=== PATIENT | female | born 1955 | race Caucasian/White ===

== ENCOUNTER → 2018-01-03 | Outpatient (CLI) | payer BC ==
[2018-01-03 10:19] LABS: Basophils # (A) 0.1 k/uL (0-0.2); Basophils % (A) 1 %; Eosinophils # (A) 0.4 k/uL (0-0.7); Eosinophils % (A) 6 %; HCT 44.4 % (34.0-46.0); HGB 14.7 gm/dL (11.4-16.0); Lymphocytes # (A) 2.6 k/uL (1.0-4.8); Lymphocytes % (A) 34 %; MCH 29.6 pg (25.0-35.0); MCHC 33.1 g/dL (31.0-37.0); MCV 89.3 fL (80.0-100.0); Monocytes # (A) 0.5 k/uL (0-1.0); Monocytes % (A) 6 %; Neutrophils # (A) 4.1 k/uL (1.3-7.7); Neutrophils % (A) 52 %; Platelet Count 238 k/uL (150-450); RBC 4.97 m/uL (3.80-5.40); RDW 12.6 % (11.5-15.5); WBC 7.9 k/uL (3.8-10.6)
[2018-01-03 10:37] LABS: Albumin 3.8 g/dL (3.5-5.0); Potassium 4.9 mmol/L (3.5-5.1); Total Bilirubin 0.4 mg/dL (0.2-1.3); Total Protein 7.4 g/dL (6.3-8.2)
[2018-01-03 10:52] LABS: T4, Free (Free Thyroxine) 1.74 ng/dL (0.78-2.19)
== END | disposition home or self-care (01) ==
LOC: LABWHC1 08:41
PROVIDERS: ATTEND Family Medicine
DX: I10 Essential (primary) hypertension (principal); E03.9 Hypothyroidism, unspecified; E11.65 Type 2 diabetes mellitus with hyperglycemia
CPT/HCPCS: 36415; 80053; 80061; 82043; 82570; 83036; 84439; 84443; 85025

== ENCOUNTER 2019-05-16 21:10 | Inpatient (IN) | payer MEDICARE ==
[2019-05-16] MEDS ORDERED: ONDANSETRON 4 MG/2 ML VIAL IVP STA (21:27)
[2019-05-16] MEDS ORDERED: SODIUM CHLORIDE 0.9% 1,000 ML IV STA (21:27)
--- NOTE | 2019-05-16 22:02 | ED ---
General Adult HPI - General Chief complaint: Nausea/Vomiting/Diarrhea Stated complaint: Vomiting Time Seen by Provider: 05/16/19 21:26 Source: patient Mode of arrival: ambulatory Limitations: no limitations - History of Present Illness Initial comments: Cara is a pleasant 63 yo female with PMH of kidney stones who presents to the ER this evening for evaluation of 2 days of intermittent left sided flank pain with associated nausea and vomiting. Patient reports the pain began yesterday around 4 AM it woke her from sleep, she had intermittent episodes of severe stabbing flank pain with associated nausea and vomiting. She didn't eat anything throughout the day yesterday but her insulin. Monitor her glucose which was fine. She was able sleep throughout the night, she forced herself to eat a small breakfast today, throughout the day she's continued to have episodes of intermittent pain. She's not noticed any dysuria or obvious hematuria or ur inary frequency. She's not had any change in bowel or bladder habits. She has no history of colitis or diverticulitis. Her last colonoscopy was less than 5 years ago was normal and she was advised to follow-up in 10 years. Patient states that this pain is similar but not as severe as her previous kidney stone. However she since to have more nausea and GI symptoms with this pain then she recalls with her previous kidney stone. - Related Data Home Medications Medication Instructions Recorded Confirmed Clopidogrel [Plavix] 75 mg PO DAILY 01/31/14 05/16/19 Metoprolol Tartrate [Lopressor] 25 mg PO BID 01/31/14 05/16/19 Ranitidine HCl [Zantac] 300 mg PO BID 01/31/14 05/16/19 Insulin Aspart (For Pump) [NovoLOG 0.01 unit SQ-PUMP CONTINUOUS 05/16/19 (For Pump)] Levothyroxine Sodium [Synthroid] 112 mcg PO DAILY 05/16/19 05/16/19 Losartan Potassium 100 mg PO DAILY 05/16/19 05/16/19 amLODIPine [Norvasc] 5 mg PO DAILY 05/16/19 05/16/19 metFORMIN HCL ER [Glucophage Xr] 1,000 mg PO DAILY 05/16/19 05/16/19 Allergies Allergy/AdvReac Type Severity Reaction Status Date / Time No Known Allergies Allergy Verified 05/16/19 21:44 Review of Systems ROS Statement: Those systems with pertinent positive or pertinent negative responses have been documented in the HPI. ROS Other: All systems not noted in ROS Statement are negative. Past Medical History Past Medical History: Diabetes Mellitus, Hypertension Additional Past Medical History / Comment(s): hypothyroid History of Any Multi-Drug Resistant Organisms: None Reported Past Surgical History: Hysterectomy Past Psychological History: No Psychological Hx Reported Smoking Status: Never smoker Past Alcohol Use History: None Reported Past Drug Use History: None Reported General Exam - General Exam Comments Initial Comments: Physical Exam GENERAL: Patient is well-developed and well-nourished. Patient is nontoxic and well-hydrated and is in no distress. HENT: Normocephalic, Atraumatic. EYES: PERRL, EOMI PULMONARY: Unlabored respirations. No audible rales rhonchi or wheezing was noted. CARDIOVASCULAR: There is a regular rate and rhythm without any murmurs gallops or rubs. ABDOMEN: Soft and nontender with normal bowel sounds. Tenderness to percussion of left flank No tenderness to palpation left abdomen Non-peritoneal SKIN: Skin is clear with no lesions or rashes and otherwise unremarkable. : Deferred NEUROLOGIC: Patient is alert and oriented x3. Moving all extremities spontaneously MUSCULOSKELETAL: Normal extremities with adequate strength and full range of motion. No lower extremity swelling or edema. No calf tenderness. PSYCHIATRIC: Normal psychiatric evaluation. Limitations: no limitations Course Vital Signs 05/16/19 05/16/19 05/17/19 21:12 22:15 00:00 Temperature 98.6 F Pulse Rate 92 87 Respiratory 16 18 20 Rate Blood Pressure 143/71 227/85 O2 Sat by Pulse 97 97 Oximetry 05/17/19 01:00 Temperature 99.0 F Pulse Rate 90 Respiratory 17 Rate Blood Pressure 151/66 O2 Sat by Pulse 97 Oximetry Medical Decision Making - Medical Decision Making The patient was seen and evaluated history is obtained from the patient and at bedside and 63-year-old female with type I diabetic with history of kidney stones presenting with colicky left-sided flank pain with associated nausea vomiting no change in bowel or bladder habits Patient reports she had episode of pain and vomiting prior to arrival in the emergency department her pain is subsequently improved significantly Labs and imaging were ordered Labs with leukocytosis is likely reactive to the nausea and vomiting, patient is mildly hyperglycemic with acute kidney injury - IV fluids ordered Patient is also noted to be mildly hyperglycemic, glucose in the 260s also reading in the 260s on continuous glucose monitoring pump. At this point we will discontinue her insulin pump and treat with subcutaneous insulin. Urinalysis with gross contamination however given the patient's symptoms we will give a dose of Rocephin Patient with persistent nausea and vomiting after first dose of antiemetics, morphine Reglan and Benadryl were ordered Given the patient is a type I diabetic with difficult to control sugars, persistent nausea and vomiting we will plan to admit for fluid resuscitation glucose monitoring and further evaluation. Patient care was discussed with Dr. Goodwin who agrees with this plan. She was reevaluated after repeat medications, pain improved to a 3 out of 10, nausea is resolved she's had no further vomiting in the emergency department. Patient transferred to the floor for admission. - Lab Data Result diagrams: 05/16/19 22:10 05/16/19 22:10 Lab Results 05/16/19 05/16/19 05/16/19 Range/Units 22:05 22:10 22:10 WBC 19.1 H (3.8-10.6) k/uL RBC 4.70 (3.80-5.40) m/uL Hgb 13.6 (11.4-16.0) gm/dL Hct 42.5 (34.0-46.0) % MCV 90.4 (80.0-100.0) fL MCH 28.9 (25.0-35.0) pg MCHC 31.9 (31.0-37.0) g/dL RDW 13.0 (11.5-15.5) % Plt Count 291 (150-450) k/uL Neutrophils % 84 % Lymphocytes % 9 % Monocytes % 4 % Eosinophils % 2 % Basophils % 1 % Neutrophils # 16.0 H (1.3-7.7) k/uL Lymphocytes # 1.7 (1.0-4.8) k/uL Monocytes # 0.7 (0-1.0) k/uL Eosinophils # 0.3 (0-0.7) k/uL Basophils # 0.2 (0-0.2) k/uL Sodium 138 (137-145) mmol/L Potassium 4.8 (3.5-5.1) mmol/L Chloride 103 (98-107) mmol/L Carbon Dioxide 20 L (22-30) mmol/L Anion Gap 15 mmol/L BUN 25 H (7-17) mg/dL Creatinine 1.54 H (0.52-1.04) mg/dL Est GFR (CKD-EPI)AfAm 41 (>60 ml/min/1.73 sqM) Est GFR (CKD-EPI)NonAf 35 (>60 ml/min/1.73 sqM) Glucose 262 H (74-99) mg/dL Calcium 9.6 (8.4-10.2) mg/dL Total Bilirubin 0.7 (0.2-1.3) mg/dL AST 32 (14-36) U/L ALT 9 (9-52) U/L Alkaline Phosphatase 108 (38-126) U/L Total Protein 8.5 H (6.3-8.2) g/dL Albumin 4.1 (3.5-5.0) g/dL Lipase 47 (23-300) U/L Urine Color Yellow Urine Appearance Cloudy H (Clear) Urine pH 5.5 (5.0-8.0) Ur Specific [place] 1.022 (1.001-1.035) Urine Protein 1+ H (Negative) Urine Glucose (UA) 3+ H (Negative) Urine Ketones 1+ H (Negative) Urine Blood Moderate H (Negative) Urine Nitrite Negative (Negative) Urine Bilirubin Negative (Negative) Urine Urobilinogen <2.0 (<2.0) mg/dL Ur Leukocyte Esterase Large H (Negative) Urine RBC 40 H (0-5) /hpf Urine WBC Clumps Occasional H (None) /hpf Ur Squamous Epith Cells 20 H (0-4) /hpf Urine Bacteria Moderate H (None) /hpf Urine Mucus Rare H (None) /hpf Urine Yeast (Budding) Few H (None) /hpf Disposition Clinical Impression: Kidney stone on left side, Nausea and vomiting, Leukocytosis Disposition: HOME SELF-CARE Condition: Stable Is patient prescribed a controlled substance at d/c from ED?: No
[2019-05-16 22:28] LABS: Basophils # (A) 0.2 k/uL (0-0.2); Basophils % (A) 1 %; Eosinophils # (A) 0.3 k/uL (0-0.7); Eosinophils % (A) 2 %; HCT 42.5 % (34.0-46.0); HGB 13.6 gm/dL (11.4-16.0); Lymphocytes # (A) 1.7 k/uL (1.0-4.8); Lymphocytes % (A) 9 %; MCH 28.9 pg (25.0-35.0); MCHC 31.9 g/dL (31.0-37.0); MCV 90.4 fL (80.0-100.0); Mean Platelet Volume 7.2; Monocytes # (A) 0.7 k/uL (0-1.0); Monocytes % (A) 4 %; Neutrophils % (A) 84 %; Platelet Count 291 k/uL (150-450); WBC 19.1 k/uL (3.8-10.6)
[2019-05-16 22:40] LABS: Appearance,Urine Cloudy (Clear); Bacteria,Urine Moderate /hpf; Bilirubin,Urine Negative (Negative); Blood,Urine Moderate (Negative); Budding Yeast,Urine Few /hpf; Color,Urine Yellow; Glucose,Urine (UA) 3+ (Negative); Ketones,Urine 1+ (Negative); Leukocyte Esterase,Urine Large (Negative); Mucus,Urine Rare /hpf; Nitrite,Urine Negative (Negative); PH, Urine 5.5 (5.0-8.0); Protein,Urine 1+ (Negative); RBC,Urine 40 /hpf (0-5); Specific Gravity,Urine 1.022 (1.001-1.035); Squamous Epithelial Cell,Urine 20 /hpf (0-4); Urobilinogen,Urine <2.0 mg/dL (<2.0)
--- NOTE | 2019-05-16 22:47 | XR ---
EXAMINATION TYPE: XR KUB DATE OF EXAM: 05/16/2019 COMPARISON: NONE HISTORY: Left flank pain TECHNIQUE: 2 views FINDINGS: There is no sign of intestinal obstruction or pneumoperitoneum. Fecal pattern is normal. Ellie ng bases are clear. There are no pathologic calcifications over the kidneys. There is 7 mm calcificat ion over the right paraspinal lumbar spine at the L4 level. This is opposite the side of the pain. Cl inical significance is not clear. IMPRESSION: Calcification on the right side at the L4 level of uncertain significance. No sign of acu te abdomen. No free air. No calcifications seen on the left side.
[2019-05-16 22:55] LABS: Calcium 9.6 mg/dL (8.4-10.2); Total Bilirubin 0.7 mg/dL (0.2-1.3)
[2019-05-16 23:08] LABS: Albumin 4.1 g/dL (3.5-5.0); Potassium 4.8 mmol/L (3.5-5.1); Total Protein 8.5 g/dL (6.3-8.2)
[2019-05-16] MEDS ORDERED: cefTRIAXone IN SWFI 1,000 MG/10 ML SYRINGE IVP STA (23:26)
--- NOTE | 2019-05-16 23:52 | CT ---
EXAMINATION TYPE: CT renal stones wo con DATE OF EXAM: 05/16/2019 HISTORY: Left Flank pain CT DLP: 1593.40 mGycm. Automated Exposure Control for Dose Reduction was Utilized. TECHNIQUE: CT scan of the abdomen and pelvis is performed without oral or IV contrast. COMPARISON: 01/31/2014 FINDINGS: There is hiatal hernia. There is minimal atelectasis left lower lobe adjacent to the hiata l hernia. There is no pleural effusion. There is coronary artery calcification. There is no pericardi al effusion. Liver shows no focal defect. There is possible cholesterol gallstone. Spleen is intact. There is no h epatic mass. The stomach is intact. There is no adrenal mass. There is left-sided hydronephrosis and mild perinephric edema. There is pro ximal left hydroureter. There is 4 mm calculus proximal left ureter. There is extensive renal vascula r calcification. There are probably multiple small renal calculi bilaterally measuring less than 3 mm . There is no retroperitoneal adenopathy. Bladder distends smoothly. There is no inguinal hernia. The re is no free fluid in the pelvis. There is no mesenteric edema. There is no ascites. The appendix ap pears normal. There are a few sigmoid diverticula. There is no sign of diverticulitis. There is multi level lumbar spondylotic changes. There is no compression fracture. There is vacuum disc from L2 to S 1. The bony pelvis is intact. There is umbilical hernia that contains fat. Unchanged. IMPRESSION: There is probably a single gallstone. No dilated ducts. Left-sided hydronephrosis related to obstructing small calculus proximal left ureter that is a change compared to old exam. Atherosclerotic vascular disease. Numerous renal calcifications that are mostl y vascular that are a change compared to old exam. Hiatal hernia unchanged.
[2019-05-16] MEDS ORDERED: METOCLOPRAMIDE 5 MG/ML 2 ML VIAL IVP STA (23:58)
[2019-05-16] MEDS ORDERED: MORPHINE SULFATE 4 MG/ML SYRINGE IVP STA (23:59)
[2019-05-16] MEDS ORDERED: diphenhydrAMINE 50 MG/ML 1 ML VIAL IVP STA (23:59)
[2019-05-17] MEDS ORDERED: MORPHINE SULFATE 4 MG/ML SYRINGE IV PRN (00:58)
[2019-05-17] MEDS ORDERED: NALOXONE 0.4 MG/ML 1 ML VIAL IV PRN (00:58)
[2019-05-17] MEDS ORDERED: INSULIN REGULAR 100 UNIT/ML VIAL SQ ONE (01:00)
[2019-05-17] MEDS ORDERED: SODIUM CHLORIDE 0.9% 1,000 ML IV SCH (01:00)
--- NOTE | 2019-05-17 02:30 | P.HPIM ---
History of Present Illness H&P Date: 05/17/19 Patient is a 63-year-old female with a PMH of type 1 diabetes mellitus (on insulin pump), hypertension, hypothyroid rhythm, and GERD who presented to the ED with left flank and suprapubic pain along with chills. The patient reports that she was in her usual state of health until 05/15 at 5 PM when she developed left flank pain. The pain radiated towards her groin, was a 8 out of 10 at its worst, constant, with no alleviating or exacerbating features. The patient notes that she previously had a kidney stone many decades ago and that this pain was similar. The pain then gradually moved entirely towards her suprapubic region by earlier today. At the time of interview, she notes that her pain had improved to a 2/10. She noted subjective chills along with nausea and multiple episodes of vomiting at home. She denied dysuria, hematuria,dizziness, or diarrhea. She underwent an extensive evaluation in the emergency room with a renal CT showing left-sided hydronephrosis along with a 4 mm calculus. Laboratory evaluation revealed WBC count of 19, hemoglobin 13.6, platelets 291, sodium 138, potassium 4.8, BUN 25, creatinine 1.54, and a glucose of 262. UA revealed 20 epithelial cells w/ large LEs. Review of Systems Pertinent positives and negatives as discussed in HPI, a complete review of systems was performed and all other systems are negative. Past Medical History Past Medical History: Diabetes Mellitus, Hypertension Additional Past Medical History / Comment(s): hypothyroid History of Any Multi-Drug Resistant Organisms: None Reported Past Surgical History: Hysterectomy Past Psychological History: No Psychological Hx Reported Smoking Status: Never smoker Past Alcohol Use History: None Reported Past Drug Use History: None Reported - Past Family History Mother Family Medical History: No Reported History Father Additional Family Medical History / Comment(s): Heart history Medications and Allergies Home Medications Medication Instructions Recorded Confirmed Type Clopidogrel [Plavix] 75 mg PO DAILY 01/31/14 05/16/19 History Metoprolol Tartrate [Lopressor] 25 mg PO BID 01/31/14 05/16/19 History Ranitidine HCl [Zantac] 300 mg PO BID 01/31/14 05/16/19 History Insulin Aspart (For Pump) [NovoLOG 0.01 unit SQ-PUMP CONTINUOUS 05/16/19 05/16/19 History (For Pump)] Levothyroxine Sodium [Synthroid] 112 mcg PO DAILY 05/16/19 05/16/19 History Losartan Potassium 100 mg PO DAILY 05/16/19 05/16/19 History amLODIPine [Norvasc] 5 mg PO DAILY 05/16/19 05/16/19 History metFORMIN HCL ER [Glucophage Xr] 1,000 mg PO DAILY 05/16/19 05/16/19 History Allergies Allergy/AdvReac Type Severity Reaction Status Date / Time No Known Allergies Allergy Verified 05/16/19 21:44 Physical Exam Vitals: Vital Signs Temp Pulse Resp BP Pulse Ox 05/17/19 01:00 99.0 F 90 17 151/66 97 05/17/19 00:00 87 20 227/85 97 05/16/19 22:15 18 05/16/19 21:12 98.6 F 92 16 143/71 97 Intake and Output 05/16/19 05/16/19 05/17/19 14:59 22:59 06:59 Other: Weight 113.398 kg General: non toxic, no distress, appears at stated age, morbidly obese Derm: no unusual rashes/lesions no unusual ecchymoses, warm, dry Head: atraumatic, normocephalic, symmetric Eyes: EOMI, no lid lag, anicteric sclera, pupils equal round reactive to light ENT: Nose and ears atraumatic, no thrush, no pharyngeal erythema Neck: No thyromegaly, no cervical lymphadenopathy, trachea midline, supple Mouth: no lip lesion, mucus membranes moist Cardiovascular: S1S2 reg, no murmur, positive posterior tibial pulse bilateral, no edema, capillary refill less than 2 seconds Lungs: CTA bilateral, no rhonchi, no rales , no accessory muscle use Abdominal: soft, suprapubic tenderness to palpation, no CVA tenderness, no guarding, no appreciable organomegaly, normal bowel sounds Ext: no gross muscle atrophy, muscle strength 5 out of 5 in all 4 extremities grossly, no contractures, Neuro: CN II-XI grossly intact, light touch intact all 4 extremities, finger to nose within normal limits, Psych: Alert, oriented, appropriate affect Results CBC & Chem 7: 05/16/19 22:10 05/16/19 22:10 Labs: Abnormal Lab Results - Last 24 Hours (Table) 10/20/19 10/20/19 10/20/19 Range/Units 22:05 22:10 22:10 WBC 19.1 H (3.8-10.6) k/uL Neutrophils # 16.0 H (1.3-7.7) k/uL Carbon Dioxide 20 L (22-30) mmol/L BUN 25 H (7-17) mg/dL Creatinine 1.54 H (0.52-1.04) mg/dL Glucose 262 H (74-99) mg/dL Total Protein 8.5 H (6.3-8.2) g/dL Urine Appearance Cloudy H (Clear) Urine Protein 1+ H (Negative) Urine Glucose (UA) 3+ H (Negative) Urine Ketones 1+ H (Negative) Urine Blood Moderate H (Negative) Ur Leukocyte Esterase Large H (Negative) Urine RBC 40 H (0-5) /hpf Urine WBC Clumps Occasional H (None) /hpf Ur Squamous Epith Cells 20 H (0-4) /hpf Urine Bacteria Moderate H (None) /hpf Urine Mucus Rare H (None) /hpf Urine Yeast (Budding) Few H (None) /hpf Assessment and Plan Plan: L sided nephrolithiasis w/ hydronephrosis and UTI -Small stone, likely will pass spontaneously -Continue with IV fluids -Continue with ceftriaxone in light of chills, leukocytosis, and abnormal UA -Follow-up cultures Type 1 diabetes mellitus with hyperglycemia -Patient doesn't know her current pump settings. She isn't sure of how much insulin she gets -Received 6 U of bolus in ED via pump -We'll switch patient to subcu insulin for now in light of poorly controlled hyperglycemia -Consult software educator and evaluate pump and may restart as warranted -Blood glucose monitoring and sliding scale GRETCHEN vs CKD -Monitor BMP for now -C/w IVFs HTN, Hypothyroid -C/w home meds DVT prophylaxis -Heparin The patient is admitted with an anticipated less than 2 midnight stay for evaluation of UTI and nephrolithiasis CODE STATUS: Full Code Discussed with: Patient, Anticipated discharge date: 1-[address]: Home A total of 40 minutes was spent on the care of this complex patient more than 50% of the time was spent in counseling and care coordination.
[2019-05-17] MEDS: LEVOTHYROXINE 112 MCG TAB PO SCH (05:17)
[2019-05-17 06:59] LABS: Glucose,Whole Blood 214 mg/dL (75-99)
[2019-05-17] MEDS: HEPARIN SODIUM,PORCINE 5,000 UNIT/ML 1 ML VIAL SQ SCH ×4 (07:18→23:22)
[2019-05-17] MEDS: INSULIN ASPART (NovoLOG) 100 UNIT/ML VIAL SQ SCH ×3 (07:19→18:03)
[2019-05-17] MEDS: ONDANSETRON 4 MG/2 ML VIAL IVP PRN ×2 (07:22→20:11)
[2019-05-17] MEDS: CLOPIDOGREL 75 MG TAB PO SCH (07:29)
[2019-05-17] MEDS: LOSARTAN 50 MG TAB PO SCH (07:29)
[2019-05-17] MEDS: amLODIPine 5 MG TAB PO SCH (07:29)
[2019-05-17] MEDS: METOPROLOL TARTRATE 25 MG TAB PO SCH ×2 (07:29→20:12)
[2019-05-17] MEDS ORDERED: HYDROcodone/APAP 5-325MG 1 EACH TAB PO PRN (08:02)
[2019-05-17] MEDS: SODIUM CHLORIDE 0.45% 1,000 ML IV SCH ×3 (08:16→20:13)
[2019-05-17] MEDS: TAMSULOSIN 0.4 MG CAP.ER.24H PO SCH (08:16)
[2019-05-17 08:58] LABS: HCT 37.2 % (34.0-46.0); HGB 12.1 gm/dL (11.4-16.0); MCH 29.8 pg (25.0-35.0); MCHC 32.5 g/dL (31.0-37.0); MCV 91.8 fL (80.0-100.0); Mean Platelet Volume 6.3; Platelet Count 270 k/uL (150-450); RBC 4.05 m/uL (3.80-5.40); WBC 16.7 k/uL (3.8-10.6)
[2019-05-17 09:19] LABS: Calcium 8.7 mg/dL (8.4-10.2); Potassium 4.1 mmol/L (3.5-5.1)
[2019-05-17] MEDS ORDERED: SUCCINYLCHOLINE CHLORIDE VIAL 200 MG/10 ML VIAL IV ONE (10:35)
[2019-05-17] MEDS ORDERED: MIDAZOLAM 2 MG/2 ML VIAL ONE (10:35)
[2019-05-17] MEDS ORDERED: PROPOFOL 10 MG/ML 20 ML VIAL IV ONE (10:35)
[2019-05-17] MEDS ORDERED: DEXAMETHASONE SOD PHOS (MDV) 100 MG/10 ML VIAL ONE (10:35)
[2019-05-17] MEDS ORDERED: fentaNYL (PF) 50 MCG/ML 2 ML AMP ONE (10:35)
[2019-05-17] MEDS ORDERED: ONDANSETRON 4 MG/2 ML VIAL ONE (10:35)
[2019-05-17 11:07] LABS: Glucose,Whole Blood 226 mg/dL (75-99)
[2019-05-17] MEDS ORDERED: IV FLUID CONTINUATION 1,000 ML IV ONE ×2 (15:55)
[2019-05-17 16:08] LABS: Glucose,Whole Blood 211 mg/dL (75-99)
--- NOTE | 2019-05-17 16:13 | P.GSHP ---
History of Present Illness H&P Date: 05/17/19 Chief Complaint: left flank pain Ms Martinez is 63 yo female with hx of 4 mm left sided ureteral calculi. She presented to the ED with chief complaint of left flank pain that is associated with N/V. Also complained of chills, but denies any fever. She has hx of DM, been managed with an insulin pump. She has hx of stone in the past that she passed spontaneously - Constitutional Constitutional: Reports chills, Denies fever - Cardiovascular Cardiovascular: Denies chest pain, Denies leg edema - Respiratory Respiratory: Denies cough, Denies dyspnea - Gastrointestinal Gastrointestinal: Reports nausea, Reports vomiting - Genitourinary (Female) Genitourinary: Reports flank pain, Denies dysuria, Denies hematuria - Genitourinary (Male) Genitourinary: Reports flank pain, Denies dysuria, Denies hematuria Past Medical History Past Medical History: Diabetes Mellitus, Hypertension Additional Past Medical History / Comment(s): hypothyroid History of Any Multi-Drug Resistant Organisms: None Reported Past Surgical History: Hysterectomy Past Anesthesia/Blood Transfusion Reactions: Postoperative Nausea & Vomiting (PONV) Past Psychological History: No Psychological Hx Reported Smoking Status: Never smoker Past Alcohol Use History: None Reported Past Drug Use History: None Reported - Past Family History Mother Family Medical History: No Reported History Father Additional Family Medical History / Comment(s): Heart history Medications and Allergies Home Medications Medication Instructions Recorded Confirmed Type Clopidogrel [Plavix] 75 mg PO DAILY 01/31/14 05/16/19 History Metoprolol Tartrate [Lopressor] 25 mg PO BID 01/31/14 05/16/19 History Ranitidine HCl [Zantac] 300 mg PO BID 01/31/14 05/16/19 History Insulin Aspart (For Pump) [NovoLOG 0.01 unit SQ-PUMP CONTINUOUS 05/16/19 05/16/19 History (For Pump)] Levothyroxine Sodium [Synthroid] 112 mcg PO DAILY 05/16/19 05/16/19 History Losartan Potassium 100 mg PO DAILY 05/16/19 05/16/19 History amLODIPine [Norvasc] 5 mg PO DAILY 05/16/19 05/16/19 History metFORMIN HCL ER [Glucophage Xr] 1,000 mg PO DAILY 05/16/19 05/16/19 History Allergies Allergy/AdvReac Type Severity Reaction Status Date / Time No Known Allergies Allergy Verified 05/16/19 21:44 Surgical - Exam Vital Signs Temp Pulse Resp BP Pulse Ox 98.6 F 92 16 143/71 97 05/16/19 21:12 05/16/19 21:12 05/16/19 21:12 05/16/19 21:12 05/16/19 21:12 - General well developed, well nourished, no distress, no pain - ENT normal nares, no nasal discharge - Respiratory normal expansion, normal respiratory effort - Cardiovascular Rhythm: regular - Abdomen Abdomen: soft, non tender, no rebound, no distended - Psychiatric oriented to time, oriented to person, oriented to place Results - Labs 05/17/19 08:26 05/17/19 08:26 Abnormal Lab Results - Last 24 Hours (Table) 05/16/19 05/16/19 05/16/19 Range/Units 22:05 22:10 22:10 WBC 19.1 H (3.8-10.6) k/uL Neutrophils # 16.0 H (1.3-7.7) k/uL Carbon Dioxide 20 L (22-30) mmol/L BUN 25 H (7-17) mg/dL Creatinine 1.54 H (0.52-1.04) mg/dL Glucose 262 H (74-99) mg/dL POC Glucose (mg/dL) (75-99) mg/dL Total Protein 8.5 H (6.3-8.2) g/dL Urine Appearance Cloudy H (Clear) Urine Protein 1+ H (Negative) Urine Glucose (UA) 3+ H (Negative) Urine Ketones 1+ H (Negative) Urine Blood Moderate H (Negative) Ur Leukocyte Esterase Large H (Negative) Urine RBC 40 H (0-5) /hpf Urine WBC Clumps Occasional H (None) /hpf Ur Squamous Epith Cells 20 H (0-4) /hpf Urine Bacteria Moderate H (None) /hpf Urine Mucus Rare H (None) /hpf Urine Yeast (Budding) Few H (None) /hpf 05/17/19 05/17/19 05/17/19 Range/Units 06:47 08:26 08:26 WBC 16.7 H (3.8-10.6) k/uL Neutrophils # (1.3-7.7) k/uL Carbon Dioxide 20 L (22-30) mmol/L BUN 24 H (7-17) mg/dL Creatinine 1.54 H (0.52-1.04) mg/dL Glucose 252 H (74-99) mg/dL POC Glucose (mg/dL) 214 H (75-99) mg/dL Total Protein (6.3-8.2) g/dL Urine Appearance (Clear) Urine Protein (Negative) Urine Glucose (UA) (Negative) Urine Ketones (Negative) Urine Blood (Negative) Ur Leukocyte Esterase (Negative) Urine RBC (0-5) /hpf Urine WBC Clumps (None) /hpf Ur Squamous Epith Cells (0-4) /hpf Urine Bacteria (None) /hpf Urine Mucus (None) /hpf Urine Yeast (Budding) (None) /hpf 05/17/19 Range/Units 11:05 WBC (3.8-10.6) k/uL Neutrophils # (1.3-7.7) k/uL Carbon Dioxide (22-30) mmol/L BUN (7-17) mg/dL Creatinine (0.52-1.04) mg/dL Glucose (74-99) mg/dL POC Glucose (mg/dL) 226 H (75-99) mg/dL Total Protein (6.3-8.2) g/dL Urine Appearance (Clear) Urine Protein (Negative) Urine Glucose (UA) (Negative) Urine Ketones (Negative) Urine Blood (Negative) Ur Leukocyte Esterase (Negative) Urine RBC (0-5) /hpf Urine WBC Clumps (None) /hpf Ur Squamous Epith Cells (0-4) /hpf Urine Bacteria (None) /hpf Urine Mucus (None) /hpf Urine Yeast (Budding) (None) /hpf Microbiology - Last 24 Hours (Table) 05/17/19 09:50 Urine Culture - Preliminary Urine,Voided Diabetes panel 05/16/19 05/17/19 Range/Units 22:10 08:26 Sodium 138 138 (137-145) mmol/L Potassium 4.8 4.1 (3.5-5.1) mmol/L Chloride 103 105 (98-107) mmol/L Carbon Dioxide 20 L 20 L (22-30) mmol/L BUN 25 H 24 H (7-17) mg/dL Creatinine 1.54 H 1.54 H (0.52-1.04) mg/dL Glucose 262 H 252 H (74-99) mg/dL Calcium 9.6 8.7 (8.4-10.2) mg/dL AST 32 (14-36) U/L ALT 9 (9-52) U/L Alkaline Phosphatase 108 (38-126) U/L Total Protein 8.5 H (6.3-8.2) g/dL Albumin 4.1 (3.5-5.0) g/dL Calcium panel 05/16/19 05/17/19 Range/Units 22:10 08:26 Calcium 9.6 8.7 (8.4-10.2) mg/dL Albumin 4.1 (3.5-5.0) g/dL Pituitary panel 05/16/19 05/17/19 Range/Units 22:10 08:26 Sodium 138 138 (137-145) mmol/L Potassium 4.8 4.1 (3.5-5.1) mmol/L Chloride 103 105 (98-107) mmol/L Carbon Dioxide 20 L 20 L (22-30) mmol/L BUN 25 H 24 H (7-17) mg/dL Creatinine 1.54 H 1.54 H (0.52-1.04) mg/dL Glucose 262 H 252 H (74-99) mg/dL Calcium 9.6 8.7 (8.4-10.2) mg/dL Adrenal panel 05/16/19 05/17/19 Range/Units 22:10 08:26 Sodium 138 138 (137-145) mmol/L Potassium 4.8 4.1 (3.5-5.1) mmol/L Chloride 103 105 (98-107) mmol/L Carbon Dioxide 20 L 20 L (22-30) mmol/L BUN 25 H 24 H (7-17) mg/dL Creatinine 1.54 H 1.54 H (0.52-1.04) mg/dL Glucose 262 H 252 H (74-99) mg/dL Calcium 9.6 8.7 (8.4-10.2) mg/dL Total Bilirubin 0.7 (0.2-1.3) mg/dL AST 32 (14-36) U/L ALT 9 (9-52) U/L Alkaline Phosphatase 108 (38-126) U/L Total Protein 8.5 H (6.3-8.2) g/dL Albumin 4.1 (3.5-5.0) g/dL - Imaging CT scan - abdomen: image reviewed (4 left sided ureteral calculi with hydronephrosis) Assessment and Plan Assessment: 63 yo female with hx of 4 left sided ureteral calculi with hydronephrosis. Her UA is concerning for UTI. Her WBC is 19 on admission Plan: -Given her UTI, and elevated WBC, I discussed with her that I recommend a cystoscopy with left sided stent placement. Discussed with her that given her UTI, primary ureteroscopy is not recommended, Will board and consent for cyto scopy and left ureteral stent placement for today -Keep on Abx -
[2019-05-17] MEDS ORDERED: SODIUM CHLORIDE 0.9% 100 ML with ceFAZolin 2,000 MG IV ONE ×2 (16:30)
[2019-05-17 17:41] LABS: Glucose,Whole Blood 219 mg/dL (75-99)
--- NOTE | 2019-05-17 17:52 | FL ---
Fluoroscopy INDICATION: Pain FINDINGS: Fluoroscopy time: 1 seconds. Images obtained: 1. IMPRESSIONS: 1. Documentation of fluoroscopy.
[2019-05-17] MEDS: FAMOTIDINE 20 MG TAB PO SCH (20:12)
[2019-05-17] MEDS ORDERED: INSULIN ASPART (NovoLOG) 100 UNIT/ML VIAL SQ PRN (20:12)
[2019-05-17] MEDS ORDERED: INSPUCOR MISCELLANE PRN (20:12)
[2019-05-17] MEDS ORDERED: INSULIN PUMP BASAL RATES 1 EACH MISC MISCELLANE PRN (20:12)
[2019-05-17 20:20] LABS: Glucose,Whole Blood 205 mg/dL (75-99)
[2019-05-17 20:35] LABS: Hemoglobin A1C 8.3 % (4.0-6.0)
[2019-05-17] MEDS: INSULIN PUMP MEAL BOLUS 1 UNIT MISC MISCELLANE SCH (20:45)
--- NOTE | 2019-05-17 21:01 | P.PN ---
Progress Note - Text Progress Note Date: 05/17/19 (delayed charting patient seen at approximately 1100) Hospitalist Interval Note Patient seen and examined at bedside. She is still having some nausea and vomited 1 today, her pain is much improved but not completely resolved, she denies any chest discomfort or shortness of breath. Many concerns about possible need for stents. Asked her to speak with urology regarding concerns. Vital signs reviewed General: non toxic, no distress, appears at stated age, obese Derm: warm, dry Head: atraumatic, normocephalic, symmetric Eyes: EOMI, no lid lag, anicteric sclera Mouth: no lip lesion, oral mucous membranes dry dry Cardiovascular: S1S2 reg, no murmur, positive posterior tibial pulse bilateral, Lungs: Decreased breath sounds bilateral, no rhonchi, no rales , no accessory muscle use Abdominal: soft, nontender to palpation, no guarding, no appreciable organomegaly Ext: no gross muscle atrophy, no edema, no contractures Neuro: CN II-XI grossly intact, no focal neuro deficits Psych: Alert, oriented, appropriate affect Assessment/Plan: 1. Obstructing ureteral calculi with resulting left-sided hydronephrosis and urinary tract infection -Continue with Rocephin, pain control, add Flomax, increase IV fluids, urology consulted and plans are for surgery today 2. Type 2 diabetes mellitus, insulin requiring, no longer productive of endogenous insulin-case discussed with tobacco prevention health educator, will leave pump off until after surgery and then plan on reinserting pump. Patient had a hemoglobin A1c of greater than 13 approximately one year ago and states her last hemoglobin A1c was 7.8. She follows with Dr. Henderson from endocrinology. This is an update note for patient , for full note on 05/17 see H and P. There is no charge associated with this note.
[2019-05-18] MEDS: SODIUM CHLORIDE 0.45% 1,000 ML IV SCH ×3 (01:21→09:12)
[2019-05-18 02:03] LABS: Glucose,Whole Blood 196 mg/dL (75-99)
[2019-05-18] MEDS: LEVOTHYROXINE 112 MCG TAB PO SCH (05:48)
[2019-05-18 07:02] LABS: Glucose,Whole Blood 197 mg/dL (75-99)
[2019-05-18] MEDS: INSULIN PUMP MEAL BOLUS 1 UNIT MISC MISCELLANE SCH ×4 (07:18→20:16)
[2019-05-18] MEDS: HEPARIN SODIUM,PORCINE 5,000 UNIT/ML 1 ML VIAL SQ SCH ×3 (07:24→23:01)
[2019-05-18] MEDS: LOSARTAN 50 MG TAB PO SCH (07:27)
[2019-05-18] MEDS: TAMSULOSIN 0.4 MG CAP.ER.24H PO SCH (07:28)
[2019-05-18] MEDS: METOPROLOL TARTRATE 25 MG TAB PO SCH ×2 (07:28→20:15)
[2019-05-18] MEDS: CLOPIDOGREL 75 MG TAB PO SCH (07:28)
[2019-05-18] MEDS: FAMOTIDINE 20 MG TAB PO SCH (07:28)
[2019-05-18] MEDS: amLODIPine 5 MG TAB PO SCH (07:28)
[2019-05-18] MEDS ORDERED: INSULIN PUMP TARGET GLUCOSE 1 EACH MISC MISCELLANE PRN (09:04)
[2019-05-18 10:25] LABS: HCT 39.7 % (34.0-46.0); MCH 29.6 pg (25.0-35.0); MCHC 32.6 g/dL (31.0-37.0); MCV 90.7 fL (80.0-100.0); Mean Platelet Volume 6.8; Platelet Count 266 k/uL (150-450); RBC 4.38 m/uL (3.80-5.40); RDW 12.7 % (11.5-15.5); WBC 16.2 k/uL (3.8-10.6)
[2019-05-18 10:32] LABS: Calcium 8.9 mg/dL (8.4-10.2); Potassium 4.4 mmol/L (3.5-5.1)
[2019-05-18 11:45] LABS: Glucose,Whole Blood 110 mg/dL (75-99)
--- NOTE | 2019-05-18 13:17 | P.PN ---
Subjective Progress Note Date: 05/18/19 Principal diagnosis: Ureteral stent 64 yo female presented with left sided ureteral stone, She is POD #1 s/p Left ureteral stent placement. No acute overnight event Objective - Vital Signs Vital signs: Vital Signs Temp 98.0 F 05/18/19 07:00 Pulse 66 05/18/19 07:00 Resp 16 05/18/19 07:00 BP 137/70 05/18/19 07:00 Pulse Ox 95 05/18/19 07:00 Intake & Output 05/17/19 05/18/19 05/18/19 18:59 06:59 18:59 Intake Total 600 2000 Output Total 200 600 200 Balance 400 1400 -200 Intake: IV 600 Intake, IV Titration 1500 Amount Sodium Chloride 0.45% 1, 1500 000 ml @ 150 mls/hr IV . Q6H40M [facility] TO [facility] Rx#:[id number] Oral 500 Output: Urine 200 600 200 Estimated Blood Loss 0 Other: Voiding Method Toilet Toilet # Voids 1 1 - Constitutional General appearance: Present: no acute distress - Gastrointestinal General gastrointestinal: Absent: tenderness - Psychiatric Psychiatric: Present: A&O x's 3 - Labs CBC & Chem 7: 05/18/19 08:24 05/18/19 08:24 Labs: Abnormal Lab Results - Last 24 Hours (Table) 05/17/19 05/17/19 05/17/19 Range/Units 08:26 16:06 17:39 WBC (3.8-10.6) k/uL Carbon Dioxide (22-30) mmol/L BUN (7-17) mg/dL Creatinine (0.52-1.04) mg/dL Glucose (74-99) mg/dL POC Glucose (mg/dL) 211 H 219 H (75-99) mg/dL Hemoglobin A1c 8.3 H (4.0-6.0) % 05/17/19 05/18/19 05/18/19 Range/Units 20:19 02:01 06:51 WBC (3.8-10.6) k/uL Carbon Dioxide (22-30) mmol/L BUN (7-17) mg/dL Creatinine (0.52-1.04) mg/dL Glucose (74-99) mg/dL POC Glucose (mg/dL) 205 H 196 H 197 H (75-99) mg/dL Hemoglobin A1c (4.0-6.0) % 05/18/19 05/18/19 05/18/19 Range/Units 08:24 08:24 11:32 WBC 16.2 H (3.8-10.6) k/uL Carbon Dioxide 20 L (22-30) mmol/L BUN 24 H (7-17) mg/dL Creatinine 1.07 H (0.52-1.04) mg/dL Glucose 175 H (74-99) mg/dL POC Glucose (mg/dL) 110 H (75-99) mg/dL Hemoglobin A1c (4.0-6.0) % Microbiology - Last 24 Hours (Table) 05/17/19 09:50 Urine Culture - Final Urine,Voided Assessment and Plan Assessment: POD #1 S/P left ureteral stent placement Plan: -Ok to discharge from urology standpoint, please discharge on abx for minimum of 10 days - F/U in one week
[2019-05-18 17:01] LABS: Glucose,Whole Blood 106 mg/dL (75-99)
--- NOTE | 2019-05-18 18:06 | P.PN ---
Subjective Progress Note Date: 05/18/19 (Delayed charting seen at 10 AM) Principal diagnosis: Pyelonephritis Patient is a 63-year-old female with a past medical history of insulin dependent diabetes mellitus on pump, hypertension, hypothyroidism, and GERD who initially presented to the emergency department with left flank pain as well as chills. In the emergency department she underwent an extensive evaluation was ultimately found to have left-sided hydronephrosis with a 4 mm calculus, and urinary tract infection with elevated white blood cell count at 19. Initially she was found to be hyperglycemic and her insulin pump was stopped and she was treated with sliding scale insulin. She is admitted for further monitoring of her urinary tract infection and obstructive renal stone. Urology was consulted and she underwent urethral stent placement on 05/17. He did have significant improvement in her pain. On the morning of 05/18 she continued to have a significantly elevated white blood cell count. Patient seen and examined at bedside. She reports that her pain is much better, no nausea, no vomiting, and no diarrhea. Objective - Vital Signs Vital signs: Vital Signs Temp 98.3 F 05/18/19 15:00 Pulse 62 05/18/19 15:00 Resp 16 05/18/19 15:00 BP 111/58 05/18/19 15:00 Pulse Ox 95 05/18/19 07:00 Intake & Output 05/17/19 05/18/19 05/18/19 18:59 06:59 18:59 Intake Total 600 2000 Output Total 200 600 500 Balance 400 1400 -500 Intake: IV 600 Intake, IV Titration 1500 Amount Sodium Chloride 0.45% 1, 1500 000 ml @ 150 mls/hr IV . Q6H40M [facility] Rx#:[id number] Oral 500 Output: Urine 200 600 500 Estimated Blood Loss 0 Other: Voiding Method Toilet Toilet # Voids 1 1 - Exam General: non toxic, no distress, appears at stated age, obese Derm: warm, dry Head: atraumatic, normocephalic, symmetric Eyes: EOMI, no lid lag, anicteric sclera Mouth: no lip lesion, mucus membranes moist Cardiovascular: S1S2 reg, no murmur, positive posterior tibial pulse bilateral, Lungs: CTA bilateral, no rhonchi, no rales , no accessory muscle use Abdominal: soft, nontender to palpation, no guarding, no appreciable organomegaly Ext: no gross muscle atrophy, no edema, no contractures Neuro: CN II-XI grossly intact, no focal neuro deficits Psych: Alert, oriented, appropriate affect - Labs CBC & Chem 7: 05/18/19 08:24 05/18/19 08:24 Labs: Abnormal Lab Results - Last 24 Hours (Table) 05/17/19 05/17/19 05/18/19 Range/Units 08:26 20:19 02:01 WBC (3.8-10.6) k/uL Carbon Dioxide (22-30) mmol/L BUN (7-17) mg/dL Creatinine (0.52-1.04) mg/dL Glucose (74-99) mg/dL POC Glucose (mg/dL) 205 H 196 H (75-99) mg/dL Hemoglobin A1c 8.3 H (4.0-6.0) % 05/18/19 05/18/19 05/18/19 Range/Units 06:51 08:24 08:24 WBC 16.2 H (3.8-10.6) k/uL Carbon Dioxide 20 L (22-30) mmol/L BUN 24 H (7-17) mg/dL Creatinine 1.07 H (0.52-1.04) mg/dL Glucose 175 H (74-99) mg/dL POC Glucose (mg/dL) 197 H (75-99) mg/dL Hemoglobin A1c (4.0-6.0) % 05/18/19 05/18/19 Range/Units 11:32 16:49 WBC (3.8-10.6) k/uL Carbon Dioxide (22-30) mmol/L BUN (7-17) mg/dL Creatinine (0.52-1.04) mg/dL Glucose (74-99) mg/dL POC Glucose (mg/dL) 110 H 106 H (75-99) mg/dL Hemoglobin A1c (4.0-6.0) % Microbiology - Last 24 Hours (Table) 05/17/19 09:50 Urine Culture - Final Urine,Voided Assessment and Plan Assessment: Left sided ureteral calculi with left-sided hydronephrosis status post stent -Urology recommendations appreciated -IV fluids -Pain control Probable urinary tract infection associated with stone -On Rocephin -Initial urine culture did not show any growth -Follow CBC Diabetes mellitus insulin requiring -Continue with insulin pump -Follow blood sugars -Continue outpatient follow-up -Has not with special education paraeducator multiple times -Metformin on hold Morbid obesity with BMI 48.8 -Structured outpatient weight loss Hypothyroidism -Synthroid DVT prophylaxis: Heparin Discussed with: Patient, nursing Anticipated discharge: in AM Anticipated discharge place: home A total of 25 minutes was spent on the care of this complex patient more than 50% of the time was spent in counseling and care coordination.
[2019-05-18 20:25] LABS: Glucose,Whole Blood 71 mg/dL (75-99)
[2019-05-18 20:32] LABS: Glucose,Whole Blood 65 mg/dL (75-99)
[2019-05-18 20:52] LABS: Glucose,Whole Blood 86 mg/dL (75-99)
[2019-05-19 02:06] LABS: Glucose,Whole Blood 126 mg/dL (75-99)
[2019-05-19] MEDS: LEVOTHYROXINE 112 MCG TAB PO SCH (05:49)
[2019-05-19 07:04] LABS: Glucose,Whole Blood 100 mg/dL (75-99)
[2019-05-19 07:24] VITALS: BP 145/72; PULSE 66; RESP 17; TEMP 98.3
[2019-05-19] MEDS: INSULIN PUMP MEAL BOLUS 1 UNIT MISC MISCELLANE SCH (08:12)
[2019-05-19] MEDS: CLOPIDOGREL 75 MG TAB PO SCH (08:12)
[2019-05-19] MEDS: LOSARTAN 50 MG TAB PO SCH (08:12)
[2019-05-19] MEDS: amLODIPine 5 MG TAB PO SCH (08:12)
[2019-05-19] MEDS: METOPROLOL TARTRATE 25 MG TAB PO SCH (08:13)
[2019-05-19] MEDS: HEPARIN SODIUM,PORCINE 5,000 UNIT/ML 1 ML VIAL SQ SCH (08:13)
[2019-05-19] MEDS ORDERED: FAMOTIDINE 20 MG TAB PO SCH (09:00)
--- NOTE | 2019-05-19 09:26 | P.OP ---
Date of Procedure: 05/17/19 Preoperative Diagnosis: Left ureteral calculi Postoperative Diagnosis: same Procedure(s) Performed: Cystoscopy, Left RPG, stent placement Anesthesia: SASKIA Surgeon: Gordo Somers Pathology: none sent Condition: stable Disposition: floor Indications for Procedure: Ms. Martinez is 63 yo female with hx of 4mm left ureteral stone. She presented with elevated WBC and UTI, we discussed with her that we recommend stent placement given her UTI. She agreed to proceed with left ureteral stet placement. I discussed with her the risk including bleeding, infection and injury to the ureter. She understood all the risks and agreed to proceed with surgery Operative Findings: bladder stone Description of Procedure: The patient was brought to the operating, general anesthesia was induced. She was prepped and draped in sterile fashion and placed in dorsal lithotimy position. general anesthesia was induced. a cystoscope fitted with 22 Fr sheath was inserted and cystoscopy showed no suspicous lesions within the bladder , of not there was a stone in the bladder that was removed and sent for analysis. Attention was carried to the left side. The left ureteral orfice was visualized, of note there was a stone stuck at the uvj, a 0.035 motion wire was advanced through the scope and into the renal pelvis. next a 4.8 Fr X 24 cm stent. The stent was advanced over the wire, a stent curl was visualized in the renal pelvis under fluoroscopy and distally using the cystoscope. The bladder was emptied at the end of case. Patient tolerated procedure well and was taken to PACU in stable condition
[2019-05-19 09:31] LABS: HCT 38.4 % (34.0-46.0); HGB 12.5 gm/dL (11.4-16.0); MCH 29.6 pg (25.0-35.0); MCHC 32.6 g/dL (31.0-37.0); Mean Platelet Volume 6.6; Platelet Count 296 k/uL (150-450); RBC 4.22 m/uL (3.80-5.40); WBC 12.3 k/uL (3.8-10.6)
[2019-05-19 09:37] LABS: Calcium 9.8 mg/dL (8.4-10.2); Potassium 3.9 mmol/L (3.5-5.1)
--- NOTE | 2019-05-19 10:22 | P.DS ---
Providers Date of admission: 05/17/19 13:34 Expected date of discharge: 05/19/19 Attending physician: Bridger Goodwin MD Consults: 05/17/19 08:03 Consult Physician Routine Consulting Provider: Wilber Lal Consult Reason/Comments: renal stone, left sided hydro Do you want consulting provider notified?: Yes Primary care physician: Stated None Hospital Course: Discharge Diagnosis: Left sided ureteral stone left sided hydronephrosis UTI, complicated DM2 with hyperglycemia Morbid obesity with BMI 48.8 Hypothyroidism Hospital Course: Patient is a 63-year-old female with a past medical history of insulin dependent diabetes mellitus on pump, hypertension, hypothyroidism, and GERD who initially presented to the emergency department with left flank pain as well as chills. In the emergency department she underwent an extensive evaluation and was ultimately found to have left-sided hydronephrosis with a 4 mm calculus, and urinary tract infection with elevated white blood cell count at 19. Initially she was found to be hyperglycemic and her insulin pump was stopped and she was treated with sliding scale insulin. She is admitted for further monitoring of her urinary tract infection and obstructive renal stone. Urology was consulted and she underwent urethral stent placement on 05/17. She did have significant improvement in her pain. On the morning of 05/18 she continued to have a significantly elevated white blood cell count. She did have one episode of hypoglycemia on 05/18 and she believed that she did not eat enough for how much insulin she gave a dinner. He WBC decreased to 12, initial urine culture showed less than 10,000 urogential caesar. Repeat urine culture was obtained and was pen ding at time of discharge. Discharged on 10 days of cefpodaxamine. She will follow-up with Dr. Martinez and Dr. Somers in 1 week. I will contact her ABX need adjust based on culture results. Patient seen and examined at bedside. Having some tea colored urine, no nausea, no vomiting, no diarrhea, pain is controlled. Having some dysuria. Vital signs reviewed and stable. General: non toxic, no distress, appears at stated age, obese Derm: warm, dry Head: atraumatic, normocephalic, symmetric Eyes: EOMI, no lid lag, anicteric sclera Mouth: no lip lesion, mucus membranes moist Cardiovascular: S1S2 reg, no murmur, positive posterior tibial pulse bilateral, Lungs: CTA bilateral, no rhonchi, no rales , no accessory muscle use Abdominal: soft, nontender to palpation, no guarding, no appreciable organomegaly Ext: no gross muscle atrophy, no edema, no contractures Neuro: CN II-XI grossly intact, no focal neuro deficits Psych: Alert, oriented, appropriate affect A total of 35 minutes of time were spent preparing this complex discharge summary . Patient Condition at Discharge: Stable Plan - Discharge Summary Discharge Rx Participant: Yes New Discharge Prescriptions: New Cefpodoxime Proxetil [Vantin] 200 mg PO Q12HR #20 tab Continue Ranitidine HCl [Zantac] 300 mg PO BID Clopidogrel [Plavix] 75 mg PO DAILY Metoprolol Tartrate [Lopressor] 25 mg PO BID metFORMIN HCL ER [Glucophage Xr] 1,000 mg PO DAILY amLODIPine [Norvasc] 5 mg PO DAILY Losartan Potassium 100 mg PO DAILY Levothyroxine Sodium [Synthroid] 112 mcg PO DAILY Insulin Aspart (For Pump) [NovoLOG (For Pump)] 0.01 unit SQ-PUMP CONTINUOUS Discharge Medication List Clopidogrel [Plavix] 75 mg PO DAILY 01/31/14 [History] Metoprolol Tartrate [Lopressor] 25 mg PO BID 01/31/14 [History] Ranitidine HCl [Zantac] 300 mg PO BID 01/31/14 [History] Insulin Aspart (For Pump) [NovoLOG (For Pump)] 0.01 unit SQ-PUMP CONTINUOUS 05/16/19 [History] Levothyroxine Sodium [Synthroid] 112 mcg PO DAILY 05/16/19 [History] Losartan Potassium 100 mg PO DAILY 05/16/19 [History] amLODIPine [Norvasc] 5 mg PO DAILY 05/16/19 [History] metFORMIN HCL ER [Glucophage Xr] 1,000 mg PO DAILY 05/16/19 [History] Cefpodoxime Proxetil [Vantin] 200 mg PO Q12HR #20 tab 05/19/19 [Rx] Follow up Appointment(s)/Referral(s): Gordo Somers MD [STAFF PHYSICIAN] - 1 Week Ena Martinez MD [STAFF PHYSICIAN] - 1-2 days Patient Instructions/Handouts: *Surgery [facility] - Scopalamine Patch Instructions, Urinary Tract Infection in Women (DC), Hydronephrosis (DC), Ureteral Stones (DC), Urethral Stent Placement (GEN) Activity/Diet/Wound Care/Special Instructions: Activity: as tolerated Diet: Carb consistent Special Instructions: Return if you develop a fever greater than 100.4, chills, shaking, increased confusion
--- NOTE | 2019-05-27 11:02 | CDI ---
Documentation Clarification Form Date: 05/27/19 From: Tejal Arvizu Phone: If you have a question about this query, please contact Fior Fuentes, Hand Shaker at [phone] between 8am and 5pm. Admit Date: 05/17/19 Discharge Date: 05/19/19 Patient Name: Cara Martinez Visit Number: [id number] ATTENTION: The Clinical Documentation Specialists (CDI) and [facility] Coding Staff appreciate your assistance in clarifying documentation. Please respond to the clarification below the line at the bottom and electronically sign. The CDI & [facility] Coding staff will review the response and follow-up if needed. Please note: Queries are made part of the Legal Health Record. If you have any questions, please contact the author of this message via ITS. Dear Dr Jalyn Ochoa, Conflicting documentation has been found in the medical record: Per Dr Goodwin's H&P he documents Type I DM on Insulin pump. Per your 05/17 PN you document Tpe II DM, Insulin requring, using pump. History/Risk Factors: UTI w hydronephrosis and calculus, GRETCHEN, morbid obesity w BMI 48.8, HTN, hypothyroidism Clinical Indicators: POC Glucose- running 65 to 226, Glucose running 117 to 262 Treatment: Insulin switched from pump to subcu Insulin In your opinion, what is the most clinically appropriate Diabetic type ? Type I Type 2 Other explanation of clinical findings Unable to determine (no explanation for clinical findings) Type II diabetes insulin requiring MTDD
== END 2019-05-19 11:43 | disposition home or self-care (01) | DRG 660 ==
LOC: EC 21:10 → 4SSUR 05-17 01:00 → OBSVTOIN 05-17 13:34
PROVIDERS: ADMIT Internal Medicine; ATTEND Internal Medicine
PROC: 0TCB8ZZ Extirpation of Matter from Bladder, Via Natural or Artificial Opening Endoscopic (ICD-10-PCS; 2019-05-17)
PROC: 0T778DZ Dilation of Left Ureter with Intraluminal Device, Via Natural or Artificial Opening Endoscopic (ICD-10-PCS; principal; 2019-05-17 09:50)
DX: N13.6 Pyonephrosis (principal); Z68.42 Body mass index [BMI] 45.0-49.9, adult; N17.9 Acute kidney failure, unspecified; E11.65 Type 2 diabetes mellitus with hyperglycemia; E11.649 Type 2 diabetes mellitus with hypoglycemia without coma; E66.01 Morbid (severe) obesity due to excess calories; N21.0 Calculus in bladder; E03.9 Hypothyroidism, unspecified; I10 Essential (primary) hypertension; K21.9 Gastro-esophageal reflux disease without esophagitis; Z79.4 Long term (current) use of insulin; Z79.02 Long term (current) use of antithrombotics/antiplatelets; Z79.890 Hormone replacement therapy; Z79.899 Other long term (current) drug therapy; Z96.41 Presence of insulin pump (external) (internal); Z87.442 Personal history of urinary calculi; Z90.710 Acquired absence of both cervix and uterus
CPT/HCPCS: 36415; 74018; 74150; 80048; 80053; 81001; 82365; 83036; 83690; 85025; 85027; 87086; 96361; 96374; 96375; 99285

== ENCOUNTER → 2019-06-07 | Day surgery (SDC) | payer MEDICARE ==
[2019-06-03 15:58] VITALS: BMI 48.8
--- NOTE | 2019-06-04 15:44 | P.HPIHPCON ---
History of Present Illness H&P Date: 06/07/19 Chief Complaint: left ureteral stone Ms. Martinez is a 64-year-old female with history of a 4 mm left ureteral stone. She initially presented with a ureteral stone in the UTI, she underwent ureteral stent placement in the OR. She presents today for definitive stone management. Discussed with her surgical options including ureteroscopy and shockwave lithotripsy She agreed to proceed with ureteroscopy. We discussed with her the risks including bleeding infection and injury to the ureter. I also discussed risk of anesthesia. She understood all the risks and agree to proceed with surgery Consent for Procedure: I have explained the operation/procedure to the patient, including the risks, benefits, side effects, alternative therapies (including not receiving the proposed treatment or service), the likelihood of the patient achieving his/her goals, and potential recuperation problems for the procedure/sedation/analgesia, as well as any blood products, if indicated. I also explained to the patient the risks, benefits and side effects of the alternatives, as well as the risks related to not receiving the proposed procedure, care, treatment, or services. 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, kidney stones, recent admission for UTI History of Any Multi-Drug Resistant Organisms: None Reported Past Surgical History: Hysterectomy, Orthopedic Surgery Additional Past Surgical History / Comment(s): arthroscopy knee, cystoscopy w/stent Past Anesthesia/Blood Transfusion Reactions: Postoperative Nausea & Vomiting (PONV) Smoking Status: Never smoker - Past Family History Mother Family Medical History: No Reported History Father Additional Family Medical History / Comment(s): Heart history Medications and Allergies Home Medications Medication Instructions Recorded Confirmed Type Clopidogrel [Plavix] 75 mg PO DAILY 01/31/14 06/03/19 History Metoprolol Tartrate [Lopressor] 25 mg PO BID 01/31/14 06/03/19 History Ranitidine HCl [Zantac] 300 mg PO BID 01/31/14 06/03/19 History Insulin Aspart (For Pump) [NovoLOG 0.01 unit SQ-PUMP CONTINUOUS 05/16/19 06/03/19 History (For Pump)] Levothyroxine Sodium [Synthroid] 112 mcg PO DAILY 05/16/19 06/03/19 History Losartan Potassium 100 mg PO DAILY 05/16/19 06/03/19 History amLODIPine [Norvasc] 5 mg PO DAILY 05/16/19 06/03/19 History metFORMIN HCL ER [Glucophage Xr] 1,000 mg PO DAILY 05/16/19 06/03/19 History Allergies Allergy/AdvReac Type Severity Reaction Status Date / Time No Known Allergies Allergy Verified 06/03/19 15:55 Surgical - Exam - General well developed, well nourished, no distress - Respiratory normal expansion, normal respiratory effort - Abdomen Abdomen: soft, non tender Assessment and Plan Assessment: 64-year-old female with a 4 mm left ureteral stones status post ureteral stent placement. -OR for cystoscopy left retrograde pyelogram, ureteroscopy, holmium laser lithotripsy, stone basketing and stent placement
[~2019-06-07] MED LIST: DEXAMETHASONE SOD PHOSPHATE 10 MG/ML 1 ML VIAL IV ONE; GENTAMICIN 120 MG in SODIUM CHLORIDE 0.9% 100 ML IVPB ONE; HYDROmorphone 0.5 MG/0.5 ML SYRINGE IVP PRN; INSULIN ASPART (NovoLOG) 100 UNIT/ML VIAL SQ ONE; IOHEXOL 350 MG/ML 50 ML in EMPTY BAG 1 BAG IRRIGATION ONE; LACTATED RINGERS 1,000 ML IV SCH; LIDOCAINE 1% 20 ML VIAL (10MG/ML) FOR IV START INTRADERMA ONE; LIDOCAINE 1% 20 ML VIAL (10MG/ML) FOR IV START INTRADERMA PRN; LIDOCAINE 1% INJ 10MG/ML (20 ML MDV) ONE; METOCLOPRAMIDE 5 MG/ML 2 ML VIAL IVP PRN; MIDAZOLAM 2 MG/2 ML VIAL ONE; ONDANSETRON 4 MG/2 ML VIAL IVP ONE; PROPOFOL 10 MG/ML 20 ML VIAL IV ONE; SCOPOLAMINE 1.5MG/72HR PATCH TRANSDERM ONE; SUCCINYLCHOLINE CHLORIDE 100 MG/5 ML SYR IV ONE; ePHEDrine SULFATE/0.9% NACL/PF 50 MG/5 ML SYRINGE IV ONE; fentaNYL (PF) 50 MCG/ML 2 ML AMP ONE
--- NOTE | 2019-06-07 07:35 | XR ---
EXAMINATION TYPE: XR KUB DATE OF EXAM: 06/07/2019 CLINICAL HISTORY: Left-sided nephrolithiasis TECHNIQUE: Single supine view of the abdomen was obtained COMPARISON: CT dated 05/16/2019 and x-ray dated 05/16/2019 FINDINGS: Levoscoliosis of the lumbar spine and extensive multilevel degenerative disc disease is se en. Extensive vascular calcifications are seen of the splenic artery. Monitors colonic fecal stasis. New left-sided ureteral stent has its proximal portion in the expected region of the renal pelvis and distal portion in the expected region of the decompressed urinary bladder. Multiple phleboliths are seen within the pelvis. Lung bases are obscured. The 7 mm calcification over the right paraspinal lum bar region at L4 could relate to phlebolith, heterotopic ossification, or ureteral calcification that is stable from the prior 05/16/2019. IMPRESSION: New left ureteral stent appearing appropriate in course. No sizable calcifications along the course of the stent.
[2019-06-07 08:09] LABS: Glucose,Whole Blood 253 mg/dL (75-99)
[2019-06-07 09:51] VITALS: TEMP 97.8
--- NOTE | 2019-06-07 10:03 | FL ---
EXAMINATION TYPE: FL cystogram DATE OF EXAM: 06/07/2019 COMPARISON: NONE HISTORY: LEFT KINDEY STENT REMOVAL AND REPLACE Left kidney stent removal and replace. 9 sec fl time. [address] Somers. IMPRESSION: As Above.
[2019-06-07 10:08] LABS: Glucose,Whole Blood 212 mg/dL (75-99)
--- NOTE | 2019-06-07 10:15 | P.OP ---
Date of Procedure: 06/07/19 Preoperative Diagnosis: Left ureteral calculi Procedure(s) Performed: Cystoscopy, left retrograde pyelogram, left ureteroscopy, Anesthesia: GETA Indications for Procedure: Ms. Martinez is a 64-year-old female with history of a 4 mm left ureteral stone. She initially presented with a ureteral stone in the UTI, she underwent ureteral stent placement in the OR. She presents today for definitive stone management. Discussed with her surgical options including ureteroscopy and shockwave lithotripsy She agreed to proceed with ureteroscopy. We discussed with her the risks including bleeding infection and injury to the ureter. I also discussed risk of anesthesia. She understood all the risks and agree to proceed with surgery Operative Findings: no ureteral stone identified, significant calcification along the stent Description of Procedure: The patient was brought to the operating room general anesthesia was induced. She was prepped and draped in sterile fashion and placed in a dorsal lithotomy position. Cystoscope fitted with a 22 sheath was inserted per urethra the stents was visualized and grasped and removed, there was significant calcification along the stent. Next next a 0.035 sensor wire was advanced through the stent and into the renal pelvis. Next, a semi rigid ureteroscope was inserted per urethra and advanced up the left ureter, ureteroscopy showed no ureteral stone or injury to the ureter. The ureteroscope was advanced near the UPJ, retrograde pyelogram was performed and showed no filling defects in the kidney. Pullback ureteroscopy showed no injury to the ureter or any residual stones. The ureteroscope was removed with the wire in place. Next a 4.8 Fr x 24cm stent was advanced over the wire. The proximal curl was visualized under fluoroscopy and the distal curl was visualized using the cystoscope. The bladder was emptied at the end of the case. The patient was taken to recovery in stable condition
[2019-06-07 10:57] VITALS: PULSE 82
[2019-06-07 10:58] VITALS: BP 159/70; RESP 18
== END ==
LOC: OR 07:20
PROVIDERS: ATTEND Urology
DX: N28.89 Other specified disorders of kidney and ureter (principal); I10 Essential (primary) hypertension; E11.9 Type 2 diabetes mellitus without complications; Z79.4 Long term (current) use of insulin; Z96.41 Presence of insulin pump (external) (internal); K21.9 Gastro-esophageal reflux disease without esophagitis; E03.9 Hypothyroidism, unspecified; E66.01 Morbid (severe) obesity due to excess calories; Z68.43 Body mass index [BMI] 50.0-59.9, adult; Z86.73 Personal history of transient ischemic attack (TIA), and cerebral infarction without residual deficits; Z87.442 Personal history of urinary calculi; Z90.710 Acquired absence of both cervix and uterus; Z79.02 Long term (current) use of antithrombotics/antiplatelets; Z79.890 Hormone replacement therapy; Z79.899 Other long term (current) drug therapy
CPT/HCPCS: 74420; 74018; 52332; C2625; J2250; J0690; J2405; J2001; J3010; J1580; J0330; J2704; Q9967; 74430

== ENCOUNTER → 2019-09-27 | Outpatient (CLI) | payer MEDICARE ==
--- NOTE | 2019-09-27 12:14 | XR ---
EXAMINATION TYPE: XR chest 2V DATE OF EXAM: 09/27/2019 COMPARISON: CT of 01/31/2014 HISTORY: Cough and shortness of breath for one week TECHNIQUE: Frontal and lateral views of the chest are obtained. FINDINGS: There are low lung planes exaggerating the pulmonary vasculature. Mild superimposed pulmon theo vascular congestion is also suspected. Retrocardiac density likely relates to a moderate hiatal h ernia. No focal consolidation, pleural effusion or pneumothorax. Osseous structures appear intact. Ca rdiomediastinal silhouette is upper limits of normal. Right hemidiaphragm elevation is chronic and re trospectively noted on the x-ray of CT of 01/31/2014. IMPRESSION: 1. Retrocardiac density likely relates to a moderate hiatal hernia. 2. Mild pulmonary vascular congestion. 3. Slight right hemidiaphragm elevation is chronic.
== END | disposition home or self-care (01) ==
LOC: RAD 11:49
PROVIDERS: ATTEND Family Medicine
DX: J98.6 Disorders of diaphragm (principal); R09.89 Other specified symptoms and signs involving the circulatory and respiratory systems
CPT/HCPCS: 71046

== ENCOUNTER 2020-04-26 09:57 | Emergency (ER) | payer MEDICARE ==
[2020-04-26] MEDS ORDERED: HYDROcodone/APAP 5-325MG 1 EACH TAB PO STA (10:30)
--- NOTE | 2020-04-26 11:11 | CT ---
EXAMINATION TYPE: CT abdomen pelvis wo con, CT lumbar spine wo con DATE OF EXAM: 04/26/2020 HISTORY: Flank pain, back pain CT DLP: 2567.4 (accession [id number]), Dose inc. in abd/pel (accession [id number]) mGycm. Automated [employer] sure Control for Dose Reduction was Utilized. TECHNIQUE: CT scan of the abdomen and pelvis and lumbar spine are all performed without oral or IV c ontrast. COMPARISON: CT abdomen and pelvis May 16, 2019 FINDINGS: Within the limitations of a non-contrast study, the following observations are made. LUNG BASES: No significant abnormality is appreciated. LIVER/GB: Liver diffusely low dense consistent with fatty infiltration. Dependent rim dense gallstone s are redemonstrated. No new surrounding inflammatory change. PANCREAS: Some generalized atrophy of the pancreas. Slightly larger low dense report 1 x 2.4 cm lesio n in region of head of pancreas axial image 38, possible pseudocyst. SPLEEN: No significant abnormality is seen. ADRENALS: No significant abnormality is seen. KIDNEYS: Prominent central vascular calcification in both kidneys. Difficult to exclude small central calculi but favor vascular calcifications. No hydronephrosis or obstructing ureteral calculi bilater ally. BOWEL: Stable moderate-sized fixed hiatal hernia seen. Slightly suboptimal evaluation without enteric contrast. Stomach poorly distended and suboptimally evaluated. No suspicious small or large bowel di latation. Normal-appearing appendix in the right pelvis noted. Some distal colonic diverticula. No CT evidence for acute diverticulitis. GENITAL ORGANS: Uterus surgically absent or markedly atrophic. Scattered bilateral pelvic phleboliths . LYMPH NODES: No greater than 1cm abdominal or pelvic lymph nodes are appreciated. OSSEOUS STRUCTURES: Mild to moderate narrowing and spurring in both hip joints redemonstrated. OTHER: Prominent vascular calcification of small branching vessels consistent with long standing [employer] renal disease. Prominent iliac into 2 femoral arterial calcifications bilaterally. Lumbar spine: Persistent 5 lumbar type vertebra. Persistent slight levoconvex scoliosis centered at L3 level. Persi stent mild to moderate disc space narrowing with vacuum disc phenomenon and mild to moderate spurring right L2-L3 level. Persistent fairly severe disc space narrowing with moderate to severe spurring an d endplate sclerosis along with vacuum disc phenomenon L3-L4 level. Persistent mild to moderate disc space narrowing with vacuum disc phenomenon and mild lateral spurring L4-L5 level. Persistent severe disc space narrowing with endplate sclerosis and severe spurring including prominent left lateral spu r L5-S1 level. No acute fracture or dislocation is seen. Slight grade 1 retrolisthesis L3 on L4 redem onstrated. Posterior spur effaces the anterior thecal sac at this level on sagittal and axial images. Axial images at L2-L3 level redemonstrate mild to moderate broad disc bulge effacing anterior thecal sac with mild facet degenerative changes bilaterally and moderate left greater than right bilateral n eural foraminal narrowing inferiorly. Axial images at L3-L4 level show moderate to advanced broad disc bulge with moderate facet degenerati ve changes bilaterally. There is effacement of the anterior and posterior lateral thecal sac. There i s fairly severe bilateral neural foraminal narrowing noted. Axial images at the L4-L5 level show large disc protrusion and moderate facet arthropathy causing mos t prominent spinal canal stenosis on axial image 57. There is mild right and moderate left-sided neur al foraminal narrowing. Axial images at L5-S1 level show moderate to advanced facet arthropathy. There is left paracentral sp ur disc complex. Moderate left-sided neural foraminal narrowing due to marginal spurring noted. IMPRESSION: 1. Multilevel degenerative changes in the lumbar spine greatest at L3-L4 and L4-L5 levels. 2. No suspicious new or acute findings seen to account for patient's symptoms of abdominal and flank pain.
--- NOTE | 2020-04-26 12:01 | XR ---
EXAMINATION TYPE: XR knee 4V LT DATE OF EXAM: 04/26/2020 CLINICAL HISTORY: Pain after fall injury. TECHNIQUE: Three views of the left knee are obtained. Fourth sunrise view. COMPARISON: None. FINDINGS: There is no acute fracture/dislocation evident in left knee. Fairly severe spurring and na rrowing medial tibiofemoral compartment and patellofemoral compartments. Mild to moderate narrowing l ateral tibiofemoral compartment. Patellar articulation satisfactory on sunrise view. Posterior vascul ar calcification is present. IMPRESSION: There is no acute fracture or dislocation in the left knee.
--- NOTE | 2020-04-26 12:08 | ED ---
General Adult HPI - General Source: patient, EMS, RN notes reviewed, old records reviewed Mode of arrival: EMS Limitations: no limitations <Tico Carrasco - Last Filed: 04/26/20 12:48> <Mile Dai - Last Filed: 04/27/20 00:32> - General Chief complaint: Back Pain/Injury Stated complaint: back pain Time Seen by Provider: 04/26/20 10:07 - History of Present Illness Initial comments: 64-year-old female patient presents to ED for evaluation of right paralumbar back pain. Patient reports that over the last month or so it's been hurting her and that sometimes itches walking she feels in her right leg gives out and she falls to the ground. Patient was happened earlier today and she is getting ready to go to her primary care provider's office to address this back pain. Patient also reports that she had kidney stones in the past. Denies any dysuria. Denies any red flag symptoms. Denies any other complaints. Denies hitting her head or neck or being on any blood thinners. Systemic: Pt denies fatigue, fever/chills, rash. Pt denies weakness, night sweats, weight loss. Neuro: Pt denies headache, visual disturbances, syncope or pre-syncope. HEENT: Pt denies ocular discharge or irritation, otalgia, rhinorrhea, pharyngitis or notable lymphadenopathy. Cardiopulmonary: Pt denies chest pain, SOB, heart palpitations, dyspnea on exertion. Abdominal/GI: Pt denies abdominal pain, n/v/d. : Pt denies dysuria, burning w/ urination, frequency/urgency. Denies new onset urinary or bowel incontinence. MSK: Pt denies, loss of strength or function in extremities. Neuro: Pt denies new onset weakness, paresthesias. (Tico Carrasco) - Related Data Home Medications Medication Instructions Recorded Confirmed Clopidogrel [Plavix] 75 mg PO DAILY 01/31/14 04/26/20 Metoprolol Tartrate [Lopressor] 25 mg PO BID 01/31/14 04/26/20 Insulin Aspart (For Pump) [NovoLOG 0.01 unit SQ-PUMP CONTINUOUS 05/16/19 04/26/20 (For Pump)] Levothyroxine Sodium [Synthroid] 112 mcg PO DAILY 05/16/19 04/26/20 Losartan Potassium 100 mg PO DAILY 05/16/19 04/26/20 amLODIPine [Norvasc] 5 mg PO DAILY 05/16/19 04/26/20 metFORMIN HCL ER [Glucophage Xr] 1,000 mg PO DAILY 05/16/19 04/26/20 Atorvastatin [Lipitor] 80 mg PO DAILY 04/26/20 04/26/20 Famotidine [Pepcid] 20 mg PO BID 04/26/20 04/26/20 Previous Rx's Medication Instructions Recorded Cephalexin [Keflex] 500 mg PO Q12HR 10 Days #20 cap 04/26/20 Allergies Allergy/AdvReac Type Severity Reaction Status Date / Time No Known Allergies Allergy Verified 04/26/20 11:20 Review of Systems ROS Other: All systems not noted in ROS Statement are negative. <Tico Carrasco - Last Filed: 04/26/20 12:48> ROS Other: All systems not noted in ROS Statement are negative. <Mile Dai - Last Filed: 04/27/20 00:32> ROS Statement: Those systems with pertinent positive or pertinent negative responses have been documented in the HPI. Past Medical History Past Medical History: Diabetes Mellitus, Hypertension Additional Past Medical History / Comment(s): hypothyroid History of Any Multi-Drug Resistant Organisms: None Reported Past Surgical History: Hysterectomy Past Anesthesia/Blood Transfusion Reactions: Postoperative Nausea & Vomiting (PONV) Past Psychological History: No Psychological Hx Reported Smoking Status: Never smoker Past Alcohol Use History: None Reported Past Drug Use History: None Reported - Past Family History Mother Family Medical History: No Reported History Father Additional Family Medical History / Comment(s): Heart history <Tico Carrasco - Last Filed: 04/26/20 12:48> General Exam Limitations: no limitations <Tico Carrasco - Last Filed: 04/26/20 12:48> - General Exam Comments Initial Comments: Constitutional: NAD, AOX3, Pt has pleasant affect. HEENT: NC/AT, trachea midline, neck supple, no lymphadenopathy. External ears appear normal, without discharge. Mucous membranes moist. Eyes PERRLA, EOM intact. There is no scleral icterus. No pallor noted. Cardiopulmonary: RRR, no murmurs, rubs or gallops, no JVD noted. Lungs CTAB in anterior and posterior sanchez. No peripheral edema. Abdominal exam: Abdomen soft and non-distended. Abdomen non-tender to palpation in all 4 quadrants. Bowel sounds active in LLQ. No hepatosplenomegaly. No ecchymosis Neuro: CN II-XII grossly intact. No nuchal rigidity. No raccon eyes, no brewster sign, no hemotympanum. No cervical spinal tenderness. MSK: No posterior calf tenderness bilaterally, homans sign negative bilaterally. Posterior tibialis and radial pulse +2 bilaterally. Sensation intact in upper and lower extremities. Full active ROM in upper and lower extremities, 5/5 stregnth. os quadriceps muscles 5 out of 5 strength. Straight leg raise is negative. Right paralumbar region is mildly tender to palpation. (Tico Carrasco) Course Vital Signs 04/26/20 04/26/20 09:58 13:35 Temperature 98.2 F 97.6 F Pulse Rate 81 68 Respiratory 18 16 Rate Blood Pressure 181/87 156/85 O2 Sat by Pulse 98 100 Oximetry Medical Decision Making <Tico Carrasco - Last Filed: 04/26/20 12:48> <Mile Dai - Last Filed: 04/27/20 00:32> - Medical Decision Making 64-year-old female patient presents to ED for evaluation of back pain. Physical exam displayed some right paralumbar discomfort however strength and sensation are intact and patient was able to bear weight. CT abdomen and pelvis with CT lumbar displayed degenerative disc disease that is some bulging disks a s well. There was hematuria in the urine. Patient has been having some urinary symptoms dysuria or frequency. She will be discharged with antibiotics as well as urology follow-up. Patient has no current radicular symptoms and due to possible urinary tract infection as well as insulin-dependent diabetes on a pump I will hold steroids at this time. Case discussed with Dr. Dai. (Tico Carrasco) I was available for consultation in the emergency department. The history and physical exam were done by the midlevel provider. I was consulted for this patients care. I reviewed the case with the midlevel provider and based on their presentation of the patient, I agree with the assessment, medical decision making and plan of care as documented. Chart was dictated using [employer] dictation software. Attempts were made to correct any dictation errors however some typographical errors may persist. Patient was seen during a [facility] due to the Covid-19 pandemic. (Mile Dai) - Lab Data Lab Results 04/26/20 Range/Units 11:55 Urine Color Yellow Urine Appearance Cloudy H (Clear) Urine pH 5.5 (5.0-8.0) Ur Specific [place] 1.016 (1.001-1.035) Urine Protein Trace H (Negative) Urine Glucose (UA) Negative (Negative) Urine Ketones Negative (Negative) Urine Blood Large H (Negative) Urine Nitrite Negative (Negative) Urine Bilirubin Negative (Negative) Urine Urobilinogen <2.0 (<2.0) mg/dL Ur Leukocyte Esterase Trace H (Negative) Urine RBC >182 H (0-5) /hpf Urine WBC 12 H (0-5) /hpf Ur Squamous Epith Cells 4 (0-4) /hpf Urine Mucus Rare H (None) /hpf Disposition Is patient prescribed a controlled substance at d/c from ED?: No <Tico Carrasco - Last Filed: 04/26/20 12:48> <Mile Dai - Last Filed: 04/27/20 00:32> Clinical Impression: Back pain, Hematuria, Fall, Protrusion of lumbar intervertebral disc Disposition: HOME SELF-CARE Condition: Stable Instructions (If sedation given, give patient instructions): Acute Low Back Pain (ED) Additional Instructions: Follow-up with primary care provider tomorrow. Follow-up in orthopedic consultation as well as urologist. Take antibiotics as directed. Return to ER if any worsening symptoms. Prescriptions: Cephalexin [Keflex] 500 mg PO Q12HR 10 Days #20 cap Referrals: Ena Martinez MD [Primary Care Provider] - 1-2 days Gordo Somers MD [STAFF PHYSICIAN] - 1-2 days Tahir Mancilla DO [Doctor of Osteopathic Medicine] - 1-2 days
[2020-04-26 12:15] LABS: Appearance,Urine Cloudy (Clear); Bilirubin,Urine Negative (Negative); Blood,Urine Large (Negative); Color,Urine Yellow; Glucose,Urine (UA) Negative (Negative); Ketones,Urine Negative (Negative); Leukocyte Esterase,Urine Trace (Negative); Mucus,Urine Rare /hpf; Nitrite,Urine Negative (Negative); PH, Urine 5.5 (5.0-8.0); Protein,Urine Trace (Negative); RBC,Urine >182 /hpf (0-5); Specific Gravity,Urine 1.016 (1.001-1.035); Squamous Epithelial Cell,Urine 4 /hpf (0-4); Urobilinogen,Urine <2.0 mg/dL (<2.0); WBC,Urine 12 /hpf (0-5)
[2020-04-26] MEDS ORDERED: ACET/COD 300 MG/30 MG STARTER PACK 6 TAB BTL PO STA (13:04)
[2020-04-26] MEDS ORDERED: CEPHALEXIN 500MG STARTER PACK 4 CAP BTL PO STA (13:04)
[2020-04-26] MEDS ORDERED: IBUPROFEN 600 MG STARTER PACK 4 TAB BTL PO STA (13:04)
[2020-04-26 13:36] VITALS: BP 156/85; PULSE 68; RESP 16; TEMP 97.6
== END 2020-04-26 13:36 | disposition home or self-care (01) ==
LOC: EC 09:57
DX: M51.26 Other intervertebral disc displacement, lumbar region (principal); R31.9 Hematuria, unspecified; M51.36 Other intervertebral disc degeneration, lumbar region; M48.061 Spinal stenosis, lumbar region without neurogenic claudication; E11.9 Type 2 diabetes mellitus without complications; I10 Essential (primary) hypertension; E03.9 Hypothyroidism, unspecified; Z79.02 Long term (current) use of antithrombotics/antiplatelets; Z96.41 Presence of insulin pump (external) (internal); Z79.4 Long term (current) use of insulin; Z79.899 Other long term (current) drug therapy; Z79.890 Hormone replacement therapy; W18.39XA Other fall on same level, initial encounter; Y93.01 Activity, walking, marching and hiking
CPT/HCPCS: 72131; 74176; 81001; 87086; 99285

== ENCOUNTER → 2020-11-16 | Outpatient (CLI) | payer MEDICARE ==
--- NOTE | 2020-11-16 10:13 | CT ---
EXAMINATION TYPE: CT abdomen w con DATE OF EXAM: 11/16/2020 COMPARISON: 04/26/2020 HISTORY: Pancreas mass CT DLP: 1888.4 mGycm CONTRAST: CT scan of the abdomen is performed without Oral Contrast and with IV Contrast, patient injected with 80 mL of Isovue 300. FINDINGS: LUNG BASES-: No visible nodule. No infiltrate. Moderate fixed hiatal hernia. LIVER/GB: No calcified gallstones. Hepatic steatosis noted. No space occupying hepatic lesion. Taco iary tree is of normal caliber. PANCREAS: No inflammation. Cystic mass pancreatic head measures 3.6 x 2.9 cm and is essentially unch anged relative to the prior noncontrast study. This likely reflects a pseudocyst. The remainder of th e pancreas is atrophic. SPLEEN: No splenic enlargement. No lesion seen. ADRENALS: No nodule. No thickening. KIDNEYS/BLADDER: No hydronephrosis. No nephrolithiasis. No distinct renal mass. Urinary bladder g rossly unremarkable. BOWEL: Visualized bowel loops are within normal limits. LYMPH NODES: No greater than 1cm abdominal or pelvic lymph nodes are appreciated. AORTA: No significant abnormality. OSSEOUS STRUCTURES: No significant abnormality is seen. OTHER: No significant additional abnormality is seen. IMPRESSION: 1. Essentially stable pseudocyst of the pancreatic head with the remaining portions of the pancreas b eing atrophic. 2. Moderate fixed hiatal hernia. 3. Sliding-type hiatal hernia.
== END | disposition home or self-care (01) ==
LOC: RADCTMAIN 08:31
PROVIDERS: ATTEND Family Medicine
DX: K86.3 Pseudocyst of pancreas (principal); K44.9 Diaphragmatic hernia without obstruction or gangrene
CPT/HCPCS: 82565; 84520; 74160; 36415; Q9967

== ENCOUNTER 2022-07-26 21:50 | Emergency (ER) | payer MEDICARE ==
[2022-07-26 22:04] VITALS: RESP 15; TEMP 98.6
[2022-07-26 23:47] LABS: Basophils % (A) 1 %; Eosinophils # (A) 0.2 k/uL (0-0.7); Eosinophils % (A) 2 %; HCT 36.4 % (34.0-46.0); HGB 11.6 gm/dL (11.4-16.0); Hypochromasia Marked; Lymphocytes # (A) 1.7 k/uL (1.0-4.8); Lymphocytes % (A) 20 %; MCHC 31.9 g/dL (31.0-37.0); MCV 90.8 fL (80.0-100.0); Mean Platelet Volume 7.9; Monocytes # (A) 0.7 k/uL (0-1.0); Monocytes % (A) 8 %; Neutrophils # (A) 5.8 k/uL (1.3-7.7); Neutrophils % (A) 68 %; Platelet Count 264 k/uL (150-450); RBC 4.01 m/uL (3.80-5.40); RDW 13.6 % (11.5-15.5); WBC 8.6 k/uL (3.8-10.6)
[2022-07-27 00:01] LABS: Albumin 3.6 g/dL (3.5-5.0); Calcium 8.8 mg/dL (8.4-10.2); Potassium 4.7 mmol/L (3.5-5.1); Total Bilirubin 0.5 mg/dL (0.2-1.3); Total Protein 7.2 g/dL (6.3-8.2)
[2022-07-27 00:26] LABS: C Reactive Protein 8.5 mg/dL (<1.0)
[2022-07-27] MEDS ORDERED: INSULIN REGULAR 100 UNIT/ML VIAL (IV) SQ STA (00:40)
[2022-07-27 00:58] LABS: Erythrocyte Sedimentation Rate 70 mm/hr (0-20)
[2022-07-27 01:03] VITALS: BP 129/74; PULSE 81
--- NOTE | 2022-07-27 01:19 | ED ---
General Adult HPI - General Chief complaint: Recheck/Abnormal Lab/Rx Stated complaint: Open wound Time Seen by Provider: 07/26/22 21:55 Source: EMS Mode of arrival: EMS Limitations: no limitations - History of Present Illness Initial comments: This patient is a 67-year-old woman who states that she had a lumbar laminectomy performed at [facility] by Dr. Estrella on July 01. She states she had gone back for postoperative visit on July 11 and rhianna were removed at that time. Patient believes there might have been a tiny opening at one end of the incision, and she had been placed on a course of Keflex which was stopped approximate 5 days ago. Patient stated that on this Keflex been restarted today, as she was just not feeling well, and it felt like there was some pressure buildup at the site. Later this evening, she felt like there was a gush and that there was fluid. A nurse and checked and did find that there appeared to be opening of the wound then drainage. Patient has not had fever or chills. She is not having zeinab back pain. There is no headache, neck stiffness. She is not having any neurologic symptoms. No change in latter or bowel function. No saddle anesthesia. No leg pain or weakness. Onset/Timin -: days(s) Location: back Radiation: non-radiation Severity scale (1-10): 0 Improves with: none Worsens with: none Associated Symptoms: denies other symptoms Treatments Prior to Arrival: none - Related Data Home Medications Medication Instructions Recorded Confirmed Clopidogrel [Plavix] 75 mg PO DAILY 01/31/14 04/26/20 Metoprolol Tartrate [Lopressor] 25 mg PO BID 01/31/14 04/26/20 Insulin Aspart (For Pump) [NovoLOG 0.01 unit SQ-PUMP CONTINUOUS 05/16/19 04/26/20 (For Pump)] Levothyroxine Sodium [Synthroid] 112 mcg PO DAILY 05/16/19 04/26/20 Losartan Potassium 100 mg PO DAILY 05/16/19 04/26/20 amLODIPine [Norvasc] 5 mg PO DAILY 05/16/19 04/26/20 metFORMIN HCL ER [Glucophage XR] 1,000 mg PO DAILY 05/16/19 04/26/20 Atorvastatin [Lipitor] 80 mg PO DAILY 04/26/20 04/26/20 Famotidine [Pepcid] 20 mg PO BID 04/26/20 04/26/20 Previous Rx's Medication Instructions Recorded Cephalexin [Keflex] 500 mg PO Q12HR 10 Days #20 cap 04/26/20 Allergies Allergy/AdvReac Type Severity Reaction Status Date / Time No Known Allergies Allergy Verified 07/26/22 22:00 Review of Systems ROS Statement: Those systems with pertinent positive or pertinent negative responses have been documented in the HPI. ROS Other: All systems not noted in ROS Statement are negative. Constitutional: Denies: fever, chills Respiratory: Denies: cough, dyspnea Cardiovascular: Denies: chest pain, palpitations, syncope Gastrointestinal: Denies: abdominal pain Genitourinary: Denies: dysuria, hematuria Musculoskeletal: Reports: as per HPI. Denies: back pain Skin: Denies: rash Neurological: Denies: headache, weakness, numbness, paresthesias Past Medical History Past Medical History: Diabetes Mellitus, Hypertension Additional Past Medical History / Comment(s): hypothyroid History of Any Multi-Drug Resistant Organisms: None Reported Past Surgical History: Hysterectomy Past Anesthesia/Blood Transfusion Reactions: Postoperative Nausea & Vomiting (PONV) Past Psychological History: No Psychological Hx Reported Smoking Status: Never smoker Past Alcohol Use History: None Reported Past Drug Use History: None Reported - Past Family History Mother Family Medical History: No Reported History Father Additional Family Medical History / Comment(s): Heart history General Exam Limitations: no limitations General appearance: alert, in no apparent distress Head exam: Present: atraumatic, normocephalic Eye exam: Present: normal appearance. Absent: scleral icterus, conjunctival injection Neck exam: Present: normal inspection, full ROM. Absent: meningismus Respiratory exam: Present: normal lung sounds bilaterally. Absent: respiratory distress, wheezes, rales, rhonchi, stridor Cardiovascular Exam: Present: regular rate, normal rhythm, normal heart sounds. Absent: systolic murmur, diastolic murmur, rubs, gallop GI/Abdominal exam: Present: soft. Absent: distended, tenderness, guarding, rebound, rigid, mass Extremities exam: Present: normal inspection, normal capillary refill. Absent: pedal edema, calf tenderness Back exam: Present: normal inspection, other (The patient has had dehiscence of the lower pole of her surgical incision. I am not able to see to the base of the incision. There is no abnormal erythema or warmth. There is some serosanguineous discharge which is not cloudy or purulent. No odor.). Absent: CVA tenderness (R), CVA tenderness (L) Neurological exam: Present: alert. Absent: oriented X3, motor sensory deficit Skin exam: Present: warm, dry, normal color. Absent: rash Course Vital Signs 07/26/22 07/27/22 22:00 01:02 Temperature 98.6 F Pulse Rate 78 81 Respiratory 15 15 Rate Blood Pressure 141/86 129/74 O2 Sat by Pulse 99 97 Oximetry Medical Decision Making - Medical Decision Making Patient is 67-year-old woman here for wound dehiscence of her lumbar laminectomy incision. I'm not able to see the base of the wound. There is no purulent drainage or evidence of infection. I did send culture. The patient is currently taking Keflex as coverage. The patient's labs are not suggestive of infection. On the incision is covered with wet to dry followed by ABD pad. Will have patient follow with her surgeon to see if a plastic surgery consult is needed or for further wound management. Discussed signs and symptoms of infection that they need to watch for but patient is at care home facility, and will be watched there. Culture is pending. Discussed appropriate further care and follow-up as well as return parameters. - Lab Data Result diagrams: 07/26/22 23:34 07/26/22 23:34 Lab Results 07/26/22 07/26/22 Range/Units 23:34 23:34 WBC 8.6 (3.8-10.6) k/uL RBC 4.01 (3.80-5.40) m/uL Hgb 11.6 (11.4-16.0) gm/dL Hct 36.4 (34.0-46.0) % MCV 90.8 (80.0-100.0) fL MCH 29.0 (25.0-35.0) pg MCHC 31.9 (31.0-37.0) g/dL RDW 13.6 (11.5-15.5) % Plt Count 264 (150-450) k/uL MPV 7.9 Neutrophils % 68 % Lymphocytes % 20 % Monocytes % 8 % Eosinophils % 2 % Basophils % 1 % Neutrophils # 5.8 (1.3-7.7) k/uL Lymphocytes # 1.7 (1.0-4.8) k/uL Monocytes # 0.7 (0-1.0) k/uL Eosinophils # 0.2 (0-0.7) k/uL Basophils # 0.0 (0-0.2) k/uL Hypochromasia Marked ESR 70 H (0-20) mm/hr Sodium 137 (137-145) mmol/L Potassium 4.7 (3.5-5.1) mmol/L Chloride 101 (98-107) mmol/L Carbon Dioxide 28 (22-30) mmol/L Anion Gap 8 mmol/L BUN 15 (7-17) mg/dL Creatinine 1.18 H (0.52-1.04) mg/dL Est GFR (CKD-EPI)AfAm 55 (>60 ml/min/1.73 sqM) Est GFR (CKD-EPI)NonAf 47 (>60 ml/min/1.73 sqM) Glucose 252 H (74-99) mg/dL Calcium 8.8 (8.4-10.2) mg/dL Total Bilirubin 0.5 (0.2-1.3) mg/dL AST 22 (14-36) U/L ALT 14 (4-34) U/L Alkaline Phosphatase 97 (38-126) U/L C-Reactive Protein 8.5 H (<1.0) mg/dL Total Protein 7.2 (6.3-8.2) g/dL Albumin 3.6 (3.5-5.0) g/dL Disposition Clinical Impression: Wound dehiscence Disposition: HOME SELF-CARE Condition: Good Instructions (If sedation given, give patient instructions): Chronic Wound Care (ED) Additional Instructions: As we discussed, speak with your physician regarding the wound dehiscence and appropriate follow-up with him. If there is any problem return here. If any new symptoms develop return here. Is patient prescribed a controlled substance at d/c from ED?: No Referrals: Teresa Fields MD [Primary Care Provider] - 1-2 days
== END 2022-07-27 02:04 | disposition home or self-care (01) ==
LOC: EC 21:50
DX: T81.30XA Disruption of wound, unspecified, initial encounter (principal); E11.9 Type 2 diabetes mellitus without complications; I10 Essential (primary) hypertension; E03.9 Hypothyroidism, unspecified; Z79.4 Long term (current) use of insulin; Z79.890 Hormone replacement therapy; Z79.84 Long term (current) use of oral hypoglycemic drugs; Z79.899 Other long term (current) drug therapy
CPT/HCPCS: 36415; 80053; 85025; 85652; 86140; 87070; 87205; 99284

== ENCOUNTER 2022-10-11 09:12 | Inpatient (IN) | payer MEDICARE ==
[2022-10-11] MEDS ORDERED: ALBUTEROL NEBULIZED 2.5 MG/3 ML INHALATION STA (09:40)
[2022-10-11] MEDS ORDERED: methylPREDNISolone SOD SUCCI 125 MG/2 ML VIAL IV STA (09:40)
[2022-10-11] MEDS ORDERED: IPRATROPIUM 0.5 MG/2.5 ML NEBU INHALATION STA (09:40)
--- NOTE | 2022-10-11 09:45 | ED ---
General Adult HPI - General Chief complaint: Shortness of Breath Stated complaint: SOB Time Seen by Provider: 10/11/22 09:25 Source: patient, EMS, RN notes reviewed, old records reviewed Mode of arrival: EMS Limitations: no limitations - History of Present Illness Initial comments: This is a 67-year-old female who presents emergency Department complaining of shortness of breath. Patient states she had surgery on her back for a laminectomy done at [facility] in June and had a follow-up surgery on July 31. Patient states she's been having some issues with difficulty breathing but over the last few days she's had a much harder time breathing and is getting progressively worse. Patient was supposed to see her teacher associate today but stated she was so short of breath she couldn't make it. Patient denies any chest pain. Patient has any fever chills. Patient denies any significant cough. Patient denies any swelling to the legs or calf tenderness. Patient denies any abdominal pain patient denies nausea vomiting diarrhea. Patient denies any underlying previous lung issue such as COPD or asthma. - Related Data Home Medications Medication Instructions Recorded Confirmed Metoprolol Tartrate [Lopressor] 25 mg PO BID 01/31/14 10/11/22 Insulin Aspart (For Pump) [NovoLOG 0.01 unit SQ-PUMP CONTINUOUS 05/16/19 10/11/22 (For Pump)] Levothyroxine Sodium [Synthroid] 112 mcg PO DAILY 05/16/19 10/11/22 Losartan Potassium 100 mg PO DAILY 05/16/19 10/11/22 amLODIPine [Norvasc] 5 mg PO DAILY 05/16/19 10/11/22 Famotidine [Pepcid] 20 mg PO BID 04/26/20 10/11/22 Collagenase [Santyl Ointment] 1 applic TOPICAL DAILY 10/11/22 10/11/22 Potassium Citrate [Potassium 10 meq PO TID 10/11/22 10/11/22 Citrate ER] Rosuvastatin [Crestor] 10 mg PO DAILY 10/11/22 10/11/22 Allergies Allergy/AdvReac Type Severity Reaction Status Date / Time No Known Allergies Allergy Verified 10/11/22 11:23 Review of Systems ROS Statement: Those systems with pertinent positive or pertinent negative responses have been documented in the HPI. ROS Other: All systems not noted in ROS Statement are negative. Past Medical History Past Medical History: Diabetes Mellitus, Hypertension Additional Past Medical History / Comment(s): hypothyroid History of Any Multi-Drug Resistant Organisms: None Reported Past Surgical History: Back Surgery, Hysterectomy Past Anesthesia/Blood Transfusion Reactions: Postoperative Nausea & Vomiting (PONV) Past Psychological History: No Psychological Hx Reported Smoking Status: Never smoker Past Alcohol Use History: None Reported Past Drug Use History: None Reported - Past Family History Mother Family Medical History: No Reported History Father Additional Family Medical History / Comment(s): Heart history General Exam - General Exam Comments Initial Comments: GENERAL: Patient is well-developed and well-nourished. Patient is nontoxic and well- hydrated and is in mild distress. ENT: Neck is soft and supple. No significant lymphadenopathy is noted. Oropharynx is clear. Moist mucous membranes. Neck has full range of motion without eliciting any pain. EYES: The sclera were anicteric and conjunctiva were pink and moist. Extraocular movements were intact and pupils were equal round and reactive to light. Eyelids were unremarkable. PULMONARY: Decreased air movement with expiratory wheezing and some crackles in the right base CARDIOVASCULAR: There is a regular rate and rhythm without any murmurs gallops or rubs. ABDOMEN: Soft and nontender with normal bowel sounds. SKIN: Skin is clear with no lesions or rashes and otherwise unremarkable. NEUROLOGIC: Patient is alert and oriented x3. Cranial nerves II through XII are grossly intact. Motor and sensory are also intact. Normal speech, volume and content. Symmetrical smile. MUSCULOSKELETAL: Normal extremities with adequate strength and full range of motion. No lower extremity swelling or edema. No calf tenderness. LYMPHATICS: No significant lymphadenopathy is noted PSYCHIATRIC: Normal psychiatric evaluation. Limitations: no limitations Course Vital Signs 10/11/22 10/11/22 10/11/22 09:16 09:21 09:22 Temperature 97.7 F Pulse Rate 113 H Respiratory 26 H 24 24 Rate Blood Pressure 134/107 O2 Sat by Pulse 90 L 99 Oximetry 10/11/22 10/11/22 10/11/22 09:50 10:48 11:00 Temperature Pulse Rate 112 H 99 Respiratory Rate Blood Pressure 147/62 110/46 O2 Sat by Pulse 95 100 Oximetry 10/11/22 10/11/22 11:01 11:30 Temperature Pulse Rate 96 105 H Respiratory 20 Rate Blood Pressure 140/73 O2 Sat by Pulse 100 Oximetry Medical Decision Making - Medical Decision Making EKG was interpreted by myself shows sinus rhythm at 129 bpm UT interval 250 QRS is under 4 QT interval 33 QTC is 379. Patient's EKG shows no ST segment elevation or depression. Was pt. sent in by a medical professional or institution (JOSHUA Barrera, [employer]OLLEY WORKER, urgent care, hospital, or custodial...) When possible be specific @ -No Did you speak to anyone other than the patient for history (EMS, parent, family, police, friend...)? What history was obtained from this source @ -No Did you review nursing and triage notes (agree or disagree)? Why? @ -I reviewed and agree with nursing and triage notes Were old charts reviewed (outside hosp., previous admission, EMS record, old EKG, old radiological studies, urgent care reports/EKG's, custodial records)? Report findings @ -I reviewed Prior radiologic studies and prior laboratories Differential Diagnosis (chest pain, altered mental status, abdominal pain women, abdominal pain men, vaginal bleeding, weakness, fever, dyspnea, syncope, headache, dizziness, GI bleed, back pain, seizure, CVA, palpatations, mental health, musculoskeletal)? @ -Differential Dyspnea: Coronary syndrome, arrhythmia, tamponade, asthma, COPD, pulmonary embolism, pneu monia, pneumothorax, pulmonary effusion, anaphylaxis, diabetic ketoacidosis, flailed chest, pulmonary contusion, diaphragmatic rupture, anemia, neuromuscular, this is not meant to be an all-inclusive list. EKG interpreted by me (3pts min.). @ -As above X-rays interpreted by me (1pt min.). @ -Chest x-ray is interpreted by myself shows some bilateral pleural effusions with pulmonary edema. CT interpreted by me (1pt min.). @ -Computed tomography scan was interpreted by myself shows acute pulmonary edema. Radiology said he could not rule out a possible PE. U/S interpreted by me (1pt. min.). @ -None done What testing was considered but not performed or refused? (CT, X-rays, U/S, labs)? Why? @ -None What meds were considered but not given or refused? Why? @ -None Did you discuss the management of the patient with other professionals (professionals i.e. JOSHUA Brarera, TROLLEY WORKER, lab, RT, psych nurse, geriatric social worker, criminal lawyer, teacher, principal gifts officer, patient case coordinator)? Give summary @ -I spoke with Dr. Fields and he agreed to admit the patient I spoke with the radiologist about possible PE. Was smoking cessation discussed for >3mins.? @ -No Was critical care preformed (if so, how long)? @ -35 minutes Were there social determinants of health that impacted care today? How? (Homelessness, low income, unemployed, alcoholism, drug addiction, transpo rtation, low edu. Level, literacy, decrease access to med. care, penitentiary, rehab)? @ -No Was there de-escalation of care discussed even if they declined (Discuss DNR or withdrawal of care, Hospice)? DNR status @ -No What co-morbidities impacted this encounter? (DM, HTN, Smoking, COPD, CAD, Cancer, CVA, ARF, Chemo, Hep., AIDS, mental health diagnosis, sleep apnea, morbid obesity)? @ -None Was patient admitted / discharged? Hospital course, mention meds given and route, prescriptions, significant lab abnormalities, going to OR and other pertinent info. @ -Patient had elevated d-dimer so I did a CT of the chest showed pulmonary edema and could not rule out pulmonary embolism. I spoke with Dr. Fields and he agreed to admit the patient admitted the patient started on Lasix and started the patient on heparin as well Undiagnosed new problem with uncertain prognosis? @ -No Drug Therapy requiring intensive monitoring for toxicity (Heparin, Nitro, Insulin, Cardizem)? @ -No Were any procedures done? @ -No Diagnosis/symptom? @ -Pulmonary edema Acute, or Chronic, or Acute on Chronic? @ -Acute Uncomplicated (without systemic symptoms) or Complicated (systemic symptoms)? @ -Complicated Side effects of treatment? @ -No Exacerbation, Progression, or Severe Exacerbation? @ -No Poses a threat to life or bodily function? How? (Chest pain, [place], [place], pneumonia, PE, COPD, DKA, ARF, appy, cholecystitis, CVA, Diverticulitis, Homicidal, Suicidal, threat to staff... and all critical care pts) @ -Yes pulmonary edema could lead hypoxia and end organ dysfunction Diagnosis/symptom? @ -PE Acute, or Chronic, or Acute on Chronic? @ -Acute Uncomplicated (without systemic symptoms) or Complicated (systemic symptoms)? @ -Complicated Side effects of treatment? @ -none Exacerbation, Progression, or Severe Exacerbation] @ -no Poses a threat to life or bodily function? @ -Pulmonary was and could lead to significant hypoxia and again end organ dysfunction - Lab Data Result diagrams: 10/11/22 09:46 10/11/22 09:46 Lab Results 10/11/22 10/11/22 10/11/22 Range/Units 09:46 09:46 09:46 WBC 9.8 (3.8-10.6) k/uL RBC 3.61 L (3.80-5.40) m/uL Hgb 9.5 L (11.4-16.0) gm/dL Hct 31.5 L (34.0-46.0) % MCV 87.3 (80.0-100.0) fL MCH 26.4 (25.0-35.0) pg MCHC 30.2 L (31.0-37.0) g/dL RDW 15.2 (11.5-15.5) % Plt Count 312 (150-450) k/uL MPV 8.2 Neutrophils % 66 % Lymphocytes % 27 % Monocytes % 3 % Eosinophils % 3 % Basophils % 0 % Neutrophils # 6.5 (1.3-7.7) k/uL Lymphocytes # 2.7 (1.0-4.8) k/uL Monocytes # 0.3 (0-1.0) k/uL Eosinophils # 0.3 (0-0.7) k/uL Basophils # 0.0 (0-0.2) k/uL Hypochromasia Marked PT 10.1 (9.0-12.0) sec INR 0.9 (<1.2) APTT 19.9 L (22.0-30.0) sec D-Dimer 3.30 H (<0.60) mg/L FEU Sodium 138 (137-145) mmol/L Potassium 4.8 (3.5-5.1) mmol/L Chloride 98 (98-107) mmol/L Carbon Dioxide 34 H (22-30) mmol/L Anion Gap 6 mmol/L BUN 19 H (7-17) mg/dL Creatinine 0.70 (0.52-1.04) mg/dL Est GFR (CKD-EPI)AfAm >90 (>60 ml/min/1.73 sqM) Est GFR (CKD-EPI)NonAf 89 (>60 ml/min/1.73 sqM) Glucose 290 H (74-99) mg/dL Lactic Ac Sepsis Rflx Plasma Lactic Acid Kilo (0.7-2.0) mmol/L Calcium 9.0 (8.4-10.2) mg/dL Magnesium 1.4 L (1.6-2.3) mg/dL Total Bilirubin 0.7 (0.2-1.3) mg/dL AST 28 (14-36) U/L ALT 15 (4-34) U/L Alkaline Phosphatase 77 (38-126) U/L Troponin I (0.000-0.034) ng/mL NT-Pro-B Natriuret Pep pg/mL Total Protein 7.7 (6.3-8.2) g/dL Albumin 3.7 (3.5-5.0) g/dL 10/11/22 10/11/22 10/11/22 Range/Units 09:46 09:46 09:46 WBC (3.8-10.6) k/uL RBC (3.80-5.40) m/uL Hgb (11.4-16.0) gm/dL Hct (34.0-46.0) % MCV (80.0-100.0) fL MCH (25.0-35.0) pg MCHC (31.0-37.0) g/dL RDW (11.5-15.5) % Plt Count (150-450) k/uL MPV Neutrophils % % Lymphocytes % % Monocytes % % Eosinophils % % Basophils % % Neutrophils # (1.3-7.7) k/uL Lymphocytes # (1.0-4.8) k/uL Monocytes # (0-1.0) k/uL Eosinophils # (0-0.7) k/uL Basophils # (0-0.2) k/uL Hypochromasia PT (9.0-12.0) sec INR (<1.2) APTT (22.0-30.0) sec D-Dimer (<0.60) mg/L FEU Sodium (137-145) mmol/L Potassium (3.5-5.1) mmol/L Chloride (98-107) mmol/L Carbon Dioxide (22-30) mmol/L Anion Gap mmol/L BUN (7-17) mg/dL Creatinine (0.52-1.04) mg/dL Est GFR (CKD-EPI)AfAm (>60 ml/min/1.73 sqM) Est GFR (CKD-EPI)NonAf (>60 ml/min/1.73 sqM) Glucose (74-99) mg/dL Lactic Ac Sepsis Rflx Plasma Lactic Acid Kilo 2.1 H* (0.7-2.0) mmol/L Calcium (8.4-10.2) mg/dL Magnesium (1.6-2.3) mg/dL Total Bilirubin (0.2-1.3) mg/dL AST (14-36) U/L ALT (4-34) U/L Alkaline Phosphatase (38-126) U/L Troponin I 0.012 (0.000-0.034) ng/mL NT-Pro-B Natriuret Pep 2110 pg/mL Total Protein (6.3-8.2) g/dL Albumin (3.5-5.0) g/dL 10/11/22 Range/Units 10:13 WBC (3.8-10.6) k/uL RBC (3.80-5.40) m/uL Hgb (11.4-16.0) gm/dL Hct (34.0-46.0) % MCV (80.0-100.0) fL MCH (25.0-35.0) pg MCHC (31.0-37.0) g/dL RDW (11.5-15.5) % Plt Count (150-450) k/uL MPV Neutrophils % % Lymphocytes % % Monocytes % % Eosinophils % % Basophils % % Neutrophils # (1.3-7.7) k/uL Lymphocytes # (1.0-4.8) k/uL Monocytes # (0-1.0) k/uL Eosinophils # (0-0.7) k/uL Basophils # (0-0.2) k/uL Hypochromasia PT (9.0-12.0) sec INR (<1.2) APTT (22.0-30.0) sec D-Dimer (<0.60) mg/L FEU Sodium (137-145) mmol/L Potassium (3.5-5.1) mmol/L Chloride (98-107) mmol/L Carbon Dioxide (22-30) mmol/L Anion Gap mmol/L BUN (7-17) mg/dL Creatinine (0.52-1.04) mg/dL Est GFR (CKD-EPI)AfAm (>60 ml/min/1.73 sqM) Est GFR (CKD-EPI)NonAf (>60 ml/min/1.73 sqM) Glucose (74-99) mg/dL Lactic Ac Sepsis Rflx Y Plasma Lactic Acid Kilo (0.7-2.0) mmol/L Calcium (8.4-10.2) mg/dL Magnesium (1.6-2.3) mg/dL Total Bilirubin (0.2-1.3) mg/dL AST (14-36) U/L ALT (4-34) U/L Alkaline Phosphatase (38-126) U/L Troponin I (0.000-0.034) ng/mL NT-Pro-B Natriuret Pep pg/mL Total Protein (6.3-8.2) g/dL Albumin (3.5-5.0) g/dL Critical Care Time Critical Care Time: Yes Total Critical Care Time: 35 Disposition Clinical Impression: Pulmonary edema, Pulmonary embolism Disposition: ADMITTED IP TO THIS HOSP Referrals: Teresa Fields MD [Primary Care Provider] - 1-2 days Time of Disposition: 12:19
[2022-10-11] MEDS ORDERED: ONDANSETRON 4 MG/2 ML VIAL IVP STA (09:51)
[2022-10-11 09:56] LABS: Basophils % (A) 0 %; Eosinophils # (A) 0.3 k/uL (0-0.7); Eosinophils % (A) 3 %; HCT 31.5 % (34.0-46.0); HGB 9.5 gm/dL (11.4-16.0); Hypochromasia Marked; Lymphocytes # (A) 2.7 k/uL (1.0-4.8); Lymphocytes % (A) 27 %; MCH 26.4 pg (25.0-35.0); MCHC 30.2 g/dL (31.0-37.0); MCV 87.3 fL (80.0-100.0); Mean Platelet Volume 8.2; Monocytes # (A) 0.3 k/uL (0-1.0); Monocytes % (A) 3 %; Neutrophils # (A) 6.5 k/uL (1.3-7.7); Neutrophils % (A) 66 %; Platelet Count 312 k/uL (150-450); RBC 3.61 m/uL (3.80-5.40); RDW 15.2 % (11.5-15.5); WBC 9.8 k/uL (3.8-10.6)
[2022-10-11 10:07] LABS: ALT 15 U/L (4-34); AST 28 U/L (14-36); African American GFR (CKD) >90 (>60 ml/min/1.73 sqM); Albumin 3.7 g/dL (3.5-5.0); Alkaline Phosphatase 77 U/L (38-126); Anion Gap 6 mmol/L; Blood Urea Nitrogen 19 mg/dL (7-17); Carbon Dioxide 34 mmol/L (22-30); Chloride 98 mmol/L (98-107); Glucose 290 mg/dL (74-99); Magnesium 1.4 mg/dL (1.6-2.3); Non-African American GFR(CKD) 89 (>60 ml/min/1.73 sqM); Sodium 138 mmol/L (137-145); Total Bilirubin 0.7 mg/dL (0.2-1.3); Total Protein 7.7 g/dL (6.3-8.2)
[2022-10-11 10:12] LABS: Potassium 4.8 mmol/L (3.5-5.1)
--- NOTE | 2022-10-11 10:29 | XR ---
EXAMINATION TYPE: XR chest 2V DATE OF EXAM: 10/11/2022 10:24 AM COMPARISON: Chest radiographs from 09/27/2019 TECHNIQUE: XR chest 2V Frontal and lateral views of the chest. CLINICAL INDICATION:Female, 67 years old with history of difficulty breathing; FINDINGS: Lungs/Pleura: No evidence of focal consolidation or pneumothorax. Blunting of the costophrenic angles is present. Pulmonary vascularity: Pulmonary vascular congestion. Heart/mediastinum: Cardiomediastinal silhouette is enlarged and stable. Musculoskeletal: Multiple level degenerative disc disease changes seen throughout the spine. No acute osseous abnormality. IMPRESSION: Cardiomegaly, pulmonary vascular congestion and small bilateral pleural effusions. Correlate with BNP for congestive heart failure.
[2022-10-11 10:30] LABS: INR 0.9 (<1.2); Prothrombin Time 10.1 sec (9.0-12.0)
[2022-10-11 10:38] LABS: Partial Thromboplastin Time 19.9 sec (22.0-30.0)
--- NOTE | 2022-10-11 12:06 | CT ---
EXAMINATION TYPE: CT chest angio for PE DATE OF EXAM: 10/11/2022 COMPARISON: Radiograph 10/11/2022 HISTORY: 67-year-old female SOB, elevated d dimer TECHNIQUE: Contiguous axial scanning of the chest performed with IV Contrast, patient injected with 1 00 mL of Isovue 370. Coronal/sagittal MIP reconstructions performed. CT DLP: 684.8 mGycm Automated exposure control for dose reduction was used. FINDINGS: Heart is borderline to mildly enlarged without pericardial effusion. No flattening of the interventri cular septum or reflux of contrast into the hepatic veins. LAD coronary artery calcifications are pre sent. There is limitation due to combination of breathing motion and large patient body habitus. Aorta appears normal caliber. There appears to be a nondominant left vertebral artery that has a dire ct takeoff from the aortic arch. While there is satisfactory opacification of the pulmonary artery system, there is limitation in asse ssment of lobar, segmental, and more distal arterial branches due to the degree of motion and noise a rtifact. Unable to exclude basilar segmental branch emboli to the right lower lobe, refer to axial im ages 63-66. No zeinab thoracic lymphadenopathy identified. There is some flattening of the trachea that may reflect some underlying tracheomalacia, refer to axi al image 22. There are small bilateral pleural effusions with adjacent atelectasis. Septal lines are present diffu sely. Groundglass changes are developing in various areas. Moderate size hiatal hernia involving a third of the stomach in the lower chest. Otherwise, visualize d upper abdomen shows fatty infiltration of the liver. At least moderate degenerative disc disease mid to lower thoracic spine. Facet arthropathy. IMPRESSION: 1. VERY LIMITED EXAM DUE TO COMBINATION OF BREATHING MOTION AND NOISE FROM PATIENT BODY HABITUS. 2. UNABLE TO EXCLUDE SEGMENTAL BRANCH PULMONARY EMBOLI TO THE BASILAR RIGHT LOWER LOBE. FINDINGS CALL ED TO DR. RANKIN IN THE ER AT 12:00 PM. 3. POSSIBLE TRACHEOMALACIA GIVEN DYNAMIC FLATTENING OF THE TRACHEA ON AXIAL IMAGE 22. 4. CHF WITH DEVELOPING INTERSTITIAL PULMONARY EDEMA. SMALL BILATERAL PLEURAL EFFUSIONS WITH ADJACENT ATELECTASIS. 5. MODERATE-SIZED HIATAL HERNIA AND HEPATIC STEATOSIS.
[2022-10-11] MEDS ORDERED: FUROSEMIDE 10 MG/ML 4 ML VIAL IV STA (12:20)
[2022-10-11] MEDS ORDERED: HEPARIN SODIUM 1,000 UN/ML (10ML VL) IV ONE (12:28)
[2022-10-11] MEDS ORDERED: FUROSEMIDE 10 MG/ML 4 ML VIAL IV SCH (13:00)
[2022-10-11] MEDS: HEPARIN SOD,PORK IN 0.45% NACL 25,000 UNIT in 0.45% NACL 1 250ML.BAG IV SCH (13:06)
[2022-10-11] MEDS: NITROGLYCERIN OINT 1 INCH/GM PACKET TOPICAL SCH ×3 (13:12→20:19)
[2022-10-11] MEDS: ACETAMINOPHEN TAB 325 MG TAB PO PRN (13:39)
[2022-10-11] MEDS: MAGNESIUM SULFATE-D5W PMX 1 GM in DEXTROSE/WATER 1 100ML.BAG IVPB SCH ×2 (13:41→14:42)
[2022-10-11 16:20] LABS: Glucose,Whole Blood 302 mg/dL (70-110)
[2022-10-11] MEDS ORDERED: INSULIN PUMP BASAL RATES 1 EACH MISC MISCELLANE PRN (17:19)
[2022-10-11] MEDS ORDERED: INSPUCOR MISCELLANE PRN (17:19)
[2022-10-11] MEDS ORDERED: INSULIN PUMP MEAL BOLUS 1 UNIT MISC MISCELLANE SCH (17:30)
[2022-10-11] MEDS ORDERED: Insulin Aspart (For Pump) 100 UNIT/ML VIAL SQ-PUMP SCH (18:00)
[2022-10-11 20:17] LABS: Glucose,Whole Blood 308 mg/dL (70-110)
[2022-10-11] MEDS: FUROSEMIDE 10 MG/ML 4 ML VIAL IV SCH (20:18)
[2022-10-11] MEDS: METOPROLOL TARTRATE 25 MG TAB PO SCH (20:19)
[2022-10-11] MEDS: FAMOTIDINE 20 MG TAB PO SCH (20:19)
[2022-10-11] MEDS: POTASSIUM CITRATE 10 MEQ TABLET.ER PO SCH (20:19)
[2022-10-11] MEDS: INSULIN ASPART (NovoLOG) 100 UNIT/ML VIAL SQ SCH ×2 (20:30→20:34)
[2022-10-11] MEDS ORDERED: HEPARIN SODIUM 1,000 UN/ML (10ML VL) IV PRN (20:35)
[2022-10-11] MEDS ORDERED: INSULIN DETEMIR (LEVEMIR) 100 UNIT/ML SYR SQ SCH (21:00)
[2022-10-12 02:02] LABS: Glucose,Whole Blood 210 mg/dL (70-110)
[2022-10-12 04:42] LABS: Basophils % (A) 0 %; Eosinophils # (A) 0.1 k/uL (0-0.7); Eosinophils % (A) 1 %; HCT 28.4 % (34.0-46.0); HGB 8.8 gm/dL (11.4-16.0); Hypochromasia Marked; Lymphocytes # (A) 0.9 k/uL (1.0-4.8); Lymphocytes % (A) 9 %; MCH 26.9 pg (25.0-35.0); MCHC 30.9 g/dL (31.0-37.0); Mean Platelet Volume 7.9; Monocytes # (A) 0.2 k/uL (0-1.0); Monocytes % (A) 3 %; Neutrophils # (A) 8.3 k/uL (1.3-7.7); Neutrophils % (A) 87 %; Platelet Count 276 k/uL (150-450); RBC 3.26 m/uL (3.80-5.40); RDW 15.4 % (11.5-15.5); WBC 9.5 k/uL (3.8-10.6)
[2022-10-12 04:56] LABS: Albumin 3.5 g/dL (3.5-5.0); Calcium 8.8 mg/dL (8.4-10.2); Potassium 5.2 mmol/L (3.5-5.1); Total Bilirubin 0.4 mg/dL (0.2-1.3); Total Protein 7.2 g/dL (6.3-8.2)
[2022-10-12] MEDS: FUROSEMIDE 10 MG/ML 4 ML VIAL IV SCH ×3 (05:07→20:39)
[2022-10-12] MEDS: LEVOTHYROXINE 112 MCG TAB PO SCH (06:51)
[2022-10-12 07:04] LABS: Glucose,Whole Blood 287 mg/dL (70-110)
[2022-10-12] MEDS: INSULIN ASPART (NovoLOG) 100 UNIT/ML VIAL SQ SCH ×7 (07:08→20:36)
[2022-10-12] MEDS: FAMOTIDINE 20 MG TAB PO SCH (08:04)
[2022-10-12] MEDS: ATORVASTATIN 20 MG TAB PO SCH (08:04)
[2022-10-12] MEDS: NITROGLYCERIN OINT 1 INCH/GM PACKET TOPICAL SCH ×4 (08:05→20:38)
[2022-10-12] MEDS: LOSARTAN 50 MG TAB PO SCH (08:05)
[2022-10-12] MEDS: amLODIPine 5 MG TAB PO SCH (08:05)
[2022-10-12] MEDS: POTASSIUM CITRATE 10 MEQ TABLET.ER PO SCH ×2 (08:05→20:40)
[2022-10-12] MEDS: METOPROLOL TARTRATE 25 MG TAB PO SCH ×2 (08:05→20:40)
[2022-10-12] MEDS ORDERED: COLLAGENASE 250 UNIT/GM OINTMENT 30 GM TUBE TOPICAL SCH (09:00)
[2022-10-12 11:47] LABS: Glucose,Whole Blood 332 mg/dL (70-110)
[2022-10-12] MEDS: HEPARIN SOD,PORK IN 0.45% NACL 25,000 UNIT in 0.45% NACL 1 250ML.BAG IV SCH (12:14)
--- NOTE | 2022-10-12 14:09 | P.HPIM ---
History of Present Illness H&P Date: 10/11/22 Chief Complaint: Acute hypoxemic respiratory failure due to pulmonary edema/PE HISTORY OF PRESENT ILLNESS: This is a 67-year-old female with a previous medical history significant for hypertension and hypertensive cardiovascular disease, hyperlipidemia, hypothyroidism, chronic gastroesophageal reflux disease with esophagitis, type 1 diabetes mellitus currently on insulin pump, vitamin D deficiency, diabetic neuropathy, patient also had history of spondylosis of the lumbar spine status post lumbar laminectomy back in 07/01/2022 followed by a wound dehiscence at the [facility] of the lumbar area and she ended up going back for another surgical intervention and generally fourth 2022 after that she was sent to [facility] on the [place] for physical therapy rehabilitation, she had a wound that has been treated through the wound care center for the [facility] and currently has been getting Santyl and the area has almost closed up, patient has been following with Dr. Trujillo as an outpatient for her insulin pump, and she stated that her sugar has been getting high recently she presented to the office on 10/08/2021 with increased shortness of breath has been on oxygen 3 L nasal cannula that she has been increased to 5-60 minute visit cannula, she has been complaining of increased swelling in both lower extremity is, she has been complaining of significant dyspnea on exertion, patient weight has been done up to 260, patient scheduled to go to see pulmonary to rule out obesity hypoventilation syndrome as well as obstructive sleep apnea and she was supposed to go see Dr. Foreman the office however she woke up in the morning and she was complaining of significant shortness breath, when her came to check on her she looked castro and she asked him to call 911, patient presented to the emergency department at [facility] she was found to have a significant pulmonary edema on a chest x-ray with bilateral pleural effusion, but because be elevated d-dimer, she underwent CTA of the chest that documented the pulmonary edema and possible pulmonary emboli in the right subsegmental lower lobes, and she was started on heparin drip as well as Lasix 40 mg IV push every 8 hours she was admitted to the hospital echogram was obtained, with cardiology consultation as well as pulmonary consultation REVIEW OF SYSTEMS: Constitutional: No documented fever, no chills, no night sweats. positive for significant weight gain No weakness, fatigue or lethargy. No daytime sleepiness. HEENT: No headache. No blurred vision or double vision, no loss of vision. No loss of Hearing, no ringing in the ears, no dizziness. No nasal drainage or congestion. No epistaxis. No sore throat. Lungs: positive for shortness of breath, occasional cough, no sputum production. No wheezing. Reports dyspnea with activity, positive for orthopneam and PND Cardiovascular: No chest pain, positive for lower extremity edema. positive for palpitations. positive for paroxysmal nocturnal dyspnea. positive for orthopnea. No lightheadedness or dizziness. No syncopal episodes. Abdominal: Reports no abdominal pain. positive for nausea, vomiting. No diarrhea. No constipation. No bloody or tarry stools reports loss of appetite. Genitourinary: No dysuria, increased frequency, urgency. No urinary retention. Musculoskeletal: No myalgias. positive for muscle weakness, positive for gait dysfunction, no frequent falls. positive for back pain. No neck pain. Integumentary: positive for lumbar wound that is covered with santyl , no lesions. No rash or pruritus. No unusual bruising. No change in hair or nails. Neurologic: No aphasia. No facial droop. No change in mentation. No head injury. No headache. No paralysis. No paresthesia. Psychiatric: No depression. No anxiety. No mood swings. Endocrine: No abnormal blood sugars. No weight change. PAST MEDICAL HISTORY: Hypertension and hypertensive cardiovascular disease. Hyperlipidemia. Diabetes mellitus type 1. GERD with esophagitis Hiatal hernia. Vitamin D deficiency. Obesity with possible obstructive sleep apnea and obesity hypoventilation syndrome Chronic hypoxemic respiratory failure requiring 3 L cannula Spondylosis of the lumbar spine status post laminectomy on 07/01/2022 followed by wound dehiscence with revision on July at the lumbar area at the [facility] Kidney stones Hypothyroidism. PAST SURGICAL HISTORY: Total abdominal hysterectomy and bilateral sopping oophorectomy due to dysfunctional uterine bleeding. Cataract surgery 2. Colonoscopy 2014. Left arthroscopic knee surgery. Right 4 toes amputation due to lawnmower accident. Kidney stone surgery with J stent placement and removal. Lumbar laminectomy 07/01/2022. Wound dehiscence with revision of the lumbar area 2022 at the [facility] SOCIAL HISTORY: Patient is a lifelong nonsmoker, she denies any alcohol ingestion, no drug use or abuse. She lives with her uses a walker for ambulation. FAMILY HISTORY: Father at age of 70 from CHF and [place] mother is 90-year-old, patient has one sister 66-year-old alive was sister is 66 with GERD, patient had one son 48-year-old okay and second son live 24 hours, patient had one daughter who live 24 hours, and patient has one adopted child both children are healthy. PHYSICAL EXAMINATION: General: 67-year-old female laying down in bed in moderate respi ratory distress HEENT: Head is atraumatic, normocephalic, pupils were equal round reactive to light and recommendation, extraocular muscle movement were intact, sclera nonicteric, conjunctivae were pale, mucous membranes of the mouth are somewhat dry. Neck: Supple, no JVP, normal carotid upstroke bilaterally, no lymphadenopathy. Chest: Decreased breath sounds at the bases, few rhonchi, positive for expiratory wheezes, no chest wall tenderness, minimal intercostal retractions. Heart: First heart sound is normal, second heart sound is normal tachycardic there is systolic ejection murmur 2/6 located in the left sternal border. Abdomen: Soft, nontender, nondistended, positive bowel sounds. 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 ASSESSMENT AND PLAN: 1. Acute on chronic hypoxemic respiratory failure due to pulmonary edema as well as right lower lobes pulmonary emboli. Continue frusemide 40 mg IV push every 8 hours, continue metoprolol 25 mg orally twice every day, continue losartan 100 mg orally once every day, continue heparin drip as well, echocardiogram for evaluation of LV function, as well as RV strain pattern, cardiology consultation, pulmonary consultation, continue oxygen support, keep saturation greater than 92% at all the time, monitor the patient very closely monitor input and output and daily weight. 2. Pulmonary edema. Continue frusemide 40 mg IV push every 8 hours, continue metoprolol 25 mg orally twice every day, continue losartan 100 mg orally once every day, echo care gram for evaluation of LV function cardiology consultation. 3. Right subsegmental branches of the lower lobes pulmonary emboli continue heparin drip, continue oxygen, patient will need to be switched to Eliquis in 48 hours venous Doppler of both lower extremities. 4. One episode of atrial flutter with RVR. Please refer to the 12-lead EKG in the chart. Continue metoprolol 25 minute gram orally twice every day, continue heparin drip, switch the patient to Eliquis 2.5 mg orally twice every day . 5. Hypertension and hypertensive cardiovascular disease. Continue patient on metoprolol 25 mg orally twice every day, losartan 100 mg orally once every day, continue amlodipine 5 mg orally once every day, monitor the patient very closely. 6. Hyperlipidemia. continue atorvastatin 20 mg orally once every day, monitor the patient the benefit, keep LDL 55-70. 7. Hypothyroidism. Continue patient on Synthroid 112 g orally once every day monitor TSH and free T4. 8. Diabetes mellitus type 1. Discontinue insulin pump, start the patient on Levemir 50 units at bedtime along with NovoLog 12 units plus the sliding scale insulin. 9. GERD with esophagitis and had a hernia. Continue patient on Protonix 40 mg once every day. 10. Obesity with obstructive sleep apnea and possible obesity hypoventilation syndrome patient will need to have a sleep study as an outpatient. 11. Vitamin D deficiency. Continue vitamin D3 2000 units once every day. 12. History of kidney stones. Continue calcium citrate twice a day set of 3 times a day due to hyperkalemia. 13. DVT prophylaxis. Continue patient on heparin drip. 14. GI prophylaxis. Continue PPI. 15. Lumbar dehiscence phoned after surgery at [facility] postlaminectomy continue with local wound care with Santyl every day. 16. Admitted to inpatient. Estimate a length of stay 2 midnights. 17. Full code Past Medical History Past Medical History: Diabetes Mellitus, Hypertension Additional Past Medical History / Comment(s): hypothyroid, kidney stone, GLUCOMA History of Any Multi-Drug Resistant Organisms: None Reported Past Surgical History: Back Surgery, Hysterectomy Additional Past Surgical History / Comment(s): kidney stones removed and stent CATARACTS REMOVED AND STENT PUT IN FOR GLUCOMA Past Anesthesia/Blood Transfusion Reactions: Previous Problems w/ Anesthesia, Postoperative Nausea & Vomiting (PONV) Past Psychological History: No Psychological Hx Reported Smoking Status: Never smoker Past Alcohol Use History: None Reported Past Drug Use History: None Reported - Past Family History Mother Family Medical History: No Reported History Father Additional Family Medical History / Comment(s): Heart history Medications and Allergies Home Medications Medication Instructions Recorded Confirmed Type Metoprolol Tartrate [Lopressor] 25 mg PO BID 01/31/14 10/11/22 History Insulin Aspart (For Pump) [NovoLOG 0.01 unit SQ-PUMP CONTINUOUS 05/16/19 10/11/22 History (For Pump)] Levothyroxine Sodium [Synthroid] 112 mcg PO DAILY 05/16/19 10/11/22 History Losartan Potassium 100 mg PO DAILY 05/16/19 10/11/22 History amLODIPine [Norvasc] 5 mg PO DAILY 05/16/19 10/11/22 History Famotidine [Pepcid] 20 mg PO BID 04/26/20 10/11/22 History Collagenase [Santyl Ointment] 1 applic TOPICAL DAILY 10/11/22 10/11/22 History Potassium Citrate [Potassium 10 meq PO TID 10/11/22 10/11/22 History Citrate ER] Rosuvastatin [Crestor] 10 mg PO DAILY 10/11/22 10/11/22 History Allergies Allergy/AdvReac Type Severity Reaction Status Date / Time No Known Allergies Allergy Verified 10/11/22 11:23 Physical Exam Vitals: Vital Signs Temp Pulse Pulse Resp BP BP Pulse Ox 10/11/22 16:14 98.1 F 99 20 119/61 90 L 10/11/22 14:15 97.6 F 110 H 20 134/63 91 L 10/11/22 13:00 101 H 18 137/63 94 L 10/11/22 12:00 101 H 18 140/73 94 L 10/11/22 11:30 105 H 20 140/73 100 10/11/22 11:01 96 10/11/22 11:00 110/46 100 10/11/22 10:48 99 10/11/22 09:50 112 H 147/62 95 10/11/22 09:22 24 10/11/22 09:21 24 99 10/11/22 09:16 97.7 F 113 H 26 H 134/107 90 L Intake and Output 10/11/22 10/11/22 10/11/22 06:59 14:59 22:59 Other: Voiding Method External Catheter Weight 117.934 kg Results CBC & Chem 7: 10/12/22 04:01 10/12/22 04:01 Labs: Abnormal Lab Results - Last 24 Hours (Table) 10/11/22 10/11/22 10/11/22 Range/Units 09:46 09:46 09:46 RBC 3.61 L (3.80-5.40) m/uL Hgb 9.5 L (11.4-16.0) gm/dL Hct 31.5 L (34.0-46.0) % MCHC 30.2 L (31.0-37.0) g/dL APTT 19.9 L (22.0-30.0) sec D-Dimer 3.30 H (<0.60) mg/L FEU Carbon Dioxide 34 H (22-30) mmol/L BUN 19 H (7-17) mg/dL Glucose 290 H (74-99) mg/dL POC Glucose (mg/dL) (70-110) mg/dL Plasma Lactic Acid Kilo (0.7-2.0) mmol/L Magnesium 1.4 L (1.6-2.3) mg/dL 10/11/22 10/11/22 10/11/22 Range/Units 09:46 12:47 15:46 RBC (3.80-5.40) m/uL Hgb (11.4-16.0) gm/dL Hct (34.0-46.0) % MCHC (31.0-37.0) g/dL APTT (22.0-30.0) sec D-Dimer (<0.60) mg/L FEU Carbon Dioxide (22-30) mmol/L BUN (7-17) mg/dL Glucose (74-99) mg/dL POC Glucose (mg/dL) (70-110) mg/dL Plasma Lactic Acid Kilo 2.1 H* 4.4 H* 3.1 H* (0.7-2.0) mmol/L Magnesium (1.6-2.3) mg/dL 10/11/22 Range/Units 16:19 RBC (3.80-5.40) m/uL Hgb (11.4-16.0) gm/dL Hct (34.0-46.0) % MCHC (31.0-37.0) g/dL APTT (22.0-30.0) sec D-Dimer (<0.60) mg/L FEU Carbon Dioxide (22-30) mmol/L BUN (7-17) mg/dL Glucose (74-99) mg/dL POC Glucose (mg/dL) 302 H (70-110) mg/dL Plasma Lactic Acid Kilo (0.7-2.0) mmol/L Magnesium (1.6-2.3) mg/dL Thrombosis Risk Factor Assmnt - Choose All That Apply Each Factor Represents 1 point: Heart failure (<1month), Swollen legs (current) Each Risk Factor Represents 2 Points: Age 61-74 years Other congenital or acquired thrombophilia - If yes, enter type in comment: No Thrombosis Risk Factor Assessment Total Risk Factor Score: 4 Thrombosis Risk Factor Assessment Level: Moderate Risk
--- NOTE | 2022-10-12 14:15 | P.PN ---
Subjective Progress Note Date: 10/12/22 HISTORY OF PRESENT ILLNESS: This is a 67-year-old female with a previous medical history signif icant for hypertension and hypertensive cardiovascular disease, hyperlipidemia, hypothyroidism, chronic gastroesophageal reflux disease with esophagitis, type 1 diabetes mellitus currently on insulin pump, vitamin D deficiency, diabetic neuropathy, patient also had history of spondylosis of the lumbar spine status post lumbar laminectomy back in 07/01/2022 followed by a wound dehiscence at the [facility] of the lumbar area and she ended up going back for another surgical intervention and generally fourth 2022 after that she was sent to [facility] on the [place] for physical therapy rehabilitation, she had a wound that has been treated through the wound care center for the [facility] and currently has been getting Santyl and the area has almost closed up, patient has been following with Dr. Trujillo as an outpatient for her insulin pump, and she stated that her sugar has been getting high recently she presented to the office on 10/08/2021 with increased shortness of breath has been on oxygen 3 L nasal cannula that she has been increased to 5-60 minute visit cannula, she has been complaining of increased swelling in both lower extremity is, she has been complaining of significant dyspnea on exertion, patient weight has been done up to 260, patient scheduled to go to see pulmonary to rule out obesity hypoventilation syndrome as well as obstructive sleep apnea and she was supposed to go see Dr. Foreman the office however she woke up in the morning and she was complaining of significant shortness breath, when her came to check on her she looked castro and she asked him to call 911, patient presented to the emergency department at [facility] she was found to have a significant pulmonary edema on a chest x-ray with bilateral pleural effusion, but because be elevated d-dimer, she underwent CTA of the chest that documented the pulmonary edema and possible pulmonary emboli in the right subsegmental lower lobes, and she was started on heparin drip as well as Lasix 40 mg IV push every 8 hours she was admitted to the hospital echogram was obtained, with cardiology consultation as well as pulmonary consultation 10/12: Patient is sitting up at the edge of the bed she is doing better today, she is up on oxygen to 6 L nasal cannula, she continues to diurese very well, mildly elevated potassium at 5.2, we'll decrease her potassium citrate to twice a day, continue heparin drip, continue metoprolol, continue losartan, continue to monitor the patient very closely, echocardiogram was done, venous Doppler of both lower extremity would be done to rule out any DVT, please keep the patient on heparin drip for now. REVIEW OF SYSTEMS: Constitutional: No documented fever, no chills, no night sweats. positive for significant weight gain No weakness, fatigue or lethargy. No daytime sleepiness. HEENT: No headache. No blurred vision or double vision, no loss of vision. No loss of Hearing, no ringing in the ears, no dizziness. No nasal drainage or congestion. No epistaxis. No sore throat. Lungs: positive for shortness of breath, occasional cough, no sputum production. No wheezing. Reports dyspnea with activity, positive for orthop neam and PND Cardiovascular: No chest pain, positive for lower extremity edema. positive for palpitations. positive for paroxysmal nocturnal dyspnea. positive for orthopnea. No lightheadedness or dizziness. No syncopal episodes. Abdominal: Reports no abdominal pain. positive for nausea, vomiting. No diarrhea. No constipation. No bloody or tarry stools reports loss of appetite. Genitourinary: No dysuria, increased frequency, urgency. No urinary retention. Musculoskeletal: No myalgias. positive for muscle weakness, positive for gait dysfunction, no frequent falls. positive for back pain. No neck pain. Integumentary: positive for lumbar wound that is covered with santyl , no lesions. No rash or pruritus. No unusual bruising. No change in hair or nails. Neurologic: No aphasia. No facial droop. No change in mentation. No head injury. No headache. No paralysis. No paresthesia. Psychiatric: No depression. No anxiety. No mood swings. Endocrine: positive for abnormal blood sugars. positive for weight change. PHYSICAL EXAMINATION: General: 67-year-old female laying down in bed in moderate respiratory distress HEENT: Head is atraumatic, normocephalic, pupils were equal round reactive to light and recommendation, extraocular muscle movement were intact, sclera nonicteric, conjunctivae were pale, mucous membranes of the mouth are somewhat dry. Neck: Supple, no JVP, normal carotid upstroke bilaterally, no lymphadenopathy. Chest: Decreased breath sounds at the bases, few rhonchi, positive for expiratory wheezes, no chest wall tenderness, minimal intercostal retractions. Heart: First heart sound is normal, second heart sound is normal tachycardic there is systolic ejection murmur 2/6 located in the left sternal border. Abdomen: Soft, nontender, nondistended, positive bowel sounds. 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 ASSESSMENT AND PLAN: 1. Acute on chronic hypoxemic respiratory failure due to pulmonary edema as well as right lower lobes pulmonary emboli. Continue frusemide 40 mg IV push every 8 hours, continue metoprolol 25 mg orally twice every day, continue losartan 100 mg orally once every day, continue heparin drip as well, echocardiogram for evaluation of LV function, as well as RV strain pattern, cardiology consultation, pulmonary consultation, continue oxygen support, keep saturation greater than 92% at all the time, monitor the patient very closely monitor input and output and daily weight. 2. Pulmonary edema. Continue frusemide 40 mg IV push every 8 hours, continue metoprolol 25 mg orally twice every day, continue losartan 100 mg orally once every day, echo care gram for evaluation of LV function cardiology consultation. 3. Right subsegmental branches of the lower lobes pulmonary emboli continue heparin drip, continue oxygen, patient will need to be switched to Eliquis in 48 hours venous Doppler of both lower extremities. 4. One episode of atrial flutter with RVR. Please refer to the 12-lead EKG in the chart. Continue metoprolol 25 minute gram orally twice every day, continue heparin drip, switch the patient to Eliquis 2.5 mg orally twice every day . 5. Hypertension and hypertensive cardiovascular disease. Continue patient on metoprolol 25 mg orally twice every day, losartan 100 mg orally once every day, continue amlodipine 5 mg orally once every day, monitor the patient very closely. 6. Hyperlipidemia. continue atorvastatin 20 mg orally once every day, monitor the patient the benefit, keep LDL 55-70. 7. Hypothyroidism. Continue patient on Synthroid 112 g orally once every day monitor TSH and free T4. 8. Diabetes mellitus type 1. Discontinue insulin pump, start the patient on Levemir 50 units at bedtime along with NovoLog 12 units plus the sliding scale insulin. 9. GERD with esophagitis and had a hernia. Continue patient on Protonix 40 mg once every day. 10. Obesity with obstructive sleep apnea and possible obesity hypoventilation syndrome patient will need to have a sleep study as an outpatient. 11. Vitamin D deficiency. Continue vitamin D3 2000 units once every day. 12. History of kidney stones. Continue calcium citrate twice a day set of 3 times a day due to hyperkalemia. 13. DVT prophylaxis. Continue patient on heparin drip. 14. GI prophylaxis. Continue PPI. 15. Lumbar dehiscence phoned after surgery at [facility] postlaminectomy continue with local wound care with Santyl every day. Objective - Vital Signs Vital signs: Vital Signs Temp 97.9 F 10/12/22 08:00 Pulse 75 10/12/22 12:11 Resp 18 10/12/22 12:11 BP 106/58 10/12/22 12:11 Pulse Ox 93 L 10/12/22 12:11 FiO2 Intake & Output 10/11/22 10/12/22 10/12/22 18:59 06:59 18:59 Intake Total 260 159.577 749.342 Output Total 450 Balance -190 159.577 749.342 Weight 117.934 kg 114 kg 114 kg Intake: Intake, IV Titration 260 159.577 89.342 Amount Heparin Sod,Pork in 0.45% 60 159.577 89.342 NaCl 25,000 unit In 0.45 % NaCl 1 250ml.bag @ 8.48 UNITS/KG/HR 10.001 mls/ hr IV .Q24H [facility] Rx#: [id number] Magnesium Sulfate-D5w Pmx 200 1 gm In Dextrose/Water 1 100ml.bag @ 100 mls/hr IVPB Q1H [facility] Rx#: [id number] Oral 660 Output: Urine 450 Other: Voiding Method External Catheter External Catheter External Catheter # Voids 2 - Labs CBC & Chem 7: 10/12/22 04:01 10/12/22 04:01 Labs: Abnormal Lab Results - Last 24 Hours (Table) 10/11/22 10/11/22 10/11/22 Range/Units 15:46 16:19 19:21 RBC (3.80-5.40) m/uL Hgb (11.4-16.0) gm/dL Hct (34.0-46.0) % MCHC (31.0-37.0) g/dL Neutrophils # (1.3-7.7) k/uL Lymphocytes # (1.0-4.8) k/uL APTT 33.5 H (22.0-30.0) sec Sodium (137-145) mmol/L Potassium (3.5-5.1) mmol/L Carbon Dioxide (22-30) mmol/L BUN (7-17) mg/dL Glucose (74-99) mg/dL POC Glucose (mg/dL) 302 H (70-110) mg/dL Plasma Lactic Acid Kilo 3.1 H* (0.7-2.0) mmol/L AST (14-36) U/L 10/11/22 10/11/22 10/11/22 Range/Units 19:21 20:15 23:05 RBC (3.80-5.40) m/uL Hgb (11.4-16.0) gm/dL Hct (34.0-46.0) % MCHC (31.0-37.0) g/dL Neutrophils # (1.3-7.7) k/uL Lymphocytes # (1.0-4.8) k/uL APTT (22.0-30.0) sec Sodium (137-145) mmol/L Potassium (3.5-5.1) mmol/L Carbon Dioxide (22-30) mmol/L BUN (7-17) mg/dL Glucose (74-99) mg/dL POC Glucose (mg/dL) 308 H (70-110) mg/dL Plasma Lactic Acid Kilo 2.4 H* 2.1 H* (0.7-2.0) mmol/L AST (14-36) U/L 10/12/22 10/12/22 10/12/22 Range/Units 01:24 01:59 04:01 RBC 3.26 L (3.80-5.40) m/uL Hgb 8.8 L (11.4-16.0) gm/dL Hct 28.4 L (34.0-46.0) % MCHC 30.9 L (31.0-37.0) g/dL Neutrophils # 8.3 H (1.3-7.7) k/uL Lymphocytes # 0.9 L (1.0-4.8) k/uL APTT 101.0 H* (22.0-30.0) sec Sodium (137-145) mmol/L Potassium (3.5-5.1) mmol/L Carbon Dioxide (22-30) mmol/L BUN (7-17) mg/dL Glucose (74-99) mg/dL POC Glucose (mg/dL) 210 H (70-110) mg/dL Plasma Lactic Acid Kilo (0.7-2.0) mmol/L AST (14-36) U/L 10/12/22 10/12/22 10/12/22 Range/Units 04:01 06:28 07:02 RBC (3.80-5.40) m/uL Hgb (11.4-16.0) gm/dL Hct (34.0-46.0) % MCHC (31.0-37.0) g/dL Neutrophils # (1.3-7.7) k/uL Lymphocytes # (1.0-4.8) k/uL APTT 36.8 H (22.0-30.0) sec Sodium 136 L (137-145) mmol/L Potassium 5.2 H (3.5-5.1) mmol/L Carbon Dioxide 35 H (22-30) mmol/L BUN 26 H (7-17) mg/dL Glucose 213 H (74-99) mg/dL POC Glucose (mg/dL) 287 H (70-110) mg/dL Plasma Lactic Acid Kilo (0.7-2.0) mmol/L AST 41 H (14-36) U/L 10/12/22 10/12/22 Range/Units 11:17 11:45 RBC (3.80-5.40) m/uL Hgb (11.4-16.0) gm/dL Hct (34.0-46.0) % MCHC (31.0-37.0) g/dL Neutrophils # (1.3-7.7) k/uL Lymphocytes # (1.0-4.8) k/uL APTT 32.8 H (22.0-30.0) sec Sodium (137-145) mmol/L Potassium (3.5-5.1) mmol/L Carbon Dioxide (22-30) mmol/L BUN (7-17) mg/dL Glucose (74-99) mg/dL POC Glucose (mg/dL) 332 H (70-110) mg/dL Plasma Lactic Acid Kilo (0.7-2.0) mmol/L AST (14-36) U/L Microbiology - Last 24 Hours (Table) 10/11/22 09:46 Blood Culture - Preliminary Blood No Growth after 24 hours 10/11/22 09:46 Blood Culture - Preliminary Blood No Growth after 24 hours
--- NOTE | 2022-10-12 14:18 | P.CRDCN ---
History of Present Illness Consult date: 10/12/22 Consult reason: shortness of breath Chief complaint: shortness of breath History of present illness: History of present illness: Patient is a pleasant 67-year-old female with significant past medical history of diabetes type 1, hypertension, kidney stones, TIA, recent back surgery who presented to the emergency department with significant shortness of breath. She reports that back in June she underwent lumbar surgery at [facility], post procedure she was admitted to the ICU with "breathing issues "she states this is related to fluid on her lungs from anesthesia. She then went to rehab at [facility] on the [place]. Her wound began to dehisce and she required repeat surgery in July. She states that she was discharged home on oxygen 3 L nasal cannula and that her oxygen saturation drops without it. She states that her leg swelling has improved. States she was not discharged home on a water pill. This past week she had not been feeling well and saw her PCP, she was actually scheduled to see her caseworker protective services yesterday however she woke up feeling more short of breath and was unable to catch her breath. Her came home from the store and noted that she looked crenshaw and was struggling to breathe, she called 911. Chest x-ray showed cardiomegaly with pulmonary vascular congestion, small bilateral pleural effusions. CTA it was a limited exam however unable to exclude a pulmonary embolism, reported CHF with pulmonary edema. She states that she had previously been on Plavix for many years since her TIA in 1999, however this medication was stopped with her back surgery and has not been resumed. Today she reports that her shortness of breath has improved she states this is related to her receiving steroids. She denies any recent stress testing and does not follow with compilation clerk. Troponin negative 1. BNP 2110. Creatinine 0.98. A1c 7.4. LDL 45. REVIEW OF SYSTEMS: No fever or chills. No cough or expectoration.Reports shortness of breath. Reports lower extremity edema. No diaphoresis. Patient denies headache, dizziness, blurred vision, double vision. Patient denies any stomach discomfort. No nausea, vomiting. No hematochezia. No hematemesis. Denies any black stools or blood in his stools. Denies dysuria or hematuria. No muscle weakness or numbness. No chest pain or pressure. PHYSICAL EXAMINATION: This is a 67 year-old female in no apparent distress at the time of my examination. HEENT: Head is atraumatic, normocephalic. Pupils are equal, round. Sclerae anicteric. Conjunctivae are clear. Mucous membranes of the mouth are moist. Neck is supple. There is no jugular venous distention. CHEST EXAMINATION: Lungs with crackles bilat base. No chest wall tenderness is noted on palpation or with deep breathing. HEART EXAMINATION: Heart regular rate and rhythm. S1, S2 heard. No murmurs, gallops or rub. ABDOMEN: Soft, nontender. Bowel sounds are heard. EXTREMITIES: 2+ peripheral pulses with trace peripheral edema. NEUROLOGIC EXAMINATION: Patient is awake, alert and oriented x3. IMPRESSION AND PLAN: Heart failure Shortness of breath, questionable pulmonary embolism on CTA, currently being treated as PE with anticoagulation Pulmonary edema Bilateral pleural effusion Hypertension Diabetes type 1 PLAN: We will check an echocardiogram to assess heart function and structure. Continue with IV diuretics and monitor response. Avoid salt. BP control. Continue anticoagulation for possible pulmonary embolism, will likely repeat CTA in 3 months. Will continue to follow. I am dictating on behalf of Dr. Juan Pablo Elkins's history/physical and assessment/plan. Past Medical History Past Medical History: Diabetes Mellitus, Hypertension Additional Past Medical History / Comment(s): hypothyroid, kidney stone, GLUCOMA History of Any Multi-Drug Resistant Organisms: None Reported Past Surgical History: Back Surgery, Hysterectomy Additional Past Surgical History / Comment(s): kidney stones removed and stent CATARACTS REMOVED AND STENT PUT IN FOR GLUCOMA Past Anesthesia/Blood Transfusion Reactions: Previous Problems w/ Anesthesia, Postoperative Nausea & Vomiting (PONV) Past Psychological History: No Psychological Hx Reported Smoking Status: Never smoker Past Alcohol Use History: None Reported Past Drug Use History: None Reported - Past Family History Mother Family Medical History: No Reported History Father Additional Family Medical History / Comment(s): Heart history Medications and Allergies Home Medications Medication Instructions Recorded Confirmed Type Metoprolol Tartrate [Lopressor] 25 mg PO BID 01/31/14 10/11/22 History Insulin Aspart (For Pump) [NovoLOG 0.01 unit SQ-PUMP CONTINUOUS 05/16/19 10/11/22 History (For Pump)] Levothyroxine Sodium [Synthroid] 112 mcg PO DAILY 05/16/19 10/11/22 History Losartan Potassium 100 mg PO DAILY 05/16/19 10/11/22 History amLODIPine [Norvasc] 5 mg PO DAILY 05/16/19 10/11/22 History Famotidine [Pepcid] 20 mg PO BID 04/26/20 10/11/22 History Collagenase [Santyl Ointment] 1 applic TOPICAL DAILY 10/11/22 10/11/22 History Potassium Citrate [Potassium 10 meq PO TID 10/11/22 10/11/22 History Citrate ER] Rosuvastatin [Crestor] 10 mg PO DAILY 10/11/22 10/11/22 History Allergies Allergy/AdvReac Type Severity Reaction Status Date / Time No Known Allergies Allergy Verified 10/11/22 11:23 Physical Exam Vitals: Vital Signs Temp Pulse Pulse Resp BP BP Pulse Ox 10/12/22 09:44 83 18 10/12/22 08:36 94 L 10/12/22 08:00 97.9 F 83 18 111/65 94 L 10/12/22 03:41 98.3 F 76 18 122/64 92 L 10/12/22 02:00 69 18 10/12/22 00:00 98.3 F 69 18 101/57 93 L 10/11/22 20:30 94 L 10/11/22 20:15 89 L 10/11/22 20:00 98 F 101 H 20 120/55 84 L 10/11/22 16:14 98.1 F 99 20 119/61 90 L 10/11/22 14:15 97.6 F 110 H 20 134/63 91 L 10/11/22 13:00 101 H 18 137/63 94 L 10/11/22 12:00 101 H 18 140/73 94 L 10/11/22 11:30 105 H 20 140/73 100 10/11/22 11:01 96 10/11/22 11:00 110/46 100 Intake and Output 10/11/22 10/12/22 10/12/22 22:59 06:59 14:59 Intake Total 334.507 85.07 660 Output Total 450 Balance -115.493 85.07 660 Intake: Intake, IV Titration 334.507 85.07 Amount Heparin Sod,Pork in 0.45% 134.507 85.07 NaCl 25,000 unit In 0.45 % NaCl 1 250ml.bag @ 8.48 UNITS/KG/HR 10.001 mls/ hr IV .Q24H [facility] Rx#: [id number] Magnesium Sulfate-D5w Pmx 200 1 gm In Dextrose/Water 1 100ml.bag @ 100 mls/hr IVPB Q1H [facility] Rx#: [id number] Oral 660 Output: Urine 450 Other: Voiding Method External Catheter External Catheter External Catheter # Voids 2 Weight 114 kg 114 kg Results 10/12/22 04:01 10/12/22 04:01 Cardiac Enzymes 10/12/22 Range/Units 04:01 AST 41 H (14-36) U/L Coagulation 10/11/22 10/12/22 10/12/22 Range/Units 19:21 01:24 06:28 APTT 33.5 H 101.0 H* 36.8 H (22.0-30.0) sec CBC 10/12/22 Range/Units 04:01 WBC 9.5 (3.8-10.6) k/uL RBC 3.26 L (3.80-5.40) m/uL Hgb 8.8 L (11.4-16.0) gm/dL Hct 28.4 L (34.0-46.0) % Plt Count 276 (150-450) k/uL Comprehensive Metabolic Panel 10/12/22 Range/Units 04:01 Sodium 136 L (137-145) mmol/L Potassium 5.2 H (3.5-5.1) mmol/L Chloride 99 (98-107) mmol/L Carbon Dioxide 35 H (22-30) mmol/L BUN 26 H (7-17) mg/dL Creatinine 0.98 (0.52-1.04) mg/dL Glucose 213 H (74-99) mg/dL Calcium 8.8 (8.4-10.2) mg/dL AST 41 H (14-36) U/L ALT 13 (4-34) U/L Alkaline Phosphatase 75 (38-126) U/L Total Protein 7.2 (6.3-8.2) g/dL Albumin 3.5 (3.5-5.0) g/dL Current Medications Generic Name Dose Route Start Last Admin Trade Name Freq PRN Reason Stop Dose Admin Acetaminophen 650 mg 10/11/22 13:23 10/11/22 13:39 Acetaminophen Tab 325 Mg Tab PO 650 mg Q6HR PRN Administration Fever and/ or Pain Amlodipine Besylate 5 mg 10/12/22 09:00 10/12/22 08:05 Amlodipine 5 Mg Tab PO 5 mg DAILY [facility] Administration Atorvastatin Calcium 20 mg 10/12/22 09:00 10/12/22 08:04 Atorvastatin 20 Mg Tab PO 20 mg DAILY [facility] Administration Famotidine 20 mg 10/11/22 21:00 10/12/22 08:04 Famotidine 20 Mg Tab PO 20 mg BID [facility] Administration Furosemide 40 mg 10/11/22 20:00 10/12/22 05:07 Furosemide 10 Mg/Ml 4 Ml Vial IV 40 mg Q8H [facility] Administration Heparin Sodium (Porcine) 0 unit 10/11/22 20:35 10/11/22 20:41 Heparin Sodium 1,000 Un/Ml (10ml Vl) IV 4,000 unit PER PROTOCOL PRN Administration Low PTT Protocol Heparin Sodium/Sodium Chloride 250 mls @ 10.001 mls/hr 10/11/22 12:30 10/12/22 04:50 25,000 unit/ Sodium Chloride IV 8.48 units/kg/hr .Q24H [facility] 10.001 mls/hr Titration Protocol 8.48 UNITS/KG/HR Insulin Aspart 12 unit 10/12/22 07:30 10/12/22 07:08 Insulin Aspart (Novolog) 100 Unit/Ml Vial SQ 12 unit AC-TID [facility] Administration Insulin Aspart 0 unit 10/11/22 21:00 10/12/22 07:09 Insulin Aspart (Novolog) 100 Unit/Ml Vial SQ 9 unit ACHS [facility] Administration Protocol Insulin Detemir 40 unit 10/11/22 21:00 10/11/22 20:19 Insulin Detemir (Levemir) 100 Unit/Ml Syr SQ 40 unit HS [facility] Administration Levothyroxine Sodium 112 mcg 10/12/22 06:30 10/12/22 06:51 Levothyroxine 112 Mcg Tab PO 112 mcg DAILY@0630 [facility] Administration Losartan Potassium 100 mg 10/12/22 09:00 10/12/22 08:05 Losartan 50 Mg Tab PO 100 mg DAILY [facility] Administration Metoprolol Tartrate 25 mg 10/11/22 21:00 10/12/22 08:05 Metoprolol Tartrate 25 Mg Tab PO 25 mg BID [facility] Administration Nitroglycerin 1 inch 10/11/22 13:00 10/12/22 08:05 Nitroglycerin Oint 1 Inch/Gm Packet TOPICAL 1 inch QID [facility] Administration Collagenase 250 Unit 1 each 10/12/22 09:00 /Gm Ointment 30 Gm TOPICAL Tube DAILY [facility] Protocol Potassium Citrate 10 meq 10/11/22 22:00 10/12/22 08:05 Potassium Citrate 10 Meq Tablet.Er PO 10 meq TID [facility] Administration Intake and Output 10/11/22 10/12/22 10/12/22 22:59 06:59 14:59 Intake Total 334.507 85.07 660 Output Total 450 Balance -115.493 85.07 660 Intake: Intake, IV Titration 334.507 85.07 Amount Heparin Sod,Pork in 0.45% 134.507 85.07 NaCl 25,000 unit In 0.45 % NaCl 1 250ml.bag @ 8.48 UNITS/KG/HR 10.001 mls/ hr IV .Q24H [facility] Rx#: [id number] Magnesium Sulfate-D5w Pmx 200 1 gm In Dextrose/Water 1 100ml.bag @ 100 mls/hr IVPB Q1H [facility] Rx#: [id number] Oral 660 Output: Urine 450 Other: Voiding Method External Catheter External Catheter External Catheter # Voids 2 Weight 114 kg 114 kg Patient Weight 10/13/22 06:59 Weight 114 kg 10/12/22 04:01 10/12/22 04:01
[2022-10-12] MEDS: COLLAGENASE 250 UNIT/GM OINTMENT 30 GM TUBE TOPICAL SCH (15:05)
--- NOTE | 2022-10-12 15:18 | US ---
EXAMINATION TYPE: US venous doppler duplex LE DATE OF EXAM: 10/12/2022 2:11 PM COMPARISON: NONE CLINICAL HISTORY: possible DVT. Possible PE's. Inpatient. Patient is on Heparin. No leg redness or swelling. SIDE PERFORMED: Bilateral TECHNIQUE: The lower extremity deep venous system is examined utilizing real time linear array sonog lorne with graded compression, doppler sonography and color-flow sonography. VESSELS IMAGED: Common Femoral Vein Deep Femoral Vein Greater Saphenous Vein * Femoral Vein Popliteal Vein Small Saphenous Vein * Proximal Calf Veins (* superficial vessels) Right Leg: Negative for DVT Left Leg: Negative for DVT IMPRESSION: No evidence of deep vein thrombosis in both legs.
--- NOTE | 2022-10-12 15:54 | CA ---
Transthoracic Echo Report Name: Caar Martinez Age: 67 Gender: F : 1955 Exam Date: 10/12/2022 14:01 Exam Location: [facility] Ht (in): 60 Wt (lb): 260 Ordering Physician: Teresa Fields MD Attending/Referring Phys: Guest Services Coordinator Seamus Morfin RDCS Procedure CPT: Indications: chf Cardiac Hx: HTN;CAD;high cholesterol; Type I DM; Obesity; SOB; Technical Quality: Technically difficult study Contrast 1: Lumason Total Dose (mL): 4 Contrast 2: Total Dose (mL): MEASUREMENTS (Male / Female) Normal Values 2D ECHO LV Diastolic Diameter PLAX 4.3 cm 4.2 - 5.9 / 3.9 - 5.3 cm LV Systolic Diameter PLAX 3.4 cm IVS Diastolic Thickness 1.1 cm 0.6 - 1.0 / 0.6 - 0.9 cm LVPW Diastolic Thickness 1.1 cm 0.6 - 1.0 / 0.6 - 0.9 cm LV Relative Wall Thickness 0.5 RV Internal Dim ED PLAX 3.9 cm LVOT Diameter 2.0 cm LA Systolic Diameter LX 4.1 cm 3.0 - 4.0 / 2.7 - 3.8 cm Ascending Aorta Diameter 2.4 cm M-MODE Aortic Root Diameter MM 2.7 cm LA Systolic Diameter MM 4.3 cm LA Ao Ratio MM 1.6 MV E Point Septal Separation 1.7 cm AV Cusp Separation MM 1.2 cm DOPPLER AV Peak Velocity 166.7 cm/s AV Peak Gradient 11.1 mmHg MV Peak Velocity 131.6 cm/s MV Peak Gradient 6.9 mmHg MV Mean Velocity 82.7 cm/s MV Mean Gradient 3.0 mmHg MV Velocity Time Integral 34.4 cm MR Peak Velocity 324.3 cm/s MR Peak Gradient 42.1 mmHg Mitral E Point Velocity 65.3 cm/s Mitral A Point Velocity 46.4 cm/s Mitral E to A Ratio 1.4 MV Deceleration Time 104.2 ms MV E' Velocity 4.2 cm/s Mitral E to MV E' Ratio 15.6 TR Peak Velocity 13.6 cm/s TR Peak Gradient 0.1 mmHg PV Peak Velocity 80.1 cm/s PV Peak Gradient 2.6 mmHg FINDINGS Left Ventricle Left ventricular ejection fraction is estimated at 50%. Grade 2 diastolic dysfunction. Right Ventricle Normal right ventricular size and function. Right Atrium Normal right atrial size. Left Atrium Mild left atrial dilatation. Mitral Valve Mitral valve thickened. Mild mitral stenosis. Mild mitral regurgitation. Aortic Valve Trileaflet aortic valve. Diffuse thickening (sclerosis) of the aortic valve cusps without reduced excursion. Tricuspid Valve Trace to mild tricuspid regurgitation. Pulmonic Valve Structurally normal pulmonic valve. Pericardium Normal pericardium. No pericardial effusion. Aorta Normal size aortic root and proximal ascending aorta. CONCLUSIONS Left ventricular ejection fraction 50% with mild global hypokinesis Mild mitral regurgitation Trace to mild tricuspid regurgitation No pericardial effusion Previewed by: Dr. Juan Pablo Elkins DO (Electronically Signed) Final Date: 12 October 2022 15:53
[2022-10-12 16:50] LABS: Glucose,Whole Blood 233 mg/dL (70-110)
[2022-10-12] MEDS: ACETAMINOPHEN TAB 325 MG TAB PO PRN (18:28)
[2022-10-12 19:52] LABS: Glucose,Whole Blood 196 mg/dL (70-110)
[2022-10-12] MEDS: INSULIN DETEMIR (LEVEMIR) 100 UNIT/ML SYR SQ SCH (20:36)
[2022-10-13 02:12] LABS: Glucose,Whole Blood 174 mg/dL (70-110)
[2022-10-13 05:54] LABS: Glucose,Whole Blood 193 mg/dL (70-110)
[2022-10-13] MEDS: PANTOPRAZOLE 40 MG/10 ML VIAL IVP SCH (06:03)
[2022-10-13] MEDS: amLODIPine 5 MG TAB PO SCH (06:04)
[2022-10-13] MEDS: METOPROLOL TARTRATE 25 MG TAB PO SCH ×2 (06:04→21:28)
[2022-10-13] MEDS: FAMOTIDINE 20 MG TAB PO SCH (06:04)
[2022-10-13] MEDS: NITROGLYCERIN OINT 1 INCH/GM PACKET TOPICAL SCH ×4 (06:04→23:18)
[2022-10-13] MEDS: POTASSIUM CITRATE 10 MEQ TABLET.ER PO SCH ×2 (06:04→21:28)
[2022-10-13] MEDS: LEVOTHYROXINE 112 MCG TAB PO SCH (06:04)
[2022-10-13] MEDS: FUROSEMIDE 10 MG/ML 4 ML VIAL IV SCH (06:04)
[2022-10-13] MEDS: LOSARTAN 50 MG TAB PO SCH (06:04)
[2022-10-13] MEDS: ATORVASTATIN 20 MG TAB PO SCH (06:04)
[2022-10-13] MEDS: INSULIN ASPART (NovoLOG) 100 UNIT/ML VIAL SQ SCH ×7 (06:05→21:27)
[2022-10-13 09:09] LABS: ALT 17 U/L (4-34); AST 39 U/L (14-36); African American GFR (CKD) 56 (>60 ml/min/1.73 sqM); Albumin 3.4 g/dL (3.5-5.0); Alkaline Phosphatase 56 U/L (38-126); Anion Gap 1 mmol/L; Blood Urea Nitrogen 46 mg/dL (7-17); Calcium 8.8 mg/dL (8.4-10.2); Chloride 97 mmol/L (98-107); Glucose 125 mg/dL (74-99); Magnesium 1.9 mg/dL (1.6-2.3); Non-African American GFR(CKD) 49 (>60 ml/min/1.73 sqM); Potassium 5.1 mmol/L (3.5-5.1); Sodium 138 mmol/L (137-145); Total Bilirubin 0.4 mg/dL (0.2-1.3)
[2022-10-13 09:11] LABS: Basophils # (A) 0.1 k/uL (0-0.2); Basophils % (A) 0 %; Eosinophils # (A) 0.2 k/uL (0-0.7); Eosinophils % (A) 2 %; HCT 26.6 % (34.0-46.0); HGB 8.3 gm/dL (11.4-16.0); Hypochromasia Moderate; Lymphocytes # (A) 1.8 k/uL (1.0-4.8); Lymphocytes % (A) 15 %; MCH 26.7 pg (25.0-35.0); MCHC 31.2 g/dL (31.0-37.0); MCV 85.5 fL (80.0-100.0); Mean Platelet Volume 8.1; Monocytes # (A) 0.7 k/uL (0-1.0); Monocytes % (A) 6 %; Neutrophils # (A) 9.1 k/uL (1.3-7.7); Neutrophils % (A) 76 %; Platelet Count 246 k/uL (150-450); RBC 3.12 m/uL (3.80-5.40); RDW 15.5 % (11.5-15.5)
[2022-10-13 09:29] LABS: Carbon Dioxide >40 mmol/L (22-30)
--- NOTE | 2022-10-13 11:12 | P.PN ---
Subjective Progress Note Date: 10/13/22 HISTORY OF PRESENT ILLNESS: This is a 67-year-old female with a previous medical history signif icant for hypertension and hypertensive cardiovascular disease, hyperlipidemia, hypothyroidism, chronic gastroesophageal reflux disease with esophagitis, type 1 diabetes mellitus currently on insulin pump, vitamin D deficiency, diabetic neuropathy, patient also had history of spondylosis of the lumbar spine status post lumbar laminectomy back in 07/01/2022 followed by a wound dehiscence at the [facility] of the lumbar area and she ended up going back for another surgical intervention and generally fourth 2022 after that she was sent to [facility] on the [place] for physical therapy rehabilitation, she had a wound that has been treated through the wound care center for the [facility] and currently has been getting Santyl and the area has almost closed up, patient has been following with Dr. Trujillo as an outpatient for her insulin pump, and she stated that her sugar has been getting high recently she presented to the office on 10/08/2021 with increased shortness of breath has been on oxygen 3 L nasal cannula that she has been increased to 5-60 minute visit cannula, she has been complaining of increased swelling in both lower extremity is, she has been complaining of significant dyspnea on exertion, patient weight has been done up to 260, patient scheduled to go to see pulmonary to rule out obesity hypoventilation syndrome as well as obstructive sleep apnea and she was supposed to go see Dr. Foreman the office however she woke up in the morning and she was complaining of significant shortness breath, when her came to check on her she looked castro and she asked him to call 911, patient presented to the emergency department at [facility] she was found to have a significant pulmonary edema on a chest x-ray with bilateral pleural effusion, but because be elevated d-dimer, she underwent CTA of the chest that documented the pulmonary edema and possible pulmonary emboli in the right subsegmental lower lobes, and she was started on heparin drip as well as Lasix 40 mg IV push every 8 hours she was admitted to the hospital echogram was obtained, with cardiology consultation as well as pulmonary consultation 10/12: Patient is sitting up at the edge of the bed she is doing better today, she is up on oxygen to 6 L nasal cannula, she continues to diurese very well, mildly elevated potassium at 5.2, we'll decrease her potassium citrate to twice a day, continue heparin drip, continue metoprolol, continue losartan, continue to monitor the patient very closely, echocardiogram was done, venous Doppler of both lower extremity would be done to rule out any DVT, please keep the patient on heparin drip for now. 10/13: Patient is sitting up in bed and feeling better today, her troponin went up to 4.9, she was rolled into non-ST elevation AL, patient did have echocardiogram did show evidence of mild global hypokinesia with ejection fraction 50% mild mitral regurgitation and tricuspid regurgitation no pulmonary hypertension, continue patient on heparin drip, continue patient on metoprolol 25 mg orally twice every day, pulmonary consultation for evaluation of possible pulmonary emboli at the lower lobe segmental branches, patient will need to go for a heart catheter physician for evaluation of the coronary anatomy at this time, I would decrease her Lasix to 40 mg po daily REVIEW OF SYSTEMS: Constitutional: No documented fever, no chills, no night sweats. positive for significant weight gain No weakness, fatigue or lethargy. No daytime sleepiness. HEENT: No headache. No blurred vision or double vision, no loss of vision. No loss of Hearing, no ringing in the ears, no dizziness. No nasal drainage or congestion. No epistaxis. No sore throat. Lungs: positive for shortness of breath, occasional cough, no sputum product ion. No wheezing. Reports dyspnea with activity, positive for orthopneam and PND Cardiovascular: No chest pain, positive for lower extremity edema. positive for palpitations. positive for paroxysmal nocturnal dyspnea. positive for orthopnea. No lightheadedness or dizziness. No syncopal episodes. Abdominal: Reports no abdominal pain. positive for nausea, vomiting. No diarrhea. No constipation. No bloody or tarry stools reports loss of appetite. Genitourinary: No dysuria, increased frequency, urgency. No urinary retention. Musculoskeletal: No myalgias. positive for muscle weakness, positive for gait dysfunction, no frequent falls. positive for back pain. No neck pain. Integumentary: positive for lumbar wound that is covered with santyl , no lesions. No rash or pruritus. No unusual bruising. No change in hair or nails. Neurologic: No aphasia. No facial droop. No change in mentation. No head injury. No headache. No paralysis. No paresthesia. Psychiatric: No depression. No anxiety. No mood swings. Endocrine: positive for abnormal blood sugars. positive for weight change. PHYSICAL EXAMINATION: General: 67-year-old female laying down in bed in moderate respiratory distress HEENT: Head is atraumatic, normocephalic, pupils were equal round reactive to light and recommendation, extraocular muscle movement were intact, sclera nonicteric, conjunctivae were pale, mucous membranes of the mouth are somewhat dry. Neck: Supple, no JVP, normal carotid upstroke bilaterally, no lymphadenopathy. Chest: Decreased breath sounds at the bases, few rhonchi, positive for expiratory wheezes, no chest wall tenderness, minimal intercostal retractions. Heart: First heart sound is normal, second heart sound is normal tachycardic there is systolic ejection murmur 2/6 located in the left sternal border. Abdomen: Soft, nontender, nondistended, positive bowel sounds. 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 ASSESSMENT AND PLAN: 1. Acute on chronic hypoxemic respiratory failure due to pulmonary edema due to acute systolic heart failure as well as right lower lobes pulmonary emboli. Continue frusemide 40 mg po daily continue metoprolol 25 mg orally twice every day, continue losartan 100 mg orally once every day, continue heparin drip as well, echocardiogram did show evidence of mild global hypokinesia with ejection fraction of 50%, mild mitral regurgitation and tricuspid regurgitation without significant pulmonary hypertension, patient has been seen and evaluated by cardiology she'll be evaluated by pulmonary medicine as well, likely left heart catheterization in the next 24 hours . 2. Pulmonary edema/acute systolic heart failure Continue frusemide 40 mg po daily continue metoprolol 25 mg orally twice every day, continue losartan 100 mg orally once every day, reviewed echocardiogram. 3. Right subsegmental branches of the lower lobes pulmonary emboli continue heparin drip, continue oxygen, patient will need to be switched to Eliquis in 48 hours venous Doppler of both lower extremities. 4. One episode of atrial flutter with RVR. Please refer to the 12-lead EKG in the chart. Continue metoprolol 25 mg orally twice every day, continue heparin drip. 5. Hypertension and hypertensive cardiovascular disease. Continue patient on metoprolol 25 mg orally twice every day, losartan 100 mg orally once every day, continue amlodipine 5 mg orally once every day, monitor the patient very closely. 6. Hyperlipidemia. continue atorvastatin 20 mg orally once every day, monitor the patient the benefit, keep LDL 55-70. 7. Hypothyroidism. Continue patient on Synthroid 112 g orally once every day monitor TSH and free T4. 8. Diabetes mellitus type 1. on Levemir 50 units at bedtime along with Nov oLog 12 units plus the sliding scale insulin. 9. GERD with esophagitis and had a hernia. Continue patient on Protonix 40 mg once every day. 10. Obesity with obstructive sleep apnea and possible obesity hypoventilation syndrome patient will need to have a sleep study as an outpatient. 11. Vitamin D deficiency. Continue vitamin D3 2000 units once every day. 12. History of kidney stones. Continue calcium citrate twice a day set of 3 times a day due to hyperkalemia. 13. DVT prophylaxis. Continue patient on heparin drip. 14. GI prophylaxis. Continue PPI. 15. Lumbar dehiscence phoned after surgery at [facility] postlaminectomy continue with local wound care with Santyl every day. 16. Guarded prognosis. Objective - Vital Signs Vital signs: Vital Signs Temp 98.1 F 10/13/22 08:00 Pulse 68 10/13/22 08:00 Resp 18 10/13/22 08:00 BP 120/59 10/13/22 08:00 Pulse Ox 99 10/13/22 08:00 FiO2 Intake & Output 10/12/22 10/13/22 10/13/22 18:59 06:59 18:59 Intake Total 1949.342 Output Total 900 Balance 1949.342 -900 Weight 114 kg 115.3 kg Intake: Intake, IV Titration 89.342 Amount Heparin Sod,Pork in 0.45% 89.342 NaCl 25,000 unit In 0.45 % NaCl 1 250ml.bag @ 8.48 UNITS/KG/HR 10.001 mls/ hr IV .Q24H NATHAN Rx#: [id number] Oral 1860 Output: Urine 900 Other: Voiding Method External Catheter External Catheter External Catheter # Voids 1 - Labs CBC & Chem 7: 10/13/22 08:28 10/13/22 08:28 Labs: Abnormal Lab Results - Last 24 Hours (Table) 10/12/22 10/12/22 10/12/22 Range/Units 11:17 11:45 14:46 WBC (3.8-10.6) k/uL RBC (3.80-5.40) m/uL Hgb (11.4-16.0) gm/dL Hct (34.0-46.0) % Neutrophils # (1.3-7.7) k/uL APTT 32.8 H (22.0-30.0) sec Chloride (98-107) mmol/L Carbon Dioxide (22-30) mmol/L BUN (7-17) mg/dL Creatinine (0.52-1.04) mg/dL Glucose (74-99) mg/dL POC Glucose (mg/dL) 332 H (70-110) mg/dL AST (14-36) U/L Troponin I 4.980 H* (0.000-0.034) ng/mL Albumin (3.5-5.0) g/dL 10/12/22 10/12/22 10/12/22 Range/Units 16:48 19:50 19:55 WBC (3.8-10.6) k/uL RBC (3.80-5.40) m/uL Hgb (11.4-16.0) gm/dL Hct (34.0-46.0) % Neutrophils # (1.3-7.7) k/uL APTT 47.6 H (22.0-30.0) sec Chloride (98-107) mmol/L Carbon Dioxide (22-30) mmol/L BUN (7-17) mg/dL Creatinine (0.52-1.04) mg/dL Glucose (74-99) mg/dL POC Glucose (mg/dL) 233 H 196 H (70-110) mg/dL AST (14-36) U/L Troponin I (0.000-0.034) ng/mL Albumin (3.5-5.0) g/dL 10/12/22 10/13/22 10/13/22 Range/Units 21:45 02:07 05:52 WBC (3.8-10.6) k/uL RBC (3.80-5.40) m/uL Hgb (11.4-16.0) gm/dL Hct (34.0-46.0) % Neutrophils # (1.3-7.7) k/uL APTT (22.0-30.0) sec Chloride (98-107) mmol/L Carbon Dioxide (22-30) mmol/L BUN (7-17) mg/dL Creatinine (0.52-1.04) mg/dL Glucose (74-99) mg/dL POC Glucose (mg/dL) 174 H 193 H (70-110) mg/dL AST (14-36) U/L Troponin I 4.140 H* (0.000-0.034) ng/mL Albumin (3.5-5.0) g/dL 10/13/22 10/13/22 10/13/22 Range/Units 08:28 08:28 08:28 WBC 12.0 H (3.8-10.6) k/uL RBC 3.12 L (3.80-5.40) m/uL Hgb 8.3 L (11.4-16.0) gm/dL Hct 26.6 L (34.0-46.0) % Neutrophils # 9.1 H (1.3-7.7) k/uL APTT 53.0 H (22.0-30.0) sec Chloride 97 L (98-107) mmol/L Carbon Dioxide >40 H* (22-30) mmol/L BUN 46 H (7-17) mg/dL Creatinine 1.15 H (0.52-1.04) mg/dL Glucose 125 H (74-99) mg/dL POC Glucose (mg/dL) (70-110) mg/dL AST 39 H (14-36) U/L Troponin I (0.000-0.034) ng/mL Albumin 3.4 L (3.5-5.0) g/dL Microbiology - Last 24 Hours (Table) 10/11/22 09:46 Blood Culture - Preliminary Blood No Growth after 24 hours 10/11/22 09:46 Blood Culture - Preliminary Blood No Growth after 24 hours
[2022-10-13] MEDS ORDERED: VERAPAMIL 2.5 MG/ML 2 ML AMP ONE (11:13)
[2022-10-13] MEDS ORDERED: HEPARIN SODIUM 1,000 UN/ML (10ML VL) ONE ×2 (11:13→13:54)
[2022-10-13] MEDS ORDERED: fentaNYL (PF) 50 MCG/ML 2 ML AMP ONE ×2 (11:13→13:54)
[2022-10-13] MEDS ORDERED: ASPIRIN 325 MG TAB ONE (11:21)
[2022-10-13] MEDS ORDERED: SODIUM CHLORIDE 0.9% 1,000 ML IV ONE ×3 (11:25→14:05)
[2022-10-13] MEDS ORDERED: ASPIRIN 325 MG TAB PO ONE (11:30)
[2022-10-13] MEDS ORDERED: fentaNYL (PF) 50 MCG/1 ML VIAL IV ONE (12:02)
[2022-10-13] MEDS ORDERED: MIDAZOLAM 2 MG/2 ML VIAL IV ONE (12:02)
[2022-10-13] MEDS ORDERED: LIDOCAINE 1% INJ 10MG/ML (5 ML VIAL-PF) SQ ONE (12:02)
[2022-10-13] MEDS ORDERED: LIDOCAINE 1% INJ 10MG/ML (20 ML MDV) ONE ×2 (12:08→13:54)
[2022-10-13] MEDS ORDERED: VERAPAMIL SYRINGE (5 MG/10 ML) INTRAARTER ONE (12:12)
[2022-10-13] MEDS: HEPARIN SODIUM 1,000 UN/ML (10ML VL) IV ONE ×4 (12:16→12:57)
[2022-10-13] MEDS ORDERED: TICAGRELOR 90 MG TAB ONE (12:25)
[2022-10-13] MEDS ORDERED: TICAGRELOR 90 MG TAB PO ONE (12:28)
[2022-10-13] MEDS ORDERED: IOPAMIDOL-370 100ML BTL INJ ONE ×2 (12:41→12:56)
[2022-10-13 12:56] LABS: Glucose,Whole Blood 178 mg/dL (70-110)
[2022-10-13] MEDS ORDERED: RX INFO: IV CONTRAST WAS GIVEN 1 EACH MISC MISCELLANE PRN (13:10)
[2022-10-13] MEDS ORDERED: ZOLPIDEM 5 MG TAB PO PRN (13:10)
[2022-10-13] MEDS ORDERED: MAG HYDROX/AL HYDROX/SIMETH 30 ML CUP PO PRN (13:10)
[2022-10-13] MEDS ORDERED: ATROPINE SULFATE 0.1 MG/ML 10ML SYRINGE IV PRN (13:10)
[2022-10-13] MEDS ORDERED: NITROGLYCERIN SL TABS 0.4 MG TAB SUBLINGUAL PRN (13:10)
--- NOTE | 2022-10-13 13:10 | P.PRCINT ---
Percutaneous Coronary Int. - Percutaneous Coronary Intervention Percutaneous Coronary Intervention: PROCEDURES PERFORMED: Left heart catheterization, bilateral coronary angiography, PCI proximal LAD with a 3.0 x 15mm Xience GONZÁLEZ, post dilated proximally with a 3.25mm NC balloon proximally INDICATION: NSTEMI CONSENT:I have discussed the risks, benefits and alternative therapies for the above-mentioned procedure and for both sedation/analgesia as well as necessary blood product administration, if indicated, as they pertain to this patient. The patient has indicated understanding and acceptance of the risks and procedures discussed. PROCEDURE: After the risks, benefits and alternatives of the above mentioned p rocedure explained in detail with the patient, informed consent was obtained. Patient was taken to the catheterization lab and prepped and draped in usual fashion. 1% lidocaine was used to anesthetize the right ulnar artery with the right radial artery diminutive on ultrasound. A 6-Hong Konger sheath was placed in the right ulnar artery using modified Seldinger technique. Left coronary angiography was performed with a 5-Hong Konger JL 3.5 catheter and right coronary angiography was performed with a 5-Hong Konger JR5 catheter in various views. A 5- [place] Konger FR5 catheter was inserted into the left ventricle and pressure measurements were obtained. The decision was made to perform PCI of the proximal LAD. Heparin was given. A 6-H[place] Konger CLS 3.5 guide disease to engage the left main. A 0.014 BMW wire was advanced into the distal LAD. Predilation was performed with a 2.5 x 8 mm and then a 2.75 x 12 mm noncompliant balloon. Next a 3.0 x 15 mm Xience GONZÁLEZ was placed in the proximal LAD. The proximal and midportion of the stent were postdilated with a 3.25 noncompliant balloon. The wire was pulled and final cholangiogram were performed. Pre-intervention there was 90% proximal LAD stenosis with MARLENY 3 flow and postintervention there was less than 10% stenosis with MARLENY 3 flow. There was a more distal diffuse mid LAD 20-50% stenosis felt best treated medically. The right radial sheath was removed and a TR band was placed with hemostasis achieved. The patient tolerated the procedure well. Patient was transported back to the post catheterization holding area in stable condition. Conscious Sedation: Patient was monitored under the direct supervision of vision of myself for conscious sedation using Versed and fentanyl for a total duration of 63 minutes HEMODYNAMICS: Aorta: 157/74 LV: 152, 15, LVEDP 45 SELECTIVE CORONARY ARTERIOGRAPHY: LEFT MAIN: The left main is a large caliber vessel which bifurcates into the LAD and circumflex. There is no significant stenosis. LEFT ANTERIOR DESCENDING CORONARY ARTERY: LAD is a large caliber vessel which wraps around to the apex. There is a proximal LAD just after a small caliber diagonal 1 branch 90% stenosis. Diagonal 1 is small caliber and has a proximal 70% stenosis. Diagonal 2 is moderate caliber and has a 30-40% stenosis just distal to diagonal 2 branch. Mid LAD has a 40-50% stenosis. Otherwise there are mild luminal irregularities. LEFT CIRCUMFLEX CORONARY ARTERY: Left circumflex is a moderate caliber vessel. OM1 is moderate caliber and has mild luminal irregularities. There is a superior branch of OM1 which appears either small or subtotally occluded. There are mild luminal irregularities of circumflex. RIGHT CORONARY ARTERY: The right coronary artery is a small to moderate caliber vessel which gives off a PDA and PLV branch and is the dominant vessel. There is a proximal RCA 30-40% stenosis as well as PLV 30% stenosis. FINAL IMPRESSION: 1. CAD as described above including 90% proximal LAD stenosis, 70% diagonal 1 stenosis, mid LAD 40-50% stenosis, RCA 30-40% stenosis. 2. S/p PCI proximal LAD with a 3.0 x 15mm Xience GONZÁLEZ, post dilated proximally with a 3.25mm NC balloon proximally 3. Extremely elevated left sided filling pressures PLAN: 1. Aggressive risk factor modification per most recent ACC/AHA guidelines. 2. Continue dual antiplatelets with aspirin and Brilinta for 12 months. If patient receiving anticoagulation for questionable PE we will proceed with Eliquis and Brilinta.
[2022-10-13 13:34] LABS: Glucose,Whole Blood 202 mg/dL (70-110)
[2022-10-13] MEDS ORDERED: NOREPINEPHRIN 4 MG-0.9% NS PMX 4 MG/250 ML ML IV ONE (13:49)
[2022-10-13] MEDS ORDERED: LIDOCAINE 1% INJ 10MG/ML (30 ML VIAL-PF) SQ ONE (14:12)
[2022-10-13] MEDS: HEPARIN SODIUM 1,000 UN/ML (10ML VL) IVP ONE ×2 (14:23→14:43)
[2022-10-13] MEDS ORDERED: fentaNYL (PF) 50 MCG/ML 2 ML AMP IVP ONE (14:30)
[2022-10-13 14:31] LABS: Basophils % (A) 0 %; Eosinophils # (A) 0.1 k/uL (0-0.7); Eosinophils % (A) 1 %; HCT 22.6 % (34.0-46.0); HGB 7.1 gm/dL (11.4-16.0); Hypochromasia Marked; Lymphocytes # (A) 2.8 k/uL (1.0-4.8); Lymphocytes % (A) 25 %; MCH 26.8 pg (25.0-35.0); MCHC 31.3 g/dL (31.0-37.0); MCV 85.7 fL (80.0-100.0); Monocytes # (A) 0.6 k/uL (0-1.0); Monocytes % (A) 5 %; Neutrophils # (A) 7.6 k/uL (1.3-7.7); Neutrophils % (A) 67 %; Platelet Count 277 k/uL (150-450); RBC 2.64 m/uL (3.80-5.40); RDW 15.7 % (11.5-15.5); WBC 11.3 k/uL (3.8-10.6)
[2022-10-13] MEDS ORDERED: IOPAMIDOL-370 125ML BTL INJ ONE (14:54)
[2022-10-13 15:04] LABS: Basophils % (A) 0 %; Eosinophils # (A) 0.2 k/uL (0-0.7); Eosinophils % (A) 1 %; HCT 26.2 % (34.0-46.0); HGB 7.9 gm/dL (11.4-16.0); Hypochromasia Marked; Lymphocytes # (A) 1.8 k/uL (1.0-4.8); Lymphocytes % (A) 17 %; MCH 25.7 pg (25.0-35.0); MCHC 30.2 g/dL (31.0-37.0); MCV 85.1 fL (80.0-100.0); Mean Platelet Volume 8.2; Monocytes # (A) 0.6 k/uL (0-1.0); Monocytes % (A) 6 %; Neutrophils % (A) 75 %; Platelet Count 279 k/uL (150-450); RBC 3.08 m/uL (3.80-5.40); RDW 15.7 % (11.5-15.5); WBC 10.7 k/uL (3.8-10.6)
[2022-10-13 15:07] LABS: Potassium 4.9 mmol/L (3.5-5.1)
[2022-10-13 15:37] LABS: Glucose,Whole Blood 301 mg/dL (70-110)
[2022-10-13] MEDS: COLLAGENASE 250 UNIT/GM OINTMENT 30 GM TUBE TOPICAL SCH (15:56)
[2022-10-13] MEDS: HEPARIN SOD,PORK IN 0.45% NACL 25,000 UNIT in 0.45% NACL 1 250ML.BAG IV SCH (15:56)
--- NOTE | 2022-10-13 16:23 | P.PRCINT ---
Percutaneous Coronary Int. - Percutaneous Coronary Intervention Percutaneous Coronary Intervention: PROCEDURES PERFORMED: Left coronary angiography, PCI LAD with a 2.25 x 12mm Xience GONZÁLEZ, post dilated proximally with a 3.25mm NC balloon proximally, IVUS INDICATION: Hypotension, post PCI with concern of stent thrombosis HPI: Patient is a pleasant 67-year-old female who presented with acute onset of shortness breath without any real chest pain. She was found to have a non-STEMI with troponin up to 4 and concern of silent ischemia. She underwent heart catheterization with stenting earlier in the day of the proximal LAD. There was a distal edge 40-50% mid LAD stenosis felt best treated medically given diffuse disease throughout and stenosis at the level of a moderate caliber diagonal 2 branch. This was performed from a right ulnar approach. She developed hypotension with blood pressures in the 60s over 40s upon returning to her room and appeared pale and ill-appearing. EKG did not show any significant ST elevations however had some ST depressions and therefore STEMI alert was activated to facilitate Log Deck Tender. She denied any bleeding, hematochezia or melena. Blood work was drawn and pending. PROCEDURE: After the risks, benefits and alternatives of the above mentioned procedure explained in detail with the patient, informed consent was obtained. Patient was taken to the catheterization lab and prepped and draped in usual fashion. 1% lidocaine was used to anesthetize the right femoral area. A 6- Nigerian sheath was placed in the right femoral artery using modified Seldinger technique. Left coronary angiography was performed with a 6-Nigerian CLS 3.5 catheter. The decision was made to perform IVUS of the LAD. Heparin was given. A 0.014 whisper wire was advanced into the distal LAD. A 0.014 BMW wire was advanced into the distal diagonal 2 branch. IVUS was performed and showed diffuse calcified arteries with patent proximal to mid LAD stent with stent edge 50% stenosis and no dissection, no thrombus. Given concern of distal edge stent thrombosis which then recanalized the decision was made to perform PCI of the mid LAD. A 2.25 x 12 mm Xience GONZÁLEZ was placed overlapping the prior stent. The proximal portion of the stent and the original LAD stent was post dilated again with the 3.25mm NC balloon. The wire was pulled and final angiogram were performed. Pre-intervention there was 50% mid LAD stenosis with MARLENY 3 flow and postintervention there was less than 10% stenosis with MARLENY 3 flow. The right radial sheath was removed and a TR band was placed with hemostasis achieved. The patient tolerated the procedure well. Patient was transported back to the post catheterization holding area in stable condition. Conscious Sedation: Patient was monitored under the direct supervision of vision of myself for conscious sedation using Versed and fentanyl for a total duration of 47 minutes HEMODYNAMICS: Aorta: 110/67 SELECTIVE CORONARY ARTERIOGRAPHY: LEFT MAIN: The left main is a large caliber vessel which bifurcates into the LAD and circumflex. There is no significant stenosis. LEFT ANTERIOR DESCENDING CORONARY ARTERY: LAD is a large caliber vessel which wraps around to the apex. There is a proximal LAD just after a small caliber diagonal 1 branch 90% stenosis. Diagonal 1 is small caliber and has a proximal 70% stenosis. Diagonal 2 is moderate caliber and has a 30-40% stenosis just distal to diagonal 2 branch. Mid LAD has a 40-50% stenosis. Otherwise there are mild luminal irregularities. LEFT CIRCUMFLEX CORONARY ARTERY: Left circumflex is a moderate caliber vessel. OM1 is moderate caliber and has mild luminal irregularities. There is a superior branch of OM1 which appears either small or subtotally occluded. There are mild luminal irregularities of circumflex. RIGHT CORONARY ARTERY: The right coronary artery, was not imaged, see separate report FINAL IMPRESSION: 1. CAD as described above including mid LAD 50% stenosis s/p PCI mid LAD with a 2.25 x 12mm Xience GONZÁLEZ 2. Post stenting hypotension, improved by time reached laboratory animal care veterinarian felt likely related to stent thrombosis from distal stent edge stenosis PLAN: 1. Aggressive risk factor modification per most recent ACC/AHA guidelines. 2. Continue dual antiplatelets with aspirin and Brilinta for 12 months.
[2022-10-13] MEDS: ACETAMINOPHEN TAB 325 MG TAB PO PRN ×2 (16:33→23:19)
[2022-10-13] MEDS: SODIUM CHLORIDE 0.9% 1,000 ML in EMPTY BAG 1 BAG IV SCH (18:19)
[2022-10-13] MEDS: ONDANSETRON 4 MG/2 ML VIAL IVP PRN (18:29)
[2022-10-13 19:55] LABS: Glucose,Whole Blood 218 mg/dL (70-110)
[2022-10-13] MEDS: TICAGRELOR 90 MG TAB PO SCH (21:27)
[2022-10-13] MEDS: INSULIN DETEMIR (LEVEMIR) 100 UNIT/ML SYR SQ SCH (21:28)
[2022-10-13 23:12] LABS: Glucose,Whole Blood 77 mg/dL (70-110)
[2022-10-13 23:54] LABS: Glucose,Whole Blood 105 mg/dL (70-110)
[2022-10-14 03:04] LABS: Glucose,Whole Blood 94 mg/dL (70-110)
[2022-10-14] MEDS: ONDANSETRON 4 MG/2 ML VIAL IVP PRN (04:15)
[2022-10-14 06:02] LABS: Glucose,Whole Blood 85 mg/dL (70-110)
[2022-10-14] MEDS: INSULIN ASPART (NovoLOG) 100 UNIT/ML VIAL SQ SCH ×7 (06:02→20:19)
[2022-10-14] MEDS: ACETAMINOPHEN TAB 325 MG TAB PO PRN (06:12)
[2022-10-14] MEDS: LEVOTHYROXINE 112 MCG TAB PO SCH (06:13)
[2022-10-14 07:01] LABS: Basophils % (A) 0 %; Eosinophils # (A) 0.1 k/uL (0-0.7); Eosinophils % (A) 1 %; HCT 26.5 % (34.0-46.0); HGB 8.2 gm/dL (11.4-16.0); Hypochromasia Moderate; Lymphocytes # (A) 1.8 k/uL (1.0-4.8); Lymphocytes % (A) 19 %; MCH 26.2 pg (25.0-35.0); MCHC 30.8 g/dL (31.0-37.0); MCV 85.1 fL (80.0-100.0); Mean Platelet Volume 7.9; Monocytes # (A) 0.6 k/uL (0-1.0); Monocytes % (A) 7 %; Neutrophils # (A) 6.9 k/uL (1.3-7.7); Neutrophils % (A) 72 %; Platelet Count 260 k/uL (150-450); RBC 3.12 m/uL (3.80-5.40); RDW 15.7 % (11.5-15.5); WBC 9.5 k/uL (3.8-10.6)
[2022-10-14] MEDS ORDERED: HYDROmorphone 0.5 MG/0.5 ML SYRINGE IVP STA (07:43)
[2022-10-14 07:48] LABS: Albumin 3.1 g/dL (3.5-5.0); Calcium 8.1 mg/dL (8.4-10.2); Magnesium 1.7 mg/dL (1.6-2.3); Potassium 4.1 mmol/L (3.5-5.1); Total Bilirubin 0.4 mg/dL (0.2-1.3); Total Protein 6.5 g/dL (6.3-8.2)
[2022-10-14 07:52] LABS: Glucose,Whole Blood 130 mg/dL (70-110)
[2022-10-14] MEDS ORDERED: HYDROmorphone 1 MG/ML 1 ML SYRINGE IVP STA (08:10)
--- NOTE | 2022-10-14 08:15 | XR ---
EXAMINATION TYPE: XR chest 1V DATE OF EXAM: 10/14/2022 COMPARISON: 10/11/2022 HISTORY: 67-year-old female with CHF TECHNIQUE: Single frontal view of the chest is obtained. FINDINGS: Heart is mildly enlarged. Interstitial density remains but shows some improvement from lemuel or exam. The previous bilateral pleural effusions also show improvement. IMPRESSION: Mild cardiomegaly with improving pulmonary vascular congestion. Interval improvement in previous small pleural effusions as well.
[2022-10-14] MEDS ORDERED: HYDROmorphone 1 MG/ML 1 ML SYRINGE IVP PRN ×2 (08:33→20:21)
[2022-10-14] MEDS: METOCLOPRAMIDE 5 MG/ML 2 ML VIAL IVP PRN (08:45)
[2022-10-14] MEDS: LOSARTAN 50 MG TAB PO SCH (08:54)
[2022-10-14] MEDS: TICAGRELOR 90 MG TAB PO SCH ×2 (08:54→16:53)
[2022-10-14] MEDS: NITROGLYCERIN OINT 1 INCH/GM PACKET TOPICAL SCH (08:55)
[2022-10-14] MEDS: METOPROLOL TARTRATE 25 MG TAB PO SCH ×2 (09:06→20:19)
[2022-10-14] MEDS: FUROSEMIDE 40 MG TAB PO SCH (09:06)
[2022-10-14] MEDS: FAMOTIDINE 20 MG TAB PO SCH (09:06)
[2022-10-14] MEDS: PANTOPRAZOLE 40 MG/10 ML VIAL IVP SCH (09:07)
[2022-10-14] MEDS: ATORVASTATIN 20 MG TAB PO SCH (09:07)
--- NOTE | 2022-10-14 09:45 | US ---
EXAMINATION TYPE: US upper ext pseudo RT DATE OF EXAM: 10/14/2022 COMPARISON: NONE CLINICAL HISTORY: 67-year-old female RUE hematoma, s/p radial/ulnar access. Probable pseudo right uln ar artery s/p heart cath FINDINGS: Database Programmer notes: Pseudoaneurysm arising off of right ulnar artery= 1.3 x 0.9 x 0.6 cm Pseudoaneurysm Neck width= 1mm, Suspected pseudoaneurysm neck length= 1-2 mm IMPRESSION: Confirmation of a 1.3 x 0.9 x 0.6 cm pseudoaneurysm arising from the right ulnar artery. Short 1 to 2 mm long and narrow (1 mm wide) neck.
--- NOTE | 2022-10-14 10:06 | P.GSCN ---
History of Present Illness Consult date: 10/14/22 Reason for Consult: Right upper extremity hematoma Requesting physician: Teresa Fields History of present illness: This is a 67-year-old female who presented to the emergency department on 10/11/2022 with complaints of shortness of breath. She has a past medical history including diabetes, hypertension, kidney stones, TIA and recent back surgery in June on her lumbar spine done at the [facility]. Nilesh arently while she was in the hospital at that time she was admitted to the ICU with some grieving issues and went home with home oxygen. Since then she did have dehiscence of her wound. She's been having some lower extremity swelling. Chest x-ray showed cardiomegaly with pulmonary vascular congestion and small bilateral pleural effusion. CT angiogram of the chest was a limited exam due to motion artifact and unable to exclude pulmonary embolism, reported CHF with pulmonary edema. Patient had increased troponin with a non-ST elevation RI and went for cardiac catheterization yesterday, status post PCI proximal LAD, coronary artery disease including 90% proximal LAD stenosis, 70% diagonal 1 stenosis, mild LAD 40-50% stenosis, RCA 30-40% stenosis. Access was the right ulnar artery with right radial artery diminutive on ultrasound. 6-Italian sheath was placed in the right ulnar artery. Following the initial stenting, patient developed hypotension after returning to her room, she had ST depression and STEMI alert was activated and patient was brought back to the cardiac cardiac cath lab radiology technologist, S/p PCI to mid LAD, with improvement in hypotension. Today patient was having right upper extremity pain and swelling, vascular surgery was consulted for hematoma. Patient currently states she does have some right upper extremity pain, mostly at the wrist. She is able to move her right upper extremity hand and fingers. She currently denies any shortness of breath or chest pain. Denies any abdom inal pain, nausea or vomiting. She's been afebrile. WBC 9.5 hemoglobin 8.2 platelet count 260,000 sodium 138 potassium 4.1 BUN 35 creatinine 0.9 Review of Systems A 14 point review systems was completed all pertinent positives and negatives as stated in the HPI. Past Medical History Past Medical History: Diabetes Mellitus, Hypertension Additional Past Medical History / Comment(s): hypothyroid, kidney stone, GLUCOMA History of Any Multi-Drug Resistant Organisms: None Reported Past Surgical History: Back Surgery, Hysterectomy Additional Past Surgical History / Comment(s): kidney stones removed and stent CATARACTS REMOVED AND STENT PUT IN FOR GLUCOMA. 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 Past Anesthesia/Blood Transfusion Reactions: Previous Problems w/ Anesthesia, Postoperative Nausea & Vomiting (PONV) Past Psychological History: No Psychological Hx Reported Smoking Status: Never smoker Past Alcohol Use History: None Reported Past Drug Use History: None Reported - Past Family History Mother Family Medical History: No Reported History Father Additional Family Medical History / Comment(s): Heart history Medications and Allergies Home Medications Medication Instructions Recorded Confirmed Type Metoprolol Tartrate [Lopressor] 25 mg PO BID 01/31/14 10/11/22 History Insulin Aspart (For Pump) [NovoLOG 0.01 unit SQ-PUMP CONTINUOUS 05/16/19 10/11/22 History (For Pump)] Levothyroxine Sodium [Synthroid] 112 mcg PO DAILY 05/16/19 10/11/22 History Losartan Potassium 100 mg PO DAILY 05/16/19 10/11/22 History amLODIPine [Norvasc] 5 mg PO DAILY 05/16/19 10/11/22 History Famotidine [Pepcid] 20 mg PO BID 04/26/20 10/11/22 History Collagenase [Santyl Ointment] 1 applic TOPICAL DAILY 10/11/22 10/11/22 History Potassium Citrate [Potassium 10 meq PO TID 10/11/22 10/11/22 History Citrate ER] Rosuvastatin [Crestor] 10 mg PO DAILY 10/11/22 10/11/22 History Allergies Allergy/AdvReac Type Severity Reaction Status Date / Time No Known Allergies Allergy Verified 10/11/22 11:23 Surgical - Exam Vital Signs Temp Pulse Resp BP Pulse Ox 97.7 F 113 H 26 H 134/107 90 L 10/11/22 09:16 10/11/22 09:16 10/11/22 09:16 10/11/22 09:16 10/11/22 09:16 General appearance: The patient is alert, oriented, appears in no acute distress. HET: Head is normocephalic and atraumatic. Pupils are equal and reactive. Neck: Supple. Trachea midline. Heart: Regular. Lungs: Equal expansion, normal respiratory effort. Abdomen: Soft, nontender, nondistended. Extremities: Right upper extremity with swelling, tender to palpation, ulnar access with hematoma, nonpalpable radial pulse. Sensorimotor intact, good capillary refill. Neurological: No focal deficits. Alert and oriented. Results - Labs 10/14/22 05:39 10/14/22 05:39 Abnormal Lab Results - Last 24 Hours (Table) 10/13/22 10/13/22 10/13/22 Range/Units 08:28 08:28 08:28 WBC 12.0 H (3.8-10.6) k/uL RBC 3.12 L (3.80-5.40) m/uL Hgb 8.3 L (11.4-16.0) gm/dL Hct 26.6 L (34.0-46.0) % MCHC (31.0-37.0) g/dL RDW (11.5-15.5) % Neutrophils # 9.1 H (1.3-7.7) k/uL APTT 53.0 H (22.0-30.0) sec Sodium (137-145) mmol/L Chloride 97 L (98-107) mmol/L Carbon Dioxide >40 H* (22-30) mmol/L BUN 46 H (7-17) mg/dL Creatinine 1.15 H (0.52-1.04) mg/dL Glucose 125 H (74-99) mg/dL POC Glucose (mg/dL) (70-110) mg/dL Plasma Lactic Acid Kilo (0.7-2.0) mmol/L Calcium (8.4-10.2) mg/dL AST 39 H (14-36) U/L Albumin 3.4 L (3.5-5.0) g/dL 10/13/22 10/13/22 10/13/22 Range/Units 12:55 13:32 14:27 WBC 11.3 H (3.8-10.6) k/uL RBC 2.64 L (3.80-5.40) m/uL Hgb 7.1 L (11.4-16.0) gm/dL Hct 22.6 L (34.0-46.0) % MCHC (31.0-37.0) g/dL RDW 15.7 H (11.5-15.5) % Neutrophils # (1.3-7.7) k/uL APTT (22.0-30.0) sec Sodium (137-145) mmol/L Chloride (98-107) mmol/L Carbon Dioxide (22-30) mmol/L BUN (7-17) mg/dL Creatinine (0.52-1.04) mg/dL Glucose (74-99) mg/dL POC Glucose (mg/dL) 178 H 202 H (70-110) mg/dL Plasma Lactic Acid Kilo (0.7-2.0) mmol/L Calcium (8.4-10.2) mg/dL AST (14-36) U/L Albumin (3.5-5.0) g/dL 10/13/22 10/13/22 10/13/22 Range/Units 14:27 14:27 14:52 WBC 10.7 H (3.8-10.6) k/uL RBC 3.08 L (3.80-5.40) m/uL Hgb 7.9 L (11.4-16.0) gm/dL Hct 26.2 L (34.0-46.0) % MCHC 30.2 L (31.0-37.0) g/dL RDW 15.7 H (11.5-15.5) % Neutrophils # 8.0 H (1.3-7.7) k/uL APTT (22.0-30.0) sec Sodium 133 L (137-145) mmol/L Chloride 93 L (98-107) mmol/L Carbon Dioxide 39 H (22-30) mmol/L BUN 43 H (7-17) mg/dL Creatinine 1.08 H (0.52-1.04) mg/dL Glucose (74-99) mg/dL POC Glucose (mg/dL) (70-110) mg/dL Plasma Lactic Acid Kilo 2.7 H* (0.7-2.0) mmol/L Calcium (8.4-10.2) mg/dL AST (14-36) U/L Albumin (3.5-5.0) g/dL 10/13/22 10/13/22 10/14/22 Range/Units 15:35 19:53 05:39 WBC (3.8-10.6) k/uL RBC 3.12 L (3.80-5.40) m/uL Hgb 8.2 L (11.4-16.0) gm/dL Hct 26.5 L (34.0-46.0) % MCHC 30.8 L (31.0-37.0) g/dL RDW 15.7 H (11.5-15.5) % Neutrophils # (1.3-7.7) k/uL APTT (22.0-30.0) sec Sodium (137-145) mmol/L Chloride (98-107) mmol/L Carbon Dioxide (22-30) mmol/L BUN (7-17) mg/dL Creatinine (0.52-1.04) mg/dL Glucose (74-99) mg/dL POC Glucose (mg/dL) 301 H 218 H (70-110) mg/dL Plasma Lactic Acid Kilo (0.7-2.0) mmol/L Calcium (8.4-10.2) mg/dL AST (14-36) U/L Albumin (3.5-5.0) g/dL 10/14/22 10/14/22 Range/Units 05:39 07:51 WBC (3.8-10.6) k/uL RBC (3.80-5.40) m/uL Hgb (11.4-16.0) gm/dL Hct (34.0-46.0) % MCHC (31.0-37.0) g/dL RDW (11.5-15.5) % Neutrophils # (1.3-7.7) k/uL APTT (22.0-30.0) sec Sodium (137-145) mmol/L Chloride 97 L (98-107) mmol/L Carbon Dioxide 38 H (22-30) mmol/L BUN 35 H (7-17) mg/dL Creatinine (0.52-1.04) mg/dL Glucose (74-99) mg/dL POC Glucose (mg/dL) 130 H (70-110) mg/dL Plasma Lactic Acid Kilo (0.7-2.0) mmol/L Calcium 8.1 L (8.4-10.2) mg/dL AST 53 H (14-36) U/L Albumin 3.1 L (3.5-5.0) g/dL Microbiology - Last 24 Hours (Table) 10/11/22 09:46 Blood Culture - Preliminary Blood No Growth after 48 hours 10/11/22 09:46 Blood Culture - Preliminary Blood No Growth after 48 hours Diabetes panel 10/13/22 10/13/22 10/14/22 Range/Units 08:28 14:27 05:39 Sodium 138 133 L 138 (137-145) mmol/L Potassium 5.1 4.9 4.1 (3.5-5.1) mmol/L Chloride 97 L 93 L 97 L (98-107) mmol/L Carbon Dioxide >40 H* 39 H 38 H (22-30) mmol/L BUN 46 H 43 H 35 H (7-17) mg/dL Creatinine 1.15 H 1.08 H 0.99 (0.52-1.04) mg/dL Glucose 125 H 79 (74-99) mg/dL Calcium 8.8 8.1 L (8.4-10.2) mg/dL AST 39 H 53 H (14-36) U/L ALT 17 23 (4-34) U/L Alkaline Phosphatase 56 61 (38-126) U/L Total Protein 7.0 6.5 (6.3-8.2) g/dL Albumin 3.4 L 3.1 L (3.5-5.0) g/dL Calcium panel 10/13/22 10/14/22 Range/Units 08:28 05:39 Calcium 8.8 8.1 L (8.4-10.2) mg/dL Albumin 3.4 L 3.1 L (3.5-5.0) g/dL Pituitary panel 10/13/22 10/13/22 10/14/22 Range/Units 08:28 14:27 05:39 Sodium 138 133 L 138 (137-145) mmol/L Potassium 5.1 4.9 4.1 (3.5-5.1) mmol/L Chloride 97 L 93 L 97 L (98-107) mmol/L Carbon Dioxide >40 H* 39 H 38 H (22-30) mmol/L BUN 46 H 43 H 35 H (7-17) mg/dL Creatinine 1.15 H 1.08 H 0.99 (0.52-1.04) mg/dL Glucose 125 H 79 (74-99) mg/dL Calcium 8.8 8.1 L (8.4-10.2) mg/dL Adrenal panel 10/13/22 10/13/22 10/14/22 Range/Units 08:28 14:27 05:39 Sodium 138 133 L 138 (137-145) mmol/L Potassium 5.1 4.9 4.1 (3.5-5.1) mmol/L Chloride 97 L 93 L 97 L (98-107) mmol/L Carbon Dioxide >40 H* 39 H 38 H (22-30) mmol/L BUN 46 H 43 H 35 H (7-17) mg/dL Creatinine 1.15 H 1.08 H 0.99 (0.52-1.04) mg/dL Glucose 125 H 79 (74-99) mg/dL Calcium 8.8 8.1 L (8.4-10.2) mg/dL Total Bilirubin 0.4 0.4 (0.2-1.3) mg/dL AST 39 H 53 H (14-36) U/L ALT 17 23 (4-34) U/L Alkaline Phosphatase 56 61 (38-126) U/L Total Protein 7.0 6.5 (6.3-8.2) g/dL Albumin 3.4 L 3.1 L (3.5-5.0) g/dL Assessment and Plan Assessment: 1. Right upper extremity hematoma status post ulnar artery access for cardiac catheterization 2. NSTEMI status post PCI proximal LAD 10/13/2022 3. Hypotension post PCI 4. Shortness of breath 5. Possible pulmonary embolism 6. Diabetes mellitus 7. History of TIA 8. Recent lumbar surgery done in June 2022, with nonhealing wound Plan: 1. Nothing by mouth after midnight 2. Keep pressure dressing to right ulnar artery access site 3. Ultrasound right upper extremity for pseudo-aneurysm ordered and reviewed. Small Pseudoaneurysm confirmed. No plan on surgical intervention at this time, continue to keep pressure on access site. Will reevaluate tomorrow. 4. Hold anticoagulation 5. Repeat ultrasound right upper extremity for pseudoaneurysm in the morning 6. Further recommendations forthcoming from vascular surgeon based on ultras ound 7. Stat type and screen ordered Thank you for this consultation, we will continue to follow. The impression and plan of care has been dictated as directed. Dr. Ayala I performed a history and examination of this patient, discussed the same with the dictator. I agree with the dictator's note ,documented as a scribe. Any additional findings or plans will be noted.
--- NOTE | 2022-10-14 10:30 | P.CNPUL ---
History of Present Illness Consult date: 10/14/22 Requesting physician: Teresa Fields Reason for consult: pulmonary embolism Chief complaint: Shortness of breath History of present illness: This is a pleasant 67-year-old female patient with a known history of obesity, diabetes mellitus, hypertension, nonsmoker. She had had a laminectomy done at the [facility] in June 2022 and a follow-up surgery again in 07/31/2022. Since that time she had been having some issues with shortness of breath but more recently they have become increasingly worse and came to the emergency room on 10/11/2022. Chest x-ray showed evidence of cardiomegaly, pulmonary vascular congestion and small bilateral pleural effusions. CT angiogram was very limited due to breathing motion and noise from patient's body habitus. Could not exclude segmental branch pulmonary emboli to the basilar right lower lobe. Evidence of CHF with developing interstitial pulmonary edema. Small bilateral pleural effusions. Moderate-sized hiatal hernia. Hepatic dawson atosis. Echocardiogram revealed preserved left ventricular systolic function with ejection fraction of 50%. Grade 2 diastolic dysfunction. Dopplers of the bilateral lower extremities were negative for DVT. She was found to have elevated troponin peaked at 4.9. White count 9.5. Hemoglobin 8.2. Platelets 260. Sodium 138. Potassium 4.1. BUN 35. Creatinine 0.99. I curb 38. Glucose 1:30. ProBNP 6040. Yesterday 10/13/2022 she had undergone a left heart catheterization a right radial approach with PCI to the proximal LAD at approximately 1200. At approximately 1345 and A team was called due to hypotension and the patient was taken back to the [facility] for concerns regarding in-stent thrombosis. She was found to have post stenting hypotension which improved by the time she got to the [employer] [facility] and a repeat cardiac catheterization and IVUS was performed through the right femoral artery felt likely related to stent thrombosis from distal stent edge stenosis. She was brought into the intensive care unit for closer observation. She is seen today in consultation in the ICU. She is currently awake and alert and on a Ventimask at 50%. She has 0.9 normal saline at 20 mL per hour. Was noted to have edema/hematoma over the right radial site and the ultrasound did reveal confir mation of of 1.3 x 0.9 x 0.6 cm pseudoaneurysm involving the right ulnar artery. She is currently on Brilinta. Review of Systems REVIEW OF SYSTEMS: CONSTITUTIONAL: Denies any recent significant weight loss or weight gain. EYES: Denies change in vision. EARS, NOSE, MOUTH, THROAT: Denies headaches, denies sore throat. CARDIOVASCULAR: Denies chest pain, palpitations or syncopal episodes. RESPIRATORY: Positive for shortness of breath, no cough, congestion or hemoptysis. GASTROINTESTINAL: Denies change in appetite, denies abdominal pain GENITOURINARY: Denies hematuria, denies infections. MUSKULOSKELETAL: Pain and swelling of the right radial area. INTEGUMENTARY: Denies rash, denies eczema. NEUROLOGICAL: Denies recent memory loss, no recent seizure activity. PSYCHIATRIC: Denies anxiety, denies depression. HEMATOLOGIC/LYMPHATIC: Denies anemia, denies enlarged lymph nodes. Past Medical History Past Medical History: Diabetes Mellitus, Hypertension Additional Past Medical History / Comment(s): hypothyroid, kidney stone, GLUCOMA History of Any Multi-Drug Resistant Organisms: None Reported Past Surgical History: Back Surgery, Hysterectomy Additional Past Surgical History / Comment(s): kidney stones removed and stent CATARACTS REMOVED AND STENT PUT IN FOR GLUCOMA. 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 Past Anesthesia/Blood Transfusion Reactions: Previous Problems w/ Anesthesia, Postoperative Nausea & Vomiting (PONV) Past Psychological History: No Psychological Hx Reported Smoking Status: Never smoker Past Alcohol Use History: None Reported Past Drug Use History: None Reported - Past Family History Mother Family Medical History: No Reported History Father Additional Family Medical History / Comment(s): Heart history Medications and Allergies Home Medications Medication Instructions Recorded Confirmed Type Metoprolol Tartrate [Lopressor] 25 mg PO BID 01/31/14 10/11/22 History Insulin Aspart (For Pump) [NovoLOG 0.01 unit SQ-PUMP CONTINUOUS 05/16/19 10/11/22 History (For Pump)] Levothyroxine Sodium [Synthroid] 112 mcg PO DAILY 05/16/19 10/11/22 History Losartan Potassium 100 mg PO DAILY 05/16/19 10/11/22 History amLODIPine [Norvasc] 5 mg PO DAILY 05/16/19 10/11/22 History Famotidine [Pepcid] 20 mg PO BID 04/26/20 10/11/22 History Collagenase [Santyl Ointment] 1 applic TOPICAL DAILY 10/11/22 10/11/22 History Potassium Citrate [Potassium 10 meq PO TID 10/11/22 10/11/22 History Citrate ER] Rosuvastatin [Crestor] 10 mg PO DAILY 10/11/22 10/11/22 History Allergies Allergy/AdvReac Type Severity Reaction Status Date / Time No Known Allergies Allergy Verified 10/11/22 11:23 Physical Exam Vitals: Vital Signs Temp Pulse Pulse Resp BP BP Pulse Ox 10/14/22 09:00 80 17 134/58 95 10/14/22 08:00 78 33 H 142/66 92 L 10/14/22 07:00 82 40 H 141/63 97 10/14/22 06:00 86 14 139/57 94 L 10/14/22 05:00 82 16 130/56 100 10/14/22 04:00 97.9 F 82 80 16 129/46 10/14/22 03:00 84 21 126/47 97 10/14/22 02:00 81 21 109/67 98 10/14/22 01:00 85 13 101/42 10/14/22 00:00 98.2 F 87 82 18 115/47 95 10/13/22 23:00 86 21 119/48 99 10/13/22 22:00 80 19 113/48 94 L 10/13/22 21:00 80 20 115/49 95 10/13/22 20:00 98.5 F 84 79 17 98 10/13/22 19:20 87 20 123/29 97 10/13/22 19:00 80 13 125/53 94 L 10/13/22 18:00 78 16 123/55 98 10/13/22 17:00 80 13 99/65 92 L 10/13/22 16:30 81 13 122/46 97 10/13/22 16:00 76 16 99/69 92 L 10/13/22 15:34 80 16 112/62 96 10/13/22 13:27 18 60/29 95 10/13/22 13:12 63 18 60/38 94 L FiO2 10/14/22 09:00 50 10/14/22 08:00 10/14/22 07:00 10/14/22 06:00 10/14/22 05:00 10/14/22 04:00 10/14/22 03:00 10/14/22 02:00 10/14/22 01:00 10/14/22 00:00 10/13/22 23:00 10/13/22 22:00 10/13/22 21:00 10/13/22 20:00 10/13/22 19:20 10/13/22 19:00 10/13/22 18:00 10/13/22 17:00 10/13/22 16:30 10/13/22 16:00 10/13/22 15:34 10/13/22 13:27 10/13/22 13:12 Intake and Output 10/13/22 10/14/22 10/14/22 22:59 06:59 14:59 Intake Total 120 480 40 Output Total 840 655 Balance -720 -175 40 Intake: IV 40 .9 20 40 Intake, IV Titration 120 180 Amount Sodium Chloride 0.9% 1, 120 180 000 ml @ 0 mls/hr IV .[facility] Rx#:[id number] Oral 300 Output: Urine 840 655 Other: Voiding Method Indwelling Catheter Indwelling Catheter Indwelling Catheter Weight 117.8 kg GENERAL EXAM: Alert, pleasant 67-year-old female, currently on 50% Ventimask, comfortable in no apparent distress. HEAD: Normocephalic. EYES: Normal reaction of pupils, equal size. NOSE: Clear with pink turbinates. THROAT: No erythema or exudates. NECK: No masses, no JVD. CHEST: No chest wall deformity. LUNGS: Equal air entry with crackles in the bilateral bases. CVS: S1 and S2 normal with no audible murmur, regular rhythm. ABDOMEN: No hepatosplenomegaly, normal bowel sounds, no guarding or rigidity. SPINE: No scoliosis or deformity SKIN: No rashes CENTRAL NERVOUS SYSTEM: No focal deficits, tone is normal in all 4 extremities. EXTREMITIES: Right radial hematoma. There is no peripheral edema. No clubbing, no cyanosis. Peripheral pulses are intact. Results - Laboratory Findings CBC and BMP: 10/14/22 05:39 10/14/22 05:39 PT/INR, D-dimer PT 10.1 sec (9.0-12.0) 10/11/22 09:46 INR 0.9 (<1.2) 10/11/22 09:46 D-Dimer 3.30 mg/L FEU (<0.60) H 10/11/22 09:46 Abnormal lab findings: Abnormal Labs 10/11/22 10/11/22 10/11/22 09:46 09:46 09:46 WBC RBC 3.61 L Hgb 9.5 L Hct 31.5 L MCHC 30.2 L RDW Neutrophils # Lymphocytes # APTT 19.9 L D-Dimer 3.30 H Sodium Potassium Chloride Carbon Dioxide 34 H BUN 19 H Creatinine Glucose 290 H POC Glucose (mg/dL) Plasma Lactic Acid Kilo Calcium Magnesium 1.4 L AST Troponin I Albumin 10/11/22 10/11/22 10/11/22 09:46 12:47 15:46 WBC RBC Hgb Hct MCHC RDW Neutrophils # Lymphocytes # APTT D-Dimer Sodium Potassium Chloride Carbon Dioxide BUN Creatinine Glucose POC Glucose (mg/dL) Plasma Lactic Acid Kilo 2.1 H* 4.4 H* 3.1 H* Calcium Magnesium AST Troponin I Albumin 10/11/22 10/11/22 10/11/22 16:19 19:21 19:21 WBC RBC Hgb Hct MCHC RDW Neutrophils # Lymphocytes # APTT 33.5 H D-Dimer Sodium Potassium Chloride Carbon Dioxide BUN Creatinine Glucose POC Glucose (mg/dL) 302 H Plasma Lactic Acid Kilo 2.4 H* Calcium Magnesium AST Troponin I Albumin 10/11/22 10/11/22 10/12/22 20:15 23:05 01:24 WBC RBC Hgb Hct MCHC RDW Neutrophils # Lymphocytes # APTT 101.0 H* D-Dimer Sodium Potassium Chloride Carbon Dioxide BUN Creatinine Glucose POC Glucose (mg/dL) 308 H Plasma Lactic Acid Kilo 2.1 H* Calcium Magnesium AST Troponin I Albumin 10/12/22 10/12/22 10/12/22 01:59 04:01 04:01 WBC RBC 3.26 L Hgb 8.8 L Hct 28.4 L MCHC 30.9 L RDW Neutrophils # 8.3 H Lymphocytes # 0.9 L APTT D-Dimer Sodium 136 L Potassium 5.2 H Chloride Carbon Dioxide 35 H BUN 26 H Creatinine Glucose 213 H POC Glucose (mg/dL) 210 H Plasma Lactic Acid Kilo Calcium Magnesium AST 41 H Troponin I Albumin 10/12/22 10/12/22 10/12/22 06:28 07:02 11:17 WBC RBC Hgb Hct MCHC RDW Neutrophils # Lymphocytes # APTT 36.8 H 32.8 H D-Dimer Sodium Potassium Chloride Carbon Dioxide BUN Creatinine Glucose POC Glucose (mg/dL) 287 H Plasma Lactic Acid Kilo Calcium Magnesium AST Troponin I Albumin 10/12/22 10/12/22 10/12/22 11:45 14:46 16:48 WBC RBC Hgb Hct MCHC RDW Neutrophils # Lymphocytes # APTT D-Dimer Sodium Potassium Chloride Carbon Dioxide BUN Creatinine Glucose POC Glucose (mg/dL) 332 H 233 H Plasma Lactic Acid Kilo Calcium Magnesium AST Troponin I 4.980 H* Albumin 10/12/22 10/12/22 10/12/22 19:50 19:55 21:45 WBC RBC Hgb Hct MCHC RDW Neutrophils # Lymphocytes # APTT 47.6 H D-Dimer Sodium Potassium Chloride Carbon Dioxide BUN Creatinine Glucose POC Glucose (mg/dL) 196 H Plasma Lactic Acid Kilo Calcium Magnesium AST Troponin I 4.140 H* Albumin 10/13/22 10/13/22 10/13/22 02:07 05:52 08:28 WBC 12.0 H RBC 3.12 L Hgb 8.3 L Hct 26.6 L MCHC RDW Neutrophils # 9.1 H Lymphocytes # APTT D-Dimer Sodium Potassium Chloride Carbon Dioxide BUN Creatinine Glucose POC Glucose (mg/dL) 174 H 193 H Plasma Lactic Acid Kilo Calcium Magnesium AST Troponin I Albumin 10/13/22 10/13/22 10/13/22 08:28 08:28 12:55 WBC RBC Hgb Hct MCHC RDW Neutrophils # Lymphocytes # APTT 53.0 H D-Dimer Sodium Potassium Chloride 97 L Carbon Dioxide >40 H* BUN 46 H Creatinine 1.15 H Glucose 125 H POC Glucose (mg/dL) 178 H Plasma Lactic Acid Kilo Calcium Magnesium AST 39 H Troponin I Albumin 3.4 L 10/13/22 10/13/22 10/13/22 13:32 14:27 14:27 WBC 11.3 H RBC 2.64 L Hgb 7.1 L Hct 22.6 L MCHC RDW 15.7 H Neutrophils # Lymphocytes # APTT D-Dimer Sodium 133 L Potassium Chloride 93 L Carbon Dioxide 39 H BUN 43 H Creatinine 1.08 H Glucose POC Glucose (mg/dL) 202 H Plasma Lactic Acid Kilo Calcium Magnesium AST Troponin I Albumin 10/13/22 10/13/22 10/13/22 14:27 14:52 15:35 WBC 10.7 H RBC 3.08 L Hgb 7.9 L Hct 26.2 L MCHC 30.2 L RDW 15.7 H Neutrophils # 8.0 H Lymphocytes # APTT D-Dimer Sodium Potassium Chloride Carbon Dioxide BUN Creatinine Glucose POC Glucose (mg/dL) 301 H Plasma Lactic Acid Kilo 2.7 H* Calcium Magnesium AST Troponin I Albumin 10/13/22 10/14/22 10/14/22 19:53 05:39 05:39 WBC RBC 3.12 L Hgb 8.2 L Hct 26.5 L MCHC 30.8 L RDW 15.7 H Neutrophils # Lymphocytes # APTT D-Dimer Sodium Potassium Chloride 97 L Carbon Dioxide 38 H BUN 35 H Creatinine Glucose POC Glucose (mg/dL) 218 H Plasma Lactic Acid Kilo Calcium 8.1 L Magnesium AST 53 H Troponin I Albumin 3.1 L 10/14/22 07:51 WBC RBC Hgb Hct MCHC RDW Neutrophils # Lymphocytes # APTT D-Dimer Sodium Potassium Chloride Carbon Dioxide BUN Creatinine Glucose POC Glucose (mg/dL) 130 H Plasma Lactic Acid Kilo Calcium Magnesium AST Troponin I Albumin - Diagnostic Findings Chest x-ray: image reviewed Assessment and Plan Assessment: Acute on chronic hypoxemic respiratory failure secondary to acute exacerbation of diastolic congestive heart failure with subsequent finding of a small segmental right lower lobe pulmonary emboli Non-ST segment elevation myocardial infarction Coronary artery disease status post stenting to the left anterior descending artery with post stenting and hypotension acquiring a return to the [employer] a short time later on 10/13/2022 Right radial hematoma/edema found to have a pseudoaneurysm Obesity Hypertension Hypothyroidism Hyperlipidemia Diabetes mellitus Gastric esophageal reflux disease Obstructive sleep apnea suspected Plan: The patient was seen and evaluated Chest x-ray, labs and medications reviewed Right radial artery pseudoaneurysm noted Continue to monitor closely here in the ICU Titrate the FiO2 as tolerated Continue diuretics Once cleared by other consultants and no further intervention required will be considered for anticoagulation We will continue to follow and make further recommendations based on her clinical status I have personally seen and examined the patient, performed the documentation and the assessment and plan as written. Number of minutes spent on the visit: 20.
[2022-10-14] MEDS: POTASSIUM CITRATE 10 MEQ TABLET.ER PO SCH ×2 (11:25→20:19)
[2022-10-14] MEDS ORDERED: Magnesium Replacement Protocol 1 EACH MISC MISCELLANE PRN (11:30)
--- NOTE | 2022-10-14 12:24 | CA ---
Transthoracic Echo Report Name: Cara Martinez Age: 67 Gender: F : 1955 Exam Date: 10/14/2022 09:12 Exam Location: [facility] Ht (in): 60 Wt (lb): 259 Ordering Physician: Juan Pablo Elkins DO ([email or web address]) Attending/Referring Phys: Pen Tester Seamus Morfin RDCS Procedure CPT: Indications: re: post PCI hypotension Cardiac Hx: Technical Quality: Poor Contrast 1: Lumason Total Dose (mL): 8 Contrast 2: Total Dose (mL): MEASUREMENTS (Male / Female) Normal Values 2D ECHO LV Diastolic Diameter PLAX 5.0 cm 4.2 - 5.9 / 3.9 - 5.3 cm LV Systolic Diameter PLAX 4.2 cm IVS Diastolic Thickness 0.8 cm 0.6 - 1.0 / 0.6 - 0.9 cm LVPW Diastolic Thickness 1.0 cm 0.6 - 1.0 / 0.6 - 0.9 cm LV Relative Wall Thickness 0.4 RV Internal Dim ED PLAX 3.5 cm LA Systolic Diameter LX 4.6 cm 3.0 - 4.0 / 2.7 - 3.8 cm FINDINGS Left Ventricle Left ventricular ejection fraction is estimated at 45-50 %. Anteroapical and anteroseptal hypokinesis Right Ventricle Normal right ventricular size. Right Atrium Normal right atrial size. Left Atrium Mild left atrial dilatation. Mitral Valve Mitral valve thickened. Aortic Valve Tricuspid Valve Structurally normal tricuspid valve. Pulmonic Valve Pulmonic valve not well visualized. Pericardium Normal pericardium. No pericardial effusion. Aorta Normal size aortic root and proximal ascending aorta. CONCLUSIONS Normal size with mild decrease in the ejection fraction with segmental wall motion abnormality Previewed by: Dr. Thiago Go MD (Electronically Signed) Final Date: 14 October 2022 12:24
[2022-10-14] MEDS ORDERED: MAGNESIUM SULFATE-D5W PMX 1 GM in DEXTROSE/WATER 1 100ML.BAG IVPB ONE (12:30)
[2022-10-14 12:34] LABS: Glucose,Whole Blood 185 mg/dL (70-110)
[2022-10-14] MEDS: SODIUM CHLORIDE 0.9% 1,000 ML in EMPTY BAG 1 BAG IV SCH (12:54)
--- NOTE | 2022-10-14 14:27 | P.PN ---
Subjective Progress Note Date: 10/14/22 HISTORY OF PRESENT ILLNESS: This is a 67-year-old female with a previous medical history signif icant for hypertension and hypertensive cardiovascular disease, hyperlipidemia, hypothyroidism, chronic gastroesophageal reflux disease with esophagitis, type 1 diabetes mellitus currently on insulin pump, vitamin D deficiency, diabetic neuropathy, patient also had history of spondylosis of the lumbar spine status post lumbar laminectomy back in 07/01/2022 followed by a wound dehiscence at the [facility] of the lumbar area and she ended up going back for another surgical intervention and generally fourth 2022 after that she was sent to [facility] on the [place] for physical therapy rehabilitation, she had a wound that has been treated through the wound care center for the [facility] and currently has been getting Santyl and the area has almost closed up, patient has been following with Dr. Trujillo as an outpatient for her insulin pump, and she stated that her sugar has been getting high recently she presented to the office on 10/08/2021 with increased shortness of breath has been on oxygen 3 L nasal cannula that she has been increased to 5-60 minute visit cannula, she has been complaining of increased swelling in both lower extremity is, she has been complaining of significant dyspnea on exertion, patient weight has been done up to 260, patient scheduled to go to see pulmonary to rule out obesity hypoventilation syndrome as well as obstructive sleep apnea and she was supposed to go see Dr. Foreman the office however she woke up in the morning and she was complaining of significant shortness breath, when her came to check on her she looked castro and she asked him to call 911, patient presented to the emergency department at [facility] she was found to have a significant pulmonary edema on a chest x-ray with bilateral pleural effusion, but because be elevated d-dimer, she underwent CTA of the chest that documented the pulmonary edema and possible pulmonary emboli in the right subsegmental lower lobes, and she was started on heparin drip as well as Lasix 40 mg IV push every 8 hours she was admitted to the hospital echogram was obtained, with cardiology consultation as well as pulmonary consultation 10/12: Patient is sitting up at the edge of the bed she is doing better today, she is up on oxygen to 6 L nasal cannula, she continues to diurese very well, mildly elevated potassium at 5.2, we'll decrease her potassium citrate to twice a day, continue heparin drip, continue metoprolol, continue losartan, continue to monitor the patient very closely, echocardiogram was done, venous Doppler of both lower extremity would be done to rule out any DVT, please keep the patient on heparin drip for now. 10/13: Patient is sitting up in bed and feeling better today, her troponin went up to 4.9, she was rolled into non-ST elevation DE, patient did have echocardiogram did show evidence of mild global hypokinesia with ejection fraction 50% mild mitral regurgitation and tricuspid regurgitation no pulmonary hypertension, continue patient on heparin drip, continue patient on metoprolol 25 mg orally twice every day, pulmonary consultation for evaluation of possible pulmonary emboli at the lower lobe segmental branches, patient will need to go for a heart catheter physician for evaluation of the coronary anatomy at this time, I would decrease her Lasix to 40 mg po daily 10/14: Yesterday, patient underwent left heart catheterization, PCI in the proximal LAD with stent post dilated proximal LAD with balloon. Subsequently patient developed hypotension with blood pressures in the 60s over 40s and returned to her room. To be pallid L. EKG showed significant ST elevations and some ST depressions therefore STEMI alert was activated and patient was returned to the [facility]. Post stenting hypotension was improved by the time she reached the [facility] felt likely related to stent thrombosis from distal stent edge stenosis. Cardiology has recommended dual antiplatelets with aspirin and Brilinta for 12 months. Patient is seen today in the intensive care unit. Chest x-ray this morning reveals mild cardiomegaly with improving pulmonary vascular congestion. Interval improvement in previous small pleural effusions as well. 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 Clinically a consult was placed with vascular surgery and they have evaluated the patient and there is no plan for surgical intervention at this time. Plan to repeat ultrasound of the right upper extremity tomorrow. Repeat blood work reveals hemoglobin of 8.2, WBC 9.5, platelet count 260. Sodium 138, potassium 4.1, BUN 35 and creatinine 0.99. ProBNP 6040. Magnesium 1.7. TSH 2.89 and free T4 1 0.83. Repeat echocardiogram reveals Re: Possible pulmonary embolism, ultrasound of bilateral lower extremities negative for DVT. Patient will be started on oral anticoagulation once cleared by consultants. REVIEW OF SYSTEMS: Constitutional: No documented fever, no chills, no night sweats. positive for significant weight gain No weakness, fatigue or lethargy. No daytime sleepiness. HEENT: No headache. No blurred vision or double vision, no loss of vision. No loss of Hearing, no ringing in the ears, no dizziness. No nasal drainage or congestion. No epistaxis. No sore throat. Lungs: positive for shortness of breath, occasional cough, no sputum production . No wheezing. Reports dyspnea with activity, positive for orthopneam and PND Cardiovascular: No chest pain, positive for lower extremity edema. positive for palpitations. positive for paroxysmal nocturnal dyspnea. positive for orthopnea. No lightheadedness or dizziness. No syncopal episodes. Abdominal: Reports no abdominal pain. positive for nausea, vomiting. No diarrhea. No constipation. No bloody or tarry stools reports loss of appetite. Genitourinary: No dysuria, increased frequency, urgency. No urinary retention. Musculoskeletal: No myalgias. positive for muscle weakness, positive for gait dysfunction, no frequent falls. positive for back pain. No neck pain. Mild di scomfort right wrist. Integumentary: positive for lumbar wound that is covered with santyl , no les ions. No rash or pruritus. No unusual bruising. No change in hair or nails. Neurologic: No aphasia. No facial droop. No change in mentation. No head injury. No headache. No paralysis. No paresthesia. Psychiatric: No depression. No anxiety. No mood swings. Endocrine: positive for abnormal blood sugars. positive for weight change. PHYSICAL EXAMINATION: General: 67-year-old female laying down in bed in moderate respiratory distress HEENT: Head is atraumatic, normocephalic, pupils were equal round reactive to light and recommendation, extraocular muscle movement were intact, sclera nonicteric, conjunctivae were pale, mucous membranes of the mouth are somewhat dry. Neck: Supple, no JVP, normal carotid upstroke bilaterally, no lymphadenopathy. Chest: Decreased breath sounds at the bases, few rhonchi, positive for expiratory wheezes, no chest wall tenderness, minimal intercostal retractions. Heart: First heart sound is normal, second heart sound is normal tachycardic there is systolic ejection murmur 2/6 located in the left sternal border. Abdomen: Soft, nontender, nondistended, positive bowel sounds. 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 ASSESSMENT AND PLAN: 1. Acute on chronic hypoxemic respiratory failure due to pulmonary edema due to acute systolic heart failure as well as right lower lobes pulmonary emboli. Continue furosemide 40 mg po daily, continue metoprolol 25 mg orally twice every day, continue losartan 100 mg orally once every day. Consult with cardiology and pulmonary medicine appreciated. 2. Pulmonary edema with acute diastolic heart failure Continue furosemide 40 mg po daily continue metoprolol 25 mg orally twice every day, continue losartan 100 mg orally once every day, reviewed echocardiogram. 3. Right subsegmental branches of the lower lobes pulmonary emboli. Hold on eliquis for now in case patient needs any further surgical intervention. 4. One episode of atrial flutter with RVR. Please refer to the 12-lead EKG in the chart. Continue metoprolol 25 mg orally twice every day. 5. Non-ST elevated myocardial infarction status post cardiac catheterization and PCI of the LAD and balloon to the proximal LAD. Continue patient on Brilinta 90 mg twice daily, aspirin 81 mg daily, atorvastatin 20 mg daily, metoprolol 25 mg twice daily. 6. Hypotension following PCI thought to be related to stent thrombosis from the distal stent edge. 7. Right upper extremity hematoma status post ulnar artery access for cardiac catheterization. Consult with vascular surgery appreciated, repeat ultrasound ordered for tomorrow morning. 8. Hypertension and hypertensive cardiovascular disease. Continue patient on metoprolol 25 mg orally twice every day, losartan 100 mg orally once every day, monitor the patient very closely. 9. Hyperlipidemia. continue atorvastatin 20 mg orally once every day, monitor the patient the benefit, keep LDL 55-70. 10. Hypothyroidism. Continue patient on Synthroid 112 g orally once every day. 11. Diabetes mellitus type 1. on Levemir 50 units at bedtime along with NovoLog 12 units plus the sliding scale insulin. 12. GERD with esophagitis and hiatal hernia. Continue patient on Protonix 40 mg once every day. 13. Obesity with obstructive sleep apnea and possible obesity hypoventilation syndrome patient will need to have a sleep study as an outpatient. 14. Vitamin D deficiency. Continue vitamin D3 2000 units once every day. 15. History of kidney stones. 16. DVT prophylaxis. Continue patient on heparin subcu. 14. GI prophylaxis. Continue PPI. 15. Lumbar dehiscence after surgery at [facility] postlaminectomy continue with local wound care with Santyl every day. 16. Guarded prognosis. Impression and plan of care have been directed as dictated by the signing physician. Lili Lancaster nurse practitioner acting as scribe for signing physician. Objective - Vital Signs Vital signs: Vital Signs Temp 97.9 F 10/14/22 04:00 Pulse 80 10/14/22 09:00 Resp 17 10/14/22 09:00 BP 134/58 10/14/22 09:00 Pulse Ox 95 10/14/22 09:00 FiO2 50 10/14/22 09:00 Intake & Output 10/13/22 10/14/22 10/14/22 18:59 06:59 18:59 Intake Total 1124.665 560 40 Output Total 1395 950 Balance -270.335 -390 40 Weight 117.8 kg Intake: IV 850 40 .9 20 40 Intake, IV Titration 274.665 260 Amount Heparin Sod,Pork in 0.45% 234.665 NaCl 25,000 unit In 0.45 % NaCl 1 250ml.bag @ 8.48 UNITS/KG/HR 10.001 mls/ hr IV .Q24H [facility] Rx#: [id number] Sodium Chloride 0.9% 1, 40 260 000 ml @ 0 mls/hr IV .STK -[facility] Rx#:[id number] Oral 300 Output: Urine 1395 950 Other: Voiding Method Indwelling Catheter Indwelling Catheter Indwelling Catheter - Labs CBC & Chem 7: 10/14/22 05:39 10/14/22 05:39 Labs: Abnormal Lab Results - Last 24 Hours (Table) 10/13/22 10/13/22 10/13/22 Range/Units 12:55 13:32 14:27 WBC 11.3 H (3.8-10.6) k/uL RBC 2.64 L (3.80-5.40) m/uL Hgb 7.1 L (11.4-16.0) gm/dL Hct 22.6 L (34.0-46.0) % MCHC (31.0-37.0) g/dL RDW 15.7 H (11.5-15.5) % Neutrophils # (1.3-7.7) k/uL Sodium (137-145) mmol/L Chloride (98-107) mmol/L Carbon Dioxide (22-30) mmol/L BUN (7-17) mg/dL Creatinine (0.52-1.04) mg/dL POC Glucose (mg/dL) 178 H 202 H (70-110) mg/dL Plasma Lactic Acid Kilo (0.7-2.0) mmol/L Calcium (8.4-10.2) mg/dL AST (14-36) U/L Albumin (3.5-5.0) g/dL 10/13/22 10/13/22 10/13/22 Range/Units 14:27 14:27 14:52 WBC 10.7 H (3.8-10.6) k/uL RBC 3.08 L (3.80-5.40) m/uL Hgb 7.9 L (11.4-16.0) gm/dL Hct 26.2 L (34.0-46.0) % MCHC 30.2 L (31.0-37.0) g/dL RDW 15.7 H (11.5-15.5) % Neutrophils # 8.0 H (1.3-7.7) k/uL Sodium 133 L (137-145) mmol/L Chloride 93 L (98-107) mmol/L Carbon Dioxide 39 H (22-30) mmol/L BUN 43 H (7-17) mg/dL Creatinine 1.08 H (0.52-1.04) mg/dL POC Glucose (mg/dL) (70-110) mg/dL Plasma Lactic Acid Kilo 2.7 H* (0.7-2.0) mmol/L Calcium (8.4-10.2) mg/dL AST (14-36) U/L Albumin (3.5-5.0) g/dL 10/13/22 10/13/22 10/14/22 Range/Units 15:35 19:53 05:39 WBC (3.8-10.6) k/uL RBC 3.12 L (3.80-5.40) m/uL Hgb 8.2 L (11.4-16.0) gm/dL Hct 26.5 L (34.0-46.0) % MCHC 30.8 L (31.0-37.0) g/dL RDW 15.7 H (11.5-15.5) % Neutrophils # (1.3-7.7) k/uL Sodium (137-145) mmol/L Chloride (98-107) mmol/L Carbon Dioxide (22-30) mmol/L BUN (7-17) mg/dL Creatinine (0.52-1.04) mg/dL POC Glucose (mg/dL) 301 H 218 H (70-110) mg/dL Plasma Lactic Acid Kilo (0.7-2.0) mmol/L Calcium (8.4-10.2) mg/dL AST (14-36) U/L Albumin (3.5-5.0) g/dL 10/14/22 10/14/22 Range/Units 05:39 07:51 WBC (3.8-10.6) k/uL RBC (3.80-5.40) m/uL Hgb (11.4-16.0) gm/dL Hct (34.0-46.0) % MCHC (31.0-37.0) g/dL RDW (11.5-15.5) % Neutrophils # (1.3-7.7) k/uL Sodium (137-145) mmol/L Chloride 97 L (98-107) mmol/L Carbon Dioxide 38 H (22-30) mmol/L BUN 35 H (7-17) mg/dL Creatinine (0.52-1.04) mg/dL POC Glucose (mg/dL) 130 H (70-110) mg/dL Plasma Lactic Acid Kilo (0.7-2.0) mmol/L Calcium 8.1 L (8.4-10.2) mg/dL AST 53 H (14-36) U/L Albumin 3.1 L (3.5-5.0) g/dL Microbiology - Last 24 Hours (Table) 10/11/22 09:46 Blood Culture - Preliminary Blood No Growth after 48 hours 10/11/22 09:46 Blood Culture - Preliminary Blood No Growth after 48 hours
--- NOTE | 2022-10-14 15:50 | PN ---
PROGRESS NOTE SUBJECTIVE: Ms. Martinez has been admitted with possible diagnosis of pulmonary embolism, also had [id number] [place] and went on to have stenting of LAD performed earlier at about 1 p.m. yesterday, and subsequently around 4 o'clock, she had a repeat cardiac catheterization, which revealed possible compromise and received an additional mid LAD stent at a 50% lesion. Initial procedure was performed from the right ulnar approach and the subsequent from the right femoral approach. She now has pain in her right radial/ulnar intervention site, and Dr. Ayala is seeing the patient. Possibility of a pseudoaneurysm is being considered. She is going to have a formal ultrasound of the right radial site, both ulnar and radial arteries. If necessary, intervention for this will be performed. We will hold off the anticoagulation for now. She did receive the Brilinta and aspirin yesterday. We will hold it for now, await formal ultrasound and then subsequent intervention. The patient at the time of my evaluation complains of pain. Hemodynamically, she is stable. OBJECTIVE: HEART: S1 and S2 heard normally. Short systolic murmur noted. LUNGS: Reveal diminished air entry. ABDOMEN: Unchanged. LOWER EXTREMITIES: Unchanged. PLAN: To obtain ultrasound of the right upper extremity at the site of intervention in the right ulnar artery. Resume some of her medications, watch her pressure closely, and see how she does. Anticoagulation is being held, and we will hold Brilinta this morning and make a decision for this evening after ultrasound. I discussed with the patient. I also spoke to Dr. Ayala. Prognosis remains guarded. MMODL / IJN: [id number] /
[2022-10-14 17:27] LABS: Glucose,Whole Blood 303 mg/dL (70-110)
[2022-10-14] MEDS: COLLAGENASE 250 UNIT/GM OINTMENT 30 GM TUBE TOPICAL SCH (19:15)
[2022-10-14 20:07] LABS: Glucose,Whole Blood 387 mg/dL (70-110)
[2022-10-14] MEDS: INSULIN DETEMIR (LEVEMIR) 100 UNIT/ML SYR SQ SCH (20:19)
[2022-10-14] MEDS: HYDROmorphone 1 MG/ML 1 ML SYRINGE IVP PRN (20:38)
[2022-10-14] MEDS ORDERED: HEPARIN SODIUM,PORCINE/PF 5,000 UNIT/0.5 ML SYRINGE SQ SCH (21:00)
[2022-10-15 00:19] LABS: Glucose,Whole Blood 124 mg/dL (70-110)
[2022-10-15 01:36] LABS: Glucose,Whole Blood 129 mg/dL (70-110)
[2022-10-15] MEDS: ACETAMINOPHEN TAB 325 MG TAB PO PRN ×2 (05:45→19:47)
[2022-10-15 06:39] LABS: Glucose,Whole Blood 140 mg/dL (70-110)
[2022-10-15] MEDS: PANTOPRAZOLE 40 MG TABLET PO SCH (06:40)
[2022-10-15] MEDS: LEVOTHYROXINE 112 MCG TAB PO SCH (06:40)
[2022-10-15] MEDS: INSULIN ASPART (NovoLOG) 100 UNIT/ML VIAL SQ SCH ×7 (06:43→22:13)
[2022-10-15] MEDS: HYDROmorphone 1 MG/ML 1 ML SYRINGE IVP PRN (07:24)
[2022-10-15] MEDS: METOCLOPRAMIDE 5 MG/ML 2 ML VIAL IVP PRN (07:36)
[2022-10-15] MEDS: ONDANSETRON 4 MG/2 ML VIAL IVP PRN (07:36)
[2022-10-15] MEDS ORDERED: ATORVASTATIN 40 MG TAB PO SCH (08:45)
[2022-10-15 08:54] LABS: HCT 27.2 % (34.0-46.0); HGB 8.1 gm/dL (11.4-16.0); Hypochromasia Marked; MCH 25.8 pg (25.0-35.0); MCHC 29.9 g/dL (31.0-37.0); MCV 86.1 fL (80.0-100.0); Mean Platelet Volume 8.1; Platelet Count 225 k/uL (150-450); RBC 3.15 m/uL (3.80-5.40); RDW 15.5 % (11.5-15.5); WBC 8.4 k/uL (3.8-10.6)
--- NOTE | 2022-10-15 09:03 | P.CON ---
Consult Note - . Consult date: 10/14/22 Assessment/Plan:: case reviewed pseudoaneurysm 1.2cm is small. reviewed with vasc surg and cardiology. defer to surgery
[2022-10-15 09:17] LABS: Calcium 8.2 mg/dL (8.4-10.2); Magnesium 1.9 mg/dL (1.6-2.3); Potassium 4.3 mmol/L (3.5-5.1)
[2022-10-15] MEDS: SODIUM CHLORIDE 0.9% 1,000 ML in EMPTY BAG 1 BAG IV SCH (09:30)
[2022-10-15] MEDS: TICAGRELOR 90 MG TAB PO SCH ×2 (09:34→22:13)
[2022-10-15] MEDS: FAMOTIDINE 20 MG TAB PO SCH (09:34)
[2022-10-15] MEDS: ATORVASTATIN 40 MG TAB PO SCH (09:34)
[2022-10-15] MEDS: FUROSEMIDE 40 MG TAB PO SCH (09:35)
[2022-10-15] MEDS: LOSARTAN 50 MG TAB PO SCH (09:35)
[2022-10-15] MEDS: METOPROLOL TARTRATE 25 MG TAB PO SCH ×2 (09:35→22:13)
[2022-10-15] MEDS: POTASSIUM CITRATE 10 MEQ TABLET.ER PO SCH ×2 (09:37→22:13)
--- NOTE | 2022-10-15 09:42 | PN ---
PROGRESS NOTE SUBJECTIVE: Ms. Martinez is in sinus rhythm, comfortable. She is doing better. Her right ulnar artery intervention site is also much more comfortable. She does not have pain. Ultrasound was performed. Formal results are pending. She will have either a thrombin injection or a surgery for the ulnar pseudoaneurysm based on the ultrasound findings. OBJECTIVE: VITAL SIGNS: Stable. HEART: S1, S2 heard normally. Short systolic murmur left sternal border. LUNGS: Revealed decent air entry. ABDOMEN: Soft. EXTREMITIES: Lower extremities revealed diminished pulses. CENTRAL NERVOUS SYSTEM: Normal. PLAN: We will continue all her other medications including dual antiplatelet therapy, but no Eliquis. MMODL / IJN: [id number] /
[2022-10-15] MEDS ORDERED: APIXABAN 5 MG TAB PO SCH (10:00)
--- NOTE | 2022-10-15 11:02 | US ---
EXAMINATION TYPE: US upper ext pseudo RT DATE OF EXAM: 10/15/2022 COMPARISON: Right upper extremity ultrasound 10/14/2022 CLINICAL HISTORY: Reevaluate pseudoaneurysm. re evaluate from previous exam done yesterday. TECHNIQUE: Multiple grayscale and color Doppler ultrasound images were obtained in the patient's reg ion of prior pseudoaneurysm in the right ulnar region. FINDINGS/IMPRESSION: Stable pseudoaneurysm measuring 1.2 x 0.9 x 0.6 cm arising from the right ulnar artery. The neck is similar in size measuring 1 to 2 mm in length with a width of approximately .18 cm.
--- NOTE | 2022-10-15 11:33 | P.PN ---
Subjective Progress Note Date: 10/15/22 This is a pleasant 67-year-old female patient with a known history of obesity, diabetes mellitus, hypertension, nonsmoker. She had had a laminectomy done at the [facility] in June 2022 and a follow-up surgery again in 07/31/2022. Since that time she had been having some issues with shortness of breath but more recently they have become increasingly worse and came to the emergency room on 10/11/2022. Chest x-ray showed evidence of cardiomegaly, pulmonary vascular congestion and small bilateral pleural effusions. CT angiogram was very limited due to breathing motion and noise from patient's body habitus. Could not exclude segmental branch pulmonary emboli to the basilar right lower lobe. Evidence of CHF with developing interstitial pulmonary edema. Small bilateral pleural effusions. Moderate-sized hiatal hernia. Hepatic steatosis. Echocardiogram revealed preserved left ventricular systolic function with ejection fraction of 50%. Grade 2 diastolic dysfunction. Dopplers of the bilateral lower extremities were negative for DVT. She was found to have elevated troponin peaked at 4.9. White count 9.5. Hemoglobin 8.2. Platelets 260. Sodium 138. Potassium 4.1. BUN 35. Creatinine 0.99. I curb 38. Glucose 1:30. ProBNP 6040. Yesterday 10/13/2022 she had undergone a left heart catheterization a right radial approach with PCI to the proximal LAD at approximately 1200. At approximately 1345 and A team was called due to hypotension and the patient was taken back to the [facility] for concerns regarding in-stent thrombosis. She was found to have post stenting hypotension which improved by the time she got to the [facility] and a repeat cardiac catheterization and IVUS was performed through the right femoral artery felt likely related to stent thrombosis from distal stent edge stenosis. She was brought into the intensive care unit for closer observation. She is seen today in consultation in the ICU. She is currently awake and alert and on a Ventimask at 50%. She has 0.9 normal saline at 20 mL per hour. 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 She is currently on Brilinta. The patient is seen today 10/15/2022 in follow-up in the intensive care unit. She is currently sitting up in bed. Awake and alert in no acute distress. Feeling better today compared to yesterday. She is maintaining O2 saturations i n the 90s on 3 L/m per nasal cannula. Normal saline at 20 per hour. Another ultrasound of the right upper extremity revealed a stable pseudoaneurysm measuring 1.2 x 0.9 x 0.6 arising from the right ulnar artery. Pressure dressing is dry and intact. Blood cultures reveal no growth to date. White count 8.4. Hemoglobin 8.1. Platelets 225. Sodium 137. Potassium 4.3. Bicarb 36. BUN 32. Creatinine 1.08. Glucose 121. Heparin drip is off. She remains on Brilinta. Objective - Vital Signs Vital signs: Vital Signs Temp 98.2 F 10/15/22 08:00 Pulse 80 10/15/22 10:00 Resp 14 10/15/22 10:00 BP 132/57 10/15/22 10:00 Pulse Ox 93 L 10/15/22 10:00 FiO2 50 10/14/22 11:00 Intake & Output 10/14/22 10/15/22 10/15/22 18:59 06:59 18:59 Intake Total 1080 840 120 Output Total 1440 760 365 Balance -360 80 -245 Weight 117.8 kg 114.9 kg Intake: IV 360 240 120 .9 20 220 240 80 Invasive Line 3 40 30 Invasive Line 5 10 Magnesium Sulfate-D5w Pmx 100 1 gm In Dextrose/Water 1 100ml.bag @ 100 mls/hr IVPB ONCE ONE Rx#: [id number] Oral 720 600 Output: Urine 1440 760 365 Other: Voiding Method Indwelling Catheter Indwelling Catheter Indwelling Catheter - Exam GENERAL EXAM: Alert, pleasant 67-year-old female, currently on 3 L nasal cannula, comfortable in no apparent distress. HEAD: Normocephalic. EYES: Normal reaction of pupils, equal size. NOSE: Clear with pink turbinates. THROAT: No erythema or exudates. NECK: No masses, no JVD. CHEST: No chest wall deformity. LUNGS: Equal air entry with crackles in the bilateral bases. CVS: S1 and S2 normal with no audible murmur, regular rhythm. ABDOMEN: No hepatosplenomegaly, normal bowel sounds, no guarding or rigidity. SPINE: No scoliosis or deformity SKIN: No rashes CENTRAL NERVOUS SYSTEM: No focal deficits, tone is normal in all 4 extremities. EXTREMITIES: Right radial pressure dressing intact. There is no peripheral edema. No clubbing, no cyanosis. Peripheral pulses are intact. - Labs CBC & Chem 7: 10/15/22 07:50 10/15/22 07:50 Labs: Abnormal Lab Results - Last 24 Hours (Table) 10/14/22 10/14/22 10/14/22 Range/Units 12:32 17:25 20:05 RBC (3.80-5.40) m/uL Hgb (11.4-16.0) gm/dL Hct (34.0-46.0) % MCHC (31.0-37.0) g/dL Chloride (98-107) mmol/L Carbon Dioxide (22-30) mmol/L BUN (7-17) mg/dL Creatinine (0.52-1.04) mg/dL Glucose (74-99) mg/dL POC Glucose (mg/dL) 185 H 303 H 387 H (70-110) mg/dL Calcium (8.4-10.2) mg/dL 10/15/22 10/15/22 10/15/22 Range/Units 00:18 01:34 06:37 RBC (3.80-5.40) m/uL Hgb (11.4-16.0) gm/dL Hct (34.0-46.0) % MCHC (31.0-37.0) g/dL Chloride (98-107) mmol/L Carbon Dioxide (22-30) mmol/L BUN (7-17) mg/dL Creatinine (0.52-1.04) mg/dL Glucose (74-99) mg/dL POC Glucose (mg/dL) 124 H 129 H 140 H (70-110) mg/dL Calcium (8.4-10.2) mg/dL 10/15/22 10/15/22 Range/Units 07:50 07:50 RBC 3.15 L (3.80-5.40) m/uL Hgb 8.1 L (11.4-16.0) gm/dL Hct 27.2 L (34.0-46.0) % MCHC 29.9 L (31.0-37.0) g/dL Chloride 97 L (98-107) mmol/L Carbon Dioxide 36 H (22-30) mmol/L BUN 32 H (7-17) mg/dL Creatinine 1.08 H (0.52-1.04) mg/dL Glucose 121 H (74-99) mg/dL POC Glucose (mg/dL) (70-110) mg/dL Calcium 8.2 L (8.4-10.2) mg/dL Microbiology - Last 24 Hours (Table) 10/11/22 09:46 Blood Culture - Preliminary Blood No Growth after 72 hours 10/11/22 09:46 Blood Culture - Preliminary Blood No Growth after 72 hours Assessment and Plan Assessment: Acute on chronic hypoxemic respiratory failure secondary to acute exacerbation of diastolic congestive heart failure with subsequent finding of a small segmental right lower lobe pulmonary emboli Non-ST segment elevation myocardial infarction Coronary artery disease status post stenting to the left anterior descending artery with post stenting hypotension acquiring a return to the [facility] a short time later on 10/13/2022 Right radial hematoma/edema found to have a pseudoaneurysm, a follow-up ultrasound reveals stable findings Obesity Hypertension Hypothyroidism Hyperlipidemia Diabetes mellitus Gastric esophageal reflux disease Obstructive sleep apnea suspected Plan: The patient was seen and evaluated Labs and medications reviewed Right radial artery pseudoaneurysm stable Pressure dressing intact Titrate the FiO2 as tolerated Continue diuretics Initiated on Eliquis Stable for transfer to the selective care unit We will continue to follow I have personally seen and examined the patient, performed the documentation and the assessment and plan as written. Number of minutes spent on the visit: 10.
[2022-10-15 11:46] LABS: Glucose,Whole Blood 147 mg/dL (70-110)
--- NOTE | 2022-10-15 11:57 | P.PN ---
Subjective Progress Note Date: 10/15/22 Principal diagnosis: Pseudoaneurysm patient seen and examined today as a follow-up for right upper extremity pseudoaneurysm status post right ulnar artery access. Patient states arm feels much better today. Swelling has improved. She has good range of motion of her right upper extremity and hand and fingers. Repeat ultrasound report stable pseudoaneurysm measuring 1.2 x 0.9 x 0.6 cm arising from right ulnar artery, neck similar in size measuring 1-2 mm in length with with 5.18 cm. Patient's hemoglobin stable at 8.1 from 8.2 yesterday. Anticoagulation was on hold. Trino garber getting Brilinta. She is denying any shortness of breath or chest pain. Objective - Vital Signs Vital signs: Vital Signs Temp 98.2 F 10/15/22 08:00 Pulse 80 10/15/22 08:00 Resp 14 10/15/22 08:00 BP 129/54 10/15/22 08:00 Pulse Ox 95 10/15/22 08:00 FiO2 50 10/14/22 11:00 Intake & Output 10/14/22 10/15/22 10/15/22 18:59 06:59 18:59 Intake Total 1080 840 80 Output Total 1440 760 115 Balance -360 80 -35 Weight 117.8 kg 114.9 kg Intake: IV 360 240 80 .9 20 220 240 40 Invasive Line 3 40 30 Invasive Line 5 10 Magnesium Sulfate-D5w Pmx 100 1 gm In Dextrose/Water 1 100ml.bag @ 100 mls/hr IVPB ONCE ONE Rx#: [id number] Oral 720 600 Output: Urine 1440 760 115 Other: Voiding Method Indwelling Catheter Indwelling Catheter Indwelling Catheter - Exam General appearance: The patient is alert, oriented, appears in no acute distress. HET: Head is normocephalic and atraumatic. Pupils are equal and reactive. Neck: Supple. Heart: Regular. Lungs: Equal expansion, normal respiratory effort. Abdomen: Soft, nontender, nondistended. Extremities: Right upper extremity with good mobility, sensorimotor intact. Good range of motion of fingers and hand. Hematoma improving, ecchymosis present. No bleeding from access site. Pressure dressing in place. Neurological: No focal deficits. - Labs CBC & Chem 7: 10/15/22 07:50 10/15/22 07:50 Labs: Abnormal Lab Results - Last 24 Hours (Table) 10/14/22 10/14/22 10/14/22 Range/Units 12:32 17:25 20:05 POC Glucose (mg/dL) 185 H 303 H 387 H (70-110) mg/dL 10/15/22 10/15/22 10/15/22 Range/Units 00:18 01:34 06:37 POC Glucose (mg/dL) 124 H 129 H 140 H (70-110) mg/dL Microbiology - Last 24 Hours (Table) 10/11/22 09:46 Blood Culture - Preliminary Blood No Growth after 72 hours 10/11/22 09:46 Blood Culture - Preliminary Blood No Growth after 72 hours Assessment and Plan Assessment: 1. Right ulnar artery pseudoaneurysm, stable 2. NSTEMI status post PCI proximal LAD 10/13/2022 3. Hypotension post PCI 4. Shortness of breath 5. Possible pulmonary embolism 6. Diabetes mellitus 7. History of TIA 8. Recent lumbar surgery done in June 2022, with nonhealing wound Plan: 1. Keep nothing by mouth 2. Repeat right upper extremity ultrasound reviewed, pseudoaneurysm stable. Interventional radiology for possible thrombin injection, however due to the small stable size of pseudoaneurysm they are deferring to surgery. 3. Keep pressure dressing in place over right ulnar artery 4. Further recommendations forthcoming per vascular surgeon 5. Hold anticoagulation Thank you for this consultation, we will continue to follow. The impression and plan of care has been dictated as directed. Dr. Ayala I performed a history and examination of this patient, discussed the same with the dictator. I agree with the dictator's note ,documented as a scribe. Any additional findings or plans will be noted.
[2022-10-15] MEDS: COLLAGENASE 250 UNIT/GM OINTMENT 30 GM TUBE TOPICAL SCH ×2 (12:00→12:46)
--- NOTE | 2022-10-15 12:02 | P.CONS ---
History of Present Illness - Reason for Consult Consult date: 10/15/22 wound care - History of Present Illness Is a 67-year-old patient who is being seen for a 15 ulceration to her back. Patient follows with the wound care center at [facility] where she is utilizing Santyl for a ulceration related to a surgery that she had there. Patient has been dealing with this ulceration for 3 months. At this time she is utilizing Santyl once per day. Patient states that the ulceration has improved over the last few weeks. Patient declined to have the ulceration assessed. Review Of Systems: Constitutional: No fever, no chills, no night sweats. No weight change. No weakness, fatigue or lethargy. No daytime sleepiness. Integumentary:reports wounds, no lesions. No rash or pruritus. No unusual bruising. No change in hair or nails. Physical exam: General Appearance: Alert, cooperative, no distress, appears stated age. Skin: See HPI all other Skin color, texture, tugor normal, no rashes or lesions. Neurologic: Alert oriented x3 Assessment: 1. Nonhealing ulceration with fat layer exposure to the back 2. Diabetes with skin ulceration Plan: 1. Apply Santyl, saline moistened gauze, border foam. Change daily. Thank you for the consultation any questions please contact the wound care center DNP note has been reviewed and discussed with Dr. White and the impression and plan of care has been directed as dictated. Past Medical History Past Medical History: Diabetes Mellitus, Hypertension Additional Past Medical History / Comment(s): hypothyroid, kidney stone, GLUCOMA History of Any Multi-Drug Resistant Organisms: None Reported Past Surgical History: Back Surgery, Hysterectomy Additional Past Surgical History / Comment(s): kidney stones removed and stent CATARACTS REMOVED AND STENT PUT IN FOR GLUCOMA. 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 Past Anesthesia/Blood Transfusion Reactions: Previous Problems w/ Anesthesia, Postoperative Nausea & Vomiting (PONV) Past Psychological History: No Psychological Hx Reported Smoking Status: Never smoker Past Alcohol Use History: None Reported Past Drug Use History: None Reported - Past Family History Mother Family Medical History: No Reported History Father Additional Family Medical History / Comment(s): Heart history Medications and Allergies Home Medications Medication Instructions Recorded Confirmed Type RX: Metoprolol Tartrate [Lopressor] 25 mg PO BID 01/31/14 10/11/22 History RX: Insulin Aspart (For Pump) 0.01 unit SQ-PUMP CONTINUOUS 05/16/19 10/11/22 History [NovoLOG (For Pump)] RX: Levothyroxine Sodium 112 mcg PO DAILY 05/16/19 10/11/22 History [Synthroid] RX: Losartan Potassium 100 mg PO DAILY 05/16/19 10/11/22 History RX: amLODIPine [Norvasc] 5 mg PO DAILY 05/16/19 10/11/22 History Famotidine [Pepcid] 20 mg PO BID 04/26/20 10/11/22 History Collagenase [Santyl Ointment] 1 applic TOPICAL DAILY 10/11/22 10/11/22 History Potassium Citrate [Potassium 10 meq PO TID 10/11/22 10/11/22 History Citrate ER] Rosuvastatin [Crestor] 10 mg PO DAILY 10/11/22 10/11/22 History Allergies Allergy/AdvReac Type Severity Reaction Status Date / Time No Known Allergies Allergy Verified 10/11/22 11:23 Physical Exam Vitals: Vital Signs Temp Pulse Resp BP Pulse Ox 10/15/22 10:00 80 14 132/57 93 L 10/15/22 09:18 94 L 10/15/22 09:00 76 14 137/55 94 L 10/15/22 08:00 98.2 F 80 14 129/54 95 10/15/22 07:46 98.2 F 10/15/22 07:00 73 21 141/62 97 10/15/22 06:00 74 17 139/61 95 10/15/22 05:00 77 19 136/60 96 10/15/22 04:00 98.4 F 71 15 118/46 97 10/15/22 03:01 74 16 118/46 99 10/15/22 02:00 71 18 133/62 94 L 10/15/22 01:00 78 18 144/60 93 L 10/15/22 00:00 98.2 F 72 14 128/74 93 L 10/14/22 23:00 74 13 124/58 98 10/14/22 22:00 75 15 131/54 97 10/14/22 21:00 79 15 133/64 94 L 10/14/22 20:00 98.7 F 85 20 116/58 92 L 10/14/22 19:00 86 15 103/53 98 03/20/23 18:00 85 15 128/73 93 L 10/14/22 17:00 78 16 117/54 97 10/14/22 16:00 98.2 F 73 15 99/36 97 10/14/22 15:00 81 20 97/65 95 10/14/22 14:00 72 15 122/57 94 L 10/14/22 13:00 80 12 126/53 93 L 10/14/22 12:00 98.2 F 90 16 126/53 96 Intake and Output 10/14/22 10/15/22 10/15/22 22:59 06:59 14:59 Intake Total 1250 160 120 Output Total 1060 400 365 Balance 190 -240 -245 Intake: IV 170 160 120 .9 20 160 160 80 Invasive Line 3 10 30 Invasive Line 5 10 Oral 1080 Output: Urine 1060 400 365 Other: Voiding Method Indwelling Catheter Indwelling Catheter Indwelling Catheter Weight 114.9 kg Results CBC & Chem 7: 10/15/22 07:50 10/15/22 07:50 Labs: Abnormal Lab Results - Last 24 Hours (Table) 10/14/22 10/14/22 10/14/22 Range/Units 12:32 17:25 20:05 RBC (3.80-5.40) m/uL Hgb (11.4-16.0) gm/dL Hct (34.0-46.0) % MCHC (31.0-37.0) g/dL Chloride (98-107) mmol/L Carbon Dioxide (22-30) mmol/L BUN (7-17) mg/dL Creatinine (0.52-1.04) mg/dL Glucose (74-99) mg/dL POC Glucose (mg/dL) 185 H 303 H 387 H (70-110) mg/dL Calcium (8.4-10.2) mg/dL 10/15/22 10/15/22 10/15/22 Range/Units 00:18 01:34 06:37 RBC (3.80-5.40) m/uL Hgb (11.4-16.0) gm/dL Hct (34.0-46.0) % MCHC (31.0-37.0) g/dL Chloride (98-107) mmol/L Carbon Dioxide (22-30) mmol/L BUN (7-17) mg/dL Creatinine (0.52-1.04) mg/dL Glucose (74-99) mg/dL POC Glucose (mg/dL) 124 H 129 H 140 H (70-110) mg/dL Calcium (8.4-10.2) mg/dL 10/15/22 10/15/22 10/15/22 Range/Units 07:50 07:50 11:45 RBC 3.15 L (3.80-5.40) m/uL Hgb 8.1 L (11.4-16.0) gm/dL Hct 27.2 L (34.0-46.0) % MCHC 29.9 L (31.0-37.0) g/dL Chloride 97 L (98-107) mmol/L Carbon Dioxide 36 H (22-30) mmol/L BUN 32 H (7-17) mg/dL Creatinine 1.08 H (0.52-1.04) mg/dL Glucose 121 H (74-99) mg/dL POC Glucose (mg/dL) 147 H (70-110) mg/dL Calcium 8.2 L (8.4-10.2) mg/dL Microbiology - Last 24 Hours (Table) 10/11/22 09:46 Blood Culture - Preliminary Blood No Growth after 72 hours 10/11/22 09:46 Blood Culture - Preliminary Blood No Growth after 72 hours Assessment and Plan (1) Non-pressure chronic ulcer of skin of other sites with muscle involvement wi thout evidence of necrosis Current Visit: Yes Status: Acute Code(s): L98.495 - NON-PRS CHR ULC SKIN/ OTH SITE WITH MSL INVL W/O EVD OF NECR SNOMED Code(s): 45812448 (2) Type 2 diabetes mellitus with other skin ulcer Current Visit: Yes Status: Acute Code(s): E11.622 - TYPE 2 DIABETES MELLITUS WITH OTHER SKIN ULCER; L98.499 - NON-PRESSURE CHRONIC ULCER OF SKIN OF SITES W UNSP SEVERITY SNOMED Code(s): 000175034
--- NOTE | 2022-10-15 14:13 | P.PN ---
Subjective Progress Note Date: 10/15/22 HISTORY OF PRESENT ILLNESS: This is a 67-year-old female with a previous medical history signif icant for hypertension and hypertensive cardiovascular disease, hyperlipidemia, hypothyroidism, chronic gastroesophageal reflux disease with esophagitis, type 1 diabetes mellitus currently on insulin pump, vitamin D deficiency, diabetic neuropathy, patient also had history of spondylosis of the lumbar spine status post lumbar laminectomy back in 07/01/2022 followed by a wound dehiscence at the [facility] of the lumbar area and she ended up going back for another surgical intervention and generally fourth 2022 after that she was sent to [facility] [place], she had a wound that has been treated through the wound care center for the [facility] and currently has been getting Santyl and the area has almost closed up, patient has been following with Dr. Trujillo as an outpatient for her insulin pump, and she stated that her sugar has been getting high recently she presented to the office on 10/08/2021 with increased shortness of breath has been on oxygen 3 L nasal cannula that she has been increased to 5-60 minute visit cannula, she has been complaining of increased swelling in both lower extremity is, she has been complaining of significant dyspnea on exertion, patient weight has been done up to 260, patient scheduled to go to see pulmonary to rule out obesity hypoventilation syndrome as well as obstructive sleep apnea and she was supposed to go see Dr. Foreman the office however she woke up in the morning and she was complaining of significant shortness breath, when her came to check on her she looked castro and she asked him to call 911, patient presented to the emergency department at [facility] she was found to have a significant pulmonary edema on a chest x-ray with bilateral pleural effusion, but because be elevated d-dimer, she underwent CTA of the chest that documented the pulmonary edema and possible pulmonary emboli in the right subsegmental lower lobes, and she was started on heparin drip as well as Lasix 40 mg IV push every 8 hours she was admitted to the hospital echogram was obtained, with cardiology consultation as well as pulmonary consultation 10/12: Patient is sitting up at the edge of the bed she is doing better today, she is up on oxygen to 6 L nasal cannula, she continues to diurese very well, mildly elevated potassium at 5.2, we'll decrease her potassium citrate to twice a day, continue heparin drip, continue metoprolol, continue losartan, continue to monitor the patient very closely, echocardiogram was done, venous Doppler of both lower extremity would be done to rule out any DVT, please keep the patient on heparin drip for now. 10/13: Patient is sitting up in bed and feeling better today, her troponin went up to 4.9, she was rolled into non-ST elevation [place], patient did have echocardiogram did show evidence of mild global hypokinesia with ejection fraction 50% mild mitral regurgitation and tricuspid regurgitation no pulmonary hypertension, continue patient on heparin drip, continue patient on metoprolol 25 mg orally twice every day, pulmonary consultation for evaluation of possible pulmonary emboli at the lower lobe segmental branches, patient will need to go for a heart catheter physician for evaluation of the coronary anatomy at this time, I would decrease her Lasix to 40 mg po daily 10/14: Yesterday, patient underwent left heart catheterization, PCI in the proximal LAD with stent post dilated proximal LAD with balloon. Subsequently patient developed hypotension with blood pressures in the 60s over 40s and returned to her room. To be pallid L. EKG showed significant ST elevations and some ST depressions therefore STEMI alert was activated and patient was returned to the research laboratory technician. Post stenting hypotension was improved by the time she reached the research laboratory technician felt likely related to stent thrombosis from distal stent edge stenosis. Cardiology has recommended dual antiplatelets with aspirin and Brilinta for 12 months. Patient is seen today in the intensive care unit. Chest x-ray this morning reveals mild cardiomegaly with improving pulmonary vascular congestion. Interval improvement in previous small pleural effusions as well. 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 Clinically a consult was placed with vascular surgery and they have evaluated the patient and there is no plan for surgical intervention at this time. Plan to repeat ultrasound of the right upper extremity tomorrow. Repeat blood work reveals hemoglobin of 8.2, WBC 9.5, platelet count 260. Sodium 138, potassium 4.1, BUN 35 and creatinine 0.99. ProBNP 6040. Magnesium 1.7. TSH 2.89 and free T4 1 0.83. Repeat echocardiogram reveals Re: Possible pulmonary embolism, ultrasound of bilateral lower extremities negative for DVT. Patient will be started on oral anticoagulation once cleared by consultants. 3/21: Patient remains in the ICU but has been down graded to 3S. marek is on hold for possible surgical intervention by vascular surgery. Patient has had good urine output and Parker can be removed following surgery. Patient general states she is feeling much better, no shortness of breath and no chest pain. Patient's is at bedside. Repeat blood work reveals hemoglobin of 8.1, BUN 32 creatinine 1.08. Potassium 4.3. Blood sugars are running between 124- 147. REVIEW OF SYSTEMS: Constitutional: No documented fever, no chills, no night sweats. positive for significant weight gain No weakness, fatigue or lethargy. No daytime sleepiness. HEENT: No headache. No blurred vision or double vision, no loss of vision. No loss of Hearing, no ringing in the ears, no dizziness. No nasal drainage or congestion. No epistaxis. No sore throat. Lungs: positive for shortness of breath, occasional cough, no sputum production. No wheezing. Reports dyspnea with activity, positive for orthopneam and PND Cardiovascular: No chest pain, positive for lower extremity edema. positive for palpitations. positive for paroxysmal nocturnal dyspnea. positive for orthopnea. No lightheadedness or dizziness. No syncopal episodes. Abdominal: Reports no abdominal pain. positive for nausea, vomiting. No diarrhea. No constipation. No bloody or tarry stools reports loss of appetite. Genitourinary: No dysuria, increased frequency, urgency. No urinary retention. Musculoskeletal: No myalgias. positive for muscle weakness, positive for gait dysfunction, no frequent falls. positive for back pain. No neck pain. Mild discomfort right wrist. Integumentary: positive for lumbar wound that is covered with santyl , no lesions. No rash or pruritus. No unusual bruising. No change in hair or nails. Neurologic: No aphasia. No facial droop. No change in mentation. No head injury. No headache. No paralysis. No paresthesia. Psychiatric: No depression. No anxiety. No mood swings. Endocrine: positive for mildly abnormal blood sugars. positive for weight change. PHYSICAL EXAMINATION: General: 67-year-old female laying down in bed in moderate respiratory distress HEENT: Head is atraumatic, normocephalic, pupils were equal round reactive to light and recommendation, extraocular muscle movement were intact, sclera nonict jef, conjunctivae were pale, mucous membranes of the mouth are somewhat dry. Neck: Supple, no JVP, normal carotid upstroke bilaterally, no lymphadenopathy. Chest: Decreased breath sounds at the bases, few rhonchi, positive for expiratory wheezes, no chest wall tenderness, minimal intercostal retractions. Heart: First heart sound is normal, second heart sound is normal tachycardic there is systolic ejection murmur 2/6 located in the left sternal border. Abdomen: Soft, nontender, nondistended, positive bowel sounds. 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 ASSESSMENT AND PLAN: 1. Acute on chronic hypoxemic respiratory failure due to pulmonary edema due to acute systolic heart failure as well as right lower lobes pulmonary emboli. Continue furosemide 40 mg po daily, continue metoprolol 25 mg orally twice every day, continue losartan 100 mg orally once every day. Consult with cardiology and pulmonary medicine appreciated. 2. Pulmonary edema with acute diastolic heart failure Continue furosemide 40 mg po daily continue metoprolol 25 mg orally twice every day, continue losartan 100 mg orally once every day, reviewed echocardiogram. 3. Right subsegmental branches of the lower lobes pulmonary emboli. Hold on eliquis for now in case patient needs any further surgical intervention. 4. One episode of atrial flutter with RVR. Please refer to the 12-lead EKG in the chart. Continue metoprolol 25 mg orally twice every day. 5. Non-ST elevated myocardial infarction status post cardiac catheterization and PCI of the LAD and balloon to the proximal LAD. Continue patient on Brilinta 90 mg twice daily, aspirin 81 mg daily, atorvastatin 20 mg daily, metoprolol 25 mg twice daily. 6. Hypotension following PCI thought to be related to stent thrombosis from the distal stent edge. 7. Right upper extremity hematoma status post ulnar artery access for cardiac catheterization. Consult with vascular surgery appreciated, repeat ultrasound ordered for tomorrow morning. 8. Hypertension and hypertensive cardiovascular disease. Continue patient on metoprolol 25 mg orally twice every day, losartan 100 mg orally once every day, monitor the patient very closely. 9. Hyperlipidemia. continue atorvastatin 20 mg orally once every day, monitor the patient the benefit, keep LDL 55-70. 10. Hypothyroidism. Continue patient on Synthroid 112 g orally once every day. 11. Diabetes mellitus type 1. on Levemir 50 units at bedtime along with NovoLog 12 units plus the sliding scale insulin. 12. GERD with esophagitis and hiatal hernia. Continue patient on Protonix 40 mg once every day. 13. Obesity with obstructive sleep apnea and possible obesity hypoventilation syndrome patient will need to have a sleep study as an outpatient. 14. Vitamin D deficiency. Continue vitamin D3 2000 units once every day. 15. History of kidney stones. 16. DVT prophylaxis. Continue patient on heparin subcu. 14. GI prophylaxis. Continue PPI. 15. Lumbar dehiscence after surgery at [facility] postlaminectomy continue with local wound care with Santyl every day. 16. Guarded prognosis. Impression and plan of care have been directed as dictated by the signing physician. Lili Lancaster nurse practitioner acting as scribe for signing physician. Objective - Vital Signs Vital signs: Vital Signs Temp 98.8 F 10/15/22 12:00 Pulse 69 10/15/22 12:00 Resp 16 10/15/22 12:00 BP 114/51 10/15/22 12:00 Pulse Ox 96 10/15/22 12:00 FiO2 50 10/14/22 11:00 Intake & Output 10/14/22 10/15/22 10/15/22 18:59 06:59 18:59 Intake Total 1080 840 120 Output Total 1440 760 365 Balance -360 80 -245 Weight 117.8 kg 114.9 kg Intake: IV 360 240 120 .9 20 220 240 80 Invasive Line 3 40 30 Invasive Line 5 10 Magnesium Sulfate-D5w Pmx 100 1 gm In Dextrose/Water 1 100ml.bag @ 100 mls/hr IVPB ONCE ONE Rx#: [id number] Oral 720 600 Output: Urine 1440 760 365 Other: Voiding Method Indwelling Catheter Indwelling Catheter Indwelling Catheter - Labs CBC & Chem 7: 10/15/22 07:50 10/15/22 07:50 Labs: Abnormal Lab Results - Last 24 Hours (Table) 10/14/22 10/14/22 10/15/22 Range/Units 17:25 20:05 00:18 RBC (3.80-5.40) m/uL Hgb (11.4-16.0) gm/dL Hct (34.0-46.0) % MCHC (31.0-37.0) g/dL Chloride (98-107) mmol/L Carbon Dioxide (22-30) mmol/L BUN (7-17) mg/dL Creatinine (0.52-1.04) mg/dL Glucose (74-99) mg/dL POC Glucose (mg/dL) 303 H 387 H 124 H (70-110) mg/dL Calcium (8.4-10.2) mg/dL 10/15/22 10/15/22 10/15/22 Range/Units 01:34 06:37 07:50 RBC 3.15 L (3.80-5.40) m/uL Hgb 8.1 L (11.4-16.0) gm/dL Hct 27.2 L (34.0-46.0) % MCHC 29.9 L (31.0-37.0) g/dL Chloride (98-107) mmol/L Carbon Dioxide (22-30) mmol/L BUN (7-17) mg/dL Creatinine (0.52-1.04) mg/dL Glucose (74-99) mg/dL POC Glucose (mg/dL) 129 H 140 H (70-110) mg/dL Calcium (8.4-10.2) mg/dL 10/15/22 10/15/22 Range/Units 07:50 11:45 RBC (3.80-5.40) m/uL Hgb (11.4-16.0) gm/dL Hct (34.0-46.0) % MCHC (31.0-37.0) g/dL Chloride 97 L (98-107) mmol/L Carbon Dioxide 36 H (22-30) mmol/L BUN 32 H (7-17) mg/dL Creatinine 1.08 H (0.52-1.04) mg/dL Glucose 121 H (74-99) mg/dL POC Glucose (mg/dL) 147 H (70-110) mg/dL Calcium 8.2 L (8.4-10.2) mg/dL Microbiology - Last 24 Hours (Table) 10/11/22 09:46 Blood Culture - Preliminary Blood No Growth after 96 hours 10/11/22 09:46 Blood Culture - Preliminary Blood No Growth after 96 hours
[2022-10-15] MEDS: ASPIRIN 81 MG PO SCH (14:22)
[2022-10-15 16:39] LABS: Glucose,Whole Blood 179 mg/dL (70-110)
[2022-10-15 20:12] LABS: Glucose,Whole Blood 266 mg/dL (70-110)
[2022-10-15] MEDS: INSULIN DETEMIR (LEVEMIR) 100 UNIT/ML SYR SQ SCH (22:13)
[2022-10-16] MEDS: ONDANSETRON 4 MG/2 ML VIAL IVP PRN (01:45)
[2022-10-16 02:02] LABS: Glucose,Whole Blood 221 mg/dL (70-110)
[2022-10-16] MEDS: METOCLOPRAMIDE 5 MG/ML 2 ML VIAL IVP PRN (04:23)
[2022-10-16 06:12] LABS: Glucose,Whole Blood 221 mg/dL (70-110)
[2022-10-16] MEDS: LEVOTHYROXINE 112 MCG TAB PO SCH (06:49)
[2022-10-16] MEDS: PANTOPRAZOLE 40 MG TABLET PO SCH (06:49)
[2022-10-16] MEDS: INSULIN ASPART (NovoLOG) 100 UNIT/ML VIAL SQ SCH ×7 (06:49→20:19)
[2022-10-16 09:51] LABS: HCT 27.9 % (34.0-46.0); HGB 8.6 gm/dL (11.4-16.0); Hypochromasia Marked; MCH 26.4 pg (25.0-35.0); MCHC 30.8 g/dL (31.0-37.0); MCV 85.5 fL (80.0-100.0); Platelet Count 270 k/uL (150-450); RBC 3.26 m/uL (3.80-5.40); RDW 15.6 % (11.5-15.5); WBC 11.7 k/uL (3.8-10.6)
[2022-10-16 10:02] LABS: Calcium 8.4 mg/dL (8.4-10.2); Potassium 3.6 mmol/L (3.5-5.1)
[2022-10-16] MEDS: ATORVASTATIN 40 MG TAB PO SCH (10:26)
[2022-10-16] MEDS: FAMOTIDINE 20 MG TAB PO SCH (10:27)
[2022-10-16] MEDS: LOSARTAN 50 MG TAB PO SCH (10:31)
[2022-10-16] MEDS: FUROSEMIDE 40 MG TAB PO SCH (10:31)
[2022-10-16] MEDS: METOPROLOL TARTRATE 25 MG TAB PO SCH ×2 (10:32→20:17)
[2022-10-16] MEDS: POTASSIUM CITRATE 10 MEQ TABLET.ER PO SCH ×2 (10:33→20:17)
[2022-10-16] MEDS: COLLAGENASE 250 UNIT/GM OINTMENT 30 GM TUBE TOPICAL SCH ×2 (11:52→15:12)
--- NOTE | 2022-10-16 11:53 | P.PN ---
Subjective Progress Note Date: 10/16/22 HISTORY OF PRESENT ILLNESS: Patient is status post cardiac catheterization on 10/13/2022 revealing 90% proximal LAD, 70% diagonal 1 stenosis, mid LAD 40-50% stenosis, and RCA 30-40% s tenosis. Patient underwent stenting of the proximal LAD. Patient developed right ulnar artery pseudoaneurysm and is scheduled for repair today with vascular surgery. Patient denies chest pain or pressure. Denies SOB. Vital signs are stable. PHYSICAL EXAM: VITAL SIGNS: Reviewed. GENERAL: Well-developed in no acute distress. NECK: Supple. No JVD or thyromegaly LUNGS: Respirations even and unlabored. Lungs essentially clear to auscultation bilaterally. HEART: Regular rate and rhythm. S1 and S2 heard. EXTREMITIES: Normal range of motion. No clubbing or cyanosis. Peripheral pulses intact. No lower extremity edema. Right upper extremity elevated on pillows with ecchymosis noted. ASSESSMENT: NSTEMI, s/p cardiac cath with PCI to proximal LAD Post stenting hypotension, resolved Right ulnar artery pseudoaneurysm Acute on chronic hypoxic respiratory failure Pulmonary edema Pulmonary embolism Hypertension Hyperlipidemia Diabetes Hypothyroidism PLAN: Continue aspirin and brilinta. No Eliquis at this time Continue additional cardiac medications Patient to undergo repair of right ulnar artery pseudoaneurysm today with vas cular surgery Further recommendations pending patient course Nurse practitioner note has been reviewed by physician. Signing provider agrees with the documented findings, assessment, and plan of care. Objective - Vital Signs Vital signs: Vital Signs Temp 98.9 F 10/16/22 08:43 Pulse 81 10/16/22 08:43 Resp 23 10/16/22 08:43 BP 144/70 10/16/22 08:43 Pulse Ox 97 10/16/22 09:54 FiO2 50 10/14/22 11:00 Intake & Output 10/15/22 10/16/22 10/16/22 18:59 06:59 18:59 Intake Total 220 120 90 Output Total 840 1600 700 Balance -620 -9680 -610 Intake: IV 220 120 90 .9 20 140 Invasive Line 3 60 100 80 Invasive Line 5 20 20 10 Output: Urine 840 1600 700 Other: Voiding Method Indwelling Catheter # Bowel Movements 1 - Labs CBC & Chem 7: 10/16/22 07:42 10/16/22 07:42 Labs: Abnormal Lab Results - Last 24 Hours (Table) 10/15/22 10/15/22 10/15/22 Range/Units 11:45 16:35 20:10 WBC (3.8-10.6) k/uL RBC (3.80-5.40) m/uL Hgb (11.4-16.0) gm/dL Hct (34.0-46.0) % MCHC (31.0-37.0) g/dL RDW (11.5-15.5) % Chloride (98-107) mmol/L Carbon Dioxide (22-30) mmol/L BUN (7-17) mg/dL Creatinine (0.52-1.04) mg/dL Glucose (74-99) mg/dL POC Glucose (mg/dL) 147 H 179 H 266 H (70-110) mg/dL 10/16/22 10/16/22 10/16/22 Range/Units 02:00 06:11 07:42 WBC 11.7 H (3.8-10.6) k/uL RBC 3.26 L (3.80-5.40) m/uL Hgb 8.6 L (11.4-16.0) gm/dL Hct 27.9 L (34.0-46.0) % MCHC 30.8 L (31.0-37.0) g/dL RDW 15.6 H (11.5-15.5) % Chloride (98-107) mmol/L Carbon Dioxide (22-30) mmol/L BUN (7-17) mg/dL Creatinine (0.52-1.04) mg/dL Glucose (74-99) mg/dL POC Glucose (mg/dL) 221 H 221 H (70-110) mg/dL 10/16/22 Range/Units 07:42 WBC (3.8-10.6) k/uL RBC (3.80-5.40) m/uL Hgb (11.4-16.0) gm/dL Hct (34.0-46.0) % MCHC (31.0-37.0) g/dL RDW (11.5-15.5) % Chloride 95 L (98-107) mmol/L Carbon Dioxide 39 H (22-30) mmol/L BUN 29 H (7-17) mg/dL Creatinine 1.10 H (0.52-1.04) mg/dL Glucose 148 H (74-99) mg/dL POC Glucose (mg/dL) (70-110) mg/dL Microbiology - Last 24 Hours (Table) 10/11/22 09:46 Blood Culture - Preliminary Blood No Growth after 96 hours 10/11/22 09:46 Blood Culture - Preliminary Blood No Growth after 96 hours
[2022-10-16 11:56] LABS: Glucose,Whole Blood 151 mg/dL (70-110)
[2022-10-16] MEDS: ACETAMINOPHEN TAB 325 MG TAB PO PRN ×2 (11:59→20:17)
[2022-10-16 14:14] VITALS: BMI 49.4
--- NOTE | 2022-10-16 14:41 | P.PN ---
Subjective Progress Note Date: 10/16/22 Principal diagnosis: Pulmonary edema. This is a pleasant 67-year-old female patient with a known history of obesity, diabetes mellitus, hypertension, nonsmoker. She had had a laminectomy done at the [facility] in June 2022 and a follow-up surgery again in 07/31/2022. Since that time she had been having some issues with shortness of breath but more recently they have become increasingly worse and came to the emergency room on 10/11/2022. Chest x-ray showed evidence of cardiomegaly, pulmonary vascular congestion and small bilateral pleural effusions. CT a ngiogram was very limited due to breathing motion and noise from patient's body habitus. Could not exclude segmental branch pulmonary emboli to the basilar right lower lobe. Evidence of CHF with developing interstitial pulmonary edema. Small bilateral pleural effusions. Moderate-sized hiatal hernia. Hepatic steatosis. Echocardiogram revealed preserved left ventricular systolic function with ejection fraction of 50%. Grade 2 diastolic dysfunction. Dopplers of the bilateral lower extremities were negative for DVT. She was found to have elevated troponin peaked at 4.9. White count 9.5. Hemoglobin 8.2. Platelets 260. Sodium 138. Potassium 4.1. BUN 35. Creatinine 0.99. I curb 38. Glucose 1:30. ProBNP 6040. Yesterday 10/13/2022 she had undergone a left heart catheterization a right radial approach with PCI to the proximal LAD at approximately 1200. At approximately 1345 and A team was called due to hypotension and the patient was taken back to the Site Safety Representative for concerns r egarding in-stent thrombosis. She was found to have post stenting hypotension which improved by the time she got to the Site Safety Representative and a repeat cardiac catheterization and IVUS was performed through the right femoral artery felt likely related to stent thrombosis from distal stent edge stenosis. She was brought into the intensive care unit for closer observation. She is seen today in consultation in the ICU. She is currently awake and alert and on a Ventimask at 50%. She has 0.9 normal saline at 20 mL per hour. 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 She is currently on Brilinta. The patient is seen today 10/15/2022 in follow-up in the intensive care unit. She is currently sitting up in bed. Awake and alert in no acute distress. Feeling better today compared to yesterday. She is maintaining O2 saturations in the 90s on 3 L/m per nasal cannula. Normal saline at 20 per hour. Another ultrasound of the right upper extremity revealed a stable pseudoaneurysm measuring 1.2 x 0.9 x 0.6 arising from the right ulnar artery. Pressure dressing is dry and intact. Blood cultures reveal no growth to date. White count 8.4. Hemoglobin 8.1. Platelets 225. Sodium 137. Potassium 4.3. Bicarb 36. BUN 32. Creatinine 1.08. Glucose 121. Heparin drip is off. She remains on Brilinta. Progress note dated 10/16/2022. The patient is seen today in room 382. Yesterday, she was in the intensive care unit. Currently, the patient's on 3 views of oxygen. She's not receiving any IV fluids. She was in a good mood, and feeling much improved. She denied any shortness of breath or difficulty breathing. She denied any pain. White count 11.7, hemoglobin 8.6, hematocrit 27.9, with a platelet count of 270,000. Sodium 140, potassium 3.6, chlorides 95, CO2 39, BUN 29, creatinine 1.10. Blood cultures are negative. Objective - Vital Signs Vital signs: Vital Signs Temp 98.7 F 10/16/22 11:56 Pulse 78 10/16/22 11:56 Resp 25 H 10/16/22 11:56 BP 135/67 10/16/22 11:56 Pulse Ox 98 10/16/22 11:56 FiO2 50 10/14/22 11:00 Intake & Output 10/15/22 10/16/22 10/16/22 18:59 06:59 18:59 Intake Total 220 120 90 Output Total 840 1600 1225 Balance -620 -7071 -6534 Weight 114.9 kg Intake: IV 220 120 90 .9 20 140 Invasive Line 3 60 100 80 Invasive Line 5 20 20 10 Output: Urine 840 1600 1225 Other: Voiding Method Indwelling Catheter Indwelling Catheter # Bowel Movements 1 - Exam No acute distress, oriented 3. Nasal O2 in place at 3 L. No respiratory difficulty. HEENT examination is grossly unremarkable. Neck supple. Full range of motion. No adenopathy thyromegaly or neck vein distention. Cardiovascular examination reveals regular rhythm rate. S1-S2 normal. No S3 or S4. No discernible murmur noted. Heart sounds are distant. Heart rate 78 bpm. Lungs reveal clear breath sounds. Breath sounds are equal bilaterally. No adventitious lung sounds including wheezes rhonchi or crackles. Saturations are 98% on 3 L nasal cannula. Abdomen soft bowel sounds are heard. No masses or tenderness. Extremities are intact. No cyanosis clubbing or edema. Skin is without rash or lesion. Neurologic examination is brief but nonfocal. - Labs CBC & Chem 7: 10/16/22 07:42 10/16/22 07:42 Labs: Abnormal Lab Results - Last 24 Hours (Table) 10/15/22 10/15/22 10/16/22 Range/Units 16:35 20:10 02:00 WBC (3.8-10.6) k/uL RBC (3.80-5.40) m/uL Hgb (11.4-16.0) gm/dL Hct (34.0-46.0) % MCHC (31.0-37.0) g/dL RDW (11.5-15.5) % Chloride (98-107) mmol/L Carbon Dioxide (22-30) mmol/L BUN (7-17) mg/dL Creatinine (0.52-1.04) mg/dL Glucose (74-99) mg/dL POC Glucose (mg/dL) 179 H 266 H 221 H (70-110) mg/dL 10/16/22 10/16/22 10/16/22 Range/Units 06:11 07:42 07:42 WBC 11.7 H (3.8-10.6) k/uL RBC 3.26 L (3.80-5.40) m/uL Hgb 8.6 L (11.4-16.0) gm/dL Hct 27.9 L (34.0-46.0) % MCHC 30.8 L (31.0-37.0) g/dL RDW 15.6 H (11.5-15.5) % Chloride 95 L (98-107) mmol/L Carbon Dioxide 39 H (22-30) mmol/L BUN 29 H (7-17) mg/dL Creatinine 1.10 H (0.52-1.04) mg/dL Glucose 148 H (74-99) mg/dL POC Glucose (mg/dL) 221 H (70-110) mg/dL 10/16/22 Range/Units 11:54 WBC (3.8-10.6) k/uL RBC (3.80-5.40) m/uL Hgb (11.4-16.0) gm/dL Hct (34.0-46.0) % MCHC (31.0-37.0) g/dL RDW (11.5-15.5) % Chloride (98-107) mmol/L Carbon Dioxide (22-30) mmol/L BUN (7-17) mg/dL Creatinine (0.52-1.04) mg/dL Glucose (74-99) mg/dL POC Glucose (mg/dL) 151 H (70-110) mg/dL Microbiology - Last 24 Hours (Table) 10/11/22 09:46 Blood Culture - Preliminary Blood No Growth after 120 hours 10/11/22 09:46 Blood Culture - Preliminary Blood No Growth after 120 hours Assessment and Plan Assessment: Acute on chronic hypoxemic respiratory failure secondary to acute exacerbation of diastolic congestive heart failure with subsequent finding of a small segmental right lower lobe pulmonary emboli. Non-ST segment elevation myocardial infarction . Coronary artery disease status post stenting to the left anterior descending artery with post stenting hypotension acquiring a return to the Site Safety Representative a short time later on 10/13/2022. Right radial hematoma/edema found to have a pseudoaneurysm, a follow-up ultrasound reveals stable findings. Obesity. Hypertension. Hypothyroidism. Hyperlipidemia. Diabetes mellitus. Gastric esophageal reflux disease. Obstructive sleep apnea suspected. Plan: Plan dated 10/16/2022. The patient appears be doing relatively well. She is seen today in room 382. She was transferred out of the intensive care unit. She is on 3 L, with saturations of 98%. The patient is not receiving any IV fluids. She denies any shortness of breath or difficulty breathing. She also denies any chest pain or chest discomfort. We will continue to follow make recommendations along the way. Prognosis is guarded. Time with Patient: Less than 30
--- NOTE | 2022-10-16 15:01 | P.PN ---
Subjective Progress Note Date: 10/16/22 HISTORY OF PRESENT ILLNESS: This is a 67-year-old female with a previous medical history signif icant for hypertension and hypertensive cardiovascular disease, hyperlipidemia, hypothyroidism, chronic gastroesophageal reflux disease with esophagitis, type 1 diabetes mellitus currently on insulin pump, vitamin D deficiency, diabetic neuropathy, patient also had history of spondylosis of the lumbar spine status post lumbar laminectomy back in 07/01/2022 followed by a wound dehiscence at the [facility] of the lumbar area and she ended up going back for another surgical intervention and generally fourth 2022 after that she was sent to [facility] on the [address] for physical therapy rehabilitation, she had a wound that has been treated through the wound care center for the [facility] and currently has been getting Santyl and the area has almost closed up, patient has been following with Dr. Trujillo as an outpatient for her insulin pump, and she stated that her sugar has been getting high recently she presented to the office on 10/08/2021 with increased shortness of breath has been on oxygen 3 L nasal cannula that she has been increased to 5-60 minute visit cannula, she has been complaining of increased swelling in both lower extremity is, she has been complaining of significant dyspnea on exertion, patient weight has been done up to 260, patient scheduled to go to see pulmonary to rule out obesity hypoventilation syndrome as well as obstructive sleep apnea and she was supposed to go see Dr. Foreman the office however she woke up in the morning and she was complaining of significant shortness breath, when her came to check on her she looked castro and she asked him to call 911, patient presented to the emergency department at [facility] she was found to have a significant pulmonary edema on a chest x-ray with bilateral pleural effusion, but because be elevated d-dimer, she underwent CTA of the chest that documented the pulmonary edema and possible pulmonary emboli in the right subsegmental lower lobes, and she was started on heparin drip as well as Lasix 40 mg IV push every 8 hours she was admitted to the hospital echogram was obtained, with cardiology consultation as well as pulmonary consultation 10/12: Patient is sitting up at the edge of the bed she is doing better today, she is up on oxygen to 6 L nasal cannula, she continues to diurese very well, mildly elevated potassium at 5.2, we'll decrease her potassium citrate to twice a day, continue heparin drip, continue metoprolol, continue losartan, continue to monitor the patient very closely, echocardiogram was done, venous Doppler of both lower extremity would be done to rule out any DVT, please keep the patient on heparin drip for now. 10/13: Patient is sitting up in bed and feeling better today, her troponin went up to 4.9, she was rolled into non-ST elevation WA, patient did have echocardiogram did show evidence of mild global hypokinesia with ejection fraction 50% mild mitral regurgitation and tricuspid regurgitation no pulmonary hypertension, continue patient on heparin drip, continue patient on metoprolol 25 mg orally twice every day, pulmonary consultation for evaluation of possible pulmonary emboli at the lower lobe segmental branches, patient will need to go for a heart catheter physician for evaluation of the coronary anatomy at this time, I would decrease her Lasix to 40 mg po daily 10/14: Yesterday, patient underwent left heart catheterization, PCI in the proximal LAD with stent post dilated proximal LAD with balloon. Subsequently patient developed hypotension with blood pressures in the 60s over 40s and returned to her room. To be pallid L. EKG showed significant ST elevations and some ST depressions therefore STEMI alert was activated and patient was returned to the mine laborer. Post stenting hypotension was improved by the time she reached the mine laborer felt likely related to stent thrombosis from distal stent edge stenosis. Cardiology has recommended dual antiplatelets with aspirin and Brilinta for 12 months. Patient is seen today in the intensive care unit. Chest x-ray this morning reveals mild cardiomegaly with improving pulmonary vascular congestion. Interval improvement in previous small pleural effusions as well. 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 Clinically a consult was placed with vascular surgery and they have evaluated the patient and there is no plan for surgical intervention at this time. Plan to repeat ultrasound of the right upper extremity tomorrow. Repeat blood work reveals hemoglobin of 8.2, WBC 9.5, platelet count 260. Sodium 138, potassium 4.1, BUN 35 and creatinine 0.99. ProBNP 6040. Magnesium 1.7. TSH 2.89 and free T4 1 0.83. Repeat echocardiogram reveals Re: Possible pulmonary embolism, ultrasound of bilateral lower extremities negative for DVT. Patient will be started on oral anticoagulation once cleared by consultants. 3/21: Patient remains in the ICU but has been down graded to 3S. marek is on hold for possible surgical intervention by vascular surgery. Repeat ultrasound of the right upper extremity revealed stable pseudoaneurysm measuring 1.2 x 0.9 x 0.6 cm arising from the right ulnar artery. Neck is similar in size. Patient has had good urine output and Parker can be removed following surgery. Patient general states she is feeling much better, no shortness of breath and no chest pain. Patient's is at bedside. Repeat blood work reveals hemoglobin of 8.1, BUN 32 creatinine 1.08. Potassium 4.3. Blood sugars are running between 124-147. 10/16: Patient is seen today on the cardiac stepdown unit. Patient remains afebrile, heart rate in the 70s and 80s, blood pressure 144/70, pulse ox 97% on 3 L nasal cannula. Repeat blood work reveals WBC 11.7, hemoglobin 8.6, platelet count 270. Sodium 140, potassium 3.6, chloride 95, CO2 39, BUN 29 creatinine 1 .1. Blood sugar 148. White blood glucose running between 179 and 266. Patient is scheduled for right ulnar artery repair with Dr. Ayala today. REVIEW OF SYSTEMS: Constitutional: No documented fever, no chills, no night sweats. positive for significant weight gain No weakness, fatigue or lethargy. No daytime sleepiness. HEENT: No headache. No blurred vision or double vision, no loss of vision. No loss of Hearing, no ringing in the ears, no dizziness. No nasal drainage or congestion. No epistaxis. No sore throat. Lungs: positive for shortness of breath, occasional cough, no sputum production. No wheezing. Reports dyspnea with activity, positive for orthopneam and PND Cardiovascular: No chest pain, positive for lower extremity edema. positive for palpitations. positive for paroxysmal nocturnal dyspnea. positive for orthopnea. No lightheadedness or dizziness. No syncopal episodes. Abdominal: Reports no abdominal pain. positive for nausea, vomiting. No diarrhea. No constipation. No bloody or tarry stools reports loss of appetite. Genitourinary: No dysuria, increased frequency, urgency. No urinary retention. Musculoskeletal: No myalgias. positive for muscle weakness, positive for gait dysfunction, no frequent falls. positive for back pain. No neck pain. Mild discomfort right wrist. Integumentary: positive for lumbar wound that is covered with santyl , no lesions. No rash or pruritus. No unusual bruising. No change in hair or nails. Neurologic: No aphasia. No facial droop. No change in mentation. No head injury. No headache. No paralysis. No paresthesia. Psychiatric: No depression. No anxiety. No mood swings. Endocrine: positive for mildly abnormal blood sugars. positive for weight change. PHYSICAL EXAMINATION: General: 67-year-old female laying down in bed in moderate respiratory distress HEENT: Head is atraumatic, normocephalic, pupils were equal round reactive to light and recommendation, extraocular muscle movement were intact, sclera nonicteric, conjunctivae were pale, mucous membranes of the mouth are somewhat dry. Neck: Supple, no JVP, normal carotid upstroke bilaterally, no lymphadenopathy. Chest: Decreased breath sounds at the bases, few rhonchi, positive for expiratory wheezes, no chest wall tenderness, minimal intercostal retractions. Heart: First heart sound is normal, second heart sound is normal tachycardic there is systolic ejection murmur 2/6 located in the left sternal border. Abdomen: Soft, nontender, nondistended, positive bowel sounds. 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 ASSESSMENT AND PLAN: 1. Acute on chronic hypoxemic respiratory failure due to pulmonary edema due to acute systolic heart failure as well as right lower lobes pulmonary emboli. Continue furosemide 40 mg po daily, continue metoprolol 25 mg orally twice every day, continue losartan 100 mg orally once every day. Consult with cardiology and pulmonary medicine appreciated. 2. Pulmonary edema with acute diastolic heart failure Continue furosemide 40 mg po daily continue metoprolol 25 mg orally twice every day, continue losartan 100 mg orally once every day, reviewed echocardiogram. 3. Right subsegmental branches of the lower lobes pulmonary emboli. Hold on eliquis for now for surgical intervention. 4. One episode of atrial flutter with RVR. Please refer to the 12-lead EKG in the chart. Continue metoprolol 25 mg orally twice every day. 5. Non-ST elevated myocardial infarction status post cardiac catheterization and PCI of the LAD and balloon to the proximal LAD. Continue patient on Brilinta 90 mg twice daily, aspirin 81 mg daily, atorvastatin 20 mg daily, metoprolol 25 mg twice daily. 6. Hypotension following PCI thought to be related to stent thrombosis from the distal stent edge. 7. Right upper extremity hematoma status post ulnar artery access for cardiac catheterization. Scheduled for right ulnar artery repair by Dr. Ayala 10/16. 8. Hypertension and hypertensive cardiovascular disease. Continue patient on metoprolol 25 mg orally twice every day, losartan 100 mg orally once every day, monitor the patient very closely. 9. Hyperlipidemia. continue atorvastatin 20 mg orally once every day, monitor the patient the benefit, keep LDL 55-70. 10. Hypothyroidism. Continue patient on Synthroid 112 g orally once every day. 11. Diabetes mellitus type 1. on Levemir 50 units at bedtime along with NovoLog 12 units plus the sliding scale insulin. 12. GERD with esophagitis and hiatal hernia. Continue patient on Protonix 40 mg once every day. 13. Obesity with obstructive sleep apnea and possible obesity hypoventilation syndrome patient will need to have a sleep study as an outpatient. 14. Vitamin D deficiency. Continue vitamin D3 2000 units once every day. 15. History of kidney stones. 16. DVT prophylaxis. Continue patient on heparin subcu. 14. GI prophylaxis. Continue PPI. 15. Lumbar dehiscence after surgery at [facility] postlaminectomy continue with local wound care with Santyl every day. 16. Guarded prognosis. Impression and plan of care have been directed as dictated by the signing physician. Lili Lancaster nurse practitioner acting as scribe for signing physician. Objective - Vital Signs Vital signs: Vital Signs Temp 98.9 F 10/16/22 08:43 Pulse 81 10/16/22 08:43 Resp 23 10/16/22 08:43 BP 144/70 10/16/22 08:43 Pulse Ox 97 10/16/22 09:54 FiO2 50 10/14/22 11:00 Intake & Output 10/15/22 10/16/22 10/16/22 18:59 06:59 18:59 Intake Total 220 120 90 Output Total 840 1600 700 Balance -620 -1480 -610 Intake: IV 220 120 90 .9 20 140 Invasive Line 3 60 100 80 Invasive Line 5 20 20 10 Output: Urine 840 1600 700 Other: Voiding Method Indwelling Catheter # Bowel Movements 1 - Labs CBC & Chem 7: 10/16/22 07:42 10/16/22 07:42 Labs: Abnormal Lab Results - Last 24 Hours (Table) 10/15/22 10/15/22 10/15/22 Range/Units 11:45 16:35 20:10 WBC (3.8-10.6) k/uL RBC (3.80-5.40) m/uL Hgb (11.4-16.0) gm/dL Hct (34.0-46.0) % MCHC (31.0-37.0) g/dL RDW (11.5-15.5) % Chloride (98-107) mmol/L Carbon Dioxide (22-30) mmol/L BUN (7-17) mg/dL Creatinine (0.52-1.04) mg/dL Glucose (74-99) mg/dL POC Glucose (mg/dL) 147 H 179 H 266 H (70-110) mg/dL 10/16/22 10/16/22 10/16/22 Range/Units 02:00 06:11 07:42 WBC 11.7 H (3.8-10.6) k/uL RBC 3.26 L (3.80-5.40) m/uL Hgb 8.6 L (11.4-16.0) gm/dL Hct 27.9 L (34.0-46.0) % MCHC 30.8 L (31.0-37.0) g/dL RDW 15.6 H (11.5-15.5) % Chloride (98-107) mmol/L Carbon Dioxide (22-30) mmol/L BUN (7-17) mg/dL Creatinine (0.52-1.04) mg/dL Glucose (74-99) mg/dL POC Glucose (mg/dL) 221 H 221 H (70-110) mg/dL 10/16/22 Range/Units 07:42 WBC (3.8-10.6) k/uL RBC (3.80-5.40) m/uL Hgb (11.4-16.0) gm/dL Hct (34.0-46.0) % MCHC (31.0-37.0) g/dL RDW (11.5-15.5) % Chloride 95 L (98-107) mmol/L Carbon Dioxide 39 H (22-30) mmol/L BUN 29 H (7-17) mg/dL Creatinine 1.10 H (0.52-1.04) mg/dL Glucose 148 H (74-99) mg/dL POC Glucose (mg/dL) (70-110) mg/dL Microbiology - Last 24 Hours (Table) 10/11/22 09:46 Blood Culture - Preliminary Blood No Growth after 96 hours 10/11/22 09:46 Blood Culture - Preliminary Blood No Growth after 96 hours
[2022-10-16] MEDS: SODIUM CHLORIDE 0.9% 1,000 ML in EMPTY BAG 1 BAG IV SCH (15:13)
--- NOTE | 2022-10-16 16:24 | P.PN ---
Subjective Progress Note Date: 10/16/22 Principal diagnosis: ulnar artery aneurysm patient seen and examined. States pain is worse this morning at her right hand and wrist. She denies any fevers, chills, chest pain or shortness of breath. Objective - Vital Signs Vital signs: Vital Signs Temp 98.7 F 10/16/22 11:56 Pulse 78 10/16/22 11:56 Resp 25 H 10/16/22 11:56 BP 135/67 10/16/22 11:56 Pulse Ox 98 10/16/22 11:56 FiO2 50 10/14/22 11:00 Intake & Output 10/15/22 10/16/22 10/16/22 18:59 06:59 18:59 Intake Total 220 120 90 Output Total 840 1600 1825 Balance -620 -1480 -1735 Weight 114.9 kg Intake: IV 220 120 90 .9 20 140 Invasive Line 3 60 100 80 Invasive Line 5 20 20 10 Output: Urine 840 1600 1825 Other: Voiding Method Indwelling Catheter Indwelling Catheter # Bowel Movements 1 - Exam right wrist with echymosis, tenderness to palpation. Palpable pulsatile mass over the ulnar artery. - Constitutional General appearance: Present: morbidly obese - EENT Eyes: Present: PERRLA - Respiratory Respiratory: bilateral: CTA - Cardiovascular Rhythm: regular - Labs CBC & Chem 7: 10/16/22 07:42 10/16/22 07:42 Labs: Abnormal Lab Results - Last 24 Hours (Table) 10/15/22 10/15/22 10/16/22 Range/Units 16:35 20:10 02:00 WBC (3.8-10.6) k/uL RBC (3.80-5.40) m/uL Hgb (11.4-16.0) gm/dL Hct (34.0-46.0) % MCHC (31.0-37.0) g/dL RDW (11.5-15.5) % Chloride (98-107) mmol/L Carbon Dioxide (22-30) mmol/L BUN (7-17) mg/dL Creatinine (0.52-1.04) mg/dL Glucose (74-99) mg/dL POC Glucose (mg/dL) 179 H 266 H 221 H (70-110) mg/dL 10/16/22 10/16/22 10/16/22 Range/Units 06:11 07:42 07:42 WBC 11.7 H (3.8-10.6) k/uL RBC 3.26 L (3.80-5.40) m/uL Hgb 8.6 L (11.4-16.0) gm/dL Hct 27.9 L (34.0-46.0) % MCHC 30.8 L (31.0-37.0) g/dL RDW 15.6 H (11.5-15.5) % Chloride 95 L (98-107) mmol/L Carbon Dioxide 39 H (22-30) mmol/L BUN 29 H (7-17) mg/dL Creatinine 1.10 H (0.52-1.04) mg/dL Glucose 148 H (74-99) mg/dL POC Glucose (mg/dL) 221 H (70-110) mg/dL 10/16/22 Range/Units 11:54 WBC (3.8-10.6) k/uL RBC (3.80-5.40) m/uL Hgb (11.4-16.0) gm/dL Hct (34.0-46.0) % MCHC (31.0-37.0) g/dL RDW (11.5-15.5) % Chloride (98-107) mmol/L Carbon Dioxide (22-30) mmol/L BUN (7-17) mg/dL Creatinine (0.52-1.04) mg/dL Glucose (74-99) mg/dL POC Glucose (mg/dL) 151 H (70-110) mg/dL Microbiology - Last 24 Hours (Table) 10/11/22 09:46 Blood Culture - Preliminary Blood No Growth after 120 hours 10/11/22 09:46 Blood Culture - Preliminary Blood No Growth after 120 hours Assessment and Plan Assessment: right ulnar artery pseudoaneurysm CAD with previous cardiac cath via right ulnar artery morbid obesity Plan: Reviewed ultrasounds and pseudoaneuysm increased in size. Discussed with patient and that it is unlikely to resolve due to DAPT and anticoagulation. Going to OR for right ulnar artery repair. Consent signed and in chart. All questions answered.
[2022-10-16] MEDS ORDERED: LACTATED RINGERS 1,000 ML IV ONE (16:31)
[2022-10-16] MEDS ORDERED: KETAMINE 10 MG/ML 20 ML VIAL ONE (17:26)
[2022-10-16] MEDS ORDERED: PROPOFOL 10 MG/ML 20 ML VIAL IV ONE (17:26)
[2022-10-16] MEDS ORDERED: MIDAZOLAM 2 MG/2 ML VIAL ONE (17:26)
[2022-10-16] MEDS ORDERED: SODIUM CHLORIDE 0.9% 50 ML with ceFAZolin 3,000 MG IV ONE ×2 (17:49)
[2022-10-16] MEDS ORDERED: LIDOCAINE 1% INJ 10MG/ML (20 ML MDV) SQ ONE (17:51)
[2022-10-16] MEDS ORDERED: HEPARIN SODIUM,PORCINE 2,000 UNIT in SODIUM CHLORIDE 0.9% 500 ML 500 ML IRRIGATION ONE (17:53)
--- NOTE | 2022-10-16 18:32 | P.OP ---
Date of Procedure: 10/16/22 Preoperative Diagnosis: right ulnar artery pseudoaneurysm Postoperative Diagnosis: same Procedure(s) Performed: Right wrist exploration with control of hemorrhage Right ulnar artery pseudoaneurysm repair Anesthesia: local (with sedation) Surgeon: Thomas Ayala Forensic Social Worker #1: Elodia Parker Estimated Blood Loss (ml): 20 Pathology: none sent Condition: stable Disposition: PACU Indications for Procedure: 67 year old female with history of recent cardiac cath and stenting via the right ulnar artery who developed a pseudoaneurysm that has increased in size over the last couple of days presents to the OR for open repair. She is on DAPT and needs anticoagulation for PE's and therefore repair was recommended instead of watchful waiting or thrombin injection. Description of Procedure: After written and informed consent was obtained the patient and all risks, benefits and competitions were described the patient was brought to the operative suite and laid in a supine position with her right arm outstretched on an armboard. The area of the right wrist and arm were prepped and draped in usual sterile fashion after appropriate anesthetic was performed per the anesthesiologist. A timeout was performed in normal fashion antibiotics were administered prior to incision. Utilizing ultrasound the ulnar artery aneurysm was located and a vertical incision was then created with a 15 blade scalpel after local was infused overlying the aneurysm. Dissection was then carried down with electrocautery to the fascia the fascia was incised. Pseudoaneurysm was located and dissection was carried around this area. Proximal distal control was obtained of the pseudoaneurysm was dissected free and removed. Pulsatile blood flow was visualized from the puncture site. Utilizing 6-0 Prolene to sutures were then placed for control. All control was then released revealing good pulse distal to the repair. Utilizing Doppler good multiphasic signal was noted at the wrist. The radial artery was occluded with pressure and good pulse was noted in the palmar arch. The area was then copiously irrigated with antibiotic solution and the incision was closed in a multilayer fashion. The skin was cleansed and dressings were placed. Patient tolerated the procedure well and was sent to PACU for recovery.
[2022-10-16 19:18] LABS: Glucose,Whole Blood 171 mg/dL (70-110)
[2022-10-16] MEDS: TICAGRELOR 90 MG TAB PO SCH ×2 (20:16→20:30)
[2022-10-16] MEDS: INSULIN DETEMIR (LEVEMIR) 100 UNIT/ML SYR SQ SCH (20:18)
[2022-10-16] MEDS: NYSTATIN 100,000 UNIT/GM POWD 15 GM TOPICAL SCH ×2 (20:19→20:30)
[2022-10-16] MEDS: ASPIRIN 81 MG PO SCH (20:30)
[2022-10-17] MEDS: ACETAMINOPHEN TAB 325 MG TAB PO PRN ×3 (01:59→18:18)
[2022-10-17 02:00] LABS: Glucose,Whole Blood 171 mg/dL (70-110)
[2022-10-17 06:17] LABS: Glucose,Whole Blood 127 mg/dL (70-110)
[2022-10-17] MEDS: INSULIN ASPART (NovoLOG) 100 UNIT/ML VIAL SQ SCH ×7 (06:57→21:12)
[2022-10-17] MEDS: LEVOTHYROXINE 112 MCG TAB PO SCH (07:06)
[2022-10-17] MEDS: PANTOPRAZOLE 40 MG TABLET PO SCH (07:06)
[2022-10-17 08:43] LABS: HCT 26.4 % (34.0-46.0); HGB 8.3 gm/dL (11.4-16.0); Hypochromasia Moderate; MCH 26.4 pg (25.0-35.0); MCHC 31.3 g/dL (31.0-37.0); MCV 84.2 fL (80.0-100.0); Mean Platelet Volume 7.6; Platelet Count 265 k/uL (150-450); RBC 3.14 m/uL (3.80-5.40); RDW 15.4 % (11.5-15.5); WBC 11.6 k/uL (3.8-10.6)
[2022-10-17 08:54] LABS: Calcium 8.5 mg/dL (8.4-10.2); Potassium 3.6 mmol/L (3.5-5.1)
--- NOTE | 2022-10-17 08:57 | P.PN ---
Subjective Progress Note Date: 10/17/22 Principal diagnosis: Pseudoaneurysm She was seen and examined today as a follow-up. Yesterday she underwent right wrist exploration with control of hemorrhage and ulnar pseudoaneurysm repair. Today she states pain is significantly improved. Does have bruising on the right wrist and forearm. She has good range of motion in the right upper extremity and hand. Hemoglobin 8.3 stable from 8.6 yesterday. Objective - Vital Signs Vital signs: Vital Signs Temp 98.6 F 10/17/22 04:00 Pulse 71 10/17/22 04:00 Resp 16 10/17/22 04:00 BP 118/57 10/17/22 04:00 Pulse Ox 96 10/17/22 04:00 FiO2 50 10/14/22 11:00 Intake & Output 10/16/22 10/17/22 10/17/22 18:59 06:59 18:59 Intake Total 341 Output Total 2295 275 360 Balance -[id number] 360 Weight 114.9 kg Intake: IV 341 Invasive Line 3 80 Invasive Line 5 10 Output: Urine 2275 275 360 Estimated Blood Loss 20 Other: Voiding Method Indwelling Catheter - Exam General appearance: The patient is alert, oriented, appears in no acute di stress. HET: Head is normocephalic and atraumatic. Pupils are equal and reactive. Neck: Supple. Heart: Regular. Lungs: Equal expansion, normal respiratory effort. Abdomen: Soft, nontender, nondistended. Extremities: Right upper extremity with good mobility, sensorimotor intact. Good range of motion of fingers and hand. Ecchymosis right wrist and forearm, palpable radial ulnar pulse. Incision well approximated, no bleeding noted. Neurological: No focal deficits. - Labs CBC & Chem 7: 10/17/22 07:51 10/16/22 07:42 Labs: Abnormal Lab Results - Last 24 Hours (Table) 10/16/22 10/16/22 10/16/22 Range/Units 07:42 07:42 11:54 WBC 11.7 H (3.8-10.6) k/uL RBC 3.26 L (3.80-5.40) m/uL Hgb 8.6 L (11.4-16.0) gm/dL Hct 27.9 L (34.0-46.0) % MCHC 30.8 L (31.0-37.0) g/dL RDW 15.6 H (11.5-15.5) % Chloride 95 L (98-107) mmol/L Carbon Dioxide 39 H (22-30) mmol/L BUN 29 H (7-17) mg/dL Creatinine 1.10 H (0.52-1.04) mg/dL Glucose 148 H (74-99) mg/dL POC Glucose (mg/dL) 151 H (70-110) mg/dL 10/16/22 10/17/22 10/17/22 Range/Units 19:17 01:59 06:15 WBC (3.8-10.6) k/uL RBC (3.80-5.40) m/uL Hgb (11.4-16.0) gm/dL Hct (34.0-46.0) % MCHC (31.0-37.0) g/dL RDW (11.5-15.5) % Chloride (98-107) mmol/L Carbon Dioxide (22-30) mmol/L BUN (7-17) mg/dL Creatinine (0.52-1.04) mg/dL Glucose (74-99) mg/dL POC Glucose (mg/dL) 171 H 171 H 127 H (70-110) mg/dL 10/17/22 Range/Units 07:51 WBC 11.6 H (3.8-10.6) k/uL RBC 3.14 L (3.80-5.40) m/uL Hgb 8.3 L (11.4-16.0) gm/dL Hct 26.4 L (34.0-46.0) % MCHC (31.0-37.0) g/dL RDW (11.5-15.5) % Chloride (98-107) mmol/L Carbon Dioxide (22-30) mmol/L BUN (7-17) mg/dL Creatinine (0.52-1.04) mg/dL Glucose (74-99) mg/dL POC Glucose (mg/dL) (70-110) mg/dL Microbiology - Last 24 Hours (Table) 10/11/22 09:46 Blood Culture - Preliminary Blood No Growth after 120 hours 10/11/22 09:46 Blood Culture - Preliminary Blood No Growth after 120 hours Assessment and Plan Assessment: 1. Right ulnar artery pseudoaneurysm status post right wrist exploration with control of hemorrhage and ulnar pseudoaneurysm repair 2. NSTEMI status post PCI proximal LAD 10/13/2022 3. Hypotension post PCI 4. Shortness of breath 5. Possible pulmonary embolism 6. Diabetes mellitus 7. History of TIA 8. Recent lumbar surgery done in June 2022, with nonhealing wound Plan: 1. Continue symptomatic and supportive care 2. Continue medical management per primary medical team 3. Continue with recommendations from cardiology 4. Patient may shower, no tub bathing 5. May resume anticoagulation per recommendations from medical/cardiology teams Thank you for this consultation, the patient is stable for discharge from a vascular surgical standpoint. We will sign off at this time. Follow-up with Dr. Ayala in 1-2 weeks. The impression and plan of care has been dictated as directed. Dr. Eastman I performed a history and examination of this patient, discussed the same with the dictator. I agree with the dictator's note ,documented as a scribe. Any additional findings or plans will be noted.
[2022-10-17] MEDS: FAMOTIDINE 20 MG TAB PO SCH (09:05)
[2022-10-17] MEDS: ASPIRIN 81 MG PO SCH (09:05)
[2022-10-17] MEDS: LOSARTAN 50 MG TAB PO SCH (09:05)
[2022-10-17] MEDS: ATORVASTATIN 40 MG TAB PO SCH (09:05)
[2022-10-17] MEDS: METOPROLOL TARTRATE 25 MG TAB PO SCH ×2 (09:05→21:12)
[2022-10-17] MEDS: FUROSEMIDE 40 MG TAB PO SCH (09:05)
[2022-10-17] MEDS: TICAGRELOR 90 MG TAB PO SCH ×2 (09:05→21:12)
[2022-10-17] MEDS: POTASSIUM CITRATE 10 MEQ TABLET.ER PO SCH ×2 (09:05→21:12)
[2022-10-17 11:40] LABS: Glucose,Whole Blood 152 mg/dL (70-110)
--- NOTE | 2022-10-17 12:40 | P.PN ---
Subjective Progress Note Date: 10/17/22 HISTORY OF PRESENT ILLNESS: Patient is status post cardiac catheterization on 10/13/2022 revealing 90% proximal LAD, 70% diagonal 1 stenosis, mid LAD 40-50% stenosis, and RCA 30-40% s tenosis. Patient underwent stenting of the proximal LAD. Patient developed right ulnar artery pseudoaneurysm and is scheduled for repair today with vascular surgery. Patient denies chest pain or pressure. Denies SOB. Vital signs are stable. 10/17/2022 Patient examined this morning at the bedside. Patient denies chest pain or pressure. She denies shortness of breath. She is status post repair of right ulnar artery pseudoaneurysm. Vital signs are stable. Hemoglobin remains stable. PHYSICAL EXAM: VITAL SIGNS: Reviewed. GENERAL: Well-developed in no acute distress. NECK: Supple. No JVD or thyromegaly LUNGS: Respirations even and unlabored. Lungs essentially clear to auscultation bilaterally. HEART: Regular rate and rhythm. S1 and S2 heard. EXTREMITIES: Normal range of motion. No clubbing or cyanosis. Peripheral pulses intact. No lower extremity edema. ASSESSMENT: NSTEMI, s/p cardiac cath with PCI to proximal LAD Post stenting hypotension, resolved Right ulnar artery pseudoaneurysm, s/p repair Acute on chronic hypoxic respiratory failure Pulmonary edema Pulmonary embolism Hypertension Hyperlipidemia Diabetes Hypothyroidism PLAN: Continue aspirin and brilinta. Continue additional cardiac medications Defer need for anticoagulation for PE to pulmonary medicine Further recommendations pending patient course Nurse practitioner note has been reviewed by physician. Signing provider agrees with the documented findings, assessment, and plan of care. Objective - Vital Signs Vital signs: Vital Signs Temp 98.6 F 10/17/22 04:00 Pulse 71 10/17/22 04:00 Resp 16 10/17/22 04:00 BP 118/57 10/17/22 04:00 Pulse Ox 98 10/17/22 09:06 FiO2 50 10/14/22 11:00 Intake & Output 10/16/22 10/17/22 10/17/22 18:59 06:59 18:59 Intake Total 341 118 Output Total 8921 275 360 Balance -1954 -275 -242 Weight 114.9 kg Intake: IV 341 Invasive Line 3 80 Invasive Line 5 10 Oral 118 Output: Urine 2855 275 360 Estimated Blood Loss 20 Other: Voiding Method Indwelling Catheter - Labs CBC & Chem 7: 10/17/22 07:51 10/17/22 07:51 Labs: Abnormal Lab Results - Last 24 Hours (Table) 10/16/22 10/17/22 10/17/22 Range/Units 19:17 01:59 06:15 WBC (3.8-10.6) k/uL RBC (3.80-5.40) m/uL Hgb (11.4-16.0) gm/dL Hct (34.0-46.0) % Chloride (98-107) mmol/L Carbon Dioxide (22-30) mmol/L BUN (7-17) mg/dL Creatinine (0.52-1.04) mg/dL POC Glucose (mg/dL) 171 H 171 H 127 H (70-110) mg/dL 10/17/22 10/17/22 10/17/22 Range/Units 07:51 07:51 11:38 WBC 11.6 H (3.8-10.6) k/uL RBC 3.14 L (3.80-5.40) m/uL Hgb 8.3 L (11.4-16.0) gm/dL Hct 26.4 L (34.0-46.0) % Chloride 96 L (98-107) mmol/L Carbon Dioxide 40 H (22-30) mmol/L BUN 22 H (7-17) mg/dL Creatinine 1.05 H (0.52-1.04) mg/dL POC Glucose (mg/dL) 152 H (70-110) mg/dL Microbiology - Last 24 Hours (Table) 10/11/22 09:46 Blood Culture - Final Blood No Growth after 144 hours 10/11/22 09:46 Blood Culture - Final Blood No Growth after 144 hours
--- NOTE | 2022-10-17 13:04 | P.PN ---
Subjective Progress Note Date: 10/17/22 HISTORY OF PRESENT ILLNESS: This is a 67-year-old female with a previous medical history signif icant for hypertension and hypertensive cardiovascular disease, hyperlipidemia, hypothyroidism, chronic gastroesophageal reflux disease with esophagitis, type 1 diabetes mellitus currently on insulin pump, vitamin D deficiency, diabetic neuropathy, patient also had history of spondylosis of the lumbar spine status post lumbar laminectomy back in 07/01/2022 followed by a wound dehiscence at the [facility] of the lumbar area and she ended up going back for another surgical intervention and generally fourth 2022 after that she was sent to [facility] on the [address] [place] for physical therapy rehabilitation, she had a wound that has been treated through the wound care center for the [facility] and currently has been getting Santyl and the area has almost closed up, patient has been following with Dr. Trujillo as an outpatient for her insulin pump, and she stated that her sugar has been getting high recently she presented to the office on 10/08/2021 with increased shortness of breath has been on oxygen 3 L nasal cannula that she has been increased to 5-60 minute visit cannula, she has been complaining of increased swelling in both lower extremity is, she has been complaining of significant dyspnea on exertion, patient weight has been done up to 260, patient scheduled to go to see pulmonary to rule out obesity hypoventilation syndrome as well as obstructive sleep apnea and she was supposed to go see Dr. Foreman the office however she woke up in the morning and she was complaining of significant shortness breath, when her came to check on her she looked castro and she asked him to call 911, patient presented to the emergency department at [facility] she was found to have a significant pulmonary edema on a chest x-ray with bilateral pleural effusion, but because be elevated d-dimer, she underwent CTA of the chest that documented the pulmonary edema and possible pulmonary emboli in the right subsegmental lower lobes, and she was started on heparin drip as well as Lasix 40 mg IV push every 8 hours she was admitted to the hospital echogram was obtained, with cardiology consultation as well as pulmonary consultation 10/12: Patient is sitting up at the edge of the bed she is doing better today, she is up on oxygen to 6 L nasal cannula, she continues to diurese very well, mildly elevated potassium at 5.2, we'll decrease her potassium citrate to twice a day, continue heparin drip, continue metoprolol, continue losartan, continue to monitor the patient very closely, echocardiogram was done, venous Doppler of both lower extremity would be done to rule out any DVT, please keep the patient on heparin drip for now. 10/13: Patient is sitting up in bed and feeling better today, her troponin went up to 4.9, she was rolled into non-ST elevation [facility], patient did have echocardiogram did show evidence of mild global hypokinesia with ejection fraction 50% mild mitral regurgitation and tricuspid regurgitation no pulmonary hypertension, continue patient on heparin drip, continue patient on metoprolol 25 mg orally twice every day, pulmonary consultation for evaluation of possible pulmonary emboli at the lower lobe segmental branches, patient will need to go for a heart catheter physician for evaluation of the coronary anatomy at this time, I would decrease her Lasix to 40 mg po daily 10/14: Yesterday, patient underwent left heart catheterization, PCI in the proximal LAD with stent post dilated proximal LAD with balloon. Subsequently patient developed hypotension with blood pressures in the 60s over 40s and returned to her room. To be pallid L. EKG showed significant ST elevations and some ST depressions therefore STEMI alert was activated and patient was returned to the [facility]. Post stenting hypotension was improved by the time she reached the [facility] felt likely related to stent thrombosis from distal stent edge stenosis. Cardiology has recommended dual antiplatelets with aspirin and Brilinta for 12 months. Patient is seen today in the intensive care unit. Chest x-ray this morning reveals mild cardiomegaly with improving pulmonary vascular congestion. Interval improvement in previous small pleural effusions as well. 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 Clinically a consult was placed with vascular surgery and they have evaluated the patient and there is no plan for surgical intervention at this time. Plan to repeat ultrasound of the right upper extremity tomorrow. Repeat blood work reveals hemoglobin of 8.2, WBC 9.5, platelet count 260. Sodium 138, potassium 4.1, BUN 35 and creatinine 0.99. ProBNP 6040. Magnesium 1.7. TSH 2.89 and free T4 1 0.83. Repeat echocardiogram reveals Re: Possible pulmonary embolism, ultrasound of bilateral lower extremities negative for DVT. Patient will be started on oral anticoagulation once cleared by consultants. 3/21: Patient remains in the ICU but has been down graded to 3S. marek is on hold for possible surgical intervention by vascular surgery. Repeat ultrasound of the right upper extremity revealed stable pseudoaneurysm measuring 1.2 x 0.9 x 0.6 cm arising from the right ulnar artery. Neck is similar in size. Patient has had good urine output and Parker can be removed following surgery. Patient general states she is feeling much better, no shortness of breath and no chest pain. Patient's is at bedside. Repeat blood work reveals hemoglobin of 8.1, BUN 32 creatinine 1.08. Potassium 4.3. Blood sugars are running between 124-147. 10/16: Patient is seen today on the cardiac stepdown unit. Patient remains afebrile, heart rate in the 70s and 80s, blood pressure 144/70, pulse ox 97% on 3 L nasal cannula. Repeat blood work reveals WBC 11.7, hemoglobin 8.6, platelet count 270. Sodium 140, potassium 3.6, chloride 95, CO2 39, BUN 29 creatinine 1 .1. Blood sugar 148. White blood glucose running between 179 and 266. Patient is scheduled for right ulnar artery repair with Dr. Ayala today. 10/17: Last evening, patient underwent right wrist exploration with control of hemorrhage and right ulnar artery pseudoaneurysm repair with Dr. Ayala. This morning, pain is improved to the right wrist. She has good range of motion. Vascular surgery has cleared the patient to start anticoagulation and plan follow-up in one to 2 weeks in the office. Patient remains afebrile, heart rate in the 70s, blood pressure 118/57 and pulse ox 98% on 2 L nasal cannula. WBC 11.6, hemoglobin 8.3 which is down from 8.6 yesterday. Platelet count 264. BUN 22 and creatinine 1.05. Capillary blood glucose running between 127-171. Discussed with Dr. Kong and in agreement to start patient on anticoagulation. BM yesterday was normal. REVIEW OF SYSTEMS: Constitutional: No documented fever, no chills, no night sweats. positive for significant weight gain No weakness, fatigue or lethargy. No daytime sleepiness. HEENT: No headache. No blurred vision or double vision, no loss of vision. No loss of Hearing, no ringing in the ears, no dizziness. No nasal drainage or congestion. No epistaxis. No sore throat. Lungs: positive for shortness of breath, occasional cough, no sputum production. No wheezing. Reports dyspnea with activity, positive for orthopneam and PND Cardiovascular: No chest pain, positive for lower extremity edema. positive for palpitations. positive for paroxysmal nocturnal dyspnea. positive for orthopnea. No lightheadedness or dizziness. No syncopal episodes. Abdominal: Reports no abdominal pain. positive for nausea, vomiting. No diarrhea. No constipation. No bloody or tarry stools reports loss of appetite. Genitourinary: No dysuria, increased frequency, urgency. No urinary retention. Musculoskeletal: No myalgias. positive for muscle weakness, positive for gait dysfunction, no frequent falls. positive for back pain. No neck pain. Mild discomfort right wrist with bruising-improved. Integumentary: positive for lumbar wound that is covered with santyl , no lesions. No rash or pruritus. No unusual bruising. No change in hair or nails. Neurologic: No aphasia. No facial droop. No change in mentation. No head injury. No headache. No paralysis. No paresthesia. Psychiatric: No depression. No anxiety. No mood swings. Endocrine: positive for mildly abnormal blood sugars. positive for weight change. PHYSICAL EXAMINATION: General: 67-year-old female laying down in bed in moderate respiratory distress HEENT: Head is atraumatic, normocephalic, pupils were equal round reactive to light and recommendation, extraocular muscle movement were intact, sclera nonicteric, conjunctivae were pale, mucous membranes of the mouth are somewhat dry. Neck: Supple, no JVP, normal carotid upstroke bilaterally, no lymphadenopathy. Chest: Decreased breath sounds at the bases, few rhonchi, positive for expiratory wheezes, no chest wall tenderness, minimal intercostal retractions. Heart: First heart sound is normal, second heart sound is normal tachycardic there is systolic ejection murmur 2/6 located in the left sternal border. Abdomen: Soft, nontender, nondistended, positive bowel sounds. 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 ASSESSMENT AND PLAN: 1. Acute on chronic hypoxemic respiratory failure due to pulmonary edema due to acute systolic heart failure as well as right lower lobes pulmonary emboli. Continue furosemide 40 mg po daily, continue metoprolol 25 mg orally twice every day, continue losartan 100 mg orally once every day. Consult with cardiology and pulmonary medicine appreciated. 2. Pulmonary edema with acute diastolic heart failure Continue furosemide 40 mg po daily continue metoprolol 25 mg orally twice every day, continue losartan 100 mg orally once every day, reviewed echocardiogram. 3. Right subsegmental branches of the lower lobes pulmonary emboli. Start eliquis. 4. One episode of atrial flutter with RVR. Please refer to the 12-lead EKG in the chart. Continue metoprolol 25 mg orally twice every day. 5. Non-ST elevated myocardial infarction status post cardiac catheterization and PCI of the LAD and balloon to the proximal LAD. Continue patient on Brilinta 90 mg twice daily, aspirin 81 mg daily, atorvastatin 20 mg daily, metoprolol 25 mg twice daily. 6. Hypotension following PCI thought to be related to stent thrombosis from the distal stent edge. 7. Right upper extremity hematoma status post ulnar artery access for cardiac catheterization. S/p right ulnar artery repair by Dr. Ayala 10/16. 8. Hypertension and hypertensive cardiovascular disease. Continue patient on metoprolol 25 mg orally twice every day, losartan 100 mg orally once every day, monitor the patient very closely. 9. Hyperlipidemia. continue atorvastatin 20 mg orally once every day, monitor the patient the benefit, keep LDL 55-70. 10. Hypothyroidism. Continue patient on Synthroid 112 g orally once every day. 11. Diabetes mellitus type 1. on Levemir 50 units at bedtime along with NovoLog 12 units plus the sliding scale insulin. 12. GERD with esophagitis and hiatal hernia. Continue patient on Protonix 40 mg once every day. 13. Obesity with obstructive sleep apnea and possible obesity hypoventilation syndrome patient will need to have a sleep study as an outpatient. 14. Vitamin D deficiency. Continue vitamin D3 2000 units once every day. 15. History of kidney stones. 16. DVT prophylaxis. Continue patient on eliquis. 14. GI prophylaxis. Continue PPI. 15. Lumbar dehiscence after surgery at [facility] postlaminectomy continue with local wound care with Santyl every day. 16. Chronic hypoxic respiratory failure with home O2 at 3 L nasal cannula. Discharge Plan: home with home care Impression and plan of care have been directed as dictated by the signing ph ysician. Lili Lancaster nurse practitioner acting as scribe for signing physician. Objective - Vital Signs Vital signs: Vital Signs Temp 98.6 F 10/17/22 04:00 Pulse 71 10/17/22 04:00 Resp 16 10/17/22 04:00 BP 118/57 10/17/22 04:00 Pulse Ox 98 10/17/22 09:06 FiO2 50 10/14/22 11:00 Intake & Output 10/16/22 10/17/22 10/17/22 18:59 06:59 18:59 Intake Total 341 118 Output Total 2295 275 360 Balance -[id number] -242 Weight 114.9 kg Intake: IV 341 Invasive Line 3 80 Invasive Line 5 10 Oral 118 Output: Urine 2275 275 360 Estimated Blood Loss 20 Other: Voiding Method Indwelling Catheter - Labs CBC & Chem 7: 10/17/22 07:51 10/17/22 07:51 Labs: Abnormal Lab Results - Last 24 Hours (Table) 10/16/22 10/16/22 10/17/22 Range/Units 11:54 19:17 01:59 WBC (3.8-10.6) k/uL RBC (3.80-5.40) m/uL Hgb (11.4-16.0) gm/dL Hct (34.0-46.0) % Chloride (98-107) mmol/L Carbon Dioxide (22-30) mmol/L BUN (7-17) mg/dL Creatinine (0.52-1.04) mg/dL POC Glucose (mg/dL) 151 H 171 H 171 H (70-110) mg/dL 10/17/22 10/17/22 10/17/22 Range/Units 06:15 07:51 07:51 WBC 11.6 H (3.8-10.6) k/uL RBC 3.14 L (3.80-5.40) m/uL Hgb 8.3 L (11.4-16.0) gm/dL Hct 26.4 L (34.0-46.0) % Chloride 96 L (98-107) mmol/L Carbon Dioxide 40 H (22-30) mmol/L BUN 22 H (7-17) mg/dL Creatinine 1.05 H (0.52-1.04) mg/dL POC Glucose (mg/dL) 127 H (70-110) mg/dL Microbiology - Last 24 Hours (Table) 10/11/22 09:46 Blood Culture - Preliminary Blood No Growth after 120 hours 10/11/22 09:46 Blood Culture - Preliminary Blood No Growth after 120 hours
--- NOTE | 2022-10-17 14:20 | P.PN ---
Subjective Progress Note Date: 10/17/22 Principal diagnosis: Pulmonary edema. This is a pleasant 67-year-old female patient with a known history of obesity, diabetes mellitus, hypertension, nonsmoker. She had had a laminectomy done at the [facility] in June 2022 and a follow-up surgery again in 07/31/2022. Since that time she had been having some issues with shortness of breath but more recently they have become increasingly worse and came to the emergency room on 10/11/2022. Chest x-ray showed evidence of cardiomegaly, pulmonary vascular congestion and small bilateral pleural effusions. CT a ngiogram was very limited due to breathing motion and noise from patient's body habitus. Could not exclude segmental branch pulmonary emboli to the basilar right lower lobe. Evidence of CHF with developing interstitial pulmonary edema. Small bilateral pleural effusions. Moderate-sized hiatal hernia. Hepatic steatosis. Echocardiogram revealed preserved left ventricular systolic function with ejection fraction of 50%. Grade 2 diastolic dysfunction. Dopplers of the bilateral lower extremities were negative for DVT. She was found to have elevated troponin peaked at 4.9. White count 9.5. Hemoglobin 8.2. Platelets 260. Sodium 138. Potassium 4.1. BUN 35. Creatinine 0.99. I curb 38. Glucose 1:30. ProBNP 6040. Yesterday 10/13/2022 she had undergone a left heart catheterization a right radial approach with PCI to the proximal LAD at approximately 1200. At approximately 1345 and A team was called due to hypotension and the patient was taken back to the [facility] for concerns r egarding in-stent thrombosis. She was found to have post stenting hypotension which improved by the time she got to the [facility] and a repeat cardiac catheterization and IVUS was performed through the right femoral artery felt likely related to stent thrombosis from distal stent edge stenosis. She was brought into the intensive care unit for closer observation. She is seen today in consultation in the ICU. She is currently awake and alert and on a Ventimask at 50%. She has 0.9 normal saline at 20 mL per hour. 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 She is currently on Brilinta. The patient is seen today 10/15/2022 in follow-up in the intensive care unit. She is currently sitting up in bed. Awake and alert in no acute distress. Feeling better today compared to yesterday. She is maintaining O2 saturations in the 90s on 3 L/m per nasal cannula. Normal saline at 20 per hour. Another ultrasound of the right upper extremity revealed a stable pseudoaneurysm measuring 1.2 x 0.9 x 0.6 arising from the right ulnar artery. Pressure dressing is dry and intact. Blood cultures reveal no growth to date. White count 8.4. Hemoglobin 8.1. Platelets 225. Sodium 137. Potassium 4.3. Bicarb 36. BUN 32. Creatinine 1.08. Glucose 121. Heparin drip is off. She remains on Brilinta. Progress note dated 10/16/2022. The patient is seen today in room 382. Yesterday, she was in the intensive care unit. Currently, the patient's on 3 views of oxygen. She's not receiving any IV fluids. She was in a good mood, and feeling much improved. She denied any shortness of breath or difficulty breathing. She denied any pain. White count 11.7, hemoglobin 8.6, hematocrit 27.9, with a platelet count of 270,000. Sodium 140, potassium 3.6, chlorides 95, CO2 39, BUN 29, creatinine 1.10. Blood cultures are negative. Progress note dated 10/17/2022. Patient is again seen today in room 382. Currently, she is resting comfortably. She's on 2 L of oxygen. She's getting saline at 20 mL an hour. We believe the patient should be treated for pulmonary embolism. Factor X a inhibitor. We'll leave that up to the primary service. Labs today include a white count 11.6, hemoglobin 8.3, hematocrit 26.4, with a normal platelet count. Sodium 140, potassium 3.6, chlorides 96, CO2 40, BUN 22, and creatinine 1.05. Objective - Vital Signs Vital signs: Vital Signs Temp 98.6 F 10/17/22 04:00 Pulse 71 10/17/22 04:00 Resp 16 10/17/22 04:00 BP 118/57 10/17/22 04:00 Pulse Ox 98 10/17/22 09:06 FiO2 50 10/14/22 11:00 Intake & Output 03/10/17/22 10/17/22 18:59 06:59 18:59 Intake Total 341 543 Output Total 2295 275 360 Balance -1954 - 183 Weight 114.9 kg Intake: IV 341 Invasive Line 3 80 Invasive Line 5 10 Oral 543 Output: Urine 2275 275 360 Estimated Blood Loss 20 Other: Voiding Method Indwelling Catheter - Exam No acute distress, oriented 3. Nasal O2 in place at 2 L. No respiratory difficulty. HEENT examination is grossly unremarkable. Neck supple. Full range of motion. No adenopathy thyromegaly or neck vein distention. Cardiovascular examination reveals regular rhythm rate. S1-S2 normal. No S3 or S4. No discernible murmur noted. Heart sounds are distant. Heart rate 71 bpm. Lungs reveal clear breath sounds. Breath sounds are equal bilaterally. No adventitious lung sounds including wheezes rhonchi or crackles. Saturations are 98% on 2 L nasal cannula. Abdomen soft bowel sounds are heard. No masses or tenderness. Extremities are intact. No cyanosis clubbing or edema. Skin is without rash or lesion. Neurologic examination is brief but nonfocal. - Labs CBC & Chem 7: 10/17/22 07:51 10/17/22 07:51 Labs: Abnormal Lab Results - Last 24 Hours (Table) 10/16/22 10/17/22 10/17/22 Range/Units 19:17 01:59 06:15 WBC (3.8-10.6) k/uL RBC (3.80-5.40) m/uL Hgb (11.4-16.0) gm/dL Hct (34.0-46.0) % Chloride (98-107) mmol/L Carbon Dioxide (22-30) mmol/L BUN (7-17) mg/dL Creatinine (0.52-1.04) mg/dL POC Glucose (mg/dL) 171 H 171 H 127 H (70-110) mg/dL 10/17/22 10/17/22 10/17/22 Range/Units 07:51 07:51 11:38 WBC 11.6 H (3.8-10.6) k/uL RBC 3.14 L (3.80-5.40) m/uL Hgb 8.3 L (11.4-16.0) gm/dL Hct 26.4 L (34.0-46.0) % Chloride 96 L (98-107) mmol/L Carbon Dioxide 40 H (22-30) mmol/L BUN 22 H (7-17) mg/dL Creatinine 1.05 H (0.52-1.04) mg/dL POC Glucose (mg/dL) 152 H (70-110) mg/dL Microbiology - Last 24 Hours (Table) 10/11/22 09:46 Blood Culture - Final Blood No Growth after 144 hours 10/11/22 09:46 Blood Culture - Final Blood No Growth after 144 hours Assessment and Plan Assessment: Acute on chronic hypoxemic respiratory failure secondary to acute exacerbation of diastolic congestive heart failure with subsequent finding of a small segmental right lower lobe pulmonary emboli. Non-ST segment elevation myocardial infarction . Coronary artery disease status post stenting to the left anterior descending artery with post stenting hypotension acquiring a return to the [facility] a short time later on 10/13/2022. Right radial hematoma/edema found to have a pseudoaneurysm, a follow-up ultrasound reveals stable findings. Obesity. Hypertension. Hypothyroidism. Hyperlipidemia. Diabetes mellitus. Gastric esophageal reflux disease. Obstructive sleep apnea suspected. Plan: Plan dated 10/16/2022. The patient appears be doing relatively well. She is seen today in room 382. She was transferred out of the intensive care unit. She is on 3 L, with saturations of 98%. The patient is not receiving any IV fluids. She denies any shortness of breath or difficulty breathing. She also denies any chest pain or chest discomfort. We will continue to follow make recommendations along the way. Prognosis is guarded. Plan dated 10/17/2022. We feel the patient should be treated for pulmonary embolism. The patient apparently was started on Eliquis by the hospital service. We agree with that decision. Labs, x-rays, medications are reviewed. Currently, the patient's on 2 L of oxygen. She's getting saline at 20 mL an hour. He is hopeful that she could be discharged in the near future. The patient's overall prognosis is g uarded. We will continue to follow the patient make recommendations where appropriate. Time with Patient: Less than 30
[2022-10-17 16:21] LABS: Glucose,Whole Blood 236 mg/dL (70-110)
[2022-10-17] MEDS: NYSTATIN 100,000 UNIT/GM POWD 15 GM TOPICAL SCH ×2 (18:21→21:12)
[2022-10-17] MEDS: APIXABAN 5 MG TAB PO SCH ×2 (18:22→21:17)
[2022-10-17] MEDS: COLLAGENASE 250 UNIT/GM OINTMENT 30 GM TUBE TOPICAL SCH ×2 (18:23→21:13)
[2022-10-17] MEDS: SODIUM CHLORIDE 0.9% 1,000 ML in EMPTY BAG 1 BAG IV SCH (18:23)
[2022-10-17 20:22] LABS: Glucose,Whole Blood 226 mg/dL (70-110)
[2022-10-17] MEDS ORDERED: APIXABAN 5 MG TAB PO SCH (21:00)
[2022-10-17] MEDS: INSULIN DETEMIR (LEVEMIR) 100 UNIT/ML SYR SQ SCH (21:12)
[2022-10-18] MEDS: ACETAMINOPHEN TAB 325 MG TAB PO PRN ×3 (00:35→20:12)
[2022-10-18 02:41] LABS: Glucose,Whole Blood 115 mg/dL (70-110)
[2022-10-18 06:14] LABS: Glucose,Whole Blood 110 mg/dL (70-110)
[2022-10-18] MEDS: INSULIN ASPART (NovoLOG) 100 UNIT/ML VIAL SQ SCH ×7 (06:20→20:21)
[2022-10-18] MEDS: LEVOTHYROXINE 112 MCG TAB PO SCH (06:22)
[2022-10-18] MEDS: PANTOPRAZOLE 40 MG TABLET PO SCH (06:22)
[2022-10-18] MEDS: FAMOTIDINE 20 MG TAB PO SCH (09:13)
[2022-10-18] MEDS: FUROSEMIDE 40 MG TAB PO SCH (09:13)
[2022-10-18] MEDS: POTASSIUM CITRATE 10 MEQ TABLET.ER PO SCH ×2 (09:13→20:13)
[2022-10-18] MEDS: LOSARTAN 50 MG TAB PO SCH (09:13)
[2022-10-18] MEDS: METOPROLOL TARTRATE 25 MG TAB PO SCH ×2 (09:13→20:13)
[2022-10-18] MEDS: ATORVASTATIN 40 MG TAB PO SCH (09:13)
[2022-10-18] MEDS: TICAGRELOR 90 MG TAB PO SCH ×2 (09:13→20:13)
[2022-10-18] MEDS: COLLAGENASE 250 UNIT/GM OINTMENT 30 GM TUBE TOPICAL SCH ×2 (09:14→11:43)
[2022-10-18] MEDS: NYSTATIN 100,000 UNIT/GM POWD 15 GM TOPICAL SCH ×2 (09:14→20:14)
[2022-10-18] MEDS: APIXABAN 5 MG TAB PO SCH ×2 (09:14→20:13)
[2022-10-18] MEDS ORDERED: CLOPIDOGREL 75 MG TAB PO SCH (09:45)
--- NOTE | 2022-10-18 10:55 | P.PN ---
Subjective Progress Note Date: 10/18/22 HISTORY OF PRESENT ILLNESS: Patient is status post cardiac catheterization on 10/13/2022 revealing 90% proximal LAD, 70% diagonal 1 stenosis, mid LAD 40-50% stenosis, and RCA 30-40% s tenosis. Patient underwent stenting of the proximal LAD. Patient developed right ulnar artery pseudoaneurysm and is scheduled for repair today with vascular surgery. Patient denies chest pain or pressure. Denies SOB. Vital signs are stable. 10/17/2022 Patient examined this morning at the bedside. Patient denies chest pain or pressure. She denies shortness of breath. She is status post repair of right ulnar artery pseudoaneurysm. Vital signs are stable. Hemoglobin remains stable. 10/18/2022 Patient examined this morning at the bedside. Patient denies chest pain or pressure. She denies shortness of breath. Vital signs are stable. She is hoping to be discharged home today. PHYSICAL EXAM: VITAL SIGNS: Reviewed. GENERAL: Well-developed in no acute distress. NECK: Supple. No JVD or thyromegaly LUNGS: Respirations even and unlabored. Lungs essentially clear to auscultation bilaterally. HEART: Regular rate and rhythm. S1 and S2 heard. EXTREMITIES: Normal range of motion. No clubbing or cyanosis. Peripheral pulses intact. No lower extremity edema. ASSESSMENT: NSTEMI, s/p cardiac cath with PCI to proximal LAD Post stenting hypotension, resolved Right ulnar artery pseudoaneurysm, s/p repair Acute on chronic hypoxic respiratory failure Pulmonary edema Pulmonary embolism Hypertension Hyperlipidemia Diabetes Hypothyroidism PLAN: Patient started on Eliquis 10mg per internal medicine for PE. Aspirin was disc ontinued per primary service Continue Brilinta Continue additional cardiac medications Stable for discharge home today from a cardiac standpoint Further recommendations pending patient course Nurse practitioner note has been reviewed by physician. Signing provider agrees with the documented findings, assessment, and plan of care. Objective - Vital Signs Vital signs: Vital Signs Temp 98.2 F 10/18/22 08:00 Pulse 84 10/18/22 08:00 Resp 18 10/18/22 08:00 BP 138/67 10/18/22 08:00 Pulse Ox 97 10/18/22 09:10 FiO2 50 10/14/22 11:00 Intake & Output 10/17/22 10/18/22 10/18/22 18:59 06:59 18:59 Intake Total 543 360 Output Total 1110 Balance -567 360 Intake: Oral 543 360 Output: Urine 1110 Other: # Bowel Movements 1 - Labs CBC & Chem 7: 10/17/22 07:51 10/17/22 07:51 Labs: Abnormal Lab Results - Last 24 Hours (Table) 10/17/22 10/17/22 10/17/22 Range/Units 11:38 16:20 20:20 POC Glucose (mg/dL) 152 H 236 H 226 H (70-110) mg/dL 10/18/22 Range/Units 02:37 POC Glucose (mg/dL) 115 H (70-110) mg/dL Microbiology - Last 24 Hours (Table) 10/11/22 09:46 Blood Culture - Final Blood No Growth after 144 hours 10/11/22 09:46 Blood Culture - Final Blood No Growth after 144 hours
[2022-10-18 12:18] LABS: Glucose,Whole Blood 180 mg/dL (70-110)
--- NOTE | 2022-10-18 13:36 | P.PN ---
Subjective Progress Note Date: 10/18/22 Principal diagnosis: Pulmonary edema. This is a pleasant 67-year-old female patient with a known history of obesity, diabetes mellitus, hypertension, nonsmoker. She had had a laminectomy done at the [facility] in June 2022 and a follow-up surgery again in 07/31/2022. Since that time she had been having some issues with shortness of breath but more recently they have become increasingly worse and came to the emergency room on 10/11/2022. Chest x-ray showed evidence of cardiomegaly, pulmonary vascular congestion and small bilateral pleural effusions. CT a ngiogram was very limited due to breathing motion and noise from patient's body habitus. Could not exclude segmental branch pulmonary emboli to the basilar right lower lobe. Evidence of CHF with developing interstitial pulmonary edema. Small bilateral pleural effusions. Moderate-sized hiatal hernia. Hepatic steatosis. Echocardiogram revealed preserved left ventricular systolic function with ejection fraction of 50%. Grade 2 diastolic dysfunction. Dopplers of the bilateral lower extremities were negative for DVT. She was found to have elevated troponin peaked at 4.9. White count 9.5. Hemoglobin 8.2. Platelets 260. Sodium 138. Potassium 4.1. BUN 35. Creatinine 0.99. I curb 38. Glucose 1:30. ProBNP 6040. Yesterday 10/13/2022 she had undergone a left heart catheterization a right radial approach with PCI to the proximal LAD at approximately 1200. At approximately 1345 and A team was called due to hypotension and the patient was taken back to the [facility] for concerns r egarding in-stent thrombosis. She was found to have post stenting hypotension which improved by the time she got to the [facility] and a repeat cardiac catheterization and IVUS was performed through the right femoral artery felt likely related to stent thrombosis from distal stent edge stenosis. She was brought into the intensive care unit for closer observation. She is seen today in consultation in the ICU. She is currently awake and alert and on a Ventimask at 50%. She has 0.9 normal saline at 20 mL per hour. 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 She is currently on Brilinta. The patient is seen today 10/15/2022 in follow-up in the intensive care unit. She is currently sitting up in bed. Awake and alert in no acute distress. Feeling better today compared to yesterday. She is maintaining O2 saturations in the 90s on 3 L/m per nasal cannula. Normal saline at 20 per hour. Another ultrasound of the right upper extremity revealed a stable pseudoaneurysm measuring 1.2 x 0.9 x 0.6 arising from the right ulnar artery. Pressure dressing is dry and intact. Blood cultures reveal no growth to date. White count 8.4. Hemoglobin 8.1. Platelets 225. Sodium 137. Potassium 4.3. Bicarb 36. BUN 32. Creatinine 1.08. Glucose 121. Heparin drip is off. She remains on Brilinta. Progress note dated 10/16/2022. The patient is seen today in room 382. Yesterday, she was in the intensive care unit. Currently, the patient's on 3 views of oxygen. She's not receiving any IV fluids. She was in a good mood, and feeling much improved. She denied any shortness of breath or difficulty breathing. She denied any pain. White count 11.7, hemoglobin 8.6, hematocrit 27.9, with a platelet count of 270,000. Sodium 140, potassium 3.6, chlorides 95, CO2 39, BUN 29, creatinine 1.10. Blood cultures are negative. Progress note dated 10/17/2022. Patient is again seen today in room 382. Currently, she is resting comfortably. She's on 2 L of oxygen. She's getting saline at 20 mL an hour. We believe the patient should be treated for pulmonary embolism. Factor X a inhibitor. We'll leave that up to the primary service. Labs today include a white count 11.6, hemoglobin 8.3, hematocrit 26.4, with a normal platelet count. Sodium 140, potassium 3.6, chlorides 96, CO2 40, BUN 22, and creatinine 1.05. Progress note dated 10/18/2022. 67-year-old female seen today in room 382. The patient's doing well. She is on 2 L of oxygen. She's not receiving any IV fluids. She has no major complaints today. She denies any chest pain or chest discomfort. She denies any shortness of breath. Her primary service, placed her on a factor X a inhibitor, which we agree with. No new labs today other than a glucose of 180. Objective - Vital Signs Vital signs: Vital Signs Temp 98.2 F 10/18/22 08:00 Pulse 84 10/18/22 08:00 Resp 18 10/18/22 08:00 BP 138/67 10/18/22 08:00 Pulse Ox 97 10/18/22 09:10 FiO2 50 10/14/22 11:00 Intake & Output 10/17/22 10/18/22 10/18/22 18:59 06:59 18:59 Intake Total 543 360 Output Total 1110 Balance -567 360 Weight 114.9 kg Intake: Oral 543 360 Output: Urine 1110 Other: # Bowel Movements 1 - Exam No acute distress, oriented 3. Nasal O2 in place at 2 L. No respiratory difficulty. HEENT examination is grossly unremarkable. Neck supple. Full range of motion. No adenopathy thyromegaly or neck vein distention. Cardiovascular examination reveals regular rhythm rate. S1-S2 normal. No S3 or S4. No discernible murmur noted. Heart sounds are distant. Heart rate 84 bpm. Lungs reveal clear breath sounds. Breath sounds are equal bilaterally. No adventitious lung sounds including wheezes rhonchi or crackles. Saturations are 98% on 2 L nasal cannula. Abdomen soft bowel sounds are heard. No masses or tenderness. Extremities are intact. No cyanosis clubbing or edema. Skin is without rash or lesion. Neurologic examination is brief but nonfocal. - Labs CBC & Chem 7: 10/17/22 07:51 10/17/22 07:51 Labs: Abnormal Lab Results - Last 24 Hours (Table) 10/17/22 10/17/22 10/18/22 Range/Units 16:20 20:20 02:37 POC Glucose (mg/dL) 236 H 226 H 115 H (70-110) mg/dL 10/18/22 Range/Units 12:16 POC Glucose (mg/dL) 180 H (70-110) mg/dL Microbiology - Last 24 Hours (Table) 10/11/22 09:46 Blood Culture - Final Blood No Growth after 144 hours 10/11/22 09:46 Blood Culture - Final Blood No Growth after 144 hours Assessment and Plan Assessment: Acute on chronic hypoxemic respiratory failure secondary to acute exacerbation of diastolic congestive heart failure with subsequent finding of a small segmental right lower lobe pulmonary emboli. Non-ST segment elevation myocardial infarction . Coronary artery disease status post stenting to the left anterior descending artery with post stenting hypotension acquiring a return to the [facility] a short time later on 10/13/2022. Right radial hematoma/edema found to have a pseudoaneurysm, a follow-up ultrasound reveals stable findings. Obesity. Hypertension. Hypothyroidism. Hyperlipidemia. Diabetes mellitus. Gastric esophageal reflux disease. Obstructive sleep apnea suspected. Plan: Plan dated 10/16/2022. The patient appears be doing relatively well. She is seen today in room 382. She was transferred out of the intensive care unit. She is on 3 L, with saturations of 98%. The patient is not receiving any IV fluids. She denies any shortness of breath or difficulty breathing. She also denies any chest pain or chest discomfort. We will continue to follow make recommendations along the way. Prognosis is guarded. Plan dated 10/17/2022. We feel the patient should be treated for pulmonary embolism. The patient apparently was started on Eliquis by the hospital service. We agree with that decision. Labs, x-rays, medications are reviewed. Currently, the patient's on 2 L of oxygen. She's getting saline at 20 mL an hour. He is hopeful that she could be discharged in the near future. The patient's overall prognosis is guarded. We will continue to follow the patient make recommendations where appropriate. Plan dated 10/18/2022. The patient appears be doing relatively well. She remains on 2 L of oxygen. The patient was placed on a factor X a inhibitor by the primary hospitalist service. We agree with that decision. Labs, x-rays, and medications are reviewed. We will continue to follow as needed. No additional recommendations are made. Prognosis is thought to be generally good. Time with Patient: Less than 30
[2022-10-18 15:01] LABS: Appearance,Urine Clear (Clear); Bilirubin,Urine Negative (Negative); Blood,Urine Trace (Negative); Color,Urine Yellow; Glucose,Urine (UA) Trace (Negative); Ketones,Urine Negative (Negative); Leukocyte Esterase,Urine Negative (Negative); Nitrite,Urine Negative (Negative); PH, Urine 7.5 (5.0-8.0); Protein,Urine Negative (Negative); Specific Gravity,Urine 1.015 (1.001-1.035); Urobilinogen,Urine <2.0 mg/dL (<2.0); WBC,Urine <1 /hpf (0-5)
[2022-10-18 17:05] LABS: Glucose,Whole Blood 67 mg/dL (70-110)
[2022-10-18 17:28] LABS: Glucose,Whole Blood 86 mg/dL (70-110)
[2022-10-18] MEDS: SODIUM CHLORIDE 0.9% 1,000 ML in EMPTY BAG 1 BAG IV SCH (18:41)
[2022-10-18 20:12] LABS: Glucose,Whole Blood 315 mg/dL (70-110)
[2022-10-18] MEDS: INSULIN DETEMIR (LEVEMIR) 100 UNIT/ML SYR SQ SCH (20:12)
[2022-10-18] MEDS: ONDANSETRON 4 MG/2 ML VIAL IVP PRN (23:25)
[2022-10-19 02:03] LABS: Glucose,Whole Blood 113 mg/dL (70-110)
[2022-10-19 06:35] LABS: Glucose,Whole Blood 96 mg/dL (70-110)
[2022-10-19] MEDS: INSULIN ASPART (NovoLOG) 100 UNIT/ML VIAL SQ SCH ×7 (06:42→21:46)
[2022-10-19] MEDS: LEVOTHYROXINE 112 MCG TAB PO SCH (06:44)
[2022-10-19] MEDS: PANTOPRAZOLE 40 MG TABLET PO SCH (06:44)
--- NOTE | 2022-10-19 07:36 | P.PN ---
Subjective Progress Note Date: 10/19/22 Principal diagnosis: CAD The patient is a pleasant 67-year-old female patient with coronary artery disease and status post PCI of the LAD as well as hypertension and dyslipidemia and history of pulmonary medicine as well as status post repair of the right ulnar artery for pseudoaneurysm. October 192022 The patient was seen and evaluated this morning. She seems to be stable from a cardiac vascular standpoint overview. She reports no pain in the chest or shortness of breath at this point. She is on anticoagulation and antiplatelet and she is on statin as well. The patient is staying overnight for possible going into rehab facility this coming Friday. On examination she has stable vital signs but she has regular rhythm. She does have diminished breathing sounds bilaterally. No lower extremities edema noted Assessment Coronary artery disease status post PCI of the LAD Status post repair of left ulnar artery for pseudoaneurysm History of pulmonary embolism Multiple comorbid conditions Plan Continue the current medical regimen Follow-up with the patient Objective - Vital Signs Vital signs: Vital Signs Temp 98.1 F 10/19/22 04:00 Pulse 70 10/19/22 04:00 Resp 18 10/19/22 04:00 BP 116/60 10/19/22 04:00 Pulse Ox 97 10/19/22 04:00 FiO2 50 10/14/22 11:00 Intake & Output 10/18/22 10/19/22 10/19/22 18:59 06:59 18:59 Intake Total 840 Balance 840 Weight 114.9 kg Intake: Oral 840 Other: # Voids 1 - Labs CBC & Chem 7: 10/17/22 07:51 10/17/22 07:51 Labs: Abnormal Lab Results - Last 24 Hours (Table) 10/18/22 10/18/22 10/18/22 Range/Units 12:16 13:04 17:03 POC Glucose (mg/dL) 180 H 67 L (70-110) mg/dL Urine Glucose (UA) Trace H (Negative) Urine Blood Trace H (Negative) 10/18/22 10/19/22 Range/Units 20:10 02:02 POC Glucose (mg/dL) 315 H 113 H (70-110) mg/dL Urine Glucose (UA) (Negative) Urine Blood (Negative)
[2022-10-19] MEDS: ACETAMINOPHEN TAB 325 MG TAB PO PRN ×3 (08:43→23:13)
[2022-10-19] MEDS: FAMOTIDINE 20 MG TAB PO SCH (08:43)
[2022-10-19] MEDS: LOSARTAN 50 MG TAB PO SCH (08:43)
[2022-10-19] MEDS: APIXABAN 5 MG TAB PO SCH ×2 (08:44→21:47)
[2022-10-19] MEDS: METOPROLOL TARTRATE 25 MG TAB PO SCH ×2 (08:44→21:47)
[2022-10-19] MEDS: NYSTATIN 100,000 UNIT/GM POWD 15 GM TOPICAL SCH ×2 (08:44→23:13)
[2022-10-19] MEDS: FUROSEMIDE 40 MG TAB PO SCH (08:44)
[2022-10-19] MEDS: COLLAGENASE 250 UNIT/GM OINTMENT 30 GM TUBE TOPICAL SCH ×2 (08:44→08:45)
[2022-10-19] MEDS: TICAGRELOR 90 MG TAB PO SCH ×2 (08:44→21:47)
[2022-10-19] MEDS: ATORVASTATIN 40 MG TAB PO SCH (08:44)
[2022-10-19] MEDS: POTASSIUM CITRATE 10 MEQ TABLET.ER PO SCH ×2 (08:44→21:46)
[2022-10-19 11:51] LABS: Glucose,Whole Blood 258 mg/dL (70-110)
[2022-10-19] MEDS: SODIUM CHLORIDE 0.9% 1,000 ML in EMPTY BAG 1 BAG IV SCH (12:50)
--- NOTE | 2022-10-19 13:10 | P.PN ---
Subjective Progress Note Date: 10/18/22 HISTORY OF PRESENT ILLNESS: This is a 67-year-old female with a previous medical history signif icant for hypertension and hypertensive cardiovascular disease, hyperlipidemia, hypothyroidism, chronic gastroesophageal reflux disease with esophagitis, type 1 diabetes mellitus currently on insulin pump, vitamin D deficiency, diabetic neuropathy, patient also had history of spondylosis of the lumbar spine status post lumbar laminectomy back in 07/01/2022 followed by a wound dehiscence at the [facility] of the lumbar area and she ended up going back for another surgical intervention and generally fourth 2022 after that she was sent to [facility] on the [place] for physical therapy rehabilitation, she had a wound that has been treated through the wound care center for the [facility] and currently has been getting Santyl and the area has almost closed up, patient has been following with Dr. Trujillo as an outpatient for her insulin pump, and she stated that her sugar has been getting high recently she presented to the office on 10/08/2021 with increased shortness of breath has been on oxygen 3 L nasal cannula that she has been increased to 5-60 minute visit cannula, she has been complaining of increased swelling in both lower extremity is, she has been complaining of significant dyspnea on exertion, patient weight has been done up to 260, patient scheduled to go to see pulmonary to rule out obesity hypoventilation syndrome as well as obstructive sleep apnea and she was supposed to go see Dr. Foreman the office however she woke up in the morning and she was complaining of significant shortness breath, when her came to check on her she looked castro and she asked him to call 911, patient presented to the emergency department at [facility] she was found to have a significant pulmonary edema on a chest x-ray with bilateral pleural effusion, but because be elevated d-dimer, she underwent CTA of the chest that documented the pulmonary edema and possible pulmonary emboli in the right subsegmental lower lobes, and she was started on heparin drip as well as Lasix 40 mg IV push every 8 hours she was admitted to the hospital echogram was obtained, with cardiology consultation as well as pulmonary consultation 10/12: Patient is sitting up at the edge of the bed she is doing better today, she is up on oxygen to 6 L nasal cannula, she continues to diurese very well, mildly elevated potassium at 5.2, we'll decrease her potassium citrate to twice a day, continue heparin drip, continue metoprolol, continue losartan, continue to monitor the patient very closely, echocardiogram was done, venous Doppler of both lower extremity would be done to rule out any DVT, please keep the patient on heparin drip for now. 10/13: Patient is sitting up in bed and feeling better today, her troponin went up to 4.9, she was rolled into non-ST elevation CO, patient did have echocardiogram did show evidence of mild global hypokinesia with ejection fraction 50% mild mitral regurgitation and tricuspid regurgitation no pulmonary hypertension, continue patient on heparin drip, continue patient on metoprolol 25 mg orally twice every day, pulmonary consultation for evaluation of possible pulmonary emboli at the lower lobe segmental branches, patient will need to go for a heart catheter physician for evaluation of the coronary anatomy at this time, I would decrease her Lasix to 40 mg po daily 10/14: Yesterday, patient underwent left heart catheterization, PCI in the proximal LAD with stent post dilated proximal LAD with balloon. Subsequently patient developed hypotension with blood pressures in the 60s over 40s and returned to her room. To be pallid L. EKG showed significant ST elevations and some ST depressions therefore STEMI alert was activated and patient was returned to the [facility]. Post stenting hypotension was improved by the time she reached the [facility] felt likely related to stent thrombosis from distal stent edge stenosis. Cardiology has recommended dual antiplatelets with aspirin and Brilinta for 12 months. Patient is seen today in the intensive care unit. Chest x-ray this morning reveals mild cardiomegaly with improving pulmonary vascular congestion. Interval improvement in previous small pleural effusions as well. 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 Clinically a consult was placed with vascular surgery and they have evaluated the patient and there is no plan for surgical intervention at this time. Plan to repeat ultrasound of the right upper extremity tomorrow. Repeat blood work reveals hemoglobin of 8.2, WBC 9.5, platelet count 260. Sodium 138, potassium 4.1, BUN 35 and creatinine 0.99. ProBNP 6040. Magnesium 1.7. TSH 2.89 and free T4 1 0.83. Repeat echocardiogram reveals Re: Possible pulmonary embolism, ultrasound of bilateral lower extremities negative for DVT. Patient will be started on oral anticoagulation once cleared by consultants. 3/21: Patient remains in the ICU but has been down graded to 3S. marek is on hold for possible surgical intervention by vascular surgery. Repeat ultrasound of the right upper extremity revealed stable pseudoaneurysm measuring 1.2 x 0.9 x 0.6 cm arising from the right ulnar artery. Neck is similar in size. Patient has had good urine output and Parker can be removed following surgery. Patient general states she is feeling much better, no shortness of breath and no chest pain. Patient's is at bedside. Repeat blood work reveals hemoglobin of 8.1, BUN 32 creatinine 1.08. Potassium 4.3. Blood sugars are running between 124-147. 10/16: Patient is seen today on the cardiac stepdown unit. Patient remains afebrile, heart rate in the 70s and 80s, blood pressure 144/70, pulse ox 97% on 3 L nasal cannula. Repeat blood work reveals WBC 11.7, hemoglobin 8.6, platelet count 270. Sodium 140, potassium 3.6, chloride 95, CO2 39, BUN 29 creatinine 1 .1. Blood sugar 148. White blood glucose running between 179 and 266. Patient is scheduled for right ulnar artery repair with Dr. Ayala today. 10/17: Last evening, patient underwent right wrist exploration with control of hemorrhage and right ulnar artery pseudoaneurysm repair with Dr. Ayala. This morning, pain is improved to the right wrist. She has good range of motion. Vascular surgery has cleared the patient to start anticoagulation and plan follow-up in one to 2 weeks in the office. Patient remains afebrile, heart rate in the 70s, blood pressure 118/57 and pulse ox 98% on 2 L nasal cannula. WBC 11.6, hemoglobin 8.3 which is down from 8.6 yesterday. Platelet count 264. BUN 22 and creatinine 1.05. Capillary blood glucose running between 127-171. Discussed with Dr. Kong and in agreement to start patient on anticoagulation. BM yesterday was normal. 10/18: Patient appears to be quite emotional today, she decided not to go home because it was too much work for her , psychotherapist social worker is working on getting the patient into [facility] on the [place] and best can take few days before she can get there, meanwhile will continue with the present treatment plan, continue physical therapy, continue to monitor the patient very closely, patient appears to be doing okay. 10/19: Patient is sitting up in bed in no apparent distress, she is eating her lunch, her was at bedside, she denies any chest pain, she is less short of breath, she is a bit any better, she is scheduled to be discharged to [facility] on the [place] a Friday morning, there is no new changes for today. REVIEW OF SYSTEMS: Constitutional: No documented fever, no chills, no night sweats. positive for significant weight gain No weakness, fatigue or lethargy. No daytime sleepiness. HEENT: No headache. No blurred vision or double vision, no loss of vision. No loss of Hearing, no ringing in the ears, no dizziness. No nasal drainage or congestion. No epistaxis. No sore throat. Lungs: positive for shortness of breath, occasional cough, no sputum production. No wheezing. Reports dyspnea with activity, positive for orthopneam and PND Cardiovascular: No chest pain, positive for lower extremity edema. positive for palpitations. positive for paroxysmal nocturnal dyspnea. positive for orthopnea. No lightheadedness or dizziness. No syncopal episodes. Abdominal: Reports no abdominal pain. positive for nausea, vomiting. No diarrhea. No constipation. No bloody or tarry stools reports loss of appetite. Genitourinary: No dysuria, increased frequency, urgency. No urinary retention. Musculoskeletal: No myalgias. positive for muscle weakness, positive for gait dysfunction, no frequent falls. positive for back pain. No neck pain. Mild discomfort right wrist with bruising-improved. Integumentary: positive for lumbar wound that is covered with santyl , no lesions. No rash or pruritus. No unusual bruising. No change in hair or nails. Neurologic: No aphasia. No facial droop. No change in mentation. No head injury. No headache. No paralysis. No paresthesia. Psychiatric: No depression. No anxiety. No mood swings. Endocrine: positive for mildly abnormal blood sugars. positive for weight change. PHYSICAL EXAMINATION: General: 67-year-old female laying down in bed in moderate respiratory distress HEENT: Head is atraumatic, normocephalic, pupils were equal round reactive to light and recommendation, extraocular muscle movement were intact, sclera nonicteric, conjunctivae were pale, mucous membranes of the mouth are somewhat dry. Neck: Supple, no JVP, normal carotid upstroke bilaterally, no lymphadenopathy. Chest: Decreased breath sounds at the bases, few rhonchi, positive for expiratory wheezes, no chest wall tenderness, minimal intercostal retractions. Heart: First heart sound is normal, second heart sound is normal tachycardic there is systolic ejection murmur 2/6 located in the left sternal border. Abdomen: Soft, nontender, nondistended, positive bowel sounds. 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 ASSESSMENT AND PLAN: 1. Acute on chronic hypoxemic respiratory failure due to pulmonary edema due to acute systolic heart failure as well as right lower lobes pulmonary emboli. Continue furosemide 40 mg po daily, continue metoprolol 25 mg orally twice every day, continue losartan 100 mg orally once every day. Consult with cardiology and pulmonary medicine appreciated. 2. Pulmonary edema with acute diastolic heart failure Continue furosemide 40 mg po daily continue metoprolol 25 mg orally twice every day, continue losartan 100 mg orally once every day, reviewed echocardiogram. 3. Right subsegmental branches of the lower lobes pulmonary emboli. Continu with Eliquis 10 mg orally twice every day for 7 days then 5 mg orally twice every day and is healthy. 4. One episode of atrial flutter with RVR. Please refer to the 12-lead EKG in the chart. Continue metoprolol 25 mg orally twice every day. continue patient on Eliquis 5. Non-ST elevated myocardial infarction status post cardiac catheterization and PCI of the LAD and balloon to the proximal LAD. Continue patient on Brili nta 90 mg twice daily, aspirin 81 mg daily, atorvastatin 20 mg daily, metoprolol 25 mg twice daily. 6. Hypotension following PCI thought to be related to stent thrombosis from the distal stent edge.resolved 7. Right upper extremity hematoma status post ulnar artery access for cardiac catheterization. S/p right ulnar artery pseudoaneurysm repair by Dr. Ayala 10/16. 8. Hypertension and hypertensive cardiovascular disease. Continue patient on metoprolol 25 mg orally twice every day, losartan 100 mg orally once every day, monitor the patient very closely. 9. Hyperlipidemia. continue atorvastatin 20 mg orally once every day, monitor the patient the benefit, keep LDL 55-70. 10. Hypothyroidism. Continue patient on Synthroid 112 g orally once every day. 11. Diabetes mellitus type 1. on Levemir 50 units at bedtime along with NovoLog 12 units plus the sliding scale insulin. 12. GERD with esophagitis and hiatal hernia. Continue patient on Protonix 40 mg once every day. 13. Obesity with obstructive sleep apnea and possible obesity hypoventilation syndrome patient will need to have a sleep study as an outpatient. 14. Vitamin D deficiency. Continue vitamin D3 2000 units once every day. 15. History of kidney stones. 16. DVT prophylaxis. Continue patient on eliquis 14. GI prophylaxis. Continue PPI. 15. Lumbar dehiscence after surgery at [facility] postlaminectomy continue with local wound care with Santyl every day. 16. Chronic hypoxic respiratory failure with home O2 at 3 L nasal cannula. 17. Continue PT and OT 18. [facility] on Friday. Objective - Vital Signs Vital signs: Vital Signs Temp 98.4 F 10/19/22 08:00 Pulse 81 10/19/22 08:00 Resp 18 10/19/22 04:00 BP 112/63 10/19/22 08:00 Pulse Ox 98 10/19/22 08:00 FiO2 50 10/14/22 11:00 Intake & Output 10/18/22 10/19/22 10/19/22 18:59 06:59 18:59 Intake Total 840 240 Output Total 600 Balance 840 -360 Weight 114.9 kg Intake: Oral 840 240 Output: Urine 600 Other: # Voids 1 - Labs CBC & Chem 7: 10/17/22 07:51 10/17/22 07:51 Labs: Abnormal Lab Results - Last 24 Hours (Table) 10/18/22 10/18/22 10/18/22 Range/Units 13:04 17:03 20:10 POC Glucose (mg/dL) 67 L 315 H (70-110) mg/dL Urine Glucose (UA) Trace H (Negative) Urine Blood Trace H (Negative) 10/19/22 10/19/22 Range/Units 02:02 11:49 POC Glucose (mg/dL) 113 H 258 H (70-110) mg/dL Urine Glucose (UA) (Negative) Urine Blood (Negative)
--- NOTE | 2022-10-19 15:22 | P.PN ---
Subjective Progress Note Date: 10/19/22 Patient seen and examined. No complaints or concerns. Pain and right upper extremity is significantly improved from preoperatively. 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 Ecchymosis throughout the upper extremity, no hematoma. Motor sensory intact. At this point we will sign off, follow-up in 10-[address] rivas in the office. Objective - Vital Signs Vital signs: Vital Signs Temp 98.4 F 10/19/22 08:00 Pulse 81 10/19/22 08:00 Resp 18 10/19/22 04:00 BP 112/63 10/19/22 08:00 Pulse Ox 98 10/19/22 08:00 FiO2 50 10/14/22 11:00 Intake & Output 10/18/22 10/19/22 10/19/22 18:59 06:59 18:59 Intake Total 840 240 Output Total 600 Balance 840 -360 Weight 114.9 kg Intake: Oral 840 240 Output: Urine 600 Other: # Voids 1 - Labs CBC & Chem 7: 10/17/22 07:51 10/17/22 07:51 Labs: Abnormal Lab Results - Last 24 Hours (Table) 10/18/22 10/18/22 10/19/22 Range/Units 17:03 20:10 02:02 POC Glucose (mg/dL) 67 L 315 H 113 H (70-110) mg/dL 10/19/22 Range/Units 11:49 POC Glucose (mg/dL) 258 H (70-110) mg/dL
[2022-10-19 16:33] LABS: Glucose,Whole Blood 269 mg/dL (70-110)
[2022-10-19 20:32] LABS: Glucose,Whole Blood 170 mg/dL (70-110)
[2022-10-19] MEDS: INSULIN DETEMIR (LEVEMIR) 100 UNIT/ML SYR SQ SCH (21:46)
[2022-10-20 02:05] LABS: Glucose,Whole Blood 214 mg/dL (70-110)
[2022-10-20 06:22] LABS: Glucose,Whole Blood 191 mg/dL (70-110)
[2022-10-20] MEDS: ACETAMINOPHEN TAB 325 MG TAB PO PRN ×3 (07:05→22:31)
[2022-10-20] MEDS: INSULIN ASPART (NovoLOG) 100 UNIT/ML VIAL SQ SCH ×7 (07:07→22:43)
[2022-10-20] MEDS: PANTOPRAZOLE 40 MG TABLET PO SCH (07:07)
[2022-10-20] MEDS: LEVOTHYROXINE 112 MCG TAB PO SCH (07:07)
[2022-10-20] MEDS: ATORVASTATIN 40 MG TAB PO SCH (09:02)
[2022-10-20] MEDS: FUROSEMIDE 40 MG TAB PO SCH (09:02)
[2022-10-20] MEDS: METOPROLOL TARTRATE 25 MG TAB PO SCH ×2 (09:02→22:31)
[2022-10-20] MEDS: APIXABAN 5 MG TAB PO SCH ×2 (09:02→22:31)
[2022-10-20] MEDS: TICAGRELOR 90 MG TAB PO SCH ×2 (09:02→22:31)
[2022-10-20] MEDS: FAMOTIDINE 20 MG TAB PO SCH (09:02)
[2022-10-20] MEDS: POTASSIUM CITRATE 10 MEQ TABLET.ER PO SCH ×2 (09:03→22:30)
[2022-10-20] MEDS: NYSTATIN 100,000 UNIT/GM POWD 15 GM TOPICAL SCH ×2 (09:03→22:32)
[2022-10-20] MEDS: COLLAGENASE 250 UNIT/GM OINTMENT 30 GM TUBE TOPICAL SCH ×3 (09:03→23:45)
[2022-10-20] MEDS: LOSARTAN 50 MG TAB PO SCH (09:04)
--- NOTE | 2022-10-20 09:08 | P.PN ---
Subjective Progress Note Date: 10/20/22 Principal diagnosis: CAD The patient is a pleasant 67-year-old female patient with coronary artery disease and status post PCI of the LAD as well as hypertension and dyslipidemia and history of pulmonary medicine as well as status post repair of the right ulnar artery for pseudoaneurysm. October 192022 The patient was seen and evaluated this morning. She seems to be stable from a cardiac vascular standpoint overview. She reports no pain in the chest or shortness of breath at this point. She is on anticoagulation and antiplatelet and she is on statin as well. The patient is staying overnight for possible going into rehab facility this coming Friday. On examination she has stable vital signs but she has regular rhythm. She does have diminished breathing sounds bilaterally. No lower extremities edema noted October 202022 The patient was seen and evaluated this morning. She remains asymptomatic. She remains hemodynamically stable. She is on maximize medical treatment including anticoagulation and antiplatelet and she is in process of being transferred to extended care facility in the next 24 hours. On examination she has stable vital signs with a regular rhythm and diminished breathing sounds bilaterally and mild bilateral lower extended his edema Assessment Coronary artery disease status post PCI of the LAD Status post repair of left ulnar artery for pseudoaneurysm History of pulmonary embolism Multiple comorbid conditions Plan Continue the current medical regimen The patient to be transferred to extended care facility in the next 24 hours Follow-up with the patient Objective - Vital Signs Vital signs: Vital Signs Temp 96.0 F L 10/20/22 04:00 Pulse 78 10/20/22 04:00 Resp 18 10/20/22 04:00 BP 106/43 10/20/22 04:00 Pulse Ox 95 10/20/22 04:00 FiO2 50 10/14/22 11:00 Intake & Output 10/19/22 10/20/22 10/20/22 18:59 06:59 18:59 Intake Total 420 118 Output Total 800 500 Balance -380 -500 118 Intake: Oral 420 118 Output: Urine 800 500 - Labs CBC & Chem 7: 10/17/22 07:51 10/17/22 07:51 Labs: Abnormal Lab Results - Last 24 Hours (Table) 10/19/22 10/19/22 10/19/22 Range/Units 11:49 16:28 20:32 POC Glucose (mg/dL) 258 H 269 H 170 H (70-110) mg/dL 10/20/22 10/20/22 Range/Units 02:04 06:20 POC Glucose (mg/dL) 214 H 191 H (70-110) mg/dL
[2022-10-20 11:51] LABS: Glucose,Whole Blood 148 mg/dL (70-110)
--- NOTE | 2022-10-20 13:06 | P.PN ---
Subjective Progress Note Date: 10/20/22 This is a 67 year old female monitored on stepdown unit. Post cardiac stent x 2 to the LAD and continues on antiplatelet therapy. Patient also underwent repair of right wrist pseudoaneurysm. There is bruising to the right arm. Stable. Patient has no acute complaints overnight. Continues on nasal cannula at 2-3L. Continues with local wound care with santyl to lumbar wound dihescence. Has telehealth visit this week with her [facility] CUTTER from [facility] wound care. Patient would like to follow up the [facility] center on discharge. Blood glucose down to 140. Afebrile. Review of Systems Constitutional: Denied any fatigue denied any fever. Cardio vascular: denied any chest pain, palpitations Gastrointestinal: denied any nausea, vomiting, diarrhea Pulmonary: Denied any shortness of breath cough Neurologic denied any new focal deficits All inpatient medications were reviewed and appropriate changes in these m edications as dictated in the interval history and assessment and plan. PHYSICAL EXAMINATION: GENERAL: The patient is alert and oriented x3, not in any acute distress. Well developed, well nourished. Obese. On nasal cannula HEENT: Pupils are round and equally reacting to light. EOMI. No scleral icterus. No conjunctival pallor. Normocephalic, atraumatic. No pharyngeal erythema. No thyromegaly. CARDIOVASCULAR: S1 and S2 present. No murmurs, rubs, or gallops. PULMONARY: Chest is clear to auscultation, no wheezing or crackles. ABDOMEN: Soft, nontender, nondistended, normoactive bowel sounds. No palpable organomegaly. MUSCULOSKELETAL: No joint swelling or deformity. EXTREMITIES: No cyanosis, clubbing, or pedal edema. NEUROLOGICAL: Gross neurological examination did not reveal any focal deficits. SKIN: No rashes. Significant ecchymosis to the right forearm and wrist. Incision clean dry intact. ASSESSMENT AND PLAN: 1. Acute on chronic hypoxemic respiratory failure due to pulmonary edema due to acute systolic heart failure as well as right lower lobes pulmonary emboli. Continue furosemide 40 mg po daily, continue metoprolol 25 mg orally twice every day, continue losartan 100 mg orally once every day. Consult with cardiology and pulmonary medicine appreciated. 2. Pulmonary edema with acute diastolic heart failure Continue furosemide 40 mg po daily continue metoprolol 25 mg orally twice every day, continue losartan 100 mg orally once every day, reviewed echocardiogram. 3. Right subsegmental branches of the lower lobes pulmonary emboli. Continue with Eliquis 10 mg orally twice every day for 7 days then 5 mg orally twice every day. 4. One episode of atrial flutter with RVR. Please refer to the 12-lead EKG in the chart. Continue metoprolol 25 mg orally twice every day. continue patient on Eliquis 5. Non-ST elevated myocardial infarction status post cardiac catheterization and PCI of the LAD and balloon to the proximal LAD. Continue patient on Brilin ta 90 mg twice daily, aspirin 81 mg daily, atorvastatin 20 mg daily, metoprolol 25 mg twice daily. 6. Hypotension following PCI thought to be related to stent thrombosis from the distal stent edge.resolved 7. Right upper extremity hematoma status post ulnar artery access for cardiac catheterization. S/p right ulnar artery pseudoaneurysm repair by Dr. Ayala 10/16. 8. Hypertension and hypertensive cardiovascular disease. Continue patient on metoprolol 25 mg orally twice every day, losartan 100 mg orally once every day, monitor the patient very closely. 9. Hyperlipidemia. continue atorvastatin 20 mg orally once every day, monitor the patient the benefit, keep LDL 55-70. 10. Hypothyroidism. Continue patient on Synthroid 112 g orally once every day. 11. Diabetes mellitus type 1. on Levemir 50 units at bedtime along with NovoLog 12 units plus the sliding scale insulin. 12. GERD with esophagitis and hiatal hernia. Continue patient on Protonix 40 mg once every day. 13. Obesity with obstructive sleep apnea and possible obesity hypoventilation syndrome patient will need to have a sleep study as an outpatient. 14. Vitamin D deficiency. Continue vitamin D3 2000 units once every day. 15. History of kidney stones. 16. DVT prophylaxis. Continue patient on eliquis 14. GI prophylaxis. Continue PPI. 15. Lumbar dehiscence after surgery at [facility] post laminectomy continue with local wound care with Santyl every day. 16. Chronic hypoxic respiratory failure with home O2 at 3 L nasal cannula. 17. Continue PT and OT 18. [facility] on Friday. The impression and plan of care has been dictated by Olga Duggan, Nurse Practitioner as directed. Dr. Alejandro MD I have performed a history and physical examination and medical decision making of this patient, discussed the same with the dictator, and agree with the dictators assessment and plan as written, documented as a scribe. Based on total visit time, I have performed more than 50% of this visit. Objective - Vital Signs Vital signs: Vital Signs Temp 96.0 F L 10/20/22 04:00 Pulse 78 10/20/22 04:00 Resp 18 10/20/22 04:00 BP 106/43 10/20/22 04:00 Pulse Ox 95 10/20/22 04:00 FiO2 50 10/14/22 11:00 Intake & Output 10/19/22 10/20/22 10/20/22 18:59 06:59 18:59 Intake Total 420 118 Output Total 800 500 Balance -380 -500 118 Intake: Oral 420 118 Output: Urine 800 500 - Labs CBC & Chem 7: 10/17/22 07:51 10/17/22 07:51 Labs: Abnormal Lab Results - Last 24 Hours (Table) 10/19/22 10/19/22 10/19/22 Range/Units 11:49 16:28 20:32 POC Glucose (mg/dL) 258 H 269 H 170 H (70-110) mg/dL 10/20/22 10/20/22 Range/Units 02:04 06:20 POC Glucose (mg/dL) 214 H 191 H (70-110) mg/dL Assessment and Plan Time with Patient: Less than 30
[2022-10-20 13:32] LABS: Glucose,Whole Blood 214 mg/dL (70-110)
[2022-10-20] MEDS: SODIUM CHLORIDE 0.9% 1,000 ML in EMPTY BAG 1 BAG IV SCH (13:57)
[2022-10-20 16:34] LABS: Glucose,Whole Blood 371 mg/dL (70-110)
[2022-10-20 20:41] LABS: Glucose,Whole Blood 215 mg/dL (70-110)
[2022-10-20 22:37] VITALS: RESP 16
[2022-10-20 22:42] LABS: Glucose,Whole Blood 209 mg/dL (70-110)
[2022-10-20] MEDS: INSULIN DETEMIR (LEVEMIR) 100 UNIT/ML SYR SQ SCH (22:43)
[2022-10-21 06:02] LABS: Glucose,Whole Blood 156 mg/dL (70-110)
[2022-10-21] MEDS: INSULIN ASPART (NovoLOG) 100 UNIT/ML VIAL SQ SCH ×4 (06:03→12:13)
[2022-10-21] MEDS: ACETAMINOPHEN TAB 325 MG TAB PO PRN ×2 (06:04→14:19)
[2022-10-21] MEDS: PANTOPRAZOLE 40 MG TABLET PO SCH (06:04)
[2022-10-21] MEDS: LEVOTHYROXINE 112 MCG TAB PO SCH (06:04)
[2022-10-21] MEDS: NYSTATIN 100,000 UNIT/GM POWD 15 GM TOPICAL SCH ×2 (06:08→09:21)
[2022-10-21] MEDS: METOPROLOL TARTRATE 25 MG TAB PO SCH (09:20)
[2022-10-21] MEDS: TICAGRELOR 90 MG TAB PO SCH (09:20)
[2022-10-21] MEDS: POTASSIUM CITRATE 10 MEQ TABLET.ER PO SCH (09:20)
[2022-10-21] MEDS: FAMOTIDINE 20 MG TAB PO SCH (09:20)
[2022-10-21] MEDS: ATORVASTATIN 40 MG TAB PO SCH (09:20)
[2022-10-21] MEDS: LOSARTAN 50 MG TAB PO SCH (09:20)
[2022-10-21] MEDS: FUROSEMIDE 40 MG TAB PO SCH (09:21)
[2022-10-21] MEDS: APIXABAN 5 MG TAB PO SCH (09:21)
[2022-10-21 10:05] VITALS: TEMP 97.5
--- NOTE | 2022-10-21 10:17 | CDI ---
Documentation Clarification Form Date: 10/21/2022 9:18:14 AM From: Shannan Navarro RN CCDS Phone: [phone] Admit Date: 10/11/2022 12:29:00 PM Patient Name: Cara Martinez Visit Number: [id number] Discharge Date: ATTENTION: The Clinical Documentation Specialists (CDI) and [facility] Coding Staff appreciate your assistance in clarifying documentation. Please respond to the clarification below the line at the bottom and electronically sign. The CDI & [facility] Coding staff will review the response and follow-up if needed. Please note: Queries are made part of the Legal Health Record. If you have any questions, please contact the author of this message via ITS. Dr. Juan Pablo Elkins Right upper extremity hematoma status post ulnar artery access for cardiac catheterization 10/20, Medicine note and patient had a Heart catheterization and stenting, 10/13. Additional clarification is requested regarding the relationship, if any, that exists between the diagnosis and the procedure. Patients Admitting Diagnosis: Pulmonary Emboli, Acute on chronic Failure, Respiratory Failure Post-Operative Diagnosis: Coronary artery disease 90% proximal LAD stenosis, 70% diagonal stenosis, mid LAD 40-50% stenosis, RCA 30-40% stenosis. Procedure performed: Percutaneous Coronary Intervention, Left heart catheterization, bilateral coronary angiography and PCI Proximal LAD with 3.0 x 15mm Xience GONZÁLEZ, post dilated proximally with a 3.25mm NC balloon proximally. History/Risk Factors: 67 year old female presents to ED with increased shortness of breath, exertional dyspnea, weight gain with lower extremity swelling. Clinical Indicators: 10/13 VSS: B/P 118/74, HR 80, Temp 98; RR 18, SpO2 97% room air 10/12 Labs: Troponin 4.980; 4.140; PTT 101.0; PTT 47.6 10/13 Lab: PTT 53.0 10/12, Cardiology consult: Shortness of breath, questionable pulmonary embolism on CTA, currently being treated as PE with anticoagulation. Treatment: 10/16 right wrist exploration with control of hemorrhage. Right ulnar artery pseudo aneurysm repair. 10/11 Heparin 4,000 units IV x 2; 10/11 10/13 Heparin IV titrate; 10/13 Heparin IV 5, 000 Units x 1; 10/13 2,500 Units x1, 10/13 2,000 Units iv x 1; 10/13 1,000 IV Units x 1 Consults: Cardio Vascular: Right upper extremity hematoma status post ulnar artery access for cardiac catheterization. What relationship, if any, exists between the diagnosis of pseudo aneurysm of the right ulna and the procedure: [ x ] Pseudo Aneurysm is a complication of surgical procedure [ ] Pseudo Aneurysm is a result of coagulopathy from anticoagulants [ ] Other please specify ____ [ ] Unable to determine (Template Last Revised: September 2020) MTDD
[2022-10-21 11:55] LABS: Calcium 8.4 mg/dL (8.4-10.2); Potassium 4.6 mmol/L (3.5-5.1)
[2022-10-21 12:02] LABS: Glucose,Whole Blood 313 mg/dL (70-110)
[2022-10-21 12:32] VITALS: BP 132/72; PULSE 74
--- NOTE | 2022-10-21 13:41 | P.PN ---
Subjective Progress Note Date: 10/21/22 This is a pleasant 67-year-old female patient with a known history of obesity, diabetes mellitus, hypertension, nonsmoker. She had had a laminectomy done at the [facility] in June 2022 and a follow-up surgery again in 07/31/2022. Since that time she had been having some issues with shortness of breath but more recently they have become increasingly worse and came to the emergency room on 10/11/2022. Chest x-ray showed evidence of cardiomegaly, pulmonary vascular congestion and small bilateral pleural effusions. CT angiogram was very limited due to breathing motion and noise from patient's body habitus. Could not exclude segmental branch pulmonary emboli to the basilar right lower lobe. Evidence of CHF with developing interstitial pulmonary edema. Small bilateral pleural effusions. Moderate-sized hiatal hernia. Hepatic steatosis. Echocardiogram revealed preserved left ventricular systolic function with ejection fraction of 50%. Grade 2 diastolic dysfunction. Dopplers of the bilateral lower extremities were negative for DVT. She was found to have elevated troponin peaked at 4.9. White count 9.5. Hemoglobin 8.2. Platelets 260. Sodium 138. Potassium 4.1. BUN 35. Creatinine 0.99. I curb 38. Glucose 1:30. ProBNP 6040. Yesterday 10/13/2022 she had undergone a left heart catheterization a right radial approach with PCI to the proximal LAD at approxi mately 1200. At approximately 1345 and A team was called due to hypotension and the patient was taken back to the Rehabilitation Counsellor for concerns regarding in-stent thrombosis. She was found to have post stenting hypotension which improved by the time she got to the Rehabilitation Counsellor and a repeat cardiac catheterization and IVUS was performed through the right femoral artery felt likely related to stent thrombosis from distal stent edge stenosis. She was brought into the intensive care unit for closer observation. She is seen today in consultation in the ICU. She is currently awake and alert and on a Ventimask at 50%. She has 0.9 normal saline at 20 mL per hour. 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 She is currently on Brilinta. The patient is seen today 10/15/2022 in follow-up in the intensive care unit. She is currently sitting up in bed. Awake and alert in no acute distress. Feeling better today compared to yesterday. She is maintaining O2 saturations in the 90s on 3 L/m per nasal cannula. Normal saline at 20 per hour. Another ultrasound of the right upper extremity revealed a stable pseudoaneurysm measuring 1.2 x 0.9 x 0.6 arising from the right ulnar artery. Pressure dressing is dry and intact. Blood cultures reveal no growth to date. White count 8.4. Hemoglobin 8.1. Platelets 225. Sodium 137. Potassium 4.3. Bicarb 36. BUN 32. Creatinine 1.08. Glucose 121. Heparin drip is off. She remains on Brilinta. Progress note dated 10/16/2022. The patient is seen today in room 382. Yesterday, she was in the intensive care unit. Currently, the patient's on 3 views of oxygen. She's not receiving any IV fluids. She was in a good mood, and feeling much improved. She denied any shortness of breath or difficulty breathing. She denied any pain. White count 11.7, hemoglobin 8.6, hematocrit 27.9, with a platelet count of 270,000. Sodium 140, potassium 3.6, chlorides 95, CO2 39, BUN 29, creatinine 1.10. Blood cultures are negative. Progress note dated 10/17/2022. Patient is again seen today in room 382. Currently, she is resting comfortably. She's on 2 L of oxygen. She's getting saline at 20 mL an hour. We believe the patient should be treated for pulmonary embolism. Factor X a inhibitor. We'll leave that up to the primary service. Labs today include a white count 11.6, hemoglobin 8.3, hematocrit 26.4, with a normal platelet count. Sodium 140, potassium 3.6, chlorides 96, CO2 40, BUN 22, and creatinine 1.05. Progress note dated 10/18/2022. 67-year-old female seen today in room 382. The patient's doing well. She is on 2 L of oxygen. She's not receiving any IV fluids. She has no major complaints today. She denies any chest pain or chest discomfort. She denies any shortness of breath. Her primary service, placed her on a factor X a inhibitor, which we agree with. No new labs today other than a glucose of 180. On today's evaluation of the 2022, the patient is being seen for a follow- up. The patient is doing well. The patient has developed a catheterization of the right radial artery access for cardiac catheterization stenting. The patient developed a pseudoaneurysm and currently she is not having any active bleeding. She is on a combination of Brilinta, and Eliquis.. Meanwhile, the patient is free of any chest pain. The patient remains essentially asymptomatic and hemodynamically stable. She is on 2 L of oxygen by nasal cannula. Her initial CAT scan of the chest showed a component of CHF and small bilateral pleural effusion and I'm hoping that the patient's x-ray showed ultimately improved with optimization of her cardiac condition. Note that the patient underwent repair of a right ulnar artery pseudoaneurysm. She is currently on a combination of Brilinta and Eliquis. Hemoglobin is stable for now. She still has some areas of ecchymosis in her right upper extremity. No hematoma. Motor function and sensory function are essentially intact. The patient had a right ulnar artery pseudoaneurysm repair. Objective - Vital Signs Vital signs: Vital Signs Temp 97.5 F L 10/21/22 09:18 Pulse 82 10/21/22 09:18 Resp 16 10/21/22 09:18 BP 111/60 10/21/22 09:18 Pulse Ox 98 10/21/22 09:18 FiO2 50 10/14/22 11:00 Intake & Output 10/20/22 10/21/22 10/21/22 18:59 06:59 18:59 Intake Total 236 126 Output Total 450 200 Balance -214 -74 Intake: IV 10 Invasive Line 6 10 Oral 236 116 Output: Urine 450 200 Other: Voiding Method External Catheter Bedside Commode External Catheter # Voids 1 # Bowel Movements 1 - Exam No acute distress, oriented 3. Nasal O2 in place at 2 L. No respiratory difficulty. HEENT examination is grossly unremarkable. Neck supple. Full range of motion. No adenopathy thyromegaly or neck vein distention. Cardiovascular examination reveals regular rhythm rate. S1-S2 normal. No S3 or S4. No discernible murmur noted. Heart sounds are distant. Heart rate 71 bpm. Lungs reveal clear breath sounds. Breath sounds are equal bilaterally. No adventitious lung sounds including wheezes rhonchi or crackles. Saturations are 98% on 2 L nasal cannula. Abdomen soft bowel sounds are heard. No masses or tenderness. Extremities are intact. No cyanosis clubbing or edema. Skin is without rash or lesion. Neurologic examination is brief but nonfocal. - Labs CBC & Chem 7: 10/17/22 07:51 10/21/22 10:54 Labs: Abnormal Lab Results - Last 24 Hours (Table) 10/20/22 10/20/22 10/20/22 Range/Units 11:48 13:31 16:33 POC Glucose (mg/dL) 148 H 214 H 371 H (70-110) mg/dL 10/20/22 10/20/22 10/21/22 Range/Units 20:40 22:40 06:00 POC Glucose (mg/dL) 215 H 209 H 156 H (70-110) mg/dL Assessment and Plan Plan: Acute on chronic hypoxemic respiratory failure secondary to acute exacerbation of diastolic congestive heart failure with subsequent finding of a small segmental right lower lobe pulmonary emboli. The patient remains on oxygen at 2 L/m nasal cannula. The patient also had small bilateral pleural effusion which was contributed to hypoxemic respiratory failure and this isn't stated to improve. Non-ST segment elevation myocardial infarction . Coronary artery disease status post stenting to the left anterior descending artery with post stenting hypotension acquiring a return to the Rehabilitation Counsellor a short time later on 10/13/2022. Right ulnar artery pseudoaneurysm repair and control of hemorrhage hemat olamide/edema found to have a pseudoaneurysm, a follow-up ultrasound reveals stable findings. Obesity. Hypertension. Hypothyroidism. Hyperlipidemia. Diabetes mellitus. Gastric esophageal reflux disease. Obstructive sleep apnea suspected. Plan: Overall condition is stable Continue anticoagulants Continue Lasix 40 mg by mouth daily Continue metoprolol 25 mg by mouth twice a day Patient is currently on 2 L of oxygen by nasal cannula Incentive spirometer Increase mobility
--- NOTE | 2022-10-21 13:47 | P.DS ---
Providers Date of admission: 10/11/22 12:29 Attending physician: Teresa Fields Consults: 10/11/22 12:29 Consult Physician Routine Consulting Provider: Cardiology Flash Consult Reason/Comments: Pulmonary edema Do you want consulting provider notified?: Yes 10/13/22 10:30 Consult Physician Urgent Consulting Provider: Marcos Dhaliwal Reason/Comments: PE Do you want consulting provider notified?: Yes 10/13/22 13:12 Consult Physician Routine Consulting Provider: Cardiology Flash Consult Reason/Comments: Post Interventional Patient Do you want consulting provider notified?: Already Contacted Primary care physician: Teresa Fields Hospital Course: Final Diagnosis Acute on chronic hypoxemic respiratory failure secondary to pulmonary edema/CHF as well as pulmonary embolism Acute right lower lobe pulmonary embolism Acute diastolic and systolic heart failure Atrial flutter with RVR x one episode Non ST elevation IL status post cardiac catheterization and PCI of LAD and balloon of proximal LAD Hypertension and hypertensive cardiovascular disease Hyperlipidemia Hypothyroidism Diabetes mellitus type 1 insulin dependent GERD/esophagitis and hiatal hernia Obesity with obstructive sleep apnea and possible obesity hypoventilation syndrome needs sleep study outpatient Vitamin D Deficiency History of kidney stones History of lumbar surgery with wound dehiscence local wound care with santyl Full Code Discharge Disposition Patient is stable for discharge to subacute rehab, overall guarded prognosis secondary to multiple medical comorbidities. Patient requires close follow up on discharge with cardiology and vascular services. Patient will discharge on eliquis currently on 10 mg twice a day and will change to 5 mg twice a day start on 10/24/2022. Patient to continue on oxygen at 2 to 3 L nasal cannula. Continue on dual antiplatelet therapy. Continue local wound care to lumbar wound with santyl and moist dressing to change daily. Patient recommended to follow up with wound care on discharge. Patient does follow at [facility] wound care and has telehealth visit this week however would like to follow up locally and information is provided to follow up at the [facility] wound care center. Insulin pump has been disconnected this hospital stay and recommended to continue on levemir HS with sliding scale and scheduled insulin on discharge. Follow up with Dr. Al on discharge. Continue to monitor right wrist pseudoaneurysm repair site and bruising. There is minimal drainage from site and using dry gauze to change as needed. Notify vascular services or return to the if drainage, increases, becomes purulent, redness or swelling at site develops or if patient develops fever. Follow up with Dr. Ayala on discharge. Patient also requires sleep study outpatient and recommended to see Dr. Foreman in the office. Repeat labs in 2 to 3 days, and close follow up with primary care in 1 to 2 days. Hospital Course This is a 67-year-old female with a previous medical history significant for hypertension and hypertensive cardiovascular disease, hyperlipidemia, hypothyroidism, chronic gastroesophageal reflux disease with esophagitis, type 1 diabetes mellitus currently on insulin pump, vitamin D deficiency, diabetic neuropathy, patient also had history of spondylosis of the lumbar spine status post lumbar laminectomy back in 07/01/2022 followed by a wound dehiscence at the [facility] of the lumbar area and she ended up going back for another surgical intervention and generally fourth 2022 after that she was sent to [facility] for physical therapy rehabilitation, she had a wound that has been treated through the wound care center for the [facility] and currently has been getting Santyl and the area has almost closed up, patient has been following with Dr. Trujillo as an outpatient for her insulin pump, and she stated that her sugar has been getting high recently she presented to the office on 10/08/2021 with increased shortness of breath has been on oxygen 3 L nasal cannula that she has been increased to 5-6 Liters of oxygen, she has been complaining of increased swelling in both lower extremity is, she has been complaining of significant dyspnea on exertion, patient weight has increased to 260, patient scheduled to go to see pulmonary to rule out obesity hypoventilation syndrome as well as obstructive sleep apnea and she was supposed to go see Dr. Foreman the office however she woke up in the morning and she was complaining of significant shortness breath, when her came to check on her she looked castro and she asked him to call 911, patient presented to the emergency department at [facility] she was found to have a significant pulmonary edema on a chest x-ray with bilateral pleu ral effusion, but because be elevated d-dimer, she underwent CTA of the chest that documented the pulmonary edema and possible pulmonary emboli in the right subsegmental lower lobes, and she was started on heparin drip as well as Lasix 40 mg IV push every 8 hours she was admitted to the hospital. Patient underwent cardiac evaluation and echocardiogram was completed show evidence of mild global hypokinesia with ejection fraction 50% mild mitral regurgitation and tricuspid regurgitation no pulmonary hypertension. Patient went to the builder's labourer secondary to rising troponin levels and underwent PCI to the LAD and ballooning to the proximal LAD. Subsequently patient developed hypotension with blood pressures in the 60s over 40s and returned to her room. EKG showed significant ST elevations and some ST depressions therefore STEMI alert was activated and patient was returned to the builder's labourer. Post stenting hypotension was improved by the time she reached the builder's labourer felt likely related to stent thrombosis from distal stent edge stenosis. Patient was monitored closely in intensive care unit, stabilized and was transferred to medical floor. Patient developed pain to the right radial site. 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 patient underwent right wrist exploration with control of hemorrhage and right ulnar artery pseudoaneurysm repair with Dr. Ayala. Post procedure patient was cleared to begin anticoagulation. Patient has been cleared by all consultations for discharge. Patient has remained on oxygen support this admission and currently maintained on home dose of 2 to 3 L of oxygen. Patient has been transitioned to oral lasix for discharge. Pulmonary vascular congestion has improved. Patient has discontinued insulin pump and is currently on regimen of levemir, sliding scale and scheduled insulin as above. Patient to continue on discharge and follow up with Dr. Trujillo. Cleared for discharge to subacute rehab. 10/21/2022 Patient is evaluated today resting in bed. Patient is currently denying chest pain, denying shortness of breath. On oxygen via nasal cannula. Lungs are clear, S1 S2 auscultated and abdomen is soft and nontender. Patient is having bowel movements and urinating without difficulty. As above there is drainage noted to the pseudoaneurysm repair site and vascular surgery notified and patient is cleared for discharge to follow up with vascular services on discharge. Most recent labs showing sodium 136, potassium 4.6, BUN 24, creatinine 1.18. Blood glucose improved to low 200s. Patient is afebrile heart rate of 74, blood pressure 132/72, 99% on 2L nasal cannula. Dressing intact to lumbar back. Cleared for dc to rehab with above mentioned recommendations. Please see medication reconciliation for a list of current medication. Thank you for allowing us to participate in the care of this patient. The impression and plan of care has been dictated by Olga Duggan, Nurse Practitioner as directed. Dr. Alejandro MD I have performed a history and physical examination and medical decision making of this patient, discussed the same with the dictator, and agree with the dictators assessment and plan as written, documented as a scribe. Based on total visit time, I have performed more than 50% of this visit. Patient Condition at Discharge: Stable Plan - Discharge Summary Discharge Rx Participant: No New Discharge Prescriptions: New Furosemide [Lasix] 40 mg PO DAILY #30 tab Atorvastatin [Lipitor] 40 mg PO DAILY #30 tab Nitroglycerin Sl Tabs [Nitrostat] 0.4 mg SUBLINGUAL Q5M PRN #25 tab PRN Reason: Chest Pain Apixaban [Eliquis Starter Pack (for VTE)] 5 - 10 mg PO DIRECTED 30 Days #1 each Insulin Detemir (Levemir) [Levemir] 50 unit SQ HS each Ticagrelor [Brilinta] 90 mg PO BID #60 tab Nystatin 100,000 Unit/gm Powd [Mycostatin Powder] 1 applic TOPICAL BID #200 gm INSULIN ASPART (NovoLOG) [NovoLOG (formulary)] 12 unit SQ AC-TID each INSULIN ASPART (NovoLOG) [NovoLOG (formulary)] 0 unit SQ ACHS each Continue Metoprolol Tartrate [Lopressor] 25 mg PO BID Losartan Potassium 100 mg PO DAILY Levothyroxine Sodium [Synthroid] 112 mcg PO DAILY Famotidine [Pepcid] 20 mg PO BID Collagenase [Santyl Ointment] 1 applic TOPICAL DAILY Discontinued amLODIPine [Norvasc] 5 mg PO DAILY Insulin Aspart (For Pump) [NovoLOG (For Pump)] 0.01 unit SQ-PUMP CONTINUOUS Rosuvastatin [Crestor] 10 mg PO DAILY Potassium Citrate [Potassium Citrate ER] 10 meq PO TID Discharge Medication List Metoprolol Tartrate [Lopressor] 25 mg PO BID 01/31/14 [History] Levothyroxine Sodium [Synthroid] 112 mcg PO DAILY 05/16/19 [History] Losartan Potassium 100 mg PO DAILY 05/16/19 [History] Famotidine [Pepcid] 20 mg PO BID 04/26/20 [History] Collagenase [Santyl Ointment] 1 applic TOPICAL DAILY 10/11/22 [History] Apixaban [Eliquis Starter Pack (for VTE)] 5 - 10 mg PO DIRECTED 30 Days #1 each 10/17/22 [Rx] Atorvastatin [Lipitor] 40 mg PO DAILY #30 tab 10/17/22 [Rx] Furosemide [Lasix] 40 mg PO DAILY #30 tab 10/17/22 [Rx] Nitroglycerin Sl Tabs [Nitrostat] 0.4 mg SUBLINGUAL Q5M PRN #25 tab 10/17/22 [Rx] Nystatin 100,000 Unit/gm Powd [Mycostatin Powder] 1 applic TOPICAL BID #200 gm 10/17/22 [Rx] Ticagrelor [Brilinta] 90 mg PO BID #60 tab 10/17/22 [Rx] INSULIN ASPART (NovoLOG) [NovoLOG (formulary)] 0 unit SQ ACHS each 10/21/22 [Rx] INSULIN ASPART (NovoLOG) [NovoLOG (formulary)] 12 unit SQ AC-TID each 10/21/22 [Rx] Insulin Detemir (Levemir) [Levemir] 50 unit SQ HS each 10/21/22 [Rx] Follow up Appointment(s)/Referral(s): [facility] [Provider Group] - 1 Week eTresa Fields MD [Primary Care Provider] - 1 Week [facility] Care [NON-STAFF] - Thomas Ayala DO [STAFF PHYSICIAN] - 1 Week [facility] [NON-STAFF] - As Needed Cheryle Foreman MD [STAFF PHYSICIAN] - 10 Days Ambulatory/Diagnostic Orders: Basic Metabolic Panel [LAB.AMB] Time Frame: 3 Days, Location: None Selected Complete Blood Count w/diff [LAB.AMB] Time Frame: 3 Days, Location: None Selected Activity/Diet/Wound Care/Special Instructions: Recommend to continue off insulin pump while at rehab. Continue on sliding scale, scheduled insulin and levemir at HS. Continue to cover right radial site with dry gauze if draining. Follow up with vascular services as recommended in 1 week. If site continues to drain or becomes purulent, red, swollen notifiy vascular services or return to the [facility]. Continue with local wound care to the lumbar wound with santyl and moist dressing change daily. Patient would like to follow up at the [facility] wound care center for this instead of following up at [facility]. Recommend close follow up with cardiology on discharge in 1 to 2 weeks. Continue dual antiplatelet therapy. Patient recommended to continue on oxygen therapy at 2 to 3 Liters per home dose. Repeat labs in 2 to 3 days. Discharge Disposition: TRANSFER TO SNF/ECF
[2022-10-21] MEDS: SODIUM CHLORIDE 0.9% 1,000 ML in EMPTY BAG 1 BAG IV SCH (14:47)
[2022-10-21] MEDS ORDERED: COLLAGENASE 250 UNIT/GM OINTMENT 30 GM TUBE TOPICAL SCH (21:00)
--- NOTE | 2022-10-22 11:17 | CDI ---
Documentation Clarification Form Date: 10/22/2022 11:06:11 AM From: Madiha Castle Phone: Admit Date: 10/11/2022 12:29:00 PM Patient Name: Cara Martinez Visit Number: [id number] Discharge Date: 10/21/2022 3:45:00 PM ATTENTION: The Clinical Documentation Specialists (CDI) and [facility] Coding Staff appreciate your assistance in clarifying documentation. Please respond to the clarification below the line at the bottom and electronically sign. The CDI & [facility] Coding staff will review the response and follow-up if needed. Please note: Queries are made part of the Legal Health Record. If you have any questions, please contact the author of this message via ITS. Dr. Teresa Fields Conflicting documentation has been found in the medical record. As attending physician, please provide clarification. 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 Patient has been dealing with thisulcerationfor 3 months. At this time she is utilizing Santyl once per day. Patient states that theulcerationhas improved over the last few weeks. Treatment: Patientdeclinedto have theulcerationassessed. Please clarify which diagnosis is most appropriate: [ X ] Nonhealingulcerationwith fat layerexposure [ ] Nonhealingulcerationwith with muscle involvement without evidence ofnecrosis [ ] Other (please specify) [ ] Unable to determine (Template Last Revised: September 2020) MTDD
[2022-10-24] MEDS ORDERED: APIXABAN 5 MG TAB PO SCH (09:00)
== END 2022-10-21 15:45 | DRG 246 ==
LOC: EC 09:12 → 3SCARD 12:29 → 2SICU 10-13 15:02 → 3SCARD 10-15 13:45
PROVIDERS: ADMIT Internal Medicine; ATTEND Internal Medicine
PROC: 027034Z Dilation of Coronary Artery, One Artery with Drug-eluting Intraluminal Device, Percutaneous Approach (ICD-10-PCS; 2022-10-13)
PROC: 4A023N7 Measurement of Cardiac Sampling and Pressure, Left Heart, Percutaneous Approach (ICD-10-PCS; 2022-10-13)
PROC: B2111ZZ Fluoroscopy of Multiple Coronary Arteries using Low Osmolar Contrast (ICD-10-PCS; 2022-10-13)
PROC: B240ZZ3 Ultrasonography of Single Coronary Artery, Intravascular (ICD-10-PCS; 2022-10-13)
PROC: B2111ZZ Fluoroscopy of Multiple Coronary Arteries using Low Osmolar Contrast (ICD-10-PCS; 2022-10-13)
PROC: 027034Z Dilation of Coronary Artery, One Artery with Drug-eluting Intraluminal Device, Percutaneous Approach (ICD-10-PCS; 2022-10-13 11:00)
PROC: 03B Upper Arteries, Excision (ICD-10-PCS; principal; 2022-10-16 07:30)
DX: I11.0 Hypertensive heart disease with heart failure (principal); I21.4 Non-ST elevation (NSTEMI) myocardial infarction; I26.99 Other pulmonary embolism without acute cor pulmonale; J96.21 Acute and chronic respiratory failure with hypoxia; I50.43 Acute on chronic combined systolic (congestive) and diastolic (congestive) heart failure; I48.92 Unspecified atrial flutter; E66.2 Morbid (severe) obesity with alveolar hypoventilation; Z68.42 Body mass index [BMI] 45.0-49.9, adult; T82.867A Thrombosis due to cardiac prosthetic devices, implants and grafts, initial encounter; T81.31XA Disruption of external operation (surgical) wound, not elsewhere classified, initial encounter; I95.9 Hypotension, unspecified; E10.622 Type 1 diabetes mellitus with other skin ulcer; E10.40 Type 1 diabetes mellitus with diabetic neuropathy, unspecified; I72.1 Aneurysm of artery of upper extremity; K76.0 Fatty (change of) liver, not elsewhere classified; I08.1 Rheumatic disorders of both mitral and tricuspid valves; E03.9 Hypothyroidism, unspecified; I25.10 Atherosclerotic heart disease of native coronary artery without angina pectoris; S40.021A Contusion of right upper arm, initial encounter; L98.492 Non-pressure chronic ulcer of skin of other sites with fat layer exposed; K21.00 Gastro-esophageal reflux disease with esophagitis, without bleeding; K44.9 Diaphragmatic hernia without obstruction or gangrene; E55.9 Vitamin D deficiency, unspecified; E87.5 Hyperkalemia; E78.5 Hyperlipidemia, unspecified; M47.816 Spondylosis without myelopathy or radiculopathy, lumbar region; Y84.0 Cardiac catheterization as the cause of abnormal reaction of the patient, or of later complication, without mention of misadventure at the time of the procedure; Y71.1 Therapeutic (nonsurgical) and rehabilitative cardiovascular devices associated with adverse incidents; Y83.8 Other surgical procedures as the cause of abnormal reaction of the patient, or of later complication, without mention of misadventure at the time of the procedure; Z96.41 Presence of insulin pump (external) (internal); Z89.421 Acquired absence of other right toe(s); Z79.899 Other long term (current) drug therapy; Z79.890 Hormone replacement therapy; Z79.4 Long term (current) use of insulin; Z82.49 Family history of ischemic heart disease and other diseases of the circulatory system; Z86.73 Personal history of transient ischemic attack (TIA), and cerebral infarction without residual deficits
CPT/HCPCS: 36410; 36415; 71045; 71046; 71275; 76937; 80048; 80051; 80053; 81001; 82565; 83605; 83735; 83880; 84484; 84520; 85025; 85027; 85379; 85610; 85730; 86850; 86900; 86901; 87040; 88304; 92978; 93005; 93306; 93308; 93458; 93970; 93976; 94640; 94760; 96365; 96375; 99291

== ENCOUNTER → 2023-01-27 | Outpatient (CLI) | payer MEDICARE ==
[2023-01-27 15:08] LABS: African American GFR (CKD) 43 (>60 ml/min/1.73 sqM); Blood Urea Nitrogen 39 mg/dL (7-17); Non-African American GFR(CKD) 37 (>60 ml/min/1.73 sqM)
== END | disposition home or self-care (01) ==
LOC: RADCTMAIN 14:31
PROVIDERS: ATTEND Internal Medicine Critical Care Medicine
DX: Z53.9 Procedure and treatment not carried out, unspecified reason (principal)
CPT/HCPCS: 82565; 84520

== ENCOUNTER → 2023-02-06 | Outpatient (CLI) | payer MEDICARE ==
[~2023-02-06] MED LIST changes: -DEXAMETHASONE SOD PHOSPHATE 10 MG/ML 1 ML VIAL IV ONE; -GENTAMICIN 120 MG in SODIUM CHLORIDE 0.9% 100 ML IVPB ONE; -HYDROmorphone 0.5 MG/0.5 ML SYRINGE IVP PRN; -INSULIN ASPART (NovoLOG) 100 UNIT/ML VIAL SQ ONE; -IOHEXOL 350 MG/ML 50 ML in EMPTY BAG 1 BAG IRRIGATION ONE; -LACTATED RINGERS 1,000 ML IV SCH; -LIDOCAINE 1% 20 ML VIAL (10MG/ML) FOR IV START INTRADERMA ONE; -LIDOCAINE 1% 20 ML VIAL (10MG/ML) FOR IV START INTRADERMA PRN; -LIDOCAINE 1% INJ 10MG/ML (20 ML MDV) ONE; -METOCLOPRAMIDE 5 MG/ML 2 ML VIAL IVP PRN; -MIDAZOLAM 2 MG/2 ML VIAL ONE; -ONDANSETRON 4 MG/2 ML VIAL IVP ONE; -PROPOFOL 10 MG/ML 20 ML VIAL IV ONE; -SCOPOLAMINE 1.5MG/72HR PATCH TRANSDERM ONE; +SODIUM CHLORIDE 0.9% 1,000 ML IV NR; +SODIUM CHLORIDE 0.9% 500 ML 500 ML in EMPTY BAG 1 BAG IV PRN; -SUCCINYLCHOLINE CHLORIDE 100 MG/5 ML SYR IV ONE; -ePHEDrine SULFATE/0.9% NACL/PF 50 MG/5 ML SYRINGE IV ONE; -fentaNYL (PF) 50 MCG/ML 2 ML AMP ONE
[2023-02-06 11:04] VITALS: BP 144/55; PULSE 75; RESP 16; TEMP 98.1
[2023-02-06 13:55] LABS: African American GFR (CKD) 73 (>60 ml/min/1.73 sqM); Blood Urea Nitrogen 29 mg/dL (7-17); Non-African American GFR(CKD) 63 (>60 ml/min/1.73 sqM)
== END ==
LOC: PROCWHC3 10:41
PROVIDERS: ATTEND Internal Medicine Critical Care Medicine
DX: N28.9 Disorder of kidney and ureter, unspecified (principal); I26.99 Other pulmonary embolism without acute cor pulmonale
CPT/HCPCS: 36415; 82565; 84520; 96360

== ENCOUNTER → 2023-02-06 | Outpatient (CLI) | payer MEDICARE ==
--- NOTE | 2023-02-06 14:00 | CT ---
EXAMINATION TYPE: CT angio chest DATE OF EXAM: 02/06/2023 COMPARISON: 10/11/2022 HISTORY: Follow up of pulmonary embolism from September 2022 CT DLP: 669.7 mGycm CONTRAST: CT chest with contrast and 3D reconstruction with MIP imaging is performed with IV Contrast, patient injected with 80, wasted 23 mL of Isovue 370. Contrast-enhanced CT of the chest was performed through the course of the pulmonary arteries with ty g and mediastinal window settings submitted. 3D reconstruction with MIP imaging was also performed. PULMONARY ARTERIES: The pulmonary arteries and their major tributaries are patent. I do not see yuni dence for sizable filling defect to suggest pulmonary embolic process. LUNGS: The lungs are clear and free of infiltrate. No evidence for atelectasis. No pulmonary nodule or mass is detected. No pleural effusion. MEDIASTINUM: Thoracic aorta is of normal caliber. The heart is mildly enlarged. No evidence for med iastinal mass. No mediastinal lymph nodes greater than 1cm. Fixed hiatal hernia unchanged. HILAR STRUCTURES: No evidence for mass. No hilar lymph nodes greater than 1 cm. UPPER ABDOMEN: There is a noncalcified gallstone. IMPRESSION: 1. No evidence for Pulmonary embolism at this time.
== END | disposition home or self-care (01) ==
LOC: RADCTMAIN 13:11
PROVIDERS: ATTEND Internal Medicine Critical Care Medicine
DX: I26.99 Other pulmonary embolism without acute cor pulmonale (principal)
CPT/HCPCS: 71275; Q9967

== ENCOUNTER 2024-08-21 13:32 | Inpatient (IN) | payer MEDICARE ==
--- NOTE | 2024-08-21 13:53 | ED ---
General Adult HPI - General Chief complaint: Recheck/Abnormal Lab/Rx Stated complaint: weakness Time Seen by Provider: 08/21/24 13:50 Source: patient, EMS Mode of arrival: EMS Limitations: no limitations - History of Present Illness Initial comments: Patient presents to the ED by ambulance for evaluation with her at bedside. Patient had blood work drawn at her PCP appointment 4 days ago, and she states that she was called today to inform her that her hemoglobin was 6.8. She was also advised to come to the ED for blood transfusion. Patient states that she has had nausea and vomiting intermittently over the past 4 days, and she also states that she has felt dyspneic at times over the past 4 days. Patient admits to having chronic and unchanged back pain, but she denies any new pain. Patient denies trauma or injury, fever or chills, headache, focal neuro deficit, chest pain or pressure, cough or cold symptoms, palpitations, dizziness , lightheadedness, abdominal pain, diarrhea or constipation, bloody or melanotic stool, hematemesis, dysuria or urinary symptoms, decreased urine output, leg or calf swelling or pain, or any other symptoms or complaints. - Related Data Home Medications Medication Instructions Recorded Confirmed Metoprolol Tartrate [Lopressor] 25 mg PO BID 01/31/14 02/06/23 Levothyroxine Sodium [Synthroid] 112 mcg PO DAILY 05/16/19 02/06/23 Losartan Potassium 100 mg PO DAILY 05/16/19 02/06/23 Famotidine [Pepcid] 20 mg PO BID 04/26/20 02/06/23 Collagenase [Santyl Ointment] 1 applic TOPICAL DAILY 10/11/22 02/06/23 Previous Rx's Medication Instructions Recorded Apixaban [Eliquis Starter Pack 5 - 10 mg PO DIRECTED 30 Days 10/17/22 (for VTE)] #1 each Atorvastatin [Lipitor] 40 mg PO DAILY #30 tab 10/17/22 Furosemide [Lasix] 40 mg PO DAILY #30 tab 10/17/22 Nitroglycerin Sl Tabs [Nitrostat] 0.4 mg SUBLINGUAL Q5M PRN #25 tab 10/17/22 Nystatin 100,000 Unit/gm Powd 1 applic TOPICAL BID #200 gm 10/17/22 [Mycostatin Powder] Ticagrelor [Brilinta] 90 mg PO BID #60 tab 10/17/22 INSULIN ASPART (NovoLOG) [NovoLOG 0 unit SQ ACHS each 10/21/22 (formulary)] INSULIN ASPART (NovoLOG) [NovoLOG 12 unit SQ AC-TID each 10/21/22 (formulary)] Insulin Detemir (Levemir) [Levemir] 50 unit SQ HS each 10/21/22 Allergies Allergy/AdvReac Type Severity Reaction Status Date / Time No Known Allergies Allergy Verified 08/21/24 13:41 Review of Systems ROS Statement: Those systems with pertinent positive or pertinent negative responses have been documented in the HPI. ROS Other: All systems not noted in ROS Statement are negative. Past Medical History Past Medical History: Diabetes Mellitus, Hypertension Additional Past Medical History / Comment(s): hypothyroid, kidney stone, GLUCOMA, hx of PE History of Any Multi-Drug Resistant Organisms: None Reported Past Surgical History: Back Surgery, Hysterectomy Additional Past Surgical History / Comment(s): kidney stones removed and stent CATARACTS REMOVED AND STENT PUT IN FOR GLUCOMA. 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, heart stent 2021 Past Anesthesia/Blood Transfusion Reactions: Previous Problems w/ Anesthesia, Postoperative Nausea & Vomiting (PONV) Past Psychological History: No Psychological Hx Reported Smoking Status: Never smoker - Past Family History Mother Family Medical History: No Reported History Father Additional Family Medical History / Comment(s): Heart history General Exam Limitations: no limitations General appearance: alert, in no apparent distress Head exam: Present: atraumatic Eye exam: Present: normal appearance, PERRL, EOMI ENT exam: Present: mucous membranes moist Neck exam: Present: other (Trachea is in midline) Respiratory exam: Present: normal lung sounds bilaterally. Absent: respiratory distress, wheezes, rales, rhonchi, stridor Cardiovascular Exam: Present: regular rate, normal rhythm, normal heart sounds, other (Normal radial pulses bilaterally) GI/Abdominal exam: Present: soft, other (Obese abdomen). Absent: tenderness, guarding Rectal exam: Present: normal inspection, normal rectal tone, other (Brown- colored stool was retrieved on digital rectal exam and sent for Hemoccult testing). Absent: black stool, bloody stool, tenderness Extremities exam: Absent: tenderness, pedal edema, calf tenderness Neurological exam: Present: alert, oriented X3. Absent: motor sensory deficit Psychiatric exam: Present: normal affect Skin exam: Present: warm, dry, other (Slightly pale in color) Course Vital Signs 08/21/24 13:35 Pulse Rate 101 H Respiratory 20 Rate Blood Pressure 105/59 O2 Sat by Pulse 100 Oximetry - Reevaluation(s) Reevaluation #1: 08/21/24 15:11 Case, H&P, test results and ED management thus far were discussed with Dr. Keenan. He accepts hospital admission. He agrees with cardiology consultation. He also requests to put general surgery on consult for the patient. He has no further recommendations at this time. 08/21/24 15:24 Patient and are aware the patient's test results, as well as my discussion with Dr. Fields as above. Patient remains alert and breathing comfortably. Patient denies development of any new symptoms while in the ED. Patient continues to have a normal blood pressure. Patient continues to deny having any chest pain or pressure. Patient agrees with hospital admission at this time. EKG Findings - EKG Comments: EKG Findings:: ED physician interpretation (interpreted by me): Sinus tachycardia, no ectopy, ventricular rate of 102 bpm, normal CO and QRS intervals, appearance of incomplete left bundle branch block, normal QT interval, normal axis, no ST elevation Medical Decision Making - Medical Decision Making Was pt. sent in by a medical professional or institution (, [facility], [facility], urgent care, hospital, or long-term...) When possible be specific @ -Patient was sent to the ED by her PCPs office. Did you speak to anyone other than the patient for history (EMS, parent, family, police, friend...)? What history was obtained from this source @ -No Did you review nursing and triage notes (agree or disagree)? Why? @ -I reviewed and agree with nursing and triage notes Were old charts reviewed (outside hosp., previous admission, EMS record, old EKG, old radiological studies, urgent care reports/EKG's, long-term records)? Report findings @ -No old charts were reviewed Differential Diagnosis (chest pain, altered mental status, abdominal pain women, abdominal pain men, vaginal bleeding, weakness, fever, dyspnea, syncope, headache, dizziness, GI bleed, back pain, seizure, CVA, palpatations, mental health, musculoskeletal)? @ -Anemia, GI bleed, hemorrhage, hematologic disorder, dyspnea, COPD, CHF, asthma, pleural effusion, fluid overload, ACS/TX, lab error, nausea and vomiting, gastroenteritis, food toxicity, electrolyte abnormality, hy perglycemia, this is not meant to be a complete list. EKG interpreted by me (3pts min.). @ -As above X-rays interpreted by me (1pt min.). @ -Chest x-ray was reviewed myself and shows no acute process. I agree with the radiologist's interpretation as above. CT interpreted by me (1pt min.). @ -None done U/S interpreted by me (1pt. min.). @ -None done What testing was considered but not performed or refused? (CT, X-rays, U/S, labs)? Why? @ -None What meds were considered but not given or refused? Why? @ -None Did you discuss the management of the patient with other professionals (professionals i.e. , PA, [facility], lab, RT, psych nurse, social media community manager, heading and priming tool setter, teacher, revenue officer, rehabilitation case coordinator)? Give summary @ -As above. Was smoking cessation discussed for >3mins.? @ -No Was critical care preformed (if so, how long)? @ -Yes, 40 minutes. Were there social determinants of health that impacted care today? How? (Homelessness, low income, unemployed, alcoholism, drug addiction, transp ortation, low edu. Level, literacy, decrease access to med. care, senior care, rehab)? @ -No Was there de-escalation of care discussed even if they declined (Discuss DNR or withdrawal of care, Hospice)? DNR status @ -No What co-morbidities impacted this encounter? (DM, HTN, Smoking, COPD, CAD, Cancer, CVA, ARF, Chemo, Hep., AIDS, mental health diagnosis, sleep apnea, morbid obesity)? @ -None Was patient admitted / discharged? Hospital course, mention meds given and route, prescriptions, significant lab abnormalities, going to OR and other pertinent info. @ -Patient's hemoglobin is noted to be 7.5 in the ED. Patient's troponin is mildly elevated. Denies having any chest pain, and her EKG is negative for any acute ischemic findings. Given the patient's anemia and elevated troponin, blood transfusion was initiated in the ED for 1 unit of packed RBCs. Patient was also given a dose of oral aspirin after her Hemoccult test came back negative. Case was discussed with the patient's PCP, Dr. Fields, and he has accepted hospital admission. He has recommended general surgery and cardiology consultations. Patient and are aware the patient's test results, and patient agrees with hospital admission at this time. Undiagnosed new problem with uncertain prognosis? @ -No Drug Therapy requiring intensive monitoring for toxicity (Heparin, Nitro, Insulin, Cardizem)? @ -No Were any procedures done? @ -No Diagnosis/symptom? @ -Anemia Acute, or Chronic, or Acute on Chronic? @ -Default Uncomplicated (without systemic symptoms) or Complicated (systemic symptoms)? @ -Default Side effects of treatment? @ -No Exacerbation, Progression, or Severe Exacerbation? @ -No Poses a threat to life or bodily function? How? (Chest pain, [place], [place], pneumonia, PE, COPD, DKA, ARF, appy, cholecystitis, CVA, Diverticulitis, Homicidal, Suicidal, threat to staff... and all critical care pts) @ -No Diagnosis/symptom? @ -Elevated troponin Acute, or Chronic, or Acute on Chronic? @ -Default Uncomplicated (without systemic symptoms) or Complicated (systemic symptoms)? @ -Default Side effects of treatment? @ -None Exacerbation, Progression, or Severe Exacerbation] @ -No Poses a threat to life or bodily function? @ -[Yes, possibly Diagnosis/symptom? @ -Nausea and vomiting Acute, or Chronic, or Acute on Chronic? @ -Acute Uncomplicated (without systemic symptoms) or Complicated (systemic symptoms)? @ -Default Side effects of treatment? @ -None Exacerbation, Progression, or Severe Exacerbation] @ -No Poses a threat to life or bodily function? @ -No - Lab Data Result diagrams: 08/21/24 13:45 08/21/24 13:45 Lab Results 08/21/24 08/21/24 08/21/24 Range/Units 13:45 13:45 13:45 WBC 7.9 (3.8-10.6) k/uL RBC 3.54 L (3.80-5.40) m/uL Hgb 7.5 L (11.4-16.0) gm/dL Hct 29.5 L (34.0-46.0) % MCV 83.3 (80.0-100.0) fL MCH 21.2 L (25.0-35.0) pg MCHC 25.5 L (31.0-37.0) g/dL RDW 19.0 H (11.5-15.5) % Plt Count 271 (150-450) k/uL MPV 7.7 Neutrophils % (Manual) 88 % Lymphocytes % (Manual) 9 % Monocytes % (Manual) 2 % Eosinophils % (Manual) 1 % Neutrophils # (Manual) 6.95 (1.3-7.7) k/uL Lymphocytes # (Manual) 0.71 L (1.0-4.8) k/uL Monocytes # (Manual) 0.16 (0-1.0) k/uL Eosinophils # (Manual) 0.08 (0-0.7) k/uL Nucleated RBCs 2 H (0-0) /100 WBC Manual Slide Review Performed Hypochromasia Marked Anisocytosis Slight Microcytosis Slight PT 12.1 (10.0-12.5) sec INR 1.1 (<1.2) APTT 19.7 L (22.0-30.0) sec Sodium 139 (137-145) mmol/L Potassium 4.2 (3.5-5.1) mmol/L Chloride 102 (98-107) mmol/L Carbon Dioxide 12 L (22-30) mmol/L Anion Gap 25 mmol/L BUN 14 (7-17) mg/dL Creatinine 0.91 (0.52-1.04) mg/dL Est GFR (CKD-EPI)AfAm 73 (>60 ml/min/1.73 sqM) Est GFR (CKD-EPI)NonAf 64 (>60 ml/min/1.73 sqM) Glucose 220 H (74-99) mg/dL Plasma Lactic Acid Klio (0.7-2.0) mmol/L Calcium 8.6 (8.4-10.2) mg/dL Total Bilirubin 0.9 (0.2-1.3) mg/dL AST 33 (14-36) U/L ALT 19 (4-34) U/L Alkaline Phosphatase 67 (38-126) U/L Troponin I (0.000-0.034) ng/mL NT-Pro-B Natriuret Pep 8880 pg/mL Total Protein 6.8 (6.3-8.2) g/dL Albumin 3.8 (3.5-5.0) g/dL Stool Occult Blood (Negative) 08/21/24 08/21/24 08/21/24 Range/Units 13:45 13:45 14:00 WBC (3.8-10.6) k/uL RBC (3.80-5.40) m/uL Hgb (11.4-16.0) gm/dL Hct (34.0-46.0) % MCV (80.0-100.0) fL MCH (25.0-35.0) pg MCHC (31.0-37.0) g/dL RDW (11.5-15.5) % Plt Count (150-450) k/uL MPV Neutrophils % (Manual) % Lymphocytes % (Manual) % Monocytes % (Manual) % Eosinophils % (Manual) % Neutrophils # (Manual) (1.3-7.7) k/uL Lymphocytes # (Manual) (1.0-4.8) k/uL Monocytes # (Manual) (0-1.0) k/uL Eosinophils # (Manual) (0-0.7) k/uL Nucleated RBCs (0-0) /100 WBC Manual Slide Review Hypochromasia Anisocytosis Microcytosis PT (10.0-12.5) sec INR (<1.2) APTT (22.0-30.0) sec Sodium (137-145) mmol/L Potassium (3.5-5.1) mmol/L Chloride (98-107) mmol/L Carbon Dioxide (22-30) mmol/L Anion Gap mmol/L BUN (7-17) mg/dL Creatinine (0.52-1.04) mg/dL Est GFR (CKD-EPI)AfAm (>60 ml/min/1.73 sqM) Est GFR (CKD-EPI)NonAf (>60 ml/min/1.73 sqM) Glucose (74-99) mg/dL Plasma Lactic Acid Kilo 3.7 H* (0.7-2.0) mmol/L Calcium (8.4-10.2) mg/dL Total Bilirubin (0.2-1.3) mg/dL AST (14-36) U/L ALT (4-34) U/L Alkaline Phosphatase (38-126) U/L Troponin I 0.165 H* (0.000-0.034) ng/mL NT-Pro-B Natriuret Pep pg/mL Total Protein (6.3-8.2) g/dL Albumin (3.5-5.0) g/dL Stool Occult Blood Negative (Negative) - Radiology Data Chest x-ray: No acute cardiopulmonary disease/process. Critical Care Time Critical Care Time: Yes Total Critical Care Time: 40 Disposition Clinical Impression: Anemia, Nausea and vomiting, Dyspnea, Elevated troponin Disposition: ADMITTED IP TO THIS [facility] Condition: Stable Is patient prescribed a controlled substance at d/c from ED?: No Referrals: Teresa Fields MD [Primary Care Provider] - 1-2 days Time of Disposition: 15:12
[2024-08-21 14:06] LABS: Anisocytosis Slight; HCT 29.5 % (34.0-46.0); HGB 7.5 gm/dL (11.4-16.0); Hypochromasia Marked; MCH 21.2 pg (25.0-35.0); MCHC 25.5 g/dL (31.0-37.0); MCV 83.3 fL (80.0-100.0); Mean Platelet Volume 7.7; Microcytosis Slight; Platelet Count 271 k/uL (150-450); RBC 3.54 m/uL (3.80-5.40)
[2024-08-21] MEDS: ONDANSETRON 4 MG/2 ML VIAL IVP STA ×2 (14:12→15:40)
[2024-08-21 14:23] LABS: INR 1.1 (<1.2); Prothrombin Time 12.1 sec (10.0-12.5)
[2024-08-21 14:27] LABS: Partial Thromboplastin Time 19.7 sec (22.0-30.0)
[2024-08-21] MEDS: ACETAMINOPHEN TAB 500 MG TAB PO STA (14:27)
[2024-08-21 14:30] LABS: ALT 19 U/L (4-34); AST 33 U/L (14-36); African American GFR (CKD) 73 (>60 ml/min/1.73 sqM); Albumin 3.8 g/dL (3.5-5.0); Alkaline Phosphatase 67 U/L (38-126); Anion Gap 25 mmol/L; Blood Urea Nitrogen 14 mg/dL (7-17); Calcium 8.6 mg/dL (8.4-10.2); Carbon Dioxide 12 mmol/L (22-30); Chloride 102 mmol/L (98-107); Glucose 220 mg/dL (74-99); Non-African American GFR(CKD) 64 (>60 ml/min/1.73 sqM); Potassium 4.2 mmol/L (3.5-5.1); Sodium 139 mmol/L (137-145); Total Bilirubin 0.9 mg/dL (0.2-1.3); Total Protein 6.8 g/dL (6.3-8.2)
[2024-08-21 14:39] LABS: NT-Pro-B-Type Natriuretic Pept 8880 pg/mL
[2024-08-21 14:59] LABS: Eosinophils # (M) 0.08 k/uL (0-0.7); Monocytes # (M) 0.16 k/uL (0-1.0); Neutrophils % (M) 88 %; Nucleated Red Blood Cells 2 /100 WBC (0-0); Total Cells Counted 200
[2024-08-21 15:00] LABS: Lymphocytes # (M) 0.71 k/uL (1.0-4.8); Neutrophils # (M) 6.95 k/uL (1.3-7.7); WBC 7.9 k/uL (3.8-10.6)
--- NOTE | 2024-08-21 15:05 | XR ---
EXAMINATION TYPE: XR chest 1V portable DATE OF EXAM: 08/21/2024 2:46 PM COMPARISON: Previous chest radiograph 10/24/2022. CLINICAL INDICATION: Female, 69 years old with history of pain; [facility] TECHNIQUE: XR chest 1V portable Frontal view of the chest. FINDINGS: Low lung volumes accentuate the cardiac silhouette and pulmonary vasculature. Lungs/Pleura: There is no evidence of pleural effusion, focal consolidation, or pneumothorax. Pulmonary vascularity: Unremarkable. Heart/mediastinum: Cardiomediastinal silhouette is unremarkable. Musculoskeletal: No acute osseous pathology. Other findings: None IMPRESSION: No acute cardiopulmonary disease/process. [facility], , 08/21/2024 3:03 PM
[2024-08-21] MEDS: SODIUM CHLORIDE 0.9% 500 ML 500 ML IV ONE (15:10)
[2024-08-21] MEDS: ASPIRIN 81 MG PO STA (15:12)
[2024-08-21] MEDS ORDERED: NALOXONE 0.4 MG/ML 1 ML VIAL IV PRN (15:23)
[2024-08-21] MEDS: HYDROcodone/APAP 5-325MG 1 EACH TAB PO PRN (18:06)
--- NOTE | 2024-08-21 18:39 | CT ---
EXAMINATION TYPE: CT abdomen pelvis w con DATE OF EXAM: 08/21/2024 6:16 PM COMPARISON: CT abdomen 11/14/2020. CLINICAL INDICATION: Female, 69 years old with history of SBO; SBO TECHNIQUE: Axial CT abdomen pelvis w con;Sagittal and coronal reformats were created on a separate w orkstation. Contrast used:100 mL of Isovue 300 with IV Contrast, (none if empty) Oral contrast used: without Oral Contrast (none if empty) CT DLP: 2217.1 mGycm, Automated exposure control for dose reduction was used. FINDINGS: LOWER CHEST: Cardiomegaly and small right pleural effusion. Trace left pleural effusion. Mild lower l obe compressive atelectasis, left greater than right. ABDOMEN LIVER: Diffusely hypoattenuating parenchyma. GALLBLADDER AND BILE DUCTS: Unremarkable. PANCREAS: Unremarkable. SPLEEN: Unremarkable. ADRENAL GLANDS: Unremarkable. KIDNEYS AND URETERS: No evidence of hydronephrosis or renal calculus. The ureters are unremarkable. PELVIS BLADDER: No evidence for wall thickening or mass given limitations of exam. REPRODUCTIVE: Uterus surgically absent. ABDOMEN & PELVIS STOMACH AND BOWEL: Colonic diverticulosis without acute diverticulitis.Moderate-sized hilar hernia wi th partial intrathoracic stomach. No evidence of bowel obstruction. PERITONEUM/RETROPERITONEUM: No evidence of pneumoperitoneum or free fluid. VASCULATURE: No evidence of aortic aneurysm. Either vascular stent grafts or severe circumferential c alcifications involving the partially visualized femoral arteries. Moderate narrowing of the proximal celiac artery and SMA due to calcified atherosclerotic plaque. MUSCULOSKELETAL: No acute osseous abnormalities. Advanced thoracic and lumbar spine degenerative cole ges again visualized with mixed lucent and sclerotic lesions. LYMPH NODES: No gross evidence for lymphadenopathy. SOFT TISSUE/ABDOMINAL WALL: Unremarkable IMPRESSION: 1. No acute abnormality in the abdomen/pelvis. Specifically, no evidence of small bowel obstruction. 2. Cardiomegaly, small right and trace left pleural effusions. 3. Colonic diverticulosis without acute diverticulitis. 4. Moderate sized hiatal hernia with partial intrathoracic stomach. [facility], , 08/21/2024 6:37 PM
[2024-08-21 20:15] LABS: Glucose,Whole Blood 279 mg/dL (70-110)
[2024-08-21] MEDS: NITROGLYCERIN OINT 1 INCH/GM PACKET TOPICAL SCH (21:16)
[2024-08-21] MEDS: SODIUM CHLORIDE 0.9% 1,000 ML IV SCH (21:20)
--- NOTE | 2024-08-21 21:38 | P.CON ---
Consult Note - . Consult date: 08/21/24 Assessment/Plan:: Patient presented to the ED by ambulance for evaluation with her at bedside. Patient had blood work drawn at her PCP appointment 4 days ago, and she states that she was called today to inform her that her hemoglobin was 6.8. She was also advised to come to the ED for blood transfusion. Patient states that she has had nausea and vomiting intermittently over the past 4 days, and she also states that she has felt dyspneic at times over the past 4 days. Patient admits to having chronic and unchanged back pain, but she denies any new pain. Patient denies trauma or injury, fever or chills, headache, focal neuro deficit, chest pain or pressure, cough or cold symptoms, palpitations, dizziness, lightheadedness, abdominal pain, diarrhea or constipation, bloody or melanotic stool, hematemesis, dysuria or urinary symptoms, decreased urine output, leg or calf swelling or pain, or any other symptoms or complaints. She states she had a colonoscopy within the last two to three years which she states was normal. Review of Systems ROS Statement: Those systems with pertinent positive or pertinent negative responses have been documented in the HPI. ROS Other: All systems not noted in ROS Statement are negative. Past Medical History Past Medical History: Diabetes Mellitus, Hypertension Additional Past Medical History / Comment(s): hypothyroid, kidney stone, GLUCOMA, hx of PE History of Any Multi-Drug Resistant Organisms: None Reported Past Surgical History: Back Surgery, Hysterectomy Additional Past Surgical History / Comment(s): kidney stones removed and stent CATARACTS REMOVED AND STENT PUT IN FOR GLUCOMA. 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, heart stent 2021 Past Anesthesia/Blood Transfusion Reactions: Previous Problems w/ Anesthesia, Postoperative Nausea & Vomiting (PONV) Past Psychological History: No Psychological Hx Reported Smoking Status: Never smoker - Past Family History Mother Family Medical History: No Reported History Father Additional Family Medical History / Comment(s): Heart history General Exam Limitations: no limitations General appearance: alert, in no apparent distress Head exam: Present: atraumatic Eye exam: Present: normal appearance, PERRL, EOMI ENT exam: Present: mucous membranes moist Neck exam: Present: other (Trachea is in midline) Respiratory exam: Present: normal lung sounds bilaterally. Absent: respiratory distress, wheezes, rales, rhonchi, stridor Cardiovascular Exam: Present: regular rate, normal rhythm, normal heart sounds, other (Normal radial pulses bilaterally) GI/Abdominal exam: Present: soft, other (Obese abdomen). Absent: tenderness, guarding Rectal exam: Present: normal inspection, normal rectal tone, other (Brown- colored stool was retrieved on digital rectal exam and sent for Hemoccult testing). Absent: black stool, bloody stool, tenderness Extremities exam: Absent: tenderness, pedal edema, calf tenderness Neurological exam: Present: alert, oriented X3. Absent: motor sensory deficit Psychiatric exam: Present: normal affect Skin exam: Present: warm, dry, other (Slightly pale in color) 69 year old female with Anemia and Nausea/Vomiting -CT-AP shows no evidence of SBO however there is a moderate sized hiatal hernia -Transfuse PRBCs -Check post transfusion hgb -Ok for Regular Diet -Will start patient on PPI -No plan for endoscopy at this time Chris Decker DO [facility] [phone]
[2024-08-21] MEDS: DULoxetine HCL 30 MG CAPSULE.DR PO SCH (22:21)
[2024-08-21] MEDS: ONDANSETRON 4 MG/2 ML VIAL IVP PRN (22:21)
[2024-08-21] MEDS: APIXABAN 5 MG TAB PO SCH (22:21)
[2024-08-21] MEDS: ATORVASTATIN 40 MG TAB PO SCH (22:21)
[2024-08-21] MEDS: INSULIN DETEMIR (LEVEMIR) 100 UNIT/ML SYR SQ SCH (22:22)
[2024-08-21] MEDS: METOPROLOL TARTRATE 25 MG TAB PO SCH (22:22)
[2024-08-21] MEDS: FAMOTIDINE 20 MG TAB PO SCH (22:25)
[2024-08-22 06:13] LABS: Glucose,Whole Blood 233 mg/dL (70-110)
[2024-08-22] MEDS: INSULIN ASPART (NovoLOG) 100 UNIT/ML VIAL SQ SCH ×2 (06:32→06:33)
[2024-08-22 06:36] LABS: Anisocytosis Slight; HCT 30.7 % (34.0-46.0); HGB 7.9 gm/dL (11.4-16.0); Hypochromasia Marked; MCH 21.4 pg (25.0-35.0); MCHC 25.8 g/dL (31.0-37.0); Mean Platelet Volume 7.3; Microcytosis Slight; Platelet Count 263 k/uL (150-450); Poikilocytosis Moderate; RDW 19.3 % (11.5-15.5)
[2024-08-22 06:55] LABS: ALT 19 U/L (4-34); AST 49 U/L (14-36); African American GFR (CKD) 61 (>60 ml/min/1.73 sqM); Albumin 3.5 g/dL (3.5-5.0); Alkaline Phosphatase 58 U/L (38-126); Anion Gap 22 mmol/L; Blood Urea Nitrogen 19 mg/dL (7-17); Calcium 8.1 mg/dL (8.4-10.2); Carbon Dioxide 15 mmol/L (22-30); Chloride 104 mmol/L (98-107); Glucose 228 mg/dL (74-99); Non-African American GFR(CKD) 53 (>60 ml/min/1.73 sqM); Potassium 4.3 mmol/L (3.5-5.1); Sodium 141 mmol/L (137-145); Total Bilirubin 0.8 mg/dL (0.2-1.3); Total Protein 6.4 g/dL (6.3-8.2)
[2024-08-22] MEDS ORDERED: METOCLOPRAMIDE 5 MG/ML 2 ML VIAL IVP PRN (06:58)
[2024-08-22 08:07] LABS: Lymphocytes # (M) 1.39 k/uL (1.0-4.8); Metamyelocytes # (M) 0.14 k/uL (0); Metamyelocytes % 1 %; Monocytes # (M) 0.42 k/uL (0-1.0); Neutrophils # (M) 12.09 k/uL (1.3-7.7); Neutrophils % (M) 87 %; Nucleated Red Blood Cells 1 /100 WBC (0-0); Total Cells Counted 200; WBC 13.9 k/uL (3.8-10.6)
[2024-08-22 08:08] LABS: Crenated RBC Present; Poikilocytosis (M) Present
[2024-08-22 08:09] LABS: RBC Fragments Present
[2024-08-22] MEDS: ACETAMINOPHEN IV (For NPO) 1,000 MG in EMPTY BAG 1 BAG IVPB PRN (08:19)
[2024-08-22] MEDS ORDERED: ALPRAZolam 0.5 MG TAB PO PRN (09:51)
[2024-08-22] MEDS ORDERED: NITROGLYCERIN SL TABS 0.4 MG TAB SUBLINGUAL PRN (09:51)
[2024-08-22] MEDS ORDERED: ALPRAZolam 0.25 MG TAB PO PRN (09:51)
--- NOTE | 2024-08-22 09:59 | P.CRDCN ---
History of Present Illness History of present illness: HISTORY OF PRESENT ILLNESS: This is a 69-year-old female with a past medical history significant for congestive heart failure, atrial flutter, coronary artery disease with previous stenting, chronic hypoxic respiratory failure on home oxygen, hypertension, hyperlipidemia, hypothyroidism, right ulnar pseudoaneurysm with repair, and diabetes. Patient follows in the office with Dr. Elkins. We have been asked to see the patient in consultation for elevated troponins. Patient examined at the bedside. Patient states starting Friday night she has been having nausea with episodes of vomiting. She states that she had blood work drawn at her PCP office and she was called and instructed to come to the emergency room due to a low hemoglobin. Apparently hemoglobin was 6.8. However hemoglobin on admission here was 7.5. She did receive 1 unit RBCs. Hemoglobin this morning 7.9. Trino garber denies any signs or symptoms of GI bleeding. She denies any chest pain or shortness of breath. She has been resumed on her Eliquis and her aspirin. She has been evaluated by general surgery with no plans for endoscopy at this time. DIAGNOSTICS: - EKG reveals sinus tachycardia with no signs of acute ischemia - Chest xray negative for acute process - Laboratory data: WBC 13.9. Hemoglobin 7.9. Platelet count 263. Sodium 141. Potassium 4.3. BUN 19. Creatinine 1.06. Troponin 0.165. 1.180. 2.070. - Current home cardiac medications include Eliquis 5 mg twice a day, Lipitor 40 mg at night, Lasix 20 mg daily as needed, losartan 100 mg daily, metoprolol to tartrate 25 mg twice a day. - Most recent echocardiogram obtained in September 2022 revealed ejection fraction 45 to 50% with anterior apical and anterior septal hypokinesis. No pericardial effusion. - Cardiac catheterization history: 09/2022 revealing mid LAD 50% stenosis status post PCI of the mid LAD with drug-eluting stent. REVIEW OF SYSTEMS: At the time of my exam: CONSTITUTIONAL: Denies fever or chills. HEENT: Denies blurred vision, vision changes, or eye pain. Denies hemoptysis CARDIOVASCULAR: Denies chest pain. Denies orthopnea. Denies PND. Denies palpitations RESPIRATORY: Denies shortness of breath. GASTROINTESTINAL: Denies abdominal pain. Denies nausea or vomiting. HEMATOLOGIC: Denies bleeding disorders. GENITOURINARY: Denies any blood in urine. SKIN: Denies pruitis. Denies rash. PHYSICAL EXAM: VITAL SIGNS: Reviewed. GENERAL: Well-developed in no acute distress. HEENT: Head is normocephalic. Pupils are equal, round. Sclerae anicteric. Mucous membranes of the mouth are moist. Neck supple. No JVD or thyromegaly LUNGS: Respirations even and unlabored. Lungs essentially clear to auscultation bilaterally. HEART: Regular rate and rhythm. S1 and S2 heard. ABDOMEN: Soft. Nondistended. Nontender. EXTREMITIES: Normal range of motion. No clubbing or cyanosis. Peripheral pulses intact. No lower extremity edema NEUROLOGIC: Awake and alert. Oriented x 3. ASSESSMENT: Nausea and vomiting, resolved Acute on chronic anemia without signs of GI bleeding Non-STEMI Coronary artery disease with previous stenting of the mid LAD, 2022 Paroxysmal atrial flutter Chronic heart failure with mildly reduced EF, 45 to 50%, currently euvolemic Hypertension Hyperlipidemia Hypothyroidism Diabetes History of right ulnar pseudoaneurysm with repair History of DVT PLAN: Obtain 2D echo to assess cardiac structure and function Resume home cardiac medications Continue to monitor hemoglobin Hold Eliquis for pending heart catheterization. No IV heparin at this time per Dr. Gomez N.p.o. at midnight Patient to undergo cardiac catheterization tomorrow with Dr. Elkins Further recommendations pending patient course Nurse practitioner note has been reviewed by physician. Signing provider agrees with the documented findings, assessment, and plan of care documented by [employer] as a scribe. Past Medical History Past Medical History: Diabetes Mellitus, Hypertension, Myocardial Infarction ([place]) Additional Past Medical History / Comment(s): hypothyroid, kidney stone, GLUCOMA, hx of PE Last Myocardial Infarction Date:: 2022 History of Any Multi-Drug Resistant Organisms: None Reported Past Surgical History: Back Surgery, Hysterectomy Additional Past Surgical History / Comment(s): kidney stones removed and stent CATARACTS REMOVED AND STENT PUT IN FOR GLUCOMA. 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, heart stent 2021 Past Anesthesia/Blood Transfusion Reactions: Previous Problems w/ Anesthesia, Postoperative Nausea & Vomiting (PONV) Additional Past Anesthesia/Blood Transfusion Reaction / Comment(s): no blood trasnfusion reaction after 1 unit of PRBC Past Psychological History: No Psychological Hx Reported Smoking Status: Never smoker Past Alcohol Use History: None Reported Past Drug Use History: None Reported - Past Family History Mother Family Medical History: No Reported History Father Additional Family Medical History / Comment(s): Heart history Medications and Allergies Home Medications Medication Instructions Recorded Confirmed Type Metoprolol Tartrate [Lopressor] 25 mg PO BID 01/31/14 08/21/24 History Levothyroxine Sodium [Synthroid] 112 mcg PO DAILY 05/16/19 08/21/24 History Losartan Potassium 100 mg PO DAILY 05/16/19 08/21/24 History Famotidine [Pepcid] 20 mg PO BID 04/26/20 08/21/24 History Acetaminophen Tab [Tylenol Tab] 1,000 mg PO Q6HR PRN 08/21/24 08/21/24 History Apixaban [Eliquis] 5 mg PO BID 08/21/24 08/21/24 History Atorvastatin [Lipitor] 40 mg PO HS 08/21/24 08/21/24 History DULoxetine HCL [Cymbalta] 30 mg PO HS 08/21/24 08/21/24 History Empagliflozin [Jardiance] 25 mg PO DAILY 08/21/24 08/21/24 History Furosemide [Lasix] 20 mg PO DAILY PRN 08/21/24 08/21/24 History Insulin Aspart (For Pump) [NovoLOG 0.01 unit SQ-PUMP CONTINUOUS 08/21/24 08/21/24 History (For Pump)] methocarbamoL [Robaxin] 500 mg PO BID 08/21/24 08/21/24 History Allergies Allergy/AdvReac Type Severity Reaction Status Date / Time No Known Allergies Allergy Verified 08/21/24 17:58 Physical Exam Vitals: Vital Signs Temp Pulse Pulse Resp BP BP Pulse Ox 08/22/24 06:30 104/51 08/22/24 04:00 97.5 F L 95 18 107/69 100 08/22/24 02:19 110 H 08/22/24 01:18 95/46 08/22/24 00:00 98.1 F 110 H 18 123/75 99 08/21/24 21:15 111 H 08/21/24 20:56 97.8 F 111 H 20 118/73 100 08/21/24 18:49 97.6 F 105 H 18 126/50 100 08/21/24 18:02 97.8 F 100 17 142/78 08/21/24 16:15 97.9 F 103 H 18 148/70 08/21/24 15:55 98.5 F 103 H 19 151/54 08/21/24 15:41 98.0 F 104 H 18 105/58 98 08/21/24 13:35 101 H 20 105/59 100 Intake and Output 08/21/24 08/22/24 08/22/24 22:59 06:59 14:59 Intake Total 310 Output Total 450 Balance 310 -450 Intake: Blood Product 310 Rc As-1 Unit 310 [id number] Output: Urine 300 Emesis 150 Other: Voiding Method Bedside Commode Bedside Commode External Catheter External Catheter # Voids 1 Weight 115.666 kg Results 08/22/24 06:09 08/22/24 06:09 Cardiac Enzymes 08/21/24 08/21/24 08/21/24 Range/Units 13:45 13:45 18:08 AST 33 (14-36) U/L Troponin I 0.165 H* 1.180 H* (0.000-0.034) ng/mL 08/21/24 08/22/24 Range/Units 20:32 06:09 AST 49 H (14-36) U/L Troponin I 2.070 H* (0.000-0.034) ng/mL Coagulation 08/21/24 Range/Units 13:45 PT 12.1 (10.0-12.5) sec APTT 19.7 L (22.0-30.0) sec CBC 08/21/24 08/22/24 Range/Units 13:45 06:09 WBC 7.9 13.9 H (3.8-10.6) k/uL RBC 3.54 L 3.70 L (3.80-5.40) m/uL Hgb 7.5 L 7.9 L (11.4-16.0) gm/dL Hct 29.5 L 30.7 L (34.0-46.0) % Plt Count 271 263 (150-450) k/uL Comprehensive Metabolic Panel 08/21/24 08/22/24 Range/Units 13:45 06:09 Sodium 139 141 (137-145) mmol/L Potassium 4.2 4.3 (3.5-5.1) mmol/L Chloride 102 104 (98-107) mmol/L Carbon Dioxide 12 L 15 L (22-30) mmol/L BUN 14 19 H (7-17) mg/dL Creatinine 0.91 1.06 H (0.52-1.04) mg/dL Glucose 220 H 228 H (74-99) mg/dL Calcium 8.6 8.1 L (8.4-10.2) mg/dL AST 33 49 H (14-36) U/L ALT 19 19 (4-34) U/L Alkaline Phosphatase 67 58 (38-126) U/L Total Protein 6.8 6.4 (6.3-8.2) g/dL Albumin 3.8 3.5 (3.5-5.0) g/dL Current Medications Generic Name Dose Route Start Last Admin Trade Name Freq PRN Reason Stop Dose Admin Acetaminophen 1,000 mg 08/21/24 21:41 Acetaminophen Tab 500 Mg Tab PO Q6HR PRN Pain Hydrocodone Bitart/Acetaminophen 1 each 08/21/24 17:56 08/21/24 18:06 Hydrocodone/Apap 5-325mg 1 Each Tab PO 1 each Q6HR PRN Administration Pain Alprazolam 0.25 mg 08/22/24 09:51 Alprazolam 0.25 Mg Tab PO Q6HR PRN Mild Anxiety Alprazolam 0.5 mg 08/22/24 09:51 Alprazolam 0.5 Mg Tab PO Q6HR PRN Moderate Anxiety Aspirin 81 mg 08/22/24 09:00 Aspirin 81 Mg PO DAILY NATHAN Aspirin 325 mg 08/23/24 05:00 Aspirin 325 Mg Tab PO 08/23/24 05:01 ONCE ONE Atorvastatin Calcium 40 mg 08/21/24 21:45 08/21/24 22:21 Atorvastatin 40 Mg Tab PO 40 mg HS NATHAN Administration Atorvastatin Calcium 80 mg 08/23/24 05:00 Atorvastatin 80 Mg Tab PO 08/23/24 05:01 ONCE ONE Duloxetine HCl 30 mg 08/21/24 21:45 08/21/24 22:21 Duloxetine Hcl 30 Mg Capsule.Dr PO Not Given HS NATHAN Famotidine 20 mg 08/21/24 09:00 08/21/24 22:25 Famotidine 20 Mg Tab PO Not Given DAILY NATHAN Sodium Chloride 1,000 mls @ 50 mls/hr 08/21/24 20:00 08/21/24 21:20 Saline 0.9% IV 75 mls/hr .Q20H NATHAN Administration Acetaminophen 1,000 mg/ IV 100 mls @ 400 mls/hr 08/22/24 06:56 08/22/24 08:19 Solution IVPB 08/23/24 00:01 400 mls/hr Q6HR PRN Administration Pain Heparin Sodium (Porcine) 10, 1,001 mls @ 999 mls/hr 08/23/24 07:00 000 unit/ Sodium Chloride IRRIGATION 08/23/24 23:00 ONCE PRN INTRA-OP Heparin Sodium (Porcine) 2,500 250.5 mls @ 250 mls/hr 08/23/24 07:00 unit/ Sodium Chloride IRRIGATION 08/23/24 23:00 ONCE PRN INTRA-OP Sodium Chloride 1,000 ml/ IV 1,000 mls @ 115.666 mls/hr 08/23/24 01:00 Solution IV .[id number] NATHAN 1 ML/KG/HR Insulin Aspart 0 unit 08/22/24 07:30 08/22/24 06:32 Insulin Aspart (Novolog) 100 Unit/Ml Vial SQ Not Given ACHS [facility] Protocol Insulin Aspart 5 unit 08/22/24 07:30 08/22/24 06:33 Insulin Aspart (Novolog) 100 Unit/Ml Vial SQ 5 unit AC-TID NATHAN Administration Insulin Detemir 28 unit 08/22/24 21:00 Insulin Detemir (Levemir) 100 Unit/Ml Syr SQ HS [facility] Isosorbide Mononitrate 30 mg 08/22/24 09:30 Isosorbide Mononitrate Er 30 Mg Tab.Er.24h PO DAILY [facility] Levothyroxine Sodium 112 mcg 08/22/24 06:00 Levothyroxine 112 Mcg Tab PO DAILY@0600 [facility] Losartan Potassium 100 mg 08/22/24 09:00 Losartan 50 Mg Tab PO DAILY [facility] Methocarbamol 500 mg 08/22/24 09:00 Methocarbamol 500 Mg Tab PO BID [facility] Metoclopramide HCl 5 mg 08/22/24 06:58 Metoclopramide 5 Mg/Ml 2 Ml Vial IVP Q6HR PRN Nausea And Vomiting Metoprolol Tartrate 25 mg 08/21/24 21:45 08/21/24 22:22 Metoprolol Tartrate 25 Mg Tab PO 25 mg BID NATHAN Administration Naloxone HCl 0.2 mg 08/21/24 15:23 Naloxone 0.4 Mg/Ml 1 Ml Vial IV Q2M PRN Opioid Reversal Nitroglycerin 0.4 mg 08/22/24 09:51 Nitroglycerin Sl Tabs 0.4 Mg Tab SUBLINGUAL Q5M PRN Chest Pain Ondansetron HCl 4 mg 08/21/24 21:46 08/22/24 09:38 Ondansetron 4 Mg/2 Ml Vial IVP 4 mg Q6HR PRN Administration Nausea And Vomiting Pantoprazole Sodium 40 mg 08/22/24 07:30 Pantoprazole 40 Mg Tablet PO AC-BID NATHAN Intake and Output 08/21/24 08/22/24 08/22/24 22:59 06:59 14:59 Intake Total 310 Output Total 450 Balance 310 -450 Intake: Blood Product 310 Rc As-1 Unit 310 [id number] Output: Urine 300 Emesis 150 Other: Voiding Method Bedside Commode Bedside Commode External Catheter External Catheter # Voids 1 Weight 115.666 kg 08/22/24 06:09 08/22/24 06:09
--- NOTE | 2024-08-22 10:22 | P.PN ---
Progress Note - Text Progress Note Date: 08/22/24 No acute events overnight. Denies bloody bowel movements. Nausea improved. No vomiting. General appearance: alert, in no apparent distress Head exam: Present: atraumatic Eye exam: Present: normal appearance, PERRL, EOMI ENT exam: Present: mucous membranes moist Neck exam: Present: other (Trachea is in midline) Respiratory exam: Present: normal lung sounds bilaterally. Absent: respiratory distress, wheezes, rales, rhonchi, stridor Cardiovascular Exam: Present: regular rate, normal rhythm, normal heart sounds, other (Normal radial pulses bilaterally) GI/Abdominal exam: Present: soft, other (Obese abdomen). Absent: tenderness, guarding Rectal exam: Present: normal inspection, normal rectal tone, other (Brown- colored stool was retrieved on digital rectal exam and sent for Hemoccult testing). Absent: black stool, bloody stool, tenderness Extremities exam: Absent: tenderness, pedal edema, calf tenderness Neurological exam: Present: alert, oriented X3. Absent: motor sensory deficit Psychiatric exam: Present: normal affect Skin exam: Present: warm, dry, other (Slightly pale in color) 69 year old female with Anemia and Nausea/Vomiting -CT-AP shows no evidence of SBO however there is a moderate sized hiatal hernia -Monitor Hemoglobin -Recommned Hematology consult -Ok for Regular Diet -Will start patient on PPI -No plan for endoscopy at this time Chris Decker DO [facility] [phone]
[2024-08-22 11:17] LABS: Glucose,Whole Blood 230 mg/dL (70-110)
[2024-08-22 11:20] LABS: Reticulocyte % 1.4 % (0.5-2.0)
[2024-08-22] MEDS: ASPIRIN 81 MG PO SCH (12:23)
[2024-08-22] MEDS: ISOSORBIDE MONONITRATE ER 30 MG TAB.ER.24H PO SCH (12:23)
[2024-08-22] MEDS: methocarbamoL 500 MG TAB PO SCH (12:23)
[2024-08-22] MEDS: LOSARTAN 50 MG TAB PO SCH (12:23)
[2024-08-22] MEDS: LEVOTHYROXINE 112 MCG TAB PO SCH (12:26)
[2024-08-22] MEDS: PANTOPRAZOLE 40 MG TABLET PO SCH (12:26)
--- NOTE | 2024-08-22 13:57 | P.HPIM ---
History of Present Illness H&P Date: 08/22/24 History of present illness; patient is a 69-year-old lady with past medical history significant for coronary artery disease, PE, diabetes type 1, hypertension, kidney stones, TIA presents the ER after being referred by her PCP for abnormal labs. Patient stated that she was seen at her PCP office a couple of days ago where she had her blood work drawn. Patient stated that she has been feeling weak for the last few days. Patient complaining of nausea and vomiting. Patient was complaining of shortness of breath that was present on rest as on exertion. Patient denies any blood in the stool. There is no complaint of any hematemesis. There was no complaint of any chest pain. Patient denies any orthopnea or PND. Patient continued to feel weak. Patient received a call from her PCP office stating that her hemoglobin was low at 6.8 and they wanted her to come to the hospital Initial lab work done in the ER showed WBC 7.9, hemoglobin 7.5, platelet count 271, sodium 139, potassium 4.2, BUN 14, creatinine 0.91, lactate 3.7, troponin 0.165 EKG done in the ER showed heart rate of 102, no ST segment elevation or depression seen, no T-wave inversions seen. Chest x-ray done in the ER showed no acute cardiopulmonary process/disease CT abdominal pelvis done showed no acute abnormality abdominal/pelvis. No evidence of small bowel obstruction. Cardiomegaly. Colonic diverticulosis without acute diverticulitis Patient admitted to internal medicine service REVIEW OF SYSTEMS: CONSTITUTIONAL: No fever, no malaise, no fatigue. HEENT: No recent visual problems or hearing problems. Denied any sore throat. CARDIOVASCULAR: As mentioned above PULMONARY: As mentioned above GASTROINTESTINAL: As mentioned above NEUROLOGICAL: No headaches, no weakness, no numbness. HEMATOLOGICAL: Denies any bleeding or petechiae. GENITOURINARY: Denies any burning micturition, frequency, or urgency. MUSCULOSKELETAL/RHEUMATOLOGICAL: Denies any joint pain, swelling, or any muscle pain. ENDOCRINE: Denies any polyuria or polydipsia. The rest of the 14-point review of systems is negative. PHYSICAL EXAMINATION: GENERAL: The patient is alert and oriented x3, not in any acute distress. Well developed, well nourished. HEENT: Pupils are round and equally reacting to light. EOMI. No scleral icterus. No conjunctival pallor. Normocephalic, atraumatic. No pharyngeal erythema. No thyromegaly. CARDIOVASCULAR: S1 and S2 present. No murmurs, rubs, or gallops. PULMONARY: Chest is clear to auscultation, no wheezing or crackles. ABDOMEN: Soft, nontender, nondistended, normoactive bowel sounds. No palpable organomegaly. MUSCULOSKELETAL: No joint swelling or deformity. EXTREMITIES: No cyanosis, clubbing, or pedal edema. NEUROLOGICAL: Gross neurological examination did not reveal any focal deficits. SKIN: No rashes. Assessment and plan Anemia with negative FOBT Elevated troponin Coronary artery disease status post stenting to the left anterior descending artery with post stenting History of right lower lobe PE Chronic hypoxic respiratory failure Right ulnar artery pseudoaneurysm repair and control of hemorrhage hematoma/edema Gastric esophageal reflux disease. Hypertension hyperlipidemia Hypothyroidism Obesity Obesity hypoventilation syndrome Monitor vital signs Monitor CBC Monitor CMP Continue telemetry monitoring Fecal occult blood is negative, will repeat FOBT, will order anemia workup with vitamin B12, folic acid, iron saturation levels Continue Protonix twice a day Trend troponins Ordered 2D echo Aspirin Lipitor resume. Hold anticoagulation for now Ordered blood sugar monitoring, ordered sliding scale insulin and home regimen of insulin Consult cardiology Consult surgery, currently there is no GI coverage in the hospital Labs and medication were reviewed.. Continue same treatment. Continue with symptomatic treatment. Resume home medication. Monitor labs and vitals. DVT and GI prophylaxis. Further recommendations as per clinical course of the patient Dictation was produced using [employer] dictation software. please excuse any gram matical, word or spelling errors. Past Medical History Past Medical History: Diabetes Mellitus, Hypertension, Myocardial Infarction ([place]) Additional Past Medical History / Comment(s): hypothyroid, kidney stone, GLUCOMA, hx of PE Last Myocardial Infarction Date:: 2022 History of Any Multi-Drug Resistant Organisms: None Reported Past Surgical History: Back Surgery, Hysterectomy Additional Past Surgical History / Comment(s): kidney stones removed and stent CATARACTS REMOVED AND STENT PUT IN FOR GLUCOMA. 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, heart stent 2021 Past Anesthesia/Blood Transfusion Reactions: Previous Problems w/ Anesthesia, Postoperative Nausea & Vomiting (PONV) Additional Past Anesthesia/Blood Transfusion Reaction / Comment(s): no blood trasnfusion reaction after 1 unit of PRBC Past Psychological History: No Psychological Hx Reported Smoking Status: Never smoker Past Alcohol Use History: None Reported Past Drug Use History: None Reported - Past Family History Mother Family Medical History: No Reported History Father Additional Family Medical History / Comment(s): Heart history Medications and Allergies Home Medications Medication Instructions Recorded Confirmed Type Metoprolol Tartrate [Lopressor] 25 mg PO BID 01/31/14 08/21/24 History Levothyroxine Sodium [Synthroid] 112 mcg PO DAILY 05/16/19 08/21/24 History Losartan Potassium 100 mg PO DAILY 05/16/19 08/21/24 History Famotidine [Pepcid] 20 mg PO BID 04/26/20 08/21/24 History Acetaminophen Tab [Tylenol Tab] 1,000 mg PO Q6HR PRN 08/21/24 08/21/24 History Apixaban [Eliquis] 5 mg PO BID 08/21/24 08/21/24 History Atorvastatin [Lipitor] 40 mg PO HS 08/21/24 08/21/24 History DULoxetine HCL [Cymbalta] 30 mg PO HS 08/21/24 08/21/24 History Empagliflozin [Jardiance] 25 mg PO DAILY 08/21/24 08/21/24 History Furosemide [Lasix] 20 mg PO DAILY PRN 08/21/24 08/21/24 History Insulin Aspart (For Pump) [NovoLOG 0.01 unit SQ-PUMP CONTINUOUS 08/21/24 08/21/24 History (For Pump)] methocarbamoL [Robaxin] 500 mg PO BID 08/21/24 08/21/24 History Allergies Allergy/AdvReac Type Severity Reaction Status Date / Time No Known Allergies Allergy Verified 08/21/24 17:58 Physical Exam Vitals: Vital Signs Temp Pulse Pulse Resp BP BP Pulse Ox 08/22/24 06:30 104/51 08/22/24 04:00 97.5 F L 95 18 107/69 100 08/22/24 02:19 110 H 08/22/24 01:18 95/46 08/22/24 00:00 98.1 F 110 H 18 123/75 99 08/21/24 21:15 111 H 08/21/24 20:56 97.8 F 111 H 20 118/73 100 08/21/24 18:49 97.6 F 105 H 18 126/50 100 08/21/24 18:02 97.8 F 100 17 142/78 08/21/24 16:15 97.9 F 103 H 18 148/70 08/21/24 15:55 98.5 F 103 H 19 151/54 08/21/24 15:41 98.0 F 104 H 18 105/58 98 08/21/24 13:35 101 H 20 105/59 100 Intake and Output 08/21/24 08/22/24 08/22/24 22:59 06:59 14:59 Intake Total 310 Output Total 450 Balance 310 -450 Intake: Blood Product 310 Rc As-1 Unit 310 [id number] Output: Urine 300 Emesis 150 Other: Voiding Method Bedside Commode Bedside Commode External Catheter External Catheter # Voids 1 Weight 115.666 kg Results CBC & Chem 7: 08/22/24 06:09 08/22/24 06:09 Labs: Abnormal Lab Results - Last 24 Hours (Table) 08/21/24 08/21/24 08/21/24 Range/Units 13:45 13:45 13:45 WBC (3.8-10.6) k/uL RBC 3.54 L (3.80-5.40) m/uL Hgb 7.5 L (11.4-16.0) gm/dL Hct 29.5 L (34.0-46.0) % MCH 21.2 L (25.0-35.0) pg MCHC 25.5 L (31.0-37.0) g/dL RDW 19.0 H (11.5-15.5) % Neutrophils # (Manual) (1.3-7.7) k/uL Lymphocytes # (Manual) 0.71 L (1.0-4.8) k/uL Metamyelocytes # (Man) (0) k/uL Nucleated RBCs 2 H (0-0) /100 WBC APTT 19.7 L (22.0-30.0) sec Carbon Dioxide 12 L (22-30) mmol/L BUN (7-17) mg/dL Creatinine (0.52-1.04) mg/dL Glucose 220 H (74-99) mg/dL POC Glucose (mg/dL) (70-110) mg/dL Plasma Lactic Acid Kilo (0.7-2.0) mmol/L Calcium (8.4-10.2) mg/dL AST (14-36) U/L Troponin I (0.000-0.034) ng/mL Crossmatch 08/21/24 08/21/24 08/21/24 Range/Units 13:45 13:45 13:50 WBC (3.8-10.6) k/uL RBC (3.80-5.40) m/uL Hgb (11.4-16.0) gm/dL Hct (34.0-46.0) % MCH (25.0-35.0) pg MCHC (31.0-37.0) g/dL RDW (11.5-15.5) % Neutrophils # (Manual) (1.3-7.7) k/uL Lymphocytes # (Manual) (1.0-4.8) k/uL Metamyelocytes # (Man) (0) k/uL Nucleated RBCs (0-0) /100 WBC APTT (22.0-30.0) sec Carbon Dioxide (22-30) mmol/L BUN (7-17) mg/dL Creatinine (0.52-1.04) mg/dL Glucose (74-99) mg/dL POC Glucose (mg/dL) (70-110) mg/dL Plasma Lactic Acid Kilo 3.7 H* (0.7-2.0) mmol/L Calcium (8.4-10.2) mg/dL AST (14-36) U/L Troponin I 0.165 H* (0.000-0.034) ng/mL Crossmatch See Detail 08/21/24 08/21/24 08/21/24 Range/Units 18:08 18:08 20:14 WBC (3.8-10.6) k/uL RBC (3.80-5.40) m/uL Hgb (11.4-16.0) gm/dL Hct (34.0-46.0) % MCH (25.0-35.0) pg MCHC (31.0-37.0) g/dL RDW (11.5-15.5) % Neutrophils # (Manual) (1.3-7.7) k/uL Lymphocytes # (Manual) (1.0-4.8) k/uL Metamyelocytes # (Man) (0) k/uL Nucleated RBCs (0-0) /100 WBC APTT (22.0-30.0) sec Carbon Dioxide (22-30) mmol/L BUN (7-17) mg/dL Creatinine (0.52-1.04) mg/dL Glucose (74-99) mg/dL POC Glucose (mg/dL) 279 H (70-110) mg/dL Plasma Lactic Acid Kilo 3.8 H* (0.7-2.0) mmol/L Calcium (8.4-10.2) mg/dL AST (14-36) U/L Troponin I 1.180 H* (0.000-0.034) ng/mL Crossmatch 08/21/24 08/22/24 08/22/24 Range/Units 20:32 06:09 06:09 WBC 13.9 H (3.8-10.6) k/uL RBC 3.70 L (3.80-5.40) m/uL Hgb 7.9 L (11.4-16.0) gm/dL Hct 30.7 L (34.0-46.0) % MCH 21.4 L (25.0-35.0) pg MCHC 25.8 L (31.0-37.0) g/dL RDW 19.3 H (11.5-15.5) % Neutrophils # (Manual) 12.09 H (1.3-7.7) k/uL Lymphocytes # (Manual) (1.0-4.8) k/uL Metamyelocytes # (Man) 0.14 H (0) k/uL Nucleated RBCs 1 H (0-0) /100 WBC APTT (22.0-30.0) sec Carbon Dioxide 15 L (22-30) mmol/L BUN 19 H (7-17) mg/dL Creatinine 1.06 H (0.52-1.04) mg/dL Glucose 228 H (74-99) mg/dL POC Glucose (mg/dL) (70-110) mg/dL Plasma Lactic Acid Kilo (0.7-2.0) mmol/L Calcium 8.1 L (8.4-10.2) mg/dL AST 49 H (14-36) U/L Troponin I 2.070 H* (0.000-0.034) ng/mL Crossmatch 08/22/24 Range/Units 06:12 WBC (3.8-10.6) k/uL RBC (3.80-5.40) m/uL Hgb (11.4-16.0) gm/dL Hct (34.0-46.0) % MCH (25.0-35.0) pg MCHC (31.0-37.0) g/dL RDW (11.5-15.5) % Neutrophils # (Manual) (1.3-7.7) k/uL Lymphocytes # (Manual) (1.0-4.8) k/uL Metamyelocytes # (Man) (0) k/uL Nucleated RBCs (0-0) /100 WBC APTT (22.0-30.0) sec Carbon Dioxide (22-30) mmol/L BUN (7-17) mg/dL Creatinine (0.52-1.04) mg/dL Glucose (74-99) mg/dL POC Glucose (mg/dL) 233 H (70-110) mg/dL Plasma Lactic Acid Kilo (0.7-2.0) mmol/L Calcium (8.4-10.2) mg/dL AST (14-36) U/L Troponin I (0.000-0.034) ng/mL Crossmatch Thrombosis Risk Factor Assmnt - Choose All That Apply Any of the Below Risk Factors Present?: Yes Each Factor Represents 1 point: Obesity (BMI >25) Other Risk Factors: Yes Each Risk Factor Represents 2 Points: Age 61-74 years Other congenital or acquired thrombophilia - If yes, enter type in comment: No Thrombosis Risk Factor Assessment Total Risk Factor Score: 3 Thrombosis Risk Factor Assessment Level: Moderate Risk
[2024-08-22 16:32] LABS: Glucose,Whole Blood 154 mg/dL (70-110)
[2024-08-22] MEDS: SODIUM CHLORIDE 0.9% 1,000 ML IV ONE (18:28)
[2024-08-22 20:13] LABS: Glucose,Whole Blood 97 mg/dL (70-110)
[2024-08-22] MEDS: INSULIN DETEMIR (LEVEMIR) 100 UNIT/ML SYR SQ SCH (20:37)
[2024-08-23] MEDS: ATORVASTATIN 80 MG TAB PO ONE (05:48)
[2024-08-23] MEDS: ASPIRIN 325 MG TAB PO ONE (05:48)
[2024-08-23] MEDS: SODIUM CHLORIDE 0.9% 1,000 ML in EMPTY BAG 1 BAG IV SCH (05:51)
[2024-08-23 06:10] LABS: Glucose,Whole Blood 135 mg/dL (70-110)
[2024-08-23 06:30] LABS: Anisocytosis Slight; Basophils % (A) 0 %; Eosinophils # (A) 0.1 k/uL (0-0.7); Eosinophils % (A) 1 %; HCT 31.2 % (34.0-46.0); HGB 8.2 gm/dL (11.4-16.0); Hypochromasia Marked; Lymphocytes # (A) 0.7 k/uL (1.0-4.8); Lymphocytes % (A) 8 %; MCH 21.7 pg (25.0-35.0); MCHC 26.2 g/dL (31.0-37.0); MCV 82.6 fL (80.0-100.0); Microcytosis Slight; Monocytes # (A) 0.4 k/uL (0-1.0); Monocytes % (A) 4 %; Neutrophils # (A) 7.1 k/uL (1.3-7.7); Neutrophils % (A) 86 %; Platelet Count 232 k/uL (150-450); Poikilocytosis Moderate; RBC 3.77 m/uL (3.80-5.40); RDW 19.6 % (11.5-15.5); WBC 8.3 k/uL (3.8-10.6)
[2024-08-23 06:34] LABS: ALT 20 U/L (4-34); AST 47 U/L (14-36); African American GFR (CKD) 49 (>60 ml/min/1.73 sqM); Albumin 3.4 g/dL (3.5-5.0); Alkaline Phosphatase 62 U/L (38-126); Anion Gap 9 mmol/L; Blood Urea Nitrogen 21 mg/dL (7-17); Calcium 8.1 mg/dL (8.4-10.2); Carbon Dioxide 25 mmol/L (22-30); Chloride 106 mmol/L (98-107); Glucose 119 mg/dL (74-99); Non-African American GFR(CKD) 42 (>60 ml/min/1.73 sqM); Potassium 3.9 mmol/L (3.5-5.1); Sodium 140 mmol/L (137-145); Total Bilirubin 0.7 mg/dL (0.2-1.3); Total Protein 6.6 g/dL (6.3-8.2)
[2024-08-23] MEDS ORDERED: HEPARIN SODIUM,PORCINE (1 ML) 2,500 UNIT in SODIUM CHLORIDE 0.9% 250 ML IRRIGATION PRN (07:00)
[2024-08-23] MEDS ORDERED: HEPARIN SODIUM,PORCINE 10,000 UNIT in SODIUM CHLORIDE 0.9% 1,000 ML IRRIGATION PRN (07:00)
[2024-08-23 07:14] LABS: Crenated RBC Present; RBC Fragments Present; Target Cells Present; Tear Drop Cells Present
[2024-08-23 09:06] LABS: % Iron Saturation 2.18 (12.00-45.00); Ferritin 23.5 ng/mL (10.0-291.0); Iron 10 UG/DL (50-170); Total Iron Binding Capacity 458 UG/DL (228-460)
--- NOTE | 2024-08-23 10:15 | P.PN ---
Subjective Progress Note Date: 08/23/24 HISTORY OF PRESENT ILLNESS: History of present illness; patient is a 69-year-old lady with past medical h istory significant for coronary artery disease, PE, diabetes type 1, hypertension, kidney stones, TIA presents the ER after being referred by her PCP for abnormal labs. Patient stated that she was seen at her PCP office a couple of days ago where she had her blood work drawn. Patient stated that she has been feeling weak for the last few days. Patient complaining of nausea and vomiting. Patient was complaining of shortness of breath that was present on rest as on exertion. Patient denies any blood in the stool. There is no complaint of any hematemesis. There was no complaint of any chest pain. Patient denies any orthopnea or PND. Patient continued to feel weak. Patient received a call from her PCP office stating that her hemoglobin was low at 6.8 and they wanted her to come to the hospital Initial lab work done in the ER showed WBC 7.9, hemoglobin 7.5, platelet count 271, sodium 139, potassium 4.2, BUN 14, creatinine 0.91, lactate 3.7, troponin 0.165 EKG done in the ER showed heart rate of 102, no ST segment elevation or depression seen, no T-wave inversions seen. Chest x-ray done in the ER showed no acute cardiopulmonary process/disease CT abdominal pelvis done showed no acute abnormality abdominal/pelvis. No evidence of small bowel obstruction. Cardiomegaly. Colonic diverticulosis without acute diverticulitis Patient admitted to internal medicine service 08/23: Patient is laying down in bed she appears to be somewhat short of breath, she continues to have significant generalized weakness, she does complain of no chest pain at this time, she appears to be somewhat short of breath, she is currently on oxygen 3 L nasal cannula, she continues to have swelling both lower extremities, she is complain of increased nausea but no vomiting, she has no energy to do anything, she was seen earlier by cardiology, she is scheduled to go for left heart catheterization today, she had an echocardiogram the result of which still pending at the time of dictation. REVIEW OF SYSTEMS: Constitutional: No documented fever, no chills, no night sweats. No weight change. positive for weakness, fatigue or lethargy. No daytime sleepiness. EENT: occasiona; headache. No blurred vision or double vision, no loss of vision. No loss of Hearing, no ringing in the ears, no dizziness. No nasal drainage or congestion. No epistaxis. No sore throat. Lungs: positive for shortness of breath, no cough, no sputum production. No wheezing. Reports dyspnea with activity. Cardiovascular: No chest pain, positive for lower extremity edema. positive for palpitations. No paroxysmal nocturnal dyspnea. No orthopnea. No lightheadedness or dizziness. No syncopal episodes. Abdominal: Reports abdominal pain. positive for nausea, vomiting. No diarrhea. No constipation. No bloody or tarry stools reports loss of appetite. Genitourinary: No dysuria, increased frequency, urgency. No urinary retention. Musculoskeletal: No myalgias. positive for muscle weakness, positive for gait dysfunction, no frequent falls. positive for back pain. No neck pain. Integumentary: No wounds, no lesions. No rash or pruritus. No unusual bruising. No change in hair or nails. Neurologic: No aphasia. No facial droop. No change in mentation. No head injury. No headache. No paralysis. No paresthesia. Psychiatric: positive for depression. No anxiety. No mood swings. Endocrine: positive for abnormal blood sugars. No weight change. PHYSICAL EXAMINATION: General: 69-year-old female who is laying down in bed in mild respiratory distress. HEENT: Head is atraumatic, normocephalic, pupils were equal round reactive to light and recommendation, extraocular muscle movement were intact, sclera nonicteric, conjunctivae were pale, mucous membranes of the mouth are somewhat dry. Neck: Supple, no JVP, normal carotid upstroke bilaterally, no lymphadenopathy. Chest: Decreased breath sounds at the bases, few rhonchi, no expiratory wheezes, no chest wall tenderness, no intercostal retractions. Heart: First heart sound is normal, second heart sounds normal there is systolic ejection murmur 2/6 located left sternal border, irregularly irregular due to atrial fibrillation. Abdomen: Soft, nontender, nondistended, positive bowel sounds. Extremities: There is +2 edema no calf tenderness DP +2 bilaterally. Neurologic examination: Patient is awake alert and oriented x3, cranial nerves II-12 appear grossly intact, muscle power were 4 out of 5 in upper extremities and 3 out of 5 in bilateral lower extremities, deep tendon reflexes normal bilaterally. ASSESSMENT AND PLAN: 1. Acute symptomatic anemia with the negative fecal occult blood, rule out GI loss. Patient was seen in consultation by general surgery, there is no plan for any endoscopy at this point in time, we will monitor the patient CBC very closely, transfuse for hemoglobin less than 7. 2. Acute blood loss anemia status post 1 unit of packed blood cell transfusion. Hemoglobin appears to be stable at this time, repeat the CBC in the next 24 hours. Patient will need to have an GI workup as an outpatient. 3. Non-ST elevation myocardial infarction. Patient has been maintained on current drip, aspirin 81 g once every day, atorvastatin 40 mg once every day, metoprolol 25 mg orally twice every day, patient is scheduled to go for left heart catheterization today, patient also did have an echocardiogram the result of which still pending at the time of dictation. 4. History of coronary artery disease status post PCI of the LAD. Continue treatment as in the previous Paragraph. Continue isosorbide mononitrate 30 mg orally once every day, continue aspirin 81 mg once every day, continue metoprolol 25 mg orally twice every day, continue atorvastatin 40 mg orally once every day. 5. Paroxysmal atrial fibrillation. Continue patient on metoprolol 25 mg orally twice every day currently on heparin drip, she will be back on Eliquis 2.5 mg twice every day after the heart catheterization. 6. Hypothyroidism. Continue patient on levothyroxine 112 mcg orally once every day monitor the patient thyroid function test. 7. Diabetes mellitus type 2. Discontinue insulin pump, continue patient on Lantus 28 units at bedtime along with Humalog 5 units before each meal along with a sliding scale insulin. 8. Spondylosis of the lumbar spine status post surgical intervention with significant chronic pain syndrome. Continue hydrocodone for pain control. Continue methocarbamol 500 mg orally every 8 hours as needed. 9. Diabetic polyneuropathy as well as chronic pain syndrome continue duloxetine 30 mg once every day monitor the patient symptoms very closely, continue patient also on pain management. 10. GERD with esophagitis. Continue patient on famotidine 20 mg orally once ev joaquin day, continue pantoprazole 40 mg orally twice every day, monitor the patient symptoms very closely. 11. Depression. Continue patient on duloxetine 30 mg at bedtime. 12. History of pulmonary embolism. Patient was on Eliquis, she was taken off due to the heart catheterization, currently on heparin drip. 13. Obesity with obstructive sleep apnea and obesity hypoventilation syndrome. Patient will follow-up with pulm medicine as an outpatient. 14. Chronic hypoxemic respiratory failure continue patient on oxygen 3 L nasal cannula, due to chronic systolic heart failure as well as obstructive sleep apnea and obesity hypoventilation syndrome. 15. DVT prophylaxis. Continue with heparin drip. 16. GI prophylaxis. Continue patient on famotidine 20 mg orally twice every day as well as pantoprazole 40 mg orally twice every day. 17. Patient is full code. 18. Prognosis is very guarded. Objective - Vital Signs Vital signs: Vital Signs Temp 97.6 F 08/23/24 08:00 Pulse 74 08/23/24 08:00 Resp 16 08/23/24 08:00 BP 144/62 08/23/24 08:00 Pulse Ox 98 08/23/24 08:00 FiO2 Intake & Output 08/22/24 08/23/24 08/23/24 18:59 06:59 18:59 Intake Total 180 Output Total 300 Balance 180 -300 Weight 130 kg Intake: Oral 180 Output: Urine 300 Other: Voiding Method Bedside Commode Bedside Commode External Catheter External Catheter # Voids 1 - Labs CBC & Chem 7: 08/23/24 05:52 08/23/24 05:52 Labs: Abnormal Lab Results - Last 24 Hours (Table) 08/22/24 08/22/24 08/23/24 Range/Units 11:15 16:30 05:52 RBC 3.77 L (3.80-5.40) m/uL Hgb 8.2 L (11.4-16.0) gm/dL Hct 31.2 L (34.0-46.0) % MCH 21.7 L (25.0-35.0) pg MCHC 26.2 L (31.0-37.0) g/dL RDW 19.6 H (11.5-15.5) % Lymphocytes # 0.7 L (1.0-4.8) k/uL BUN (7-17) mg/dL Creatinine (0.52-1.04) mg/dL Glucose (74-99) mg/dL POC Glucose (mg/dL) 230 H 154 H (70-110) mg/dL Calcium (8.4-10.2) mg/dL Iron (50-170) UG/DL % Saturation (12.00-45.00) AST (14-36) U/L Albumin (3.5-5.0) g/dL Vitamin B12 (200.0-944.0) pg/mL 08/23/24 08/23/24 Range/Units 05:52 06:09 RBC (3.80-5.40) m/uL Hgb (11.4-16.0) gm/dL Hct (34.0-46.0) % MCH (25.0-35.0) pg MCHC (31.0-37.0) g/dL RDW (11.5-15.5) % Lymphocytes # (1.0-4.8) k/uL BUN 21 H (7-17) mg/dL Creatinine 1.28 H (0.52-1.04) mg/dL Glucose 119 H (74-99) mg/dL POC Glucose (mg/dL) 135 H (70-110) mg/dL Calcium 8.1 L (8.4-10.2) mg/dL Iron 10 L (50-170) UG/DL % Saturation 2.18 L (12.00-45.00) AST 47 H (14-36) U/L Albumin 3.4 L (3.5-5.0) g/dL Vitamin B12 1001.0 H (200.0-944.0) pg/mL
[2024-08-23 11:21] LABS: Glucose,Whole Blood 140 mg/dL (70-110)
[2024-08-23] MEDS: fentaNYL (PF) 50 MCG/ML 2 ML AMP IVP ONE (12:28)
[2024-08-23] MEDS: MIDAZOLAM 2 MG/2 ML VIAL IVP ONE (12:28)
[2024-08-23] MEDS: NALOXONE 0.4 MG/ML 1 ML VIAL IVP ONE (12:33)
[2024-08-23] MEDS: PHENYLEPHRINE-0.9% NACL SYG 1,000 MCG/10 ML SYRINGE IVP ONE (12:34)
[2024-08-23 12:37] LABS: Glucose,Whole Blood 131 mg/dL (70-110)
[2024-08-23] MEDS: SODIUM CHLORIDE 0.9% 1,000 ML IV ONE (12:44)
[2024-08-23] MEDS: LIDOCAINE 1% INJ 10MG/ML (20 ML MDV) SQ ONE (12:46)
[2024-08-23] MEDS: IOPAMIDOL-370 100ML BTL INJ ONE (12:59)
--- NOTE | 2024-08-23 13:19 | CA ---
Transthoracic Echo Report Name: Cara Martinez Age: 69 Gender: F : 1955 Exam Date: 08/23/2024 08:04 Exam Location: [facility] Ht (in): 60 Wt (lb): 255 Ordering Physician: Gage Rodríguez MD Attending/Referring Phys: Pipe Line Walker Donna Layne RDCS Procedure CPT: Indications: SHORTNESS OF BREATH Cardiac Hx: CAD, CHF, diabetes, RI Technical Quality: Fair Contrast 1: Definity Total Dose (mL): 2 Contrast 2: Total Dose (mL): MEASUREMENTS (Male / Female) Normal Values 2D ECHO LV Diastolic Diameter PLAX 5.7 cm 4.2 - 5.9 / 3.9 - 5.3 cm LV Systolic Diameter PLAX 5.4 cm IVS Diastolic Thickness 1.0 cm 0.6 - 1.0 / 0.6 - 0.9 cm LVPW Diastolic Thickness 0.8 cm 0.6 - 1.0 / 0.6 - 0.9 cm LV Relative Wall Thickness 0.3 LVOT Diameter 2.1 cm LV Diastolic Volume MOD BP 170.5 cm??? 67 - 155 / 56 - 104 cm??? LV Systolic Volume MOD BP 152.2 cm??? 22 - 58 / 19 - 49 cm??? LV Ejection Fraction MOD BP 10.7 % >= 55 % LV Cardiac Index MOD BP 606.3 cm???/min???m??? LV Diastolic Volume MOD 4C 154.6 cm??? LV Systolic Volume MOD 4C 140.3 cm??? LV Ejection Fraction MOD 4C 9.3 % LV Cardiac Index MOD 4C 475.5 cm???/min???m??? LV Diastolic Length 4C 8.6 cm LV Systolic Length 4C 7.8 cm LV Diastolic Volume MOD 2C 181.9 cm??? LV Systolic Volume MOD 2C 159.9 cm??? LV Ejection Fraction MOD 2C 12.1 % LV Cardiac Index MOD 2C 728.8 cm???/min???m??? LV Diastolic Length 2C 8.2 cm LV Systolic Length 2C 8.0 cm LA Volume 57.7 cm??? 18 - 58 / 22 - 52 cm??? LA Volume Index 25.2 cm???/m??? 16 - 28 cm???/m??? DOPPLER AV Peak Velocity 150.0 cm/s AV Peak Gradient 9.0 mmHg AV Mean Velocity 98.3 cm/s AV Mean Gradient 4.4 mmHg AV Velocity Time Integral 29.4 cm LVOT Peak Velocity 106.8 cm/s LVOT Peak Gradient 4.6 mmHg LVOT Velocity Time Integral 20.9 cm LVOT Stroke Volume 75.1 cm??? LVOT Stroke Volume Index 36.3 ml/m??? LVOT Cardiac Index 2493.1 cm???/min???m??? AV Area Cont Eq vti 2.6 cm??? AV Area Cont Eq pk 2.6 cm??? MV Area PHT 4.4 cm??? Mitral E Point Velocity 77.3 cm/s Mitral A Point Velocity 66.3 cm/s Mitral E to A Ratio 1.2 MV Deceleration Time 174.3 ms PV Peak Velocity 62.9 cm/s PV Peak Gradient 1.6 mmHg FINDINGS Left Ventricle Left ventricular ejection fraction is estimated at 10-15 %. Mildly increased left ventricular diastolic diameter. Severely increased left ventricular diastolic volume. Severely increased left ventricular systolic volume. Severely decreased left ventricular ejection fraction. Severely reduced global left ventricular systolic function. Right Ventricle Right ventricular dilatation. Moderately reduced right ventricular global systolic function. Unable to estimate the right ventricular systolic pressure. Right Atrium Right atrial dilatation. Left Atrium Mildly increased left atrial volume. Mitral Valve Mitral valve thickened. No evidence for mitral valve prolapse. No mitral stenosis. Trace mitral regurgitation. Aortic Valve Trileaflet aortic valve. Aortic valve sclerosis. No aortic valve stenosis or regurgitation. Tricuspid Valve Structurally normal tricuspid valve. No tricuspid stenosis. Trace tricuspid regurgitation. Pulmonic Valve Structurally normal pulmonic valve. No pulmonic stenosis. Mild pulmonic regurgitation. Pericardium No pericardial effusion. Aorta Normal size aortic root and proximal ascending aorta. CONCLUSIONS Significant enlargement of left ventricle with a global decrease in contractility. Estimate ejection fraction of 15%. Right ventricle is also enlarged with a moderate decrease in contractility. Minimal mitral and tricuspid regurgitation. No pericardial effusion Previewed by: Dr. Francis Mcclendon MD (Electronically Signed) Final Date: 23 August 2024 13:18
--- NOTE | 2024-08-23 13:19 | P.CARDCATH ---
Description of Procedure: PROCEDURES PERFORMED: Left heart catheterization, bilateral coronary angiography, ultrasound guided arterial access INDICATION: NSTEMI CONSENT:The risks, benefits and alternative therapies for the above-mentioned procedure and for both sedation/analgesia as well as necessary blood product administration, if indicated, as they pertain to this patient were discussed with the patient. The patient has indicated understanding and acceptance of the risks and procedures discussed. PROCEDURE: After the risks, benefits and alternatives of the above mentioned procedure explained in detail with the patient, informed consent was obtained. Patient was taken to the catheterization lab and prepped and draped in usual fashion. Ultrasound guidance was used to assess for arterial access. Patient was given 1mg versed and 25mcg Fentanyl and quickly became somnolent and unresponsive despite adequate oxygenation. Therefore Narcan was given and Neosyneprhine with BP eventually 80/50 and then started to improve and patient became more alert. 1% lidocaine was used to anesthetize the left femoral artery. A 6-Prydeinig sheath was placed in the left femoral artery using modified Seldinger technique and ultrasound guidance. Left coronary angiography was performed with a 6-Prydeinig JL 4.0 catheter and right coronary angiography was performed with a 6-Prydeinig FR4 catheter in various views. A 6-Prydeinig FR4 catheter was inserted into the left ventricle and pressure measurements were obtained. The right radial sheath was removed and a TR band was placed with hemostasis achieved. The patient tolerated the procedure however had hypotension with sedation. Patient was transported back to the post catheterization holding area in stable condition. Conscious Sedation: Patient was monitored under the direct supervision of myself for conscious sedation using Versed and fentanyl for a total duration of 16 minutes HEMODYNAMICS: Ao: 118/71 LV: 122/15, LVEDP 23 SELECTIVE CORONARY ARTERIOGRAPHY: LEFT MAIN: The left main is a large caliber vessel which bifurcates into the LAD and circumflex. There is mild diffuse 20-30% left main stenosis. LEFT ANTERIOR DESCENDING CORONARY ARTERY: LAD is a moderate caliber vessel which wraps around to the apex. There is a patent proximal to mid LAD stent with 10- 20% instent stenosis. Diagonal 1 is small to moderate caliber with proximal 30- 40% stenosis. There is a mid LAD 40-50% stenosis unchanged from prior films. There are left to right collaterals. LEFT CIRCUMFLEX CORONARY ARTERY: Left circumflex is a moderate caliber vessel with mild 20-30% stenosis. There is a OM1 branch which has a 100% stenosis and then the AV groove circumflex with mild luminal irregularities. RIGHT CORONARY ARTERY: The right coronary artery is a small caliber vessel which gives off a PDA and PLV branch and is the dominant vessel. There is 99% proximal subtotal stenosis. FINAL IMPRESSION: 1. CAD as described above with 20-30% left main, 40-50% mid LAD and 99% proximal RCA stenosis with left to right collaterals 2. Elevated left sided filling pressures 3. Hypotensive/ unresponsive episode with minimal sedation, improved PLAN: 1. Aggressive risk factor modification per most recent ACC/AHA guidelines. 2. Given anemia with recent blood transfusion, CKD, small difusely disease RCA with left to right collaterals as well as patient not tolerating diagnostic procedure well, recommend medical therapy for RCA disease. If has more angina may consider attempted intervention however appears 2.0mm vessel at its largest.
--- NOTE | 2024-08-23 14:06 | P.PN ---
Subjective Progress Note Date: 08/23/24 HISTORY OF PRESENT ILLNESS: This is a 69-year-old female with a past medical history significant for co ngestive heart failure, atrial flutter, coronary artery disease with previous stenting, chronic hypoxic respiratory failure on home oxygen, hypertension, hyperlipidemia, hypothyroidism, right ulnar pseudoaneurysm with repair, and diabetes. Patient follows in the office with Dr. Elkins. We have been asked to see the patient in consultation for elevated troponins. Patient examined at the bedside. Patient states starting Friday night she has been having nausea with episodes of vomiting. She states that she had blood work drawn at her PCP office and she was called and instructed to come to the emergency room due to a low hemoglobin. Apparently hemoglobin was 6.8. However hemoglobin on admission here was 7.5. She did receive 1 unit RBCs. Hemoglobin this morning 7.9. Patient denies any signs or symptoms of GI bleeding. She denies any chest pain or shortness of breath. She has been resumed on her Eliquis and her aspirin. She has been evaluated by general surgery with no plans for endoscopy at this time. DIAGNOSTICS: - EKG reveals sinus tachycardia with no signs of acute ischemia - Chest xray negative for acute process - Laboratory data: WBC 13.9. Hemoglobin 7.9. Platelet count 263. Sodium 141. Potassium 4.3. BUN 19. Creatinine 1.06. Troponin 0.165. 1.180. 2.070. - Current home cardiac medications include Eliquis 5 mg twice a day, Lipitor 40 mg at night, Lasix 20 mg daily as needed, losartan 100 mg daily, metoprolol to tartrate 25 mg twice a day. - Most recent echocardiogram obtained in September 2022 revealed ejection fraction 45 to 50% with anterior apical and anterior septal hypokinesis. No pericardial effusion. - Cardiac catheterization history: 09/2022 revealing mid LAD 50% stenosis status post PCI of the mid LAD with drug-eluting stent. 08/23 Patient seen and examined. Patient is scheduled for cardiac catheterization today with Dr. Elkins. Patient denies having any chest pain no shortness of breath. She states prior to hospitalization, she had vomiting for 5 days without diarrhea. She denies having any blood in her stool or vomit. Echocardi ogram is pending. PHYSICAL EXAM: VITAL SIGNS: Reviewed. GENERAL: Well-developed in no acute distress. HEENT: Head is normocephalic. Pupils are equal, round. Sclerae anicteric. Mucous membranes of the mouth are moist. Neck supple. No JVD or thyromegaly LUNGS: Respirations even and unlabored. Lungs essentially clear to auscultation bilaterally. HEART: Regular rate and rhythm. S1 and S2 heard. ABDOMEN: Soft. Nondistended. Nontender. EXTREMITIES: Normal range of motion. No clubbing or cyanosis. Peripheral pulses intact. No lower extremity edema NEUROLOGIC: Awake and alert. Oriented x 3. ASSESSMENT: Nausea and vomiting, resolved Acute on chronic anemia without signs of GI bleeding Non-STEMI Coronary artery disease with previous stenting of the mid LAD, 2022 Paroxysmal atrial flutter Chronic heart failure with mildly reduced EF, 45 to 50%, currently euvolemic Hypertension Hyperlipidemia Hypothyroidism Diabetes History of right ulnar pseudoaneurysm with repair History of DVT PLAN: Obtain 2D echo to assess cardiac structure and function Resume home cardiac medications Continue to monitor hemoglobin Hold Eliquis for pending heart catheterization. No IV heparin at this time per Jimy Gomez N.p.o. Patient to undergo cardiac catheterization today with Dr. Elkins Further recommendations pending patient course Nurse practitioner note has been reviewed by physician. Signing provider agrees with the documented findings, assessment, and plan of care documented by BARKEEPER as a scribe. Objective - Vital Signs Vital signs: Vital Signs Temp 97.6 F 08/23/24 08:00 Pulse 74 08/23/24 08:00 Resp 16 08/23/24 08:00 BP 144/62 08/23/24 08:00 Pulse Ox 98 08/23/24 08:00 FiO2 Intake & Output 08/22/24 08/23/24 08/23/24 18:59 06:59 18:59 Intake Total 180 Output Total 300 Balance 180 -300 Weight 130 kg Intake: Oral 180 Output: Urine 300 Other: Voiding Method Bedside Commode Bedside Commode External Catheter External Catheter # Voids 1 - Labs CBC & Chem 7: 08/23/24 05:52 08/23/24 05:52 Labs: Abnormal Lab Results - Last 24 Hours (Table) 08/22/24 08/22/24 08/23/24 Range/Units 11:15 16:30 05:52 RBC 3.77 L (3.80-5.40) m/uL Hgb 8.2 L (11.4-16.0) gm/dL Hct 31.2 L (34.0-46.0) % MCH 21.7 L (25.0-35.0) pg MCHC 26.2 L (31.0-37.0) g/dL RDW 19.6 H (11.5-15.5) % Lymphocytes # 0.7 L (1.0-4.8) k/uL BUN (7-17) mg/dL Creatinine (0.52-1.04) mg/dL Glucose (74-99) mg/dL POC Glucose (mg/dL) 230 H 154 H (70-110) mg/dL Calcium (8.4-10.2) mg/dL Iron (50-170) UG/DL % Saturation (12.00-45.00) AST (14-36) U/L Albumin (3.5-5.0) g/dL Vitamin B12 (200.0-944.0) pg/mL 08/23/24 08/23/24 Range/Units 05:52 06:09 RBC (3.80-5.40) m/uL Hgb (11.4-16.0) gm/dL Hct (34.0-46.0) % MCH (25.0-35.0) pg MCHC (31.0-37.0) g/dL RDW (11.5-15.5) % Lymphocytes # (1.0-4.8) k/uL BUN 21 H (7-17) mg/dL Creatinine 1.28 H (0.52-1.04) mg/dL Glucose 119 H (74-99) mg/dL POC Glucose (mg/dL) 135 H (70-110) mg/dL Calcium 8.1 L (8.4-10.2) mg/dL Iron 10 L (50-170) UG/DL % Saturation 2.18 L (12.00-45.00) AST 47 H (14-36) U/L Albumin 3.4 L (3.5-5.0) g/dL Vitamin B12 1001.0 H (200.0-944.0) pg/mL
--- NOTE | 2024-08-23 14:12 | P.PN ---
Subjective Progress Note Date: 08/23/24 SURGICAL PROGRESS NOTE CHIEF COMPLAINT: Anemia HISTORY OF PRESENT ILLNESS: Surgical service following regards to patient's anemia. She denies any blood in her stools. Denies any abdominal pain. Denies any nausea or vomiting. Patient scheduled for heart catheterization today with cardiology service. She is on IV heparin. Hemoglobin stable at 8.2. Vital stable. CT scan abdomen pelvis showed no evidence of small bowel obstruction. Did report a moderate size hiatal hernia PHYSICAL EXAM: VITAL SIGNS: Reviewed. GENERAL: Well-developed in no acute distress. ABDOMEN: Soft. Nondistended. Nontender. NEUROLOGIC: Alert and oriented. Cranial nerves II through XII grossly intact. ASSESSMENT: 1. Anemia and nausea/vomiting 2. Moderate size hiatal hernia PLAN: -No plans for endoscopy at this time -Continue to monitor hemoglobin -Continue cardiac workup -Continue PPI -Recommend hematology consult Physician [employer] note has been reviewed by physician. Signing provider agrees with the documented findings, assessment, and plan of care. Attestation Patient seen and examined at bedside. Seen after cardiac catheterization. Recommend hematology evaluation of anemia. Currently no gross blood in her stool. No plan for endoscopy at this time. Ivonne Manning DO Objective - Vital Signs Vital signs: Vital Signs Temp 97.6 F 08/23/24 08:00 Pulse 74 08/23/24 08:00 Resp 16 08/23/24 12:30 BP 144/62 08/23/24 08:00 Pulse Ox 98 08/23/24 08:00 FiO2 Intake & Output 08/22/24 08/23/24 08/23/24 18:59 06:59 18:59 Intake Total 180 500 Output Total 300 Balance 180 -300 500 Weight 130 kg Intake: IV 500 Oral 180 Output: Urine 300 Other: Voiding Method Bedside Commode Bedside Commode External Catheter External Catheter # Voids 1 - Labs CBC & Chem 7: 08/23/24 05:52 08/23/24 05:52 Labs: Abnormal Lab Results - Last 24 Hours (Table) 08/22/24 08/23/24 08/23/24 Range/Units 16:30 05:52 05:52 RBC 3.77 L (3.80-5.40) m/uL Hgb 8.2 L (11.4-16.0) gm/dL Hct 31.2 L (34.0-46.0) % MCH 21.7 L (25.0-35.0) pg MCHC 26.2 L (31.0-37.0) g/dL RDW 19.6 H (11.5-15.5) % Lymphocytes # 0.7 L (1.0-4.8) k/uL BUN 21 H (7-17) mg/dL Creatinine 1.28 H (0.52-1.04) mg/dL Glucose 119 H (74-99) mg/dL POC Glucose (mg/dL) 154 H (70-110) mg/dL Calcium 8.1 L (8.4-10.2) mg/dL Iron 10 L (50-170) UG/DL % Saturation 2.18 L (12.00-45.00) AST 47 H (14-36) U/L Albumin 3.4 L (3.5-5.0) g/dL Vitamin B12 1001.0 H (200.0-944.0) pg/mL 08/23/24 08/23/24 08/23/24 Range/Units 06:09 11:18 12:36 RBC (3.80-5.40) m/uL Hgb (11.4-16.0) gm/dL Hct (34.0-46.0) % MCH (25.0-35.0) pg MCHC (31.0-37.0) g/dL RDW (11.5-15.5) % Lymphocytes # (1.0-4.8) k/uL BUN (7-17) mg/dL Creatinine (0.52-1.04) mg/dL Glucose (74-99) mg/dL POC Glucose (mg/dL) 135 H 140 H 131 H (70-110) mg/dL Calcium (8.4-10.2) mg/dL Iron (50-170) UG/DL % Saturation (12.00-45.00) AST (14-36) U/L Albumin (3.5-5.0) g/dL Vitamin B12 (200.0-944.0) pg/mL
[2024-08-23 16:26] LABS: Glucose,Whole Blood 149 mg/dL (70-110)
[2024-08-23 20:02] LABS: Glucose,Whole Blood 135 mg/dL (70-110)
[2024-08-24 06:19] LABS: Glucose,Whole Blood 96 mg/dL (70-110)
[2024-08-24 07:21] LABS: Anisocytosis Slight; HCT 29.8 % (34.0-46.0); HGB 7.8 gm/dL (11.4-16.0); Hypochromasia Marked; MCH 21.5 pg (25.0-35.0); MCHC 26.2 g/dL (31.0-37.0); MCV 82.1 fL (80.0-100.0); Mean Platelet Volume 7.8; Microcytosis Slight; Platelet Count 199 k/uL (150-450); Poikilocytosis Moderate; RBC 3.63 m/uL (3.80-5.40); RDW 19.5 % (11.5-15.5)
[2024-08-24 07:41] LABS: ALT 20 U/L (4-34); AST 41 U/L (14-36); African American GFR (CKD) 61 (>60 ml/min/1.73 sqM); Albumin 3.5 g/dL (3.5-5.0); Alkaline Phosphatase 59 U/L (38-126); Anion Gap 8 mmol/L; Blood Urea Nitrogen 21 mg/dL (7-17); Carbon Dioxide 26 mmol/L (22-30); Chloride 107 mmol/L (98-107); Glucose 85 mg/dL (74-99); Non-African American GFR(CKD) 53 (>60 ml/min/1.73 sqM); Potassium 3.7 mmol/L (3.5-5.1); Sodium 141 mmol/L (137-145); Total Bilirubin 0.7 mg/dL (0.2-1.3); Total Protein 6.7 g/dL (6.3-8.2)
[2024-08-24 08:44] LABS: Eosinophils # (M) 0.08 k/uL (0-0.7); Lymphocytes # (M) 1.67 k/uL (1.0-4.8); Neutrophils # (M) 5.62 k/uL (1.3-7.7); Neutrophils % (M) 74 %; Nucleated Red Blood Cells 5 /100 WBC (0-0); Target Cells Present; Total Cells Counted 200; WBC 7.6 k/uL (3.8-10.6)
[2024-08-24 10:42] LABS: Glucose,Whole Blood 109 mg/dL (70-110)
[2024-08-24] MEDS ORDERED: HYDROmorphone 0.5 MG/0.5 ML SYRINGE IVP PRN (10:52)
--- NOTE | 2024-08-24 14:20 | P.PN ---
Subjective Progress Note Date: 08/24/24 HISTORY OF PRESENT ILLNESS: This is a 69-year-old female with a past medical history significant for co ngestive heart failure, atrial flutter, coronary artery disease with previous stenting, chronic hypoxic respiratory failure on home oxygen, hypertension, hyperlipidemia, hypothyroidism, right ulnar pseudoaneurysm with repair, and diabetes. Patient follows in the office with Dr. Elkins. We have been asked to see the patient in consultation for elevated troponins. Patient examined at the bedside. Patient states starting Friday night she has been having nausea with episodes of vomiting. She states that she had blood work drawn at her PCP office and she was called and instructed to come to the emergency room due to a low hemoglobin. Apparently hemoglobin was 6.8. However hemoglobin on admission here was 7.5. She did receive 1 unit RBCs. Hemoglobin this morning 7.9. Patient denies any signs or symptoms of GI bleeding. She denies any chest pain or shortness of breath. She has been resumed on her Eliquis and her aspirin. She has been evaluated by general surgery with no plans for endoscopy at this time. DIAGNOSTICS: - EKG reveals sinus tachycardia with no signs of acute ischemia - Chest xray negative for acute process - Laboratory data: WBC 13.9. Hemoglobin 7.9. Platelet count 263. Sodium 141. Potassium 4.3. BUN 19. Creatinine 1.06. Troponin 0.165. 1.180. 2.070. - Current home cardiac medications include Eliquis 5 mg twice a day, Lipitor 40 mg at night, Lasix 20 mg daily as needed, losartan 100 mg daily, metoprolol to tartrate 25 mg twice a day. - Most recent echocardiogram obtained in September 2022 revealed ejection fraction 45 to 50% with anterior apical and anterior septal hypokinesis. No pericardial effusion. - Cardiac catheterization history: 09/2022 revealing mid LAD 50% stenosis status post PCI of the mid LAD with drug-eluting stent. 08/23 Patient seen and examined. Patient is scheduled for cardiac catheterization today with Dr. Elkins. Patient denies having any chest pain no shortness of breath. She states prior to hospitalization, she had vomiting for 5 days without diarrhea. She denies having any blood in her stool or vomit. Echocardi ogram is pending. 08/24 Yesterday, patient underwent left heart catheterization with Dr. Elkins which revealed CAD at 20 to 30% left main, 40 to 50% mid LAD and 99% proximal RCA stenosis with left to right collaterals. Elevated left-sided filling pressures. Patient had a hypotensive unresponsive episode with minimal sedation and improved. Discussed results of the cardiac catheterization with the patient and recommended high-dose statin as well as aspirin, Lopressor and losartan. No further cardiac workup is planned at this time. Blood pressure 144/82, heart rate 76, pulse ox 100% 2L n/c. Echocardiogram reveals EF 15% with significant enlargement of the left ventricle. Right ventricle is also enlarged with moderate decrease in contractility. Minimal mitral and tricuspid regurgitation. No pericardial effusion. PHYSICAL EXAM: VITAL SIGNS: Reviewed. GENERAL: Well-developed in no acute distress. HEENT: Head is normocephalic. Pupils are equal, round. Sclerae anicteric. Neck supple. No JVD or thyromegaly LUNGS: Respirations even and unlabored. Lungs essentially clear to auscultation bilaterally. HEART: Regular rate and rhythm. S1 and S2 heard. ABDOMEN: Soft. Nondistended. Nontender. EXTREMITIES: Normal range of motion. No clubbing or cyanosis. Peripheral pulses intact. No lower extremity edema NEUROLOGIC: Awake and alert. Oriented x 3. ASSESSMENT: Nausea and vomiting, resolved Acute on chronic anemia without signs of GI bleeding Non-STEMI Cardiomyopathy with EF of 15%, possible nonischemic Coronary artery disease with previous stenting of the mid LAD, 2022 Paroxysmal atrial flutter Chronic heart failure with mildly reduced EF, 45 to 50%, currently euvolemic Hypertension Hyperlipidemia Hypothyroidism Diabetes History of right ulnar pseudoaneurysm with repair History of DVT PLAN: Continue home cardiac medications Continue to monitor hemoglobin Resume patient on Eliquis if okay with general surgery Further recommendations pending patient course Nurse practitioner note has been reviewed by physician. Signing provider agrees with the documented findings, assessment, and plan of care documented by [employer] INFORMATION as a scribe. Objective - Vital Signs Vital signs: Vital Signs Temp 98.0 F 08/24/24 04:08 Pulse 68 08/24/24 04:08 Resp 17 08/24/24 04:08 BP 118/58 08/24/24 04:08 Pulse Ox 100 08/24/24 04:08 FiO2 Intake & Output 08/23/24 08/24/24 08/24/24 18:59 06:59 18:59 Intake Total 500 Output Total 450 Balance 500 -450 Weight 129.5 kg Intake: IV 500 Output: Urine 450 Other: Voiding Method Bedside Commode External Catheter - Labs CBC & Chem 7: 08/26/24 05:24 08/26/24 05:24 Labs: Abnormal Lab Results - Last 24 Hours (Table) 08/23/24 08/23/24 08/23/24 Range/Units 05:52 11:18 12:36 RBC (3.80-5.40) m/uL Hgb (11.4-16.0) gm/dL Hct (34.0-46.0) % MCH (25.0-35.0) pg MCHC (31.0-37.0) g/dL RDW (11.5-15.5) % Nucleated RBCs (0-0) /100 WBC BUN (7-17) mg/dL Creatinine (0.52-1.04) mg/dL POC Glucose (mg/dL) 140 H 131 H (70-110) mg/dL Calcium (8.4-10.2) mg/dL Iron 10 L (50-170) UG/DL % Saturation 2.18 L (12.00-45.00) AST (14-36) U/L Vitamin B12 1001.0 H (200.0-944.0) pg/mL 08/23/24 08/23/24 08/24/24 Range/Units 16:24 20:00 06:32 RBC 3.63 L (3.80-5.40) m/uL Hgb 7.8 L (11.4-16.0) gm/dL Hct 29.8 L (34.0-46.0) % MCH 21.5 L (25.0-35.0) pg MCHC 26.2 L (31.0-37.0) g/dL RDW 19.5 H (11.5-15.5) % Nucleated RBCs 5 H (0-0) /100 WBC BUN (7-17) mg/dL Creatinine (0.52-1.04) mg/dL POC Glucose (mg/dL) 149 H 135 H (70-110) mg/dL Calcium (8.4-10.2) mg/dL Iron (50-170) UG/DL % Saturation (12.00-45.00) AST (14-36) U/L Vitamin B12 (200.0-944.0) pg/mL 08/24/24 Range/Units 06:32 RBC (3.80-5.40) m/uL Hgb (11.4-16.0) gm/dL Hct (34.0-46.0) % MCH (25.0-35.0) pg MCHC (31.0-37.0) g/dL RDW (11.5-15.5) % Nucleated RBCs (0-0) /100 WBC BUN 21 H (7-17) mg/dL Creatinine 1.07 H (0.52-1.04) mg/dL POC Glucose (mg/dL) (70-110) mg/dL Calcium 8.0 L (8.4-10.2) mg/dL Iron (50-170) UG/DL % Saturation (12.00-45.00) AST 41 H (14-36) U/L Vitamin B12 (200.0-944.0) pg/mL
--- NOTE | 2024-08-24 14:37 | P.PN ---
Subjective Progress Note Date: 08/24/24 HISTORY OF PRESENT ILLNESS: History of present illness; patient is a 69-year-old lady with past medical h istory significant for coronary artery disease, PE, diabetes type 1, hypertension, kidney stones, TIA presents the ER after being referred by her PCP for abnormal labs. Patient stated that she was seen at her PCP office a couple of days ago where she had her blood work drawn. Patient stated that she has been feeling weak for the last few days. Patient complaining of nausea and vomiting. Patient was complaining of shortness of breath that was present on rest as on exertion. Patient denies any blood in the stool. There is no complaint of any hematemesis. There was no complaint of any chest pain. Patient denies any orthopnea or PND. Patient continued to feel weak. Patient received a call from her PCP office stating that her hemoglobin was low at 6.8 and they wanted her to come to the hospital Initial lab work done in the ER showed WBC 7.9, hemoglobin 7.5, platelet count 271, sodium 139, potassium 4.2, BUN 14, creatinine 0.91, lactate 3.7, troponin 0.165 EKG done in the ER showed heart rate of 102, no ST segment elevation or depression seen, no T-wave inversions seen. Chest x-ray done in the ER showed no acute cardiopulmonary process/disease CT abdominal pelvis done showed no acute abnormality abdominal/pelvis. No evidence of small bowel obstruction. Cardiomegaly. Colonic diverticulosis without acute diverticulitis Patient admitted to internal medicine service 08/23: Patient is laying down in bed she appears to be somewhat short of breath, she continues to have significant generalized weakness, she does complain of no chest pain at this time, she appears to be somewhat short of breath, she is currently on oxygen 3 L nasal cannula, she continues to have swelling both lower extremities, she is complain of increased nausea but no vomiting, she has no energy to do anything, she was seen earlier by cardiology, she is scheduled to go for left heart catheterization today, she had an echocardiogram the result of which still pending at the time of dictation. 08/24: Patient underwent left heart catheterization yesterday by Dr. Elkins that showed evidence of 20 to 30% stenosis of the left main artery, 40 to 50% stenosis of the LAD and about 99% stenosis of the proximal RCA, however there were collaterals from the left to right, patient did have an hypotensive episode in the Sales [employer], recovered from that completely, patient has no chest pain at this time has no shortness of breath, it was elected to treat the patient medically as long as the patient is not having any unstable angina at this time, we will continue current treatment plan, she continues to have significant pain in the lumbar spine, increase her [place] to every 6 hours as needed along with m ethocarbamol 3 times every day, will follow-up with the patient very closely physical therapy evaluation likely will patient would benefit from subacute rehabilitation at [facility]. REVIEW OF SYSTEMS: Constitutional: No documented fever, no chills, no night sweats. No weight change. positive for weakness, fatigue or lethargy. No daytime sleepiness. EENT: occasiona; headache. No blurred vision or double vision, no loss of vision. No loss of Hearing, no ringing in the ears, no dizziness. No nasal drainage or congestion. No epistaxis. No sore throat. Lungs: positive for shortness of breath, no cough, no sputum production. No wheezing. Reports dyspnea with activity. Cardiovascular: No chest pain, positive for lower extremity edema. positive for palpitations. No paroxysmal nocturnal dyspnea. No orthopnea. No lightheadedness or dizziness. No syncopal episodes. Abdominal: Reports abdominal pain. positive for nausea, vomiting. No diarrhea. No constipation. No bloody or tarry stools reports loss of appetite. Genitourinary: No dysuria, increased frequency, urgency. No urinary retention. Musculoskeletal: No myalgias. positive for muscle weakness, positive for gait dysfunction, no frequent falls. positive for back pain. No neck pain. Integumentary: No wounds, no lesions. No rash or pruritus. No unusual bruising. No change in hair or nails. Neurologic: No aphasia. No facial droop. No change in mentation. No head injury. No headache. No paralysis. No paresthesia. Psychiatric: positive for depression. No anxiety. No mood swings. Endocrine: positive for abnormal blood sugars. No weight change. PHYSICAL EXAMINATION: General: 69-year-old female who is laying down in bed in mild respiratory distress. HEENT: Head is atraumatic, normocephalic, pupils were equal round reactive to light and recommendation, extraocular muscle movement were intact, sclera nonicteric, conjunctivae were pale, mucous membranes of the mouth are somewhat dry. Neck: Supple, no JVP, normal carotid upstroke bilaterally, no lymphadenopathy. Chest: Decreased breath sounds at the bases, few rhonchi, no expiratory wheezes, no chest wall tenderness, no intercostal retractions. Heart: First heart sound is normal, second heart sounds normal there is systolic ejection murmur 2/6 located left sternal border, irregularly irregular due to atrial fibrillation. Abdomen: Soft, nontender, nondistended, positive bowel sounds. Extremities: There is +2 edema no calf tenderness DP +2 bilaterally. Neurologic examination: Patient is awake alert and oriented x3, cranial nerves II-12 appear grossly intact, muscle power were 4 out of 5 in upper extremities and 3 out of 5 in bilateral lower extremities, deep tendon reflexes normal bilaterally. ASSESSMENT AND PLAN: 1. Acute symptomatic anemia with the negative fecal occult blood, rule out GI loss. Patient was seen in consultation by general surgery, there is no plan for any endoscopy at this point in time, we will monitor the patient CBC very closely, transfuse for hemoglobin less than 7. 2. Acute blood loss anemia status post 1 unit of packed blood cell transfusion. Hemoglobin appears to be stable at this time, repeat the CBC in the next 24 hours. Patient will need to have an GI workup as an outpatient. 3. Non-ST elevation myocardial infarction. Patient has been maintained on current drip, aspirin 81 mg once every day, atorvastatin 40 mg once every day, metoprolol 25 mg orally twice every day, patient did have left heart catheterization that showed evidence of 20 to 30% stenosis of the left main, 4050% stenosis of the LAD, and 99% of the RCA with collaterals from left to right, no need for intervention at this point in time. 4. History of coronary artery disease status post PCI of the LAD. Continue treatment as in the previous Paragraph. Continue isosorbide mononitrate 30 mg orally once every day, continue aspirin 81 mg once every day, continue metoprolol 25 mg orally twice every day, continue atorvastatin 40 mg orally once every day. 5. Paroxysmal atrial fibrillation. Continue patient on metoprolol 25 mg orally twice every day, continue Eliquis 5 mg orally twice every day. 6. Hypothyroidism. Continue patient on levothyroxine 112 mcg orally once every day monitor the patient thyroid function test. 7. Diabetes mellitus type 2. Discontinue insulin pump, continue patient on Lantus 28 units at bedtime along with Humalog 5 units before each meal along with a sliding scale insulin. 8. Spondylosis of the lumbar spine status post surgical intervention with significant chronic pain syndrome. Continue hydrocodone for pain control. Continue methocarbamol 500 mg orally every 8 hours as needed. 9. Diabetic polyneuropathy as well as chronic pain syndrome continue duloxetine 30 mg once every day monitor the patient symptoms very closely, continue patient also on pain management. 10. GERD with esophagitis. Continue patient on famotidine 20 mg orally once every day, continue pantoprazole 40 mg orally twice every day, monitor the patient symptoms very closely. 11. Depression. Continue patient on duloxetine 30 mg at bedtime. 12. History of pulmonary embolism. Patient was on Eliquis, she was taken off due to the heart catheterization, currently on heparin drip. 13. Obesity with obstructive sleep apnea and obesity hypoventilation syndrome. Patient will follow-up with pulm medicine as an outpatient. 14. Chronic hypoxemic respiratory failure continue patient on oxygen 3 L nasal cannula, due to chronic systolic heart failure as well as obstructive sleep apnea and obesity hypoventilation syndrome. 15. DVT prophylaxis. Continue with Eliquis 5 mg orally twice every day. 16. GI prophylaxis. Continue patient on famotidine 20 mg orally twice every day as well as pantoprazole 40 mg orally twice every day. 17. Patient is full code. 18. Prognosis is very guarded. 19. Medical debility. Physical therapy evaluation likely to go to [facility] Objective - Vital Signs Vital signs: Vital Signs Temp 97.5 F L 08/24/24 08:00 Pulse 76 08/24/24 08:00 Resp 18 08/24/24 08:00 BP 144/82 08/24/24 08:00 Pulse Ox 100 08/24/24 08:00 FiO2 Intake & Output 08/23/24 08/24/24 08/24/24 18:59 06:59 18:59 Intake Total 500 Output Total 450 Balance 500 -450 Weight 129.5 kg Intake: IV 500 Output: Urine 450 Other: Voiding Method Bedside Commode Bedside Commode External Catheter External Catheter - Labs CBC & Chem 7: 08/24/24 06:32 08/24/24 06:32 Labs: Abnormal Lab Results - Last 24 Hours (Table) 08/23/24 08/23/24 08/23/24 Range/Units 11:18 12:36 16:24 RBC (3.80-5.40) m/uL Hgb (11.4-16.0) gm/dL Hct (34.0-46.0) % MCH (25.0-35.0) pg MCHC (31.0-37.0) g/dL RDW (11.5-15.5) % Nucleated RBCs (0-0) /100 WBC BUN (7-17) mg/dL Creatinine (0.52-1.04) mg/dL POC Glucose (mg/dL) 140 H 131 H 149 H (70-110) mg/dL Calcium (8.4-10.2) mg/dL AST (14-36) U/L 08/23/24 08/24/24 08/24/24 Range/Units 20:00 06:32 06:32 RBC 3.63 L (3.80-5.40) m/uL Hgb 7.8 L (11.4-16.0) gm/dL Hct 29.8 L (34.0-46.0) % MCH 21.5 L (25.0-35.0) pg MCHC 26.2 L (31.0-37.0) g/dL RDW 19.5 H (11.5-15.5) % Nucleated RBCs 5 H (0-0) /100 WBC BUN 21 H (7-17) mg/dL Creatinine 1.07 H (0.52-1.04) mg/dL POC Glucose (mg/dL) 135 H (70-110) mg/dL Calcium 8.0 L (8.4-10.2) mg/dL AST 41 H (14-36) U/L
--- NOTE | 2024-08-24 15:01 | P.PN ---
Subjective Progress Note Date: 08/24/24 SURGICAL PROGRESS NOTE CHIEF COMPLAINT: Anemia HISTORY OF PRESENT ILLNESS: Surgical service following regards to patient's anemia. She denies any blood in her stools. Denies any abdominal pain. Patient reports an episode of vomiting last night. She does report vomiting prior to admission. Patient had heart cath completed yesterday cardiology recommending medical management. Hemoglobin is down from 8.2-7.8. Stool for occult blood negative. CT scan abdomen pelvis showed no evidence of small b owel obstruction. Did report a moderate size hiatal hernia PHYSICAL EXAM: VITAL SIGNS: Reviewed. GENERAL: Well-developed in no acute distress. ABDOMEN: Soft. Nondistended. Nontender. NEUROLOGIC: Alert and oriented. Cranial nerves II through XII grossly intact. ASSESSMENT: 1. Anemia and nausea/vomiting 2. Moderate size hiatal hernia PLAN: -No plans for endoscopy at this time -Continue to monitor hemoglobin -Continue cardiac workup -Continue PPI -Recommend hematology consult -Okay to resume Eliquis from surgical standpoint -Continue antiemetics as needed Physician Lead Consultant note has been reviewed by physician. Signing provider agrees with the documented findings, assessment, and plan of care. Attestation Patient seen and examined at bedside. Continues to deny any bloody bowel movements. Stool occult was notably negative. Anemia still present with hemoglobin of 7.8. Patient did just have cardiac catheterization. No evidence of GI bleeding. She is having some difficulty with increasing appetite. Recommended Ensure clears at this time as she prefers nonmilk based products. No plan for any surgical intervention. If continued GI concern, consider outpatient GI follow-up. Ivonne Manning, Objective - Vital Signs Vital signs: Vital Signs Temp 97.5 F L 08/24/24 12:00 Pulse 62 08/24/24 14:00 Resp 18 08/24/24 14:00 BP 103/54 08/24/24 12:00 Pulse Ox 98 08/24/24 12:00 FiO2 Intake & Output 08/23/24 08/24/24 08/24/24 18:59 06:59 18:59 Intake Total 500 Output Total 450 Balance 500 -450 Weight 129.5 kg Intake: IV 500 Output: Urine 450 Other: Voiding Method Bedside Commode Bedside Commode External Catheter External Catheter - Labs CBC & Chem 7: 08/24/24 06:32 08/24/24 06:32 Labs: Abnormal Lab Results - Last 24 Hours (Table) 08/23/24 08/23/24 08/24/24 Range/Units 16:24 20:00 06:32 RBC 3.63 L (3.80-5.40) m/uL Hgb 7.8 L (11.4-16.0) gm/dL Hct 29.8 L (34.0-46.0) % MCH 21.5 L (25.0-35.0) pg MCHC 26.2 L (31.0-37.0) g/dL RDW 19.5 H (11.5-15.5) % Nucleated RBCs 5 H (0-0) /100 WBC BUN (7-17) mg/dL Creatinine (0.52-1.04) mg/dL POC Glucose (mg/dL) 149 H 135 H (70-110) mg/dL Calcium (8.4-10.2) mg/dL AST (14-36) U/L 08/24/24 Range/Units 06:32 RBC (3.80-5.40) m/uL Hgb (11.4-16.0) gm/dL Hct (34.0-46.0) % MCH (25.0-35.0) pg MCHC (31.0-37.0) g/dL RDW (11.5-15.5) % Nucleated RBCs (0-0) /100 WBC BUN 21 H (7-17) mg/dL Creatinine 1.07 H (0.52-1.04) mg/dL POC Glucose (mg/dL) (70-110) mg/dL Calcium 8.0 L (8.4-10.2) mg/dL AST 41 H (14-36) U/L
[2024-08-24 16:23] LABS: Glucose,Whole Blood 140 mg/dL (70-110)
[2024-08-24] MEDS: METOCLOPRAMIDE 5 MG/ML 2 ML VIAL IVP SCH (20:23)
[2024-08-24] MEDS: ATORVASTATIN 80 MG TAB PO SCH (20:24)
[2024-08-24] MEDS: APIXABAN 5 MG TAB PO SCH (20:24)
[2024-08-24 20:31] LABS: Glucose,Whole Blood 90 mg/dL (70-110)
[2024-08-24] MEDS: ACETAMINOPHEN TAB 500 MG TAB PO PRN (23:28)
[2024-08-25 06:03] LABS: Glucose,Whole Blood 147 mg/dL (70-110)
[2024-08-25] MEDS: SODIUM FERRIC GLUCONAT-SUCROSE 125 MG in SODIUM CHLORIDE 0.9% 100 ML IVPB SCH (10:36)
[2024-08-25 11:57] LABS: Glucose,Whole Blood 136 mg/dL (70-110)
--- NOTE | 2024-08-25 12:57 | P.PN ---
Subjective Progress Note Date: 08/25/24 HISTORY OF PRESENT ILLNESS: This is a 69-year-old female with a past medical history significant for co ngestive heart failure, atrial flutter, coronary artery disease with previous stenting, chronic hypoxic respiratory failure on home oxygen, hypertension, hyperlipidemia, hypothyroidism, right ulnar pseudoaneurysm with repair, and diabetes. Patient follows in the office with Dr. Elkins. We have been asked to see the patient in consultation for elevated troponins. Patient examined at the bedside. Patient states starting Friday night she has been having nausea with episodes of vomiting. She states that she had blood work drawn at her PCP office and she was called and instructed to come to the emergency room due to a low hemoglobin. Apparently hemoglobin was 6.8. However hemoglobin on admission here was 7.5. She did receive 1 unit RBCs. Hemoglobin this morning 7.9. Patient denies any signs or symptoms of GI bleeding. She denies any chest pain or shortness of breath. She has been resumed on her Eliquis and her aspirin. She has been evaluated by general surgery with no plans for endoscopy at this time. DIAGNOSTICS: - EKG reveals sinus tachycardia with no signs of acute ischemia - Chest xray negative for acute process - Laboratory data: WBC 13.9. Hemoglobin 7.9. Platelet count 263. Sodium 141. Potassium 4.3. BUN 19. Creatinine 1.06. Troponin 0.165. 1.180. 2.070. - Current home cardiac medications include Eliquis 5 mg twice a day, Lipitor 40 mg at night, Lasix 20 mg daily as needed, losartan 100 mg daily, metoprolol to tartrate 25 mg twice a day. - Most recent echocardiogram obtained in September 2022 revealed ejection fraction 45 to 50% with anterior apical and anterior septal hypokinesis. No pericardial effusion. - Cardiac catheterization history: 09/2022 revealing mid LAD 50% stenosis status post PCI of the mid LAD with drug-eluting stent. 08/23 Patient seen and examined. Patient is scheduled for cardiac catheterization today with Dr. Elkins. Patient denies having any chest pain no shortness of breath. She states prior to hospitalization, she had vomiting for 5 days without diarrhea. She denies having any blood in her stool or vomit. Echocardi ogram is pending. 08/24 Yesterday, patient underwent left heart catheterization with Dr. Elkins which revealed CAD at 20 to 30% left main, 40 to 50% mid LAD and 99% proximal RCA stenosis with left to right collaterals. Elevated left-sided filling pressures. Patient had a hypotensive unresponsive episode with minimal sedation and improved. Discussed results of the cardiac catheterization with the patient and recommended high-dose statin as well as aspirin, Lopressor and losartan. No further cardiac workup is planned at this time. Blood pressure 144/82, heart rate 76, pulse ox 100% 2L n/c. Echocardiogram reveals EF 15% with significant enlargement of the left ventricle. Right ventricle is also enlarged with moderate decrease in contractility. Minimal mitral and tricuspid regurgitation. No pericardial effusion. 08/25 Blood pressure 122/73, heart rate 74, pulse ox 100% on 2 L nasal cannula. Due to low EF, we will increase beta-jamey to 50 mg twice daily. Oncology consult is in place regarding anemia. PHYSICAL EXAM: VITAL SIGNS: Reviewed. GENERAL: Well-developed in no acute distress. HEENT: Head is normocephalic. Pupils are equal, round. Sclerae anicteric. Neck supple. No JVD or thyromegaly LUNGS: Respirations even and unlabored. Lungs essentially clear to auscultation bilaterally. HEART: Regular rate and rhythm. S1 and S2 heard. ABDOMEN: Soft. Nondistended. Nontender. EXTREMITIES: Normal range of motion. No clubbing or cyanosis. Peripheral pulses intact. No lower extremity edema NEUROLOGIC: Awake and alert. Oriented x 3. ASSESSMENT: Nausea and vomiting, resolved Acute on chronic anemia without signs of GI bleeding Non-STEMI Cardiomyopathy with EF of 15%, possible ischemic Coronary artery disease with previous stenting of the mid LAD, 2022 Paroxysmal atrial flutter Chronic heart failure with mildly reduced EF, 45 to 50%, currently euvolemic Hypertension Hyperlipidemia Hypothyroidism Diabetes History of right ulnar pseudoaneurysm with repair History of DVT PLAN: Continue cardiac medications: Eliquis 5 mg twice daily, aspirin 81 mg daily, atorvastatin 80 mg daily, Imdur 30 mg daily, losartan 100 mg daily Increase Lopressor to 50 mg twice daily No further cardiac workup at this time. Cardiology will sign off this case and follow on an as-needed basis. Please reconsult for any new concerns. Patient may follow-up in the office in one to [address] Elkins. Nurse practitioner note has been reviewed by physician. Signing provider agrees with the documented findings, assessment, and plan of care documented by EXCELLENCE SPECIALIST as a scribe. Objective - Vital Signs Vital signs: Vital Signs Temp 98.3 F 08/25/24 11:14 Pulse 74 08/25/24 11:14 Resp 16 08/25/24 11:14 BP 122/73 08/25/24 11:14 Pulse Ox 100 08/25/24 11:14 FiO2 Intake & Output 08/24/24 08/25/24 08/25/24 18:59 06:59 18:59 Weight 127 kg Other: Voiding Method Bedside Commode Bedside Commode Diaper External Catheter # Voids 3 1 # Bowel Movements 0 - Labs CBC & Chem 7: 08/24/24 06:32 08/24/24 06:32 Labs: Abnormal Lab Results - Last 24 Hours (Table) 08/24/24 08/25/24 08/25/24 Range/Units 16:17 06:02 11:56 POC Glucose (mg/dL) 140 H 147 H 136 H (70-110) mg/dL
--- NOTE | 2024-08-25 13:40 | P.PN ---
Subjective Progress Note Date: 08/25/24 SURGICAL PROGRESS NOTE CHIEF COMPLAINT: Anemia HISTORY OF PRESENT ILLNESS: Surgical service following regards to patient's anemia. She denies any active bleeding. No evidence of GI bleeding. Stool for occult blood is negative. Patient currently denies any nausea or vomiting. Afebrile. Vital stable. Hemoglobin 7.8 as of yesterday. no new labs for today. Patient seen by hematology and they have added IV iron. Patient status post heart catheterization during this admission with medical management. Patient has been restarted on Eliquis. PHYSICAL EXAM: VITAL SIGNS: Reviewed. GENERAL: Well-developed in no acute distress. ABDOMEN: Soft. Nondistended. Nontender. ASSESSMENT: 1. Anemia and nausea/vomiting 2. Moderate size hiatal hernia PLAN: -No plans for endoscopy at this time -Patient being evaluated by hematology -If continued GI concern, consider outpatient GI follow-up -Continue to monitor hemoglobin -Continue cardiac workup -Continue PPI Physician Hydraulic Billet Maker note has been reviewed by physician. Signing provider agrees with the documented findings, assessment, and plan of care. Attestation Patient seen and examined at bedside with spouse at bedside. Currently no e vidence of GI bleeding. She states that she has minimal appetite. Attempted to try Ensure clears as patient has aversion to milk based products. She states that she did not want to try this. No plan for endoscopy at this time. Continue medical management. Ivonne Manning, Objective - Vital Signs Vital signs: Vital Signs Temp 98.3 F 08/25/24 11:14 Pulse 74 08/25/24 11:14 Resp 16 08/25/24 11:14 BP 122/73 08/25/24 11:14 Pulse Ox 100 08/25/24 11:14 FiO2 Intake & Output 08/24/24 08/25/24 08/25/24 18:59 06:59 18:59 Weight 127 kg Other: Voiding Method Bedside Commode Bedside Commode Diaper External Catheter # Voids 3 1 1 # Bowel Movements 0 - Labs CBC & Chem 7: 08/25/24 15:23 08/25/24 15:23 Labs: Abnormal Lab Results - Last 24 Hours (Table) 08/24/24 08/25/24 08/25/24 Range/Units 16:17 06:02 11:56 POC Glucose (mg/dL) 140 H 147 H 136 H (70-110) mg/dL
[2024-08-25 16:30] LABS: ALT 142 U/L (4-34); African American GFR (CKD) 55 (>60 ml/min/1.73 sqM); Albumin 3.3 g/dL (3.5-5.0); Anion Gap 8 mmol/L; Blood Urea Nitrogen 23 mg/dL (7-17); Calcium 7.9 mg/dL (8.4-10.2); Carbon Dioxide 26 mmol/L (22-30); Chloride 107 mmol/L (98-107); Glucose 139 mg/dL (74-99); Non-African American GFR(CKD) 48 (>60 ml/min/1.73 sqM); Sodium 141 mmol/L (137-145); Total Protein 6.4 g/dL (6.3-8.2)
[2024-08-25 16:36] LABS: Glucose,Whole Blood 157 mg/dL (70-110)
[2024-08-25 17:02] LABS: Anisocytosis Slight; HCT 29.5 % (34.0-46.0); HGB 7.9 gm/dL (11.4-16.0); Hypochromasia Marked; MCH 21.4 pg (25.0-35.0); MCHC 26.6 g/dL (31.0-37.0); MCV 80.6 fL (80.0-100.0); Mean Platelet Volume 7.4; Microcytosis Slight; Platelet Count 173 k/uL (150-450); Poikilocytosis Slight; RBC 3.67 m/uL (3.80-5.40); RDW 19.3 % (11.5-15.5)
[2024-08-25 17:04] LABS: AST 476 U/L (14-36); Alkaline Phosphatase 68 U/L (38-126); Potassium 4.4 mmol/L (3.5-5.1)
--- NOTE | 2024-08-25 17:51 | P.CONS ---
History of Present Illness - Reason for Consult Consult date: 08/25/24 anemia Requesting physician: Lili Lancaster - Chief Complaint weakness, n/v - History of Present Illness Patient is a 69-year-old female with a significant history of diabetes, hypertension and pulmonary embolism anticoagulated with Eliquis. Consult placed for anemia. Patient presented to emergency room for weakness and nausea vomiting. Since admission patient reports improvement in symptoms over the last 24 hours. She reports no unintentional weight loss, or night sweats. Denies episodes of acute bleeding, rectal bleeding and melena. Denies history of bowel/GI surgery, IBD/celiac disease. Denies excessive use of NSAIDs and has only been taking Tylenol. Last colonoscopy was approximately 2 to 3 years ago which per pt showed no evidence of acute bleeding. Upon admit CT abdomen and pelvis showing no acute abnormality in the abdomen pelvis, specifically no evidence of small bowel obstruction. With moderate sized hiatal hernia with partial intrathoracic stomach. Today, WBC 7.6, hemoglobin 7.8, MCV 82.1, MCH 21.4. Platelets 199,000. Creatinine 1.07, GFR 53. Bilirubin 0.7. Nutritional studies showing iron saturation 2.18%, ferritin 23.5. Vitamin B12 1001, folate 702.Upon trending labs, anemia noted since 09/2022, with hgb in the 7-8 range. Review of Systems 10 point ROS is negative except as stated in the HPI Past Medical History Past Medical History: Diabetes Mellitus, Hypertension, Myocardial Infarction (RI) Additional Past Medical History / Comment(s): hypothyroid, kidney stone, GLUCOMA, hx of PE Last Myocardial Infarction Date:: 2022 History of Any Multi-Drug Resistant Organisms: None Reported Past Surgical History: Back Surgery, Hysterectomy Additional Past Surgical History / Comment(s): kidney stones removed and stent CATARACTS REMOVED AND STENT PUT IN FOR GLUCOMA. 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, heart stent 2021 Past Anesthesia/Blood Transfusion Reactions: Previous Problems w/ Anesthesia, Po stoperative Nausea & Vomiting (PONV) Additional Past Anesthesia/Blood Transfusion Reaction / Comm: no blood trasnfusion reaction after 1 unit of PRBC Past Psychological History: No Psychological Hx Reported Smoking Status: Never smoker Past Alcohol Use History: None Reported Past Drug Use History: None Reported - Past Family History Mother Family Medical History: No Reported History Father Additional Family Medical History / Comment(s): Heart history Medications and Allergies Home Medications Medication Instructions Recorded Confirmed Type Metoprolol Tartrate [Lopressor] 25 mg PO BID 01/31/14 08/21/24 History Levothyroxine Sodium [Synthroid] 112 mcg PO DAILY 05/16/19 08/21/24 History Losartan Potassium 100 mg PO DAILY 05/16/19 08/21/24 History Famotidine [Pepcid] 20 mg PO BID 04/26/20 08/21/24 History Acetaminophen Tab [Tylenol Tab] 1,000 mg PO Q6HR PRN 08/21/24 08/21/24 History Apixaban [Eliquis] 5 mg PO BID 08/21/24 08/21/24 History Atorvastatin [Lipitor] 40 mg PO HS 08/21/24 08/21/24 History DULoxetine HCL [Cymbalta] 30 mg PO HS 08/21/24 08/21/24 History Empagliflozin [Jardiance] 25 mg PO DAILY 08/21/24 08/21/24 History Furosemide [Lasix] 20 mg PO DAILY PRN 08/21/24 08/21/24 History Insulin Aspart (For Pump) [NovoLOG 0.01 unit SQ-PUMP CONTINUOUS 08/21/24 08/21/24 History (For Pump)] methocarbamoL [Robaxin] 500 mg PO BID 08/21/24 08/21/24 History Allergies Allergy/AdvReac Type Severity Reaction Status Date / Time No Known Allergies Allergy Verified 08/21/24 17:58 Physical Exam Vitals: Vital Signs Temp Pulse Pulse Resp BP Pulse Ox 08/25/24 11:14 98.3 F 74 16 122/73 100 08/25/24 09:30 72 16 08/25/24 07:21 98.1 F 75 18 116/74 100 08/25/24 05:04 96/62 08/25/24 04:41 76 16 82/53 92 L 08/25/24 01:37 18 08/24/24 23:30 69 116/64 99 08/24/24 21:00 18 08/24/24 20:12 97.7 F 79 18 135/67 98 08/24/24 16:00 98.1 F 74 18 120/64 99 Intake and Output 08/24/24 08/25/24 08/25/24 22:59 06:59 14:59 Other: Voiding Method Bedside Commode Bedside Commode Diaper # Voids 3 1 1 # Bowel Movements 0 Weight 127 kg - Constitutional General appearance: no acute distress, obese - EENT Eyes: anicteric sclerae, EOMI ENT: hearing grossly normal - Neck Neck: no lymphadenopathy - Respiratory Respiratory: bilateral: CTA - Cardiovascular Rhythm: regular - Gastrointestinal General gastrointestinal: soft, no tenderness - Integumentary Integumentary: no cyanotic, no jaundiced - Psychiatric Psychiatric: A&O x's 3 Results CBC & Chem 7: 08/25/24 15:23 08/25/24 15:23 Labs: Abnormal Lab Results - Last 24 Hours (Table) 08/24/24 08/25/24 08/25/24 Range/Units 16:17 06:02 11:56 POC Glucose (mg/dL) 140 H 147 H 136 H (70-110) mg/dL CT scan - abdomen: report reviewed CT scan - pelvis: report reviewed Assessment and Plan (1) Anemia Current Visit: Yes Status: Acute Priority: Medium Code(s): D64.9 - ANEMIA, UNSPECIFIED SNOMED Code(s): 696463856 Plan: Normocytic hypochromic anemia: Presented to emergency room for weakness and nausea vomiting, decreased appetite. She reports no unintentional weight loss, or night sweats. Denies episodes of acute bleeding, rectal bleeding and melena. Denies history of b owel/GI surgery, IBD/celiac disease. Denies excessive use of NSAIDs. Last colonoscopy was approximately 2 to 3 years ago which per pt showed no evidence of acute bleeding. Pt has hx of pulmonary embolism anticoagulated with Eliquis. Upon trending labs, anemia noted since 09/2022, with hgb in the 7-8 range. -Upon admit CT abdomen and pelvis showing no acute abnormality in the abdomen pelvis, specifically no evidence of small bowel obstruction. With moderate sized hiatal hernia with partial intrathoracic stomach. -Today, WBC 7.6, hemoglobin 7.8, MCV 82.1, MCH. Platelets 199,000. Creatinine 1.07, GFR 53. Bilirubin 0.7. Nutritional studies showing iron saturation 2.18%, ferritin 23.5. Vitamin B12 1001, folate 702 -Parenteral iron x 4 ordered -General surgery consulted, no plan for endoscopic evaluation at this time -Anemia could be secondary to CKD, hiatal hernia, however GI bleed/AVMs remains within differential -Will schedule f/u outpt, and give additional IV iron as needed -Recommend outpt GI f/u for endoscopic evaluation -Continue to monitor CBC, transfuse for hgb <7 or if symptomatic Doctor attests: I performed a history and physical examination of this patient, developed impression and plan of care. Discussed with dictator. I agree with dictators note, documented as a scribe.
[2024-08-25 18:08] LABS: Band Neutrophils % 33 %; Eosinophils # (M) 0.08 k/uL (0-0.7); Neutrophils % (M) 51 %; Nucleated Red Blood Cells 2 /100 WBC (0-0); Total Cells Counted 200
[2024-08-25 20:28] LABS: Glucose,Whole Blood 145 mg/dL (70-110)
[2024-08-25] MEDS: METOPROLOL TARTRATE 50 MG TAB PO SCH (21:08)
[2024-08-26 06:21] LABS: Anisocytosis Slight; HCT 30.6 % (34.0-46.0); HGB 8.2 gm/dL (11.4-16.0); Hypochromasia Marked; MCHC 26.6 g/dL (31.0-37.0); MCV 82.5 fL (80.0-100.0); Mean Platelet Volume 8.3; Microcytosis Slight; Platelet Count 208 k/uL (150-450); Poikilocytosis Slight; RBC 3.71 m/uL (3.80-5.40); RDW 19.7 % (11.5-15.5)
[2024-08-26 06:27] LABS: Glucose,Whole Blood 121 mg/dL (70-110)
[2024-08-26 06:48] LABS: ALT 167 U/L (4-34); AST 427 U/L (14-36); African American GFR (CKD) 57 (>60 ml/min/1.73 sqM); Albumin 3.2 g/dL (3.5-5.0); Alkaline Phosphatase 71 U/L (38-126); Anion Gap 7 mmol/L; Blood Urea Nitrogen 20 mg/dL (7-17); Carbon Dioxide 29 mmol/L (22-30); Chloride 105 mmol/L (98-107); Glucose 109 mg/dL (74-99); Non-African American GFR(CKD) 50 (>60 ml/min/1.73 sqM); Potassium 3.7 mmol/L (3.5-5.1); Sodium 141 mmol/L (137-145); Total Protein 6.3 g/dL (6.3-8.2)
[2024-08-26 06:55] LABS: Band Neutrophils % 1 %; Lymphocytes # (M) 0.62 k/uL (1.0-4.8); Monocytes # (M) 0.69 k/uL (0-1.0); Neutrophils % (M) 80 %; Nucleated Red Blood Cells 2 /100 WBC (0-0); Total Cells Counted 200; WBC 6.9 k/uL (3.8-10.6)
[2024-08-26 06:56] LABS: Anisocytosis (M) Present; Ovalocytes Present; Poikilocytosis (M) Present; Polychromasia Present
--- NOTE | 2024-08-26 10:41 | P.PN ---
Subjective Progress Note Date: 08/25/24 HISTORY OF PRESENT ILLNESS: History of present illness; patient is a 69-year-old lady with past medical h istory significant for coronary artery disease, PE, diabetes type 1, hypertension, kidney stones, TIA presents the ER after being referred by her PCP for abnormal labs. Patient stated that she was seen at her PCP office a couple of days ago where she had her blood work drawn. Patient stated that she has been feeling weak for the last few days. Patient complaining of nausea and vomiting. Patient was complaining of shortness of breath that was present on rest as on exertion. Patient denies any blood in the stool. There is no complaint of any hematemesis. There was no complaint of any chest pain. Patient denies any orthopnea or PND. Patient continued to feel weak. Patient received a call from her PCP office stating that her hemoglobin was low at 6.8 and they wanted her to come to the hospital Initial lab work done in the ER showed WBC 7.9, hemoglobin 7.5, platelet count 271, sodium 139, potassium 4.2, BUN 14, creatinine 0.91, lactate 3.7, troponin 0.165 EKG done in the ER showed heart rate of 102, no ST segment elevation or depression seen, no T-wave inversions seen. Chest x-ray done in the ER showed no acute cardiopulmonary process/disease CT abdominal pelvis done showed no acute abnormality abdominal/pelvis. No evidence of small bowel obstruction. Cardiomegaly. Colonic diverticulosis without acute diverticulitis Patient admitted to internal medicine service 08/23: Patient is laying down in bed she appears to be somewhat short of breath, she continues to have significant generalized weakness, she does complain of no chest pain at this time, she appears to be somewhat short of breath, she is currently on oxygen 3 L nasal cannula, she continues to have swelling both lower extremities, she is complain of increased nausea but no vomiting, she has no energy to do anything, she was seen earlier by cardiology, she is scheduled to go for left heart catheterization today, she had an echocardiogram the result of which still pending at the time of dictation. 08/24: Patient underwent left heart catheterization yesterday by Dr. 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 08/25: Patient appears quite drowsy today, she not able to tolerate her pain management very well, she is stated that she will use Tylenol only along with a muscle relaxer in the form of Robaxin, we will continue with that, discontinue Xanax, discontinue [place], follow-up with the patient very closely, patient was seen and evaluated by physical therapy patient does not want to go to subacute rehabilitation, will see if the patient can qualify to go for home with home PT. REVIEW OF SYSTEMS: Constitutional: No documented fever, no chills, no night sweats. No weight change. positive for weakness, fatigue or lethargy. No daytime sleepiness. EENT: occasiona; headache. No blurred vision or double vision, no loss of vision. No loss of Hearing, no ringing in the ears, no dizziness. No nasal drainage or congestion. No epistaxis. No sore throat. Lungs: positive for shortness of breath, no cough, no sputum production. No wheezing. Reports dyspnea with activity. Cardiovascular: No chest pain, positive for lower extremity edema. positive for palpitations. No paroxysmal nocturnal dyspnea. No orthopnea. No lightheadedness or dizziness. No syncopal episodes. Abdominal: Reports abdominal pain. positive for nausea, vomiting. No diarrhea. No constipation. No bloody or tarry stools reports loss of appetite. Genitourinary: No dysuria, increased frequency, urgency. No urinary retention. Musculoskeletal: No myalgias. positive for muscle weakness, positive for gait dysfunction, no frequent falls. positive for back pain. No neck pain. Integumentary: No wounds, no lesions. No rash or pruritus. No unusual bruising. No change in hair or nails. Neurologic: No aphasia. No facial droop. No change in mentation. No head injury. No headache. No paralysis. No paresthesia. Psychiatric: positive for depression. No anxiety. No mood swings. Endocrine: positive for abnormal blood sugars. No weight change. PHYSICAL EXAMINATION: General: 69-year-old female who is laying down in bed in mild respiratory distress. HEENT: Head is atraumatic, normocephalic, pupils were equal round reactive to light and recommendation, extraocular muscle movement were intact, sclera nonicteric, conjunctivae were pale, mucous membranes of the mouth are somewhat dry. Neck: Supple, no JVP, normal carotid upstroke bilaterally, no lymphadenopathy. Chest: Decreased breath sounds at the bases, few rhonchi, no expiratory wheezes, no chest wall tenderness, no intercostal retractions. Heart: First heart sound is normal, second heart sounds normal there is systolic ejection murmur 2/6 located left sternal border, irregularly irregular due to atrial fibrillation. Abdomen: Soft, nontender, nondistended, positive bowel sounds. Extremities: There is +2 edema no calf tenderness DP +2 bilaterally. Neurologic examination: Patient is awake alert and oriented x3, cranial nerves II-12 appear grossly intact, muscle power were 4 out of 5 in upper extremities and 3 out of 5 in bilateral lower extremities, deep tendon reflexes normal bilaterally. ASSESSMENT AND PLAN: 1. Acute symptomatic anemia with the negative fecal occult blood, rule out GI loss. Patient was seen in consultation by general surgery, also she will be seen in consultation by hematology there is no plan for any endoscopy at this point in time, we will monitor the patient CBC very closely, transfuse for hemoglobin less than 7. 2. Acute blood loss anemia status post 1 unit of packed blood cell transfusion. Hemoglobin appears to be stable at this time, repeat the CBC in the next 24 hours. Patient will need to have an GI workup as an outpatient. 3. Non-ST elevation myocardial infarction. Patient has been maintained on current drip, aspirin 81 mg once every day, atorvastatin 40 mg once every day, metoprolol 25 mg orally twice every day, patient did have left heart catheterization that showed evidence of 20 to 30% stenosis of the left main, 4050% stenosis of the LAD, and 99% of the RCA with collaterals from left to right, no need for intervention at this point in time. 4. History of coronary artery disease status post PCI of the LAD. Continue treatment as in the previous Paragraph. Continue isosorbide mononitrate 30 mg orally once every day, continue aspirin 81 mg once every day, continue metoprolol 25 mg orally twice every day, continue atorvastatin 40 mg orally once every day. 5. Paroxysmal atrial fibrillation. Continue patient on metoprolol 25 mg orally twice every day, continue Eliquis 5 mg orally twice every day. 6. Hypothyroidism. Continue patient on levothyroxine 112 mcg orally once every day monitor the patient thyroid function test. 7. Diabetes mellitus type 2. Discontinue insulin pump, continue patient on Lantus 28 units at bedtime along with Humalog 5 units before each meal along with a sliding scale insulin. 8. Spondylosis of the lumbar spine status post surgical intervention with significant chronic pain syndrome. Continue hydrocodone for pain control. Continue methocarbamol 500 mg orally every 8 hours as needed. 9. Diabetic polyneuropathy as well as chronic pain syndrome continue duloxetine 30 mg once every day monitor the patient symptoms very closely, continue patient also on pain management. 10. GERD with esophagitis. Continue patient on famotidine 20 mg orally once every day, continue pantoprazole 40 mg orally twice every day, monitor the patie nt symptoms very closely. 11. Depression. Continue patient on duloxetine 30 mg at bedtime. 12. History of pulmonary embolism. Patient was on Eliquis, she was taken off due to the heart catheterization, currently on heparin drip. 13. Obesity with obstructive sleep apnea and obesity hypoventilation syndrome. Patient will follow-up with pulm medicine as an outpatient. 14. Chronic hypoxemic respiratory failure continue patient on oxygen 3 L nasal cannula, due to chronic systolic heart failure as well as obstructive sleep apnea and obesity hypoventilation syndrome. 15. DVT prophylaxis. Continue with Eliquis 5 mg orally twice every day. 16. GI prophylaxis. Continue patient on famotidine 20 mg orally twice every day as well as pantoprazole 40 mg orally twice every day. 17. Patient is full code. 18. Prognosis is very guarded. 19. Medical debility. Patient will be seen in by physical therapy, but she elected to go home instead of subacute rehabilitation, will see if she is a candidate for home PT. Objective - Vital Signs Vital signs: Vital Signs Temp 98.3 F 08/25/24 11:14 Pulse 74 08/25/24 11:14 Resp 16 08/25/24 11:14 BP 122/73 08/25/24 11:14 Pulse Ox 100 08/25/24 11:14 FiO2 Intake & Output 08/24/24 08/25/24 08/25/24 18:59 06:59 18:59 Weight 127 kg Other: Voiding Method Bedside Commode Bedside Commode Diaper External Catheter # Voids 3 1 1 # Bowel Movements 0 - Labs CBC & Chem 7: 08/26/24 05:24 08/26/24 05:24 Labs: Abnormal Lab Results - Last 24 Hours (Table) 08/24/24 08/25/24 08/25/24 Range/Units 16:17 06:02 11:56 POC Glucose (mg/dL) 140 H 147 H 136 H (70-110) mg/dL
--- NOTE | 2024-08-26 10:42 | P.PN ---
Subjective Progress Note Date: 08/26/24 HISTORY OF PRESENT ILLNESS: History of present illness; patient is a 69-year-old lady with past medical h istory significant for coronary artery disease, PE, diabetes type 1, hypertension, kidney stones, TIA presents the ER after being referred by her PCP for abnormal labs. Patient stated that she was seen at her PCP office a couple of days ago where she had her blood work drawn. Patient stated that she has been feeling weak for the last few days. Patient complaining of nausea and vomiting. Patient was complaining of shortness of breath that was present on rest as on exertion. Patient denies any blood in the stool. There is no complaint of any hematemesis. There was no complaint of any chest pain. Patient denies any orthopnea or PND. Patient continued to feel weak. Patient received a call from her PCP office stating that her hemoglobin was low at 6.8 and they wanted her to come to the hospital Initial lab work done in the ER showed WBC 7.9, hemoglobin 7.5, platelet count 271, sodium 139, potassium 4.2, BUN 14, creatinine 0.91, lactate 3.7, troponin 0.165 EKG done in the ER showed heart rate of 102, no ST segment elevation or depression seen, no T-wave inversions seen. Chest x-ray done in the ER showed no acute cardiopulmonary process/disease CT abdominal pelvis done showed no acute abnormality abdominal/pelvis. No evidence of small bowel obstruction. Cardiomegaly. Colonic diverticulosis without acute diverticulitis Patient admitted to internal medicine service 08/23: Patient is laying down in bed she appears to be somewhat short of breath, she continues to have significant generalized weakness, she does complain of no chest pain at this time, she appears to be somewhat short of breath, she is currently on oxygen 3 L nasal cannula, she continues to have swelling both lower extremities, she is complain of increased nausea but no vomiting, she has no energy to do anything, she was seen earlier by cardiology, she is scheduled to go for left heart catheterization today, she had an echocardiogram the result of which still pending at the time of dictation. 08/24: Patient underwent left heart catheterization yesterday by Dr. 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 08/25: Patient appears quite drowsy today, she not able to tolerate her pain management very well, she is stated that she will use Tylenol only along with a muscle relaxer in the form of Robaxin, we will continue with that, discontinue Xanax, discontinue [place], follow-up with the patient very closely, patient was seen and evaluated by physical therapy patient does not want to go to subacute rehabilitation, will see if the patient can qualify to go for home with home PT. 08/26: Patient did have an episode of hematuria today, she was taken off Eliquis, CBC repeated showed a hemoglobin of 8.2, consult urology at this point in time, we will continue to monitor the patient very closely, follow-up with the patient CBC tomorrow morning, if there is no intervention is needed hopefully will discharge the patient home tomorrow morning. REVIEW OF SYSTEMS: Constitutional: No documented fever, no chills, no night sweats. No weight change. positive for weakness, fatigue or lethargy. No daytime sleepiness. EENT: occasiona; headache. No blurred vision or double vision, no loss of vision. No loss of Hearing, no ringing in the ears, no dizziness. No nasal drainage or congestion. No epistaxis. No sore throat. Lungs: positive for shortness of breath, no cough, no sputum production. No wheezing. Reports dyspnea with activity. Cardiovascular: No chest pain, positive for lower extremity edema. positive f or palpitations. No paroxysmal nocturnal dyspnea. No orthopnea. No lightheadedness or dizziness. No syncopal episodes. Abdominal: Reports abdominal pain. positive for nausea, vomiting. No diar clover. No constipation. No bloody or tarry stools reports loss of appetite. Genitourinary: No dysuria, increased frequency, urgency. No urinary retention. Musculoskeletal: No myalgias. positive for muscle weakness, positive for gait dysfunction, no frequent falls. positive for back pain. No neck pain. Integumentary: No wounds, no lesions. No rash or pruritus. No unusual bruising. No change in hair or nails. Neurologic: No aphasia. No facial droop. No change in mentation. No head injury. No headache. No paralysis. No paresthesia. Psychiatric: positive for depression. No anxiety. No mood swings. Endocrine: positive for abnormal blood sugars. No weight change. PHYSICAL EXAMINATION: General: 69-year-old female who is laying down in bed in mild respiratory distress. HEENT: Head is atraumatic, normocephalic, pupils were equal round reactive to light and recommendation, extraocular muscle movement were intact, sclera nonicteric, conjunctivae were pale, mucous membranes of the mouth are somewhat dry. Neck: Supple, no JVP, normal carotid upstroke bilaterally, no lymphadenopathy. Chest: Decreased breath sounds at the bases, few rhonchi, no expiratory wheezes, no chest wall tenderness, no intercostal retractions. Heart: First heart sound is normal, second heart sounds normal there is systolic ejection murmur 2/6 located left sternal border, irregularly irregular due to atrial fibrillation. Abdomen: Soft, nontender, nondistended, positive bowel sounds. Extremities: There is +2 edema no calf tenderness DP +2 bilaterally. Neurologic examination: Patient is awake alert and oriented x3, cranial nerves II-12 appear grossly intact, muscle power were 4 out of 5 in upper extremities and 3 out of 5 in bilateral lower extremities, deep tendon reflexes normal tommy aterally. ASSESSMENT AND PLAN: 1. Acute symptomatic anemia with the negative fecal occult blood, rule out GI loss. Patient was seen in consultation by general surgery, also she will be seen in consultation by hematology there is no plan for any endoscopy at this point in time, we will monitor the patient CBC very closely, transfuse for hemoglobin less than 7. 2. Acute blood loss anemia status post 1 unit of packed blood cell transfusion. Hemoglobin appears to be stable at this time, repeat the CBC in the next 24 hours. Patient will need to have an GI workup as an outpatient. 3. Non-ST elevation myocardial infarction. Patient has been maintained on current drip, aspirin 81 mg once every day, atorvastatin 40 mg once every day, metoprolol 25 mg orally twice every day, patient did have left heart catheterization that showed evidence of 20 to 30% stenosis of the left main, 4050% stenosis of the LAD, and 99% of the RCA with collaterals from left to right, no need for intervention at this point in time. 4. History of coronary artery disease status post PCI of the LAD. Continue treatment as in the previous Paragraph. Continue isosorbide mononitrate 30 mg orally once every day, continue aspirin 81 mg once every day, continue metoprolol 25 mg orally twice every day, continue atorvastatin 40 mg orally once every day. 5. Paroxysmal atrial fibrillation. Continue patient on metoprolol 25 mg orally twice every day, continue Eliquis 5 mg orally twice every day. 6. Hypothyroidism. Continue patient on levothyroxine 112 mcg orally once every day monitor the patient thyroid function test. 7. Diabetes mellitus type 2. Discontinue insulin pump, continue patient on Lantus 28 units at bedtime along with Humalog 5 units before each meal along with a sliding scale insulin. 8. Spondylosis of the lumbar spine status post surgical intervention with significant chronic pain syndrome. Continue hydrocodone for pain control. Continue methocarbamol 500 mg orally every 8 hours as needed. 9. Diabetic polyneuropathy as well as chronic pain syndrome continue duloxetine 30 mg once every day monitor the patient symptoms very closely, continue patient also on pain management. 10. GERD with esophagitis. Continue patient on famotidine 20 mg orally once every day, continue pantoprazole 40 mg orally twice every day, monitor the patient symptoms very closely. 11. Depression. Continue patient on duloxetine 30 mg at bedtime. 12. History of pulmonary embolism. Patient was on Eliquis, she was taken off due to the heart catheterization, currently on heparin drip. 13. Obesity with obstructive sleep apnea and obesity hypoventilation syndrome. Patient will follow-up with pulm medicine as an outpatient. 14. Chronic hypoxemic respiratory failure continue patient on oxygen 3 L nasal cannula, due to chronic systolic heart failure as well as obstructive sleep transit planning director ea and obesity hypoventilation syndrome. 15. DVT prophylaxis. Continue with Eliquis 5 mg orally twice every day. 16. GI prophylaxis. Continue patient on famotidine 20 mg orally twice every day as well as pantoprazole 40 mg orally twice every day. 17. Patient is full code. 18. Prognosis is very guarded. 19. Medical debility. Patient will be seen in by physical therapy, but she elected to go home instead of subacute rehabilitation, will see if she is a candidate for home PT. 20. Gross hematuria. Discontinue Eliquis, urology consultation. Objective - Vital Signs Vital signs: Vital Signs Temp 97.5 F L 08/26/24 08:00 Pulse 76 08/26/24 08:00 Resp 20 08/26/24 08:00 BP 105/67 08/26/24 08:00 Pulse Ox 100 08/26/24 08:00 FiO2 Intake & Output 08/25/24 08/26/24 08/26/24 18:59 06:59 18:59 Weight 113.4 kg Other: Voiding Method Diaper Bedside Commode Diaper # Voids 1 2 # Bowel Movements 1 - Labs CBC & Chem 7: 08/26/24 05:24 08/26/24 05:24 Labs: Abnormal Lab Results - Last 24 Hours (Table) 08/25/24 08/25/24 08/25/24 Range/Units 11:56 15:23 15:23 RBC 3.67 L (3.80-5.40) m/uL Hgb 7.9 L (11.4-16.0) gm/dL Hct 29.5 L (34.0-46.0) % MCH 21.4 L (25.0-35.0) pg MCHC 26.6 L (31.0-37.0) g/dL RDW 19.3 H (11.5-15.5) % Lymphocytes # (Manual) 0.80 L (1.0-4.8) k/uL Nucleated RBCs 2 H (0-0) /100 WBC BUN 23 H (7-17) mg/dL Creatinine 1.16 H (0.52-1.04) mg/dL Glucose 139 H (74-99) mg/dL POC Glucose (mg/dL) 136 H (70-110) mg/dL Calcium 7.9 L (8.4-10.2) mg/dL AST 476 H (14-36) U/L ALT 142 H (4-34) U/L Albumin 3.3 L (3.5-5.0) g/dL 08/25/24 08/25/24 08/26/24 Range/Units 16:35 20:26 05:24 RBC 3.71 L (3.80-5.40) m/uL Hgb 8.2 L (11.4-16.0) gm/dL Hct 30.6 L (34.0-46.0) % MCH 22.0 L (25.0-35.0) pg MCHC 26.6 L (31.0-37.0) g/dL RDW 19.7 H (11.5-15.5) % Lymphocytes # (Manual) 0.62 L (1.0-4.8) k/uL Nucleated RBCs 2 H (0-0) /100 WBC BUN (7-17) mg/dL Creatinine (0.52-1.04) mg/dL Glucose (74-99) mg/dL POC Glucose (mg/dL) 157 H 145 H (70-110) mg/dL Calcium (8.4-10.2) mg/dL AST (14-36) U/L ALT (4-34) U/L Albumin (3.5-5.0) g/dL 08/26/24 08/26/24 Range/Units 05:24 06:17 RBC (3.80-5.40) m/uL Hgb (11.4-16.0) gm/dL Hct (34.0-46.0) % MCH (25.0-35.0) pg MCHC (31.0-37.0) g/dL RDW (11.5-15.5) % Lymphocytes # (Manual) (1.0-4.8) k/uL Nucleated RBCs (0-0) /100 WBC BUN 20 H (7-17) mg/dL Creatinine 1.12 H (0.52-1.04) mg/dL Glucose 109 H (74-99) mg/dL POC Glucose (mg/dL) 121 H (70-110) mg/dL Calcium 8.0 L (8.4-10.2) mg/dL AST 427 H (14-36) U/L ALT 167 H (4-34) U/L Albumin 3.2 L (3.5-5.0) g/dL
[2024-08-26 11:04] LABS: Appearance,Urine Cloudy (Clear); Bacteria,Urine Rare /hpf; Bilirubin,Urine Negative (Negative); Blood,Urine Large (Negative); Color,Urine Light Red; Glucose,Urine (UA) 3+ (Negative); Ketones,Urine 1+ (Negative); Leukocyte Esterase,Urine Small (Negative); Nitrite,Urine Negative (Negative); Protein,Urine 1+ (Negative); RBC,Urine >182 /hpf (0-5); Specific Gravity,Urine 1.019 (1.001-1.035); Squamous Epithelial Cell,Urine 8 /hpf (0-4); Urobilinogen,Urine <2.0 mg/dL (<2.0); WBC,Urine 5 /hpf (0-5)
[2024-08-26 11:32] LABS: Glucose,Whole Blood 132 mg/dL (70-110)
--- NOTE | 2024-08-26 13:48 | P.GSCN ---
History of Present Illness Consult date: 08/26/24 History of present illness: 69 yo female in the hospital with anemia. We were asked to see the patient because of this and hematuria. SHe does have a history of stones treated by Dr tomlin in the past. He last saw her in 2020. SHe had a ct scan on this admission that didnt show any obvious urological abnormalities. Her last hgb was 8.2. Her cr was normal at 1.12. She has microscopic hematuria. She denies gross hematuria. SHe denies recurrent utis. SHe is not having any dysuria or frequency. She denies bladder or flank pain. Review of Systems All systems: negative - Constitutional Denies fever, Denies weight loss - EENT Eyes: denies blurred vision Ears, nose, mouth and throat: Denies dysphagia - Cardiovascular Denies chest pain, Denies shortness of breath - Respiratory Denies cough, Denies 7 - Gastrointestinal Reports as per HPI - Genitourinary Genitourinary: Denies dysuria, Denies hematuria - Integumentary Denies rash, Denies unusual bruising - Neurological Denies headaches, Denies syncope - Hematologic/Lymphatic Denies easy bleeding, Denies easy bruising Past Medical History Past Medical History: Diabetes Mellitus, Hypertension, Myocardial Infarction ([place]) Additional Past Medical History / Comment(s): hypothyroid, kidney stone, GLUCOMA, hx of PE Last Myocardial Infarction Date:: 2022 History of Any Multi-Drug Resistant Organisms: None Reported Past Surgical History: Back Surgery, Hysterectomy Additional Past Surgical History / Comment(s): kidney stones removed and stent CATARACTS REMOVED AND STENT PUT IN FOR GLUCOMA. 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, heart stent 2021 Past Anesthesia/Blood Transfusion Reactions: Previous Problems w/ Anesthesia, Postoperative Nausea & Vomiting (PONV) Additional Past Anesthesia/Blood Transfusion Reaction / Comm: no blood trasnfusion reaction after 1 unit of PRBC Past Psychological History: No Psychological Hx Reported Smoking Status: Never smoker Past Alcohol Use History: None Reported Past Drug Use History: None Reported - Past Family History Mother Family Medical History: No Reported History Father Additional Family Medical History / Comment(s): Heart history Medications and Allergies Home Medications Medication Instructions Recorded Confirmed Type Metoprolol Tartrate [Lopressor] 25 mg PO BID 01/31/14 08/21/24 History Levothyroxine Sodium [Synthroid] 112 mcg PO DAILY 05/16/19 08/21/24 History Losartan Potassium 100 mg PO DAILY 05/16/19 08/21/24 History Famotidine [Pepcid] 20 mg PO BID 04/26/20 08/21/24 History Acetaminophen Tab [Tylenol Tab] 1,000 mg PO Q6HR PRN 08/21/24 08/21/24 History Apixaban [Eliquis] 5 mg PO BID 08/21/24 08/21/24 History Atorvastatin [Lipitor] 40 mg PO HS 08/21/24 08/21/24 History DULoxetine HCL [Cymbalta] 30 mg PO HS 08/21/24 08/21/24 History Empagliflozin [Jardiance] 25 mg PO DAILY 08/21/24 08/21/24 History Furosemide [Lasix] 20 mg PO DAILY PRN 08/21/24 08/21/24 History Insulin Aspart (For Pump) [NovoLOG 0.01 unit SQ-PUMP CONTINUOUS 08/21/24 08/21/24 History (For Pump)] methocarbamoL [Robaxin] 500 mg PO BID 08/21/24 08/21/24 History Allergies Allergy/AdvReac Type Severity Reaction Status Date / Time No Known Allergies Allergy Verified 08/21/24 17:58 Surgical - Exam Vital Signs Pulse Resp BP Pulse Ox 101 H 20 105/59 100 08/21/24 13:35 08/21/24 13:35 08/21/24 13:35 08/21/24 13:35 - General well developed, well nourished, no distress - Eyes normal ocular movement, no icteric - ENT no hearing loss, no congestion - Neck no masses, trachea midline - Respiratory normal respiratory effort, clear to auscultation - Abdomen Abdomen: soft, non tender, no guarding, no rigid, no rebound - Integumentary no rash, no abnormal pigmentation - Neurologic no disoriented, no combative - Psychiatric oriented to time, oriented to person, oriented to place, speech is normal, memory intact Results - Labs 08/26/24 05:24 08/26/24 05:24 Abnormal Lab Results - Last 24 Hours (Table) 08/25/24 08/25/24 08/25/24 Range/Units 11:56 15:23 15:23 RBC 3.67 L (3.80-5.40) m/uL Hgb 7.9 L (11.4-16.0) gm/dL Hct 29.5 L (34.0-46.0) % MCH 21.4 L (25.0-35.0) pg MCHC 26.6 L (31.0-37.0) g/dL RDW 19.3 H (11.5-15.5) % Lymphocytes # (Manual) 0.80 L (1.0-4.8) k/uL Nucleated RBCs 2 H (0-0) /100 WBC BUN 23 H (7-17) mg/dL Creatinine 1.16 H (0.52-1.04) mg/dL Glucose 139 H (74-99) mg/dL POC Glucose (mg/dL) 136 H (70-110) mg/dL Calcium 7.9 L (8.4-10.2) mg/dL AST 476 H (14-36) U/L ALT 142 H (4-34) U/L Albumin 3.3 L (3.5-5.0) g/dL 08/25/24 08/25/24 08/26/24 Range/Units 16:35 20:26 05:24 RBC 3.71 L (3.80-5.40) m/uL Hgb 8.2 L (11.4-16.0) gm/dL Hct 30.6 L (34.0-46.0) % MCH 22.0 L (25.0-35.0) pg MCHC 26.6 L (31.0-37.0) g/dL RDW 19.7 H (11.5-15.5) % Lymphocytes # (Manual) 0.62 L (1.0-4.8) k/uL Nucleated RBCs 2 H (0-0) /100 WBC BUN (7-17) mg/dL Creatinine (0.52-1.04) mg/dL Glucose (74-99) mg/dL POC Glucose (mg/dL) 157 H 145 H (70-110) mg/dL Calcium (8.4-10.2) mg/dL AST (14-36) U/L ALT (4-34) U/L Albumin (3.5-5.0) g/dL 08/26/24 08/26/24 Range/Units 05:24 06:17 RBC (3.80-5.40) m/uL Hgb (11.4-16.0) gm/dL Hct (34.0-46.0) % MCH (25.0-35.0) pg MCHC (31.0-37.0) g/dL RDW (11.5-15.5) % Lymphocytes # (Manual) (1.0-4.8) k/uL Nucleated RBCs (0-0) /100 WBC BUN 20 H (7-17) mg/dL Creatinine 1.12 H (0.52-1.04) mg/dL Glucose 109 H (74-99) mg/dL POC Glucose (mg/dL) 121 H (70-110) mg/dL Calcium 8.0 L (8.4-10.2) mg/dL AST 427 H (14-36) U/L ALT 167 H (4-34) U/L Albumin 3.2 L (3.5-5.0) g/dL Diabetes panel 08/25/24 08/26/24 Range/Units 15:23 05:24 Sodium 141 141 (137-145) mmol/L Potassium 4.4 3.7 (3.5-5.1) mmol/L Chloride 107 105 (98-107) mmol/L Carbon Dioxide 26 29 (22-30) mmol/L BUN 23 H 20 H (7-17) mg/dL Creatinine 1.16 H 1.12 H (0.52-1.04) mg/dL Glucose 139 H 109 H (74-99) mg/dL Calcium 7.9 L 8.0 L (8.4-10.2) mg/dL AST 476 H 427 H (14-36) U/L ALT 142 H 167 H (4-34) U/L Alkaline Phosphatase 68 71 (38-126) U/L Total Protein 6.4 6.3 (6.3-8.2) g/dL Albumin 3.3 L 3.2 L (3.5-5.0) g/dL Calcium panel 08/25/24 08/26/24 Range/Units 15:23 05:24 Calcium 7.9 L 8.0 L (8.4-10.2) mg/dL Albumin 3.3 L 3.2 L (3.5-5.0) g/dL Pituitary panel 08/25/24 08/26/24 Range/Units 15:23 05:24 Sodium 141 141 (137-145) mmol/L Potassium 4.4 3.7 (3.5-5.1) mmol/L Chloride 107 105 (98-107) mmol/L Carbon Dioxide 26 29 (22-30) mmol/L BUN 23 H 20 H (7-17) mg/dL Creatinine 1.16 H 1.12 H (0.52-1.04) mg/dL Glucose 139 H 109 H (74-99) mg/dL Calcium 7.9 L 8.0 L (8.4-10.2) mg/dL Adrenal panel 08/25/24 08/26/24 Range/Units 15:23 05:24 Sodium 141 141 (137-145) mmol/L Potassium 4.4 3.7 (3.5-5.1) mmol/L Chloride 107 105 (98-107) mmol/L Carbon Dioxide 26 29 (22-30) mmol/L BUN 23 H 20 H (7-17) mg/dL Creatinine 1.16 H 1.12 H (0.52-1.04) mg/dL Glucose 139 H 109 H (74-99) mg/dL Calcium 7.9 L 8.0 L (8.4-10.2) mg/dL Total Bilirubin 1.0 1.0 (0.2-1.3) mg/dL AST 476 H 427 H (14-36) U/L ALT 142 H 167 H (4-34) U/L Alkaline Phosphatase 68 71 (38-126) U/L Total Protein 6.4 6.3 (6.3-8.2) g/dL Albumin 3.3 L 3.2 L (3.5-5.0) g/dL - Imaging CT scan - abdomen: report reviewed, image reviewed CT scan - pelvis: report reviewed, image reviewed Assessment and Plan Assessment: Impression: The patient has anemia of unknown etiology. SHe has microscopic hematurai that will require a cystoscopy in the future. It is unlikely that the hematuria is a major contributor to the anemia as there is no obvious urological mass that would usually be necessary to contribute to anemia. I will get a cytology to assess for urothelial ca prior to the ct as there are no gross abnormalities with the bladder on ct scan. Time with Patient: Greater than 30
--- NOTE | 2024-08-26 15:02 | P.PN ---
Subjective Progress Note Date: 08/26/24 SURGICAL PROGRESS NOTE CHIEF COMPLAINT: Anemia HISTORY OF PRESENT ILLNESS: Surgical service following regards to patient's anemia. She denies any active bleeding. No evidence of GI bleeding. Stool for occult blood is negative. Patient denies any nausea or vomiting. Patient reports poor oral intake. She is not eating. She reports that she is not interested in the food. Hemoglobin stable at 8.2. Patient seen by hematology they have added IV iron. Patient had gross hematuria during the night and evaluated by urology PHYSICAL EXAM: VITAL SIGNS: Reviewed. GENERAL: Well-developed in no acute distress. ABDOMEN: Soft. Nondistended. Nontender. ASSESSMENT: 1. Anemia and nausea/vomiting 2. Moderate size hiatal hernia PLAN: -No plans for endoscopy at this time -If continued GI concern, consider outpatient GI follow-up -Continue to monitor hemoglobin -Continue PPI Physician Complaint Investigator note has been reviewed by physician. Signing provider agrees with the documented findings, assessment, and plan of care. Attestation Patient seen and examined at bedside. No acute events. No active bleeding. Being evaluated by urology secondary to hematuria. No current nausea or vomiting. Recommended protein supplementation. Ivonne Manning DO Objective - Vital Signs Vital signs: Vital Signs Temp 98.2 F 08/26/24 12:00 Pulse 72 08/26/24 12:00 Resp 16 08/26/24 12:00 BP 151/76 08/26/24 12:00 Pulse Ox 100 08/26/24 12:00 FiO2 Intake & Output 08/25/24 08/26/24 08/26/24 18:59 06:59 18:59 Intake Total 118 Balance 118 Weight 113.4 kg Intake: Oral 118 Other: Voiding Method Diaper Bedside Commode Diaper # Voids 1 2 # Bowel Movements 1 - Labs CBC & Chem 7: 08/26/24 05:24 08/26/24 05:24 Labs: Abnormal Lab Results - Last 24 Hours (Table) 08/25/24 08/25/24 08/25/24 Range/Units 15:23 15:23 16:35 RBC 3.67 L (3.80-5.40) m/uL Hgb 7.9 L (11.4-16.0) gm/dL Hct 29.5 L (34.0-46.0) % MCH 21.4 L (25.0-35.0) pg MCHC 26.6 L (31.0-37.0) g/dL RDW 19.3 H (11.5-15.5) % Lymphocytes # (Manual) 0.80 L (1.0-4.8) k/uL Nucleated RBCs 2 H (0-0) /100 WBC BUN 23 H (7-17) mg/dL Creatinine 1.16 H (0.52-1.04) mg/dL Glucose 139 H (74-99) mg/dL POC Glucose (mg/dL) 157 H (70-110) mg/dL Calcium 7.9 L (8.4-10.2) mg/dL AST 476 H (14-36) U/L ALT 142 H (4-34) U/L Albumin 3.3 L (3.5-5.0) g/dL Urine Appearance (Clear) Urine Protein (Negative) Urine Glucose (UA) (Negative) Urine Ketones (Negative) Urine Blood (Negative) Ur Leukocyte Esterase (Negative) Urine RBC (0-5) /hpf Ur Squamous Epith Cells (0-4) /hpf Urine Bacteria (None) /hpf 08/25/24 08/26/24 08/26/24 Range/Units 20:26 05:24 05:24 RBC 3.71 L (3.80-5.40) m/uL Hgb 8.2 L (11.4-16.0) gm/dL Hct 30.6 L (34.0-46.0) % MCH 22.0 L (25.0-35.0) pg MCHC 26.6 L (31.0-37.0) g/dL RDW 19.7 H (11.5-15.5) % Lymphocytes # (Manual) 0.62 L (1.0-4.8) k/uL Nucleated RBCs 2 H (0-0) /100 WBC BUN 20 H (7-17) mg/dL Creatinine 1.12 H (0.52-1.04) mg/dL Glucose 109 H (74-99) mg/dL POC Glucose (mg/dL) 145 H (70-110) mg/dL Calcium 8.0 L (8.4-10.2) mg/dL AST 427 H (14-36) U/L ALT 167 H (4-34) U/L Albumin 3.2 L (3.5-5.0) g/dL Urine Appearance (Clear) Urine Protein (Negative) Urine Glucose (UA) (Negative) Urine Ketones (Negative) Urine Blood (Negative) Ur Leukocyte Esterase (Negative) Urine RBC (0-5) /hpf Ur Squamous Epith Cells (0-4) /hpf Urine Bacteria (None) /hpf 08/26/24 08/26/24 08/26/24 Range/Units 06:17 10:40 11:31 RBC (3.80-5.40) m/uL Hgb (11.4-16.0) gm/dL Hct (34.0-46.0) % MCH (25.0-35.0) pg MCHC (31.0-37.0) g/dL RDW (11.5-15.5) % Lymphocytes # (Manual) (1.0-4.8) k/uL Nucleated RBCs (0-0) /100 WBC BUN (7-17) mg/dL Creatinine (0.52-1.04) mg/dL Glucose (74-99) mg/dL POC Glucose (mg/dL) 121 H 132 H (70-110) mg/dL Calcium (8.4-10.2) mg/dL AST (14-36) U/L ALT (4-34) U/L Albumin (3.5-5.0) g/dL Urine Appearance Cloudy H (Clear) Urine Protein 1+ H (Negative) Urine Glucose (UA) 3+ H (Negative) Urine Ketones 1+ H (Negative) Urine Blood Large H (Negative) Ur Leukocyte Esterase Small H (Negative) Urine RBC >182 H (0-5) /hpf Ur Squamous Epith Cells 8 H (0-4) /hpf Urine Bacteria Rare H (None) /hpf
[2024-08-26 16:25] LABS: Glucose,Whole Blood 135 mg/dL (70-110)
[2024-08-26 21:06] LABS: Glucose,Whole Blood 127 mg/dL (70-110)
[2024-08-26] MEDS: ACETAMINOPHEN TAB 500 MG TAB PO PRN (21:14)
[2024-08-27 06:14] LABS: Glucose,Whole Blood 82 mg/dL (70-110)
[2024-08-27 06:48] LABS: Anisocytosis Moderate; HCT 32.4 % (34.0-46.0); HGB 8.4 gm/dL (11.4-16.0); Hypochromasia Marked; MCH 21.3 pg (25.0-35.0); MCHC 25.9 g/dL (31.0-37.0); MCV 82.2 fL (80.0-100.0); Mean Platelet Volume 7.7; Microcytosis Slight; Platelet Count 226 k/uL (150-450); Poikilocytosis Slight; RBC 3.94 m/uL (3.80-5.40); RDW 20.2 % (11.5-15.5)
[2024-08-27 06:54] LABS: ALT 150 U/L (4-34); AST 256 U/L (14-36); African American GFR (CKD) 81 (>60 ml/min/1.73 sqM); Albumin 3.1 g/dL (3.5-5.0); Alkaline Phosphatase 74 U/L (38-126); Anion Gap 5 mmol/L; Blood Urea Nitrogen 14 mg/dL (7-17); Calcium 8.1 mg/dL (8.4-10.2); Carbon Dioxide 31 mmol/L (22-30); Chloride 107 mmol/L (98-107); Glucose 66 mg/dL (74-99); Non-African American GFR(CKD) 70 (>60 ml/min/1.73 sqM); Potassium 3.5 mmol/L (3.5-5.1); Sodium 143 mmol/L (137-145); Total Bilirubin 0.9 mg/dL (0.2-1.3); Total Protein 6.1 g/dL (6.3-8.2)
[2024-08-27 08:30] VITALS: RESP 16
--- NOTE | 2024-08-27 08:40 | P.PN ---
Progress Note - Text Progress Note Date: 08/27/24 The patient was seen for hematuria and anemia. There is no gross hematuria. SHe had micro hematuria once. SHe is on blood thinnners. SHe had a ct scan with no obvious urological abnormalities seen The patient had urine sent for cytology. She will need an op cystoscopy/
[2024-08-27 08:43] LABS: Eosinophils # (M) 0.12 k/uL (0-0.7); Neutrophils % (M) 62 %; Nucleated Red Blood Cells 2 /100 WBC (0-0); Total Cells Counted 200
[2024-08-27 08:46] LABS: Glucose,Whole Blood 62 mg/dL (70-110)
[2024-08-27 08:48] LABS: Lymphocytes # (M) 1.89 k/uL (1.0-4.8); Monocytes # (M) 0.35 k/uL (0-1.0); Neutrophils # (M) 3.66 k/uL (1.3-7.7); WBC 5.9 k/uL (3.8-10.6)
[2024-08-27 11:34] LABS: Glucose,Whole Blood 115 mg/dL (70-110)
[2024-08-27 11:38] VITALS: BP 105/65; PULSE 68; TEMP 97.7
--- NOTE | 2024-08-27 12:56 | P.DS ---
Providers Date of admission: 08/21/24 15:25 Expected date of discharge: 08/27/24 Attending physician: Teresa Fields Consults: 08/21/24 15:12 Consult Physician Urgent Consulting Provider: Frantz Sims Consult Reason/Comments: elevated troponin Do you want consulting provider notified?: Yes 08/21/24 15:13 Consult Physician Urgent Consulting Provider: Chris Decker Consult Reason/Comments: anemia, possible GI bleed Do you want consulting provider notified?: Yes 08/24/24 16:34 Consult Physician Routine Consulting Provider: Eugene Parks Consult Reason/Comments: anemia Do you want consulting provider notified?: Yes 08/26/24 08:01 Consult Physician Urgent Consulting Provider: Gordo Somers Consult Reason/Comments: hematuria, anemia requiring transfusion Do you want consulting provider notified?: Yes Primary care physician: Teresa Fields [facility] Course: HISTORY OF PRESENT ILLNESS: History of present illness; patient is a 69-year-old lady with past medical hist ory significant for coronary artery disease, PE, diabetes type 1, hypertension, kidney stones, TIA presents the ER after being referred by her PCP for abnormal labs. Patient stated that she was seen at her PCP office a couple of days ago where she had her blood work drawn. Patient stated that she has been feeling weak for the last few days. Patient complaining of nausea and vomiting. Patient was complaining of shortness of breath that was present on rest as on exertion. Patient denies any blood in the stool. There is no complaint of any hematemesis. There was no complaint of any chest pain. Patient denies any orthopnea or PND. Patient continued to feel weak. Patient received a call from her PCP office stating that her hemoglobin was low at 6.8 and they wanted her to come to the hospital Initial lab work done in the ER showed WBC 7.9, hemoglobin 7.5, platelet count 271, sodium 139, potassium 4.2, BUN 14, creatinine 0.91, lactate 3.7, troponin 0.165 EKG done in the ER showed heart rate of 102, no ST segment elevation or depression seen, no T-wave inversions seen. Chest x-ray done in the ER showed no acute cardiopulmonary process/disease CT abdominal pelvis done showed no acute abnormality abdominal/pelvis. No evidence of small bowel obstruction. Cardiomegaly. Colonic diverticulosis without acute diverticulitis Patient admitted to internal medicine service 08/23: Patient is laying down in bed she appears to be somewhat short of breath, she continues to have significant generalized weakness, she does complain of no chest pain at this time, she appears to be somewhat short of breath, she is currently on oxygen 3 L nasal cannula, she continues to have swelling both lower extremities, she is complain of increased nausea but no vomiting, she has no energy to do anything, she was seen earlier by cardiology, she is scheduled to go for left heart catheterization today, she had an echocardiogram the result of which still pending at the time of dictation. 08/24: Patient underwent left heart catheterization yesterday by Dr. Elkins that showed evidence of 20 to 30% stenosis of the left main artery, 40 to 50% stenosis of the LAD and about 99% stenosis of the proximal RCA, however there were collaterals from the left to right, patient did have an hypotensive episode in the Television Operator, recovered from that completely, patient has no chest pain at this time has no shortness of breath, it was elected to treat the patient medically as long as the patient is not having any unstable angina at this time, we will continue current treatment plan, she continues to have significant pain in the lumbar spine, increase her [place] to every 6 hours as needed along with methocarbamol 3 times every day, will follow-up with the patient very closely physical therapy evaluation likely will patient would benefit from subacute rehabilitation at [facility]. 08/25: Patient appears quite drowsy today, she not able to tolerate her pain management very well, she is stated that she will use Tylenol only along with a muscle relaxer in the form of Robaxin, we will continue with that, discontinue Xanax, discontinue [place], follow-up with the patient very closely, patient was seen and evaluated by physical therapy patient does not want to go to subacute rehabilitation, will see if the patient can qualify to go for home with home PT. 08/26: Patient did have an episode of hematuria today, she was taken off Eliquis, CBC repeated showed a hemoglobin of 8.2, consult urology at this point in time, we will continue to monitor the patient very closely, follow-up with the patient CBC tomorrow morning, if there is no intervention is needed hopefully will discharge the patient home tomorrow morning. 08/27: Patient continues to have no signs of GI bleed. Blood pressure 105/60, heart rate 68, pulse ox 99% on 2 L. Blood work reveals hemoglobin 8.4, WBC 5.9, platelet count 226. Sodium 143, potassium 3.5, BUN 14 creatinine 0.84. AST 256, ALT 150. Patient has been accepted at [facility] for subacute rehab. Patient will be discharged once all arrangements are completed. DISCHARGE DIAGNOSES: 1. Acute symptomatic anemia with the negative fecal occult blood, rule out GI loss. 2. Acute blood loss anemia status post 1 unit of packed blood cell transfusion. 3. Non-ST elevation myocardial infarction. Heart catheterization that showed evidence of 20 to 30% stenosis of the left main, 40-50% stenosis of the LAD, and 99% of the RCA with collaterals from left to right, no need for intervention at this point in time. 4. History of coronary artery disease status post PCI of the LAD. 5. Paroxysmal atrial fibrillation. 6. Hypothyroidism. 7. Diabetes mellitus type 2. 8. Spondylosis of the lumbar spine status post surgical intervention with significant chronic pain syndrome. 9. Diabetic polyneuropathy as well as chronic pain syndrome. 10. GERD with esophagitis. 11. Depression. 12. History of pulmonary embolism. 13. Obesity with obstructive sleep apnea and obesity hypoventilation syndrome. 14. Chronic hypoxemic respiratory failure continue patient on oxygen 3 L nasal cannula, due to chronic systolic heart failure as well as obstructive sleep apnea and obesity hypoventilation syndrome. 15. Elevated liver function test. 20. Gross hematuria. Discharge plan: [facility] for subacute rehab Greater than 35 minutes utilized in discharge process for this patient. Impression and plan of care have been directed as dictated by the signing physician. Lili Lancaster nurse practitioner acting as scribe for signing physician. Patient Condition at Discharge: Stable Plan - Discharge Summary Discharge Rx Participant: Yes New Discharge Prescriptions: New Isosorbide Mononitrate ER [Imdur] 30 mg PO DAILY tab Insulin Detemir (Levemir) [Levemir] 23 unit SQ HS each Metoprolol Tartrate [Lopressor] 50 mg PO BID tab Aspirin 81 mg PO DAILY tab INSULIN ASPART (NovoLOG) [NovoLOG (formulary)] 5 unit SQ AC-TID each INSULIN ASPART (NovoLOG) [NovoLOG (formulary)] 0 unit SQ ACHS each Pantoprazole [Protonix] 40 mg PO DAILY tab Continue Losartan Potassium 100 mg PO DAILY Levothyroxine Sodium [Synthroid] 112 mcg PO DAILY Famotidine [Pepcid] 20 mg PO BID Furosemide [Lasix] 20 mg PO DAILY PRN PRN Reason: Edema methocarbamoL [Robaxin] 500 mg PO BID Apixaban [Eliquis] 5 mg PO BID DULoxetine HCL [Cymbalta] 30 mg PO HS Empagliflozin [Jardiance] 25 mg PO DAILY Acetaminophen Tab [Tylenol] 1,000 mg PO Q6HR PRN PRN Reason: Pain Atorvastatin [Lipitor] 40 mg PO HS Discontinued Metoprolol Tartrate [Lopressor] 25 mg PO BID Insulin Aspart (For Pump) [NovoLOG (For Pump)] 0.01 unit SQ-PUMP CONTINUOUS Discharge Medication List Levothyroxine Sodium [Synthroid] 112 mcg PO DAILY 05/16/19 [History] Losartan Potassium 100 mg PO DAILY 05/16/19 [History] Famotidine [Pepcid] 20 mg PO BID 04/26/20 [History] Acetaminophen Tab [Tylenol] 1,000 mg PO Q6HR PRN 08/21/24 [History] Apixaban [Eliquis] 5 mg PO BID 08/21/24 [History] Atorvastatin [Lipitor] 40 mg PO HS 08/21/24 [History] DULoxetine HCL [Cymbalta] 30 mg PO HS 08/21/24 [History] Empagliflozin [Jardiance] 25 mg PO DAILY 08/21/24 [History] Furosemide [Lasix] 20 mg PO DAILY PRN 08/21/24 [History] methocarbamoL [Robaxin] 500 mg PO BID 08/21/24 [History] Aspirin 81 mg PO DAILY tab 08/27/24 [Rx] INSULIN ASPART (NovoLOG) [NovoLOG (formulary)] 0 unit SQ ACHS each 08/27/24 [Rx ] INSULIN ASPART (NovoLOG) [NovoLOG (formulary)] 5 unit SQ AC-TID each 08/27/24 [Rx] Insulin Detemir (Levemir) [Levemir] 23 unit SQ HS each 08/27/24 [Rx] Isosorbide Mononitrate ER [Imdur] 30 mg PO DAILY tab 08/27/24 [Rx] Metoprolol Tartrate [Lopressor] 50 mg PO BID tab 08/27/24 [Rx] Pantoprazole [Protonix] 40 mg PO DAILY tab 08/27/24 [Rx] Follow up Appointment(s)/Referral(s): [facility],Home Care [NON-STAFF] - Sadiq Navarro MD [STAFF PHYSICIAN] - 10 Days (cystoscopy) Teresa Fields MD [Primary Care Provider] - 1 Week (AT [facility]) Discharge Disposition: TRANSFER TO SNF/F
[2024-08-27 14:21] VITALS: BMI 48.7
--- NOTE | 2024-08-27 14:25 | P.PN ---
Subjective Progress Note Date: 08/27/24 SURGICAL PROGRESS NOTE CHIEF COMPLAINT: Anemia HISTORY OF PRESENT ILLNESS: Surgical service following regards to patient's anemia. She denies any active bleeding. No evidence of GI bleeding. Stool for occult blood is negative. Patient denies any nausea or vomiting. Patient did eat her oatmeal this morning. Hemoglobin stable at 8.4 PHYSICAL EXAM: VITAL SIGNS: Reviewed. GENERAL: Well-developed in no acute distress. ABDOMEN: Soft. Nondistended. Nontender. ASSESSMENT: 1. Anemia with iron deficiency anemia. Status post IV iron 2. Moderate size hiatal hernia PLAN: -No plans for endoscopy at this time -Recommend EGD and colonoscopy outpatient -Agree with discharge Physician Laborer [place] note has been reviewed by physician. Signing provider agrees with the documented findings, assessment, and plan of care. Objective - Vital Signs Vital signs: Vital Signs Temp 97.7 F 08/27/24 11:35 Pulse 68 08/27/24 11:35 Resp 16 08/27/24 11:35 BP 105/65 08/27/24 11:35 Pulse Ox 99 08/27/24 11:35 FiO2 Intake & Output 08/26/24 08/27/24 08/27/24 18:59 06:59 18:59 Intake Total 118 Output Total 400 200 Balance 118 -400 -200 Weight 113.2 kg 113.2 kg Intake: Oral 118 Output: Urine 400 200 Other: Voiding Method Bedside Commode Bedside Commode Bedside Commode # Voids 1 3 - Labs CBC & Chem 7: 08/27/24 06:10 08/27/24 06:10 Labs: Abnormal Lab Results - Last 24 Hours (Table) 08/26/24 08/26/24 08/27/24 Range/Units 16:22 21:01 06:10 Hgb 8.4 L (11.4-16.0) gm/dL Hct 32.4 L (34.0-46.0) % MCH 21.3 L (25.0-35.0) pg MCHC 25.9 L (31.0-37.0) g/dL RDW 20.2 H (11.5-15.5) % Nucleated RBCs 2 H (0-0) /100 WBC Carbon Dioxide (22-30) mmol/L Glucose (74-99) mg/dL POC Glucose (mg/dL) 135 H 127 H (70-110) mg/dL Calcium (8.4-10.2) mg/dL AST (14-36) U/L ALT (4-34) U/L Total Protein (6.3-8.2) g/dL Albumin (3.5-5.0) g/dL 08/27/24 08/27/24 08/27/24 Range/Units 06:10 08:44 11:32 Hgb (11.4-16.0) gm/dL Hct (34.0-46.0) % MCH (25.0-35.0) pg MCHC (31.0-37.0) g/dL RDW (11.5-15.5) % Nucleated RBCs (0-0) /100 WBC Carbon Dioxide 31 H (22-30) mmol/L Glucose 66 L (74-99) mg/dL POC Glucose (mg/dL) 62 L 115 H (70-110) mg/dL Calcium 8.1 L (8.4-10.2) mg/dL AST 256 H (14-36) U/L ALT 150 H (4-34) U/L Total Protein 6.1 L (6.3-8.2) g/dL Albumin 3.1 L (3.5-5.0) g/dL
--- NOTE | 2024-08-27 18:41 | P.PN ---
Subjective Progress Note Date: 08/27/24 No acute events overnight. Hgb slowly improving, 8.4 today. Denies any episodes of acute bleeding. Plan for rehab upon discharge Objective - Vital Signs Vital signs: Vital Signs Temp 97.7 F 08/27/24 11:35 Pulse 68 08/27/24 11:35 Resp 16 08/27/24 11:35 BP 105/65 08/27/24 11:35 Pulse Ox 99 08/27/24 11:35 FiO2 Intake & Output 08/26/24 08/27/24 08/27/24 18:59 06:59 18:59 Intake Total 118 Output Total 400 200 Balance 118 -400 -200 Weight 113.2 kg Intake: Oral 118 Output: Urine 400 200 Other: Voiding Method Bedside Commode Bedside Commode Bedside Commode # Voids 1 3 - Constitutional General appearance: Present: no acute distress, obese - EENT Eyes: Present: anicteric sclerae, EOMI ENT: Present: hearing grossly normal - Respiratory Details: breathing is even and unlabored - Cardiovascular Details: skin warm and dry - Integumentary Integumentary: Present: pale. Absent: cyanotic - Musculoskeletal Musculoskeletal: Present: generalized weakness - Psychiatric Psychiatric: Present: A&O x's 3 - Labs CBC & Chem 7: 08/27/24 06:10 08/27/24 06:10 Labs: Abnormal Lab Results - Last 24 Hours (Table) 08/26/24 08/26/24 08/27/24 Range/Units 16:22 21:01 06:10 Hgb 8.4 L (11.4-16.0) gm/dL Hct 32.4 L (34.0-46.0) % MCH 21.3 L (25.0-35.0) pg MCHC 25.9 L (31.0-37.0) g/dL RDW 20.2 H (11.5-15.5) % Nucleated RBCs 2 H (0-0) /100 WBC Carbon Dioxide (22-30) mmol/L Glucose (74-99) mg/dL POC Glucose (mg/dL) 135 H 127 H (70-110) mg/dL Calcium (8.4-10.2) mg/dL AST (14-36) U/L ALT (4-34) U/L Total Protein (6.3-8.2) g/dL Albumin (3.5-5.0) g/dL 08/27/24 08/27/24 08/27/24 Range/Units 06:10 08:44 11:32 Hgb (11.4-16.0) gm/dL Hct (34.0-46.0) % MCH (25.0-35.0) pg MCHC (31.0-37.0) g/dL RDW (11.5-15.5) % Nucleated RBCs (0-0) /100 WBC Carbon Dioxide 31 H (22-30) mmol/L Glucose 66 L (74-99) mg/dL POC Glucose (mg/dL) 62 L 115 H (70-110) mg/dL Calcium 8.1 L (8.4-10.2) mg/dL AST 256 H (14-36) U/L ALT 150 H (4-34) U/L Total Protein 6.1 L (6.3-8.2) g/dL Albumin 3.1 L (3.5-5.0) g/dL Assessment and Plan (1) Anemia Status: Acute Priority: Medium Code(s): D64.9 - ANEMIA, UNSPECIFIED SNOMED Code(s): 807899570 Plan: Normocytic hypochromic anemia: Presented to emergency room for weakness and nausea vomiting, decreased appetite. She reports no unintentional weight loss, or night sweats. Denies episodes of acute bleeding, rectal bleeding and melena. Denies history of bowel/GI surgery, IBD/celiac disease. Denies excessive use of NSAIDs. Last colonoscopy was approximately 2 to 3 years ago which per pt showed no evidence of acute bleeding. Pt has hx of pulmonary embolism anticoagulated with Eliquis. Upon trending labs, anemia noted since 09/2022, with hgb in the 7-8 range. -Upon admit CT abdomen and pelvis showing no acute abnormality in the abdomen pelvis, specifically no evidence of small bowel obstruction. With moderate sized hiatal hernia with partial intrathoracic stomach. -Hemoglobin slowly improving, 8.4 today, no reported episodes of acute bleeding. -Nutritional studies showing iron saturation 2.18%, ferritin 23.5. Vitamin B12 1001, folate 702 -Parenteral iron x 4 ordered -General surgery consulted, no plan for endoscopic evaluation at this time -Anemia could be secondary to CKD, hiatal hernia, however GI bleed/AVMs remains within differential -Will schedule f/u outpt, and give additional IV iron as needed -Recommend outpt GI f/u for endoscopic evaluation -Continue to monitor CBC, transfuse for hgb <7 or if symptomatic
[2024-08-27] MEDS ORDERED: INSULIN DETEMIR (LEVEMIR) 100 UNIT/ML SYR SQ SCH (21:00)
== END 2024-08-27 16:02 | DRG 281 ==
LOC: EC 13:32 → 3SCARD 15:25
PROVIDERS: ADMIT Internal Medicine; ATTEND Internal Medicine
PROC: 30233N1 Transfusion of Nonautologous Red Blood Cells into Peripheral Vein, Percutaneous Approach (ICD-10-PCS; 2024-08-21)
PROC: B2111ZZ Fluoroscopy of Multiple Coronary Arteries using Low Osmolar Contrast (ICD-10-PCS; 2024-08-23)
PROC: 4A023N7 Measurement of Cardiac Sampling and Pressure, Left Heart, Percutaneous Approach (ICD-10-PCS; principal; 2024-08-23 11:35)
DX: I21.4 Non-ST elevation (NSTEMI) myocardial infarction (principal); D62 Acute posthemorrhagic anemia; I11.0 Hypertensive heart disease with heart failure; E66.2 Morbid (severe) obesity with alveolar hypoventilation; I50.22 Chronic systolic (congestive) heart failure; I48.92 Unspecified atrial flutter; E03.9 Hypothyroidism, unspecified; F32.A Depression, unspecified; E10.42 Type 1 diabetes mellitus with diabetic polyneuropathy; I72.1 Aneurysm of artery of upper extremity; I07.1 Rheumatic tricuspid insufficiency; D50.9 Iron deficiency anemia, unspecified; J96.11 Chronic respiratory failure with hypoxia; I42.9 Cardiomyopathy, unspecified; K44.9 Diaphragmatic hernia without obstruction or gangrene; R11.2 Nausea with vomiting, unspecified; I25.10 Atherosclerotic heart disease of native coronary artery without angina pectoris; Z95.5 Presence of coronary angioplasty implant and graft; E78.5 Hyperlipidemia, unspecified; Z86.718 Personal history of other venous thrombosis and embolism; I48.0 Paroxysmal atrial fibrillation; G89.4 Chronic pain syndrome; M47.816 Spondylosis without myelopathy or radiculopathy, lumbar region; K21.00 Gastro-esophageal reflux disease with esophagitis, without bleeding; I95.9 Hypotension, unspecified; I25.2 Old myocardial infarction; Z87.442 Personal history of urinary calculi; Z79.890 Hormone replacement therapy; K57.30 Diverticulosis of large intestine without perforation or abscess without bleeding; Z79.01 Long term (current) use of anticoagulants; R31.0 Gross hematuria; Z79.02 Long term (current) use of antithrombotics/antiplatelets; Z79.4 Long term (current) use of insulin; Z79.82 Long term (current) use of aspirin; Z79.84 Long term (current) use of oral hypoglycemic drugs; Z86.711 Personal history of pulmonary embolism; Z79.899 Other long term (current) drug therapy; Z86.73 Personal history of transient ischemic attack (TIA), and cerebral infarction without residual deficits; Z90.710 Acquired absence of both cervix and uterus; Z96.41 Presence of insulin pump (external) (internal); Z99.81 Dependence on supplemental oxygen
CPT/HCPCS: 36415; 36430; 71045; 74177; 80053; 81001; 82272; 82607; 82728; 82747; 83540; 83550; 83605; 83735; 83880; 84484; 85025; 85045; 85610; 85730; 86850; 86900; 86901; 86920; 88108; 93005; 93306; 93458; 96361; 96374; 96376; 99291

== ENCOUNTER 2024-10-22 16:18 | Emergency (ER) | payer MEDICARE ==
--- NOTE | 2024-10-22 16:51 | ED ---
Weakness HPI - General Chief complaint: Weakness Stated complaint: Weakness Time Seen by Provider: 10/22/24 16:20 Source: patient, family, RN notes reviewed, old records reviewed Mode of arrival: EMS Limitations: no limitations - History of Present Illness Initial comments: This is a 69-year-old female with recent hospital discharge coming in for evalua tion of back pain chronic pain and debility. Patient got home today when had difficulty getting in her house called EMS for lift assist and was brought to the ER for further evaluation. At this time patient would like to continue to try discharge home and does not want further hospitalization MD Complaint: generalized weakness, lack of energy, difficulty walking -: hour(s) Location: generalized Severity: moderate Severity scale (1-10): 4 Consistency: constant Improves with: none Worsens with: none Context: recent illness, history of similar Associated Symptoms: myalgias, other (History of chronic back pain and surgery) - Related Data Home Medications Medication Instructions Recorded Confirmed Levothyroxine Sodium [Synthroid] 112 mcg PO DAILY 05/16/19 10/23/24 Losartan Potassium 100 mg PO DAILY 05/16/19 10/23/24 Famotidine [Pepcid] 20 mg PO BID 04/26/20 10/23/24 Acetaminophen Tab [Tylenol] 1,000 mg PO Q6HR PRN 08/21/24 10/23/24 Apixaban [Eliquis] 5 mg PO BID 08/21/24 10/23/24 Atorvastatin [Lipitor] 40 mg PO HS 08/21/24 10/23/24 Empagliflozin [Jardiance] 25 mg PO DAILY 08/21/24 10/23/24 Furosemide [Lasix] 20 mg PO DAILY PRN 08/21/24 10/23/24 methocarbamoL [Robaxin] 500 mg PO BID 08/21/24 10/23/24 Insulin Aspart (For Pump) [NovoLOG 0.01 unit SQ-PUMP CONTINUOUS 10/23/24 5 (For Pump)] Metoprolol Tartrate [Lopressor] 25 mg PO BID 10/23/24 10/23/24 Previous Rx's Medication Instructions Recorded Aspirin 81 mg PO DAILY tab 08/27/24 HYDROcodone/APAP 5-325MG [Calvin 1 each PO Q4HR PRN #18 tab 10/26/24 5-325] Pantoprazole [Protonix] 40 mg PO AC-BRKFST tab 10/26/24 Tamsulosin [Flomax] 0.4 mg PO PC-BRKFST cap 10/26/24 Allergies Allergy/AdvReac Type Severity Reaction Status Date / Time No Known Allergies Allergy Verified 08/21/24 17:58 Review of Systems ROS Statement: Those systems with pertinent positive or pertinent negative responses have been documented in the HPI. ROS Other: All systems not noted in ROS Statement are negative. Past Medical History Past Medical History: Diabetes Mellitus, Hypertension, Myocardial Infarction ([place]) Additional Past Medical History / Comment(s): hypothyroid, kidney stone, GLUCOMA, hx of PE Last Myocardial Infarction Date:: 2022 History of Any Multi-Drug Resistant Organisms: None Reported Past Surgical History: Back Surgery, Hysterectomy Additional Past Surgical History / Comment(s): kidney stones removed and stent CATARACTS REMOVED AND STENT PUT IN FOR GLUCOMA. 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, heart stent 2021 Past Anesthesia/Blood Transfusion Reactions: Previous Problems w/ Anesthesia, Postoperative Nausea & Vomiting (PONV) Additional Past Anesthesia/Blood Transfusion Reaction / Comment(s): no blood trasnfusion reaction after 1 unit of PRBC Past Psychological History: No Psychological Hx Reported Smoking Status: Never smoker Past Alcohol Use History: None Reported Past Drug Use History: None Reported - Past Family History Mother Family Medical History: No Reported History Father Additional Family Medical History / Comment(s): Heart history General Exam Limitations: no limitations General appearance: alert, in no apparent distress Head exam: Present: atraumatic, normocephalic, normal inspection Eye exam: Present: normal appearance, PERRL, EOMI. Absent: scleral icterus, conjunctival injection, periorbital swelling ENT exam: Present: normal exam, mucous membranes moist Neck exam: Present: normal inspection. Absent: tenderness, meningismus, lymphadenopathy Respiratory exam: Present: normal lung sounds bilaterally. Absent: respiratory distress, wheezes, rales, rhonchi, stridor Cardiovascular Exam: Present: regular rate, normal rhythm, normal heart sounds. Absent: systolic murmur, diastolic murmur, rubs, gallop, clicks GI/Abdominal exam: Present: soft, normal bowel sounds. Absent: distended, tenderness, guarding, rebound, rigid Extremities exam: Present: normal inspection, full ROM, normal capillary refill. Absent: tenderness, pedal edema, joint swelling, calf tenderness Back exam: Present: normal inspection Neurological exam: Present: alert, oriented X3, CN II-XII intact Psychiatric exam: Present: normal affect, normal mood Skin exam: Present: warm, dry, intact, normal color. Absent: rash Course Vital Signs 10/22/24 10/22/24 10/22/24 16:28 18:45 20:53 Pulse Rate 69 82 76 Respiratory 20 18 18 Rate Blood Pressure 122/74 129/94 135/72 O2 Sat by Pulse 95 97 95 Oximetry - Reevaluation(s) Reevaluation #1: Medical records reviewed Reevaluation #2: Patient symptoms unchanged Reevaluation #3: Informed of results and questions answered Reevaluation #4: Was pt. sent in by a medical professional or institution (, JOSHUA, BUSINESS TRANSFORMATION CONSULTANT, urgent care, hospital, or [place] health care facility...) When possible be specific @ -no Did you speak to anyone other than the patient for history (EMS, parent, family, police, friend...)? What history was obtained from this source @ -no Did you review nursing and triage notes (agree or disagree)? Why? @ -agree Are old charts reviewed (outside hosp., previous admission, EMS record, old EKG, old radiological studies, urgent care reports/EKG's, [place] [facility] facility records)? Report findings @ -yes Differential Diagnosis (chest pain, altered mental status, abdominal pain women, abdominal pain men, vaginal bleeding, weakness, fever, dyspnea, syncope, headache, dizziness, GI bleed, back pain, seizure, CVA, palpatations, mental health, musculoskeletal)? @ -prior EKG interpreted by me (3pts min.). @ -no X-rays interpreted by me (1pt min.). @ -no CT interpreted by me (1pt min.). @ -no U/S interpreted by me (1pt. min.). @ -no What testing was considered but not performed or refused? (CT, X-rays, U/S, labs)? Why? @ -none What meds were considered but not given or refused? Why? @ -none Did you discuss the management of the patient with other professionals (professionals i.e. , JOSHUA, BUSINESS TRANSFORMATION CONSULTANT, lab, RT, psych nurse, social media assistant, retail beauty specialist, teacher, program officer, caser)? Give summary @ -no Was smoking cessation discussed for >3mins.? @ -no Was critical care preformed (if so, how long)? @ -no Were there social determinants of health that impacted care today? How? (Homelessness, low income, unemployed, alcoholism, drug addiction, transportation, low edu. Level, literacy, decrease access to med. care, assisted, rehab)? @ -none Was there de-escalation of care discussed even if they declined (Discuss DNR or withdrawal of care, Hospice)? DNR status @ -no What co-morbidities impacted this encounter? (DM, HTN, Smoking, COPD, CAD, Cancer, CVA, ARF, Chemo, Hep., AIDS, mental health diagnosis, sleep apnea, morbid obesity)? @ -none Was patient admitted / discharged? Hospital course, mention meds given and route, prescriptions, significant lab abnormalities, going to OR and other pertinent info. @ - 69 female with persistent weakness and debility. Patient has no acute organic cause of symptoms here in the ER safe for discharge home Discharge Undiagnosed new problem with uncertain prognosis? @ -no Drug Therapy requiring intensive monitoring for toxicity (Heparin, Nitro, Insulin, Cardizem)? @ -no Were any procedures done? @ -no Diagnosis/symptom? @ -Weakness and debility with prolonged hospital stay Acute, or Chronic, or Acute on Chronic? @ -Acute Uncomplicated (without systemic symptoms) or Complicated (systemic symptoms)? @ -Complicated Side effects of treatment? @ -no Exacerbation, Progression, or Severe Exacerbation? @ -exacerbation Poses a threat to life or bodily function? How? (Chest pain, [place], [place], pneumonia, PE, COPD, DKA, ARF, appy, cholecystitis, CVA, Diverticulitis, Homicidal, Suicidal, threat to staff... and all critical care pts) @ -yes extremes of age Reevaluation #5: Differential Weakness: Hypoglycemia, shock, sepsis, hyponatremia, anemia, infection, VA, ETOH, adverse medicine reaction, overdose, stroke, this is not meant to be an all-inclusive list. EKG Findings - EKG Comments: EKG Findings:: EKG is sinus 80 [place] 182 QRS 112 QTc 480 - EKG Results: EKG: interpreted by ERMD Medical Decision Making - Medical Decision Making 69 female with persistent weakness and debility. Patient has no acute organic cause of symptoms here in the ER safe for discharge home Disposition Clinical Impression: Debility, Weakness Disposition: HOME SELF-CARE Condition: Good Instructions (If sedation given, give patient instructions): Weakness (ED) Is patient prescribed a controlled substance at d/c from ED?: No Referrals: Teresa Fields MD [Primary Care Provider] - 1-2 days Time of Disposition: 19:00
[2024-10-22 18:49] VITALS: RESP 18
[2024-10-22 21:00] VITALS: BP 135/72; PULSE 76
== END 2024-10-22 20:53 | disposition home or self-care (01) ==
LOC: EC 16:18
DX: R53.1 Weakness (principal); R53.81 Other malaise
CPT/HCPCS: 99285

== ENCOUNTER 2024-10-23 10:50 | Inpatient (IN) | payer MEDICARE ==
--- NOTE | 2024-10-23 11:48 | ED ---
Weakness HPI - General Chief complaint: Weakness Stated complaint: weaknness, right leg pain Time Seen by Provider: 10/23/24 10:57 Source: patient, RN notes reviewed Mode of arrival: EMS Limitations: no limitations - History of Present Illness Initial comments: This is a 69-year-old female who presents to the emergency department for right leg pain and weakness. Patient has a history of chronic back problems resulting in several surgeries. She continues to have chronic pain and weakness in her right leg, making it very difficult for her to get around. Denies any substantial difficulty on the left side. She was discharged from [facility] 2 days ago and came to the emergency department yesterday. She was given the option of admission but requested to go home at that point. States that today her was unable to help her move or get out of bed and he called EMS to bring her back here for evaluation. Patient believes that she likely needs to return to an [facility] facility and does not believe that she could undergo another back surgery. Currently taking Tylenol for pain control, however it is not particularly effective. She is however hesitant to take anything much stronger. Denies any other concerns/complaints such as chest pain, shortness of breath, abdominal pain, nausea, or vomiting. - Related Data Home Medications Medication Instructions Recorded Confirmed Levothyroxine Sodium [Synthroid] 112 mcg PO DAILY 05/16/19 10/23/24 Losartan Potassium 100 mg PO DAILY 05/16/19 10/23/24 Famotidine [Pepcid] 20 mg PO BID 04/26/20 10/23/24 Acetaminophen Tab [Tylenol] 1,000 mg PO Q6HR PRN 08/21/24 10/23/24 Apixaban [Eliquis] 5 mg PO BID 08/21/24 10/23/24 Atorvastatin [Lipitor] 40 mg PO HS 08/21/24 10/23/24 Empagliflozin [Jardiance] 25 mg PO DAILY 08/21/24 10/23/24 Furosemide [Lasix] 20 mg PO DAILY PRN 08/21/24 10/23/24 methocarbamoL [Robaxin] 500 mg PO BID 08/21/24 10/23/24 Insulin Aspart (For Pump) [NovoLOG 0.01 unit SQ-PUMP CONTINUOUS 10/23/24 10/23/24 (For Pump)] Metoprolol Tartrate [Lopressor] 25 mg PO BID 10/23/24 10/23/24 Previous Rx's Medication Instructions Recorded Aspirin 81 mg PO DAILY tab 08/27/24 Allergies Allergy/AdvReac Type Severity Reaction Status Date / Time No Known Allergies Allergy Verified 08/21/24 17:58 Review of Systems ROS Statement: Those systems with pertinent positive or pertinent negative responses have been documented in the HPI. ROS Other: All systems not noted in ROS Statement are negative. Past Medical History Past Medical History: Diabetes Mellitus, Hypertension, Myocardial Infarction ([place]) Additional Past Medical History / Comment(s): hypothyroid, kidney stone, GLUCOMA, hx of PE Last Myocardial Infarction Date:: 2022 History of Any Multi-Drug Resistant Organisms: None Reported Past Surgical History: Back Surgery, Hysterectomy Additional Past Surgical History / Comment(s): kidney stones removed and stent CATARACTS REMOVED AND STENT PUT IN FOR GLUCOMA. 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, heart stent 2021 Past Anesthesia/Blood Transfusion Reactions: Previous Problems w/ Anesthesia, Postoperative Nausea & Vomiting (PONV) Additional Past Anesthesia/Blood Transfusion Reaction / Comment(s): no blood trasnfusion reaction after 1 unit of PRBC Past Psychological History: No Psychological Hx Reported Smoking Status: Never smoker Past Alcohol Use History: None Reported Past Drug Use History: None Reported - Past Family History Mother Family Medical History: No Reported History Father Additional Family Medical History / Comment(s): Heart history General Exam Limitations: no limitations General appearance: alert, in no apparent distress Head exam: Present: atraumatic, normocephalic, normal inspection Respiratory exam: Present: normal lung sounds bilaterally. Absent: respiratory distress, wheezes, rales, rhonchi, stridor Cardiovascular Exam: Present: regular rate, normal rhythm Extremities exam: Present: other (Generalized tenderness to the right lower extremity. Range of motion limited by pain.) Neurological exam: Present: alert, oriented X3, CN II-XII intact Psychiatric exam: Present: normal affect, normal mood Course Vital Signs 10/23/24 10/23/24 10/23/24 10:55 11:58 12:38 Temperature 97.7 F Pulse Rate 90 75 85 Pulse Rate [ Left] Respiratory 20 20 16 Rate Blood Pressure 141/59 130/60 135/87 Blood Pressure [Left Arm] O2 Sat by Pulse 100 98 98 Oximetry 10/23/24 10/23/24 10/23/24 12:48 13:34 14:00 Temperature 97.7 F Pulse Rate 97 75 Pulse Rate [ 79 Left] Respiratory 20 20 17 Rate Blood Pressure 131/46 130/68 Blood Pressure 134/84 [Left Arm] O2 Sat by Pulse 100 98 94 L Oximetry Medical Decision Making - Medical Decision Making This is a 69-year-old female who presents to the emergency department for right leg pain and weakness. Was pt. sent in by a medical professional or institution? @ -No Did you speak to anyone other than the patient for history? @ -No Did you review nursing and triage notes? @ -Yes, and I agree, it is accurate with regards to the patient's symptoms. Were old charts reviewed? @ -No Differential Diagnosis? @ -Differential Musculoskeletal Muscular strain, contusion, ligament sprain, fracture, arthritis, septic arthritis, bursitis, cellulitis, muscle spasm, nerve compression, DVT, arterial occlusion, herpes zoster, electrolyte abnormality, tumor.... This is not meant to be in all inclusive list EKG interpreted by me (3pts min.)? @ -EKG interpreted by me demonstrating the following: Sinus rhythm. Ventricular rate 90 bpm, MD interval 148 ms, QRS duration 111 ms, QTc 439 ms. X-rays interpreted by me (1pt min.)? @ -Not obtained CT interpreted by me (1pt min.)? @ -CT scan of the lumbar spine obtained. My interpretation identifies no acute fractures. U/S interpreted by me (1pt. min.)? @ -Duplex ultrasound of the right lower extremity obtained. My interpretation identifies no evidence of a DVT. What testing was considered but not performed? (CT, X-rays, U/S, labs)? Why? @ -None What meds were considered but not given? Why? @ -None Did you discuss the management of the patient with other professionals? @ -No Did you reconcile home meds? @ -Yes Was smoking cessation discussed for >3mins.? @ -No Was critical care preformed (if so, how long)? @ -No Were there social determinants of health that impacted care today? How? (Homelessness, low income, unemployed, alcoholism, drug addiction, tr ansportation, low edu. Level, literacy, decrease access to med. care, detention, rehab)? @ -No Was there de-escalation of care discussed even if they declined? (Discuss DNR or withdrawal of care, Hospice)? @ -No What co-morbidities impacted this encounter? (DM, HTN, Smoking, COPD, CAD, Cancer, CVA, Hep., AIDS, mental health diagnosis, sleep apnea, morbid obesity)? @ -DM, chronic back pain Was patient admitted / discharged? @ -Admitted. Lab work demonstrates signs of mild dehydration as well as hypomagnesemia with a magnesium of 1.3. 400 mg of magnesium oxide administered along with 3 g of magnesium sulfate. Lactic acid elevated at 2.2. Urinalysis negative for signs of infection. Duplex ultrasound of the right lower extremity obtained revealing no evidence of a DVT. CT scan of the lumbar spine obtained revealing progressive and severe multilevel degenerative disc disease with lateral disc protrusions/herniations at the L4-5 disc, right greater than left with severe L4-5 neuroforamina bilaterally. Patient admitted to medicine for the intractable right leg pain with weakness and inability to ambulate. Consult placed for physical and occupational therapy. Case discussed with ED attending Dr. Dai. Undiagnosed new problem with uncertain prognosis? @ -None Drug Therapy requiring intensive monitoring for toxicity (Heparin, Nitro, Insulin, Cardizem)? @ -None Were any procedures done? @ -None Diagnosis/symptom? @ -Intractable leg pain, weakness, inability to ambulate Acute, or Chronic, or Acute on Chronic? @ -Chronic Uncomplicated (without systemic symptoms) or Complicated (systemic symptoms)? @ -Complicated Side effects of treatment? @ -None Exacerbation, Progression, or Severe Exacerbation] @ -Progression Poses a threat to life or bodily function? @ -Yes, patient unable to function. - Lab Data Result diagrams: 10/23/24 11:57 10/23/24 11:57 Lab Results 10/23/24 10/23/24 10/23/24 Range/Units 11:57 11:57 11:57 WBC 9.5 (3.8-10.6) k/uL RBC 4.03 (3.80-5.40) m/uL Hgb 10.7 L (11.4-16.0) gm/dL Hct 36.3 (34.0-46.0) % MCV 90.0 D (80.0-100.0) fL MCH 26.5 (25.0-35.0) pg MCHC 29.5 L (31.0-37.0) g/dL RDW 18.4 H (11.5-15.5) % Plt Count 258 (150-450) k/uL MPV 8.6 Neutrophils % 72 % Lymphocytes % 19 % Monocytes % 7 % Eosinophils % 1 % Basophils % 0 % Neutrophils # 6.8 (1.3-7.7) k/uL Lymphocytes # 1.8 (1.0-4.8) k/uL Monocytes # 0.7 (0-1.0) k/uL Eosinophils # 0.1 (0-0.7) k/uL Basophils # 0.0 (0-0.2) k/uL Hypochromasia Marked Anisocytosis Slight PT 11.6 (10.0-12.5) sec INR 1.1 (<1.2) APTT 22.7 (22.0-30.0) sec Sodium 140 (137-145) mmol/L Potassium 4.8 (3.5-5.1) mmol/L Chloride 93 L (98-107) mmol/L Carbon Dioxide 35 H (22-30) mmol/L Anion Gap 12 mmol/L BUN 23 H (7-17) mg/dL Creatinine 0.97 (0.52-1.04) mg/dL Est GFR (CKD-EPI)AfAm 68 (>60 ml/min/1.73 sqM) Est GFR (CKD-EPI)NonAf 59 (>60 ml/min/1.73 sqM) Glucose 233 H (74-99) mg/dL Plasma Lactic Acid Kilo (0.7-2.0) mmol/L Calcium 8.3 L (8.4-10.2) mg/dL Phosphorus 4.8 H (2.5-4.5) mg/dL Magnesium 1.3 L (1.6-2.3) mg/dL Total Bilirubin 1.0 (0.2-1.3) mg/dL AST 31 (14-36) U/L ALT 16 (4-34) U/L Alkaline Phosphatase 71 (38-126) U/L Creatine Kinase 67 (30-135) U/L Total Protein 7.0 (6.3-8.2) g/dL Albumin 3.4 L (3.5-5.0) g/dL 03/29/25 Range/Units 11:57 WBC (3.8-10.6) k/uL RBC (3.80-5.40) m/uL Hgb (11.4-16.0) gm/dL Hct (34.0-46.0) % MCV (80.0-100.0) fL MCH (25.0-35.0) pg MCHC (31.0-37.0) g/dL RDW (11.5-15.5) % Plt Count (150-450) k/uL MPV Neutrophils % % Lymphocytes % % Monocytes % % Eosinophils % % Basophils % % Neutrophils # (1.3-7.7) k/uL Lymphocytes # (1.0-4.8) k/uL Monocytes # (0-1.0) k/uL Eosinophils # (0-0.7) k/uL Basophils # (0-0.2) k/uL Hypochromasia Anisocytosis PT (10.0-12.5) sec INR (<1.2) APTT (22.0-30.0) sec Sodium (137-145) mmol/L Potassium (3.5-5.1) mmol/L Chloride (98-107) mmol/L Carbon Dioxide (22-30) mmol/L Anion Gap mmol/L BUN (7-17) mg/dL Creatinine (0.52-1.04) mg/dL Est GFR (CKD-EPI)AfAm (>60 ml/min/1.73 sqM) Est GFR (CKD-EPI)NonAf (>60 ml/min/1.73 sqM) Glucose (74-99) mg/dL Plasma Lactic Acid Kilo 2.2 H* (0.7-2.0) mmol/L Calcium (8.4-10.2) mg/dL Phosphorus (2.5-4.5) mg/dL Magnesium (1.6-2.3) mg/dL Total Bilirubin (0.2-1.3) mg/dL AST (14-36) U/L ALT (4-34) U/L Alkaline Phosphatase (38-126) U/L Creatine Kinase (30-135) U/L Total Protein (6.3-8.2) g/dL Albumin (3.5-5.0) g/dL - Radiology Data Radiology results: report reviewed, image reviewed Disposition Clinical Impression: Right leg pain, Weakness, Unable to ambulate, Hypomagnesemia Disposition: ADMITTED IP TO THIS HOSP
[2024-10-23] MEDS ORDERED: ONDANSETRON 4 MG/2 ML VIAL IVP PRN (12:12)
[2024-10-23] MEDS ORDERED: MORPHINE SULFATE 4 MG/ML SYRINGE IV PRN (12:12)
[2024-10-23] MEDS ORDERED: NALOXONE 0.4 MG/ML 1 ML VIAL IV PRN (12:12)
[2024-10-23] MEDS: ACETAMINOPHEN TAB 325 MG TAB PO PRN (12:24)
[2024-10-23 12:25] LABS: Anisocytosis Slight; Basophils % (A) 0 %; Eosinophils # (A) 0.1 k/uL (0-0.7); Eosinophils % (A) 1 %; HCT 36.3 % (34.0-46.0); HGB 10.7 gm/dL (11.4-16.0); Hypochromasia Marked; Lymphocytes # (A) 1.8 k/uL (1.0-4.8); Lymphocytes % (A) 19 %; MCH 26.5 pg (25.0-35.0); MCHC 29.5 g/dL (31.0-37.0); Mean Platelet Volume 8.6; Monocytes # (A) 0.7 k/uL (0-1.0); Monocytes % (A) 7 %; Neutrophils # (A) 6.8 k/uL (1.3-7.7); Neutrophils % (A) 72 %; Platelet Count 258 k/uL (150-450); RBC 4.03 m/uL (3.80-5.40); RDW 18.4 % (11.5-15.5); WBC 9.5 k/uL (3.8-10.6)
[2024-10-23] MEDS: ACETAMINOPHEN TAB 500 MG TAB PO STA (12:25)
[2024-10-23 12:33] LABS: INR 1.1 (<1.2); Partial Thromboplastin Time 22.7 sec (22.0-30.0); Prothrombin Time 11.6 sec (10.0-12.5)
--- NOTE | 2024-10-23 12:35 | US ---
EXAMINATION TYPE: US venous doppler duplex LE RT DATE OF EXAM: 10/23/2024 12:21 PM COMPARISON: US CLINICAL INDICATION: Female, 69 years old with history of Leg pain; Right leg pain, Pain TECHNIQUE: The lower extremity deep venous system is examined utilizing real time linear array sonog lorne with graded compression, color doppler sonography, and spectral doppler. SIDE PERFORMED: Right FINDINGS: VESSELS IMAGED: Common Femoral Vein Deep Femoral Vein Greater Saphenous Vein * Femoral Vein Popliteal Vein Small Saphenous Vein * Proximal Calf Veins (* superficial vessels) The deep venous system of the right lower extremity from the common femoral vein to the proximal calf veins is patent and compressible with augmentable flow with normal waveforms. IMPRESSION: No evidence of right lower extremity DVT from the common femoral vein to the proximal calf veins [facility], Workstation: [facility] 10/23/2024 12:33 PM
[2024-10-23 12:50] LABS: ALT 16 U/L (4-34); AST 31 U/L (14-36); African American GFR (CKD) 68 (>60 ml/min/1.73 sqM); Albumin 3.4 g/dL (3.5-5.0); Alkaline Phosphatase 71 U/L (38-126); Anion Gap 12 mmol/L; Blood Urea Nitrogen 23 mg/dL (7-17); Calcium 8.3 mg/dL (8.4-10.2); Carbon Dioxide 35 mmol/L (22-30); Chloride 93 mmol/L (98-107); Creatine Kinase 67 U/L (30-135); Glucose 233 mg/dL (74-99); Magnesium 1.3 mg/dL (1.6-2.3); Non-African American GFR(CKD) 59 (>60 ml/min/1.73 sqM); Phosphorus 4.8 mg/dL (2.5-4.5); Potassium 4.8 mmol/L (3.5-5.1); Sodium 140 mmol/L (137-145)
[2024-10-23 12:50] LABS: Appearance,Urine Clear (Clear); Bilirubin,Urine Negative (Negative); Blood,Urine Negative (Negative); Color,Urine Colorless; Glucose,Urine (UA) 4+ (Negative); Ketones,Urine 1+ (Negative); Leukocyte Esterase,Urine Negative (Negative); Nitrite,Urine Negative (Negative); PH, Urine 7.5 (5.0-8.0); Protein,Urine Negative (Negative); Specific Gravity,Urine 1.019 (1.001-1.035); Urobilinogen,Urine <2.0 mg/dL (<2.0)
[2024-10-23] MEDS: MAGNESIUM SULFATE-D5W PMX 1 GM in DEXTROSE/WATER 1 100ML.BAG IVPB SCH (13:45)
[2024-10-23] MEDS: SODIUM CHLORIDE 0.9% 500 ML 500 ML IV ONE (13:46)
[2024-10-23] MEDS: MAGNESIUM OXIDE 400 MG TAB PO STA (13:46)
--- NOTE | 2024-10-23 13:57 | CT ---
EXAMINATION TYPE: CT lumbar spine wo con DATE OF EXAM: 10/23/2024 1:19 PM COMPARISON: 04/26/2020 CLINICAL INDICATION: Female, 69 years old with history of Leg pain and weakness; PHH, Lower back/leg pain and weakness TECHNIQUE: Unenhanced CT of the lumbar spine was performed. Bone and soft tissue window settings are submitted as well as coronal and sagittal reconstructions. CT DLP: 1442.[address] CTDI: mGy Automated exposure control for dose reduction was used. FINDINGS: The lumbar vertebral segments are normal in height and there is no acute fracture. There are postsurgical changes of wide laminectomy L2-3 through L4-5. There is a slight anterolisthesis of L4 on L5. There is progressive marked multilevel degenerative disc disease including bony fusion of L3 and L4 a nd partial bony fusion of L5 and S1. There is persistent marked degenerative disease of the L2-3 and L4-5 levels where there is vacuum phenomena and spondylosis. There is moderate bony neural foraminal encroachment at the L2-3 level on the right and at the L5-S1 level on the left. Secondary to circumferential disc bulge, facet hypertrophy and mild thickening of ligamentum flavum, there is mild stable spinal stenosis at the L2-3 level. There is a stable far right lateral disc herniation of the L4-5 disc, severely compromising the right L4-5 neural foramina. There is stable left lateral broad-based disc protrusion severely compromising the left L4-5 neural foramina.. IMPRESSION: 1. Postsurgical changes of wide laminectomy from L2-3 through L4-5. 2. Slight anterolisthesis of L4 on L5. 3. Progressive and severe multilevel degenerative disease as described above. There is bony fusion of L3-4 and L5-S1 4. Lateral disc protrusion/herniations at the L4-5 disc, right greater than left with severe L4-5 kay roforamina bilaterally. 5. Stable mild L2-3 spinal stenosis. [facility], , 10/23/2024 1:54 PM
[2024-10-23] MEDS ORDERED: ACETAMINOPHEN TAB 500 MG TAB PO PRN (14:08)
[2024-10-23] MEDS ORDERED: FUROSEMIDE 20 MG TAB PO PRN (14:08)
[2024-10-23 17:41] LABS: Glucose,Whole Blood 231 mg/dL (70-110)
[2024-10-23] MEDS ORDERED: DEXTROSE 50% SYRINGE 50 ML IVP PRN ×2 (17:45)
[2024-10-23] MEDS: Insulin Aspart (For Pump) 100 UNIT/ML VIAL SQ-PUMP SCH (18:29)
[2024-10-23 20:43] LABS: Glucose,Whole Blood 278 mg/dL (70-110)
[2024-10-23] MEDS: methocarbamoL 500 MG TAB PO SCH (21:13)
[2024-10-23] MEDS: ATORVASTATIN 40 MG TAB PO SCH (21:13)
[2024-10-23] MEDS: APIXABAN 5 MG TAB PO SCH (21:13)
[2024-10-23] MEDS: FAMOTIDINE 20 MG TAB PO SCH (21:13)
[2024-10-23] MEDS: METOPROLOL TARTRATE 25 MG TAB PO SCH (21:13)
[2024-10-23] MEDS: HYDROcodone/APAP 5-325MG 1 EACH TAB PO PRN (21:13)
[2024-10-23] MEDS: INSULIN LISPRO (HumaLOG) 100 UNIT/ML 10 mL VL SQ SCH (21:13)
[2024-10-24 06:31] LABS: Glucose,Whole Blood 178 mg/dL (70-110)
[2024-10-24] MEDS: LEVOTHYROXINE 112 MCG TAB PO SCH (06:47)
[2024-10-24] MEDS: LOSARTAN 50 MG TAB PO SCH (09:35)
[2024-10-24] MEDS: DAPAGLIFLOZIN PROPANEDIOL 10 MG TABLET PO SCH (09:35)
[2024-10-24] MEDS: ASPIRIN 81 MG PO SCH (09:35)
[2024-10-24] MEDS: PANTOPRAZOLE 40 MG/10 ML VIAL IV SCH (09:36)
[2024-10-24 11:24] LABS: Glucose,Whole Blood 315 mg/dL (70-110)
--- NOTE | 2024-10-24 14:33 | P.HPIM ---
History of Present Illness H&P Date: 10/23/24 Chief Complaint: weakness in the right lower extremity/ unable to walk HISTORY OF PRESENT ILLNESS: This is a 69-year-old female with a previous medical history sig nificant for hypertension and hypertensive cardiovascular disease, hyperlipidemia, hypothyroidism, chronic gastroesophageal reflux disease with esophagitis, type 1 diabetes mellitus currently on insulin pump, vitamin D deficiency, diabetic neuropathy, patient also had history of spondylosis of the lumbar spine status post lumbar laminectomy back in 07/01/2022 followed by a wound dehiscence at the [facility] of the lumbar area and she ended up going back for another surgical intervention 2022 followed by a wound care of the surgical site, patient recovered very well from that, patient apparently was recently hospitalized at [facility] for urine from August 21, 2024 till August 27, 2024 after she was admitted for what appears to be an unstable patient myocardial infarction status post left heart catheterization that showed evidence of 20 to 30% stenosis of the left main artery, 40 to 50% stenosis of the LAD where she had a previous stent, and 99% of the RCA with collaterals from left to right, no intervention was done, patient also did have acute blood loss anemia status post 1 unit of packed red blood cells procedure was seen in consultation by general surgery who is recommended not to do any intervention at this point in time, patient suffers from severe weakness in the right lower extremity, was seen and evaluated by physical therapy ended up going to [facility] for physical therapy rehabilitation, patient just left [facility] on Friday she tried to go home and she could not get into the house, EMS was called and the patient was brought into the ER and she was given the option of staying in the hospital or going home she elected to go back home to try to get into the house, finally she managed to get into the house, but she laid in bed and she could not get up to go to the bathroom she had diapers on, she called me and stated that she is not able to get out of the bed and she is not able to go to the bathroom I advised her to call 911 and come to the ER for evaluation, had a CT scan of the lumbar spine that showed significant changes and surgical changes of the lumbar spine, with severe spinal stenosis bilaterally at the level of L4-L5 and L5 and S1 with a stable spinal stenosis L2-L3 with progressive degenerative disc disease as well therefore the patient was admitted to hospital for evaluation by physical therapy and Occupational Therapy, will consult spine surgery further recommendation and how to progress from here REVIEW OF SYSTEMS: Constitutional: No documented fever, no chills, no night sweats. significant weight gain No weakness, fatigue or lethargy. No daytime sleepiness. HEENT: No headache. No blurred vision or double vision, no loss of vision. No loss of Hearing, no ringing in the ears, no dizziness. No nasal drainage or congestion. No epistaxis. No sore throat. Lungs: positive for shortness of breath, occasional cough, no sputum production. No wheezing. Reports dyspnea with activity, positive for orthopneam and PND Cardiovascular: No chest pain, positive for mild lower extremity edema. positive for palpitations. no paroxysmal nocturnal dyspnea. no orthopnea. No lightheadedness or dizziness. No syncopal episodes. Abdominal: Reports no abdominal pain. positive for nausea, vomiting. No diarrhea. No constipation. No bloody or tarry stools reports loss of appetite. Genitourinary: No dysuria, increased frequency, urgency. No urinary retention. Musculoskeletal: No myalgias. positive for muscle weakness, positive for gait dysfunction, no frequent falls. positive for back pain. No neck pain. Integumentary: No wounds, no lesions. No rash or pruritus. Positive for bruising to bilateral lower extremities. No change in hair or nails. Neurologic: No aphasia. No facial droop. No change in mentation. No head injury. No headache. Right lower extremity weakness, positive for paresthesia. Psychiatric: Positive depression. No anxiety. No mood swings. Endocrine: No abnormal blood sugars. No weight change. PAST MEDICAL HISTORY: Hypertension and hypertensive cardiovascular disease. Hyperlipidemia. Diabetes mellitus type 1. GERD with esophagitis Hiatal hernia. Vitamin D deficiency. Obesity with possible obstructive sleep apnea and obesity hypoventilation syndrome Chronic hypoxemic respiratory failure requiring 3 L cannula Spondylosis of the lumbar spine status post laminectomy on 07/01/2022 followed by wound dehiscence with revision on July at the lumbar area at the [facility] Kidney stones Hypothyroidism. PAST SURGICAL HISTORY: Total abdominal hysterectomy and bilateral sopping oophorectomy due to dysfunctional uterine bleeding. Cataract surgery 2. Colonoscopy 2014. Left arthroscopic knee surgery. Right 4 toes amputation due to lawnmower accident. Kidney stone surgery with J stent placement and removal. Lumbar laminectomy 07/01/2022. Wound dehiscence with revision of the lumbar area generally fourth 2022 at the [facility] SOCIAL HISTORY: Patient is a lifelong nonsmoker, she denies any alcohol ingestion, no drug use or abuse. She lives with her uses a walker for ambulation. FAMILY HISTORY: Father at age of 70 from CHF and [place] mother is 90-year-old, patient has one sister 66-year-old alive was sister is 66 with GERD, patient had one son 48-year-old okay and second son live 24 hours, patient had one daughter who live 24 hours, and patient has one adopted child both children are healthy. PHYSICAL EXAMINATION: General: this is a 69-year-old female laying down in bed in no apparent distress HEENT: Head is atraumatic, normocephalic, pupils were equal round reactive to light and recommendation, extraocular muscle movement were intact, sclera nonicteric, conjunctivae were pale, mucous membranes of the mouth are somewhat dry. Neck: Supple, no JVP, normal carotid upstroke bilaterally, no lymphadenopathy. Chest: Decreased breath sounds at the bases, few rhonchi, no expiratory wheezes, no chest wall tenderness, no intercostal retractions Heart: First heart sound is normal, second heart sound is normal there is systolic ejection murmur 2/6 located in the left sternal border Abdomen: Soft, nontender, nondistended, positive bowel sounds. Extremities: There is +1 edema no calf tenderness DP +2 bilaterally, there is 4 toes amputation on the right side Neurologic examination: Patient is awake alert and oriented X 3, cranial nerves II-12 appear grossly intact, muscle power were 5 out of 5 in upper extremities, 1/5 in the right lower extremity, and 2 out of 5 in the left lower extremity ASSESSMENT AND PLAN: 1. Progressive degenerative disc disease of the lumbar spine with severe spinal stenosis at L4-L5 and L5-S1 right greater than left due to disc herniations at these levels. Continue current pain management, consult spine surgery for fur ther recommendation, will follow-up with the patient very closely, physical therapy and Occupational Therapy will be evaluating the patient social sciences research scientist consultation for discharge planning as the patient is not able to care for herself at this time, she is not able to ambulate. 2. Coronary artery disease status post PCI of the LAD with recent left heart catheterization that was done July 2024 that showed evidence of left main disease 20 to 30%, LAD 4050% stenosis where the stent is and RCA 99% stenosis with collaterals from left to right. Continue patient on metoprolol 25 mg orally twice every day, aspirin 81 mg once every day, also continue patient on atorvastatin 40 mg orally once every day, keep LDL 55-70 3. History of pulmonary medicine. Continue patient on Eliquis 5 mg orally twice every day for life 4. Paroxysmal atrial fibrillation/flutter. Continue patient on metoprolol 25 mg orally twice every day, continue Eliquis 5 mg orally twice every day for life 5. Hypertension and hypertensive cardiovascular disease. Continue patient on metoprolol 25 mg orally twice every day, losartan 100 mg orally once every day, monitor the patient blood pressure very closely. 6. Hyperlipidemia. continue atorvastatin 40 mg orally once every day, monitor the patient the benefit, keep LDL 55-70. 7. Hypothyroidism. Continue patient on Synthroid 112 g orally once every day monitor TSH and free T4. 8. Diabetes mellitus type 1. Discontinue insulin pump, continue patient on sliding scale insulin for now. 9. GERD with esophagitis and had a hernia. Continue patient on Protonix 40 mg once every day. 10. Obesity with obstructive sleep apnea and possible obesity hypoventilation syndrome patient will need to have a sleep study as an outpatient. 11. Vitamin D deficiency. Continue vitamin D3 2000 units once every day. 12. History of kidney stones. stable at this time 13. DVT prophylaxis. Continue Eliquis 5 mg orally twice every day 14. GI prophylaxis. Continue Protonix 40 mg orally once every day 15. Admitted to inpatient. Estimate a length of stay 2 midnights. 16. Full code Past Medical History Past Medical History: Diabetes Mellitus, Hypertension, Myocardial Infarction ([place]) Additional Past Medical History / Comment(s): hypothyroid, kidney stone, GLUCOMA, hx of PE Last Myocardial Infarction Date:: 2022 History of Any Multi-Drug Resistant Organisms: None Reported Past Surgical History: Back Surgery, Hysterectomy Additional Past Surgical History / Comment(s): kidney stones removed and stent CATARACTS REMOVED AND STENT PUT IN FOR GLUCOMA. 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, heart stent 2021 Past Anesthesia/Blood Transfusion Reactions: Previous Problems w/ Anesthesia, Postoperative Nausea & Vomiting (PONV) Additional Past Anesthesia/Blood Transfusion Reaction / Comment(s): no blood trasnfusion reaction after 1 unit of PRBC Past Psychological History: No Psychological Hx Reported Smoking Status: Never smoker Past Alcohol Use History: None Reported Past Drug Use History: None Reported - Past Family History Mother Family Medical History: No Reported History Father Additional Family Medical History / Comment(s): Heart history Medications and Allergies Home Medications Medication Instructions Recorded Confirmed Type Levothyroxine Sodium [Synthroid] 112 mcg PO DAILY 05/16/19 10/23/24 History Losartan Potassium 100 mg PO DAILY 05/16/19 10/23/24 History Famotidine [Pepcid] 20 mg PO BID 04/26/20 10/23/24 History Acetaminophen Tab [Tylenol] 1,000 mg PO Q6HR PRN 08/21/24 10/23/24 History Apixaban [Eliquis] 5 mg PO BID 08/21/24 10/23/24 History Atorvastatin [Lipitor] 40 mg PO HS 08/21/24 10/23/24 History Empagliflozin [Jardiance] 25 mg PO DAILY 08/21/24 10/23/24 History Furosemide [Lasix] 20 mg PO DAILY PRN 08/21/24 10/23/24 History methocarbamoL [Robaxin] 500 mg PO BID 08/21/24 10/23/24 History Aspirin 81 mg PO DAILY tab 08/27/24 10/23/24 Rx Insulin Aspart (For Pump) [NovoLOG 0.01 unit SQ-PUMP CONTINUOUS 10/23/24 10/23/24 History (For Pump)] Metoprolol Tartrate [Lopressor] 25 mg PO BID 10/23/24 10/23/24 History Allergies Allergy/AdvReac Type Severity Reaction Status Date / Time No Known Allergies Allergy Verified 08/21/24 17:58 Physical Exam Vitals: Vital Signs Temp Pulse Pulse Resp BP BP Pulse Ox 10/24/24 09:35 17 10/24/24 07:08 98.2 F 89 17 94/62 100 10/24/24 01:00 98.2 F 83 18 117/63 96 10/23/24 19:00 97.6 F 99 18 126/63 99 10/23/24 14:00 97.7 F 79 17 134/84 94 L 10/23/24 13:34 75 20 130/68 98 03/29/25 12:48 97 20 131/46 100 10/23/24 12:38 85 16 135/87 98 Intake and Output 10/23/24 10/24/24 10/24/24 22:59 06:59 14:59 Intake Total 100 240 Output Total 800 Balance 100 -560 Intake: Intake, IV Titration 100 Amount Magnesium Sulfate-D5w Pmx 100 1 gm In Dextrose/Water 1 100ml.bag @ 100 mls/hr IVPB Q1H [facility] Rx#: [id number] Oral 240 Output: Urine 800 Straight 400 Other: # Bowel Movements 1 Weight 113.398 kg Results CBC & Chem 7: 10/23/24 11:57 10/23/24 11:57 Labs: Abnormal Lab Results - Last 24 Hours (Table) 10/23/24 10/23/24 10/23/24 Range/Units 11:57 11:57 11:57 Hgb 10.7 L (11.4-16.0) gm/dL MCHC 29.5 L (31.0-37.0) g/dL RDW 18.4 H (11.5-15.5) % Chloride 93 L (98-107) mmol/L Carbon Dioxide 35 H (22-30) mmol/L BUN 23 H (7-17) mg/dL Glucose 233 H (74-99) mg/dL POC Glucose (mg/dL) (70-110) mg/dL Plasma Lactic Acid Kilo 2.2 H* (0.7-2.0) mmol/L Calcium 8.3 L (8.4-10.2) mg/dL Phosphorus 4.8 H (2.5-4.5) mg/dL Magnesium 1.3 L (1.6-2.3) mg/dL Albumin 3.4 L (3.5-5.0) g/dL Urine Glucose (UA) (Negative) Urine Ketones (Negative) 10/23/24 10/23/24 10/23/24 Range/Units 12:37 17:39 20:42 Hgb (11.4-16.0) gm/dL MCHC (31.0-37.0) g/dL RDW (11.5-15.5) % Chloride (98-107) mmol/L Carbon Dioxide (22-30) mmol/L BUN (7-17) mg/dL Glucose (74-99) mg/dL POC Glucose (mg/dL) 231 H 278 H (70-110) mg/dL Plasma Lactic Acid Kilo (0.7-2.0) mmol/L Calcium (8.4-10.2) mg/dL Phosphorus (2.5-4.5) mg/dL Magnesium (1.6-2.3) mg/dL Albumin (3.5-5.0) g/dL Urine Glucose (UA) 4+ H (Negative) Urine Ketones 1+ H (Negative) 10/24/24 10/24/24 Range/Units 06:30 11:23 Hgb (11.4-16.0) gm/dL MCHC (31.0-37.0) g/dL RDW (11.5-15.5) % Chloride (98-107) mmol/L Carbon Dioxide (22-30) mmol/L BUN (7-17) mg/dL Glucose (74-99) mg/dL POC Glucose (mg/dL) 178 H 315 H (70-110) mg/dL Plasma Lactic Acid Kilo (0.7-2.0) mmol/L Calcium (8.4-10.2) mg/dL Phosphorus (2.5-4.5) mg/dL Magnesium (1.6-2.3) mg/dL Albumin (3.5-5.0) g/dL Urine Glucose (UA) (Negative) Urine Ketones (Negative) Thrombosis Risk Factor Assmnt - Choose All That Apply Each Factor Represents 1 point: Medical pt on bed rest, Obesity (BMI >25) Each Risk Factor Represents 3 Points: Age 75 years or older Other congenital or acquired thrombophilia - If yes, enter type in comment: No Thrombosis Risk Factor Assessment Total Risk Factor Score: 5 Thrombosis Risk Factor Assessment Level: High Risk
[2024-10-24 16:27] LABS: Glucose,Whole Blood 188 mg/dL (70-110)
[2024-10-24] MEDS: TAMSULOSIN 0.4 MG CAP.ER.24H PO SCH (17:30)
[2024-10-24 21:10] LABS: Glucose,Whole Blood 186 mg/dL (70-110)
[2024-10-25 06:18] LABS: Glucose,Whole Blood 224 mg/dL (70-110)
[2024-10-25] MEDS: PANTOPRAZOLE 40 MG TABLET PO SCH (06:47)
[2024-10-25 09:25] LABS: ALT 12 U/L (8-44); AST 20 U/L (13-35); Albumin 2.8 g/dL (3.8-4.9); Albumin/Globulin Ratio 0.93 Ratio (1.60-3.17); Alkaline Phosphatase 58 U/L (41-126); BUN/Creat Ratio 16.27 Ratio (12.00-20.00); Blood Urea Nitrogen 17.9 mg/dL (9.0-27.0); Calcium 8.4 mg/dL (8.7-10.3); Carbon Dioxide 32.1 mmol/L (21.6-31.8); Chloride 96 mmol/L (96-109); Glucose 176 mg/dL (70-110); Potassium 3.6 mmol/L (3.5-5.5); Sodium 140 mmol/L (135-145); Total Bilirubin 0.5 mg/dL (0.3-1.2); Total Protein 5.8 g/dL (6.2-8.2)
--- NOTE | 2024-10-25 09:42 | P.PN ---
Subjective Progress Note Date: 10/25/24 HISTORY OF PRESENT ILLNESS: This is a 69-year-old female with a previous medical history signif icant for hypertension and hypertensive cardiovascular disease, hyperlipidemia, hypothyroidism, chronic gastroesophageal reflux disease with esophagitis, type 1 diabetes mellitus currently on insulin pump, vitamin D deficiency, diabetic neuropathy, patient also had history of spondylosis of the lumbar spine status post lumbar laminectomy back in 07/01/2022 followed by a wound dehiscence at the [facility] of the lumbar area and she ended up going back for another surgical intervention 2022 followed by a wound care of the surgical site, patient recovered very well from that, patient apparently was recently hospitalized at [facility] for urine from August 21, 2024 till August 27, 2024 after she was admitted for what appears to be an unstable patient myocardial infarction status post left heart catheterization that showed evidence of 20 to 30% stenosis of the left main artery, 40 to 50% stenosis of the LAD where she had a previous stent, and 99% of the RCA with collaterals from left to right, no intervention was done, patient also did have acute blood loss anemia status post 1 unit of packed red blood cells procedure was seen in consultation by general surgery who is recommended not to do any intervention at this point in time, patient suffers from severe weakness in the right lower extremity, was seen and evaluated by physical therapy ended up going to [facility] for physical therapy rehabilitation, patient just left [facility] on Friday she tr ied to go home and she could not get into the house, EMS was called and the patient was brought into the ER and she was given the option of staying in the hospital or going home she elected to go back home to try to get into the house, finally she managed to get into the house, but she laid in bed and she could not get up to go to the bathroom she had diapers on, she called me and stated that she is not able to get out of the bed and she is not able to go to the bathroom I advised her to call 911 and come to the ER for evaluation, had a CT scan of the lumbar spine that showed significant changes and surgical changes of the lumbar spine, with severe spinal stenosis bilaterally at the level of L4-L5 and L5 and S1 with a stable spinal stenosis L2-L3 with progressive degenerative disc disease as well therefore the patient was admitted to hospital for evaluation by physical therapy and Occupational Therapy, will consult spine surgery further recommendation and how to progress from here 10/24: Patient is laying down in bed in no apparent distress, she slept well last night, she continues to have quite a bit of help, she did have episode of urinary retention yesterday twice, she did have to have a straight cath, last time was about 400 cc of urine, she did have a straight cath, for a 300 mL, she still have about 190 mL and there, we will monitor the patient very closely, we will start the patient on Flomax 0.4 mg once every day, discussed with the nursing staff the need to put a Parker catheterization if her residual volume is greater than 300 at any time patient will be seen and evaluated by spine surgery hopefully in the next 24 hours, I reviewed the result of the CT scan of the lumbar spine with the patient and her at the bedside, awaiting physical therapy evaluation tomorrow morning, patient will definitely need to go to subacute rehabilitation as the patient is not able to move around at all she does have significant weakness in the right lower extremity, await spine surgery evaluation and the recommendation on how to pursue her complex medical care 10/25: Patient is sitting up in bed appears to be generally weak, appears to be pale at this time, she has not been seen by physical therapy yet, she will be seen in consultation by spine surgery for a second opinion about her significant spinal stenosis with right lower extremity weakness, patient will likely require to go to subacute rehabilitation as she is not able to ambulate at this time. REVIEW OF SYSTEMS: Constitutional: No documented fever, no chills, no night sweats. significant weight gain No weakness, fatigue or lethargy. No daytime sleepiness. HEENT: No headache. No blurred vision or double vision, no loss of vision. No loss of Hearing, no ringing in the ears, no dizziness. No nasal drainage or congestion. No epistaxis. No sore throat. Lungs: positive for shortness of breath, occasional cough, no sputum production. No wheezing. Reports dyspnea with activity, positive for orthopneam and PND Cardiovascular: No chest pain, positive for mild lower extremity edema. posit [place] for palpitations. no paroxysmal nocturnal dyspnea. no orthopnea. No lightheadedness or dizziness. No syncopal episodes. Abdominal: Reports no abdominal pain. positive for nausea, vomiting. No diarrhea. No constipation. No bloody or tarry stools reports loss of appetite. Genitourinary: No dysuria, increased frequency, urgency. No urinary retention. Musculoskeletal: No myalgias. positive for muscle weakness, positive for gait dysfunction, no frequent falls. positive for back pain. No neck pain. Integumentary: No wounds, no lesions. No rash or pruritus. Positive for bruising to bilateral lower extremities. No change in hair or nails. Neurologic: No aphasia. No facial droop. No change in mentation. No head injury. No headache. Right lower extremity weakness, positive for paresthesia. Psychiatric: Positive depression. No anxiety. No mood swings. Endocrine: No abnormal blood sugars. No weight change. PHYSICAL EXAMINATION: General: this is a 69-year-old female laying down in bed in no apparent distress HEENT: Head is atraumatic, normocephalic, pupils were equal round reactive to light and recommendation, extraocular muscle movement were intact, sclera nonicteric, conjunctivae were pale, mucous membranes of the mouth are somewhat dry. Neck: Supple, no JVP, normal carotid upstroke bilaterally, no lymphadenopathy. Chest: Decreased breath sounds at the bases, few rhonchi, no expiratory wheezes, no chest wall tenderness, no intercostal retractions Heart: First heart sound is normal, second heart sound is normal there is systolic ejection murmur 2/6 located in the left sternal border Abdomen: Soft, nontender, nondistended, positive bowel sounds. Extremities: There is +1 edema no calf tenderness DP +2 bilaterally, there is 4 toes amputation on the right side Neurologic examination: Patient is awake alert and oriented X 3, cranial nerves II-12 appear grossly intact, muscle power were 5 out of 5 in upper extremities, 1/5 in the right lower extremity, and 2 out of 5 in the left lower extremity ASSESSMENT AND PLAN: 1. Progressive degenerative disc disease of the lumbar spine with severe spinal stenosis at L4-L5 and L5-S1 right greater than left due to disc herniations at these levels. Continue current pain management, consult spine surgery for further recommendation, will follow-up with the patient very closely, physical therapy and Occupational Therapy will be evaluating the patient social worker aide consultation for discharge planning as the patient is not able to care for herself at this time, she is not able to ambulate. 2. Coronary artery disease status post PCI of the LAD with recent left heart catheterization that was done July 2024 that showed evidence of left main disease 20 to 30%, LAD 4050% stenosis where the stent is and RCA 99% stenosis with collaterals from left to right. Continue patient on metoprolol 25 mg orally twice every day, aspirin 81 mg once every day, also continue patient on atorvastatin 40 mg orally once every day, keep LDL 55-70 3. History of pulmonary medicine. Continue patient on Eliquis 5 mg orally twice every day for life 4. Paroxysmal atrial fibrillation/flutter. Continue patient on metoprolol 25 mg orally twice every day, continue Eliquis 5 mg orally twice every day for life 5. Hypertension and hypertensive cardiovascular disease. Continue patient on metoprolol 25 mg orally twice every day, losartan 100 mg orally once every day, monitor the patient blood pressure very closely. 6. Hyperlipidemia. continue atorvastatin 40 mg orally once every day, monitor the patient the benefit, keep LDL 55-70. 7. Hypothyroidism. Continue patient on Synthroid 112 g orally once every day monitor TSH and free T4. 8. Diabetes mellitus type 1. Discontinue insulin pump, continue patient on sliding scale insulin for now. Start the patient on Lantus 22 units at bedtime. 9. GERD with esophagitis and had a hernia. Continue patient on Protonix 40 mg once every day. 10. Obesity with obstructive sleep apnea and possible obesity hypoventilation syndrome patient will need to have a sleep study as an outpatient. 11. Vitamin D deficiency. Continue vitamin D3 2000 units once every day. 12. History of kidney stones. stable at this time 13. DVT prophylaxis. Continue Eliquis 5 mg orally twice every day 14. GI prophylaxis. Continue Protonix 40 mg orally once every day 15. Medical debility. 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
[2024-10-25 10:15] LABS: Basophils # (A) 0.04 X 10*3/uL (0.00-0.10); Basophils % (A) 0.6 %; Eosinophils # (A) 0.24 X 10*3/uL (0.04-0.35); Eosinophils % (A) 3.8 %; HCT 32.2 % (37.2-46.3); HGB 8.8 g/dL (12.0-15.0); Lymphocytes # (A) 1.59 X 10*3/uL (0.90-5.00); Lymphocytes % (A) 25.1 %; MCH 26.4 pg (27.0-32.0); MCHC 27.3 g/dL (32.0-37.0); MCV 96.7 FL (80.0-97.0); Mean Platelet Volume 12.2 FL (9.5-12.2); Monocytes # (A) 0.93 X 10*3/uL (0.20-1.00); Monocytes % (A) 14.7 %; NRBC Per 100 WBC 0 X 10*3/uL (0.00-0.01); Neutrophils # (A) 3.52 X 10*3/uL (1.80-7.70); Neutrophils % (A) 55.6 %; Platelet Count 233 X 10*3/uL (140-440); RBC 3.33 X 10*6/uL (4.10-5.20); RDW 19.8 % (11.5-14.5); WBC 6.33 X 10*3/uL (4.50-10.00)
[2024-10-25 11:52] LABS: Glucose,Whole Blood 224 mg/dL (70-110)
--- NOTE | 2024-10-25 12:57 | P.CNOR ---
History of Present Illness - [facility] Consult date: 10/25/24 Consult reason: low back pain History of present illness: The patient is seen and examined at bedside. Her is present with her. She is a very pleasant 69-year-old female with longstanding history of low back pain. I saw her over 5 years ago for similar issue. At that point she was found to have significant degenerative changes at her lumbar spine but was a questionable candidate for any sort of surgical intervention. She underwent conservative management. She elected to pursue further evaluation and treatment at outside institution. She had another opinion who referred her then to a third surgeon at [facility]. She underwent surgical intervention at her lumbar spine in June of 2022 at [facility].. She does not feel that she made any progress after that procedure. She had wound issues after that procedure and had wound dehiscence and had a second surgery in July 2022. She says that she has continued to have significant problems in her low back. She probably has pain at her lower back but has been developing some increasing symptoms at her right leg over the past several years particularly in the past 7 months. She denies any new injury or trauma. She was in the hospital earlier this year in July for a similar complaint for her back and her legs. She has continued conservative management and was having great difficulty with her mobilization and self-care. She went to [facility] to pursue continued rehabilitation and care. She has been there for the past couple of months. Apparently she was just discharged from [facility] last Friday and was at home for 1 day and had a fall at home. Overall she denies any specific changes. She denies any new weakness or changes in her lower extremities. She uses oxygen. She is not able to get out of bed on her own. She has great difficulty with [place] remobilization on her own and she is not able to do independent transfers. In rehab over the past few months she was able to increase some of the strength in her right lower extremity. Review of Systems As stated per [facility]. She uses chronic oxygen and has for years. She denies any new changes or strength in her lower extremities. She has chronic weakness of the right lower extremity. Her primary issue is her low back pain. She is not able to transfer on her own. Past Medical History Past Medical History: Diabetes Mellitus, Hypertension, Myocardial Infarction ([place] ) Additional Past Medical History / Comment(s): hypothyroid, kidney stone, GLUCOMA, hx of PE Last Myocardial Infarction Date:: 2022 History of Any Multi-Drug Resistant Organisms: None Reported Past Surgical History: Back Surgery, Hysterectomy Additional Past Surgical History / Comment(s): kidney stones removed and stent CATARACTS REMOVED AND STENT PUT IN FOR GLUCOMA. 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, heart stent 2021 Past Anesthesia/Blood Transfusion Reactions: Previous Problems w/ Anesthesia, Postoperative Nausea & Vomiting (PONV) Additional Past Anesthesia/Blood Transfusion Reaction / Comm: no blood trasnf usion reaction after 1 unit of PRBC Past Psychological History: No Psychological Hx Reported Smoking Status: Never smoker Past Alcohol Use History: None Reported Past Drug Use History: None Reported - Past Family History Mother Family Medical History: No Reported History Father Additional Family Medical History / Comment(s): Heart history Medications and Allergies Home Medications Medication Instructions Recorded Confirmed Type Levothyroxine Sodium [Synthroid] 112 mcg PO DAILY 05/16/19 10/23/24 History Losartan Potassium 100 mg PO DAILY 05/16/19 10/23/24 History Famotidine [Pepcid] 20 mg PO BID 04/26/20 10/23/24 History Acetaminophen Tab [Tylenol] 1,000 mg PO Q6HR PRN 08/21/24 10/23/24 History Apixaban [Eliquis] 5 mg PO BID 08/21/24 10/23/24 History Atorvastatin [Lipitor] 40 mg PO HS 08/21/24 10/23/24 History Empagliflozin [Jardiance] 25 mg PO DAILY 08/21/24 10/23/24 History Furosemide [Lasix] 20 mg PO DAILY PRN 08/21/24 10/23/24 History methocarbamoL [Robaxin] 500 mg PO BID 08/21/24 10/23/24 History Aspirin 81 mg PO DAILY tab 08/27/24 10/23/24 Rx Insulin Aspart (For Pump) [NovoLOG 0.01 unit SQ-PUMP CONTINUOUS 10/23/2409/26 History (For Pump)] Metoprolol Tartrate [Lopressor] 25 mg PO BID 10/23/24 10/23/24 History Allergies Allergy/AdvReac Type Severity Reaction Status Date / Time No Known Allergies Allergy Verified 08/21/24 17:58 Physical Examination Osteopathic Statement: *. No significant issues noted on an osteopathic struct ural exam other than those noted in the History and Physical/Consult. - L Spine: dermatomal strength & reflexes right Strength: hip flexion: 4/5 (Her back incision site is clear. It is well-healed. There is no erythema there is no swelling. She has minimal tenderness diffusely in her back. Her lower extremities have somewhat diffuse weakness at her right leg globally with hip flexion knee extension dorsiflexion and plantarflexion at 4/5) Strength: ankle plantar flexion: 4/5 (Her left lower extremity has good strength with dorsiflexion plantarflexion EHL. Her right lower extremity is global weakness. No pain at her hips with internal ex rotation. Calves thighs soft nontender) Results - Labs Labs: Abnormal Lab Results - Last 24 Hours (Table) 10/24/24 10/24/24 10/25/24 Range/Units 16:26 21:08 03:32 RBC 3.33 L (4.10-5.20) X 10*6/uL Hgb 8.8 L (12.0-15.0) g/dL Hct 32.2 L (37.2-46.3) % MCH 26.4 L (27.0-32.0) pg MCHC 27.3 L (32.0-37.0) g/dL RDW 19.8 H (11.5-14.5) % Carbon Dioxide (21.6-31.8) mmol/L Est GFR (CKD-EPI) (>=60) Glucose (70-110) mg/dL POC Glucose (mg/dL) 188 H 186 H (70-110) mg/dL Calcium (8.7-10.3) mg/dL Total Protein (6.2-8.2) g/dL Albumin (3.8-4.9) g/dL Albumin/Globulin Ratio (1.60-3.17) Ratio 10/25/24 10/25/24 10/25/24 Range/Units 03:32 06:15 11:50 RBC (4.10-5.20) X 10*6/uL Hgb (12.0-15.0) g/dL Hct (37.2-46.3) % MCH (27.0-32.0) pg MCHC (32.0-37.0) g/dL RDW (11.5-14.5) % Carbon Dioxide 32.1 H (21.6-31.8) mmol/L Est GFR (CKD-EPI) 54 L (>=60) Glucose 176 H (70-110) mg/dL POC Glucose (mg/dL) 224 H 224 H (70-110) mg/dL Calcium 8.4 L (8.7-10.3) mg/dL Total Protein 5.8 L (6.2-8.2) g/dL Albumin 2.8 L (3.8-4.9) g/dL Albumin/Globulin Ratio 0.93 L (1.60-3.17) Ratio H & H 10/23/24 10/25/24 Range/Units 11:57 03:32 Hgb 10.7 L 8.8 L (11.4-16.0) gm/dL Hct 36.3 32.2 L (34.0-46.0) % Coagulation 10/23/24 Range/Units 11:57 INR 1.1 (<1.2) Result Diagrams: 10/25/24 03:32 10/25/24 03:32 - Diagnostic results CT Scan - lumbar: report reviewed, image reviewed (CT scan of lumbar spine reviewed. Compared to CT scan of lumbar spine from 2020 as well. There is significant disc degeneration and essentially complete disc height loss L3-4 and L5-S1. She has degenerative scoliosis. She has evidence prior laminectomy L3- S1. She has residual foraminal stenosis) Assessment and Plan Assessment: Chronic low back pain History of prior laminectomy decompression at [facility] 2021 Degenerative scoliosis with foraminal stenosis Apparent autofusion L3-4 L5-S1 Inability to ambulate Chronic right lower extremity weakness without new change Limited ability to mobilize independently Recent fall at home Status post prolonged stay at [facility] over the past couple of months Chronic supplemental oxygen dependent Morbid obesity Significant deconditioning Plan: Chronic low back pain History of prior laminectomy decompression at [facility] 2021 Degenerative scoliosis with foraminal stenosis Apparent autofusion L3-4 L5-S1 Inability to ambulate Chronic right lower extremity weakness without new change Limited ability to mobilize independently Recent fall at home Status post prolonged stay at [facility] over the past couple of months Chronic supplemental oxygen dependent Morbid obesity Significant deconditioning The patient has chronic changes at her lumbar spine and has not been having acute decline. She has chronic weakness at her right lower extremity. She has been going through in patient rehab for the past couple months but still has great limitations with her mobility and independent safety. She had a fall at home after just 1 day of being back at home from rehab. I had a long discussion with her in terms of her chronic issues and her symptoms. Years ago we did not recommend surgical intervention but she decided to pursue intervention at [facility]. She has not had good progress. If she is interested in further surgical intervention I suggest that she return to her original spine surgeon at [facility]. For now I think that is best beneficial for her to pursue aggressive conservative care. We will reestablish physical therapy for her here in the hospital. It is okay for her to weight-bear as she tolerates. Will have case management see her for the possibility of placement or at least home health as she will have great difficulty on her own at home We do not have any plans for surgical intervention for her. She could potentially have some benefit with interventional pain management. They would have to do an evaluation especially given her prior surgery and her history of wound dehiscence. The area appears to be clear at this point. She could be a candidate for facet injections with interventional pain management.
[2024-10-25 16:28] LABS: Glucose,Whole Blood 268 mg/dL (70-110)
[2024-10-25 19:55] LABS: Glucose,Whole Blood 205 mg/dL (70-110)
[2024-10-25] MEDS: INSULIN GLARGINE (LANTUS) 100 UNIT/ML SYR SQ SCH (21:08)
[2024-10-26 05:58] LABS: Glucose,Whole Blood 183 mg/dL (70-110)
--- NOTE | 2024-10-26 08:06 | P.PAINPG ---
Subjective Progress Note Date: 10/29/24 Patient had sacroiliac joint injection done yesterday and she continued to have low back pain, patient had lumbar spondylosis with lumbar facet arthropathy, and lumbar degenerative disc disease, lumbar radiculopathy, right sacroiliitis, will be more beneficial to the patient to have caudal epidural steroid injection, in the future if she continues to have pain, pain we can schedule her for diagnostic medial branch block lumbar area as an outpatient Objective - Vital Signs Vital signs: Vital Signs Temp 98.3 F 10/26/24 06:54 Pulse 91 10/26/24 06:54 Resp 18 10/26/24 06:54 BP 104/43 10/26/24 06:54 Pulse Ox 100 10/26/24 06:54 FiO2 Intake & Output 10/25/24 10/26/24 10/26/24 18:59 06:59 18:59 Output Total 250 Balance -250 Output: Urine 250 Other: Voiding Method Bedside Commode # Voids 2 1 - Labs CBC & Chem 7: 10/29/24 05:43 10/29/24 05:43 Labs: Abnormal Lab Results - Last 24 Hours (Table) 10/25/24 10/25/24 10/25/24 Range/Units 03:32 03:32 11:50 RBC 3.33 L (4.10-5.20) X 10*6/uL Hgb 8.8 L (12.0-15.0) g/dL Hct 32.2 L (37.2-46.3) % MCH 26.4 L (27.0-32.0) pg MCHC 27.3 L (32.0-37.0) g/dL RDW 19.8 H (11.5-14.5) % Carbon Dioxide 32.1 H (21.6-31.8) mmol/L Est GFR (CKD-EPI) 54 L (>=60) Glucose 176 H (70-110) mg/dL POC Glucose (mg/dL) 224 H (70-110) mg/dL Calcium 8.4 L (8.7-10.3) mg/dL Total Protein 5.8 L (6.2-8.2) g/dL Albumin 2.8 L (3.8-4.9) g/dL Albumin/Globulin Ratio 0.93 L (1.60-3.17) Ratio 10/25/24 10/25/24 10/26/24 Range/Units 16:26 19:53 05:56 RBC (4.10-5.20) X 10*6/uL Hgb (12.0-15.0) g/dL Hct (37.2-46.3) % MCH (27.0-32.0) pg MCHC (32.0-37.0) g/dL RDW (11.5-14.5) % Carbon Dioxide (21.6-31.8) mmol/L Est GFR (CKD-EPI) (>=60) Glucose (70-110) mg/dL POC Glucose (mg/dL) 268 H 205 H 183 H (70-110) mg/dL Calcium (8.7-10.3) mg/dL Total Protein (6.2-8.2) g/dL Albumin (3.8-4.9) g/dL Albumin/Globulin Ratio (1.60-3.17) Ratio PQRS Measure Charge Sheet Comment: HISTORY OF PRESENT ILLNESS: A 69 yr old inpatient female as a referral from Dr Pete presents today w severe acute LBP secondary to radiculopathy, spondylosis and facet arthropathy without myelopathy for evaluation. Pt states pain level is provoked at 9 /10 in intensity, constant, localized in the lumbar spine, predominantly axial, sharp in character w occasional shooting pain towards the L & R of midline. Pain is provoked by twisting, walking/ standing for periods > 15 min. Pain is alleviated by medications, manual massage, repositioning and rest . PMH: OA, NIDDM II, HTN, [place] (2022), Hypothyroidism, Glaucoma, Hx of PE PSH: L3-S1 Laminectomy, Hysterectomy, Lithotripsy, BL Cataract Extraction & Stents, R Great Toe Amputation, Cardiac Stent (2021) SH: Negative x3 FH: Fa- CAD All: See list Meds: See list incl Roslyn 5/325mg q4h prn, MS 4mg IVP q4h prn, ASA QD REVIEW OF ORGAN SYSTEMS: CONSTITUTIONAL: No fevers or chills. No recent weight loss. NEUROLOGICAL: + numbness and tingling along the distal extremities. No seizure disorders or headaches. MUSCULOSKELETAL: + pain PSYCHIATRIC: Denies current depression or suicidal thoughts. Physical Examinations : Constitutional : Cooperative , not in acute distress . Neurologic : Cranial nerve II to XII intact. No focal neur ological deficits. Psychiatric : alert & oriented x 3. Matching mood & appropriate affect. Judgment & insight intact. Musculoskeletal : Cervical Spine Motor strength in the deltoid and bic eps: Normal right side. Normal Left side Motor strength biceps and the wrist extensors: Normal right side . Normal left side Motor strength in the triceps muscle: Normal right side. Normal left side Deep tendon reflexes: Normal at the biceps. Normal at Brachioradialis. Normal at triceps Vertebral body tenderness to deep palp ation over Cervical facet loading test: positive bilaterally Spurling test: positive bilaterally Neck distraction test: positive bilaterally James sign: positive bilaterally Lumbar spine Motor strength lower extremities ,thigh and legs 5/5 Right side , 5/5 Left side Deep tendon reflexes : Normal Knee Jerk. Normal Ankle Jerk Vertebral body tenderness over Marc Test positive Lumbar facet Loading Test: positive Right / positive Left L1-L2/ L2- L3 Range of motion of the lumbar spine Flexion 30 degrees, extension 10 degrees Straight Leg Raise test: Left/ Right positive at degrees Aly test: positive right / positive left. Severe tenderness over the Sacroiliac joint on the Right / Left sides Gaenslen test: positive bilaterally Seated flexion test: positive bilaterally. Sacral spine : Severe tenderness over the Sacroiliac joint: right side / left side Range of motion: Flexion of the lumbar spine <60 degrees Range of motion: Extension of the lumbar spine <20 degrees Gaenslen's Test positive Aly test: positive right side / left side Thigh Thrust Test Sacral Thrust Test Imaging: CT non contrast Lumbar spine reviewed Assessment/ Plan : L3-L4/ L5-S1 radiculopathy, L3-S1 laminectomy syndrome, Scoliosis, Hx of wound dehiscence Recommendation of BL MBB L1-L2/ L2-L3 #1. Risks, benefits of procedure discussed and patient verbalized understanding. Admits to anti- coagulant use or medical history of diabetes. Protocol for discontinuation/ continuation of medications sarah procedure discussed. Minimal anesthesia provided, if clinically indicated, consisting of Versed and Fentanyl. All questions answered. I have spent greater than 30 minutes on patient care today. Dr Muir was available by phone for the evaluation of this patient. The time was used to review the medical records including relevant urine studies and Prescription history (MAPs), review of the available imaging, evaluation and examination of the patient, coordination of care with the medical staff and if applicable referring physicians, as well as creation of the medical record - Pain Location Generalized Non-Pharmacological Interventions: Position/Reposition Pharmacological Interventions: Discuss Pain Med Options, PRN Medication PQRS Narrative: Smoking Status Never smoker Blood Pressure [Left Arm] 104/43 Blood Pressure 130/68 Pain Intensity [Generalized] 6 Pain Intensity 6 Pain Scale Used Non Verbal Pain Indicator Scale Used Numeric (1 - 10) Home Medications: Ambulatory Orders Levothyroxine Sodium [Synthroid] 112 mcg PO DAILY 05/16/19 Losartan Potassium 100 mg PO DAILY 05/16/19 Famotidine [Pepcid] 20 mg PO BID 04/26/20 Acetaminophen Tab [Tylenol] 1,000 mg PO Q6HR PRN 08/21/24 Apixaban [Eliquis] 5 mg PO BID 08/21/24 Atorvastatin [Lipitor] 40 mg PO HS 08/21/24 Empagliflozin [Jardiance] 25 mg PO DAILY 08/21/24 Furosemide [Lasix] 20 mg PO DAILY PRN 08/21/24 methocarbamoL [Robaxin] 500 mg PO BID 08/21/24 Aspirin 81 mg PO DAILY tab 08/27/24 Metoprolol Tartrate [Lopressor] 25 mg PO BID 10/23/24 HYDROcodone/APAP 5-325MG [Roslyn 5-325] 1 each PO Q4HR PRN #18 tab 10/26/24 Pantoprazole [Protonix] 40 mg PO AC-BRKFST tab 10/26/24 Tamsulosin [Flomax] 0.4 mg PO PC-BRKFST cap 10/26/24 Cephalexin [Keflex] 500 mg PO Q8HR 5 Days #15 cap 10/29/24 INSULIN LISPRO (HumaLOG) [HumaLOG] 0 unit SQ ACHS each 10/29/24 Insulin Glargine (Lantus) [Lantus Vial] 24 unit SQ HS each 10/29/24 Controlled Substance Measures - Controlled Substance Measures Is patient prescribed a controlled substance at discharge?: No
--- NOTE | 2024-10-26 08:44 | P.PN ---
Progress Note - Text Progress Note Date: 10/26/24 The patient is seen and examined at bedside. She does not have any new complaints. She says she was able to get up out of bed yesterday with some assistance and get to the bathroom adequately. She denies any new weakness in her lower extremities or any new pains. On exam she is afebrile she has stable vital signs She is obese she is laying in bed she is comfortable and talkative Her lower extremities have no new changes in her strength or motion. She has some generalized weakness of the right leg which is chronic for her Assessment and plan Acute on chronic low back pain Chronic lower extremity weakness on the right Chronic debility and deconditioning History of prior decompression at outside institution At this point I do not have any plans for surgical intervention for the patient. I discussed this again with her at length today. She has chronic changes at her low back and with her lower extremities. Her primary issue is that of back pain. Some of the pain generator may be the facet joints at her bilateral lower lumbar spine and we have had pain management see her for the possibility of facet injections with possible ablations. They discussed this with her today and she is interested in proceeding with this. She will continue with interventional pain management. She is strongly encouraged to continue her mobilization and ambulation and strengthening and conditioning. I discussed this with her at length. She seems to understand. We can see her on an as-needed basis.
--- NOTE | 2024-10-26 10:33 | P.PN ---
Subjective Progress Note Date: 10/26/24 HISTORY OF PRESENT ILLNESS: This is a 69-year-old female with a previous medical history signif icant for hypertension and hypertensive cardiovascular disease, hyperlipidemia, hypothyroidism, chronic gastroesophageal reflux disease with esophagitis, type 1 diabetes mellitus currently on insulin pump, vitamin D deficiency, diabetic neuropathy, patient also had history of spondylosis of the lumbar spine status post lumbar laminectomy back in 07/01/2022 followed by a wound dehiscence at the [facility] of the lumbar area and she ended up going back for another surgical intervention 2022 followed by a wound care of the surgical site, patient recovered very well from that, patient apparently was recently hospitalized at [facility] for urine from August 21, 2024 till August 27, 2024 after she was admitted for what appears to be an unstable patient myocardial infarction status post left heart catheterization that showed evidence of 20 to 30% stenosis of the left main artery, 40 to 50% stenosis of the LAD where she had a previous stent, and 99% of the RCA with collaterals from left to right, no intervention was done, patient also did have acute blood loss anemia status post 1 unit of packed red blood cells procedure was seen in consultation by general surgery who is recommended not to do any intervention at this point in time, patient suffers from severe weakness in the right lower extremity, was seen and evaluated by physical therapy ended up going to [facility] for physical therapy rehabilitation, patient just left [facility] on Friday she tr ied to go home and she could not get into the house, EMS was called and the patient was brought into the ER and she was given the option of staying in the hospital or going home she elected to go back home to try to get into the house, finally she managed to get into the house, but she laid in bed and she could not get up to go to the bathroom she had diapers on, she called me and stated that she is not able to get out of the bed and she is not able to go to the bathroom I advised her to call 911 and come to the ER for evaluation, had a CT scan of the lumbar spine that showed significant changes and surgical changes of the lumbar spine, with severe spinal stenosis bilaterally at the level of L4-L5 and L5 and S1 with a stable spinal stenosis L2-L3 with progressive degenerative disc disease as well therefore the patient was admitted to hospital for evaluation by physical therapy and Occupational Therapy, will consult spine surgery further recommendation and how to progress from here 10/24: Patient is laying down in bed in no apparent distress, she slept well last night, she continues to have quite a bit of help, she did have episode of urinary retention yesterday twice, she did have to have a straight cath, last time was about 400 cc of urine, she did have a straight cath, for a 300 mL, she still have about 190 mL and there, we will monitor the patient very closely, we will start the patient on Flomax 0.4 mg once every day, discussed with the nursing staff the need to put a Parker catheterization if her residual volume is greater than 300 at any time patient will be seen and evaluated by spine surgery hopefully in the next 24 hours, I reviewed the result of the CT scan of the lumbar spine with the patient and her at the bedside, awaiting physical therapy evaluation tomorrow morning, patient will definitely need to go to subacute rehabilitation as the patient is not able to move around at all she does have significant weakness in the right lower extremity, await spine surgery evaluation and the recommendation on how to pursue her complex medical care 10/25: Patient is sitting up in bed appears to be generally weak, appears to be pale at this time, she has not been seen by physical therapy yet, she will be seen in consultation by spine surgery for a second opinion about her significant spinal stenosis with right lower extremity weakness, patient will likely require to go to subacute rehabilitation as she is not able to ambulate at this time. 10/26: Patient sitting up in bed in no apparent distress, she continues to have significant pain rating to the right lower extremity, she appears to have tolerated her pain medicine as well as muscle laxer so far, she was seen in consultation by spine surgery as well as by pain management, it was recommended for the patient to continue with physical therapy occupational therapy increase stretching exercises, and she is scheduled to have facet block and probably sacroiliac joint injections on I will hold her Eliquis for the next 48 hours, and we will follow-up with the patient very closely. Will discuss with pain management whether or not the patient will have it as an outpatient orders and patient REVIEW OF SYSTEMS: Constitutional: No documented fever, no chills, no night sweats. significant weight gain No weakness, fatigue or lethargy. No daytime sleepiness. HEENT: No headache. No blurred vision or double vision, no loss of vision. No loss of Hearing, no ringing in the ears, no dizziness. No nasal drainage or congestion. No epistaxis. No sore throat. Lungs: positive for shortness of breath, occasional cough, no sputum production. No wheezing. Reports dyspnea with activity, positive for orthopneam and PND Cardiovascular: No chest pain, positive for mild lower extremity edema. positive for palpitations. no paroxysmal nocturnal dyspnea. no orthopnea. No lightheadedness or dizziness. No syncopal episodes. Abdominal: Reports no abdominal pain. positive for nausea, vomiting. No diarrhea. No constipation. No bloody or tarry stools reports loss of appetite. Genitourinary: No dysuria, increased frequency, urgency. No urinary retention. Musculoskeletal: No myalgias. positive for muscle weakness, positive for gait dysfunction, no frequent falls. positive for back pain. No neck pain. Integumentary: No wounds, no lesions. No rash or pruritus. Positive for bruising to bilateral lower extremities. No change in hair or nails. Neurologic: No aphasia. No facial droop. No change in mentation. No head injury. No headache. Right lower extremity weakness, positive for paresthesia. Psychiatric: Positive depression. No anxiety. No mood swings. Endocrine: No abnormal blood sugars. No weight change. PHYSICAL EXAMINATION: General: this is a 69-year-old female laying down in bed in no apparent distress HEENT: Head is atraumatic, normocephalic, pupils were equal round reactive to light and recommendation, extraocular muscle movement were intact, sclera nonicteric, conjunctivae were pale, mucous membranes of the mouth are somewhat dry. Neck: Supple, no JVP, normal carotid upstroke bilaterally, no lymphadenopathy. Chest: Decreased breath sounds at the bases, few rhonchi, no expiratory wheezes, no chest wall tenderness, no intercostal retractions Heart: First heart sound is normal, second heart sound is normal there is syst olic ejection murmur 2/6 located in the left sternal border Abdomen: Soft, nontender, nondistended, positive bowel sounds. Extremities: There is +1 edema no calf tenderness DP +2 bilaterally, there is 4 toes amputation on the right side Neurologic examination: Patient is awake alert and oriented X 3, cranial nerves II-12 appear grossly intact, muscle power were 5 out of 5 in upper extremities, 1/5 in the right lower extremity, and 2 out of 5 in the left lower extremity ASSESSMENT AND PLAN: 1. Progressive degenerative disc disease of the lumbar spine with severe spinal stenosis at L4-L5 and L5-S1 right greater than left due to disc herniations at these levels. Continue current pain management, spine surgery evaluation appreciated, so is pain management, it was recommended for the patient to go for facet block as well as SI joint blocks, this will be scheduled for we will hold off Eliquis for the next 48 hours 2. Coronary artery disease status post PCI of the LAD with recent left heart catheterization that was done July 2024 that showed evidence of left main disease 20 to 30%, LAD 4050% stenosis where the stent is and RCA 99% stenosis with collaterals from left to right. Continue patient on metoprolol 25 mg orally twice every day, aspirin 81 mg once every day, also continue patient on atorvastatin 40 mg orally once every day, keep LDL 55-70 3. History of pulmonary medicine. I will hold off Eliquis for now 4. Paroxysmal atrial fibrillation/flutter. Continue patient on metoprolol 25 mg orally twice every day, I will hold Eliquis for now 5. Hypertension and hypertensive cardiovascular disease. Continue patient on metoprolol 25 mg orally twice every day, losartan 100 mg orally once every day, monitor the patient blood pressure very closely. 6. Hyperlipidemia. continue atorvastatin 40 mg orally once every day, monitor the patient the benefit, keep LDL 55-70. 7. Hypothyroidism. Continue patient on Synthroid 112 g orally once every day monitor TSH and free T4. 8. Diabetes mellitus type 1. Discontinue insulin pump, continue patient on sliding scale insulin for now. Start the patient on Lantus 22 units at bedtime. 9. GERD with esophagitis and had a hernia. Continue patient on Protonix 40 mg once every day. 10. Obesity with obstructive sleep apnea and possible obesity hypoventilation syndrome patient will need to have a sleep study as an outpatient. 11. Vitamin D deficiency. Continue vitamin D3 2000 units once every day. 12. History of kidney stones. stable at this time 13. DVT prophylaxis. Hold Eliquis for now. 14. GI prophylaxis. Continue Protonix 40 mg orally once every day 15. Medical debility. Physical therapy evaluation 16. 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 planning to [facility] on the [place] after facet blocks and possible SI joint injection Objective - Vital Signs Vital signs: Vital Signs Temp 98.3 F 10/26/24 06:54 Pulse 91 10/26/24 06:54 Resp 18 10/26/24 06:54 BP 104/43 10/26/24 06:54 Pulse Ox 100 10/26/24 06:54 FiO2 Intake & Output 10/25/24 10/26/24 10/26/24 18:59 06:59 18:59 Output Total 250 Balance -250 Output: Urine 250 Other: Voiding Method Bedside Commode Bedside Commode # Voids 2 1 - Labs CBC & Chem 7: 10/25/24 03:32 10/25/24 03:32 Labs: Abnormal Lab Results - Last 24 Hours (Table) 10/25/24 10/25/24 10/25/24 Range/Units 11:50 16:26 19:53 POC Glucose (mg/dL) 224 H 268 H 205 H (70-110) mg/dL 10/26/24 Range/Units 05:56 POC Glucose (mg/dL) 183 H (70-110) mg/dL
[2024-10-26 12:27] LABS: Glucose,Whole Blood 240 mg/dL (70-110)
[2024-10-26 16:50] LABS: Glucose,Whole Blood 229 mg/dL (70-110)
[2024-10-26 20:36] LABS: Glucose,Whole Blood 194 mg/dL (70-110)
[2024-10-27 06:15] LABS: Glucose,Whole Blood 174 mg/dL (70-110)
[2024-10-27 08:26] LABS: Basophils # (A) 0.05 X 10*3/uL (0.00-0.10); Basophils % (A) 0.7 %; Eosinophils # (A) 0.21 X 10*3/uL (0.04-0.35); HCT 31.4 % (37.2-46.3); HGB 8.9 g/dL (12.0-15.0); Lymphocytes # (A) 1.78 X 10*3/uL (0.90-5.00); Lymphocytes % (A) 25.6 %; MCHC 28.3 g/dL (32.0-37.0); MCV 95.2 FL (80.0-97.0); Mean Platelet Volume 12.1 FL (9.5-12.2); Monocytes # (A) 0.87 X 10*3/uL (0.20-1.00); Monocytes % (A) 12.5 %; NRBC Per 100 WBC 0 X 10*3/uL (0.00-0.01); Neutrophils # (A) 4.02 X 10*3/uL (1.80-7.70); Neutrophils % (A) 57.8 %; Platelet Count 231 X 10*3/uL (140-440); RDW 19.4 % (11.5-14.5); WBC 6.96 X 10*3/uL (4.50-10.00)
[2024-10-27 08:34] LABS: ALT 15 U/L (8-44); AST 21 U/L (13-35); Albumin/Globulin Ratio 0.94 Ratio (1.60-3.17); Alkaline Phosphatase 66 U/L (41-126); Blood Urea Nitrogen 21.5 mg/dL (9.0-27.0); Calcium 8.8 mg/dL (8.7-10.3); Carbon Dioxide 31.4 mmol/L (21.6-31.8); Chloride 98 mmol/L (96-109); Globulin 3.2 g/dL (1.6-3.3); Glucose 175 mg/dL (70-110); Potassium 3.6 mmol/L (3.5-5.5); Sodium 140 mmol/L (135-145); Total Bilirubin 0.4 mg/dL (0.3-1.2); Total Protein 6.2 g/dL (6.2-8.2)
--- NOTE | 2024-10-27 10:07 | P.PN ---
Subjective Progress Note Date: 10/27/24 HISTORY OF PRESENT ILLNESS: This is a 69-year-old female with a previous medical history signif icant for hypertension and hypertensive cardiovascular disease, hyperlipidemia, hypothyroidism, chronic gastroesophageal reflux disease with esophagitis, type 1 diabetes mellitus currently on insulin pump, vitamin D deficiency, diabetic neuropathy, patient also had history of spondylosis of the lumbar spine status post lumbar laminectomy back in 07/01/2022 followed by a wound dehiscence at the [facility] of the lumbar area and she ended up going back for another surgical intervention 2022 followed by a wound care of the surgical site, patient recovered very well from that, patient apparently was recently hospitalized at [facility] for urine from August 21, 2024 till August 27, 2024 after she was admitted for what appears to be an unstable patient myocardial infarction status post left heart catheterization that showed evidence of 20 to 30% stenosis of the left main artery, 40 to 50% stenosis of the LAD where she had a previous stent, and 99% of the RCA with collaterals from left to right, no intervention was done, patient also did have acute blood loss anemia status post 1 unit of packed red blood cells procedure was seen in consultation by general surgery who is recommended not to do any intervention at this point in time, patient suffers from severe weakness in the right lower extremity, was seen and evaluated by physical therapy ended up going to [facility] for physical therapy rehabilitation, patient just left [facility] on Friday she tr ied to go home and she could not get into the house, EMS was called and the patient was brought into the ER and she was given the option of staying in the hospital or going home she elected to go back home to try to get into the house, finally she managed to get into the house, but she laid in bed and she could not get up to go to the bathroom she had diapers on, she called me and stated that she is not able to get out of the bed and she is not able to go to the bathroom I advised her to call 911 and come to the ER for evaluation, had a CT scan of the lumbar spine that showed significant changes and surgical changes of the lumbar spine, with severe spinal stenosis bilaterally at the level of L4-L5 and L5 and S1 with a stable spinal stenosis L2-L3 with progressive degenerative disc disease as well therefore the patient was admitted to hospital for evaluation by physical therapy and Occupational Therapy, will consult spine surgery further recommendation and how to progress from here 10/24: Patient is laying down in bed in no apparent distress, she slept well last night, she continues to have quite a bit of help, she did have episode of urinary retention yesterday twice, she did have to have a straight cath, last time was about 400 cc of urine, she did have a straight cath, for a 300 mL, she still have about 190 mL and there, we will monitor the patient very closely, we will start the patient on Flomax 0.4 mg once every day, discussed with the nursing staff the need to put a Parker catheterization if her residual volume is greater than 300 at any time patient will be seen and evaluated by spine surgery hopefully in the next 24 hours, I reviewed the result of the CT scan of the lumbar spine with the patient and her at the bedside, awaiting physical therapy evaluation tomorrow morning, patient will definitely need to go to subacute rehabilitation as the patient is not able to move around at all she does have significant weakness in the right lower extremity, await spine surgery evaluation and the recommendation on how to pursue her complex medical care 10/25: Patient is sitting up in bed appears to be generally weak, appears to be pale at this time, she has not been seen by physical therapy yet, she will be seen in consultation by spine surgery for a second opinion about her significant spinal stenosis with right lower extremity weakness, patient will likely require to go to subacute rehabilitation as she is not able to ambulate at this time. 10/26: Patient sitting up in bed in no apparent distress, she continues to have significant pain rating to the right lower extremity, she appears to have tolerated her pain medicine as well as muscle laxer so far, she was seen in consultation by spine surgery as well as by pain management, it was recommended for the patient to continue with physical therapy occupational therapy increase stretching exercises, and she is scheduled to have facet block and probably sacroiliac joint injections on I will hold her Eliquis for the next 48 hours, and we will follow-up with the patient very closely. Will discuss with pain management whether or not the patient will have it as an outpatient orders and patient 10/27: Patient sitting up in the recliner chair she is in tears when I walked into the room, she is frustrated with her current condition, she is not able to move around much, she has significant weakness in the right lower extremity due to severe spinal stenosis, she was seen in consultation by spine surgery as well as pain management, she is scheduled to go for SI joint block as well as facet block hopefully tomorrow morning, patient is at high risk of falling because of paresis of the right lower extremity and the fact that she has been on anticoagulation that increase her risk of intracranial bleed therefore the patient need to be admitted to an inpatient at this point in time, until is able to safely get out of the bed get to her wheelchair without falling. REVIEW OF SYSTEMS: Constitutional: No documented fever, no chills, no night sweats. significant weight gain positive for generalized weakness, fatigue or lethargy. No daytime sleepiness. HEENT: No headache. No blurred vision or double vision, no loss of vision. No loss of Hearing, no ringing in the ears, no dizziness. No nasal drainage or congestion. No epistaxis. No sore throat. Lungs: positive for shortness of breath, occasional cough, no sputum production. No wheezing. Reports dyspnea with activity, no orthopnea PND. Cardiovascular: No chest pain, positive for mild lower extremity edema. positive for palpitations. no paroxysmal nocturnal dyspnea. no orthopnea. No lightheadedness or dizziness. No syncopal episodes. Abdominal: Reports no abdominal pain. positive for nausea, no vomiting. No diarrhea. Mild constipation. No bloody or tarry stools reports loss of appetite. Genitourinary: No dysuria, increased frequency, urgency. No urinary retention. Musculoskeletal: No myalgias. positive for muscle weakness, positive for gait dysfunction, no frequent falls. positive for back pain. No neck pain, right lower extremity weakness. Integumentary: No wounds, no lesions. No rash or pruritus. Positive for bruising to bilateral lower extremities. No change in hair or nails. Neurologic: No aphasia. No facial droop. No change in mentation. No head injury. No headache. Right lower extremity weakness, positive for paresthesia. Psychiatric: Positive depression. Positive for anxiety. No mood swings. Endocrine: No abnormal blood sugars. No weight change. PHYSICAL EXAMINATION: General: this is a 69-year-old female sitting up in the recliner chair in no distress. HEENT: Head is atraumatic, normocephalic, pupils were equal round reactive to light and recommendation, extraocular muscle movement were intact, sclera nonicteric, conjunctivae were pale, mucous membranes of the mouth are somewhat dry. Neck: Supple, no JVP, normal carotid upstroke bilaterally, no lymphadenopathy. Chest: Decreased breath sounds at the bases, few rhonchi, no expiratory wheezes, no chest wall tenderness, no intercostal retractions Heart: First heart sound is normal, second heart sound is normal there is systolic ejection murmur 2/6 located in the left sternal border Abdomen: Soft, nontender, nondistended, positive bowel sounds. 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 Neurologic examination: Patient is awake alert and oriented X 3, cranial nerves II-12 appear grossly intact, muscle power were 5 out of 5 in upper extremities, 1/5 in the right lower extremity, and 2 out of 5 in the left lower extremity ASSESSMENT AND PLAN: 1. Progressive degenerative disc disease of the lumbar spine with severe spinal stenosis at L4-L5 and L5-S1 right greater than left due to disc herniations at these levels. Continue current pain management, spine surgery evaluation appreciated, so is pain management, it was recommended for the patient to go for facet block as well as SI joint blocks, this will be scheduled for we will hold off Eliquis for the next 48 hours patient is at high risk of falling therefore she need to be admitted as an inpatient and have the shot in the hospital prior to her discharge to the extended care facility. 2. Coronary artery disease status post PCI of the LAD with recent left heart catheterization that was done July 2024 that showed evidence of left main disease 20 to 30%, LAD 4050% stenosis where the stent is and RCA 99% stenosis with collaterals from left to right. Continue patient on metoprolol 25 mg orally twice every day, aspirin 81 mg once every day, also continue patient on atorvastatin 40 mg orally once every day, keep LDL 55-70 3. History of pulmonary medicine. I will hold off Eliquis for now 4. Paroxysmal atrial fibrillation/flutter. Continue patient on metoprolol 25 mg orally twice every day, I will hold Eliquis for now 5. Hypertension and hypertensive cardiovascular disease. Continue patient on metoprolol 25 mg orally twice every day, losartan 100 mg orally once every day, monitor the patient blood pressure very closely. 6. Hyperlipidemia. continue atorvastatin 40 mg orally once every day, monitor the patient the benefit, keep LDL 55-70. 7. Hypothyroidism. Continue patient on Synthroid 112 g orally once every day monitor TSH and free T4. 8. Diabetes mellitus type 1. We will continue patient on Lantus and increase the dose to 24 units at bedtime along with a sliding scale insulin. 9. GERD with esophagitis and had a hernia. Continue patient on Protonix 40 mg once every day. 10. Obesity with obstructive sleep apnea and possible obesity hypoventilation syndrome patient will need to have a sleep study as an outpatient. 11. Vitamin D deficiency. Continue vitamin D3 2000 units once every day. 12. History of kidney stones. stable at this time 13. DVT prophylaxis. Hold Eliquis for now. Bilateral SCDs and bilateral knee- high GARRY hose 14. GI prophylaxis. Continue Protonix 40 mg orally once every day 15. Medical debility. Physical therapy evaluation 16. court worker consultation for discharge planning to [facility] after facet blocks and possible SI joint injection 17. Hopefully effusions in the leg tomorrow morning after the injection. Objective - Vital Signs Vital signs: Vital Signs Temp 97.7 F 10/27/24 07:08 Pulse 98 10/27/24 07:08 Resp 18 10/27/24 07:08 BP 116/70 10/27/24 07:08 Pulse Ox 100 10/27/24 07:08 FiO2 Intake & Output 10/26/24 10/27/24 10/27/24 18:59 06:59 18:59 Intake Total 1000 Balance 1000 Intake: Oral 1000 Other: Voiding Method Bedside Commode Bedside Commode # Voids 1 2 # Bowel Movements 1 - Labs CBC & Chem 7: 10/27/24 03:40 10/27/24 03:40 Labs: Abnormal Lab Results - Last 24 Hours (Table) 10/26/24 10/26/24 10/26/24 Range/Units 12:26 16:48 20:35 RBC (4.10-5.20) X 10*6/uL Hgb (12.0-15.0) g/dL Hct (37.2-46.3) % MCHC (32.0-37.0) g/dL RDW (11.5-14.5) % BUN/Creatinine Ratio (12.00-20.00) Ratio Glucose (70-110) mg/dL POC Glucose (mg/dL) 240 H 229 H 194 H (70-110) mg/dL Albumin (3.8-4.9) g/dL Albumin/Globulin Ratio (1.60-3.17) Ratio 10/27/24 10/27/24 10/27/24 Range/Units 03:40 03:40 06:14 RBC 3.30 L (4.10-5.20) X 10*6/uL Hgb 8.9 L (12.0-15.0) g/dL Hct 31.4 L (37.2-46.3) % MCHC 28.3 L (32.0-37.0) g/dL RDW 19.4 H (11.5-14.5) % BUN/Creatinine Ratio 21.50 H (12.00-20.00) Ratio Glucose 175 H (70-110) mg/dL POC Glucose (mg/dL) 174 H (70-110) mg/dL Albumin 3.0 L (3.8-4.9) g/dL Albumin/Globulin Ratio 0.94 L (1.60-3.17) Ratio
[2024-10-27 10:41] LABS: Glucose,Whole Blood 193 mg/dL (70-110)
[2024-10-27 17:05] LABS: Glucose,Whole Blood 218 mg/dL (70-110)
[2024-10-27 20:09] LABS: Glucose,Whole Blood 232 mg/dL (70-110)
[2024-10-27 23:33] LABS: Glucose,Whole Blood 223 mg/dL (70-110)
[2024-10-27] MEDS: INSULIN GLARGINE (LANTUS) 100 UNIT/ML SYR SQ SCH (23:48)
[2024-10-28 06:25] LABS: Glucose,Whole Blood 138 mg/dL (70-110)
[2024-10-28] MEDS: LACTATED RINGERS 1,000 ML IV SCH (08:37)
[2024-10-28 08:38] LABS: ALT 12 U/L (8-44); AST 20 U/L (13-35); Albumin 2.9 g/dL (3.8-4.9); Albumin/Globulin Ratio 0.88 Ratio (1.60-3.17); Alkaline Phosphatase 63 U/L (41-126); BUN/Creat Ratio 18.11 Ratio (12.00-20.00); Blood Urea Nitrogen 16.3 mg/dL (9.0-27.0); Calcium 8.8 mg/dL (8.7-10.3); Carbon Dioxide 33.9 mmol/L (21.6-31.8); Chloride 100 mmol/L (96-109); Globulin 3.3 g/dL (1.6-3.3); Glucose 154 mg/dL (70-110); Potassium 3.6 mmol/L (3.5-5.5); Sodium 142 mmol/L (135-145); Total Bilirubin 0.4 mg/dL (0.3-1.2); Total Protein 6.2 g/dL (6.2-8.2)
[2024-10-28 08:46] LABS: Basophils # (A) 0.05 X 10*3/uL (0.00-0.10); Basophils % (A) 0.9 %; Eosinophils # (A) 0.22 X 10*3/uL (0.04-0.35); Eosinophils % (A) 3.8 %; HCT 33.9 % (37.2-46.3); HGB 9.5 g/dL (12.0-15.0); Lymphocytes # (A) 1.55 X 10*3/uL (0.90-5.00); Lymphocytes % (A) 27.1 %; MCH 26.8 pg (27.0-32.0); MCV 95.8 FL (80.0-97.0); Mean Platelet Volume 11.8 FL (9.5-12.2); Monocytes # (A) 0.68 X 10*3/uL (0.20-1.00); Monocytes % (A) 11.9 %; NRBC Per 100 WBC 0 X 10*3/uL (0.00-0.01); Neutrophils # (A) 3.21 X 10*3/uL (1.80-7.70); Platelet Count 220 X 10*3/uL (140-440); RBC 3.54 X 10*6/uL (4.10-5.20); RDW 18.9 % (11.5-14.5); WBC 5.73 X 10*3/uL (4.50-10.00)
[2024-10-28 11:10] LABS: Glucose,Whole Blood 137 mg/dL (70-110)
[2024-10-28] MEDS ORDERED: ROPIVACAINE 5MG/ML 20ML VIAL ONE (12:47)
[2024-10-28] MEDS ORDERED: IOPAMIDOL M300 15ML VIAL ONE (12:47)
[2024-10-28] MEDS ORDERED: methylPREDNISolone ACETATE 40 MG/ML 1 ML VIAL ONE (12:47)
[2024-10-28] MEDS ORDERED: fentaNYL (PF) 50 MCG/ML 2 ML AMP ONE (12:47)
--- NOTE | 2024-10-28 13:10 | P.PCN ---
Description of Procedure: Preprocedure diagnosis. Sacroiliac joint arthropathy. Postprocedure diagnosis. As above. Procedure done. Injection of the radio contrast material into right sacroiliac joint, sacroiliac joint arthrogram, interpretation of arthrogram. right sacroiliac joint injection with local anesthetics and steroid under fluoroscopic guidance. Anesthesia. Fentanyl 50 mcg IV. Local anesthetic infiltration. Continuous EKG, pulse ox, blood pressure, and verbal communication was maintained with the patient in OR. Time. Start 1247. And 1303. Blood loss. Minimal. Indication. Sacroiliac joint arthropathy. Discussed the procedure, alternatives, complications which may include infection,bleeding, nerve damage, aggravation of pain which could be permanent. Patient understands and questions were answered. She is on Eliquis which has been held for 2 days. Tomorrow will schedule patient for caudal epidural steroid injection. Discussed with the patient about the plan of treatment. Procedure note. After getting consent patient in OR in prone position. Back prepped with chlorhexidine and draped in sterile manner. After injecting 10 mL of 1% lidocaine subcutaneously, a 22-gauge spinal needle was introduced under tunnel vision of the fluoroscope in the lower and posterior one third of right/left sacroiliac joint. After needle position confirmation by AP and crosstable lateral view, 1 mL of Isovue 200 contrast was injected. Contrast was noted to be into the sacroiliac joint. After repeat negative aspiration, 2.5 mL solution was injected which consists of 2 ml of 0.5% Ropivacaine mixed with 0.5 mL of 20 mg Depo-Medrol. In exactly same way left sacroiliac joint was injected with same amount of solution. After the procedure needles were taken out. Bandage applied. Disposition. Patient tolerated the procedure well. No complication. Patient was discharged home in stable condition.
--- NOTE | 2024-10-28 13:39 | FL ---
EXAMINATION TYPE: FL guided pain mgmt statistic DATE OF EXAM: 10/28/2024 FLUOROSCOPY Fluoro time - 51 seconds. DAP - [id number] 2 images are provided for the SI joint injection [facility], , 10/28/2024 1:36 PM
[2024-10-28 14:45] LABS: Glucose,Whole Blood 167 mg/dL (70-110)
[2024-10-28 16:48] LABS: Glucose,Whole Blood 321 mg/dL (70-110)
--- NOTE | 2024-10-28 18:15 | P.PN ---
Subjective Progress Note Date: 10/28/24 HISTORY OF PRESENT ILLNESS: This is a 69-year-old female with a previous medical history signif icant for hypertension and hypertensive cardiovascular disease, hyperlipidemia, hypothyroidism, chronic gastroesophageal reflux disease with esophagitis, type 1 diabetes mellitus currently on insulin pump, vitamin D deficiency, diabetic neuropathy, patient also had history of spondylosis of the lumbar spine status post lumbar laminectomy back in 07/01/2022 followed by a wound dehiscence at the [facility] of the lumbar area and she ended up going back for another surgical intervention 2022 followed by a wound care of the surgical site, patient recovered very well from that, patient apparently was recently hospitalized at [facility] for urine from August 21, 2024 till August 27, 2024 after she was admitted for what appears to be an unstable patient myocardial infarction status post left heart catheterization that showed evidence of 20 to 30% stenosis of the left main artery, 40 to 50% stenosis of the LAD where she had a previous stent, and 99% of the RCA with collaterals from left to right, no intervention was done, patient also did have acute blood loss anemia status post 1 unit of packed red blood cells procedure was seen in consultation by general surgery who is recommended not to do any intervention at this point in time, patient suffers from severe weakness in the right lower extremity, was seen and evaluated by physical therapy ended up going to [facility] for physical therapy rehabilitation, patient just left [facility] on Friday she tr ied to go home and she could not get into the house, EMS was called and the patient was brought into the ER and she was given the option of staying in the hospital or going home she elected to go back home to try to get into the house, finally she managed to get into the house, but she laid in bed and she could not get up to go to the bathroom she had diapers on, she called me and stated that she is not able to get out of the bed and she is not able to go to the bathroom I advised her to call 911 and come to the ER for evaluation, had a CT scan of the lumbar spine that showed significant changes and surgical changes of the lumbar spine, with severe spinal stenosis bilaterally at the level of L4-L5 and L5 and S1 with a stable spinal stenosis L2-L3 with progressive degenerative disc disease as well therefore the patient was admitted to hospital for evaluation by physical therapy and Occupational Therapy, will consult spine surgery further recommendation and how to progress from here 10/24: Patient is laying down in bed in no apparent distress, she slept well last night, she continues to have quite a bit of help, she did have episode of urinary retention yesterday twice, she did have to have a straight cath, last time was about 400 cc of urine, she did have a straight cath, for a 300 mL, she still have about 190 mL and there, we will monitor the patient very closely, we will start the patient on Flomax 0.4 mg once every day, discussed with the nursing staff the need to put a Parker catheterization if her residual volume is greater than 300 at any time patient will be seen and evaluated by spine surgery hopefully in the next 24 hours, I reviewed the result of the CT scan of the lumbar spine with the patient and her at the bedside, awaiting physical therapy evaluation tomorrow morning, patient will definitely need to go to subacute rehabilitation as the patient is not able to move around at all she does have significant weakness in the right lower extremity, await spine surgery evaluation and the recommendation on how to pursue her complex medical care 10/25: Patient is sitting up in bed appears to be generally weak, appears to be pale at this time, she has not been seen by physical therapy yet, she will be seen in consultation by spine surgery for a second opinion about her significant spinal stenosis with right lower extremity weakness, patient will likely require to go to subacute rehabilitation as she is not able to ambulate at this time. 10/26: Patient sitting up in bed in no apparent distress, she continues to have significant pain rating to the right lower extremity, she appears to have tolerated her pain medicine as well as muscle laxer so far, she was seen in consultation by spine surgery as well as by pain management, it was recommended for the patient to continue with physical therapy occupational therapy increase stretching exercises, and she is scheduled to have facet block and probably sacroiliac joint injections on I will hold her Eliquis for the next 48 hours, and we will follow-up with the patient very closely. Will discuss with pain management whether or not the patient will have it as an outpatient orders and patient 10/27: Patient sitting up in the recliner chair she is in tears when I walked into the room, she is frustrated with her current condition, she is not able to move around much, she has significant weakness in the right lower extremity due to severe spinal stenosis, she was seen in consultation by spine surgery as well as pain management, she is scheduled to go for SI joint block as well as facet block hopefully tomorrow morning, patient is at high risk of falling because of paresis of the right lower extremity and the fact that she has been on anticoagulation that increase her risk of intracranial bleed therefore the patient need to be admitted to an inpatient at this point in time, until is able to safely get out of the bed get to her wheelchair without falling. 10/28: Patient is laying down in bed in no apparent distress, patient did have pustule to the right antecubital area where the IV access was, with significant erythema and tenderness suggestive of infected thrombophlebitis of the basilic vein, IV access was removed, patient was started on IV antibiotic in the form of cefazolin 2 g every back every 8 hours, patient also will be started on K-pad to the right antecubital area, patient also will be monitored very closely, repeat her CBC in the next 24 hours, blood cultures were done as well, follow-up with the patient very closely, patient underwent SI joint block and 1 side she is going for another site tomorrow morning, she will stay off Eliquis for another 24 hours, we will follow-up with the patient in the next 24 hours if she is feeling better she can be discharged to [facility] and follow-up with her as an outpatient. REVIEW OF SYSTEMS: Constitutional: No documented fever, no chills, no night sweats. significant weight gain positive for generalized weakness, fatigue or lethargy. No daytime sleepiness. HEENT: No headache. No blurred vision or double vision, no loss of vision. No loss of Hearing, no ringing in the ears, no dizziness. No nasal drainage or congestion. No epistaxis. No sore throat. Lungs: positive for shortness of breath, occasional cough, no sputum production. No wheezing. Reports dyspnea with activity, no orthopnea PND. Cardiovascular: No chest pain, positive for mild lower extremity edema. positive for palpitations. no paroxysmal nocturnal dyspnea. no orthopnea. No lightheadedness or dizziness. No syncopal episodes. Abdominal: Reports no abdominal pain. positive for nausea, no vomiting. No diarrhea. Mild constipation. No bloody or tarry stools reports loss of appetite. Genitourinary: No dysuria, increased frequency, urgency. No urinary retention. Musculoskeletal: No myalgias. positive for muscle weakness, positive for gait dysfunction, no frequent falls. positive for back pain. No neck pain, right lower extremity weakness. Integumentary: No wounds, no lesions. Positive for right pustule to the right antecubital area with tenderness due to infectious thrombophlebitis positive for bruising to bilateral lower extremities. No change in hair or nails. Neurologic: No aphasia. No facial droop. No change in mentation. No head injury. No headache. Right lower extremity weakness, positive for paresthesia. Psychiatric: Positive depression. Positive for anxiety. No mood swings. Endocrine: No abnormal blood sugars. No weight change. PHYSICAL EXAMINATION: General: this is a 69-year-old female laying down in bed in no apparent distress HEENT: Head is atraumatic, normocephalic, pupils were equal round reactive to light and recommendation, extraocular muscle movement were intact, sclera nonicteric, conjunctivae were pale, mucous membranes of the mouth are somewhat dry. Neck: Supple, no JVP, normal carotid upstroke bilaterally, no lymphadenopathy. Chest: Decreased breath sounds at the bases, few rhonchi, no expiratory wheezes, no chest wall tenderness, no intercostal retractions Heart: First heart sound is normal, second heart sound is normal there is systolic ejection murmur 2/6 located in the left sternal border Abdomen: Soft, nontender, nondistended, positive bowel sounds. 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 Neurologic examination: Patient is awake alert and oriented X 3, cranial nerves II-12 appear grossly intact, muscle power were 5 out of 5 in upper extremities, 1/5 in the right lower extremity, and 2 out of 5 in the left lower extremity Skin examination: Right antecubital infectious thrombophlebitis with a pustule in place. ASSESSMENT AND PLAN: 1. Progressive degenerative disc disease of the lumbar spine with severe spinal stenosis at L4-L5 and L5-S1 right greater than left due to disc herniations at these levels. Continue current pain management, spine surgery evaluation appreciated, so is pain management, status post SI joint block and she will be scheduled tomorrow for epidural caudal injection and reevaluate the patient again in the next 24 hours, hopefully she will be able to go to [facility] on the diop with some pain management. 2. Right iatrogenic antecubital infected thrombophlebitis. Blood cultures were sent, start the patient on cefazolin 2 g piggyback every 8 hours, follow-up with the patient very closely. Continue K-pad's. 3. Coronary artery disease status post PCI of the LAD with recent left heart catheterization that was done July 2024 that showed evidence of left main di sease 20 to 30%, LAD 4050% stenosis where the stent is and RCA 99% stenosis with collaterals from left to right. Continue patient on metoprolol 25 mg orally twice every day, aspirin 81 mg once every day, also continue patient on atorvastatin 40 mg orally once every day, keep LDL 55-70 4. History of pulmonary medicine. given Eliquis on hold for the next 24 hours. 5. Paroxysmal atrial fibrillation/flutter. Continue patient on metoprolol 25 mg orally twice every day, continue to hold Eliquis for the next 24 hours. 6. Hypertension and hypertensive cardiovascular disease. Continue patient on metoprolol 25 mg orally twice every day, losartan 100 mg orally once every day, monitor the patient blood pressure very closely. 7. Hyperlipidemia. continue atorvastatin 40 mg orally once every day, monitor the patient the benefit, keep LDL 55-70. 8. Hypothyroidism. Continue patient on Synthroid 112 g orally once every day monitor TSH and free T4. 9. Diabetes mellitus type 1. Continue consistent carbohydrate diet, continue patient on Lantus 24 units at bedtime along with a sliding scale insulin. 10. GERD with esophagitis and had a hernia. Continue patient on Protonix 40 mg once every day. 11. Obesity with obstructive sleep apnea and possible obesity hypoventilation syndrome patient will need to have a sleep study as an outpatient. 12. Vitamin D deficiency. Continue vitamin D3 2000 units once every day. 13. History of kidney stones. stable at this time 14. DVT prophylaxis. Hold Eliquis for now. Bilateral SCDs and bilateral knee- high GARRY hose 15. GI prophylaxis. Continue Protonix 40 mg orally once every day 16. Medical debility. Physical therapy evaluation likely she will go back to [facility] in the next 24 hours after the epiduralinjection. 17. Patient is accepted to go back to [facility] only hopefully tomorrow after the caudal epidural injection. Objective - Vital Signs Vital signs: Vital Signs Temp 98.1 F 10/28/24 16:16 Pulse 90 10/28/24 16:16 Resp 18 10/28/24 16:16 BP 109/67 10/28/24 16:16 Pulse Ox 98 10/28/24 16:16 FiO2 Intake & Output 10/27/24 10/28/24 10/28/24 18:59 06:59 18:59 Other: Voiding Method Toilet Bedside Commode # Voids 1 # Bowel Movements 1 - Labs CBC & Chem 7: 10/28/24 04:50 10/28/24 04:50 Labs: Abnormal Lab Results - Last 24 Hours (Table) 10/27/24 10/27/24 10/28/24 Range/Units 20:08 23:32 04:50 RBC 3.54 L (4.10-5.20) X 10*6/uL Hgb 9.5 L (12.0-15.0) g/dL Hct 33.9 L (37.2-46.3) % MCH 26.8 L (27.0-32.0) pg MCHC 28.0 L (32.0-37.0) g/dL RDW 18.9 H (11.5-14.5) % Carbon Dioxide (21.6-31.8) mmol/L Glucose (70-110) mg/dL POC Glucose (mg/dL) 232 H 223 H (70-110) mg/dL Albumin (3.8-4.9) g/dL Albumin/Globulin Ratio (1.60-3.17) Ratio 10/28/24 10/28/24 10/28/24 Range/Units 04:50 06:24 11:09 RBC (4.10-5.20) X 10*6/uL Hgb (12.0-15.0) g/dL Hct (37.2-46.3) % MCH (27.0-32.0) pg MCHC (32.0-37.0) g/dL RDW (11.5-14.5) % Carbon Dioxide 33.9 H (21.6-31.8) mmol/L Glucose 154 H (70-110) mg/dL POC Glucose (mg/dL) 138 H 137 H (70-110) mg/dL Albumin 2.9 L (3.8-4.9) g/dL Albumin/Globulin Ratio 0.88 L (1.60-3.17) Ratio 10/28/24 10/28/24 Range/Units 14:44 16:46 RBC (4.10-5.20) X 10*6/uL Hgb (12.0-15.0) g/dL Hct (37.2-46.3) % MCH (27.0-32.0) pg MCHC (32.0-37.0) g/dL RDW (11.5-14.5) % Carbon Dioxide (21.6-31.8) mmol/L Glucose (70-110) mg/dL POC Glucose (mg/dL) 167 H 321 H (70-110) mg/dL Albumin (3.8-4.9) g/dL Albumin/Globulin Ratio (1.60-3.17) Ratio
[2024-10-28 20:04] LABS: Glucose,Whole Blood 373 mg/dL (70-110)
[2024-10-29 06:18] LABS: Glucose,Whole Blood 265 mg/dL (70-110)
[2024-10-29 06:43] LABS: Partial Thromboplastin Time 22.3 sec (22.0-30.0); Prothrombin Time 11.1 sec (10.0-12.5)
[2024-10-29 08:38] LABS: ALT 8 U/L (8-44); AST 18 U/L (13-35); Albumin 2.8 g/dL (3.8-4.9); Alkaline Phosphatase 59 U/L (41-126); Blood Urea Nitrogen 13.2 mg/dL (9.0-27.0); Calcium 8.7 mg/dL (8.7-10.3); Carbon Dioxide 31.7 mmol/L (21.6-31.8); Chloride 101 mmol/L (96-109); Globulin 3.1 g/dL (1.6-3.3); Glucose 240 mg/dL (70-110); Potassium 3.9 mmol/L (3.5-5.5); Sodium 142 mmol/L (135-145); Total Bilirubin 0.3 mg/dL (0.3-1.2); Total Protein 5.9 g/dL (6.2-8.2)
[2024-10-29 08:48] LABS: Basophils # (A) 0.03 X 10*3/uL (0.00-0.10); Basophils % (A) 0.5 %; Eosinophils # (A) 0.01 X 10*3/uL (0.04-0.35); Eosinophils % (A) 0.2 %; HCT 32.7 % (37.2-46.3); HGB 9.3 g/dL (12.0-15.0); Lymphocytes % (A) 28.9 %; MCH 26.6 pg (27.0-32.0); MCHC 28.4 g/dL (32.0-37.0); MCV 93.7 FL (80.0-97.0); Monocytes # (A) 0.66 X 10*3/uL (0.20-1.00); NRBC Per 100 WBC 0 X 10*3/uL (0.00-0.01); Neutrophils # (A) 3.95 X 10*3/uL (1.80-7.70); Neutrophils % (A) 60.1 %; Platelet Count 262 X 10*3/uL (140-440); RBC 3.49 X 10*6/uL (4.10-5.20); RDW 19.1 % (11.5-14.5); WBC 6.57 X 10*3/uL (4.50-10.00)
[2024-10-29 11:36] LABS: Glucose,Whole Blood 191 mg/dL (70-110)
--- NOTE | 2024-10-29 14:28 | P.DS ---
Providers Date of admission: 10/23/24 12:04 Expected date of discharge: 10/26/24 Attending physician: Teresa Fields Consults: 10/24/24 12:18 Consult Physician Routine Consulting Provider: Ricardo Pete Consult Reason/Comments: Severe spinal stenosis right leg weakness Do you want consulting provider notified?: Yes Primary care physician: Teresa Fields Hospital Course: HISTORY OF PRESENT ILLNESS: This is a 69-year-old female with a previous medical history significant for hypertension and hypertensive cardiovascular disease, hyperlipidemia, hypothyroidism, chronic gastroesophageal reflux disease with esophagitis, type 1 diabetes mellitus currently on insulin pump, vitamin D deficiency, diabetic neuropathy, patient also had history of spondylosis of the lumbar spine status post lumbar laminectomy back in 07/01/2022 followed by a wound dehiscence at the [facility] of the lumbar area and she ended up going back for another surgical intervention 2022 followed by a wound care of the surgical site, patient recovered very well from that, patient apparently was recently hospitalized at [facility] for urine from August 21, 2024 till August 27, 2024 after she was admitted for what appears to be an unstable patient myocardial infarction status post left heart catheterization that showed evidence of 20 to 30% stenosis of the left main artery, 40 to 50% stenosis of the LAD where she had a previous stent, and 99% of the RCA with collaterals from left to right, no intervention was done, patient also did have acute blood loss anemia status post 1 unit of packed red blood cells procedure was seen in consultation by general surgery who is recommended not to do any intervention at this point in time, patient suffers from severe weakness in the right lower extremity, was seen and evaluated by physical therapy ended up going to [facility] for physical therapy rehabilitation, patient just left [facility] on Friday she tried to go home and she could not get into the house, EMS was called and the patient was brought into the ER and she was given the option of staying in the hospital or going home she elected to go back home to try to get into the house, finally she managed to get into the house, but she laid in bed and she could not get up to go to the bathroom she had diapers on, she called me and stated that she is not able to get out of the bed and she is not able to go to the bathroom I advised her to call 911 and come to the ER for evaluation, had a CT scan of the lumbar spine that showed significant changes and surgical changes of the lumbar spine, with severe spinal stenosis bilaterally at the level of L4-L5 and L5 and S1 with a stable spinal stenosis L2-L3 with progressive degenerative disc disease as well therefore the patient was admitted to hospital for evaluation by physical therapy and Occupational Therapy, will consult spine surgery further recommendation and how to progress from here 10/24: Patient is laying down in bed in no apparent distress, she slept well last night, she continues to have quite a bit of help, she did have episode of urinary retention yesterday twice, she did have to have a straight cath, last time was about 400 cc of urine, she did have a straight cath, for a 300 mL, she still have about 190 mL and there, we will monitor the patient very closely, we will start the patient on Flomax 0.4 mg once every day, discussed with the nursing staff the need to put a Parker catheterization if her residual volume is greater than 300 at any time patient will be seen and evaluated by spine surgery hopefully in the next 24 hours, I reviewed the result of the CT scan of the lumbar spine with the patient and her at the bedside, awaiting physical therapy evaluation tomorrow morning, patient will definitely need to go to subacute rehabilitation as the patient is not able to move around at all she does have significant weakness in the right lower extremity, await spine surgery evaluation and the recommendation on how to pursue her complex medical care 10/25: Patient is sitting up in bed appears to be generally weak, appears to be pale at this time, she has not been seen by physical therapy yet, she will be seen in consultation by spine surgery for a second opinion about her significant spinal stenosis with right lower extremity weakness, patient will likely require to go to subacute rehabilitation as she is not able to ambulate at this time. 10/26: Patient sitting up in bed in no apparent distress, she continues to have significant pain rating to the right lower extremity, she appears to have tolerated her pain medicine as well as muscle laxer so far, she was seen in consultation by spine surgery as well as by pain management, it was recommended for the patient to continue with physical therapy occupational therapy increase stretching exercises, and she is scheduled to have facet block and probably sacroiliac joint injections on I will hold her Eliquis for the next 48 hours, and we will follow-up with the patient very closely. Will discuss with pain management whether or not the patient will have it as an outpatient orders and patient 4/2: Patient sitting up in the recliner chair she is in tears when I walked into the room, she is frustrated with her current condition, she is not able to move around much, she has significant weakness in the right lower extremity due to severe spinal stenosis, she was seen in consultation by spine surgery as well as pain management, she is scheduled to go for SI joint block as well as facet bloc k hopefully tomorrow morning, patient is at high risk of falling because of paresis of the right lower extremity and the fact that she has been on anticoagulation that increase her risk of intracranial bleed therefore the patient need to be admitted to an inpatient at this point in time, until is able to safely get out of the bed get to her wheelchair without falling. 3: Patient is laying down in bed in no apparent distress, patient did have pustule to the right antecubital area where the IV access was, with significant erythema and tenderness suggestive of infected thrombophlebitis of the basilic vein, IV access was removed, patient was started on IV antibiotic in the form of cefazolin 2 g every back every 8 hours, patient also will be started on K-pad to the right antecubital area, patient also will be monitored very closely, repeat her CBC in the next 24 hours, blood cultures were done as well, follow-up with the patient very closely, patient underwent SI joint block and 1 side she is going for another site tomorrow morning, she will stay off Eliquis for another 24 hours, we will follow-up with the patient in the next 24 hours if she is feeling better she can be discharged to [facility] and follow-up with her as an outpatient. 10/29: Patient is scheduled for caudal epidural steroid injection today. Procedure is scheduled late in the afternoon. Discharge plan is in place for [facility] for subacute rehab. Patient will be prepared for discharge today if arrangements can be made depending on the timing of her injection. Otherwise, plan for patient discharge tomorrow. DISCHARGE DIAGNOSES: 1. Progressive degenerative disc disease of the lumbar spine with severe spinal stenosis at L4-L5 and L5-S1 right greater than left due to disc herniations at these levels. 2. Coronary artery disease status post PCI of the LAD with recent left heart catheterization that was done July 2024 that showed evidence of left main disease 20 to 30%, LAD 40-50% stenosis where the stent is and RCA 99% stenosis with collaterals from left to right. 3. History of pulmonary medicine. 4. Paroxysmal atrial fibrillation/flutter. 5. Hypertension and hypertensive cardiovascular disease. 6. Hyperlipidemia. 7. Hypothyroidism. 8. Diabetes mellitus type 1. 9. GERD with esophagitis and had a hernia. 10. Obesity with obstructive sleep apnea and possible obesity hypoventilation syndrome. 11. Vitamin D deficiency. 12. History of kidney stones. 13. Medical debility. Greater than 35 minutes was utilized and coordinating patient's discharge. Impression and plan of care have been directed as dictated by the signing physician. Lili Lancaster nurse practitioner acting as scribe for signing physician. Plan - Discharge Summary Discharge Rx Participant: Yes New Discharge Prescriptions: New HYDROcodone/APAP 5-325MG [[place] 5-325] 1 each PO Q4HR PRN #18 tab PRN Reason: Moderate Pain (Scale 4 To 6) Pantoprazole [Protonix] 40 mg PO AC-BRKFST tab INSULIN LISPRO (HumaLOG) [HumaLOG] 0 unit SQ ACHS each Insulin Glargine (Lantus) [Lantus Vial] 24 unit SQ HS each Tamsulosin [Flomax] 0.4 mg PO PC-BRKFST cap Cephalexin [Keflex] 500 mg PO Q8HR 5 Days #15 cap Continue Losartan Potassium 100 mg PO DAILY Levothyroxine Sodium [Synthroid] 112 mcg PO DAILY Famotidine [Pepcid] 20 mg PO BID Furosemide [Lasix] 20 mg PO DAILY PRN PRN Reason: Edema methocarbamoL [Robaxin] 500 mg PO BID Apixaban [Eliquis] 5 mg PO BID Empagliflozin [Jardiance] 25 mg PO DAILY Acetaminophen Tab [Tylenol] 1,000 mg PO Q6HR PRN PRN Reason: Pain Atorvastatin [Lipitor] 40 mg PO HS Aspirin 81 mg PO DAILY tab Metoprolol Tartrate [Lopressor] 25 mg PO BID Discontinued Insulin Aspart (For Pump) [NovoLOG (For Pump)] 0.01 unit SQ-PUMP CONTINUOUS Discharge Medication List Levothyroxine Sodium [Synthroid] 112 mcg PO DAILY 05/16/19 [History] Losartan Potassium 100 mg PO DAILY 05/16/19 [History] Famotidine [Pepcid] 20 mg PO BID 04/26/20 [History] Acetaminophen Tab [Tylenol] 1,000 mg PO Q6HR PRN 08/21/24 [History] Apixaban [Eliquis] 5 mg PO BID 08/21/24 [History] Atorvastatin [Lipitor] 40 mg PO HS 08/21/24 [History] Empagliflozin [Jardiance] 25 mg PO DAILY 08/21/24 [History] Furosemide [Lasix] 20 mg PO DAILY PRN 08/21/24 [History] methocarbamoL [Robaxin] 500 mg PO BID 08/21/24 [History] Aspirin 81 mg PO DAILY tab 08/27/24 [Rx] Metoprolol Tartrate [Lopressor] 25 mg PO BID 10/23/24 [History] HYDROcodone/APAP 5-325MG [[place] 5-325] 1 each PO Q4HR PRN #18 tab 10/26/24 [Rx] Pantoprazole [Protonix] 40 mg PO AC-BRKFST tab 10/26/24 [Rx] Tamsulosin [Flomax] 0.4 mg PO PC-BRKFST cap 10/26/24 [Rx] Cephalexin [Keflex] 500 mg PO Q8HR 5 Days #15 cap 10/29/24 [Rx] INSULIN LISPRO (HumaLOG) [HumaLOG] 0 unit SQ ACHS each 10/29/24 [Rx] Insulin Glargine (Lantus) [Lantus Vial] 24 unit SQ HS each 10/29/24 [Rx] Follow up Appointment(s)/Referral(s): Teresa Fields MD [Primary Care Provider] - 1 Week ([facility] please call for follow-up appointment.) Discharge/Stand Alone Forms: Anes Pain/Wismer Instructions Discharge Disposition: TRANSFER TO SNF/ECF
[2024-10-29 14:39] VITALS: BMI 48.8
[2024-10-29] MEDS ORDERED: IOPAMIDOL M200 10 ML VIAL ONE (15:04)
[2024-10-29] MEDS ORDERED: methylPREDNISolone ACETATE 40 MG/ML 1 ML VIAL ONE (15:04)
[2024-10-29] MEDS ORDERED: MIDAZOLAM 2 MG/2 ML VIAL ONE (15:04)
[2024-10-29] MEDS ORDERED: fentaNYL (PF) 50 MCG/ML 2 ML AMP ONE (15:04)
--- NOTE | 2024-10-29 15:31 | FL ---
EXAMINATION TYPE: FL guided pain mgmt statistic DATE OF EXAM: 10/29/2024 FLUOROSCOPY pain 6.1 sec dap 0.1049 There are 2 images demonstrating caudal epidural injection. [facility], , 10/29/2024 3:29 PM
[2024-10-29 16:28] LABS: Glucose,Whole Blood 249 mg/dL (70-110)
[2024-10-29 16:30] VITALS: BP 115/69; PULSE 86; RESP 16; TEMP 98.1
--- NOTE | 2024-11-01 10:24 | P.PCN ---
Date of Procedure: 10/29/24 Preoperative Diagnosis: Procedure(s) Performed: PREOPERATIVE DIAGNOSIS:1- Lumbar post laminectomy syndrome.2-sacroiliitis POSTOPERATIVE DIAGNOSIS: Lumbar post laminectomy syndrome.2-sacroiliitis PROCEDURE: 1. Caudal epidural steroid injection under fluoroscopic guidance. (Fluoroscopy images available in the radiology department ) 2. Caudal epidurogram ANESTHESIA: Sedation with versed 2 mg ,and fentanyl 50 mcg Sedation start time:15:04 . Sedations stop time : 15:11 EBL: None. PROCEDURE INDICATION: The patient with neuropathic pain radiating distally returns for caudal epidural steroid injection. PROCEDURE DESCRIPTION: The patient was seen and identified in the preoperative area. Risks, benefits, complications, and alternatives were discussed with the patient. The patient agreed to proceed with the procedure and signed the consent, and vital signs were stable. Patient was taken to the OR and time out was completed. The patient was placed in the prone position on procedure table and a pillow was placed under the abdomen to reduce lumbar lordosis. The lumbosacral area was prepped and draped in the usual sterile fashion. Critical pause was taken. Vital signs were closely monitored during the procedure. Using lateral fluoroscopy the anterior-posterior plates of the sacrum were identified and the skin and deeper tissues corresponding into sacrococcygeal ligament were anesthetized using approximately 3 mL of 1% lidocaine. Then under fluoroscopy, a 3-1/2-inch 20-gauge Tuohy epidural needle was guided through the sacrococcygeal ligament, and into the epidural space. After negative aspiration, a 2 mL of Isovue 200 contrast dye was injected with excellent epidurogram. Again after negative aspiration for CSF, blood, and with no paresthesias, then Depo-Medrol 40mg, 2ml of 1% preservative free Lidocaine with 6 ml of preservative free normal saline(total of 10ml)solution was injected with washout of epidurogram. Needle was withdrawn intact. Skin was cleansed, and bandage was applied. COMPLICATIONS: None DISPOSITION / PLANS: The patient was placed in a supine position and transferred to the recovery area in a stable condition for observation and was discharged from the recovery room after meeting discharge criteria. Home discharge instructions given to the patient by the staff. The patient was reexamined prior to discharge. The patient will schedule a follow up in the clinic in 2-4 weeks.
== END 2024-10-29 18:21 | DRG 552 ==
LOC: EC 10:50 → 4SSUR 12:04 → OBSVTOIN 12:04 → 4SSUR 13:16
PROVIDERS: ADMIT Internal Medicine; ATTEND Internal Medicine
PROC: 3E0U3BZ Introduction of Anesthetic Agent into Joints, Percutaneous Approach (ICD-10-PCS; 2024-10-28)
PROC: 3E0U33Z Introduction of Anti-inflammatory into Joints, Percutaneous Approach (ICD-10-PCS; principal; 2024-10-28 11:30)
DX: M48.061 Spinal stenosis, lumbar region without neurogenic claudication (principal); I48.92 Unspecified atrial flutter; E10.40 Type 1 diabetes mellitus with diabetic neuropathy, unspecified; E66.01 Morbid (severe) obesity due to excess calories; E03.9 Hypothyroidism, unspecified; I11.9 Hypertensive heart disease without heart failure; Z68.42 Body mass index [BMI] 45.0-49.9, adult; J96.11 Chronic respiratory failure with hypoxia; I48.0 Paroxysmal atrial fibrillation; M46.1 Sacroiliitis, not elsewhere classified; Z79.4 Long term (current) use of insulin; Z99.81 Dependence on supplemental oxygen; M48.07 Spinal stenosis, lumbosacral region; M41.56 Other secondary scoliosis, lumbar region; I80.8 Phlebitis and thrombophlebitis of other sites; E55.9 Vitamin D deficiency, unspecified; E78.5 Hyperlipidemia, unspecified; G47.33 Obstructive sleep apnea (adult) (pediatric); G89.29 Other chronic pain; I25.10 Atherosclerotic heart disease of native coronary artery without angina pectoris; K21.00 Gastro-esophageal reflux disease with esophagitis, without bleeding; M47.26 Other spondylosis with radiculopathy, lumbar region; M51.16 Intervertebral disc disorders with radiculopathy, lumbar region; M51.17 Intervertebral disc disorders with radiculopathy, lumbosacral region; I25.2 Old myocardial infarction; Z79.01 Long term (current) use of anticoagulants; Z79.82 Long term (current) use of aspirin; Z79.84 Long term (current) use of oral hypoglycemic drugs; Z79.890 Hormone replacement therapy; Z79.899 Other long term (current) drug therapy; Z86.711 Personal history of pulmonary embolism; Z96.41 Presence of insulin pump (external) (internal); Z90.710 Acquired absence of both cervix and uterus; Z91.81 History of falling; Z95.5 Presence of coronary angioplasty implant and graft; Z82.49 Family history of ischemic heart disease and other diseases of the circulatory system
CPT/HCPCS: 36415; 62323; 72131; 80053; 81003; 82550; 83605; 83735; 84100; 85025; 85610; 85730; 87040; 93005; 99152; 99285

== ENCOUNTER 2024-11-26 15:06 | Inpatient (IN) | payer MEDICARE ==
[2024-11-26] MEDS: SODIUM CHLORIDE 0.9% 1,000 ML IV ONE (15:42)
[2024-11-26] MEDS: ONDANSETRON 4 MG/2 ML VIAL IVP STA (15:44)
--- NOTE | 2024-11-26 15:58 | ED ---
Nausea/Vomiting/Diarrhea HPI - General Chief complaint: Nausea/Vomiting/Diarrhea Stated complaint: poss GI bleed Time Seen by Provider: 11/26/24 15:20 Source: patient, EMS, RN notes reviewed, old records reviewed Mode of arrival: EMS Limitations: no limitations - History of Present Illness Initial comments: This is a 69-year-old female to the ER for evaluation patient comes in for concerns of possible upper GI bleed patient has about 2 days of vomiting vomiting is turned a little bit darker she is on Eliquis. Patient takes Eliquis for prior NM prior DVT. Patient has history of chronic pain chronic back pain and patient is at [facility] with plans for recent discharge. Otherwise no abdominal pain no fevers no shortness of breath no other complaints MD complaint: nausea, vomiting -: days(s) (2) Description of Vomiting: other (Dark returning vomiting) Description of Diarrhea: other (0) Associated Abdominal Pain: No Radiation: none Severity: mild Consistency: intermittent Improves with: none Worsens with: none Context: history of abdominal surgery, anticoagulant use Associated Symptoms: loss of appetite, nausea/vomiting - Related Data Home Medications Medication Instructions Recorded Confirmed Levothyroxine Sodium [Synthroid] 112 mcg PO DAILY@0600 05/16/19 11/26/24 Losartan Potassium 100 mg PO DAILY@0905/16/19 11/26/24 Famotidine [Pepcid] 20 mg PO BID@0900,209904/26/20 11/26/24 Acetaminophen Tab [Tylenol] 1,000 mg PO Q6HR PRN 08/21/24 11/26/24 Apixaban [Eliquis] 5 mg PO BID@0900,209908/21/24 11/26/24 Atorvastatin [Lipitor] 40 mg PO HS@209908/21/24 11/26/24 Empagliflozin [Jardiance] 25 mg PO DAILY@0908/21/24 11/26/24 methocarbamoL [Robaxin] 500 mg PO TID@0900,1300,209908/21/24 11/26/24 Metoprolol Tartrate [Lopressor] 25 mg PO BID@0900,209910/23/24 11/26/24 Aspirin 81 mg PO DAILY@0900 11/26/24 11/26/24 DULoxetine HCL [Cymbalta] 30 mg PO HS@209911/26/24 11/26/24 HYDROcodone/APAP 10-325MG [[place] 1 tab PO Q4H PRN 11/26/24 11/26/24 10-325] INSULIN LISPRO (HumaLOG) [HumaLOG] See Protocol SQ ACHS 11/26/24 11/26/24 Insulin Glargine (Lantus) [Lantus 24 unit SQ HS@209911/26/24 11/26/24 Vial] Omeprazole 20 mg PO DAILY@59911/26/24 11/26/24 Ondansetron [Zofran] 4 mg PO Q6H PRN 11/26/24 11/26/24 Potassium Chloride ER [K-Dur 20] 20 meq PO DAILY@89911/26/24 11/26/24 Tamsulosin [Flomax] 0.4 mg PO DAILY@89911/26/24 11/26/24 Torsemide [Soaanz] 40 mg PO DAILY@59911/26/24 11/26/24 Allergies Allergy/AdvReac Type Severity Reaction Status Date / Time No Known Allergies Allergy Verified 11/26/24 16:29 Review of Systems ROS Statement: Those systems with pertinent positive or pertinent negative responses have been documented in the HPI. ROS Other: All systems not noted in ROS Statement are negative. Past Medical History Past Medical History: Diabetes Mellitus, Hypertension, Myocardial Infarction (NM) Additional Past Medical History / Comment(s): hypothyroid, kidney stone, GLUCOMA, hx of PE Last Myocardial Infarction Date:: 2022 History of Any Multi-Drug Resistant Organisms: None Reported Past Surgical History: Back Surgery, Hysterectomy Additional Past Surgical History / Comment(s): kidney stones removed and stent CATARACTS REMOVED AND STENT PUT IN FOR GLUCOMA. 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, heart stent 2021 Past Anesthesia/Blood Transfusion Reactions: Previous Problems w/ Anesthesia, Postoperative Nausea & Vomiting (PONV) Additional Past Anesthesia/Blood Transfusion Reaction / Comment(s): no blood trasnfusion reaction after 1 unit of PRBC Past Psychological History: No Psychological Hx Reported Smoking Status: Never smoker Past Alcohol Use History: None Reported Past Drug Use History: None Reported - Past Family History Mother Family Medical History: No Reported History Father Additional Family Medical History / Comment(s): Heart history General Exam General appearance: alert, in no apparent distress Head exam: Present: atraumatic, normocephalic, normal inspection Eye exam: Present: normal appearance, PERRL, EOMI. Absent: scleral icterus, conjunctival injection, periorbital swelling ENT exam: Present: normal exam, mucous membranes moist Neck exam: Present: normal inspection. Absent: tenderness, meningismus, lymphadenopathy Respiratory exam: Present: normal lung sounds bilaterally. Absent: respiratory distress, wheezes, rales, rhonchi, stridor Cardiovascular Exam: Present: normal rhythm, tachycardia, normal heart sounds. Absent: systolic murmur, diastolic murmur, rubs, gallop, clicks GI/Abdominal exam: Present: soft, normal bowel sounds. Absent: distended, tenderness, guarding, rebound, rigid Extremities exam: Present: normal inspection, full ROM, normal capillary refill. Absent: tenderness, pedal edema, joint swelling, calf tenderness Back exam: Present: normal inspection Neurological exam: Present: alert, oriented X3, CN II-XII intact Psychiatric exam: Present: normal affect, normal mood Skin exam: Present: warm, dry, intact, normal color. Absent: rash Course Vital Signs 11/26/24 11/26/24 11/26/24 15:07 16:05 17:00 Temperature 98.3 F Pulse Rate 107 H 101 H 95 Pulse Rate [ Pulse Oximetery ] Respiratory 20 20 20 Rate Blood Pressure 101/36 108/59 100/34 Blood Pressure [Left Arm Sitting] O2 Sat by Pulse 100 100 100 Oximetry 11/26/24 11/26/24 11/26/24 18:15 20:36 23:56 Temperature 97.9 F Pulse Rate 97 99 75 Pulse Rate [ Pulse Oximetery ] Respiratory 20 18 14 Rate Blood Pressure 92/32 103/47 91/60 Blood Pressure [Left Arm Sitting] O2 Sat by Pulse 100 99 100 Oximetry 11/27/24 11/27/24 01:38 02:20 Temperature 97.6 F Pulse Rate 73 Pulse Rate [ 79 Pulse Oximetery ] Respiratory 16 20 Rate Blood Pressure 100/36 Blood Pressure 97/65 [Left Arm Sitting] O2 Sat by Pulse 98 95 Oximetry - Reevaluation(s) Reevaluation #1: 11/26/24 16:25 Medical records reviewed Reevaluation #2: 11/26/24 19:45 No active GI bleed here in the ER no vomiting of blood Reevaluation #3: 11/26/24 19:45 Patient informed of results questions answered Reevaluation #4: 11/26/24 16:25 Was pt. sent in by a medical professional or institution (JOSHUA Barrera, CERAMICS ARTIST, urgent care, hospital, or custodial...) When possible be specific @ -no Did you speak to anyone other than the patient for history (EMS, parent, family, police, friend...)? What history was obtained from this source @ -no Did you review nursing and triage notes (agree or disagree)? Why? @ -agree Are old charts reviewed (outside hosp., previous admission, EMS record, old EKG, old radiological studies, urgent care reports/EKG's, custodial records)? Report findings @ -yes Differential Diagnosis (chest pain, altered mental status, abdominal pain women, abdominal pain men, vaginal bleeding, weakness, fever, dyspnea, syncope, headache, dizziness, GI bleed, back pain, seizure, CVA, palpatations, mental health, musculoskeletal)? @ -prior EKG interpreted by me (3pts min.). @ -yes X-rays interpreted by me (1pt min.). @ -yes negative for acute disease CT interpreted by me (1pt min.). @ -no U/S interpreted by me (1pt. min.). @ -no What testing was considered but not performed or refused? (CT, X-rays, U/S, labs)? Why? @ -none What meds were considered but not given or refused? Why? @ -none Did you discuss the management of the patient with other professionals (professionals i.e. JOSHUA Barrera, CERAMICS ARTIST, lab, RT, psych nurse, health social work professor, vamp seamer, teacher, medical information officer, case mgr)? Give summary @ -no Was smoking cessation discussed for >3mins.? @ -no Was critical care preformed (if so, how long)? @ -yes31 Were there social determinants of health that impacted care today? How? (Homelessness, low income, unemployed, alcoholism, drug addiction, transportation, low edu. Level, literacy, decrease access to med. care, senior living, rehab)? @ -none Was there de-escalation of care discussed even if they declined (Discuss DNR or withdrawal of care, Hospice)? DNR status @ -no What co-morbidities impacted this encounter? (DM, HTN, Smoking, COPD, CAD, Cancer, CVA, ARF, Chemo, Hep., AIDS, mental health diagnosis, sleep apnea, morbid obesity)? @ -none Was patient admitted / discharged? Hospital course, mention meds given and route, prescriptions, significant lab abnormalities, going to OR and other pertinent info. @ - 69 female will be admitted for non-ST elevated NM, patient having dry heaving for 2 days likely as ACS equivalent, patient will be admitted non-ST elevated NM suspect recent NM Admitted Undiagnosed new problem with uncertain prognosis? @ -no Drug Therapy requiring intensive monitoring for toxicity (Heparin, Nitro, Insulin, Cardizem)? @ -no Were any procedures done? @ -no Diagnosis/symptom? @ -non-ST elevated NM with nausea Acute, or Chronic, or Acute on Chronic? @ -Acute Uncomplicated (without systemic symptoms) or Complicated (systemic symptoms)? @ -Complicated Side effects of treatment? @ -no Exacerbation, Progression, or Severe Exacerbation? @ -exacerbation Poses a threat to life or bodily function? How? (Chest pain, USA, NM, pneumonia, PE, COPD, DKA, ARF, appy, cholecystitis, CVA, Diverticulitis, Homicidal, Suicidal, threat to staff... and all critical care pts) @ -yes aacute ACS Reevaluation #5: Differential GI Bleed: Esophageal varices, aortoenteric fistula, Leslie-Barrera, gastritis, peptic ulcer disease, diverticulosis, inflammatory bowel disease, hemorrhoids, fissure, colitis, malignancy, Meckel's diverticulum, this is not meant to be an all- inclusive list. - Consultations Consultation #1: Spoke with To her who agrees to admit this patient Medical Decision Making - Medical Decision Making 69 female will be admitted for non-ST elevated NM, patient having dry heaving for 2 days likely as ACS equivalent, patient will be admitted non-ST elevated NM suspect recent NM - Lab Data Result diagrams: 11/27/24 02:12 11/26/24 23:15 Lab Results 11/26/24 11/26/24 11/26/24 Range/Units 15:40 15:40 15:40 WBC 12.53 H (4.50-10.00) 10*3/uL RBC 3.36 L (4.10-5.20) 10*6/uL Hgb 8.9 L (12.0-15.0) g/dL Hct 30.9 L (37.2-46.3) % MCV 92.0 (80.0-97.0) fL MCH 26.5 L (27.0-32.0) pg MCHC 28.8 L (32.0-37.0) g/dL Plt Count 272 (140-440) 10*3/uL MPV 11.3 (9.5-12.2) fL Immature Gran % (Auto) 1.0 % Neutrophils % 86.8 % Lymphocytes % 6.5 % Monocytes % 5.4 % Eosinophils % 0.0 % Basophils % 0.3 % Immature Gran # 0.12 H (0.00-0.04) 10*3/uL Neutrophils # 10.87 H (1.80-7.70) 10*3/uL Lymphocytes # 0.82 L (0.90-5.00) 10*3/uL Monocytes # 0.68 (0.20-1.00) 10*3/uL Eosinophils # 0.00 L (0.04-0.35) 10*3/uL Basophils # 0.04 (0.00-0.10) 10*3/uL PT 12.2 (10.0-12.5) sec INR 1.1 (<1.2) APTT 20.5 L (22.0-30.0) sec Sodium 137 (137-145) mmol/L Potassium 6.7 H* (3.5-5.1) mmol/L Chloride 103 (98-107) mmol/L Carbon Dioxide 11 L (22-30) mmol/L Anion Gap 23 mmol/L BUN 26 H (7-17) mg/dL Creatinine 1.11 H (0.52-1.04) mg/dL Est GFR (CKD-EPI)AfAm 58 (>60 ml/min/1.73 sqM) Est GFR (CKD-EPI)NonAf 50 (>60 ml/min/1.73 sqM) Glucose 324 H (74-99) mg/dL Lactic Ac Sepsis Rflx Plasma Lactic Acid Kilo (0.7-2.0) mmol/L Calcium 9.3 (8.4-10.2) mg/dL Phosphorus 6.8 H (2.5-4.5) mg/dL Magnesium 1.9 (1.6-2.3) mg/dL Total Bilirubin 1.1 (0.2-1.3) mg/dL AST 58 H (14-36) U/L ALT 19 (4-34) U/L Alkaline Phosphatase 83 (38-126) U/L Troponin I (0.000-0.034) ng/mL NT-Pro-B Natriuret Pep 79581 pg/mL Total Protein 7.4 (6.3-8.2) g/dL Albumin 3.8 (3.5-5.0) g/dL Lipase 38 (23-300) U/L 11/26/24 11/26/24 11/26/24 Range/Units 15:40 15:50 16:38 WBC (4.50-10.00) 10*3/uL RBC (4.10-5.20) 10*6/uL Hgb (12.0-15.0) g/dL Hct (37.2-46.3) % MCV (80.0-97.0) fL MCH (27.0-32.0) pg MCHC (32.0-37.0) g/dL Plt Count (140-440) 10*3/uL MPV (9.5-12.2) fL Immature Gran % (Auto) % Neutrophils % % Lymphocytes % % Monocytes % % Eosinophils % % Basophils % % Immature Gran # (0.00-0.04) 10*3/uL Neutrophils # (1.80-7.70) 10*3/uL Lymphocytes # (0.90-5.00) 10*3/uL Monocytes # (0.20-1.00) 10*3/uL Eosinophils # (0.04-0.35) 10*3/uL Basophils # (0.00-0.10) 10*3/uL PT (10.0-12.5) sec INR (<1.2) APTT (22.0-30.0) sec Sodium (137-145) mmol/L Potassium (3.5-5.1) mmol/L Chloride (98-107) mmol/L Carbon Dioxide (22-30) mmol/L Anion Gap mmol/L BUN (7-17) mg/dL Creatinine (0.52-1.04) mg/dL Est GFR (CKD-EPI)AfAm (>60 ml/min/1.73 sqM) Est GFR (CKD-EPI)NonAf (>60 ml/min/1.73 sqM) Glucose (74-99) mg/dL Lactic Ac Sepsis Rflx Y Plasma Lactic Acid Kilo 2.4 H* (0.7-2.0) mmol/L Calcium (8.4-10.2) mg/dL Phosphorus (2.5-4.5) mg/dL Magnesium (1.6-2.3) mg/dL Total Bilirubin (0.2-1.3) mg/dL AST (14-36) U/L ALT (4-34) U/L Alkaline Phosphatase (38-126) U/L Troponin I 4.970 H* (0.000-0.034) ng/mL NT-Pro-B Natriuret Pep pg/mL Total Protein (6.3-8.2) g/dL Albumin (3.5-5.0) g/dL Lipase (23-300) U/L 11/26/24 Range/Units 18:53 WBC (4.50-10.00) 10*3/uL RBC (4.10-5.20) 10*6/uL Hgb (12.0-15.0) g/dL Hct (37.2-46.3) % MCV (80.0-97.0) fL MCH (27.0-32.0) pg MCHC (32.0-37.0) g/dL Plt Count (140-440) 10*3/uL MPV (9.5-12.2) fL Immature Gran % (Auto) % Neutrophils % % Lymphocytes % % Monocytes % % Eosinophils % % Basophils % % Immature Gran # (0.00-0.04) 10*3/uL Neutrophils # (1.80-7.70) 10*3/uL Lymphocytes # (0.90-5.00) 10*3/uL Monocytes # (0.20-1.00) 10*3/uL Eosinophils # (0.04-0.35) 10*3/uL Basophils # (0.00-0.10) 10*3/uL PT (10.0-12.5) sec INR (<1.2) APTT (22.0-30.0) sec Sodium (137-145) mmol/L Potassium (3.5-5.1) mmol/L Chloride (98-107) mmol/L Carbon Dioxide (22-30) mmol/L Anion Gap mmol/L BUN (7-17) mg/dL Creatinine (0.52-1.04) mg/dL Est GFR (CKD-EPI)AfAm (>60 ml/min/1.73 sqM) Est GFR (CKD-EPI)NonAf (>60 ml/min/1.73 sqM) Glucose (74-99) mg/dL Lactic Ac Sepsis Rflx Plasma Lactic Acid Kilo 1.2 (0.7-2.0) mmol/L Calcium (8.4-10.2) mg/dL Phosphorus (2.5-4.5) mg/dL Magnesium (1.6-2.3) mg/dL Total Bilirubin (0.2-1.3) mg/dL AST (14-36) U/L ALT (4-34) U/L Alkaline Phosphatase (38-126) U/L Troponin I (0.000-0.034) ng/mL NT-Pro-B Natriuret Pep pg/mL Total Protein (6.3-8.2) g/dL Albumin (3.5-5.0) g/dL Lipase (23-300) U/L - EKG Data -: EKG Interpreted by Me (EKG sinus 100 NV 164 QRS 125 QTc 430) When compared to previous EKG there are: no significant change (EKG does show improvement from prior with no significant ST depression or elevation) - Radiology Data Radiology results: report reviewed (CT abdomen pelvis negative for acute disease no evidence of acute bleeding), image reviewed Critical Care Time Critical Care Time: Yes Total Critical Care Time: 31 Disposition Clinical Impression: Pulmonary edema, NSTEMI (non-ST elevated myocardial infarction), Anemia, Weakness, Nausea & vomiting Disposition: ADMITTED IP TO THIS HOSP Condition: Serious Is patient prescribed a controlled substance at d/c from ED?: No Time of Disposition: 19:00
[2024-11-26 16:16] LABS: Basophils # (A) 0.04 10*3/uL (0.00-0.10); Basophils % (A) 0.3 %; HCT 30.9 % (37.2-46.3); HGB 8.9 g/dL (12.0-15.0); Lymphocytes # (A) 0.82 10*3/uL (0.90-5.00); Lymphocytes % (A) 6.5 %; MCH 26.5 pg (27.0-32.0); MCHC 28.8 g/dL (32.0-37.0); Mean Platelet Volume 11.3 fL (9.5-12.2); Monocytes # (A) 0.68 10*3/uL (0.20-1.00); Monocytes % (A) 5.4 %; Neutrophils # (A) 10.87 10*3/uL (1.80-7.70); Neutrophils % (A) 86.8 %; Platelet Count 272 10*3/uL (140-440); RBC 3.36 10*6/uL (4.10-5.20); RDW 17.9 % (11.5-14.5); WBC 12.53 10*3/uL (4.50-10.00)
[2024-11-26 16:34] LABS: ALT 19 U/L (4-34); African American GFR (CKD) 58 (>60 ml/min/1.73 sqM); Anion Gap 23 mmol/L; Blood Urea Nitrogen 26 mg/dL (7-17); Calcium 9.3 mg/dL (8.4-10.2); Carbon Dioxide 11 mmol/L (22-30); Chloride 103 mmol/L (98-107); Glucose 324 mg/dL (74-99); Lipase 38 U/L (23-300); Non-African American GFR(CKD) 50 (>60 ml/min/1.73 sqM); Sodium 137 mmol/L (137-145); Total Bilirubin 1.1 mg/dL (0.2-1.3)
[2024-11-26 16:40] LABS: NT-Pro-B-Type Natriuretic Pept 24400 pg/mL
[2024-11-26 16:46] LABS: INR 1.1 (<1.2); Partial Thromboplastin Time 20.5 sec (22.0-30.0); Prothrombin Time 12.2 sec (10.0-12.5)
[2024-11-26 16:47] LABS: Potassium 6.7 mmol/L (3.5-5.1)
[2024-11-26 16:48] LABS: AST 58 U/L (14-36); Albumin 3.8 g/dL (3.5-5.0); Alkaline Phosphatase 83 U/L (38-126); Magnesium 1.9 mg/dL (1.6-2.3); Phosphorus 6.8 mg/dL (2.5-4.5); Total Protein 7.4 g/dL (6.3-8.2)
[2024-11-26] MEDS ORDERED: MORPHINE SULFATE 4 MG/ML SYRINGE IV PRN (19:41)
[2024-11-26] MEDS ORDERED: NITROGLYCERIN SL TABS 0.4 MG TAB SUBLINGUAL PRN (19:41)
[2024-11-26] MEDS: ASPIRIN 81 MG PO STA (20:39)
[2024-11-26] MEDS: ATORVASTATIN 80 MG TAB PO SCH (20:40)
[2024-11-26] MEDS: METOPROLOL TARTRATE 25 MG TAB PO SCH (20:40)
--- NOTE | 2024-11-26 20:45 | CT ---
EXAMINATION TYPE: CT abdomen pelvis w con DATE OF EXAM: 11/26/2024 8:13 PM COMPARISON: 08/21/2024. CLINICAL INDICATION: Female, 69 years old with history of GIB; Nausea and vomting, gen abdominal pain TECHNIQUE: Axial CT abdomen pelvis w con;Sagittal and coronal reformats were created on a separate w orkstation. Contrast used:80 mL of Isovue 300 with IV Contrast, (none if empty) Oral contrast used: without Oral Contrast (none if empty) CT DLP: 2479.8 mGycm, Automated exposure control for dose reduction was used. FINDINGS: LOWER CHEST: Large hiatal hernia. Severe coronary artery atherosclerosis. Heart is mildly enlarged fo r size. ABDOMEN LIVER: Diffusely hypoattenuating parenchyma. GALLBLADDER AND BILE DUCTS: Unremarkable. PANCREAS: Unremarkable. SPLEEN: Unremarkable. ADRENAL GLANDS: Unremarkable. KIDNEYS AND URETERS: No evidence of hydronephrosis or obstructing renal calculus. The ureters are unr emarkable. PELVIS BLADDER: No evidence for wall thickening or mass given limitations of exam. REPRODUCTIVE: The uterus is surgically absent. ABDOMEN & PELVIS STOMACH AND BOWEL: Large hiatal hernia present with large portion of the stomach in the thorax No yuni dence of bowel obstruction. The appendix is normal. PERITONEUM/RETROPERITONEUM: No evidence of pneumoperitoneum or free fluid. VASCULATURE: Severe atherosclerotic calcifications are present throughout the abdominal aorta and its branches. No evidence of aortic aneurysm. MUSCULOSKELETAL: No acute osseous abnormalities, severe degeneration changes spine with postsurgical changes at L3-L4 and L5. Vacuum disc phenomenon, disc space narrowing osteophytes and facet joint art hropathy are present. LYMPH NODES: No gross evidence for lymphadenopathy. SOFT TISSUE/ABDOMINAL WALL: Fat-containing umbilical hernia. Anasarca of the soft tissues. IMPRESSION: 1. Large hiatal hernia with a large portion of the stomach in the thorax. No evidence for bowel obst ruction. 2. No evidence for acute abdominal process. 3. Severe atherosclerosis of the arterial vasculature. 4. Atelectasis adjacent to the large hiatal hernia with the majority of the stomach in the thorax. H epatic steatosis. 5. Severe degeneration changes of the spine with postsurgical change. [facility], , 11/26/2024 8:43 PM
[2024-11-26] MEDS: MORPHINE SULFATE 4 MG/ML SYRINGE IVP STA (20:46)
[2024-11-26] MEDS: HEPARIN SODIUM 1,000 UN/ML (10ML VL) IV ONE (20:53)
[2024-11-26] MEDS: HEPARIN SOD,PORK IN 0.45% NACL 25,000 UNIT in 0.45% NACL 1 250ML.BAG IV SCH (20:54)
[2024-11-26 23:44] LABS: Basophils # (A) 0.02 10*3/uL (0.00-0.10); Basophils % (A) 0.2 %; HCT 30.2 % (37.2-46.3); HGB 8.4 g/dL (12.0-15.0); Lymphocytes # (A) 1.41 10*3/uL (0.90-5.00); Lymphocytes % (A) 11.6 %; MCH 26.5 pg (27.0-32.0); MCHC 27.8 g/dL (32.0-37.0); MCV 95.3 fL (80.0-97.0); Mean Platelet Volume 10.3 fL (9.5-12.2); Monocytes # (A) 1.11 10*3/uL (0.20-1.00); Monocytes % (A) 9.2 %; Neutrophils # (A) 9.49 10*3/uL (1.80-7.70); Neutrophils % (A) 78.3 %; Platelet Count 338 10*3/uL (140-440); RBC 3.17 10*6/uL (4.10-5.20); RDW 18.2 % (11.5-14.5); WBC 12.12 10*3/uL (4.50-10.00)
[2024-11-27 00:28] LABS: ALT 16 U/L (4-34); AST 54 U/L (14-36); African American GFR (CKD) 54 (>60 ml/min/1.73 sqM); Albumin 3.3 g/dL (3.5-5.0); Alkaline Phosphatase 83 U/L (38-126); Anion Gap 23 mmol/L; Blood Urea Nitrogen 28 mg/dL (7-17); Carbon Dioxide 13 mmol/L (22-30); Chloride 104 mmol/L (98-107); Glucose 298 mg/dL (74-99); Non-African American GFR(CKD) 47 (>60 ml/min/1.73 sqM); Sodium 140 mmol/L (137-145); Total Bilirubin 0.5 mg/dL (0.2-1.3); Total Protein 6.7 g/dL (6.3-8.2)
[2024-11-27 02:21] LABS: Mean Platelet Volume 10.2 fL (9.5-12.2); Platelet Count 325 10*3/uL (140-440)
[2024-11-27 05:49] LABS: Glucose,Whole Blood 306 mg/dL (70-110)
[2024-11-27] MEDS ORDERED: ACETAMINOPHEN TAB 500 MG TAB PO PRN (06:05)
[2024-11-27] MEDS ORDERED: ONDANSETRON ODT 4 MG TAB PO PRN (06:17)
[2024-11-27] MEDS: INSULIN LISPRO (HumaLOG) 100 UNIT/ML 10 mL VL SQ SCH (06:38)
[2024-11-27] MEDS: ASPIRIN 325 MG TAB PO SCH (08:26)
[2024-11-27] MEDS: FAMOTIDINE 20 MG TAB PO SCH (08:26)
[2024-11-27] MEDS: methocarbamoL 500 MG TAB PO SCH (08:26)
[2024-11-27] MEDS: DAPAGLIFLOZIN PROPANEDIOL 10 MG TABLET PO SCH (08:27)
[2024-11-27] MEDS ORDERED: METOPROLOL TARTRATE 25 MG TAB PO SCH (09:00)
[2024-11-27] MEDS: LOSARTAN 50 MG TAB PO SCH (10:29)
[2024-11-27] MEDS: TAMSULOSIN 0.4 MG CAP.ER.24H PO SCH (10:29)
--- NOTE | 2024-11-27 10:30 | P.CRDCN ---
History of Present Illness History of present illness: HISTORY OF PRESENT ILLNESS: This is a 69-year-old female with a past medical history significant for congestive heart failure, atrial flutter, coronary artery disease with previous stenting, chronic hypoxic respiratory failure on home oxygen, hypertension, hyperlipidemia, diabetes, and hypothyroidism. Patient follows in the office with Dr. Elkins. We have been asked to see the patient in consultation for elevated troponins. Patient examined at the bedside. Patient initially presented to the hospital with a chief complaint of nausea and vomiting. She states that she had episodes of emesis for about 24 hours. She denies any blood in her emesis. She denies having any chest pain or pressure. She denies any shortness of breath. Patient states she is feeling better this morning. DIAGNOSTICS: - EKG reveals sinus mechanism with no signs of acute ischemia. - CT abdomen pelvis: Large hiatal hernia with large portion of the stomach in the thorax. No evidence for bowel obstruction. No evidence for acute abdominal process. Severe atherosclerosis of the arterial vasculature. Atelectasis adjacent to the large hiatal hernia with the majority of the stomach in the thorax. - Laboratory data: WBC 12.12. Hemoglobin 8.4. Platelet count 338. Sodium 140. Potassium 5.0. BUN 28. Creatinine 1.17. Troponin 7.600. 9.040. - Current home cardiac medications include Eliquis 5 mg twice a day, aspirin 81 mg daily, Lipitor 40 mg at night, Jardiance 25 mg daily, losartan 100 mg daily, metoprolol tartrate 25 mg twice a day, torsemide 40 mg daily. - Most recent echocardiogram obtained in July 2024 revealed ejection fraction 10 to 15%, severely reduced global left ventricular systolic function, trace MR, trace TR - Cardiac catheterization history: July 2024 revealing 20 to 30% left main, 40 to 50% mid LAD and 99% proximal RCA stenosis with [id number] collaterals. Medical management was recommended. REVIEW OF SYSTEMS: At the time of my exam: CONSTITUTIONAL: Denies fever or chills. HEENT: Denies blurred vision, vision changes, or eye pain. Denies hemoptysis CARDIOVASCULAR: Denies chest pain. Denies orthopnea. Denies PND. Denies palpitations RESPIRATORY: Denies shortness of breath. GASTROINTESTINAL: Denies abdominal pain. Denies nausea or vomiting. HEMATOLOGIC: Denies bleeding disorders. GENITOURINARY: Denies any blood in urine. SKIN: Denies pruitis. Denies rash. PHYSICAL EXAM: VITAL SIGNS: Reviewed. GENERAL: Well-developed in no acute distress. HEENT: Head is normocephalic. Pupils are equal, round. Sclerae anicteric. Mucous membranes of the mouth are moist. Neck supple. No JVD or thyromegaly LUNGS: Respirations even and unlabored. Lungs essentially clear to auscultation bilaterally. HEART: Regular rate and rhythm. S1 and S2 heard. ABDOMEN: Soft. Nondistended. Nontender. EXTREMITIES: Normal range of motion. No clubbing or cyanosis. Peripheral pulses intact. No lower extremity edema NEUROLOGIC: Awake and alert. Oriented x 3. ASSESSMENT: Nausea and vomiting Non-STEMI History of atrial flutter, on Eliquis outpatient Coronary artery disease with previous stenting of the LAD Chronic hypoxic respiratory failure on home oxygen Chronic heart failure with reduced EF, currently euvolemic Ischemic cardiomyopathy, 10 to 15% Hypertension Hyperlipidemia Hypothyroidism Diabetes Chronic anemia PLAN: Obtain 2D echo to assess cardiac structure and function Continue to hold Eliquis Continue IV heparin Resume additional home cardiac medications Patient to undergo cardiac catheterization today with Dr. Elkins Further recommendations pending patient course Nurse practitioner note has been reviewed by physician. Signing provider agrees with the documented findings, assessment, and plan of care documented by SOUND ENGINEERING TECHNICIAN as a scribe. Past Medical History Past Medical History: Diabetes Mellitus, Hypertension, Myocardial Infarction ([place]) Additional Past Medical History / Comment(s): hypothyroid, kidney stone, GLUCOMA, hx of PE Last Myocardial Infarction Date:: 2022 History of Any Multi-Drug Resistant Organisms: None Reported Past Surgical History: Back Surgery, Hysterectomy Additional Past Surgical History / Comment(s): kidney stones removed and stent CATARACTS REMOVED AND STENT PUT IN FOR GLUCOMA. 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, heart stent 2021 Past Anesthesia/Blood Transfusion Reactions: Previous Problems w/ Anesthesia, Postoperative Nausea & Vomiting (PONV) Additional Past Anesthesia/Blood Transfusion Reaction / Comment(s): no blood trasnfusion reaction after 1 unit of PRBC Past Psychological History: No Psychological Hx Reported Smoking Status: Never smoker Past Alcohol Use History: None Reported Past Drug Use History: None Reported - Past Family History Mother Family Medical History: No Reported History Father Additional Family Medical History / Comment(s): Heart history Medications and Allergies Home Medications Medication Instructions Recorded Confirmed Type Levothyroxine Sodium [Synthroid] 112 mcg PO DAILY@59905/16/19 11/26/24 History Losartan Potassium 100 mg PO DAILY@89905/16/19 11/26/24 History Famotidine [Pepcid] 20 mg PO BID@0900,209904/26/20 11/26/24 History Acetaminophen Tab [Tylenol] 1,000 mg PO Q6HR PRN 08/21/24 11/26/24 History Apixaban [Eliquis] 5 mg PO BID@0900,209908/21/24 11/26/24 History Atorvastatin [Lipitor] 40 mg PO HS@209908/21/24 11/26/24 History Empagliflozin [Jardiance] 25 mg PO DAILY@89908/21/24 11/26/24 History methocarbamoL [Robaxin] 500 mg PO TID@0900,1300,209908/21/24 11/26/24 History Metoprolol Tartrate [Lopressor] 25 mg PO BID@0900,209910/23/24 11/26/24 History Aspirin 81 mg PO DAILY@89911/26/24 11/26/24 History DULoxetine HCL [Cymbalta] 30 mg PO HS@209911/26/24 11/26/24 History HYDROcodone/APAP 10-325MG [[place] 1 tab PO Q4H PRN 11/26/24 11/26/24 History 10-325] INSULIN LISPRO (HumaLOG) [HumaLOG] See Protocol SQ ACHS 11/26/24 11/26/24 History Insulin Glargine (Lantus) [Lantus 24 unit SQ HS@209911/26/24 11/26/24 History Vial] Omeprazole 20 mg PO DAILY@59911/26/24 11/26/24 History Ondansetron [Zofran] 4 mg PO Q6H PRN 11/26/24 11/26/24 History Potassium Chloride ER [K-Dur 20] 20 meq PO DAILY@89911/26/24 11/26/24 History Tamsulosin [Flomax] 0.4 mg PO DAILY@89911/26/24 11/26/24 History Torsemide [Soaanz] 40 mg PO DAILY@0600 11/26/24 11/26/24 History Allergies Allergy/AdvReac Type Severity Reaction Status Date / Time No Known Allergies Allergy Verified 11/26/24 16:29 Physical Exam Vitals: Vital Signs Temp Pulse Pulse Resp BP BP Pulse Ox 11/27/24 08:25 97.4 F L 77 16 92/43 100 11/27/24 04:20 97.8 F 62 18 85/55 95 11/27/24 02:20 97.6 F 79 20 97/65 95 11/27/24 01:38 73 16 100/36 98 11/26/24 23:56 97.9 F 75 14 91/60 100 11/26/24 20:36 99 18 103/47 99 11/26/24 18:15 97 20 92/32 100 11/26/24 17:00 95 20 100/34 100 11/26/24 16:05 101 H 20 108/59 100 11/26/24 15:07 98.3 F 107 H 20 101/36 100 Intake and Output 11/26/24 11/27/24 11/27/24 22:59 06:59 14:59 Intake Total 118.932 Balance 118.932 Intake: IV 5 Invasive Line 2 5 Intake, IV Titration 113.932 Amount Heparin Sod,Pork in 0.45% 113.932 NaCl 25,000 unit In 0.45 % NaCl 1 250ml.bag @ 9.18 UNITS/KG/HR 9.994 mls/hr IV .Q24H [facility] Rx#: [id number] Other: Voiding Method External Catheter # Voids 1 Weight 108.862 kg 108.5 kg Results 11/27/24 02:12 11/26/24 23:15 Cardiac Enzymes 11/26/24 11/26/24 11/26/24 Range/Units 15:40 15:50 20:02 AST 58 H (14-36) U/L Troponin I 4.970 H* 7.600 H* (0.000-0.034) ng/mL 11/26/24 11/26/24 Range/Units 23:15 23:15 AST 54 H (14-36) U/L Troponin I 9.040 H* (0.000-0.034) ng/mL Coagulation 11/26/24 11/26/24 11/27/24 Range/Units 15:40 20:02 02:12 PT 12.2 (10.0-12.5) sec APTT 20.5 L 22.2 49.2 H (22.0-30.0) sec 11/27/24 Range/Units 06:47 PT (10.0-12.5) sec APTT 44.0 H (22.0-30.0) sec CBC 11/26/24 11/26/24 11/27/24 Range/Units 15:40 23:15 02:12 WBC 12.53 H 12.12 H (4.50-10.00) 10*3/uL RBC 3.36 L 3.17 L (4.10-5.20) 10*6/uL Hgb 8.9 L 8.4 L (12.0-15.0) g/dL Hct 30.9 L 30.2 L (37.2-46.3) % Plt Count 272 338 325 (140-440) 10*3/uL Comprehensive Metabolic Panel 11/26/24 11/26/24 Range/Units 15:40 23:15 Sodium 137 140 (137-145) mmol/L Potassium 6.7 H* 5.0 (3.5-5.1) mmol/L Chloride 103 104 (98-107) mmol/L Carbon Dioxide 11 L 13 L (22-30) mmol/L BUN 26 H 28 H (7-17) mg/dL Creatinine 1.11 H 1.17 H (0.52-1.04) mg/dL Glucose 324 H 298 H (74-99) mg/dL Calcium 9.3 9.0 (8.4-10.2) mg/dL AST 58 H 54 H (14-36) U/L ALT 19 16 (4-34) U/L Alkaline Phosphatase 83 83 (38-126) U/L Total Protein 7.4 6.7 (6.3-8.2) g/dL Albumin 3.8 3.3 L (3.5-5.0) g/dL Current Medications Generic Name Dose Route Start Last Admin Trade Name Freq PRN Reason Stop Dose Admin Acetaminophen 1,000 mg 11/27/24 06:05 Acetaminophen Tab 500 Mg Tab PO Q6HR PRN Pain Hydrocodone Bitart/Acetaminophen 1 each 11/27/24 06:05 Hydrocodone/Apap 10-325mg 1 Each Tab PO Q4H PRN Pain Aspirin 325 mg 11/27/24 09:00 11/27/24 08:26 Aspirin 325 Mg Tab PO 325 mg DAILY [facility] Administration Atorvastatin Calcium 80 mg 11/26/24 19:45 11/27/24 08:27 Atorvastatin 80 Mg Tab PO 80 mg DAILY [facility] Administration Dapagliflozin 10 mg 11/27/24 09:00 11/27/24 08:27 Dapagliflozin Propanediol 10 Mg Tablet PO 10 mg DAILY [facility] Administration Duloxetine HCl 30 mg 11/27/24 21:00 Duloxetine Hcl 30 Mg Capsule.Dr PO HS [facility] Famotidine 20 mg 11/27/24 09:00 11/27/24 08:26 Famotidine 20 Mg Tab PO 20 mg DAILY [facility] Administration Heparin Sodium/Sodium Chloride 250 mls @ 9.994 mls/hr 11/26/24 19:45 11/27/24 08:18 25,000 unit/ Sodium Chloride IV 9.18 units/kg/hr .Q24H [facility] 9.994 mls/hr Titration Protocol 9.18 UNITS/KG/HR Insulin Glargine 24 unit 11/27/24 21:00 Insulin Glargine (Lantus) 100 Unit/Ml Syr SQ HS@2100 [facility] Insulin Human Lispro 0 unit 11/27/24 07:30 11/27/24 06:38 Insulin Lispro (Humalog) 100 Unit/Ml 10 Ml Vl SQ 8 unit ACHS [facility] Administration Protocol Levothyroxine Sodium 112 mcg 11/28/24 06:00 Levothyroxine 112 Mcg Tab PO DAILY@0600 [facility] Losartan Potassium 100 mg 11/27/24 09:00 Losartan 50 Mg Tab PO DAILY@0900 [facility] Methocarbamol 500 mg 11/27/24 09:00 11/27/24 08:26 Methocarbamol 500 Mg Tab PO 500 mg TID@0900,1300,2100 [facility] Administration Metoprolol Tartrate 25 mg 11/26/24 21:00 11/26/24 20:40 Metoprolol Tartrate 25 Mg Tab PO 25 mg BID [facility] Administration Morphine Sulfate 4 mg 11/26/24 19:41 Morphine Sulfate 4 Mg/Ml Syringe IV Q4HR PRN Chest Pain Nitroglycerin 0.4 mg 11/26/24 19:41 Nitroglycerin Sl Tabs 0.4 Mg Tab SUBLINGUAL Q5M PRN Chest Pain Ondansetron HCl 4 mg 11/27/24 06:17 Ondansetron Odt 4 Mg Tab PO Q6H PRN Nausea Pantoprazole Sodium 40 mg 11/28/24 06:00 Pantoprazole 40 Mg Tablet PO DAILY@0600 [facility] Tamsulosin HCl 0.4 mg 11/27/24 09:00 Tamsulosin 0.4 Mg Cap.Er.24h PO DAILY@0900 [facility] Torsemide 40 mg 11/28/24 06:00 Torsemide 20 Mg Tab PO DAILY@0600 [facility] Intake and Output 11/26/24 11/27/24 11/27/24 22:59 06:59 14:59 Intake Total 118.932 Balance 118.932 Intake: IV 5 Invasive Line 2 5 Intake, IV Titration 113.932 Amount Heparin Sod,Pork in 0.45% 113.932 NaCl 25,000 unit In 0.45 % NaCl 1 250ml.bag @ 9.18 UNITS/KG/HR 9.994 mls/hr IV .Q24H [facility] Rx#: [id number] Other: Voiding Method External Catheter # Voids 1 Weight 108.862 kg 108.5 kg 11/27/24 02:12 11/26/24 23:15
[2024-11-27 11:22] LABS: Glucose,Whole Blood 246 mg/dL (70-110)
[2024-11-27] MEDS ORDERED: ALPRAZolam 0.25 MG TAB PO PRN (11:40)
[2024-11-27] MEDS ORDERED: ASPIRIN 325 MG TAB PO STA (11:40)
[2024-11-27] MEDS ORDERED: ATORVASTATIN 80 MG TAB PO STA (11:40)
[2024-11-27] MEDS ORDERED: NITROGLYCERIN SL TABS 0.4 MG TAB SUBLINGUAL PRN (11:40)
[2024-11-27] MEDS ORDERED: ALPRAZolam 0.5 MG TAB PO PRN (11:40)
[2024-11-27] MEDS: SODIUM CHLORIDE 0.9% 500 ML 500 ML IV ONE (12:07)
--- NOTE | 2024-11-27 12:30 | P.HPIM ---
History of Present Illness H&P Date: 11/27/24 History of present illness; patient is a 69-year-old lady with past medical history significant for hypertension, diabetes mellitus, hypothyroidism, DVT who presented to the ER with concerns of nausea and vomiting for 2 days. Patient is currently resident of an extended care facility at [facility]. Apparently patient was all right on Friday night when she started having nausea followed by dry heaves which were later followed by vomiting. Nursing staff noted that the patient vomitus was dark in color and they described as coffee-ground. There was no complaint of abdominal pain. There was no complaint of any blood in the stools. There was no complaint of altered bowel movements. Denies any chest pain. There is no complaint of shortness of breath. There is no complaint of swelling of lower extremities. Because of this nausea and vomiting, patient came to the ER Initial lab work done in the ER showed WBC 12.53, hemoglobin 8.9, platelet count 272, sodium 139, potassium 6.7, BUN 26, creatinine 1.11 glucose 324, lactate 2.4 phosphorus 6.8 AST 58 troponin 4.970 proBNP 24,400 EKG done in the ER showed heart rate of 100, no ST segment elevation or depression seen, no T-wave inversions seen. CT abdomen pelvis done showed large hiatal hernia with a large portion of the stomach in the thorax. No evidence for bowel obstruction, no evidence for acute abdominal process. Severe atherosclerosis of the arterial vasculature. Patient admitted to internal medicine service REVIEW OF SYSTEMS: CONSTITUTIONAL: No fever, no malaise, no fatigue. HEENT: No recent visual problems or hearing problems. Denied any sore throat. CARDIOVASCULAR: As mentioned above PULMONARY: No shortness of breath, no cough, no hemoptysis. GASTROINTESTINAL: As mentioned above. NEUROLOGICAL: No headaches, no weakness, no numbness. HEMATOLOGICAL: Denies any bleeding or petechiae. GENITOURINARY: Denies any burning micturition, frequency, or urgency. MUSCULOSKELETAL/RHEUMATOLOGICAL: Denies any joint pain, swelling, or any muscle pain. ENDOCRINE: Denies any polyuria or polydipsia. The rest of the 14-point review of systems is negative. PHYSICAL EXAMINATION: GENERAL: The patient is alert and oriented x3, not in any acute distress. Well developed, well nourished. HEENT: Pupils are round and equally reacting to light. EOMI. No scleral icterus. No conjunctival pallor. Normocephalic, atraumatic. No pharyngeal erythema. No thyromegaly. CARDIOVASCULAR: S1 and S2 present. No murmurs, rubs, or gallops. PULMONARY: Chest is clear to auscultation, no wheezing or crackles. ABDOMEN: Soft, nontender, nondistended, normoactive bowel sounds. No palpable organomegaly. MUSCULOSKELETAL: No joint swelling or deformity. EXTREMITIES: No cyanosis, clubbing, or pedal edema. NEUROLOGICAL: Gross neurological examination did not reveal any focal deficits. SKIN: No rashes. Assessment and plan NSTEMI Hyperkalemia Hyperphosphatemia Acute kidney injury Large hiatal hernia History of diabetes mellitus History of hypertension History of hypothyroidism History of atrial flutter, on [facility] outpatient Coronary artery disease with previous stenting of the LAD Chronic hypoxic respiratory failure on home oxygen Chronic heart failure with reduced EF, currently euvolemic Ischemic cardiomyopathy, 10 to 15% Hyperlipidemia Chronic anemia Monitor vital signs Monitor CBC Monitor CMP Continue telemetry monitoring Trend troponin. Ordered 2D echo Ordered ultrasound of kidneys strict I's and O's, daily weights Low potassium diet Start pharmacy dose heparin Ordered Synthroid Ordered Lopressor Monitor blood sugar levels, continue sliding scale insulin, resume Lantus Consult cardiology Labs and medication were reviewed.. Continue same treatment. Continue with symptomatic treatment. Resume home medication. Monitor labs and vitals. DVT and GI prophylaxis. Further recommendations as per clinical course of the patient Dictation was produced using [employer] dictation software. please excuse any grammatical, word or spelling errors. Past Medical History Past Medical History: Diabetes Mellitus, Hypertension, Myocardial Infarction ([place]) Additional Past Medical History / Comment(s): hypothyroid, kidney stone, GLUCOMA, hx of PE Last Myocardial Infarction Date:: 2022 History of Any Multi-Drug Resistant Organisms: None Reported Past Surgical History: Back Surgery, Hysterectomy Additional Past Surgical History / Comment(s): kidney stones removed and stent CATARACTS REMOVED AND STENT PUT IN FOR GLUCOMA. 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, heart stent 2021 Past Anesthesia/Blood Transfusion Reactions: Previous Problems w/ Anesthesia, Postoperative Nausea & Vomiting (PONV) Additional Past Anesthesia/Blood Transfusion Reaction / Comment(s): no blood trasnfusion reaction after 1 unit of PRBC Past Psychological History: No Psychological Hx Reported Smoking Status: Never smoker Past Alcohol Use History: None Reported Past Drug Use History: None Reported - Past Family History Mother Family Medical History: No Reported History Father Additional Family Medical History / Comment(s): Heart history Medications and Allergies Home Medications Medication Instructions Recorded Confirmed Type Levothyroxine Sodium [Synthroid] 112 mcg PO DAILY@0605/16/19 11/26/24 History Losartan Potassium 100 mg PO DAILY@89905/16/19 11/26/24 History Famotidine [Pepcid] 20 mg PO BID@09,209904/26/20 11/26/24 History Acetaminophen Tab [Tylenol] 1,000 mg PO Q6HR PRN 08/21/24 11/26/24 History Apixaban [Eliquis] 5 mg PO BID@0900,209908/21/24 11/26/24 History Atorvastatin [Lipitor] 40 mg PO HS@209908/21/24 11/26/24 History Empagliflozin [Jardiance] 25 mg PO DAILY@89908/21/24 11/26/24 History methocarbamoL [Robaxin] 500 mg PO TID@0900,1300,209908/21/24 11/26/24 History Metoprolol Tartrate [Lopressor] 25 mg PO BID@0900,209910/23/24 11/26/24 History Aspirin 81 mg PO DAILY@89911/26/24 11/26/24 History DULoxetine HCL [Cymbalta] 30 mg PO HS@209911/26/24 11/26/24 History HYDROcodone/APAP 10-325MG [[place] 1 tab PO Q4H PRN 11/26/24 11/26/24 History 10-325] INSULIN LISPRO (HumaLOG) [HumaLOG] See Protocol SQ ACHS 11/26/24 11/26/24 History Insulin Glargine (Lantus) [Lantus 24 unit SQ HS@209911/26/24 11/26/24 History Vial] Omeprazole 20 mg PO DAILY@0611/26/24 11/26/24 History Ondansetron [Zofran] 4 mg PO Q6H PRN 11/26/24 11/26/24 History Potassium Chloride ER [K-Dur 20] 20 meq PO DAILY@89911/26/24 11/26/24 History Tamsulosin [Flomax] 0.4 mg PO DAILY@89911/26/24 11/26/24 History Torsemide [Soaanz] 40 mg PO DAILY@59911/26/24 11/26/24 History Allergies Allergy/AdvReac Type Severity Reaction Status Date / Time No Known Allergies Allergy Verified 11/26/24 16:29 Physical Exam Vitals: Vital Signs Temp Pulse Pulse Resp BP BP Pulse Ox 11/27/24 08:25 97.4 F L 77 16 92/43 100 11/27/24 04:20 97.8 F 62 18 85/55 95 11/27/24 02:20 97.6 F 79 20 97/65 95 11/27/24 01:38 73 16 100/36 98 11/26/24 23:56 97.9 F 75 14 91/60 100 11/26/24 20:36 99 18 103/47 99 11/26/24 18:15 97 20 92/32 100 11/26/24 17:00 95 20 100/34 100 11/26/24 16:05 101 H 20 108/59 100 11/26/24 15:07 98.3 F 107 H 20 101/36 100 Intake and Output 11/26/24 11/27/24 11/27/24 22:59 06:59 14:59 Intake Total 118.932 Balance 118.932 Intake: IV 5 Invasive Line 2 5 Intake, IV Titration 113.932 Amount Heparin Sod,Pork in 0.45% 113.932 NaCl 25,000 unit In 0.45 % NaCl 1 250ml.bag @ 9.18 UNITS/KG/HR 9.994 mls/hr IV .Q24H [facility] Rx#: [id number] Other: Voiding Method External Catheter # Voids 1 Weight 108.862 kg 108.5 kg Results CBC & Chem 7: 11/27/24 02:12 11/26/24 23:15 Labs: Abnormal Lab Results - Last 24 Hours (Table) 11/26/24 11/26/24 11/26/24 Range/Units 15:40 15:40 15:40 WBC 12.53 H (4.50-10.00) 10*3/uL RBC 3.36 L (4.10-5.20) 10*6/uL Hgb 8.9 L (12.0-15.0) g/dL Hct 30.9 L (37.2-46.3) % MCH 26.5 L (27.0-32.0) pg MCHC 28.8 L (32.0-37.0) g/dL Immature Gran # 0.12 H (0.00-0.04) 10*3/uL Neutrophils # 10.87 H (1.80-7.70) 10*3/uL Lymphocytes # 0.82 L (0.90-5.00) 10*3/uL Monocytes # (0.20-1.00) 10*3/uL Eosinophils # 0.00 L (0.04-0.35) 10*3/uL APTT 20.5 L (22.0-30.0) sec Potassium 6.7 H* (3.5-5.1) mmol/L Carbon Dioxide 11 L (22-30) mmol/L BUN 26 H (7-17) mg/dL Creatinine 1.11 H (0.52-1.04) mg/dL Glucose 324 H (74-99) mg/dL POC Glucose (mg/dL) (70-110) mg/dL Plasma Lactic Acid Kilo (0.7-2.0) mmol/L Phosphorus 6.8 H (2.5-4.5) mg/dL AST 58 H (14-36) U/L Troponin I (0.000-0.034) ng/mL Albumin (3.5-5.0) g/dL 11/26/24 11/26/24 11/26/24 Range/Units 15:40 15:50 20:02 WBC (4.50-10.00) 10*3/uL RBC (4.10-5.20) 10*6/uL Hgb (12.0-15.0) g/dL Hct (37.2-46.3) % MCH (27.0-32.0) pg MCHC (32.0-37.0) g/dL Immature Gran # (0.00-0.04) 10*3/uL Neutrophils # (1.80-7.70) 10*3/uL Lymphocytes # (0.90-5.00) 10*3/uL Monocytes # (0.20-1.00) 10*3/uL Eosinophils # (0.04-0.35) 10*3/uL APTT (22.0-30.0) sec Potassium (3.5-5.1) mmol/L Carbon Dioxide (22-30) mmol/L BUN (7-17) mg/dL Creatinine (0.52-1.04) mg/dL Glucose (74-99) mg/dL POC Glucose (mg/dL) (70-110) mg/dL Plasma Lactic Acid Kilo 2.4 H* (0.7-2.0) mmol/L Phosphorus (2.5-4.5) mg/dL AST (14-36) U/L Troponin I 4.970 H* 7.600 H* (0.000-0.034) ng/mL Albumin (3.5-5.0) g/dL 11/26/24 11/26/24 11/26/24 Range/Units 23:15 23:15 23:15 WBC 12.12 H (4.50-10.00) 10*3/uL RBC 3.17 L (4.10-5.20) 10*6/uL Hgb 8.4 L (12.0-15.0) g/dL Hct 30.2 L (37.2-46.3) % MCH 26.5 L (27.0-32.0) pg MCHC 27.8 L (32.0-37.0) g/dL Immature Gran # 0.09 H (0.00-0.04) 10*3/uL Neutrophils # 9.49 H (1.80-7.70) 10*3/uL Lymphocytes # (0.90-5.00) 10*3/uL Monocytes # 1.11 H (0.20-1.00) 10*3/uL Eosinophils # 0.00 L (0.04-0.35) 10*3/uL APTT (22.0-30.0) sec Potassium (3.5-5.1) mmol/L Carbon Dioxide 13 L (22-30) mmol/L BUN 28 H (7-17) mg/dL Creatinine 1.17 H (0.52-1.04) mg/dL Glucose 298 H (74-99) mg/dL POC Glucose (mg/dL) (70-110) mg/dL Plasma Lactic Acid Kilo (0.7-2.0) mmol/L Phosphorus (2.5-4.5) mg/dL AST 54 H (14-36) U/L Troponin I 9.040 H* (0.000-0.034) ng/mL Albumin 3.3 L (3.5-5.0) g/dL 11/27/24 11/27/24 11/27/24 Range/Units 02:12 05:45 06:47 WBC (4.50-10.00) 10*3/uL RBC (4.10-5.20) 10*6/uL Hgb (12.0-15.0) g/dL Hct (37.2-46.3) % MCH (27.0-32.0) pg MCHC (32.0-37.0) g/dL Immature Gran # (0.00-0.04) 10*3/uL Neutrophils # (1.80-7.70) 10*3/uL Lymphocytes # (0.90-5.00) 10*3/uL Monocytes # (0.20-1.00) 10*3/uL Eosinophils # (0.04-0.35) 10*3/uL APTT 49.2 H 44.0 H (22.0-30.0) sec Potassium (3.5-5.1) mmol/L Carbon Dioxide (22-30) mmol/L BUN (7-17) mg/dL Creatinine (0.52-1.04) mg/dL Glucose (74-99) mg/dL POC Glucose (mg/dL) 306 H (70-110) mg/dL Plasma Lactic Acid Kilo (0.7-2.0) mmol/L Phosphorus (2.5-4.5) mg/dL AST (14-36) U/L Troponin I (0.000-0.034) ng/mL Albumin (3.5-5.0) g/dL Thrombosis Risk Factor Assmnt - Choose All That Apply Any of the Below Risk Factors Present?: Yes Each Factor Represents 1 point: Medical pt on bed rest, Obesity (BMI >25), Swollen legs (current) Each Risk Factor Represents 2 Points: Age 61-74 years Each Risk Factor Represents 3 Points: History of DVT/PE Thrombosis Risk Factor Assessment Total Risk Factor Score: 8 Thrombosis Risk Factor Assessment Level: High Risk
[2024-11-27] MEDS: LIDOCAINE 1% INJ 10MG/ML (20 ML MDV) SQ ONE (12:34)
[2024-11-27] MEDS: IOPAMIDOL-370 100ML BTL INJ ONE (12:58)
[2024-11-27] MEDS: SODIUM CHLORIDE 0.9% 1,000 ML in EMPTY BAG 1 BAG IV SCH (13:07)
[2024-11-27] MEDS: SODIUM CHLORIDE 0.9% 1,000 ML IV SCH (13:15)
[2024-11-27] MEDS: HYDROcodone/APAP 10-325MG 1 EACH TAB PO PRN (13:29)
--- NOTE | 2024-11-27 13:44 | CA ---
Transthoracic Echo Report Name: Cara Martinez Age: 69 Gender: F : 1955 Exam Date: 11/27/2024 09:27 Exam Location: [facility] Ht (in): 62 Wt (lb): 247 Ordering Physician: Juan Esposito DO Attending/Referring Phys: [id number], Cate Flat Cutter Sandra Renteria, BEST Procedure CPT: Indications: elevTrop Cardiac Hx: Technical Quality: Poor Contrast 1: Definity Total Dose (mL): 2 Contrast 2: Total Dose (mL): MEASUREMENTS (Male / Female) Normal Values 2D ECHO LV Diastolic Diameter PLAX 5.0 cm 4.2 - 5.9 / 3.9 - 5.3 cm LV Systolic Diameter PLAX 4.8 cm IVS Diastolic Thickness 1.2 cm 0.6 - 1.0 / 0.6 - 0.9 cm LVPW Diastolic Thickness 1.1 cm 0.6 - 1.0 / 0.6 - 0.9 cm LV Relative Wall Thickness 0.5 RV Internal Dim ED PLAX 3.0 cm LA Systolic Diameter LX 4.8 cm 3.0 - 4.0 / 2.7 - 3.8 cm M-MODE Aortic Root Diameter MM 2.8 cm LA Systolic Diameter MM 4.4 cm LA Ao Ratio MM 1.6 AV Cusp Separation MM 1.3 cm DOPPLER TR Peak Velocity 234.0 cm/s TR Peak Gradient 21.9 mmHg Right Ventricular Systolic Press 36.9 mmHg FINDINGS Left Ventricle Left ventricular ejection fraction is estimated at 20-25%. Mildly increased septal wall thickness. Mildly increased posterior wall thickness. Severely reduced global left ventricular systolic function. Right Ventricle Mild right ventricular dilatation. Reduced right ventricular global systolic function. Mild pulmonary hypertension. Right Atrium Moderate right atrial dilatation. Left Atrium Severely increased left atrial diameter. Mitral Valve Aortic Valve Tricuspid Valve Pulmonic Valve Pericardium No pericardial or pleural effusion. Aorta Normal size aortic root and proximal ascending aorta. 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 Harley Gomez MD (Electronically Signed) Final Date: 27 Nov 2024 13:44
[2024-11-27 15:41] LABS: Chol/HDL Ratio 1.79 Ratio; LDL Cholesterol,Calculated 35.6 mg/dL (0.0-131.0); VLDL Calculation 18.38 mg/dL (5.00-40.00)
--- NOTE | 2024-11-27 16:22 | US ---
EXAMINATION TYPE: US kidneys/renal and bladder DATE OF EXAM: 11/27/2024 COMPARISON: CT 2024, US 2013 CLINICAL INDICATION: Female, 69 years old with history of Odalys; ODALYS TECHNIQUE: Grayscale imaging of the bilateral kidneys and urinary bladder: FINDINGS: EXAM MEASUREMENTS: Right Kidney: 9.9 x 4.9 x 4.9 cm Left Kidney: 11.8 x 4.4 x 4.6 cm Exam is very limited due to gas and body habitus Right Kidney: Very limited, No hydronephrosis or masses seen Left Kidney: Very limited, No hydronephrosis or masses seen Bladder: Appears wnl Bilateral Jets seen: No IMPRESSION: No discrete abnormality. [facility], , 11/27/2024 4:20 PM
[2024-11-27 16:34] LABS: Glucose,Whole Blood 260 mg/dL (70-110)
--- NOTE | 2024-11-27 17:36 | P.CARDCATH ---
Description of Procedure: PROCEDURES PERFORMED: Left heart catheterization, bilateral coronary angiography, ultrasound guided arterial access INDICATION: NSTEMI CONSENT:The risks, benefits and alternative therapies for the above-mentioned procedure and for both sedation/analgesia as well as necessary blood product administration, if indicated, as they pertain to this patient were discussed with the patient. The patient has indicated understanding and acceptance of the risks and procedures discussed. PROCEDURE: After the risks, benefits and alternatives of the above mentioned procedure explained in detail with the patient, informed consent was obtained. Patient was taken to the catheterization lab and prepped and draped in usual fashion. Ultrasound guidance was used to assess for arterial access. 1% lidocaine was used to anesthetize the left femoral artery. A 6-Syriac sheath was placed in the left femoral artery using modified Seldinger technique and ultrasound guidance. Left coronary angiography was performed with a 6-Syriac JL 4.0 catheter and right coronary angiography was performed with a 6-Syriac FR4 catheter in various views. A 6-Syriac FR4 catheter was inserted into the left ventricle and pressure measurements were obtained. The right radial sheath was removed and a TR band was placed with hemostasis achieved. The patient t olerated the procedure however had hypotension with sedation. Patient was transported back to the post catheterization holding area in stable condition. Conscious Sedation: Patient was monitored under the direct supervision of myself for conscious sedation using Versed and fentanyl for a total duration of 17 minutes HEMODYNAMICS: Ao: 112/68 LV: 110/11, LVEDP 21 SELECTIVE CORONARY ARTERIOGRAPHY: LEFT MAIN: The left main is a large caliber vessel which bifurcates into the LAD and circumflex. There is mild diffuse 20-30% left main stenosis. LEFT ANTERIOR DESCENDING CORONARY ARTERY: LAD is a moderate caliber vessel which wraps around to the apex. There is a patent proximal to mid LAD stent with 10- 20% instent stenosis. Diagonal 1 is small to moderate caliber with proximal 30- 40% stenosis. There is a mid LAD 30-40% stenosis unchanged from prior films. There are left to right collaterals. LEFT CIRCUMFLEX CORONARY ARTERY: Left circumflex is a moderate caliber vessel with mild 20-30% stenosis. There is a OM1 branch which has a 100% stenosis and then the AV groove circumflex with mild luminal irregularities. RIGHT CORONARY ARTERY: The right coronary artery is a small caliber vessel which gives off a PDA and PLV branch and is the dominant vessel. There is 100% proximal subtotal stenosis. FINAL IMPRESSION: 1. CAD as described above with 20-30% left main, 40-50% mid LAD and 100% proximal RCA stenosis with left to right collaterals 2. Elevated left sided filling pressures 3. Square root sign noted on LV pressure tracing which can be seen with constrictive pericarditis or restrictive cardiomyopathy PLAN: 1. Aggressive risk factor modification per most recent ACC/AHA guidelines. 2. No significant change from prior images with [id number] collaterals and would continue with medical therapy especially given CKD and concern of bleeding/anemia.
[2024-11-27 20:00] LABS: Glucose,Whole Blood 190 mg/dL (70-110)
[2024-11-27] MEDS: INSULIN GLARGINE (LANTUS) 100 UNIT/ML SYR SQ SCH (20:14)
[2024-11-27] MEDS: DULoxetine HCL 30 MG CAPSULE.DR PO SCH (20:14)
[2024-11-27] MEDS ORDERED: ATORVASTATIN 40 MG TAB PO SCH (21:00)
[2024-11-28 06:16] LABS: Glucose,Whole Blood 211 mg/dL (70-110)
[2024-11-28] MEDS: TORSEMIDE 20 MG TAB PO SCH (06:21)
[2024-11-28] MEDS: LEVOTHYROXINE 112 MCG TAB PO SCH (06:21)
[2024-11-28] MEDS: PANTOPRAZOLE 40 MG TABLET PO SCH (06:21)
[2024-11-28] MEDS ORDERED: HEPARIN SODIUM,PORCINE 10,000 UNIT in SODIUM CHLORIDE 0.9% 1,000 ML IRRIGATION PRN (07:00)
[2024-11-28] MEDS ORDERED: HEPARIN SODIUM,PORCINE (1 ML) 2,500 UNIT in SODIUM CHLORIDE 0.9% 250 ML IRRIGATION PRN (07:00)
[2024-11-28 08:03] LABS: Mean Platelet Volume 10.1 fL (9.5-12.2); Platelet Count 346 10*3/uL (140-440)
[2024-11-28] MEDS: ASPIRIN 81 MG PO SCH (08:08)
--- NOTE | 2024-11-28 10:12 | P.PN ---
Subjective HISTORY OF PRESENT ILLNESS: This is a 69-year-old female with a past medical history significant for congestive heart failure, atrial flutter, coronary artery disease with previous stenting, chronic hypoxic respiratory failure on home oxygen, hypertension, hyperlipidemia, diabetes, and hypothyroidism. Patient follows in the office with Dr. Elkins. We have been asked to see the patient in consultation for elevated troponins. Patient examined at the bedside. Patient initially presented to the hospital with a chief complaint of nausea and vomiting. She states that she had episodes of emesis for about 24 hours. She denies any blood in her emesis. She denies having any chest pain or pressure. She denies any shortness of breath. Patient states she is feeling better this morning. DIAGNOSTICS: - EKG reveals sinus mechanism with no signs of acute ischemia. - CT abdomen pelvis: Large hiatal hernia with large portion of the stomach in the thorax. No evidence for bowel obstruction. No evidence for acute abdominal process. Severe atherosclerosis of the arterial vasculature. Atelectasis adjacent to the large hiatal hernia with the majority of the stomach in the thorax. - Laboratory data: WBC 12.12. Hemoglobin 8.4. Platelet count 338. Sodium 140. Potassium 5.0. BUN 28. Creatinine 1.17. Troponin 7.600. 9.040. - Current home cardiac medications include Eliquis 5 mg twice a day, aspirin 81 mg daily, Lipitor 40 mg at night, Jardiance 25 mg daily, losartan 100 mg daily, metoprolol tartrate 25 mg twice a day, torsemide 40 mg daily. - Most recent echocardiogram obtained in July 2024 revealed ejection fraction 10 to 15%, severely reduced global left ventricular systolic function, trace MR, trace TR - Cardiac catheterization history: July 2024 revealing 20 to 30% left main, 40 to 50% mid LAD and 99% proximal RCA stenosis with [id number] collaterals. Medical management was recommended. 11/28/2024 Patient is status post cardiac catheterization with Dr. Elkins revealing 20- 30% left main, 40-50% mid LAD and 100% proximal RCA stenosis with left to right collaterals. Medical management was recommended. Patient examined at bedside. Patient currently denies any chest pain or pressure. She denies any shortness of breath. Vital signs are stable. Echocardiogram performed revealing ejection fraction 20 to 25% PHYSICAL EXAM: VITAL SIGNS: Reviewed. GENERAL: Well-developed in no acute distress. HEENT: Head is normocephalic. Pupils are equal, round. Sclerae anicteric. Mucous membranes of the mouth are moist. Neck supple. No JVD or thyromegaly LUNGS: Respirations even and unlabored. Lungs essentially clear to auscultation bilaterally. HEART: Regular rate and rhythm. S1 and S2 heard. ABDOMEN: Soft. Nondistended. Nontender. EXTREMITIES: Normal range of motion. No clubbing or cyanosis. Peripheral pulses intact. No lower extremity edema NEUROLOGIC: Awake and alert. Oriented x 3. ASSESSMENT: Nausea and vomiting Non-STEMI History of atrial flutter, on Eliquis outpatient Coronary artery disease with previous stenting of the LAD Chronic hypoxic respiratory failure on home oxygen Chronic heart failure with reduced EF, currently euvolemic Ischemic cardiomyopathy, 10 to 15%, now 2024% Hypertension Hyperlipidemia Hypothyroidism Diabetes Chronic anemia PLAN: Resume Eliquis 5 mg twice a day Continue additional cardiac medications Patient is stable for discharge back to [facility] from a cardiac standpoint Further recommendations pending patient course Nurse practitioner note has been reviewed by physician. Signing provider agrees with the documented findings, assessment, and plan of care documented by BATCH [employer]ER as a scribe. Objective - Vital Signs Vital signs: Vital Signs Temp 97.5 F L 11/28/24 07:59 Pulse 69 11/28/24 07:59 Resp 18 11/28/24 07:59 BP 98/63 11/28/24 07:59 Pulse Ox 98 11/28/24 07:59 FiO2 Intake & Output 11/27/24 11/28/24 11/28/24 18:59 06:59 18:59 Intake Total 445.910 10 Output Total 900 350 Balance -454.090 -340 Weight 108.5 kg Intake: IV 55 10 Invasive Line 1 10 Invasive Line 2 5 Intake, IV Titration 390.910 Amount Heparin Sod,Pork in 0.45% 150.910 NaCl 25,000 unit In 0.45 % NaCl 1 250ml.bag @ 9.18 UNITS/KG/HR 9.994 mls/hr IV .Q24H NATHAN Rx#: [id number] Sodium Chloride 0.9% 1, 240 000 ml @ 40 mls/hr IV . Q24H NATHAN Rx#:[id number] Output: Urine 900 350 Other: Voiding Method External Catheter External Catheter External Catheter # Voids 1 2 - Labs CBC & Chem 7: 11/28/24 07:16 11/26/24 23:15 Labs: Abnormal Lab Results - Last 24 Hours (Table) 11/27/24 11/27/24 11/27/24 Range/Units 02:12 11:21 16:31 POC Glucose (mg/dL) 246 H 260 H (70-110) mg/dL HDL Cholesterol 68.00 H (40.00-60.00) mg/dL 11/27/24 11/28/24 Range/Units 19:59 06:15 POC Glucose (mg/dL) 190 H 211 H (70-110) mg/dL HDL Cholesterol (40.00-60.00) mg/dL
[2024-11-28 10:53] LABS: Basophils # (A) 0.01 10*3/uL (0.00-0.10); Basophils % (A) 0.1 %; HCT 31.7 % (37.2-46.3); HGB 9.3 g/dL (12.0-15.0); MCH 26.7 pg (27.0-32.0); MCHC 29.3 g/dL (32.0-37.0); MCV 91.1 fL (80.0-97.0); Mean Platelet Volume 10.6 fL (9.5-12.2); Monocytes % (A) 9.3 %; Neutrophils # (A) 6.14 10*3/uL (1.80-7.70); Neutrophils % (A) 81.8 %; Platelet Count 372 10*3/uL (140-440); RBC 3.48 10*6/uL (4.10-5.20); RDW 18.3 % (11.5-14.5); WBC 7.51 10*3/uL (4.50-10.00)
[2024-11-28 11:12] LABS: ALT 29 U/L (4-34); AST 71 U/L (14-36); African American GFR (CKD) 40 (>60 ml/min/1.73 sqM); Albumin 3.3 g/dL (3.5-5.0); Alkaline Phosphatase 87 U/L (38-126); Anion Gap 11 mmol/L; Blood Urea Nitrogen 32 mg/dL (7-17); Calcium 9.2 mg/dL (8.4-10.2); Carbon Dioxide 20 mmol/L (22-30); Chloride 106 mmol/L (98-107); Glucose 174 mg/dL (74-99); Non-African American GFR(CKD) 34 (>60 ml/min/1.73 sqM); Sodium 137 mmol/L (137-145); Total Bilirubin 0.9 mg/dL (0.2-1.3); Total Protein 6.7 g/dL (6.3-8.2)
[2024-11-28 11:24] LABS: Glucose,Whole Blood 217 mg/dL (70-110)
[2024-11-28] MEDS: APIXABAN 5 MG TAB PO SCH (11:35)
--- NOTE | 2024-11-28 13:41 | P.PN ---
Subjective Progress Note Date: 11/28/24 patient is a 69-year-old lady with past medical history significant for hypertension, diabetes mellitus, hypothyroidism, DVT who presented to the ER with concerns of nausea and vomiting for 2 days. Patient is currently resident of an extended care facility at [facility]. Apparently patient was all right on Friday night when she started having nausea followed by dry heaves which were later followed by vomiting. Nursing staff noted that the patient vomitus was dark in color and they described as coffee-ground. There was no complaint of abdominal pain. There was no complaint of any blood in the stools. There was no complaint of altered bowel movements. Denies any chest pain. There is no complaint of shortness of breath. There is no complaint of swelling of lower extremities. Because of this nausea and vomiting, patient came to the ER Initial lab work done in the ER showed WBC 12.53, hemoglobin 8.9, platelet count 272, sodium 139, potassium 6.7, BUN 26, creatinine 1.11 glucose 324, lactate 2.4 phosphorus 6.8 AST 58 troponin 4.970 proBNP 24,400 EKG done in the ER showed heart rate of 100, no ST segment elevation or depression seen, no T-wave inversions seen. CT abdomen pelvis done showed large hiatal hernia with a large portion of the stomach in the thorax. No evidence for bowel obstruction, no evidence for acute abdominal process. Severe atherosclerosis of the arterial vasculature. Patient admitted to internal medicine service 11/28. Patient seen and examined. Cardiac cath done [id number]% left main, 40- 50% mid LAD and 100% proximal RCA stenosis with left to right collaterals, Elevated left sided filling pressures, Square root sign noted on LV pressure tracing which can be seen with constrictive pericarditis or restrictive cardiomyopathy. States breathing is improved. Left groin site looks good REVIEW OF SYSTEMS: CONSTITUTIONAL: No fever, no malaise,. CARDIOVASCULAR: No chest pain, no palpitations, no syncope. PULMONARY: No shortness of breath, no cough, GASTROINTESTINAL: No diarrhea, no nausea, no vomiting, no abdominal pain. NEUROLOGICAL: No headaches, no weakness, PHYSICAL EXAMINATION: GENERAL: The patient is alert and oriented x3, not in any acute distress. Well developed, well nourished. HEENT: Pupils are round and equally reacting to light. EOMI. No scleral icterus. No conjunctival pallor. Normocephalic, atraumatic. No pharyngeal erythema. No thyromegaly. CARDIOVASCULAR: S1 and S2 present. No murmurs, rubs, or gallops. PULMONARY: Chest is clear to auscultation, no wheezing or crackles. ABDOMEN: Soft, nontender, nondistended, normoactive bowel sounds. No palpable organomegaly. MUSCULOSKELETAL: No joint swelling or deformity. EXTREMITIES: No cyanosis, clubbing, or pedal edema. NEUROLOGICAL: Gross neurological examination did not reveal any focal deficits. SKIN: No rashes. Assessment and plan NSTEMI Hyperkalemia Hyperphosphatemia Acute kidney injury Large hiatal hernia History of diabetes mellitus History of hypertension History of hypothyroidism History of atrial flutter, on Eliquis outpatient Coronary artery disease with previous stenting of the LAD Chronic hypoxic respiratory failure on home oxygen Chronic heart failure with reduced EF, currently euvolemic Ischemic cardiomyopathy, 10 to 15% Hyperlipidemia Chronic anemia Monitor vital signs Monitor CBC Monitor CMP Continue telemetry monitoring Cardiac cath done [id number]% left main, 40-50% mid LAD and 100% proximal RCA stenosis with left to right collaterals, Elevated left sided filling pressures, Square root sign noted on LV pressure tracing which can be seen with constrictive pericarditis or restrictive cardiomyopathy strict I's and O's, daily weights Low potassium diet Continue aspirin, Eliquis Continue Synthroid Continue Lopressor Monitor blood sugar levels, continue sliding scale insulin, continue Lantus Cardiology following Labs and medication were reviewed.. Continue same treatment. Continue with symptomatic treatment. Resume home medication. Monitor labs and vitals. DVT and GI prophylaxis. Further recommendations as per clinical course of the patient Dictation was produced using [employer] dictation software. please excuse any grammatical, word or spelling errors. Objective - Vital Signs Vital signs: Vital Signs Temp 97.5 F L 11/28/24 07:59 Pulse 69 11/28/24 07:59 Resp 18 11/28/24 07:59 BP 98/63 11/28/24 07:59 Pulse Ox 98 11/28/24 07:59 FiO2 Intake & Output 11/27/24 11/28/24 11/28/24 18:59 06:59 18:59 Intake Total 445.910 10 Output Total 900 350 Balance -454.090 -340 Weight 108.5 kg Intake: IV 55 10 Invasive Line 1 10 Invasive Line 2 5 Intake, IV Titration 390.910 Amount Heparin Sod,Pork in 0.45% 150.910 NaCl 25,000 unit In 0.45 % NaCl 1 250ml.bag @ 9.18 UNITS/KG/HR 9.994 mls/hr IV .Q24H NATHAN Rx#: [id number] Sodium Chloride 0.9% 1, 240 000 ml @ 40 mls/hr IV . Q24H NATHAN Rx#:[id number] Output: Urine 900 350 Other: Voiding Method External Catheter External Catheter External Catheter # Voids 1 2 - Labs CBC & Chem 7: 11/28/24 07:16 11/28/24 07:16 Labs: Abnormal Lab Results - Last 24 Hours (Table) 11/27/24 11/27/24 11/27/24 Range/Units 02:12 11:21 16:31 POC Glucose (mg/dL) 246 H 260 H (70-110) mg/dL HDL Cholesterol 68.00 H (40.00-60.00) mg/dL 11/27/24 11/28/24 Range/Units 19:59 06:15 POC Glucose (mg/dL) 190 H 211 H (70-110) mg/dL HDL Cholesterol (40.00-60.00) mg/dL
[2024-11-28 16:19] LABS: Glucose,Whole Blood 233 mg/dL (70-110)
[2024-11-28 20:11] LABS: Glucose,Whole Blood 195 mg/dL (70-110)
[2024-11-28 23:54] LABS: Appearance,Urine Cloudy (Clear); Bacteria,Urine Occasional /hpf; Bilirubin,Urine Negative (Negative); Blood,Urine Trace (Negative); Color,Urine Yellow; Glucose,Urine (UA) 3+ (Negative); Hyaline Casts,Urine 44 /lpf (0-2); Hyphae Yeast, Urine Rare /hpf; Ketones,Urine Negative (Negative); Leukocyte Esterase,Urine Small (Negative); Mucus,Urine Rare /hpf; Nitrite,Urine Negative (Negative); Protein,Urine Negative (Negative); RBC,Urine 1 /hpf (0-5); Specific Gravity,Urine 1.025 (1.001-1.035); Squamous Epithelial Cell,Urine 20 /hpf (0-4); Urobilinogen,Urine <2.0 mg/dL (<2.0); WBC,Urine 3 /hpf (0-5)
[2024-11-29 06:21] LABS: Glucose,Whole Blood 167 mg/dL (70-110)
[2024-11-29 06:57] LABS: African American GFR (CKD) 37 (>60 ml/min/1.73 sqM); Albumin 3.1 g/dL (3.5-5.0); Alkaline Phosphatase 108 U/L (38-126); Anion Gap 11 mmol/L; Blood Urea Nitrogen 41 mg/dL (7-17); Calcium 8.6 mg/dL (8.4-10.2); Carbon Dioxide 22 mmol/L (22-30); Chloride 106 mmol/L (98-107); Glucose 160 mg/dL (74-99); Non-African American GFR(CKD) 32 (>60 ml/min/1.73 sqM); Potassium 4.9 mmol/L (3.5-5.1); Sodium 139 mmol/L (137-145); Total Bilirubin 0.9 mg/dL (0.2-1.3); Total Protein 6.6 g/dL (6.3-8.2)
[2024-11-29 07:02] LABS: Basophils # (A) 0.02 10*3/uL (0.00-0.10); Basophils % (A) 0.2 %; HCT 29.6 % (37.2-46.3); HGB 8.7 g/dL (12.0-15.0); Lymphocytes # (A) 0.94 10*3/uL (0.90-5.00); Lymphocytes % (A) 9.6 %; MCH 26.3 pg (27.0-32.0); MCHC 29.4 g/dL (32.0-37.0); MCV 89.4 fL (80.0-97.0); Mean Platelet Volume 10.6 fL (9.5-12.2); Monocytes # (A) 0.56 10*3/uL (0.20-1.00); Monocytes % (A) 5.7 %; Neutrophils % (A) 83.9 %; Platelet Count 319 10*3/uL (140-440); RBC 3.31 10*6/uL (4.10-5.20); RDW 18.3 % (11.5-14.5); WBC 9.78 10*3/uL (4.50-10.00)
[2024-11-29 07:40] LABS: ALT 878 U/L (4-34)
[2024-11-29 07:53] LABS: AST 2413 U/L (14-36)
[2024-11-29] MEDS: LOSARTAN 50 MG TAB PO SCH (08:56)
--- NOTE | 2024-11-29 09:22 | P.PN ---
Subjective Progress Note Date: 11/29/24 HISTORY OF PRESENT ILLNESS: patient is a 69-year-old lady with past medical history significant for hyper tension, diabetes mellitus, hypothyroidism, DVT who presented to the ER with concerns of nausea and vomiting for 2 days. Patient is currently resident of an extended care facility at [facility]. Apparently patient was all right on Friday night when she started having nausea followed by dry heaves which were later followed by vomiting. Nursing staff noted that the patient vomitus was dark in color and they described as coffee-ground. There was no complaint of abdominal pain. There was no complaint of any blood in the stools. There was no complaint of altered bowel movements. Denies any chest pain. There is no complaint of shortness of breath. There is no complaint of swelling of lower extremities. Because of this nausea and vomiting, patient came to the ER Initial lab work done in the ER showed WBC 12.53, hemoglobin 8.9, platelet count 272, sodium 139, potassium 6.7, BUN 26, creatinine 1.11 glucose 324, lactate 2.4 phosphorus 6.8 AST 58 troponin 4.970 proBNP 24,400 EKG done in the ER showed heart rate of 100, no ST segment elevation or depression seen, no T-wave inversions seen. CT abdomen pelvis done showed large hiatal hernia with a large portion of the stomach in the thorax. No evidence for bowel obstruction, no evidence for acute abdominal process. Severe atherosclerosis of the arterial vasculature. Patient admitted to internal medicine service 11/28. Patient seen and examined. Cardiac cath done -12% left main, 40- 50% mid LAD and 100% proximal RCA stenosis with left to right collaterals, Elevated left sided filling pressures, Square root sign noted on LV pressure tracing which can be seen with constrictive pericarditis or restrictive cardiomyopathy. States breathing is improved. Left groin site looks good 11/29: Patient is laying down in bed in no apparent distress, her oxygen was off, I placed her on 2 L nasal cannula her current oxygen saturation 97% on 2 L nasal cannula, her blood pressure appears to be marginal at this time, will decrease her losartan to 50 mg once every day will put parameter today to hold for systolic blood pressure less than 100, continue metoprolol, hold torsemide as well, follow-up the patient very closely, patient did have a left heart catheterization yesterday that showed evidence of severe cardiomyopathy we will continue current treatment plan, continue to follow-up with cardiology, physical therapy evaluation, manager social responsibility consultation for discharge planning REVIEW OF SYSTEMS: Constitutional: No documented fever, no chills, no night sweats. No weight change. No weakness, fatigue or lethargy. No daytime sleepiness. EENT: No headache. No blurred vision or double vision, no loss of vision. No loss of Hearing, no ringing in the ears, no dizziness. No nasal drainage or congestion. No epistaxis. No sore throat. Lungs: No shortness of breath, no cough, no sputum production. No wheezing. Reports dyspnea with activity. Cardiovascular: No chest pain, no lower extremity edema. No palpitations. No paroxysmal nocturnal dyspnea. No orthopnea. No lightheadedness or dizziness. No syncopal episodes. Abdominal: Reports no abdominal pain. No nausea, vomiting. No diarrhea. No constipation. No bloody or tarry stools reports loss of appetite. Genitourinary: No dysuria, increased frequency, urgency. No urinary retention. Musculoskeletal: No myalgias. No muscle weakness, positive gait dysfunction, no frequent falls. Positive back pain. No neck pain. Integumentary: No wounds, no lesions. No rash or pruritus. No unusual bruising. No change in hair or nails. Neurologic: No aphasia. No facial droop. No change in mentation. No head injury. No headache. No paralysis. No paresthesia. Psychiatric: No depression. No anxiety. No mood swings. Endocrine: No abnormal blood sugars. No weight change. PHYSICAL EXAMINATION: General: 69-year-old female laying down in bed in no apparent distress HEENT: Head is atraumatic, normocephalic, pupils were equal round reactive to light and recommendation, extraocular muscle movement were intact, sclera nonicteric, conjunctivae were pale, mucous membranes of the mouth are somewhat dry. Neck: Supple, no JVP, normal carotid upstroke bilaterally, no lymphadenopathy. Chest: Decreased breath sounds at the bases, few rhonchi, no expiratory wheezes, no chest wall tenderness, no intercostal retractions. Heart: First heart sound is normal, second heart sounds normal there is systolic ejection murmur 2 over systolic in the left sternal border Abdomen: Soft, nontender, nondistended, positive bowel sounds. Extremities: There is no edema no calf tenderness DP +2 bilaterally. Neurologic examination: Patient is awake alert and oriented x3, cranial nerves II-12 appear grossly intact, muscle power were 5 out of 5 in upper extremities and 4out of 5 in bilateral lower extremities, deep tendon reflexes normal bilaterally. ASSESSMENT AND PLAN: 1. NSTEMI. Status post left heart catheterization that showed evidence of ezequiel ateral from left to right it was recommended to continue aggressive risk factor modification and medical therapy, continue patient on metoprolol 25 mg orally twice every day, aspirin 81 mg once every day, as well as atorvastatin 80 mg once every day. 2.Hyperkalemia. Resolved. Repeated labs today showed normal potassium 3.Hyperphosphatemia resolved. 4.Acute kidney injury. Encourage oral intake of fluid, hold torsemide for today repeat CMP tomorrow morning. 5.Large hiatal hernia. Avoid carbonated beverages keep the head of the bed elevated. Patient is not a candidate for surgical intervention per 6.History of diabetes mellitus type II. Continue Lantus 24 units at bedtime along with a sliding scale insulin. Continue to check blood glucose before each meal and bedtime. 7.History of hypertension currently her blood pressure is marginal decrease losartan to 50 mg once every day continue metoprolol 25 mg orally twice every day, monitor the patient blood pressure very closely 8.History of hypothyroidism continue Synthroid 112 mcg orally once every day monitor the patient TSH and free T4 9.History of atrial flutter, continue patient on Eliquis 5 mg orally twice every day, metoprolol 25 mg orally twice every day 10.Coronary artery disease with previous stenting of the LAD status post left heart catheterization that showed stable findings with collateral from left to right, continue patient on any treatment as in the first Paragraph. 11.Chronic hypoxic respiratory failure on home oxygen. Continue patient on oxygen 2 L nasal cannula 12.Chronic heart failure with reduced EF, currently euvolemic continue patient on metoprolol 25 mg orally twice every day, losartan 50 mg once every day, Farxiga 10 mg once every day. Hold torsemide for today 13.Ischemic cardiomyopathy, 10 to 15% continue treatment as in the previous Paragraph. 14.Hyperlipidemia. Continue atorvastatin 80 mg once every day, monitor lipid panel, keep LDL less than 50. 15. Elevated liver function test. AST and ALT. Likely due to shock liver along with the use of medication discontinue methocarbamol, discontinue Tylenol, keep Emden as needed, discontinue atorvastatin for now, repeat CMP tomorrow morning, ultrasound of liver will be done urgently check ammonia level, check prothrombin time, INR, check PTT. 16. DVT prophylaxis. Currently on Eliquis 5 mg orally twice every day 17. spondylosis of the lumbar spine continue patient on morphine as well as Emden as needed continue methocarbamol as needed as well. 18. Physical therapy/Occupational Therapy evaluation. 19. warm in worker consultation for discharge planning. Objective - Vital Signs Vital signs: Vital Signs Temp 98.1 F 11/28/24 20:39 Pulse 77 11/29/24 03:51 Resp 18 11/29/24 03:51 BP 89/47 11/29/24 03:51 Pulse Ox 95 11/29/24 03:51 FiO2 Intake & Output 11/28/24 11/29/24 11/29/24 18:59 06:59 18:59 Intake Total 70 Output Total 950 50 250 Balance -880 -50 -250 Weight 91 kg Intake: IV 10 Invasive Line 1 10 Oral 60 Output: Urine 950 50 250 Other: Voiding Method External Catheter External Catheter # Voids 2 - Labs CBC & Chem 7: 11/29/24 06:25 11/29/24 06:25 Labs: Abnormal Lab Results - Last 24 Hours (Table) 11/28/24 11/28/24 11/28/24 Range/Units 07:16 07:16 11:22 RBC 3.48 L (4.10-5.20) 10*6/uL Hgb 9.3 L (12.0-15.0) g/dL Hct 31.7 L (37.2-46.3) % MCH 26.7 L (27.0-32.0) pg MCHC 29.3 L (32.0-37.0) g/dL Immature Gran # 0.06 H (0.00-0.04) 10*3/uL Neutrophils # (1.80-7.70) 10*3/uL Lymphocytes # 0.60 L (0.90-5.00) 10*3/uL Eosinophils # 0.00 L (0.04-0.35) 10*3/uL Potassium 6.0 H (3.5-5.1) mmol/L Carbon Dioxide 20 L (22-30) mmol/L BUN 32 H (7-17) mg/dL Creatinine 1.52 H (0.52-1.04) mg/dL Glucose 174 H (74-99) mg/dL POC Glucose (mg/dL) 217 H (70-110) mg/dL AST 71 H (14-36) U/L ALT (4-34) U/L Albumin 3.3 L (3.5-5.0) g/dL Urine Appearance (Clear) Urine Glucose (UA) (Negative) Urine Blood (Negative) Ur Leukocyte Esterase (Negative) Ur Squamous Epith Cells (0-4) /hpf Urine Bacteria (None) /hpf Hyaline Casts (0-2) /lpf Urine Mucus (None) /hpf 11/28/24 11/28/24 11/28/24 Range/Units 16:17 20:09 23:32 RBC (4.10-5.20) 10*6/uL Hgb (12.0-15.0) g/dL Hct (37.2-46.3) % MCH (27.0-32.0) pg MCHC (32.0-37.0) g/dL Immature Gran # (0.00-0.04) 10*3/uL Neutrophils # (1.80-7.70) 10*3/uL Lymphocytes # (0.90-5.00) 10*3/uL Eosinophils # (0.04-0.35) 10*3/uL Potassium (3.5-5.1) mmol/L Carbon Dioxide (22-30) mmol/L BUN (7-17) mg/dL Creatinine (0.52-1.04) mg/dL Glucose (74-99) mg/dL POC Glucose (mg/dL) 233 H 195 H (70-110) mg/dL AST (14-36) U/L ALT (4-34) U/L Albumin (3.5-5.0) g/dL Urine Appearance Cloudy H (Clear) Urine Glucose (UA) 3+ H (Negative) Urine Blood Trace H (Negative) Ur Leukocyte Esterase Small H (Negative) Ur Squamous Epith Cells 20 H (0-4) /hpf Urine Bacteria Occasional H (None) /hpf Hyaline Casts 44 H (0-2) /lpf Urine Mucus Rare H (None) /hpf 05/05/25 05/05/25 05/05/25 Range/Units 06:17 06:25 06:25 RBC 3.31 L (4.10-5.20) 10*6/uL Hgb 8.7 L (12.0-15.0) g/dL Hct 29.6 L (37.2-46.3) % MCH 26.3 L (27.0-32.0) pg MCHC 29.4 L (32.0-37.0) g/dL Immature Gran # 0.06 H (0.00-0.04) 10*3/uL Neutrophils # 8.20 H (1.80-7.70) 10*3/uL Lymphocytes # (0.90-5.00) 10*3/uL Eosinophils # 0.00 L (0.04-0.35) 10*3/uL Potassium (3.5-5.1) mmol/L Carbon Dioxide (22-30) mmol/L BUN 41 H (7-17) mg/dL Creatinine 1.60 H (0.52-1.04) mg/dL Glucose 160 H (74-99) mg/dL POC Glucose (mg/dL) 167 H (70-110) mg/dL AST 2413 H (14-36) U/L ALT 878 H (4-34) U/L Albumin 3.1 L (3.5-5.0) g/dL Urine Appearance (Clear) Urine Glucose (UA) (Negative) Urine Blood (Negative) Ur Leukocyte Esterase (Negative) Ur Squamous Epith Cells (0-4) /hpf Urine Bacteria (None) /hpf Hyaline Casts (0-2) /lpf Urine Mucus (None) /hpf
--- NOTE | 2024-11-29 10:08 | US ---
EXAMINATION TYPE: US liver DATE OF EXAM: 11/29/2024 COMPARISON: CT 2024 CLINICAL INDICATION: Female, 69 years old with history of elevated LFTs; TECHNIQUE: Grayscale and color Doppler imaging of the right upper quadrant was performed. FINDINGS: EXAM MEASUREMENTS: Liver Length: 17.0 cm Gallbladder Wall: 0.2 cm CBD: 0.3 cm Occupational Therapy Assistant notes: Exam done portable Difficult and limited study due to patient body habitus Pancreas: obscured by overlying midline bowel gas Liver: scanned intercostally - limited visualization, measures in upper limits of normal, attenuatin g, heterogeneous Gallbladder: 1.6cm gallstone.patient unable to roll. Gallbladder shows no hydropic change or wall thickening. Evidence for sonographic Huffman's sign: no CBD: visualized portions wnl, limited by overlying bowel gas IMPRESSION: 1. Technically limited assessment due to bowel gas, need for intercostal scanning, body habitus, and portable technique. 2. There may be underlying hepatic steatosis or other nonspecific hepatocellular disease. 3. A 1.6 cm gallstone. No ancillary imaging findings of acute cholecystitis. 4. No biliary ductal dilatation. [facility], Workstation: [id number], 11/29/2024 10:06 AM
[2024-11-29 10:42] LABS: INR 1.6 (<1.2); Partial Thromboplastin Time 23.3 sec (22.0-30.0); Prothrombin Time 16.6 sec (10.0-12.5)
[2024-11-29 11:16] LABS: Glucose,Whole Blood 167 mg/dL (70-110)
--- NOTE | 2024-11-29 12:53 | P.PN ---
Subjective Progress Note Date: 11/29/24 HISTORY OF PRESENT ILLNESS: This is a 69-year-old female with a past medical history significant for co ngestive heart failure, atrial flutter, coronary artery disease with previous stenting, chronic hypoxic respiratory failure on home oxygen, hypertension, hyperlipidemia, diabetes, and hypothyroidism. Patient follows in the office with Dr. Elkins. We have been asked to see the patient in consultation for elevated troponins. Patient examined at the bedside. Patient initially presented to the hospital with a chief complaint of nausea and vomiting. She states that she had episodes of emesis for about 24 hours. She denies any blood in her emesis. She denies having any chest pain or pressure. She denies any shortness of breath. Patient states she is feeling better this morning. DIAGNOSTICS: - EKG reveals sinus mechanism with no signs of acute ischemia. - CT abdomen pelvis: Large hiatal hernia with large portion of the stomach in the thorax. No evidence for bowel obstruction. No evidence for acute abdominal process. Severe atherosclerosis of the arterial vasculature. Atelectasis adjacent to the large hiatal hernia with the majority of the stomach in the thorax. - Laboratory data: WBC 12.12. Hemoglobin 8.4. Platelet count 338. Sodium 140. Potassium 5.0. BUN 28. Creatinine 1.17. Troponin 7.600. 9.040. - Current home cardiac medications include Eliquis 5 mg twice a day, aspirin 81 mg daily, Lipitor 40 mg at night, Jardiance 25 mg daily, losartan 100 mg daily, metoprolol tartrate 25 mg twice a day, torsemide 40 mg daily. - Most recent echocardiogram obtained in July 2024 revealed ejection fraction 10 to 15%, severely reduced global left ventricular systolic function, trace MR, trace TR - Cardiac catheterization history: July 2024 revealing 20 to 30% left main, 40 to 50% mid LAD and 99% proximal RCA stenosis with [id number] collaterals. Medical management was recommended. 11/28/2024 Patient is status post cardiac catheterization with Dr. Elkins revealing 20- 30% left main, 40-50% mid LAD and 100% proximal RCA stenosis with left to right collaterals. Medical management was recommended. Patient examined at bedside. Patient currently denies any chest pain or pressure. She denies any shortness of breath. Vital signs are stable. Echocardiogram performed revealing ejection fraction 20 to 25% 11/29 Patient seen and examined. Patient is somewhat lethargic from her baseline today. Also liver enzymes are significantly elevated. Robaxin was discontinued as well as Xanax and morphine which patient had not received. Blood pressures have been low during the night 89/47, improved this morning to 118/52. Losartan will be decreased. Heart rate is running in the 60s to 80s, pulse ox 95% on 2 L nasal cannula. Repeat blood work reveals hemoglobin 8.7, INR 1.6, BUN 41 creatinine 1.6. AST 2413, ALT 878. PHYSICAL EXAM: VITAL SIGNS: Reviewed. GENERAL: Well-developed in no acute distress. HEENT: Head is normocephalic. Pupils are equal, round. Sclerae anicteric. Mucous membranes of the mouth are moist. Neck supple. No JVD or thyromegaly LUNGS: Respirations even and unlabored. Lungs essentially clear to auscultation bilaterally. HEART: Regular rate and rhythm. S1 and S2 heard. ABDOMEN: Soft. Nondistended. Nontender. EXTREMITIES: No clubbing or cyanosis. Peripheral pulses intact. No lower extremity edema ASSESSMENT: Nausea and vomiting Non-STEMI History of atrial flutter, on Eliquis outpatient Coronary artery disease with previous stenting of the LAD Chronic hypoxic respiratory failure on home oxygen Chronic heart failure with reduced EF, currently euvolemic Ischemic cardiomyopathy, 10 to 15%, now 202% Hypertension Hyperlipidemia Hypothyroidism Diabetes Chronic anemia Elevated liver function test PLAN: Continue home cardiac medications: Eliquis, aspirin, Jardiance, metoprolol tartrate 25 mg twice daily, Demadex 40 mg daily Decrease losartan to 25 mg daily Plan to resume atorvastatin once liver function test are improved No further cardiac workup at this time Cardiology will sign off this case and follow on an as-needed basis. Please reconsult for any new concerns. Patient may follow-up in the office in one to [address] Elkins. Nurse practitioner note has been reviewed by physician. Signing provider agrees with the documented findings, assessment, and plan of care documented by EXAM PROCTOR as a scribe. Objective - Vital Signs Vital signs: Vital Signs Temp 98 F 11/29/24 11:30 Pulse 64 11/29/24 11:30 Resp 16 11/29/24 11:30 BP 102/65 11/29/24 11:30 Pulse Ox 99 11/29/24 11:30 FiO2 Intake & Output 11/28/24 11/29/24 11/29/24 18:59 06:59 18:59 Intake Total 70 180 Output Total 950 50 250 Balance -880 -50 -70 Weight 91 kg Intake: IV 10 Invasive Line 1 10 Oral 60 180 Output: Urine 950 50 250 Other: Voiding Method External Catheter External Catheter External Catheter # Voids 2 - Labs CBC & Chem 7: 11/29/24 06:25 11/29/24 06:25 Labs: Abnormal Lab Results - Last 24 Hours (Table) 11/28/24 11/28/24 11/28/24 Range/Units 16:17 20:09 23:32 RBC (4.10-5.20) 10*6/uL Hgb (12.0-15.0) g/dL Hct (37.2-46.3) % MCH (27.0-32.0) pg MCHC (32.0-37.0) g/dL Immature Gran # (0.00-0.04) 10*3/uL Neutrophils # (1.80-7.70) 10*3/uL Eosinophils # (0.04-0.35) 10*3/uL PT (10.0-12.5) sec INR (<1.2) BUN (7-17) mg/dL Creatinine (0.52-1.04) mg/dL Glucose (74-99) mg/dL POC Glucose (mg/dL) 233 H 195 H (70-110) mg/dL AST (14-36) U/L ALT (4-34) U/L Albumin (3.5-5.0) g/dL Urine Appearance Cloudy H (Clear) Urine Glucose (UA) 3+ H (Negative) Urine Blood Trace H (Negative) Ur Leukocyte Esterase Small H (Negative) Ur Squamous Epith Cells 20 H (0-4) /hpf Urine Bacteria Occasional H (None) /hpf Hyaline Casts 44 H (0-2) /lpf Urine Mucus Rare H (None) /hpf 11/29/24 11/29/24 11/29/24 Range/Units 06:17 06:25 06:25 RBC 3.31 L (4.10-5.20) 10*6/uL Hgb 8.7 L (12.0-15.0) g/dL Hct 29.6 L (37.2-46.3) % MCH 26.3 L (27.0-32.0) pg MCHC 29.4 L (32.0-37.0) g/dL Immature Gran # 0.06 H (0.00-0.04) 10*3/uL Neutrophils # 8.20 H (1.80-7.70) 10*3/uL Eosinophils # 0.00 L (0.04-0.35) 10*3/uL PT (10.0-12.5) sec INR (<1.2) BUN 41 H (7-17) mg/dL Creatinine 1.60 H (0.52-1.04) mg/dL Glucose 160 H (74-99) mg/dL POC Glucose (mg/dL) 167 H (70-110) mg/dL AST 2413 H (14-36) U/L ALT 878 H (4-34) U/L Albumin 3.1 L (3.5-5.0) g/dL Urine Appearance (Clear) Urine Glucose (UA) (Negative) Urine Blood (Negative) Ur Leukocyte Esterase (Negative) Ur Squamous Epith Cells (0-4) /hpf Urine Bacteria (None) /hpf Hyaline Casts (0-2) /lpf Urine Mucus (None) /hpf 11/29/24 11/29/24 Range/Units 10:12 11:14 RBC (4.10-5.20) 10*6/uL Hgb (12.0-15.0) g/dL Hct (37.2-46.3) % MCH (27.0-32.0) pg MCHC (32.0-37.0) g/dL Immature Gran # (0.00-0.04) 10*3/uL Neutrophils # (1.80-7.70) 10*3/uL Eosinophils # (0.04-0.35) 10*3/uL PT 16.6 H (10.0-12.5) sec INR 1.6 H (<1.2) BUN (7-17) mg/dL Creatinine (0.52-1.04) mg/dL Glucose (74-99) mg/dL POC Glucose (mg/dL) 167 H (70-110) mg/dL AST (14-36) U/L ALT (4-34) U/L Albumin (3.5-5.0) g/dL Urine Appearance (Clear) Urine Glucose (UA) (Negative) Urine Blood (Negative) Ur Leukocyte Esterase (Negative) Ur Squamous Epith Cells (0-4) /hpf Urine Bacteria (None) /hpf Hyaline Casts (0-2) /lpf Urine Mucus (None) /hpf
[2024-11-29 16:09] LABS: Glucose,Whole Blood 172 mg/dL (70-110)
[2024-11-29 20:12] LABS: Glucose,Whole Blood 139 mg/dL (70-110)
[2024-11-30 06:11] LABS: Glucose,Whole Blood 137 mg/dL (70-110)
[2024-11-30 06:18] LABS: Glucose,Whole Blood 124 mg/dL (70-110)
[2024-11-30 07:13] LABS: Basophils # (A) 0.04 10*3/uL (0.00-0.10); Basophils % (A) 0.6 %; Eosinophils # (A) 0.04 10*3/uL (0.04-0.35); Eosinophils % (A) 0.6 %; HCT 29.2 % (37.2-46.3); HGB 8.9 g/dL (12.0-15.0); Lymphocytes # (A) 1.13 10*3/uL (0.90-5.00); Lymphocytes % (A) 16.3 %; MCH 26.2 pg (27.0-32.0); MCHC 30.5 g/dL (32.0-37.0); MCV 85.9 fL (80.0-97.0); Mean Platelet Volume 10.6 fL (9.5-12.2); Monocytes # (A) 0.63 10*3/uL (0.20-1.00); Monocytes % (A) 9.1 %; Neutrophils # (A) 5.09 10*3/uL (1.80-7.70); Neutrophils % (A) 73.1 %; Platelet Count 318 10*3/uL (140-440); RDW 18.2 % (11.5-14.5); WBC 6.95 10*3/uL (4.50-10.00)
[2024-11-30 07:26] LABS: African American GFR (CKD) 40 (>60 ml/min/1.73 sqM); Alkaline Phosphatase 111 U/L (38-126); Anion Gap 7 mmol/L; Blood Urea Nitrogen 41 mg/dL (7-17); Calcium 8.4 mg/dL (8.4-10.2); Carbon Dioxide 26 mmol/L (22-30); Chloride 105 mmol/L (98-107); Glucose 108 mg/dL (74-99); Non-African American GFR(CKD) 34 (>60 ml/min/1.73 sqM); Potassium 4.2 mmol/L (3.5-5.1); Sodium 138 mmol/L (137-145); Total Bilirubin 0.8 mg/dL (0.2-1.3); Total Protein 6.5 g/dL (6.3-8.2)
[2024-11-30 07:43] LABS: ALT 841 U/L (4-34)
[2024-11-30 08:08] LABS: AST 1547 U/L (14-36)
[2024-11-30] MEDS: LOSARTAN 25 MG TAB PO SCH (08:29)
[2024-11-30 11:25] LABS: Glucose,Whole Blood 149 mg/dL (70-110)
[2024-11-30 11:53] LABS: Hepatitis A Antibody IgM Nonreactive (Nonreactive); Hepatitis B Core IgM Nonreactive (Nonreactive); Hepatitis B Surface Antigen Nonreactive (Nonreactive); Hepatitis C IgG Antibody Nonreactive (Nonreactive)
--- NOTE | 2024-11-30 12:34 | P.PN ---
Subjective Progress Note Date: 11/30/24 HISTORY OF PRESENT ILLNESS: patient is a 69-year-old lady with past medical history significant for hyper tension, diabetes mellitus, hypothyroidism, DVT who presented to the ER with concerns of nausea and vomiting for 2 days. Patient is currently resident of an extended care facility at [facility]. Apparently patient was all right on Friday night when she started having nausea followed by dry heaves which were later followed by vomiting. Nursing staff noted that the patient vomitus was dark in color and they described as coffee-ground. There was no complaint of abdominal pain. There was no complaint of any blood in the stools. There was no complaint of altered bowel movements. Denies any chest pain. There is no complaint of shortness of breath. There is no complaint of swelling of lower extremities. Because of this nausea and vomiting, patient came to the ER Initial lab work done in the ER showed WBC 12.53, hemoglobin 8.9, platelet count 272, sodium 139, potassium 6.7, BUN 26, creatinine 1.11 glucose 324, lactate 2.4 phosphorus 6.8 AST 58 troponin 4.970 proBNP 24,400 EKG done in the ER showed heart rate of 100, no ST segment elevation or depression seen, no T-wave inversions seen. CT abdomen pelvis done showed large hiatal hernia with a large portion of the stomach in the thorax. No evidence for bowel obstruction, no evidence for acute abdominal process. Severe atherosclerosis of the arterial vasculature. Patient admitted to internal medicine service 11/28. Patient seen and examined. Cardiac cath done -10% left main, 40- 50% mid LAD and 100% proximal RCA stenosis with left to right collaterals, Elevated left sided filling pressures, Square root sign noted on LV pressure tracing which can be seen with constrictive pericarditis or restrictive cardiomyopathy. States breathing is improved. Left groin site looks good 11/29: Patient is laying down in bed in no apparent distress, her oxygen was off, I placed her on 2 L nasal cannula her current oxygen saturation 97% on 2 L nasal cannula, her blood pressure appears to be marginal at this time, will decrease her losartan to 50 mg once every day will put parameter today to hold for systolic blood pressure less than 100, continue metoprolol, hold torsemide as well, follow-up the patient very closely, patient did have a left heart catheterization yesterday that showed evidence of severe cardiomyopathy we will continue current treatment plan, continue to follow-up with cardiology, physical therapy evaluation, social scientist consultation for discharge planning 11/30: Patient underwent ultrasound of the liver yesterday because of significant elevation of AST and ALT without elevation of bilirubin and alkaline phosphatase, that showed hepatic steatosis as well as 1.6 cm gallbladder stone, no evidence of any hydrops gallbladder or any cholecystitis at this point in time, no intra or extrahepatic biliary dilatation at this time, discontinued her atorvastatin, awaiting the labs from today, follow-up with the patient very closely patient continues to be generally weak, evaluation by physical therapy and Occupational Therapy, patient will require subacute rehabilitation. REVIEW OF SYSTEMS: Constitutional: No documented fever, no chills, no night sweats. No weight change. No weakness, fatigue or lethargy. No daytime sleepiness. EENT: No headache. No blurred vision or double vision, no loss of vision. No loss of Hearing, no ringing in the ears, no dizziness. No nasal drainage or congestion. No epistaxis. No sore throat. Lungs: No shortness of breath, no cough, no sputum production. No wheezing. Reports dyspnea with activity. Cardiovascular: No chest pain, no lower extremity edema. No palpitations. No paroxysmal nocturnal dyspnea. No orthopnea. No lightheadedness or dizziness. No syncopal episodes. Abdominal: Reports no abdominal pain. No nausea, vomiting. No diarrhea. No constipation. No bloody or tarry stools reports loss of appetite. Genitourinary: No dysuria, increased frequency, urgency. No urinary retention. Musculoskeletal: No myalgias. No muscle weakness, positive gait dysfunction, no frequent falls. Positive back pain. No neck pain. Integumentary: No wounds, no lesions. No rash or pruritus. No unusual bruising. No change in hair or nails. Neurologic: No aphasia. No facial droop. No change in mentation. No head injury. No headache. No paralysis. No paresthesia. Psychiatric: Positive for depression. No anxiety. No mood swings. Endocrine: No abnormal blood sugars. No weight change. PHYSICAL EXAMINATION: General: 69-year-old female laying down in bed in no apparent distress HEENT: Head is atraumatic, normocephalic, pupils were equal round reactive to light and recommendation, extraocular muscle movement were intact, sclera nonicteric, conjunctivae were pale, mucous membranes of the mouth are somewhat dry. Neck: Supple, no JVP, normal carotid upstroke bilaterally, no lymphadenopathy. Chest: Decreased breath sounds at the bases, few rhonchi, no expiratory wheezes, no chest wall tenderness, no intercostal retractions. Heart: First heart sound is normal, second heart sounds normal there is systolic ejection murmur 2 over systolic in the left sternal border Abdomen: Soft, nontender, nondistended, positive bowel sounds. Extremities: There is no edema no calf tenderness DP +2 bilaterally. Neurologic examination: Patient is awake alert and oriented x3, cranial nerves II-12 appear grossly intact, muscle power were 5 out of 5 in upper extremities and 4out of 5 in bilateral lower extremities, deep tendon reflexes normal bilaterally. ASSESSMENT AND PLAN: 1. NSTEMI. Status post left heart catheterization that showed evidence of collateral from left to right it was recommended to continue aggressive risk fa ctor modification and medical therapy, continue patient on metoprolol 25 mg orally twice every day, aspirin 81 mg once every day, as well as atorvastatin 80 mg once every day. 2.Hyperkalemia. Resolved. Repeated labs today showed normal potassium 3.Hyperphosphatemia resolved. 4.Acute kidney injury. Encourage oral intake of fluid, hold torsemide for today repeat CMP tomorrow morning. 5.Large hiatal hernia. Avoid carbonated beverages keep the head of the bed elevated. Patient is not a candidate for surgical intervention per 6.History of diabetes mellitus type II. Continue Lantus 24 units at bedtime along with a sliding scale insulin. Continue to check blood glucose before each meal and bedtime. 7.History of hypertension currently her blood pressure is marginal decrease losartan to 50 mg once every day continue metoprolol 25 mg orally twice every day, monitor the patient blood pressure very closely 8.History of hypothyroidism continue Synthroid 112 mcg orally once every day monitor the patient TSH and free T4 9.History of atrial flutter, continue patient on Eliquis 5 mg orally twice every day, metoprolol 25 mg orally twice every day 10.Coronary artery disease with previous stenting of the LAD status post left heart catheterization that showed stable findings with collateral from left to right, continue patient on any treatment as in the first Paragraph. 11.Chronic hypoxic respiratory failure on home oxygen. Continue patient on oxygen 2 L nasal cannula 12.Chronic heart failure with reduced EF, currently euvolemic continue patient on metoprolol 25 mg orally twice every day, losartan 50 mg once every day, Farxiga 10 mg once every day. Hold torsemide for today 13.Ischemic cardiomyopathy, 10 to 15% continue treatment as in the previous Paragraph. 14.Hyperlipidemia. Continue atorvastatin 80 mg once every day, monitor lipid panel, keep LDL less than 50. 15. Elevated liver function test. AST and ALT. Likely due to shock liver along with the use of medication discontinue methocarbamol, discontinue Tylenol, keep [place] as needed, discontinue atorvastatin for now, repeat CMP tomorrow morning, ultrasound of liver did show evidence of steatohepatitis as well as no biliary dilatation, we will obtain GI consultation, follow-up with the patient very closely, keep the patient off the above medications. 16. DVT prophylaxis. Currently on Eliquis 5 mg orally twice every day 17. spondylosis of the lumbar spine continue patient on morphine as well as [place] as needed discontinued methocarbamol. 18. Physical therapy/Occupational Therapy evaluation. 19. 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 20. [place] on the diop tomorrow morning. Objective - Vital Signs Vital signs: Vital Signs Temp 98.1 F 11/30/24 03:13 Pulse 74 11/30/24 05:16 Resp 16 11/30/24 03:13 BP 110/47 11/30/24 05:16 Pulse Ox 97 11/30/24 03:13 FiO2 Intake & Output 11/29/24 11/29/24 11/30/24 06:59 18:59 06:59 Intake Total 360 Output Total 50 550 Balance -50 -190 Weight 91 kg 92 kg Intake: Oral 360 Output: Urine 50 550 Other: Voiding Method External Catheter External Catheter External Catheter # Voids 1 - Labs CBC & Chem 7: 11/30/24 06:20 11/30/24 06:20 Labs: Abnormal Lab Results - Last 24 Hours (Table) 11/29/24 11/29/24 11/29/24 Range/Units 06: 06:25 10:12 RBC 3.31 L (4.10-5.20) 10*6/uL Hgb 8.7 L (12.0-15.0) g/dL Hct 29.6 L (37.2-46.3) % MCH 26.3 L (27.0-32.0) pg MCHC 29.4 L (32.0-37.0) g/dL Immature Gran # 0.06 H (0.00-0.04) 10*3/uL Neutrophils # 8.20 H (1.80-7.70) 10*3/uL Eosinophils # 0.00 L (0.04-0.35) 10*3/uL PT 16.6 H (10.0-12.5) sec INR 1.6 H (<1.2) BUN 41 H (7-17) mg/dL Creatinine 1.60 H (0.52-1.04) mg/dL Glucose 160 H (74-99) mg/dL POC Glucose (mg/dL) (70-110) mg/dL AST 2413 H (14-36) U/L ALT 878 H (4-34) U/L Albumin 3.1 L (3.5-5.0) g/dL 11/29/24 11/29/24 11/29/24 Range/Units 11:14 16:07 20:07 RBC (4.10-5.20) 10*6/uL Hgb (12.0-15.0) g/dL Hct (37.2-46.3) % MCH (27.0-32.0) pg MCHC (32.0-37.0) g/dL Immature Gran # (0.00-0.04) 10*3/uL Neutrophils # (1.80-7.70) 10*3/uL Eosinophils # (0.04-0.35) 10*3/uL PT (10.0-12.5) sec INR (<1.2) BUN (7-17) mg/dL Creatinine (0.52-1.04) mg/dL Glucose (74-99) mg/dL POC Glucose (mg/dL) 167 H 172 H 139 H (70-110) mg/dL AST (14-36) U/L ALT (4-34) U/L Albumin (3.5-5.0) g/dL 11/30/24 11/30/24 Range/Units 02:29 06:15 RBC (4.10-5.20) 10*6/uL Hgb (12.0-15.0) g/dL Hct (37.2-46.3) % MCH (27.0-32.0) pg MCHC (32.0-37.0) g/dL Immature Gran # (0.00-0.04) 10*3/uL Neutrophils # (1.80-7.70) 10*3/uL Eosinophils # (0.04-0.35) 10*3/uL PT (10.0-12.5) sec INR (<1.2) BUN (7-17) mg/dL Creatinine (0.52-1.04) mg/dL Glucose (74-99) mg/dL POC Glucose (mg/dL) 137 H 124 H (70-110) mg/dL AST (14-36) U/L ALT (4-34) U/L Albumin (3.5-5.0) g/dL
--- NOTE | 2024-11-30 14:08 | P.CONS ---
History of Present Illness - Reason for Consult Consult date: 11/30/24 Hepatitis drug-induced Requesting physician: Teresa Fields - Chief Complaint Vomiting - History of Present Illness This pleasant 69-year-old female with a significant history of coronary artery disease, myocardial infarction, deep vein thrombosis on Eliquis, diabetes mellitus, hypertension, chronic hypoxic respiratory failure on home oxygen, chronic heart failure, hyperlipidemia, hypothyroidism, chronic anemia and ischemic cardiomyopathy who had presented to the emergency department 4 days ago with complaints of nausea and vomiting. She was admitted as an NSTEMI. She underwent cardiac catheterization 3 days ago without any intervention with recommendation for aggressive risk factor modifications and no significant changes from prior recent cardiac catheterization. She was not started on any new medications. Patient and states that she has not started on any new medications recently outside of the hospital. She was on Lipitor but he has been on it for many years. She was noted to have significant elevation in her AST and ALT yesterday, 20 413 and 878 respectively with no elevation in total bilirubin or alkaline phosphatase. Patient denies any previous history of liver disease. Denies any history of heavy alcohol consumption in the past. She had mildly elevated AST on admission at 54. She denies any abdominal pain. She has not had any further nausea or vomiting. Patient appears drowsy this morning. But she is able to give history. Gastroenterology was consulted for possible medication induced hepatitis. Again patient was not started on any new medications during this hospitalization no antibiotics. It was noted that she has been hypotensive when she came in and had been running as low as 80s over 40s and 50s but specifically was noted to be 50s over 30s and 70s over 30s during her cardiac catheterization. Today's repeat labs are improving with total bilirubin 0.8 AST 1547 ALT 841 alkaline phosphatase 111. Liver ultrasound was ordered by PCP that does show some heterogeneous liver which can be seen in hepatic steatosis. Hepatitis panel nonreactive. Review of Systems REVIEW OF SYSTEMS: CARDIOPULMONARY: No chest pain. Chronic shortness of breath, oxygen dependent. Gastrointestinal: No abdominal pain. Nausea and vomiting prior to admission, now resolved. No hematemesis, coffee-ground emesis. No rectal bleeding, or melena. GENITOURINARY: No dysuria or hematuria. MUSCULOSKELETAL: Reports normal range of motion. Joint pain. SKIN: No rashes. No jaundice. ENDOCRINE: No chills, fevers. No excessive weight gain or loss. No polydipsia or polyuria. PSYCHIATRIC: Unremarkable. NEUROLOGY: No change in mental status. Denies dizziness, headache. ENT: Vision unremarkable. CONSTITUTIONAL: No recent weight loss. No fever, chills, night sweats. Past Medical History Past Medical History: Diabetes Mellitus, Hypertension, Myocardial Infarction (ND) Additional Past Medical History / Comment(s): hypothyroid, kidney stone, GLUCOMA, hx of PE Last Myocardial Infarction Date:: 2022 History of Any Multi-Drug Resistant Organisms: None Reported Past Surgical History: Back Surgery, Hysterectomy Additional Past Surgical History / Comment(s): kidney stones removed and stent CATARACTS REMOVED AND STENT PUT IN FOR GLUCOMA. 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, heart stent 2021 Past Anesthesia/Blood Transfusion Reactions: Previous Problems w/ Anesthesia, Postoperative Nausea & Vomiting (PONV) Additional Past Anesthesia/Blood Transfusion Reaction / Comm: no blood t rasnfusion reaction after 1 unit of PRBC. Patient has difficulty waking up after anesthesia, patient will be very fatigued for about 24H post anesthesia (updated 11/28/2024) Past Psychological History: No Psychological Hx Reported Smoking Status: Never smoker Past Alcohol Use History: None Reported Past Drug Use History: None Reported - Past Family History Mother Family Medical History: No Reported History Father Additional Family Medical History / Comment(s): Heart history Medications and Allergies Home Medications Medication Instructions Recorded Confirmed Type Levothyroxine Sodium [Synthroid] 112 mcg PO DAILY@0600 05/16/19 11/26/24 History Losartan Potassium 100 mg PO DAILY@0900 05/16/19 11/26/24 History Famotidine [Pepcid] 20 mg PO BID@09,209904/26/20 11/26/24 History Acetaminophen Tab [Tylenol] 1,000 mg PO Q6HR PRN 08/21/24 11/26/24 History Apixaban [Eliquis] 5 mg PO BID@0900,209908/21/24 11/26/24 History Atorvastatin [Lipitor] 40 mg PO HS@209908/21/24 11/26/24 History Empagliflozin [Jardiance] 25 mg PO DAILY@0900 08/21/24 11/26/24 History methocarbamoL [Robaxin] 500 mg PO TID@0900,1300,209908/21/24 11/26/24 History Metoprolol Tartrate [Lopressor] 25 mg PO BID@0900,2100 10/23/24 11/26/24 History Aspirin 81 mg PO DAILY@89911/26/24 11/26/24 History DULoxetine HCL [Cymbalta] 30 mg PO HS@209911/26/24 11/26/24 History HYDROcodone/APAP 10-325MG [[place] 1 tab PO Q4H PRN 11/26/24 11/26/24 History 10-325] INSULIN LISPRO (HumaLOG) [HumaLOG] See Protocol SQ ACHS 11/26/24 11/26/24 History Insulin Glargine (Lantus) [Lantus 24 unit SQ HS@209911/26/24 11/26/24 History Vial] Omeprazole 20 mg PO DAILY@59911/26/24 11/26/24 History Ondansetron [Zofran] 4 mg PO Q6H PRN 11/26/24 11/26/24 History Potassium Chloride ER [K-Dur 20] 20 meq PO DAILY@89911/26/24 11/26/24 History Tamsulosin [Flomax] 0.4 mg PO DAILY@89911/26/24 11/26/24 History Torsemide [Soaanz] 40 mg PO DAILY@59911/26/24 11/26/24 History Allergies Allergy/AdvReac Type Severity Reaction Status Date / Time No Known Allergies Allergy Verified 11/26/24 16:29 Physical Exam Vitals: Vital Signs Temp Pulse Pulse Resp BP Pulse Ox 11/30/24 05:16 74 110/47 11/30/24 03:13 98.1 F 64 16 110/50 97 11/30/24 01:28 16 11/29/24 23:01 97.7 F 69 16 116/67 97 11/29/24 21:22 16 11/29/24 20:37 98.0 F 71 16 98/51 94 L 11/29/24 15:15 63 16 98/55 98 11/29/24 14:00 64 77 16 11/29/24 11:30 98 F 64 16 102/65 99 11/29/24 08:50 98.2 F 83 18 118/52 95 Intake and Output 11/29/24 11/30/24 11/30/24 22:59 06:59 14:59 Other: Voiding Method External Catheter External Catheter # Voids 1 Weight 92 kg General appearance: The patient is alert, oriented, appears in no acute distress. Obese. HET: Head is normocephalic and atraumatic. Conjunctiva pink. Sclera anicteric. Neck: Supple without lymphadenopathy. Trachea midline. Heart: Regular. Lungs: Equal expansion, normal respiratory effort. Abdomen: Soft, nontender, nondistended. Skin: No rashes. No jaundice. Extremities: Normal skin color and turgor. No pedal edema. Neurological: No focal deficits. Alert and oriented x3. Results CBC & Chem 7: 11/30/24 06:20 11/30/24 06:20 Labs: Abnormal Lab Results - Last 24 Hours (Table) 11/29/24 11/29/24 11/29/24 Range/Units 10:12 11:14 16:07 RBC (4.10-5.20) 10*6/uL Hgb (12.0-15.0) g/dL Hct (37.2-46.3) % MCH (27.0-32.0) pg MCHC (32.0-37.0) g/dL PT 16.6 H (10.0-12.5) sec INR 1.6 H (<1.2) BUN (7-17) mg/dL Creatinine (0.52-1.04) mg/dL Glucose (74-99) mg/dL POC Glucose (mg/dL) 167 H 172 H (70-110) mg/dL AST (14-36) U/L ALT (4-34) U/L Albumin (3.5-5.0) g/dL 11/29/24 11/30/24 11/30/24 Range/Units 20:07 02:29 06:15 RBC (4.10-5.20) 10*6/uL Hgb (12.0-15.0) g/dL Hct (37.2-46.3) % MCH (27.0-32.0) pg MCHC (32.0-37.0) g/dL PT (10.0-12.5) sec INR (<1.2) BUN (7-17) mg/dL Creatinine (0.52-1.04) mg/dL Glucose (74-99) mg/dL POC Glucose (mg/dL) 139 H 137 H 124 H (70-110) mg/dL AST (14-36) U/L ALT (4-34) U/L Albumin (3.5-5.0) g/dL 11/30/24 11/30/24 Range/Units 06:20 06:20 RBC 3.40 L (4.10-5.20) 10*6/uL Hgb 8.9 L (12.0-15.0) g/dL Hct 29.2 L (37.2-46.3) % MCH 26.2 L (27.0-32.0) pg MCHC 30.5 L (32.0-37.0) g/dL PT (10.0-12.5) sec INR (<1.2) BUN 41 H (7-17) mg/dL Creatinine 1.52 H (0.52-1.04) mg/dL Glucose 108 H (74-99) mg/dL POC Glucose (mg/dL) (70-110) mg/dL AST 1547 H (14-36) U/L ALT 841 H (4-34) U/L Albumin 3.0 L (3.5-5.0) g/dL Comments: Liver ultrasound reports technically limited assessment due to bowel gas, need for intercostal scanning, body habitus, and portable technique. There may be underlying hepatic steatosis or other nonspecific hepatocellular disease. 1.6 cm gallstone. No ancillary imaging findings of acute cholecystitis. No biliary ductal dilation. CT abdomen pelvis with contrast reports large hiatal hernia with large portion of the stomach in the thorax. No evidence for bowel obstruction. No evidence for acute abdominal process. Severe arthrosclerosis of the arterial vasculature. Atelectasis adjacent to large hiatal hernia with the majority of the stomach in the thorax. Hepatic steatosis. Severe degenerative changes of the spine with postsurgical change. Assessment and Plan (1) Ischemic hepatitis Narrative/Plan: 69-year-old female with multiple comorbidities presenting with nausea vomiting and admitted as an NSTEMI who was hypotensive prior to procedure however noted to be severely hypotensive during her cardiac catheterization done 4 days ago with blood pressures in the 50s over 30s and 70s over 30s with noted significant elevation in AST and ALT. Likely dealing with acute ischemic hepatitis seco ndary to hypoperfusion from hypotension. Liver enzymes already improving as blood pressures have improved and have remained stable. No further nausea or vomiting. No prior history of liver disease but noted also on CT abdomen pelvis as well as liver ultrasound that she may have some underlying hepatic steatosis likely secondary to obesity and diabetes. There is no indication for any further workup. Will continue to trend liver enzymes over next couple days. Patient can follow-up after discharge to continue to trend LFTs. Maintain optimal blood pressures. Current Visit: Yes Status: Acute Code(s): K72.00 - ACUTE AND SUBACUTE HEPATIC FAILURE WITHOUT COMA SNOMED Code(s): 616183821 (2) NSTEMI (non-ST elevated myocardial infarction) Current Visit: Yes Status: Acute Code(s): I21.4 - NON-ST ELEVATION (NSTEMI) MYOCARDIAL INFARCTION SNOMED Code(s): 05237240 (3) Nausea and vomiting Current Visit: Yes Status: Acute Code(s): R11.2 - NAUSEA WITH VOMITING, UNSPECIFIED SNOMED Code(s): 87401042 (4) Hepatic steatosis Current Visit: Yes Status: Acute Code(s): K76.0 - FATTY (CHANGE OF) LIVER, NOT ELSEWHERE CLASSIFIED SNOMED Code(s): 644233609 (5) Hypotension Narrative/Plan: Improved Current Visit: Yes Status: Acute Code(s): I95.9 - HYPOTENSION, UNSPECIFIED SNOMED Code(s): 26291017 Plan: 1. Continue symptomatic and supportive care 2. Maintain optimal blood pressures 3. Avoid hepatotoxic medications 4. Repeat daily CMP to trend AST and ALT 5. No further workup from gastroenterology 6. Rest of medical management per primary medical team Thank you for this consultation, we will continue to follow. Dr. Chely Gomez I agree with the dictator's note, documented as a scribe by Huma Mcintyre.
[2024-11-30 16:38] LABS: Glucose,Whole Blood 122 mg/dL (70-110)
[2024-11-30 20:00] LABS: Glucose,Whole Blood 195 mg/dL (70-110)
[2024-12-01 05:59] LABS: Glucose,Whole Blood 114 mg/dL (70-110)
[2024-12-01 08:06] LABS: Basophils # (A) 0.03 10*3/uL (0.00-0.10); Basophils % (A) 0.4 %; Eosinophils # (A) 0.13 10*3/uL (0.04-0.35); Eosinophils % (A) 1.9 %; HCT 32.2 % (37.2-46.3); HGB 9.7 g/dL (12.0-15.0); Lymphocytes # (A) 1.24 10*3/uL (0.90-5.00); Lymphocytes % (A) 18.1 %; MCH 25.8 pg (27.0-32.0); MCHC 30.1 g/dL (32.0-37.0); MCV 85.6 fL (80.0-97.0); Mean Platelet Volume 10.8 fL (9.5-12.2); Monocytes # (A) 0.91 10*3/uL (0.20-1.00); Monocytes % (A) 13.3 %; Neutrophils # (A) 4.51 10*3/uL (1.80-7.70); Platelet Count 337 10*3/uL (140-440); RBC 3.76 10*6/uL (4.10-5.20); RDW 18.1 % (11.5-14.5); WBC 6.84 10*3/uL (4.50-10.00)
[2024-12-01 08:08] LABS: ALT 635 U/L (4-34); African American GFR (CKD) 63 (>60 ml/min/1.73 sqM); Albumin 2.9 g/dL (3.5-5.0); Alkaline Phosphatase 110 U/L (38-126); Anion Gap 6 mmol/L; Blood Urea Nitrogen 39 mg/dL (7-17); Calcium 8.4 mg/dL (8.4-10.2); Carbon Dioxide 35 mmol/L (22-30); Chloride 99 mmol/L (98-107); Glucose 91 mg/dL (74-99); Non-African American GFR(CKD) 54 (>60 ml/min/1.73 sqM); Potassium 3.8 mmol/L (3.5-5.1); Sodium 140 mmol/L (137-145); Total Bilirubin 0.8 mg/dL (0.2-1.3); Total Protein 6.4 g/dL (6.3-8.2)
[2024-12-01 10:01] VITALS: TEMP 97.9
[2024-12-01 10:01] LABS: AST 813 U/L (14-36)
--- NOTE | 2024-12-01 10:09 | P.DS ---
Providers Date of admission: 11/26/24 19:43 Expected date of discharge: 12/01/24 Attending physician: Teresa Fields Consults: 11/26/24 19:42 Consult Physician Urgent Consulting Provider: Thiago Go Consult Reason/Comments: nstemi Do you want consulting provider notified?: Yes 11/30/24 06:50 Consult Physician Routine Consulting Provider: Mily Gomez Consult Reason/Comments: Hepatitis drug induced Do you want consulting provider notified?: Yes Primary care physician: Teresa Fields Hospital Course: HISTORY OF PRESENT ILLNESS: patient is a 69-year-old lady with past medical history significant for hypertension, diabetes mellitus, hypothyroidism, DVT who presented to the ER with concerns of nausea and vomiting for 2 days. Patient is currently resident of an extended care facility at [facility]. Apparently patient was all right on Friday night when she started having nausea followed by dry heaves which were later followed by vomiting. Nursing staff noted that the patient vomitus was dark in color and they described as coffee-ground. There was no complaint of abdominal pain. There was no complaint of any blood in the stools. There was no complaint of altered bowel movements. Denies any chest pain. There is no complaint of shortness of breath. There is no complaint of swelling of lower extremities. Because of this nausea and vomiting, patient came to the ER Initial lab work done in the ER showed WBC 12.53, hemoglobin 8.9, platelet count 272, sodium 139, potassium 6.7, BUN 26, creatinine 1.11 glucose 324, lactate 2.4 phosphorus 6.8 AST 58 troponin 4.970 proBNP 24,400 EKG done in the ER showed heart rate of 100, no ST segment elevation or depression seen, no T-wave inversions seen. CT abdomen pelvis done showed large hiatal hernia with a large portion of the stomach in the thorax. No evidence for bowel obstruction, no evidence for acute abdominal process. Severe atherosclerosis of the arterial vasculature. Patient admitted to internal medicine service 11/28. Patient seen and examined. Cardiac cath done [id number]% left main, 40- 50% mid LAD and 100% proximal RCA stenosis with left to right collaterals, Elevated left sided filling pressures, Square root sign noted on LV pressure tracing which can be seen with constrictive pericarditis or restrictive cardiomyopathy. States breathing is improved. Left groin site looks good 11/29: Patient is laying down in bed in no apparent distress, her oxygen was off, I placed her on 2 L nasal cannula her current oxygen saturation 97% on 2 L nasal cannula, her blood pressure appears to be marginal at this time, will decrease her losartan to 50 mg once every day will put parameter today to hold for systolic blood pressure less than 100, continue metoprolol, hold torsemide as well, follow-up the patient very closely, patient did have a left heart catheterization yesterday that showed evidence of severe cardiomyopathy we will continue current treatment plan, continue to follow-up with cardiology, physical therapy evaluation, licensed master social worker consultation for discharge planning 11/30: Patient underwent ultrasound of the liver yesterday because of significant elevation of AST and ALT without elevation of bilirubin and alkaline phosphatase, that showed hepatic steatosis as well as 1.6 cm gallbladder stone, no evidence of any hydrops gallbladder or any cholecystitis at this point in ti me, no intra or extrahepatic biliary dilatation at this time, discontinued her atorvastatin, awaiting the labs from today, follow-up with the patient very closely patient continues to be generally weak, evaluation by physical therapy and Occupational Therapy, patient will require subacute rehabilitation. 12/01: Patient continues to have significant weakness and occasionally is confused. Blood pressure stable at 108/67, heart rate in the 60s, pulse ox 100% on 2 L nasal cannula. Repeat blood work reveals hemoglobin 9.7, BUN 39 creatinine 1.04. Total bilirubin is 0.8, AST 813, ALT 635. Patient has been seen by GI with recommendations to continue symptomatic and supportive care, maintain optimal blood pressures and avoid nephrotoxic agents. Therapies have recommended subacute rehab. We have obtained insurance authorization for subacute rehab at [facility]. Patient will be discharged today in stable condition. DISCHARGE DIAGNOSES: 1. NSTEMI. 2.Hyperkalemia. Resolved. 3.Hyperphosphatemia resolved. 4.Acute kidney injury. Resolved. 5.Large hiatal hernia. 6.History of diabetes mellitus type II. 7.History of hypertension 8.History of hypothyroidism 9.History of atrial flutter 10.Coronary artery disease with previous stenting of the LAD 11.Chronic hypoxic respiratory failure on home oxygen. 12.Chronic heart failure with reduced EF, currently euvolemic 13.Ischemic cardiomyopathy, 10 to 15% 14.Hyperlipidemia. 15. Elevated liver function test. AST and ALT. Likely due to shock liver along with the use of medication discontinue methocarbamol, discontinue Tylenol, keep [place] as needed, discontinue atorvastatin for now 16. Spondylosis of the lumbar spine continue patient on morphine as well as [place] as needed discontinued methocarbamol. Greater than 35 minutes was utilized and coordinating patient's discharge. Impression and plan of care have been directed as dictated by the signing physician. Lili Lancaster nurse practitioner acting as scribe for signing fransico joseph. Patient Condition at Discharge: Stable Plan - Discharge Summary Discharge Rx Participant: No New Discharge Prescriptions: New Losartan [Cozaar] 25 mg PO DAILY tab Continue Levothyroxine Sodium [Synthroid] 112 mcg PO DAILY@0600 Famotidine [Pepcid] 20 mg PO BID@0900,2100 Tamsulosin [Flomax] 0.4 mg PO DAILY@0900 DULoxetine HCL [Cymbalta] 30 mg PO HS@2100 Aspirin 81 mg PO DAILY@0900 Apixaban [Eliquis] 5 mg PO BID@0900,2100 Empagliflozin [Jardiance] 25 mg PO DAILY@0900 Metoprolol Tartrate [Lopressor] 25 mg PO BID@0900,2100 Ondansetron [Zofran] 4 mg PO Q6H PRN PRN Reason: Nausea INSULIN LISPRO (HumaLOG) [HumaLOG] See Protocol SQ ACHS Torsemide [Soaanz] 40 mg PO DAILY@0600 Potassium Chloride ER [K-Dur 20] 20 meq PO DAILY@0900 Omeprazole 20 mg PO DAILY@0600 Insulin Glargine (Lantus) [Lantus Vial] 24 unit SQ HS@2100 HYDROcodone/APAP 10-325MG [[place] 10-325] 1 tab PO Q4H PRN #18 tab PRN Reason: Pain Discontinued Losartan Potassium 100 mg PO DAILY@0900 methocarbamoL [Robaxin] 500 mg PO TID@0900,1300,2100 Acetaminophen Tab [Tylenol] 1,000 mg PO Q6HR PRN PRN Reason: Pain Atorvastatin [Lipitor] 40 mg PO HS@2100 Discharge Medication List Levothyroxine Sodium [Synthroid] 112 mcg PO DAILY@0600 05/16/19 [History] Famotidine [Pepcid] 20 mg PO BID@0900,2100 04/26/20 [History] Apixaban [Eliquis] 5 mg PO BID@0900,209908/21/24 [History] Empagliflozin [Jardiance] 25 mg PO DAILY@89908/21/24 [History] Metoprolol Tartrate [Lopressor] 25 mg PO BID@0900,209910/23/24 [History] Aspirin 81 mg PO DAILY@89911/26/24 [History] DULoxetine HCL [Cymbalta] 30 mg PO HS@209911/26/24 [History] INSULIN LISPRO (HumaLOG) [HumaLOG] See Protocol SQ ACHS 11/26/24 [History] Insulin Glargine (Lantus) [Lantus Vial] 24 unit SQ HS@209911/26/24 [History] Omeprazole 20 mg PO DAILY@59911/26/24 [History] Ondansetron [Zofran] 4 mg PO Q6H PRN 11/26/24 [History] Potassium Chloride ER [K-Dur 20] 20 meq PO DAILY@89911/26/24 [History] Tamsulosin [Flomax] 0.4 mg PO DAILY@89911/26/24 [History] Torsemide [Soaanz] 40 mg PO DAILY@59911/26/24 [History] HYDROcodone/APAP 10-325MG [[place] 10-325] 1 tab PO Q4H PRN #18 tab 12/01/24 [Rx] Losartan [Cozaar] 25 mg PO DAILY tab 12/01/24 [Rx] Follow up Appointment(s)/Referral(s): Juan Pablo Elkins DO [STAFF PHYSICIAN] - 2 Weeks Teresa Fields MD [Primary Care Provider] - 1 Week (AT [facility]) Activity/Diet/Wound Care/Special Instructions: CBC and CMP in 3 days Discharge Disposition: TRANSFER TO SNF/ECF
--- NOTE | 2024-12-01 11:26 | P.PN ---
Subjective Progress Note Date: 12/01/24 Principal diagnosis: Elevated LFTs This pleasant 69-year-old female with a significant history of coronary artery disease, myocardial infarction, deep vein thrombosis on Eliquis, diabetes mellitus, hypertension, chronic hypoxic respiratory failure on home oxygen, chronic heart failure, hyperlipidemia, hypothyroidism, chronic anemia and ischemic cardiomyopathy who had presented to the emergency department 4 days ago with complaints of nausea and vomiting. She was admitted as an NSTEMI. She underwent cardiac catheterization 3 days ago without any intervention with recommendation for aggressive risk factor modifications and no significant changes from prior recent cardiac catheterization. She was not started on any new medications. Patient and states that she has not started on any new medications recently outside of the hospital. She was on Lipitor but he has been on it for many years. She was noted to have significant elevation in her AST and ALT yesterday, 20 413 and 878 respectively with no elevation in total bilirubin or alkaline phosphatase. Patient denies any previous history of liver disease. Denies any history of heavy alcohol consumption in the past. She had mildly elevated AST on admission at 54. She denies any abdominal pain. She has not had any further nausea or vomiting. Patient appears drowsy this morning. But she is able to give history. Gastroenterology was consulted for possible medication induced hepatitis. Again patient was not started on any new medications during this hospitalization no antibiotics. It was noted that she has been hypotensive when she came in and had been running as low as 80s over 40s and 50s but specifically was noted to be 50s over 30s and 70s over 30s during her cardiac catheterization. Today's repeat labs are improving with total bilirubin 0.8 AST 1547 ALT 841 alkaline phosphatase 111. Liver ultrasound was ordered by PCP that does show some heterogeneous liver which can be seen in hepatic steatosis. Hepatitis panel nonreactive. 12/01/2024 Patient seen and examined today as a follow-up. She is sitting up in bed. She is more awake and alert today. She denies any abdominal pain, nausea or vomiting. LFTs continue to trend down. Today AST 813 down from 1547 and alkaline phosphatase 635 down from 841 total bilirubin alkaline phosphatase remain normal. Objective - Vital Signs Vital signs: Vital Signs Temp 97.7 F 12/01/24 03:32 Pulse 61 12/01/24 03:32 Resp 18 12/01/24 03:32 BP 108/69 12/01/24 05:24 Pulse Ox 100 12/01/24 03:32 FiO2 Intake & Output 11/30/24 12/01/24 12/01/24 18:59 06:59 18:59 Output Total 1800 1900 600 Balance -1800 -1900 -600 Weight 96 kg Output: Urine 1800 1900 600 Other: Voiding Method External Catheter External Catheter # Bowel Movements 1 - Exam General appearance: The patient is alert, oriented, appears in no acute distress. HET: Head is normocephalic and atraumatic. Conjunctiva pink. Sclera anicteric. Neck: Supple without lymphadenopathy. Abdomen: Soft, nontender, obese, nondistended. Extremities: Normal skin color and turgor. No pedal edema Skin: No rashes, no jaundice Neurological: No focal deficits. Alert and oriented. - Labs CBC & Chem 7: 12/01/24 07:07 12/01/24 07:07 Labs: Abnormal Lab Results - Last 24 Hours (Table) 11/30/24 11/30/24 11/30/24 Range/Units 11:23 16:34 19:57 RBC (4.10-5.20) 10*6/uL Hgb (12.0-15.0) g/dL Hct (37.2-46.3) % MCH (27.0-32.0) pg MCHC (32.0-37.0) g/dL POC Glucose (mg/dL) 149 H 122 H 195 H (70-110) mg/dL 12/01/24 12/01/24 Range/Units 05:57 07:07 RBC 3.76 L (4.10-5.20) 10*6/uL Hgb 9.7 L (12.0-15.0) g/dL Hct 32.2 L (37.2-46.3) % MCH 25.8 L (27.0-32.0) pg MCHC 30.1 L (32.0-37.0) g/dL POC Glucose (mg/dL) 114 H (70-110) mg/dL Assessment and Plan (1) Ischemic hepatitis Narrative/Plan: 69-year-old female with multiple comorbidities presenting with nausea vomiting and admitted as an NSTEMI who was hypotensive prior to procedure however noted to be severely hypotensive during her cardiac catheterization done 4 days ago with blood pressures in the 50s over 30s and 70s over 30s with noted significant elevation in AST and ALT. Likely dealing with acute ischemic hepatitis secondary to hypoperfusion from hypotension. Liver enzymes already improving as blood pressures have improved and have remained stable. No further nausea or vomiting. No prior history of liver disease but noted also on CT abdomen pelvis as well as liver ultrasound that she may have some underlying hepatic steatosis likely secondary to obesity and diabetes. There is no indication for any further workup. Liver enzymes continue to trend down as blood pressures have been optimized. Plan is for discharge today with follow-up with her PCP Dr. Berman with repeat CMP in 3 days. Current Visit: Yes Status: Acute Code(s): K72.00 - ACUTE AND SUBACUTE HEPATIC FAILURE WITHOUT COMA SNOMED Code(s): 840962578 (2) NSTEMI (non-ST elevated myocardial infarction) Current Visit: Yes Status: Acute Code(s): I21.4 - NON-ST ELEVATION (NSTEMI) MYOCARDIAL INFARCTION SNOMED Code(s): 23062299 (3) Nausea and vomiting Current Visit: Yes Status: Acute Code(s): R11.2 - NAUSEA WITH VOMITING, UNSPECIFIED SNOMED Code(s): 91429443 (4) Hepatic steatosis Current Visit: Yes Status: Acute Code(s): K76.0 - FATTY (CHANGE OF) LIVER, NOT ELSEWHERE CLASSIFIED SNOMED Code(s): 611570277 (5) Hypotension Narrative/Plan: Improved Current Visit: Yes Status: Acute Code(s): I95.9 - HYPOTENSION, UNSPECIFIED SNOMED Code(s): 78706626 Plan: 1. Continue symptomatic and supportive care 2. Maintain optimal blood pressures 3. Avoid hepatotoxic medications 4. No further workup from gastroenterology 5. Recommend outpatient CMP in 3 to 7 days, can be done with PCP 6. Rest of medical management per primary medical team Thank you for this consultation, patient is cleared from gastroenterology for discharge. Follow-up as needed at discretion of PCP. Dr. Chely Gomez I agree with the dictator's note, documented as a scribe by Huma Mcintyre.
[2024-12-01 11:35] LABS: Glucose,Whole Blood 83 mg/dL (70-110)
[2024-12-01 12:15] LABS: Glucose,Whole Blood 158 mg/dL (70-110)
[2024-12-01 13:15] VITALS: BP 99/43; PULSE 60; RESP 16
== END 2024-12-01 13:16 | DRG 280 ==
LOC: EC 15:06 → 3SCARD 19:43
PROVIDERS: ADMIT Internal Medicine; ATTEND Internal Medicine
PROC: B2161ZZ Fluoroscopy of Right and Left Heart using Low Osmolar Contrast (ICD-10-PCS; 2024-11-27)
PROC: B2111ZZ Fluoroscopy of Multiple Coronary Arteries using Low Osmolar Contrast (ICD-10-PCS; 2024-11-27)
PROC: 4A023N7 Measurement of Cardiac Sampling and Pressure, Left Heart, Percutaneous Approach (ICD-10-PCS; principal; 2024-11-27 10:37)
DX: I21.4 Non-ST elevation (NSTEMI) myocardial infarction (principal); K72.00 Acute and subacute hepatic failure without coma; I48.92 Unspecified atrial flutter; E83.39 Other disorders of phosphorus metabolism; E11.9 Type 2 diabetes mellitus without complications; D64.9 Anemia, unspecified; I11.0 Hypertensive heart disease with heart failure; E03.9 Hypothyroidism, unspecified; K76.0 Fatty (change of) liver, not elsewhere classified; I50.22 Chronic systolic (congestive) heart failure; J96.11 Chronic respiratory failure with hypoxia; N17.9 Acute kidney failure, unspecified; Z79.4 Long term (current) use of insulin; I25.10 Atherosclerotic heart disease of native coronary artery without angina pectoris; I25.5 Ischemic cardiomyopathy; E78.5 Hyperlipidemia, unspecified; E87.5 Hyperkalemia; K44.9 Diaphragmatic hernia without obstruction or gangrene; I95.9 Hypotension, unspecified; Z79.82 Long term (current) use of aspirin; Z86.718 Personal history of other venous thrombosis and embolism; Z95.5 Presence of coronary angioplasty implant and graft; G89.29 Other chronic pain; Z99.81 Dependence on supplemental oxygen; I25.2 Old myocardial infarction; M47.816 Spondylosis without myelopathy or radiculopathy, lumbar region; Z79.01 Long term (current) use of anticoagulants; Z79.84 Long term (current) use of oral hypoglycemic drugs; Z79.890 Hormone replacement therapy; Z79.899 Other long term (current) drug therapy; Z86.711 Personal history of pulmonary embolism; Z87.442 Personal history of urinary calculi; Z90.710 Acquired absence of both cervix and uterus
CPT/HCPCS: 36415; 74177; 76705; 76770; 80053; 80061; 80074; 81001; 82140; 83605; 83690; 83735; 83880; 84100; 84484; 85025; 85049; 85610; 85730; 93005; 93308; 93458; 96361; 96365; 96366; 96372; 96375; 99291

== ENCOUNTER → 2024-12-16 | Outpatient (CLI) | payer MEDICARE ==
[2024-12-16 09:46] VITALS: BP 125/74; PULSE 65; RESP 16; TEMP 96.9
--- NOTE | 2024-12-16 16:56 | P.PAINPG ---
Objective - Vital Signs Vital signs: Intake & Output 12/15/24 12/16/24 12/16/24 18:59 06:59 18:59 Weight 68.039 kg PQRS Measure Charge Sheet Comment: HISTORY OF PRESENT ILLNESS: A 69 yr old wheelchair bound female w at side presents today w severe acute LBP secondary to failed L3-S1 Laminectomy, BL Sacroiliitis for evaluation s/p Caudal JAMIN. Pt states she experienced 65 % pain relief x 5 wks s/p procedure. Pt states pain level is provoked at 9 /10 in intensity, constant, localized in the lumbar spine, predominantly axial, sharp in character w occasional shooting pain towards the L & R of midline. Pain is provoked by twisting, walking/ standing for periods > 15 min. Pain is alleviated by PT semi weekly since Jul 2024 which pt is currently in, heat, ice, medications, manual massage, repositioning and rest . Oswestry axial pain score of 34. Interventional procedures include L3-S1 Laminectomy, BL SI (10/28/24), Caudal JAMIN (11/19) Medications include [place] 5/325mg from Dr Fields, ASA REVIEW OF ORGAN SYSTEMS: CONSTITUTIONAL: No fevers or chills. No recent weight loss. NEUROLOGICAL: + numbness and tingling along the distal extremities. No seizure disorders or headaches. MUSCULOSKELETAL: + pain PSYCHIATRIC: Denies current depression or suicidal thoughts. Physical Examinations : Constitutional : Cooperative , not in acute distress . Neurologic : Cranial nerve II to XII intact. No focal neurological deficits. Psychiatric : alert & oriented x 3. Matching mood & appropriate affect. Judgment & insight intact. Musculoskeletal : Cervical Spine Motor strength in the deltoid and biceps: Normal right side. Normal Left side Motor strength biceps and the wrist extensors: Normal right side . Normal left side Motor strength in the triceps muscle: Normal right side. Normal left side Deep tendon reflexes: Normal at the biceps. Normal at Brachioradialis. Normal at triceps Vertebral body tenderness to deep palpation over Cervical facet loading test: positive bilaterally Spurling test: positive bilaterally Neck distraction test: positive bilaterally James sign: positive bilaterally Lumbar spine +Incisional scar intact Motor strength lower extremities ,thigh and legs 5/5 Right side , 5/5 Left side Deep tendon reflexes : Normal Knee Jerk. Normal Ankle Jerk Vertebral body tenderness over L5 Marc Test positive Lumbar facet Loading Test: positive Right / positive Left L1-L2/ L2- L3 Range of motion of the lumbar spine Flexion 30 degrees, extension 10 degrees Straight Leg Raise test: Left/ Right positive at 30 degrees Aly test: positive right / positive left. Severe tenderness over the Sacroiliac joint on the Right / Left sides Gaenslen test: positive bilaterally Seated flexion test: positive bilaterally. Sacral spine : Severe tenderness over the Sacroiliac joint: right side / left side Range of motion: Flexion of the lumbar spine <60 degrees Range of motion: Extension of the lumbar spine <20 degrees Gaenslen's Test positive Aly test: positive right side / left side Thigh Thrust Test Sacral Thrust Test Imaging: CT non contrast Lumbar spine from Oct 2024 reviewed Assessment/ Plan : L3-L4/ L5-S1 radiculopathy, Failed L3-S1 laminectomy syndrome, Scoliosis, BL Sacroiliitis, Hx of wound dehiscence Recommendation of Caudal JAMIN #2. Risks, benefits of procedure discussed and patient verbalized understanding. Admits to anti- coagulant use or medical history of diabetes. Protocol for discontinuation/ continuation of medications sarah procedure discussed. All questions answered. I have spent greater than 30 minutes on patient care today. Dr Muir was available by phone for the evaluation of this patient. The time was used to review the medical records including relevant urine studies and Prescription history (MAPs), review of the available imaging, evaluation and examination of the patient, coordination of care with the medical staff and if applicable referring physicians, as well as creation of the medical record - Pain Location Bilateral Lower Back Non-Pharmacological Interventions: Elevation, Ice, Inactivity, Physical Therapy, Position/Reposition, Sitting Pharmacological Interventions: Epidural, PRN Medication PQRS Narrative: Smoking Status Never smoker Home Medications: Ambulatory Orders Levothyroxine Sodium [Synthroid] 112 mcg PO DAILY@0605/16/19 Famotidine [Pepcid] 20 mg PO BID@899,209904/26/20 Apixaban [Eliquis] 5 mg PO BID@899,209908/21/24 Empagliflozin [Jardiance] 25 mg PO DAILY@89908/21/24 Metoprolol Tartrate [Lopressor] 25 mg PO BID@899,209910/23/24 Aspirin 81 mg PO DAILY@89911/26/24 DULoxetine HCL [Cymbalta] 30 mg PO HS@209911/26/24 INSULIN LISPRO (HumaLOG) [HumaLOG] See Protocol SQ ACHS 11/26/24 Insulin Glargine (Lantus) [Lantus Vial] 24 unit SQ HS@209911/26/24 Omeprazole 20 mg PO DAILY@59911/26/24 Ondansetron [Zofran] 4 mg PO Q6H PRN 11/26/24 Potassium Chloride ER [K-Dur 20] 20 meq PO DAILY@89911/26/24 Tamsulosin [Flomax] 0.4 mg PO DAILY@89911/26/24 Torsemide [Soaanz] 40 mg PO DAILY@59911/26/24 HYDROcodone/APAP 10-325MG [[place] 10-325] 1 tab PO Q4H PRN #18 tab 12/01/24 Losartan [Cozaar] 25 mg PO DAILY tab 12/01/24 Controlled Substance Measures - Controlled Substance Measures Is patient prescribed a controlled substance at discharge?: No
== END ==
LOC: PNWHC3 09:17
PROVIDERS: ATTEND Specialist
DX: M43.27 Fusion of spine, lumbosacral region (principal); M46.1 Sacroiliitis, not elsewhere classified; M54.17 Radiculopathy, lumbosacral region; M41.9 Scoliosis, unspecified; Z98.890 Other specified postprocedural states
CPT/HCPCS: 99211

== ENCOUNTER 2025-01-07 10:38 | Day surgery (SDC) | payer MEDICARE ==
[~2025-01-07 10:38] MED LIST changes: +LACTATED RINGERS 1,000 ML IV SCH; -SODIUM CHLORIDE 0.9% 1,000 ML IV NR; -SODIUM CHLORIDE 0.9% 500 ML 500 ML in EMPTY BAG 1 BAG IV PRN
[2025-01-07 11:55] VITALS: TEMP 97.3
[2025-01-07 11:58] LABS: Glucose,Whole Blood 254 mg/dL (70-110)
[2025-01-07] MEDS ORDERED: methylPREDNISolone ACETATE 80 MG/ML 1 ML VIAL ONE (13:02)
[2025-01-07] MEDS ORDERED: IOPAMIDOL M300 15ML VIAL ONE (13:02)
--- NOTE | 2025-01-07 13:15 | P.PCN ---
Description of Procedure: Preprocedure diagnosis. Post laminectomy syndrome. Lumbar radiculopathy. Postprocedure diagnosis. As above. Procedure done. Injection of radio contrast material into the caudal epidural space. Caudal epidurogram, interpretation of caudal epidurogram, caudal epidural steroid injection under fluoroscopic guidance. Anesthesia. Local infiltration with local anesthetics. In OR, continuous pulse ox, EKG, blood pressure and verbal communication was maintained. Blood loss. None. Indication. Discussed with the patient procedure, alternatives, complications which may including infection bleeding and nerve damage aggravation of pain all of which could be permanent. Patient understands and questions were answered. Procedure note. Antibiotic started Pre-Op. After getting consent patient in OR in prone position. Back prepped with chlorhexidine 3 times and draped in sterile fashions. 10 mL of 1% lidocaine injected subcutaneously. Under AP and crosstable lateral view of the fluoroscope, 20-gauge Tuohy needle was introduced through the sacral hiatus into caudal epidural space. After needle position confirmation by AP and crosstable lateral view, 5 mL of Omnipaque 200 radiocontrast material injected which was noted into the caudal epidural space. No contrast was noted into the intrathecal or intravascular space. After repeat negative aspiration 10 mL of solution injected which consists of 9 mL of preservative-free normal saline mixed with 1 mL of 80 mg Depo-Medrol. Tuohy needle was taken out and bandages applied. Disposition. Patient tolerated the procedure well. No complication. Discharged home in stable condition.
[2025-01-07 13:41] VITALS: BP 140/71; PULSE 91; RESP 16
--- NOTE | 2025-01-07 14:32 | FL ---
Fluoroscopy INDICATION: Pain FINDINGS: Fluoroscopy time: 25 seconds. Total dose area product (DAP) in uGy*m?, mGy*cm? (or similar): 0.92666 Images obtained: 3. Images document needle directed towards the inferior sacral canal IMPRESSION: 1. Documentation of fluoroscopy. [facility], , 01/07/2025 2:30 PM
== END 2025-01-07 13:58 | disposition home or self-care (01) ==
LOC: ORPAIN 10:38
PROVIDERS: ATTEND Pain Medicine Interventional Pain Medicine
DX: M96.1 Postlaminectomy syndrome, not elsewhere classified (principal); M54.16 Radiculopathy, lumbar region; E11.9 Type 2 diabetes mellitus without complications; Z79.01 Long term (current) use of anticoagulants; Z79.82 Long term (current) use of aspirin; Z79.4 Long term (current) use of insulin
CPT/HCPCS: 62323; Q9967; J1010

== ENCOUNTER → 2025-01-13 | Outpatient (CLI) | payer MEDICARE ==
--- NOTE | 2025-01-13 09:48 | US ---
EXAMINATION TYPE: US arterial LE single level DATE OF EXAM: 01/13/2025 9:32 AM COMPARISONS: None. CLINICAL INDICATION: Female, 69 years old with history of E11.621 TYPE 2 DIABETES MELLITUS WITH FOOT ULCER; Left foot ulcer TECHNIQUE: Systolic pressures were taken of the upper and lower extremity arteries with ankle-brachia l indices and toe brachial indices calculated bilaterally. History of: Smoker: No Hypertension: Yes Diabetic: Yes Hyperlipidemia: No TIA/CVA: Yes Previous Vascular Surgery: Yes CAD: No RI: Yes Vascular Ulcers: Yes Claudication: No Gangrene: No FINDINGS: Doppler Waveforms: Right: Left: Pulse Volume Recording: Pressure Gradients: Brachial Artery systolic pressure: Right: 141 Left: 148 Posterior Tibial artery systolic pressure: Right: NC - Vessel was non-compressible Left: NC - Vessel was non-compressible Dorsalis Pedis artery systolic pressure: Right: NC - Vessel was non-compressible Left: NC - Vessel was non-compressible Toe artery systolic pressure: Right: 0 Left: 58 Ankle-Brachial Indices: Right: NC - Vessel was non-compressible Left: NC - Vessel was non-compressible Toe Brachial Indices: Right: 0 Left: 0.39 (Normal > 0.6; Mild 0.35 - 0.59, Moderate 0.12 - 0.34, Severe <0.12) IMPRESSION: 1. Mild narrowing left digital artery. 2. Limited examination [facility], , 01/13/2025 9:46 AM
== END | disposition home or self-care (01) ==
LOC: RADUSWWP 08:54
PROVIDERS: ATTEND Internal Medicine Infectious Disease
DX: E11.621 Type 2 diabetes mellitus with foot ulcer (principal); I10 Essential (primary) hypertension; Z86.73 Personal history of transient ischemic attack (TIA), and cerebral infarction without residual deficits
CPT/HCPCS: 93922

== ENCOUNTER 2025-01-17 08:01 | Emergency (ER) | payer MEDICARE ==
--- NOTE | 2025-01-17 08:18 | ED ---
General Adult HPI - General Source: patient, RN notes reviewed Mode of arrival: EMS <Marlena Boyle - Last Filed: 01/17/25 08:16> <Abraham Ames - Last Filed: 01/18/25 07:48> - General Stated complaint: NV, AFIB Time Seen by Provider: 01/17/25 08:07 - History of Present Illness Initial comments: Quick note: 69-year-old male presented to ER via EMS for evaluation of nausea and vomiting. Patient states since she has been having reoccurring bouts of emesis. She denies any hematic emesis or coffee-ground emesis. Patient states she is unable to keep anything down. Patient reports she has been taking Zofran as prescribed by PCP. She denies any fevers or abdominal pain. Patient denies any chest pain, shortness of breath. Typically wears 2 L of nasal cannula oxygen at baseline (Marlena Boyle) 69-year-old female presenting for evaluation of persistent nausea and vomiting over the past 5 days. Patient did have some loose stool although there has not been consistent or persistent diarrhea. She had multiple episodes of vomiting prior to arrival. No chest pain. No fever. (Abraham Ames) - Related Data Home Medications Medication Instructions Recorded Confirmed Levothyroxine Sodium [Synthroid] 112 mcg PO DAILY@0605/16/19 01/07/25 Famotidine [Pepcid] 20 mg PO BID@09,209904/26/20 01/07/25 Apixaban [Eliquis] 5 mg PO BID@899,209908/21/24 01/05/25 Empagliflozin [Jardiance] 25 mg PO DAILY@89908/21/24 01/07/25 Metoprolol Tartrate [Lopressor] 25 mg PO BID@0900,209910/23/24 01/07/25 Aspirin 81 mg PO DAILY@89911/26/24 01/05/25 DULoxetine HCL [Cymbalta] 30 mg PO HS@209911/26/24 01/07/25 INSULIN LISPRO (HumaLOG) [HumaLOG] See Protocol SQ ACHS 11/26/24 01/05/25 Insulin Glargine (Lantus) [Lantus 24 unit SQ HS@209911/26/2425 Vial] Omeprazole 20 mg PO DAILY@59911/26/24 01/07/25 Ondansetron [Zofran] 4 mg PO Q6H PRN 11/26/24 01/07/25 Potassium Chloride ER [K-Dur 20] 20 meq PO DAILY@89911/26/24 01/07/25 Tamsulosin [Flomax] 0.4 mg PO DAILY@89911/26/24 01/07/25 Torsemide [Soaanz] 40 mg PO DAILY@59911/26/24 01/07/25 Previous Rx's Medication Instructions Recorded HYDROcodone/APAP 10-325MG [[place] 1 tab PO Q4H PRN #18 tab 12/01/24 10-325] Losartan [Cozaar] 25 mg PO DAILY tab 12/01/24 Metoclopramide HCl [Reglan] 5 mg PO TID PRN #12 tablet 01/17/25 Allergies Allergy/AdvReac Type Severity Reaction Status Date / Time No Known Allergies Allergy Verified 01/17/25 18:33 Review of Systems ROS Other: All systems not noted in ROS Statement are negative. <Marlena Boyle - Last Filed: 01/17/25 08:16> ROS Other: All systems not noted in ROS Statement are negative. <Abraham Ames - Last Filed: 01/18/25 07:48> ROS Statement: Those systems with pertinent positive or pertinent negative responses have been documented in the HPI. Past Medical History Past Medical History: Atrial Flutter, Coronary Artery Disease (CAD), Diabetes Mellitus, Hypertension, Myocardial Infarction ([place]), Pulmonary Embolus (PE), Skin Disorder, Thyroid Disorder Additional Past Medical History / Comment(s): hypothyroid, kidney stone, glaucoma, hx of PE, was in [facility] recently for rehab due to back issues, recent adm. to [facility] for N/V, states had "heart attack", had cardiac cath. but no new stents, elevated liver enzymes, current wound left heel, is wrapped-will be going to wound center soon Last Myocardial Infarction Date:: 2022 History of Any Multi-Drug Resistant Organisms: None Reported Past Surgical History: Back Surgery, Heart Catheterization, Heart Catheterizati on With Stent, Hysterectomy Additional Past Surgical History / Comment(s): kidney stones removed and stent CATARACTS REMOVED AND STENT PUT IN FOR GLUCOMA. 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 Patient has difficulty waking up after anesthesia, patient will be very fatigued for about 24H post anesthesia (updated 11/28/2024) Date of Last Stent Placement:: 2021 Smoking Status: Never smoker - Past Family History Mother Family Medical History: No Reported History Father Additional Family Medical History / Comment(s): Heart history <Marlena Boyle - Last Filed: 01/17/25 08:16> General Exam <Marlena Boyle - Last Filed: 01/17/25 08:16> General appearance: alert, in no apparent distress Head exam: Present: atraumatic, normocephalic Eye exam: Present: normal appearance, PERRL ENT exam: Present: mucous membranes dry Respiratory exam: Present: decreased breath sounds. Absent: respiratory distress Cardiovascular Exam: Present: regular rate, normal rhythm GI/Abdominal exam: Present: soft, tenderness (Right upper quadrant). Absent: distended Extremities exam: Present: normal inspection, normal capillary refill Neurological exam: Present: alert, oriented X3 Psychiatric exam: Present: normal affect, normal mood <Abraham Ames - Last Filed: 01/18/25 07:48> - General Exam Comments Initial Comments: Visual Physical Exam Vital signs reviewed General: Well-appearing, nontoxic, no acute distress. Head: Normocephalic, atraumatic Eyes: PERRLA, EOMI ENT: Airway patent Chest: Nonlabored breathing Skin: No visual rash, normal skin tone Neuro: Alert and oriented 3 Musculoskeletal: No gross abnormalities (Marlena Boyle) Course Vital Signs 01/17/25 01/17/25 01/17/25 08:32 10:21 12:20 Temperature 98.1 F Pulse Rate 112 H 113 H 109 H Respiratory 19 18 18 Rate Blood Pressure 114/49 137/57 118/56 O2 Sat by Pulse 100 100 100 Oximetry Medical Decision Making <Marlena Boyle - Last Filed: 01/17/25 08:16> - Lab Data Result diagrams: 01/17/25 08:26 01/17/25 08:26 <Abraham Ames Carmen - Last Filed: 01/18/25 07:48> - Medical Decision Making I performed the quick note portion of this chart. Electronically signed by Rik Boyle PA-C (Marlena Boyle) Was pt. sent in by a medical professional or institution ([facility], [employer], urgent care, hospital, or detention...) When possible be specific @ -No Did you speak to anyone other than the patient for history (EMS, parent, family, police, friend...)? What history was obtained from this source @ -No Did you review nursing and triage notes (agree or disagree)? Why? @ -I reviewed and agree with nursing and triage notes Were old charts reviewed (outside hosp., previous admission, EMS record, old EKG, old radiological studies, urgent care reports/EKG's, detention records)? Report findings @ -No old charts were reviewed Differential Abdominal Pain Women: Appendicitis, Cholecystitis, diverticulosis, ischemic bowel, pancreatitis, hepa titis, UTI, gastroenteritis, AAA, incarcerated hernia, bowel obstruction, constipation, inflammatory bowel, hepatitis, peptic ulcer disease, splenic infarction, perforated viscus, , kidney stone, placenta abruption, this is not meant to be an all-inclusive list EKG interpreted by me (3pts min.). @ -Sinus tachycardia with ventricular rate of 111, RI interval 197, QRS duration 117, QTc [address] segment elevation. X-rays interpreted by me (1pt min.). @ -None done CT interpreted by me (1pt min.). @ -None done U/S interpreted by me (1pt. min.). @Ultrasound showing a 1.6 cm gallstone without signs of acute cholecystitis. What testing was considered but not performed or refused? (CT, X-rays, U/S, labs)? Why? @ -None What meds were considered but not given or refused? Why? @ -None Did you discuss the management of the patient with other professionals (professionals i.e. [facility], [employer], lab, RT, psych nurse, licensed clinical social worker, traffic officer, teacher, classification officer, counseling case manager)? Give summary @Dr. Fields who is familiar with the patient Was smoking cessation discussed for >3mins.? @ -No Was critical care preformed (if so, how long)? @ -No Were there social determinants of health that impacted care today? How? (Homelessness, low income, unemployed, alcoholism, drug addiction, transportation, low edu. Level, literacy, decrease access to med. care, assisted, rehab)? @ -No Was there de-escalation of care discussed even if they declined (Discuss DNR or withdrawal of care, Hospice)? DNR status @ -No What co-morbidities impacted this encounter? (DM, HTN, Smoking, COPD, CAD, Cancer, CVA, ARF, Chemo, Hep., AIDS, mental health diagnosis, sleep apnea, morbid obesity)? @ -[Diabetes atrial flutter Was patient admitted / discharged? Hospital course, mention meds given and route, prescriptions, significant lab abnormalities, going to OR and other pertinent info. @ -69-year-old female presenting with nausea vomiting, several episodes of diarrhea. Patient does appear somewhat dehydrated. She also has very minimal right upper quadrant tenderness with deep palpation. No rebound or guarding. She has a mild leukocytosis glucose is elevated. I did perform ultrasound of the gallbladder which shows a 1.6 cm gallstone. I do feel this patient would benefit from surgical evaluation. Patient has no further vomiting while in the emergency department I discussed case with her primary care provider Dr. Fields at this time felt that the patient is stable for discharge with return parameters and close outpatient follow-up. Undiagnosed new problem with uncertain prognosis? @ -No Drug Therapy requiring intensive monitoring for toxicity (Heparin, Nitro, Insulin, Cardizem)? @ -No Were any procedures done? @ -No Diagnosis/symptom? @ -Gallstone, nausea vomiting Acute, or Chronic, or Acute on Chronic? @ -Acute on chronic Uncomplicated (without systemic symptoms) or Complicated (systemic symptoms)? @ -Default Side effects of treatment? @ -No Exacerbation, Progression, or Severe Exacerbation? @ -No Poses a threat to life or bodily function? How? (Chest pain, [place], [place], pneumonia, PE, COPD, DKA, ARF, appy, cholecystitis, CVA, Diverticulitis, Homicidal, Suicidal, threat to staff... and all critical care pts) @Low risk at this time (Abraham Ames) - Lab Data Lab Results 01/17/25 01/17/25 01/17/25 Range/Units 08:26 08:26 08:32 WBC 11.18 H (4.50-10.00) 10*3/uL RBC 4.71 (4.10-5.20) 10*6/uL Hgb 11.8 L (12.0-15.0) g/dL Hct 38.9 (37.2-46.3) % MCV 82.6 (80.0-97.0) fL MCH 25.1 L (27.0-32.0) pg MCHC 30.3 L (32.0-37.0) g/dL Plt Count 312 (140-440) 10*3/uL MPV 11.0 (9.5-12.2) fL Immature Gran % (Auto) 0.4 % Neutrophils % 78.9 % Lymphocytes % 14.7 % Monocytes % 5.4 % Eosinophils % 0.2 % Basophils % 0.4 % Immature Gran # 0.04 (0.00-0.04) 10*3/uL Neutrophils # 8.84 H (1.80-7.70) 10*3/uL Lymphocytes # 1.64 (0.90-5.00) 10*3/uL Monocytes # 0.60 (0.20-1.00) 10*3/uL Eosinophils # 0.02 L (0.04-0.35) 10*3/uL Basophils # 0.04 (0.00-0.10) 10*3/uL Sodium 137 (137-145) mmol/L Potassium 4.4 (3.5-5.1) mmol/L Chloride 97 L (98-107) mmol/L Carbon Dioxide 19 L (22-30) mmol/L Anion Gap 21 mmol/L BUN 20 H (7-17) mg/dL Creatinine 0.84 (0.52-1.04) mg/dL Est GFR (CKD-EPI)AfAm 81 (>60 ml/min/1.73 sqM) Est GFR (CKD-EPI)NonAf 70 (>60 ml/min/1.73 sqM) Glucose 352 H (74-99) mg/dL Calcium 9.7 (8.4-10.2) mg/dL Total Bilirubin 0.8 (0.2-1.3) mg/dL AST 29 (14-36) U/L ALT 11 (4-34) U/L Alkaline Phosphatase 127 H (38-126) U/L Total Protein 7.7 (6.3-8.2) g/dL Albumin 4.2 (3.5-5.0) g/dL Urine Color Urine Appearance (Clear) Urine pH (5.0-8.0) Ur Specific [place] (1.001-1.035) Urine Protein (Negative) Urine Glucose (UA) (Negative) Urine Ketones (Negative) Urine Blood (Negative) Urine Nitrite (Negative) Urine Bilirubin (Negative) Urine Urobilinogen (<2.0) mg/dL Ur Leukocyte Esterase (Negative) Urine RBC (0-5) /hpf Urine WBC (0-5) /hpf Ur Squamous Epith Cells (0-4) /hpf Urine Bacteria (None) /hpf Urine Yeast (Budding) (None) /hpf Influenza Type A (PCR) Not Detected (Not Detectd) Influenza Type B (PCR) Not Detected (Not Detectd) RSV (PCR) Not Detected (Not Detectd) SARS-CoV-2 (PCR) Not Detected (Not Detectd) 01/17/25 Range/Units 10:21 WBC (4.50-10.00) 10*3/uL RBC (4.10-5.20) 10*6/uL Hgb (12.0-15.0) g/dL Hct (37.2-46.3) % MCV (80.0-97.0) fL MCH (27.0-32.0) pg MCHC (32.0-37.0) g/dL Plt Count (140-440) 10*3/uL MPV (9.5-12.2) fL Immature Gran % (Auto) % Neutrophils % % Lymphocytes % % Monocytes % % Eosinophils % % Basophils % % Immature Gran # (0.00-0.04) 10*3/uL Neutrophils # (1.80-7.70) 10*3/uL Lymphocytes # (0.90-5.00) 10*3/uL Monocytes # (0.20-1.00) 10*3/uL Eosinophils # (0.04-0.35) 10*3/uL Basophils # (0.00-0.10) 10*3/uL Sodium (137-145) mmol/L Potassium (3.5-5.1) mmol/L Chloride (98-107) mmol/L Carbon Dioxide (22-30) mmol/L Anion Gap mmol/L BUN (7-17) mg/dL Creatinine (0.52-1.04) mg/dL Est GFR (CKD-EPI)AfAm (>60 ml/min/1.73 sqM) Est GFR (CKD-EPI)NonAf (>60 ml/min/1.73 sqM) Glucose (74-99) mg/dL Calcium (8.4-10.2) mg/dL Total Bilirubin (0.2-1.3) mg/dL AST (14-36) U/L ALT (4-34) U/L Alkaline Phosphatase (38-126) U/L Total Protein (6.3-8.2) g/dL Albumin (3.5-5.0) g/dL Urine Color Colorless Urine Appearance Cloudy H (Clear) Urine pH 5.5 (5.0-8.0) Ur Specific [place] 1.026 (1.001-1.035) Urine Protein Negative (Negative) Urine Glucose (UA) 4+ H (Negative) Urine Ketones 2+ H (Negative) Urine Blood Trace H (Negative) Urine Nitrite Negative (Negative) Urine Bilirubin Negative (Negative) Urine Urobilinogen <2.0 (<2.0) mg/dL Ur Leukocyte Esterase Moderate H (Negative) Urine RBC 28 H (0-5) /hpf Urine WBC 10 H (0-5) /hpf Ur Squamous Epith Cells 19 H (0-4) /hpf Urine Bacteria Rare H (None) /hpf Urine Yeast (Budding) Many H (None) /hpf Influenza Type A (PCR) (Not Detectd) Influenza Type B (PCR) (Not Detectd) RSV (PCR) (Not Detectd) SARS-CoV-2 (PCR) (Not Detectd) Disposition <Marlena Boyle - Last Filed: 01/17/25 08:16> Is patient prescribed a controlled substance at d/c from ED?: No Time of Disposition: 12:08 <Abraham Ames - Last Filed: 01/18/25 07:48> Clinical Impression: Nausea and vomiting Disposition: HOME SELF-CARE Condition: Fair Instructions (If sedation given, give patient instructions): Acute Nausea and Vomiting (ED) Prescriptions: Metoclopramide HCl [Reglan] 5 mg PO TID PRN #12 tablet PRN Reason: Nausea Referrals: Teresa Fields MD [Primary Care Provider] - 1-2 days
[2025-01-17 08:35] VITALS: TEMP 98.1
[2025-01-17 08:40] LABS: Basophils # (A) 0.04 10*3/uL (0.00-0.10); Basophils % (A) 0.4 %; Eosinophils # (A) 0.02 10*3/uL (0.04-0.35); Eosinophils % (A) 0.2 %; HCT 38.9 % (37.2-46.3); HGB 11.8 g/dL (12.0-15.0); Lymphocytes # (A) 1.64 10*3/uL (0.90-5.00); Lymphocytes % (A) 14.7 %; MCH 25.1 pg (27.0-32.0); MCHC 30.3 g/dL (32.0-37.0); MCV 82.6 fL (80.0-97.0); Monocytes % (A) 5.4 %; Neutrophils # (A) 8.84 10*3/uL (1.80-7.70); Neutrophils % (A) 78.9 %; Platelet Count 312 10*3/uL (140-440); RBC 4.71 10*6/uL (4.10-5.20); RDW 18.4 % (11.5-14.5); WBC 11.18 10*3/uL (4.50-10.00)
[2025-01-17 08:53] LABS: ALT 11 U/L (4-34); AST 29 U/L (14-36); African American GFR (CKD) 81 (>60 ml/min/1.73 sqM); Albumin 4.2 g/dL (3.5-5.0); Alkaline Phosphatase 127 U/L (38-126); Anion Gap 21 mmol/L; Blood Urea Nitrogen 20 mg/dL (7-17); Calcium 9.7 mg/dL (8.4-10.2); Carbon Dioxide 19 mmol/L (22-30); Chloride 97 mmol/L (98-107); Glucose 352 mg/dL (74-99); Non-African American GFR(CKD) 70 (>60 ml/min/1.73 sqM); Potassium 4.4 mmol/L (3.5-5.1); Sodium 137 mmol/L (137-145); Total Bilirubin 0.8 mg/dL (0.2-1.3); Total Protein 7.7 g/dL (6.3-8.2)
[2025-01-17 09:15] LABS: Influenza A Not Detected (Not Detectd); Influenza B Not Detected (Not Detectd); RSV Not Detected (Not Detectd)
[2025-01-17] MEDS: LACTATED RINGERS 1,000 ML IV ONE (10:09)
--- NOTE | 2025-01-17 10:17 | US ---
EXAMINATION TYPE: US gallbladder DATE OF EXAM: 01/17/2025 COMPARISON: US 11/29/2024 CLINICAL INDICATION: Female, 69 years old with history of vomiting RUQ pain; No pain. Vomiting starte d . TECHNIQUE: Grayscale and color Doppler imaging of the right upper quadrant. FINDINGS: EXAM MEASUREMENTS: Liver Length: 12.7 cm Gallbladder Wall: 0.20 cm CBD: Obscured Right Kidney: 10.8 x 4.8 x 4.5 cm MEDICAL REIMBURSEMENT MANAGER NOTES: Exam is extremely limited due to gas. Pancreas: Obscured Liver: *Extremely limited evaluation due to the large amount of gas. Images taken in LLD. Gallbladder: Possible 1.6 cm gallstone. Very limited evaluation. No abnormal distention. Evidence for sonographic Huffman's sign: No CBD: Obscured Right Kidney: *Detailed parenchymal assessment limited. Midpole echogenic focus measuring 6 mm. Eith er a stone or prominent vascular reflect are. No obvious hydronephrosis. IMPRESSION: 1. Possible 1.6 cm gallstone. No gallbladder hydrops or zeinab surrounding fluid or abnormal wall thic kening. 2. The bile duct is obscured and cannot be evaluated. 3. Urinary 6 mm nonobstructive right mid pole renal stone versus prominent vascular reflector. [facility], , 01/17/2025 10:14 AM
[2025-01-17 10:22] VITALS: RESP 18
[2025-01-17 10:58] LABS: Appearance,Urine Cloudy (Clear); Bacteria,Urine Rare /hpf; Bilirubin,Urine Negative (Negative); Blood,Urine Trace (Negative); Budding Yeast,Urine Many /hpf; Color,Urine Colorless; Glucose,Urine (UA) 4+ (Negative); Leukocyte Esterase,Urine Moderate (Negative); Nitrite,Urine Negative (Negative); PH, Urine 5.5 (5.0-8.0); Protein,Urine Negative (Negative); RBC,Urine 28 /hpf (0-5); Specific Gravity,Urine 1.026 (1.001-1.035); Squamous Epithelial Cell,Urine 19 /hpf (0-4); Urobilinogen,Urine <2.0 mg/dL (<2.0); WBC,Urine 10 /hpf (0-5)
[2025-01-17 11:02] LABS: Ketones,Urine 2+ (Negative)
[2025-01-17 12:21] VITALS: BP 118/56; PULSE 109
== END 2025-01-17 12:26 | disposition home or self-care (01) ==
LOC: EC 08:01
DX: K80.20 Calculus of gallbladder without cholecystitis without obstruction (principal); E11.9 Type 2 diabetes mellitus without complications; I48.91 Unspecified atrial fibrillation; Z11.52 Encounter for screening for COVID-19
CPT/HCPCS: 36415; 76705; 80053; 81001; 85025; 87636; 93005; 96360; 96361; 99285

== ENCOUNTER 2025-01-17 18:22 | Inpatient (IN) | payer MEDICARE ==
--- NOTE | 2025-01-17 18:32 | ED ---
General Adult HPI - General Source: patient Mode of arrival: wheelchair Limitations: no limitations <Abilio Castro - Last Filed: 01/17/25 18:31> - General Source: patient, family, RN notes reviewed, old records reviewed Mode of arrival: wheelchair - History of Present Illness -: days(s) Quality: aching Consistency: constant Improves with: none Worsens with: none Associated Symptoms: loss of appetite, nausea/vomiting, weakness Treatments Prior to Arrival: none <Juan Esposito - Last Filed: 01/24/25 00:25> - General Stated complaint: Vomiting Time Seen by Provider: 01/17/25 18:31 - History of Present Illness Initial comments: 69-year-old female presenting with chief complaint of nausea and vomiting. Patient was seen here earlier today and had an ultrasound which showed a gallstone. She states that at home she started vomiting again and she called her PCP Dr. Fields who told her to come back to the ER. No chest pain. No abdominal pain. (Abilio Castro) This is a 68-year-old female with reevaluation of nausea and vomiting occasional abdominal pain but mainly persistent nausea vomiting, patient was feeling improv ed earlier upon discharge but has had persistent vomiting since she went home. She has no chest pain no abdominal pain no shortness of breath (Juan Esposito) - Related Data Home Medications Medication Instructions Recorded Confirmed Levothyroxine Sodium [Synthroid] 112 mcg PO DAILY@0600 05/16/19 01/18/25 Famotidine [Pepcid] 20 mg PO BID@09,209904/26/20 01/18/25 Apixaban [Eliquis] 5 mg PO BID@0900,209908/21/24 01/18/25 Empagliflozin [Jardiance] 25 mg PO DAILY@89908/21/24 01/18/25 Metoprolol Tartrate [Lopressor] 25 mg PO BID@899,209910/23/24 01/18/25 Aspirin 81 mg PO DAILY@89911/26/24 01/18/25 DULoxetine HCL [Cymbalta] 30 mg PO HS@209911/26/24 01/18/25 INSULIN LISPRO (HumaLOG) [HumaLOG] See Protocol SQ ACHS 11/26/24 01/18/25 Omeprazole 20 mg PO DAILY@59911/26/24 01/18/25 Ondansetron [Zofran] 4 mg PO Q6H PRN 11/26/24 01/18/25 Potassium Chloride ER [K-Dur 20] 20 meq PO DAILY@89911/26/24 01/18/25 Tamsulosin [Flomax] 0.4 mg PO DAILY@89911/26/24 01/18/25 Torsemide [Soaanz] 40 mg PO DAILY@59911/26/24 01/18/25 HYDROcodone/APAP 10-325MG [[place] 1 tab PO Q12H PRN 01/18/25 01/18/25 10-325] Insulin Glargine,Hum.rec.anlog 24 units SQ HS@209901/18/25 01/18/25 [Lantus Solostar Pen] allopurinoL 100 mg PO HS@209901/18/25 01/18/25 Previous Rx's Medication Instructions Recorded Losartan [Cozaar] 25 mg PO DAILY tab 12/01/24 Metoclopramide HCl [Reglan] 5 mg PO TID PRN #12 tablet 01/17/25 Allergies Allergy/AdvReac Type Severity Reaction Status Date / Time No Known Allergies Allergy Verified 01/18/25 09:56 Review of Systems ROS Other: All systems not noted in ROS Statement are negative. <Abilio Castro - Last Filed: 01/17/25 18:31> ROS Other: All systems not noted in ROS Statement are negative. <Juan Esposito - Last Filed: 01/24/25 00:25> ROS Statement: Those systems with pertinent positive or pertinent negative responses have been documented in the HPI. Past Medical History Past Medical History: Atrial Flutter, Coronary Artery Disease (CAD), Diabetes Mellitus, Hypertension, Myocardial Infarction (ND), Pulmonary Embolus (PE), Skin Disorder, Thyroid Disorder Additional Past Medical History / Comment(s): hypothyroid, kidney stone, glaucoma, hx of PE, was in [facility] recently for rehab due to back issues, recent adm. to [facility] for N/V, states had "heart attack", had cardiac cath. but no new st ents, elevated liver enzymes, current wound left heel, is wrapped-will be going to wound center soon Last Myocardial Infarction Date:: 2022 History of Any Multi-Drug Resistant Organisms: None Reported Past Surgical History: Back Surgery, Heart Catheterization, Heart Catheterization With Stent, Hysterectomy Additional Past Surgical History / Comment(s): kidney stones removed and stent CATARACTS REMOVED AND STENT PUT IN FOR GLUCOMA. 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 Patient has difficulty waking up after anesthesia, patient will be very fatigued for about 24H post anesthesia (updated 11/28/2024) Date of Last Stent Placement:: 2021 Past Psychological History: No Psychological Hx Reported Smoking Status: Never smoker - Past Family History Mother Family Medical History: No Reported History Father Additional Family Medical History / Comment(s): Heart history <Abilio Castro - Last Filed: 01/17/25 18:31> General Exam <Abilio Castro - Last Filed: 01/17/25 18:31> General appearance: alert, anxious Head exam: Present: atraumatic, normocephalic, normal inspection Eye exam: Present: normal appearance, PERRL, EOMI. Absent: scleral icterus, conjunctival injection, periorbital swelling ENT exam: Present: normal exam, mucous membranes moist Neck exam: Present: normal inspection. Absent: tenderness, meningismus, lymphadenopathy Respiratory exam: Present: normal lung sounds bilaterally. Absent: respiratory distress, wheezes, rales, rhonchi, stridor Cardiovascular Exam: Present: normal rhythm, tachycardia, normal heart sounds. Absent: systolic murmur, diastolic murmur, rubs, gallop, clicks GI/Abdominal exam: Present: soft, normal bowel sounds. Absent: distended, tenderness, guarding, rebound, rigid Extremities exam: Present: normal inspection, full ROM, normal capillary refill. Absent: tenderness, pedal edema, joint swelling, calf tenderness Back exam: Present: normal inspection Neurological exam: Present: alert, oriented X3, CN II-XII intact Psychiatric exam: Present: normal affect, normal mood Skin exam: Present: warm, dry, intact, normal color. Absent: rash <Roskopp,Juan B - Last Filed: 01/24/25 00:25> - General Exam Comments Initial Comments: Visual Physical Exam Vital signs reviewed General: Well-appearing, nontoxic, no acute distress. Head: Normocephalic, atraumatic Eyes: PERRLA, EOMI ENT: Airway patent Chest: Nonlabored breathing Skin: No visual rash, normal skin tone Neuro: Alert and oriented 3 Musculoskeletal: No gross abnormalities (Abilio Castro) Course <Juan Esposito - Last Filed: 01/24/25 00:25> Vital Signs 01/17/25 01/18/25 01/18/25 18:30 00:46 02:23 Temperature 97.9 F Pulse Rate 102 H 125 H 120 H Respiratory 20 20 18 Rate Blood Pressure 128/97 115/70 90/55 O2 Sat by Pulse 100 99 94 L Oximetry 01/18/25 01/18/25 01/18/25 03:30 06:00 07:30 Temperature 97.7 F Pulse Rate 117 H 114 H 105 H Respiratory 25 H 24 18 Rate Blood Pressure 115/65 114/61 O2 Sat by Pulse 100 99 Oximetry 01/18/25 01/18/25 01/18/25 08:00 08:07 09:00 Temperature Pulse Rate 105 H 104 H Respiratory 18 18 Rate Blood Pressure 127/56 O2 Sat by Pulse 99 99 100 Oximetry 01/18/25 01/18/25 01/18/25 10:00 11:00 12:00 Temperature 97.6 F Pulse Rate 103 H 89 86 Respiratory 18 18 18 Rate Blood Pressure 102/88 94/52 82/56 O2 Sat by Pulse 96 100 95 Oximetry 01/18/25 01/18/25 01/18/25 13:00 13:45 13:53 Temperature 98.3 F Pulse Rate 89 61 Respiratory 16 18 Rate Blood Pressure 99/54 97/76 O2 Sat by Pulse 99 99 99 Oximetry - Reevaluation(s) Reevaluation #1: 01/18/25 00:13 Medical records reviewed ER visit from earlier today is reviewed ultrasound gallbladder negative, nausea vomiting no acidosis (Juan Esposito) Reevaluation #2: 01/18/25 00:13 Patient has mild improvement in nausea and vomiting here in the ER (Juan Esposito) Reevaluation #3: 01/18/25 00:14 Patient and family informed of results questions answered (Juan Esposito) Reevaluation #4: Was pt. sent in by a medical professional or institution (JOSHUA Barrera, [employer], urgent care, hospital, or usp...) When possible be specific @ -no Did you speak to anyone other than the patient for history (EMS, parent, family, police, friend...)? What history was obtained from this source @ -no Did you review nursing and triage notes (agree or disagree)? Why? @ -agree Are old charts reviewed (outside hosp., previous admission, EMS record, old EKG, old radiological studies, urgent care reports/EKG's, usp records)? Report findings @ -yes Differential Diagnosis (chest pain, altered mental status, abdominal pain women, abdominal pain men, vaginal bleeding, weakness, fever, dyspnea, syncope, headache, dizziness, GI bleed, back pain, seizure, CVA, palpatations, mental health, musculoskeletal)? @ -prior EKG interpreted by me (3pts min.). @ -yes X-rays interpreted by me (1pt min.). @ -yes positive for CHF CT interpreted by me (1pt min.). @ -yes negative for acute disease U/S interpreted by me (1pt. min.). @ -no What testing was considered but not performed or refused? (CT, X-rays, U/S, labs)? Why? @ -none What meds were considered but not given or refused? Why? @ -none Did you discuss the management of the patient with other professionals (professionals i.e. JOSHUA Barrera, [employer], lab, RT, psych nurse, social studies department chair, net mender, teacher, compliance review officer, family service caseworker)? Give summary @ -no Was smoking cessation discussed for >3mins.? @ -no Was critical care preformed (if so, how long)? @ -yes31 Were there social determinants of health that impacted care today? How? (Homelessness, low income, unemployed, alcoholism, drug addiction, transportati on, low edu. Level, literacy, decrease access to med. care, senior care, rehab)? @ -none Was there de-escalation of care discussed even if they declined (Discuss DNR or withdrawal of care, Hospice)? DNR status @ -no What co-morbidities impacted this encounter? (DM, HTN, Smoking, COPD, CAD, Cancer, CVA, ARF, Chemo, Hep., AIDS, mental health diagnosis, sleep apnea, morbid obesity)? @ -none Was patient admitted / discharged? Hospital course, mention meds given and route, prescriptions, significant lab abnormalities, going to OR and other pertinent info. @ - 69 female to the ER for evaluation of abdominal pain severe with nausea vomiting. Normal ultrasound gallbladder earlier today white count is increasing nausea vomiting is increasing we will admit for symptomatic treatment with persistent nausea vomiting elevated blood sugar DKA non-ST elevated ND Admitted Undiagnosed new problem with uncertain prognosis? @ -no Drug Therapy requiring intensive monitoring for toxicity (Heparin, Nitro, Ins ulin, Cardizem)? @ -no Were any procedures done? @ -no Diagnosis/symptom? @ -Nausea vomiting DKA NSTEMI Acute, or Chronic, or Acute on Chronic? @ -Acute Uncomplicated (without systemic symptoms) or Complicated (systemic symptoms)? @ -Complicated Side effects of treatment? @ -no Exacerbation, Progression, or Severe Exacerbation? @ -exacerbation Poses a threat to life or bodily function? How? (Chest pain, USA, ND, pneumonia, PE, COPD, DKA, ARF, appy, cholecystitis, CVA, Diverticulitis, Homicidal, Suicidal, threat to staff... and all critical care pts) @ -yes DKA with non-STEMI (Juan Esposito) Reevaluation #5: Differential Abdominal Pain Women: Appendicitis, Cholecystitis, diverticulosis, ischemic bowel, pancreatitis, hepatitis, UTI, gastroenteritis, AAA, incarcerated hernia, bowel obstruction, constipation, inflammatory bowel, hepatitis, peptic ulcer disease, splenic infarction, perforated viscus, vulvitis, ovarian torsion, PID, kidney stone, placenta abruption, this is not meant to be an all-inclusive list (Juan Esposito) - Consultations Consultation #1: Spoke with Dr. Fields who is aware patient will accept the patient and would like the patient admitted to the ICU (Juan Esposito) Consultation #2: Spoke with Dr. Foreman regarding admission (Juan Esposito) EKG Findings - EKG Comments: EKG Findings:: EKG is sinus tach 122 NH 107 QRS 129 QTc 447 - EKG Results: EKG: interpreted by ERMD <Juan Esposito - Last Filed: 01/24/25 00:25> Medical Decision Making <Abilio Castro - Last Filed: 01/17/25 18:31> - Lab Data Result diagrams: 01/22/25 05:44 01/22/25 05:44 - EKG Data -: EKG Interpreted by Me - Radiology Data Radiology results: report reviewed (CT abdomen pelvis negative for acute disease, chest x-ray positive CHF), image reviewed <Juan Esposito - Last Filed: 01/24/25 00:25> - Medical Decision Making I performed the quick note portion of this visit, electronically signed Abilio Castro PA-C (Abilio Castro) 69 female to the ER for evaluation of abdominal pain severe with nausea vo miting. Normal ultrasound gallbladder earlier today white count is increasing nausea vomiting is increasing we will admit for symptomatic treatment (Juan Esposito) - Lab Data Lab Results 01/17/25 01/17/25 01/17/25 Range/Units 23:09 23:09 23:09 WBC 15.94 H (4.50-10.00) 10*3/uL RBC 4.42 (4.10-5.20) 10*6/uL Hgb 11.1 L (12.0-15.0) g/dL Hct 38.4 (37.2-46.3) % MCV 86.9 (80.0-97.0) fL MCH 25.1 L (27.0-32.0) pg MCHC 28.9 L (32.0-37.0) g/dL Plt Count 321 (140-440) 10*3/uL MPV 11.3 (9.5-12.2) fL Immature Gran % (Auto) 0.5 % Neutrophils % 92.7 % Lymphocytes % 2.9 % Monocytes % 3.7 % Eosinophils % 0.0 % Basophils % 0.2 % Immature Gran # 0.08 H (0.00-0.04) 10*3/uL Neutrophils # 14.77 H (1.80-7.70) 10*3/uL Lymphocytes # 0.47 L (0.90-5.00) 10*3/uL Monocytes # 0.59 (0.20-1.00) 10*3/uL Eosinophils # 0.00 L (0.04-0.35) 10*3/uL Basophils # 0.03 (0.00-0.10) 10*3/uL PT 10.7 (10.0-12.5) sec INR 1.0 (<1.2) APTT 20.0 L (22.0-30.0) sec Sodium 136 L (137-145) mmol/L Potassium 4.6 (3.5-5.1) mmol/L Chloride 93 L (98-107) mmol/L Carbon Dioxide 7 L* (22-30) mmol/L Anion Gap 36 mmol/L BUN 22 H (7-17) mg/dL Creatinine 0.96 (0.52-1.04) mg/dL Est GFR (CKD-EPI)AfAm 69 (>60 ml/min/1.73 sqM) Est GFR (CKD-EPI)NonAf 60 (>60 ml/min/1.73 sqM) Glucose 525 H* (74-99) mg/dL Plasma Lactic Acid Kilo (0.7-2.0) mmol/L Calcium 10.2 (8.4-10.2) mg/dL Phosphorus 5.6 H (2.5-4.5) mg/dL Magnesium 1.8 (1.6-2.3) mg/dL Total Bilirubin 0.7 (0.2-1.3) mg/dL AST 37 H (14-36) U/L ALT 13 (4-34) U/L Alkaline Phosphatase 118 (38-126) U/L Troponin I (0.000-0.034) ng/mL NT-Pro-B Natriuret Pep 83184 pg/mL Total Protein 7.2 (6.3-8.2) g/dL Albumin 4.0 (3.5-5.0) g/dL TSH 1.170 (0.465-4.680) mIU/L 01/17/25 01/17/25 Range/Units 23:09 23:09 WBC (4.50-10.00) 10*3/uL RBC (4.10-5.20) 10*6/uL Hgb (12.0-15.0) g/dL Hct (37.2-46.3) % MCV (80.0-97.0) fL MCH (27.0-32.0) pg MCHC (32.0-37.0) g/dL Plt Count (140-440) 10*3/uL MPV (9.5-12.2) fL Immature Gran % (Auto) % Neutrophils % % Lymphocytes % % Monocytes % % Eosinophils % % Basophils % % Immature Gran # (0.00-0.04) 10*3/uL Neutrophils # (1.80-7.70) 10*3/uL Lymphocytes # (0.90-5.00) 10*3/uL Monocytes # (0.20-1.00) 10*3/uL Eosinophils # (0.04-0.35) 10*3/uL Basophils # (0.00-0.10) 10*3/uL PT (10.0-12.5) sec INR (<1.2) APTT (22.0-30.0) sec Sodium (137-145) mmol/L Potassium (3.5-5.1) mmol/L Chloride (98-107) mmol/L Carbon Dioxide (22-30) mmol/L Anion Gap mmol/L BUN (7-17) mg/dL Creatinine (0.52-1.04) mg/dL Est GFR (CKD-EPI)AfAm (>60 ml/min/1.73 sqM) Est GFR (CKD-EPI)NonAf (>60 ml/min/1.73 sqM) Glucose (74-99) mg/dL Plasma Lactic Acid Kilo 4.5 H* (0.7-2.0) mmol/L Calcium (8.4-10.2) mg/dL Phosphorus (2.5-4.5) mg/dL Magnesium (1.6-2.3) mg/dL Total Bilirubin (0.2-1.3) mg/dL AST (14-36) U/L ALT (4-34) U/L Alkaline Phosphatase (38-126) U/L Troponin I 2.180 H* (0.000-0.034) ng/mL NT-Pro-B Natriuret Pep pg/mL Total Protein (6.3-8.2) g/dL Albumin (3.5-5.0) g/dL TSH (0.465-4.680) mIU/L Critical Care Time Critical Care Time: Yes Total Critical Care Time: 31 <Juan Esposito - Last Filed: 01/24/25 00:25> Disposition <Abilio Castro - Last Filed: 01/17/25 18:31> Is patient prescribed a controlled substance at d/c from ED?: No Time of Disposition: 23:30 <Juan Esposito - Last Filed: 01/24/25 00:25> Clinical Impression: Dehydration, Gastroenteritis, Nausea & vomiting, Type 2 diabetes mellitus with other skin ulcer, Weakness, NSTEMI (non-ST elevated myocardial infarction), DKA (diabetic ketoacidosis), Elevated troponin, Lactic acidosis Disposition: ADMITTED IP TO THIS HOSP Condition: Critical
[2025-01-17] MEDS: ONDANSETRON 4 MG/2 ML VIAL IVP STA (23:08)
[2025-01-17] MEDS: SODIUM CHLORIDE 0.9% 1,000 ML IV ONE (23:08)
[2025-01-17] MEDS ORDERED: MORPHINE SULFATE 4 MG/ML SYRINGE IV PRN (23:32)
[2025-01-17] MEDS ORDERED: NALOXONE 0.4 MG/ML 1 ML VIAL IV PRN (23:32)
[2025-01-17] MEDS ORDERED: LORazepam 1 MG/0.5 ML VIAL IV PRN (23:32)
[2025-01-17 23:36] LABS: Basophils # (A) 0.03 10*3/uL (0.00-0.10); Basophils % (A) 0.2 %; Eosinophils # (A) 0.00 10*3/uL (0.04-0.35); Eosinophils % (A) 0.0 %; HCT 38.4 % (37.2-46.3); HGB 11.1 g/dL (12.0-15.0); Lymphocytes # (A) 0.47 10*3/uL (0.90-5.00); Lymphocytes % (A) 2.9 %; MCH 25.1 pg (27.0-32.0); MCHC 28.9 g/dL (32.0-37.0); MCV 86.9 fL (80.0-97.0); Monocytes # (A) 0.59 10*3/uL (0.20-1.00); Monocytes % (A) 3.7 %; Neutrophils # (A) 14.77 10*3/uL (1.80-7.70); Neutrophils % (A) 92.7 %; Platelet Count 321 10*3/uL (140-440); RBC 4.42 10*6/uL (4.10-5.20); RDW 18.8 % (11.5-14.5); WBC 15.94 10*3/uL (4.50-10.00)
[2025-01-17 23:48] LABS: ALT 13 U/L (4-34); AST 37 U/L (14-36); African American GFR (CKD) 69 (>60 ml/min/1.73 sqM); Albumin 4.0 g/dL (3.5-5.0); Alkaline Phosphatase 118 U/L (38-126); Anion Gap 36 mmol/L; Blood Urea Nitrogen 22 mg/dL (7-17); Calcium 10.2 mg/dL (8.4-10.2); Chloride 93 mmol/L (98-107); Magnesium 1.8 mg/dL (1.6-2.3); Non-African American GFR(CKD) 60 (>60 ml/min/1.73 sqM); Potassium 4.6 mmol/L (3.5-5.1); Sodium 136 mmol/L (137-145); Total Protein 7.2 g/dL (6.3-8.2)
[2025-01-17 23:56] LABS: Glucose 525 mg/dL (74-99); NT-Pro-B-Type Natriuretic Pept 19700 pg/mL
[2025-01-17 23:57] LABS: Carbon Dioxide 7 mmol/L (22-30)
[2025-01-18 00:14] LABS: INR 1.0 (<1.2); Prothrombin Time 10.7 sec (10.0-12.5)
[2025-01-18] MEDS ORDERED: DEXTROSE 50% SYRINGE 50 ML IVP PRN ×4 (00:17→17:50)
[2025-01-18] MEDS ORDERED: Potassium Replacement Protocol 1 EACH MISC MISCELLANE PRN (00:17)
[2025-01-18] MEDS ORDERED: Magnesium Replacement Protocol 1 EACH MISC MISCELLANE PRN (00:17)
[2025-01-18 00:29] LABS: Partial Thromboplastin Time 20.0 sec (22.0-30.0)
[2025-01-18 00:43] LABS: Glucose,Whole Blood 457 mg/dL (70-110)
[2025-01-18 01:36] LABS: Glucose,Whole Blood 512 mg/dL (70-110)
[2025-01-18] MEDS: INSULIN REGULAR 100 UNIT in SODIUM CHLORIDE 0.9% 100 ML IV SCH (01:43)
[2025-01-18] MEDS: PANTOPRAZOLE 40 MG/10 ML VIAL IV SCH (01:57)
[2025-01-18] MEDS: AMPICILLIN-SULBACTAM 3 GM in SODIUM CHLORIDE 0.9% 100 ML IVPB STA (02:00)
[2025-01-18] MEDS: SODIUM CHLORIDE 0.9% 1,000 ML IV ONE ×2 (02:15→02:22)
[2025-01-18 02:43] LABS: Glucose,Whole Blood 524 mg/dL (70-110)
[2025-01-18] MEDS: DEXTROSE 5%-0.45% NACL 1,000 ML IV SCH (02:58)
[2025-01-18] MEDS: D5-0.45% NACL WITH KCL 20MEQ/L 1,000 ML IV SCH (03:28)
[2025-01-18] MEDS: SODIUM CHLORIDE 0.9% 1,000 ML IV SCH (03:30)
--- NOTE | 2025-01-18 03:55 | CT ---
EXAM: CT Abdomen and Pelvis With Intravenous Contrast CLINICAL HISTORY: ITS.REASON CT Reason: pain TECHNIQUE: Axial computed tomography images of the abdomen and pelvis with intravenous contrast. CTDI is 22.9 mGy and DLP is 1140.7 mGy-cm. This CT exam was performed using one or more of the following dose reduction techniques: automated exposure control, adjustment of the mA and/or kV according to patient size, and/or use of iterative reconstruction technique. COMPARISON: CT Abdomen Pelvis dated 11/26/2024 FINDINGS: Lung bases: Unremarkable. No mass. No consolidation. Mediastinum: Moderate hiatal hernia. ABDOMEN: Liver: Unremarkable. No mass. Gallbladder and bile ducts: Unremarkable. No calcified stones. No ductal dilation. Pancreas: Unremarkable. No mass. No ductal dilation. Spleen: Unremarkable. No splenomegaly. Adrenals: Unremarkable. No mass. Kidneys and ureters: Unremarkable. No solid mass. No hydronephrosis. Stomach and bowel: No evidence of bowel obstruction. Colonic diverticulosis. No evidence of diverticulitis. PELVIS: Appendix: Normal appendix. Bladder: Unremarkable. No mass. Reproductive: Hysterectomy changes. ABDOMEN and PELVIS: Intraperitoneal space: Unremarkable. No free air. No significant fluid collection. Bones/joints: Degenerative changes in the spine. L3 and L4 laminectomy changes and L5 partial laminectomy changes. Unchanged lucencies within the spine which may be due to areas of bone demineralization. Consider MRI if there is further concern. No acute fracture. No dislocation. Soft tissues: Umbilical hernia containing fat. Vasculature: Atherosclerotic disease. No abdominal aortic aneurysm. Lymph nodes: Unremarkable. No enlarged lymph nodes. IMPRESSION: 1. Normal appendix. 2. No evidence of bowel obstruction. 3. Colonic diverticulosis. No evidence of diverticulitis. 4. Unchanged lucencies within the spine which may be due to areas of bone demineralization. Consider MRI if there is further concern. 5. Moderate hiatal hernia. 6. No other acute findings.
[2025-01-18 04:01] LABS: Glucose,Whole Blood 393 mg/dL (70-110)
[2025-01-18 04:34] LABS: VBG PCO2 23.0 mmHg (37-51); VBG PH 7.22 (7.31-7.41)
[2025-01-18 04:43] LABS: VBG HCO3 10.0 mmol/L (24-28)
[2025-01-18 04:47] LABS: ALT 13 U/L (4-34); AST 42 U/L (14-36); African American GFR (CKD) 63 (>60 ml/min/1.73 sqM); Albumin 3.9 g/dL (3.5-5.0); Alkaline Phosphatase 99 U/L (38-126); Anion Gap 35 mmol/L; Blood Urea Nitrogen 24 mg/dL (7-17); Calcium 9.8 mg/dL (8.4-10.2); Chloride 98 mmol/L (98-107); Glucose 413 mg/dL (74-99); Lipase 118 U/L (23-300); Magnesium 1.8 mg/dL (1.6-2.3); Non-African American GFR(CKD) 54 (>60 ml/min/1.73 sqM); Potassium 3.9 mmol/L (3.5-5.1); Sodium 141 mmol/L (137-145); Total Protein 7.1 g/dL (6.3-8.2)
[2025-01-18 05:09] LABS: Glucose,Whole Blood 304 mg/dL (70-110)
[2025-01-18 05:54] LABS: Glucose,Whole Blood 268 mg/dL (70-110)
[2025-01-18 05:55] LABS: Carbon Dioxide 8 mmol/L (22-30)
[2025-01-18] MEDS ORDERED: NALOXONE 0.4 MG/ML 1 ML VIAL IV PRN (06:45)
[2025-01-18] MEDS ORDERED: IPRATROPIUM-ALBUTEROL 3 ML NEB INHALATION PRN (06:45)
[2025-01-18 07:24] LABS: Glucose,Whole Blood 224 mg/dL (70-110)
[2025-01-18] MEDS: HEPARIN SOD,PORK IN 0.45% NACL 25,000 UNIT in 0.45% NACL 1 250ML.BAG IV SCH (07:24)
[2025-01-18] MEDS: HEPARIN SODIUM 1,000 UN/ML (10ML VL) IV ONE (07:24)
--- NOTE | 2025-01-18 07:27 | XR ---
EXAMINATION TYPE: XR chest 1V DATE OF EXAM: 01/18/2025 COMPARISON: 08/21/2024 CLINICAL INDICATION: Female, 69 years old with history of cp; TECHNIQUE: Single frontal view of the chest is obtained. FINDINGS: Heart moderately enlarged. Diffuse interstitial densities. Patchy retrocardiac opacity. No sizable pl eural effusion though lung volumes are low. IMPRESSION: 1. Moderate cardiomegaly and interstitial densities suggesting CHF with pulmonary vascular congestion . 2. Patchy retrocardiac atelectasis and/or consolidation. [facility], Workstation: Yesenia-GILMA, 01/18/2025 7:25 AM
[2025-01-18 08:08] LABS: Basophils # (A) 0.02 10*3/uL (0.00-0.10); Basophils % (A) 0.1 %; Eosinophils # (A) 0.00 10*3/uL (0.04-0.35); Eosinophils % (A) 0.0 %; HCT 32.3 % (37.2-46.3); Lymphocytes # (A) 0.93 10*3/uL (0.90-5.00); Lymphocytes % (A) 5.8 %; MCH 25.1 pg (27.0-32.0); MCHC 29.7 g/dL (32.0-37.0); MCV 84.6 fL (80.0-97.0); Monocytes # (A) 1.46 10*3/uL (0.20-1.00); Monocytes % (A) 9.1 %; Neutrophils # (A) 13.47 10*3/uL (1.80-7.70); Neutrophils % (A) 84.4 %; Platelet Count 306 10*3/uL (140-440); RBC 3.82 10*6/uL (4.10-5.20); RDW 18.7 % (11.5-14.5); WBC 15.97 10*3/uL (4.50-10.00)
[2025-01-18 08:14] LABS: HGB 9.6 g/dL (12.0-15.0)
[2025-01-18 08:22] LABS: Glucose,Whole Blood 231 mg/dL (70-110)
[2025-01-18 08:28] LABS: ALT 14 U/L (4-34); AST 62 U/L (14-36); African American GFR (CKD) 71 (>60 ml/min/1.73 sqM); Albumin 3.5 g/dL (3.5-5.0); Alkaline Phosphatase 91 U/L (38-126); Anion Gap 18 mmol/L; Blood Urea Nitrogen 24 mg/dL (7-17); Calcium 9.1 mg/dL (8.4-10.2); Carbon Dioxide 20 mmol/L (22-30); Chloride 103 mmol/L (98-107); Glucose 263 mg/dL (74-99); Non-African American GFR(CKD) 61 (>60 ml/min/1.73 sqM); Potassium 3.5 mmol/L (3.5-5.1); Sodium 141 mmol/L (137-145); Total Protein 6.7 g/dL (6.3-8.2)
[2025-01-18 09:04] LABS: Glucose,Whole Blood 190 mg/dL (70-110)
[2025-01-18 09:39] LABS: Basophils # (A) 0.03 10*3/uL (0.00-0.10); Basophils % (A) 0.2 %; Eosinophils # (A) 0.00 10*3/uL (0.04-0.35); Eosinophils % (A) 0.0 %; HCT 32.4 % (37.2-46.3); HGB 9.7 g/dL (12.0-15.0); Lymphocytes # (A) 0.90 10*3/uL (0.90-5.00); Lymphocytes % (A) 5.8 %; MCH 25.3 pg (27.0-32.0); MCHC 29.9 g/dL (32.0-37.0); MCV 84.4 fL (80.0-97.0); Monocytes # (A) 1.37 10*3/uL (0.20-1.00); Monocytes % (A) 8.8 %; Neutrophils # (A) 13.10 10*3/uL (1.80-7.70); Neutrophils % (A) 84.6 %; Platelet Count 296 10*3/uL (140-440); RBC 3.84 10*6/uL (4.10-5.20); RDW 18.7 % (11.5-14.5); WBC 15.49 10*3/uL (4.50-10.00)
[2025-01-18] MEDS: METOPROLOL TARTRATE 25 MG TAB PO SCH (09:44)
[2025-01-18] MEDS: ASPIRIN 81 MG PO SCH (09:45)
[2025-01-18 10:01] LABS: Glucose,Whole Blood 190 mg/dL (70-110)
[2025-01-18 11:07] LABS: Glucose,Whole Blood 143 mg/dL (70-110)
[2025-01-18 12:02] LABS: Glucose,Whole Blood 126 mg/dL (70-110)
--- NOTE | 2025-01-18 12:14 | P.CRDCN ---
History of Present Illness History of present illness: HISTORY OF PRESENT ILLNESS: This is a 69-year-old female with a past medical history significant for congestive heart failure, coronary artery disease with previous PCI of the LAD, hypertension, hyperlipidemia, diabetes, hypothyroidism, atrial flutter, and diabetes. Patient follows in the office with Dr. Elkins. We have been asked to see the patient in consultation for elevated troponins. Patient examined at the bedside in the emergency room. Patient presented to the hospital for chief complaint of nausea and vomiting x 4 days. She states that she got a steroid shot in her back lately and since that time she has been having difficulty managing her blood sugars. The patient is currently on insulin drip and is scheduled to go to the intensive care unit. DIAGNOSTICS: - EKG available at the time of this dictation - Chest xray moderate cardiomegaly and interstitial densities suggesting CHF with pulmonary vascular congestion. Patchy retrocardiac atelectasis and/or consolidation - Laboratory data: WBC 15.49. Hemoglobin 9.7. Platelet count 296. Sodium 141. Potassium 3.5. BUN 24. Creatinine 0.94. Creatinine 2.180. 14.60. 30.9. - Current home cardiac medications include torsemide 40 mg daily, metoprolol tartrate 25 mg twice a day, losartan 25 mg daily, aspirin 81 mg daily, Eliquis 5 mg twice a day - Most recent echocardiogram obtained in November 2024 revealed ejection fraction 20 to 25%, mild pulmonary hypertension, septum akinetic - Cardiac catheterization history: November 2024 revealing 2030% left main, 40 to 50% mid LAD, and 100% proximal RCA with [id number] collaterals. Medical management was recommended. REVIEW OF SYSTEMS: At the time of my exam: CONSTITUTIONAL: Denies fever or chills. HEENT: Denies blurred vision, vision changes, or eye pain. Denies hemoptysis CARDIOVASCULAR: Denies chest pain. Denies orthopnea. Denies PND. Denies palpitations RESPIRATORY: Denies shortness of breath. GASTROINTESTINAL: Denies abdominal pain. + nausea or vomiting. HEMATOLOGIC: Denies bleeding disorders. GENITOURINARY: Denies any blood in urine. SKIN: Denies pruitis. Denies rash. PHYSICAL EXAM: VITAL SIGNS: Reviewed. GENERAL: Well-developed in no acute distress. HEENT: Head is normocephalic. Pupils are equal, round. Sclerae anicteric. Mucous membranes of the mouth are moist. Neck supple. No JVD or thyromegaly LUNGS: Respirations even and unlabored. Lungs essentially clear to auscultation bilaterally. HEART: Regular rate and rhythm. S1 and S2 heard. ABDOMEN: Soft. Nondistended. Nontender. EXTREMITIES: Normal range of motion. No clubbing or cyanosis. Peripheral pulses intact. No lower extremity edema NEUROLOGIC: Awake and alert. Oriented x 3. ASSESSMENT: Nausea and vomiting DKA Non-STEMI Coronary artery disease with previous PCI Hypertension Hyperlipidemia History of diabetes History of hypothyroidism History of atrial flutter History of congestive heart failure with reduced EF PLAN: Obtain 2D echo to assess cardiac structure and function Continue IV heparin. Hold Eliquis Continue aspirin, statin, and metoprolol Patient will require ischemic workup when her acute issues have resolved Further recommendations pending patient course Nurse practitioner note has been reviewed by physician. Signing provider agrees with the documented findings, assessment, and plan of care documented by PERSONAL INJURY SPECIALIST as a scribe. Past Medical History Past Medical History: Atrial Flutter, Coronary Artery Disease (CAD), Diabetes Mellitus, Hypertension, Myocardial Infarction ([place]), Pulmonary Embolus (PE), Skin Disorder, Thyroid Disorder Additional Past Medical History / Comment(s): hypothyroid, kidney stone, glaucoma, hx of PE, was in [facility] recently for rehab due to back issues, recent adm. to [facility] for N/V, states had "heart attack", had cardiac cath. but no new stents, elevated liver enzymes, current wound left heel, is wrapped-will be going to wound center soon Last Myocardial Infarction Date:: 2022 History of Any Multi-Drug Resistant Organisms: None Reported Past Surgical History: Back Surgery, Heart Catheterization, Heart Catheterization With Stent, Hysterectomy Additional Past Surgical History / Comment(s): kidney stones removed and stent CATARACTS REMOVED AND STENT PUT IN FOR GLUCOMA. 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 Patient has difficulty waking up after anesthesia, patient will be very fatigued for about 24H post anesthesia (updated 11/28/2024) Date of Last Stent Placement:: 2021 Past Psychological History: No Psychological Hx Reported Smoking Status: Never smoker - Past Family History Mother Family Medical History: No Reported History Father Additional Family Medical History / Comment(s): Heart history Medications and Allergies Home Medications Medication Instructions Recorded Confirmed Type Levothyroxine Sodium [Synthroid] 112 mcg PO DAILY@59905/16/19 01/18/25 History Famotidine [Pepcid] 20 mg PO BID@899,209904/26/20 01/18/25 History Apixaban [Eliquis] 5 mg PO BID@09,209908/21/24 01/18/25 History Empagliflozin [Jardiance] 25 mg PO DAILY@89908/21/24 01/18/25 History Metoprolol Tartrate [Lopressor] 25 mg PO BID@899,209910/23/24 01/18/25 History Aspirin 81 mg PO DAILY@89911/26/24 01/18/25 History DULoxetine HCL [Cymbalta] 30 mg PO HS@209911/26/24 01/18/25 History INSULIN LISPRO (HumaLOG) [HumaLOG] See Protocol SQ ACHS 11/26/24 01/18/25 History Omeprazole 20 mg PO DAILY@59911/26/24 01/18/25 History Ondansetron [Zofran] 4 mg PO Q6H PRN 11/26/24 01/18/25 History Potassium Chloride ER [K-Dur 20] 20 meq PO DAILY@89911/26/24 01/18/25 History Tamsulosin [Flomax] 0.4 mg PO DAILY@89911/26/24 01/18/25 History Torsemide [Soaanz] 40 mg PO DAILY@59911/26/24 01/18/25 History Losartan [Cozaar] 25 mg PO DAILY tab 12/01/24 01/18/25 Rx Metoclopramide HCl [Reglan] 5 mg PO TID PRN #12 tablet 01/17/25 01/18/25 Rx HYDROcodone/APAP 10-325MG [[place] 1 tab PO Q12H PRN 01/18/25 01/18/25 History 10-325] Insulin Glargine,Hum.rec.anlog 24 units SQ HS@209901/18/25 01/18/25 History [Lantus Mirthaostar Pen] allopurinoL 100 mg PO HS@2100 01/18/25 01/18/25 History Allergies Allergy/AdvReac Type Severity Reaction Status Date / Time No Known Allergies Allergy Verified 01/18/25 09:56 Physical Exam Vitals: Vital Signs Temp Pulse Resp BP Pulse Ox 01/18/25 11:00 89 18 94/52 100 01/18/25 10:00 97.6 F 103 H 18 102/88 96 01/18/25 09:00 104 H 18 127/56 100 01/18/25 08:07 99 01/18/25 08:00 105 H 18 99 01/18/25 07:30 97.7 F 105 H 18 114/61 99 01/18/25 06:00 114 H 24 115/65 100 01/18/25 03:30 117 H 25 H 01/18/25 02:23 120 H 18 90/55 94 L 01/18/25 00:46 125 H 20 115/70 99 01/17/25 18:30 97.9 F 102 H 20 128/97 100 Intake and Output 01/17/25 01/18/25 01/18/25 22:59 06:59 14:59 Intake Total 40.012 52.509 Balance 40.012 52.509 Intake: Intake, IV Titration 40.012 52.509 Amount Insulin Regular 100 unit 40.012 52.509 In Sodium Chloride 0.9% 100 ml @ 0.1 UNITS/KG/HR 9.163 mls/hr IV .Q11H2M [facility] Rx#:[id number] Other: Voiding Method Toilet Weight 90.718 kg Results 01/18/25 07:07 01/18/25 07:07 Cardiac Enzymes 01/17/25 01/17/25 01/18/25 Range/Units 23:09 23:09 03:56 AST 37 H 42 H (14-36) U/L Troponin I 2.180 H* (0.000-0.034) ng/mL 01/18/25 01/18/25 01/18/25 Range/Units 07:07 07:07 10:53 AST 62 H (14-36) U/L Troponin I 14.600 H* 30.900 H* (0.000-0.034) ng/mL Coagulation 01/17/25 Range/Units 23:09 PT 10.7 (10.0-12.5) sec APTT 20.0 L (22.0-30.0) sec CBC 01/17/25 01/18/25 01/18/25 Range/Units 23:09 07:07 07:07 WBC 15.94 H 15.97 H 15.49 H (4.50-10.00) 10*3/uL RBC 4.42 3.82 L 3.84 L (4.10-5.20) 10*6/uL Hgb 11.1 L 9.6 L D 9.7 L (12.0-15.0) g/dL Hct 38.4 32.3 L 32.4 L (37.2-46.3) % Plt Count 321 306 296 (140-440) 10*3/uL Comprehensive Metabolic Panel 01/17/25 01/18/25 01/18/25 Range/Units 23:09 03:56 07:07 Sodium 136 L 141 141 (137-145) mmol/L Potassium 4.6 3.9 3.5 (3.5-5.1) mmol/L Chloride 93 L 98 103 (98-107) mmol/L Carbon Dioxide 7 L* 8 L* 20 L (22-30) mmol/L BUN 22 H 24 H 24 H (7-17) mg/dL Creatinine 0.96 1.04 0.94 (0.52-1.04) mg/dL Glucose 525 H* 413 H 263 H (74-99) mg/dL Calcium 10.2 9.8 9.1 (8.4-10.2) mg/dL AST 37 H 42 H 62 H (14-36) U/L ALT 13 13 14 (4-34) U/L Alkaline Phosphatase 118 99 91 (38-126) U/L Total Protein 7.2 7.1 6.7 (6.3-8.2) g/dL Albumin 4.0 3.9 3.5 (3.5-5.0) g/dL Current Medications Generic Name Dose Route Start Last Admin Trade Name Freq PRN Reason Stop Dose Admin Albuterol/Ipratropium 3 ml 01/18/25 06:45 Ipratropium-Albuterol 3 Ml Neb INHALATION RT-Q4H PRN Shortness Of Breath Or Wheezing Aspirin 81 mg 01/18/25 09:00 01/18/25 09:45 Aspirin 81 Mg PO 81 mg DAILY NATHAN Administration Atorvastatin Calcium 80 mg 01/18/25 21:00 Atorvastatin 80 Mg Tab PO HS NATHAN Dextrose/Water 25 ml 01/18/25 00:17 Dextrose 50% Syringe 50 Ml IVP PER PROTOCOL PRN Hypoglycemia Protocol Dextrose/Water 50 ml 01/18/25 00:17 Dextrose 50% Syringe 50 Ml IVP PER PROTOCOL PRN Hypoglycemia Protocol Duloxetine HCl 30 mg 01/18/25 21:00 Duloxetine Hcl 30 Mg Capsule.Dr BARRETO HS@2100 NATHAN Heparin Sodium (Porcine) 0 unit 01/18/25 06:45 Heparin Sodium 1,000 Un/Ml (10ml Vl) IV PER PROTOCOL PRN Low PTT Protocol Dextrose/Sodium Chloride 1,000 mls @ 75 mls/hr 01/17/25 23:45 01/18/25 02:58 Dextrose 5%-1/2ns Iv Soln IV 75 mls/hr .[id number] NATHAN Administration Insulin Human Regular 100 unit 101 mls @ 9.163 mls/hr 01/18/25 00:30 01/18/25 11:15 / Sodium Chloride IV 0.06 units/kg/hr .Q11H2M NATHAN 5.08 mls/hr Titration Protocol 0.1 UNITS/KG/HR Sodium Chloride 1,000 mls @ 500 mls/hr 01/18/25 00:17 01/18/25 02:22 Saline 0.9% IV 500 mls/hr .Q2H ONE Administration Potassium Chloride/Dextrose/Sod Cl 1,000 mls @ 150 mls/hr 01/18/25 00:30 01/18/25 06:06 D5%-1/2ns-Kcl 20 Meq/L Iv Solution IV 150 mls/hr .Q6H40M NATHAN Administration Heparin Sodium/Sodium Chloride 250 mls @ 9.997 mls/hr 01/18/25 06:45 01/18/25 07:24 25,000 unit/ Sodium Chloride IV 11.02 units/kg/hr .Q24H NATHAN 9.997 mls/hr Administration Protocol 11.02 UNITS/KG/HR Levothyroxine Sodium 112 mcg 01/19/25 06:00 Levothyroxine 112 Mcg Tab PO DAILY@0600 NATHAN Lorazepam 0.5 mg 01/17/25 23:32 Lorazepam 1 Mg/0.5 Ml Vial IV Q6HR PRN Anxiety Metoprolol Tartrate 25 mg 01/18/25 09:00 01/18/25 09:44 Metoprolol Tartrate 25 Mg Tab PO 25 mg BID NATHAN Administration Miscellaneous Information 1 each 01/18/25 00:17 Magnesium Replacement Protocol 1 Each Misc MISCELLANE DAILY PRN Per Protocol Protocol Miscellaneous Information 1 each 01/18/25 00:17 Potassium Replacement Protocol 1 Each Misc MISCELLANE DAILY PRN Per Protocol Morphine Sulfate 4 mg 01/17/25 23:32 Morphine Sulfate 4 Mg/Ml Syringe IV Q4HR PRN Severe Pain (Scale 7 to 10) Naloxone HCl 0.2 mg 01/18/25 06:45 Naloxone 0.4 Mg/Ml 1 Ml Vial IV Q2M PRN Opioid Reversal Ondansetron HCl 4 mg 01/17/25 23:32 Ondansetron 4 Mg/2 Ml Vial IVP Q8HR PRN Nausea And Vomiting Pantoprazole Sodium 40 mg 01/17/25 23:45 01/18/25 09:45 Pantoprazole 40 Mg/10 Ml Vial IV 40 mg DAILY NATHAN Administration Intake and Output 01/17/25 01/18/25 01/18/25 22:59 06:59 14:59 Intake Total 40.012 52.509 Balance 40.012 52.509 Intake: Intake, IV Titration 40.012 52.509 Amount Insulin Regular 100 unit 40.012 52.509 In Sodium Chloride 0.9% 100 ml @ 0.1 UNITS/KG/HR 9.163 mls/hr IV .Q11H2M [facility] Rx#:[id number] Other: Voiding Method Toilet Weight 90.718 kg 01/18/25 07:07 01/18/25 07:07
[2025-01-18 13:59] LABS: African American GFR (CKD) 68 (>60 ml/min/1.73 sqM); Anion Gap 1 mmol/L; Blood Urea Nitrogen 25 mg/dL (7-17); Calcium 8.8 mg/dL (8.4-10.2); Carbon Dioxide 34 mmol/L (22-30); Chloride 103 mmol/L (98-107); Glucose 176 mg/dL (74-99); Non-African American GFR(CKD) 59 (>60 ml/min/1.73 sqM); Potassium 3.7 mmol/L (3.5-5.1); Sodium 138 mmol/L (137-145)
[2025-01-18 14:06] LABS: Glucose,Whole Blood 171 mg/dL (70-110)
[2025-01-18 14:32] LABS: Bacteria,Urine Rare /hpf; Bilirubin,Urine 1+ (Negative); Blood,Urine Negative (Negative); Budding Yeast,Urine Many /hpf; Color,Urine Light Yellow; Glucose,Urine (UA) 4+ (Negative); Ketones,Urine 1+ (Negative); Leukocyte Esterase,Urine Trace (Negative); Nitrite,Urine Negative (Negative); PH, Urine 5.5 (5.0-8.0); Protein,Urine Negative (Negative); RBC,Urine 64 /hpf (0-5); Squamous Epithelial Cell,Urine 6 /hpf (0-4); Urobilinogen,Urine 2.0 mg/dL (<2.0); WBC,Urine 4 /hpf (0-5)
[2025-01-18 14:36] LABS: Glucose,Whole Blood 214 mg/dL (70-110)
[2025-01-18 14:42] LABS: Specific Gravity,Urine 1.050 (1.001-1.035)
[2025-01-18 15:18] LABS: Glucose,Whole Blood 188 mg/dL (70-110)
[2025-01-18 16:06] LABS: Glucose,Whole Blood 221 mg/dL (70-110)
[2025-01-18 17:05] LABS: Glucose,Whole Blood 242 mg/dL (70-110)
[2025-01-18 18:56] LABS: Magnesium 1.6 mg/dL (1.6-2.3)
--- NOTE | 2025-01-18 20:01 | P.CNPUL ---
History of Present Illness Consult date: 01/18/25 History of present illness: This is a 69-year-old female patient being seen in the emergency department and the patient is going to be transferred to the ICU. The patient is known to have coronary artery disease and the patient has undergone recent cardiac catheterization in November 2024 revealing a 20 to 30% left main, 40 to 50% mid LAD, 100% proximal RCA with [id number] collaterals. Medical management was recommended. The patient also has cardiomyopathy with impaired LV function with an ejection fraction of 20 to 25% based on echocardiogram from November 2024. The patient was having persistent nausea and emesis on outpatient basis. She was unable to tolerate any form of oral intake and she quit taking her insulin the patient is diabetic. She used to be on insulin pump in the past and the patient is currently on Lantus insulin. Denies having any significant abdominal pain. She had been having emesis and nausea for the past 4 days at least. Based on that, the patient was came into the hospital and in the emergency department, the patient was found to have anion gap metabolic acidosis consistent with DKA. The patient had a serum bicarb of 7 with a gap of 36 and a blood sugar of 525. Normal renal function. Initial lactic acid level was at 4.5, troponin peaked at 38,000 consistent with acute non-ST segment elevation myocardial infarction. EKG from emergency department showed sinus rhythm with frequent ectopies, PVCs and interventricular conduction delay and right axis deviation. Accordingly, the patient was started on IV fluids. The patient was given a total of 2.5 L of normal saline and started on DKA protocol. The patient is currently on insulin drip for blood sugar control. Subsequent electrolytes showed improvement in the serum bicarb came up to 34 with a gap of 1 and the blood sugar is currently at 176. Lactic acid level dropped down to 3.2. The patient is awake and alert and communicating. Free of any chest pain. No ongoing nausea or emesis. She is also on IV heparin and cardiology consultation has been obtained. She remains on aspirin. She remains on metoprolol 25 mg p.o. twice daily. IV fluids has been switched to D5 half-normal saline which is currently running at a rate of 50 cc an hour. In terms of respiratory status, the patient is stable on 2 L of oxygen by nasal cannula with a pulse ox of 99%. CAT scan of the abdomen and pelvis showed normal appendix, normal bowel pattern, colonic diverticulosis and moderate degree of hiatal hernia. Chest x-ray showed moderate cardiomegaly with mild pulm vascular congestion and some atelectatic changes in the left lung base. Comorbidities include diabetes mellitus type 2, coronary artery disease, hypertension, hyperlipidemia, hypothyroidism, history of a flutter and CHF with impaired LV function. Review of Systems Constitutional: Reports fatigue Eyes: denies as per HPI, denies blurred vision, denies bulging eye, denies decreased vision, denies diplopia, denies discharge, denies dry eye, denies irritation, denies itching, denies pain, denies photophobia, denies loss of peripheral vision, denies loss of vision, denies tunnel vision/blind spots Ears: deny: decreased hearing, ear discharge, earache, tinnitus Breasts: absent: as per HPI, change in shape, gynecomastia, masses, nipple discharge, pain, skin changes, swelling Cardiovascular: Reports as per HPI (Rowdyarie leann who is taking care of) Respiratory: Reports as per HPI Gastrointestinal: Reports nausea, Reports vomiting Genitourinary: Reports as per HPI Menstruation: Reports as per HPI Musculoskeletal: Reports as per HPI Musculoskeletal: absent: ankle pain, ankle stiffness, ankle swelling, as per HPI, elbow pain, elbow stiffness, elbow swelling, foot pain, foot stiffness, foot swelling, hand pain, hand stiffness, hand swelling, hip pain, hip stiffness, hip swelling, knee pain, knee stiffness, knee swelling, shoulder pain, shoulder stiffness, shoulder swelling, wrist pain, wrist stiffness, wrist swelling Integumentary: Reports as per HPI Neurological: Reports as per HPI Psychiatric: Reports as per HPI Endocrine: Reports fatigue, Reports high blood sugars, Reports polyuria Hematologic/Lymphatic: Reports as per HPI Allergic/Immunologic: Reports as per HPI Past Medical History Past Medical History: Atrial Flutter, Coronary Artery Disease (CAD), Diabetes Mellitus, Hypertension, Myocardial Infarction ([place]), Pulmonary Embolus (PE), Skin Disorder, Thyroid Disorder Additional Past Medical History / Comment(s): hypothyroid, kidney stone, glaucoma, hx of PE, was in [facility] recently for rehab due to back issues, recent adm. to [facility] for N/V, states had "heart attack", had cardiac cath. but no new stents, elevated liver enzymes, current wound left heel, is wrapped-will be going to wound center soon Last Myocardial Infarction Date:: 2022 History of Any Multi-Drug Resistant Organisms: None Reported Past Surgical History: Back Surgery, Heart Catheterization, Heart Catheterization With Stent, Hysterectomy Additional Past Surgical History / Comment(s): kidney stones removed and stent CATARACTS REMOVED AND STENT PUT IN FOR GLUCOMA. 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 Patient has difficulty waking up after anesthesia, patient will be very fatigued for about 24H post anesthesia (updated 11/28/2024) Date of Last Stent Placement:: 2021 Past Psychological History: No Psychological Hx Reported Smoking Status: Never smoker - Past Family History Mother Family Medical History: No Reported History Father Additional Family Medical History / Comment(s): Heart history Medications and Allergies Home Medications Medication Instructions Recorded Confirmed Type Levothyroxine Sodium [Synthroid] 112 mcg PO DAILY@0605/16/19 01/18/25 History Famotidine [Pepcid] 20 mg PO BID@09,209904/26/20 01/18/25 History Apixaban [Eliquis] 5 mg PO BID@09,209908/21/24 01/18/25 History Empagliflozin [Jardiance] 25 mg PO DAILY@89908/21/24 01/18/25 History Metoprolol Tartrate [Lopressor] 25 mg PO BID@09,209910/23/24 01/18/25 History Aspirin 81 mg PO DAILY@89911/26/24 01/18/25 History DULoxetine HCL [Cymbalta] 30 mg PO HS@209911/26/24 01/18/25 History INSULIN LISPRO (HumaLOG) [HumaLOG] See Protocol SQ ACHS 11/26/24 01/18/25 History Omeprazole 20 mg PO DAILY@59911/26/24 01/18/25 History Ondansetron [Zofran] 4 mg PO Q6H PRN 11/26/24 01/18/25 History Potassium Chloride ER [K-Dur 20] 20 meq PO DAILY@0900 11/26/24 06/24/25 History Tamsulosin [Flomax] 0.4 mg PO DAILY@89911/26/24 01/18/25 History Torsemide [Soaanz] 40 mg PO DAILY@59911/26/24 01/18/25 History Losartan [Cozaar] 25 mg PO DAILY tab 12/01/24 01/18/25 Rx Metoclopramide HCl [Reglan] 5 mg PO TID PRN #12 tablet 01/17/25 01/18/25 Rx HYDROcodone/APAP 10-325MG [Chidester 1 tab PO Q12H PRN 01/18/25 01/18/25 History 10-325] Insulin Glargine,Hum.rec.anlog 24 units SQ HS@209901/18/25 01/18/25 History [Lantus Solostar Pen] allopurinoL 100 mg PO HS@209901/18/25 01/18/25 History Allergies Allergy/AdvReac Type Severity Reaction Status Date / Time No Known Allergies Allergy Verified 01/18/25 09:56 Physical Exam Vitals: Vital Signs Temp Pulse Resp BP Pulse Ox 01/18/25 10:00 97.6 F 103 H 18 102/88 96 01/18/25 09:00 104 H 18 127/56 100 01/18/25 08:07 99 01/18/25 08:00 105 H 18 99 01/18/25 07:30 97.7 F 105 H 18 114/61 99 01/18/25 06:00 114 H 24 115/65 100 01/18/25 03:30 117 H 25 H 01/18/25 02:23 120 H 18 90/55 94 L 01/18/25 00:46 125 H 20 115/70 99 01/17/25 18:30 97.9 F 102 H 20 128/97 100 Intake and Output 01/17/25 01/18/25 01/18/25 22:59 06:59 14:59 Intake Total 40.012 41.668 Balance 40.012 41.668 Intake: Intake, IV Titration 40.012 41.668 Amount Insulin Regular 100 unit 40.012 41.668 In Sodium Chloride 0.9% 100 ml @ 0.1 UNITS/KG/HR 9.163 mls/hr IV .Q11H2M [facility] Rx#:[id number] Other: Voiding Method Toilet Weight 90.718 kg The patient appeared well nourished and normally developed. Vital signs as documented. She is comfortable on 2 Liters/min, obese with a BMI of 38 Head exam is unremarkable. No scleral icterus or corneal arcus noted. Neck is without jugular venous distension, thyromegaly, or carotid bruits. Carotid upstrokes are brisk bilaterally. Lungs are clear to auscultation and percussion. Cardiac exam reveals the PMI to be normally sized and situated. Rhythm is regular. First and second heart sounds normal. No murmurs, rubs or gallops. Abdominal exam reveals normal bowel sounds, no masses, no organomegaly and no aortic enlargement. Extremities are nonedematous and both femoral and pedal pulses are normal. Examination of the skin revealed no evidence of significant rashes, suspicious appearing nevi or other concerning lesions. Neurologically, the patient is awake and alert and the patient does not have any focal neurological deficit. Cranial nerves are essentially intact. Results - Laboratory Findings CBC and BMP: 01/18/25 07:07 01/18/25 13:19 PT/INR, D-dimer PT 10.7 sec (10.0-12.5) 01/17/25 23:09 INR 1.0 (<1.2) 01/17/25 23:09 Abnormal lab findings: Abnormal Labs 01/17/25 01/17/25 01/17/25 23:09 23:09 23:09 WBC 15.94 H RBC Hgb 11.1 L Hct MCH 25.1 L MCHC 28.9 L Immature Gran # 0.08 H Neutrophils # 14.77 H Lymphocytes # 0.47 L Monocytes # Eosinophils # 0.00 L APTT 20.0 L VBG pH VBG pCO2 VBG HCO3 Sodium 136 L Chloride 93 L Carbon Dioxide 7 L* BUN 22 H Glucose 525 H* POC Glucose (mg/dL) Plasma Lactic Acid Kilo Phosphorus 5.6 H AST 37 H Troponin I 01/17/25 01/17/25 01/18/25 23:09 23:09 00:31 WBC RBC Hgb Hct MCH MCHC Immature Gran # Neutrophils # Lymphocytes # Monocytes # Eosinophils # APTT VBG pH VBG pCO2 VBG HCO3 Sodium Chloride Carbon Dioxide BUN Glucose POC Glucose (mg/dL) 457 H Plasma Lactic Acid Kilo 4.5 H* Phosphorus AST Troponin I 2.180 H* 01/18/25 01/18/25 01/18/25 01:35 02:41 03:56 WBC RBC Hgb Hct MCH MCHC Immature Gran # Neutrophils # Lymphocytes # Monocytes # Eosinophils # APTT VBG pH VBG pCO2 VBG HCO3 Sodium Chloride Carbon Dioxide 8 L* BUN 24 H Glucose 413 H POC Glucose (mg/dL) 512 H* 524 H* Plasma Lactic Acid Kilo Phosphorus AST 42 H Troponin I 01/18/25 01/18/25 01/18/25 03:56 03:56 03:59 WBC RBC Hgb Hct MCH MCHC Immature Gran # Neutrophils # Lymphocytes # Monocytes # Eosinophils # APTT VBG pH 7.22 L VBG pCO2 23 L VBG HCO3 10 L Sodium Chloride Carbon Dioxide BUN Glucose POC Glucose (mg/dL) 393 H Plasma Lactic Acid Kilo 5.3 H* Phosphorus AST Troponin I 01/18/25 01/18/25 01/18/25 05:08 05:52 07:07 WBC 15.97 H RBC 3.82 L Hgb 9.6 L D Hct 32.3 L MCH 25.1 L MCHC 29.7 L Immature Gran # 0.09 H Neutrophils # 13.47 H Lymphocytes # Monocytes # 1.46 H Eosinophils # 0.00 L APTT VBG pH VBG pCO2 VBG HCO3 Sodium Chloride Carbon Dioxide BUN Glucose POC Glucose (mg/dL) 304 H 268 H Plasma Lactic Acid Kilo Phosphorus AST Troponin I 01/18/25 01/18/25 01/18/25 07:07 07:07 07:07 WBC RBC Hgb Hct MCH MCHC Immature Gran # Neutrophils # Lymphocytes # Monocytes # Eosinophils # APTT VBG pH VBG pCO2 VBG HCO3 Sodium Chloride Carbon Dioxide 20 L BUN 24 H Glucose 263 H POC Glucose (mg/dL) Plasma Lactic Acid Kilo Phosphorus 2.3 L AST 62 H Troponin I 14.600 H* 01/18/25 01/18/25 01/18/25 07:07 07:23 08:20 WBC 15.49 H RBC 3.84 L Hgb 9.7 L Hct 32.4 L MCH 25.3 L MCHC 29.9 L Immature Gran # 0.09 H Neutrophils # 13.10 H Lymphocytes # Monocytes # 1.37 H Eosinophils # 0.00 L APTT VBG pH VBG pCO2 VBG HCO3 Sodium Chloride Carbon Dioxide BUN Glucose POC Glucose (mg/dL) 224 H 231 H Plasma Lactic Acid Kilo Phosphorus AST Troponin I 01/18/25 01/18/25 01/18/25 09:02 09:14 09:59 WBC RBC Hgb Hct MCH MCHC Immature Gran # Neutrophils # Lymphocytes # Monocytes # Eosinophils # APTT VBG pH VBG pCO2 VBG HCO3 Sodium Chloride Carbon Dioxide BUN Glucose POC Glucose (mg/dL) 190 H 190 H Plasma Lactic Acid Kilo 3.3 H* Phosphorus AST Troponin I - Diagnostic Findings Chest x-ray: image reviewed Assessment and Plan Plan: Acute NSTEMI Acute DKA with anion gap metabolic acidosis and hyperglycemia, resuscitated with IV fluids and insulin drip with subsequent closure of the anion gap. Coronary artery disease with recent cardiac catheterization in November 2024, 20 to 30% left main disease, 40 to 50% mid LAD disease and 100% proximal RCA. The patient also had collaterals from left to right and the patient was offered medical management Systolic heart failure, likely ischemic with an EF of around 20 to 25%, based on echo from November 2024 and EF of around 10 to 15%. An echo in July 2024 Persistent nausea and emesis, could be related to myocardial ischemia. CAT scan of the abdomen is negative and the patient has a large hiatal hernia. Currently on Zofran Diabetes mellitus type 2 maintained on Lantus insulin 24 units daily in addition to sliding scale coverage Lactic acidosis, improving Hypertension Hypothyroidism maintained on Synthroid History of atrial flutter, current cardiac rhythm is sinus with a intraventricul ar conduction delay and right axis deviation. The patient is maintained on a combination of metoprolol and Eliquis on outpatient basis Chronic hypoxic respiratory failure maintained on O2 at 2 L/min nasal cannula Spondylosis of the lumbar spine Obesity with a BMI of 38.8 Hyperlipidemia Plan Admit the patient to the ICU Continue aspirin and hold anticoagulation with Eliquis and start the patient IV heparin Repeat echocardiogram Reconsult cardiology the patient may benefit from another cardiac catheterization as the patient sustained another acute NSTEMI Continue metoprolol 25 mg p.o. twice a day High-dose statins 80 mg Lipitor on a daily basis Management of CHF per cardiology. Management of DKA. Anion gap is closed and the patient can be transition to long-acting insulin Hourly monitoring of blood sugars Zofran for nausea Condition is critical and the patient will be maintained in the intensive care unit. Will continue to follow. Time with Patient: Greater than 30
[2025-01-18 20:29] LABS: Glucose,Whole Blood 291 mg/dL (70-110)
[2025-01-18] MEDS: INSULIN LISPRO (HumaLOG) 100 UNIT/ML 10 mL VL SQ SCH (20:31)
[2025-01-18] MEDS: INSULIN GLARGINE (LANTUS) 100 UNIT/ML SYR SQ SCH (20:32)
[2025-01-18] MEDS: ATORVASTATIN 80 MG TAB PO SCH (20:32)
[2025-01-18 22:03] LABS: African American GFR (CKD) 67 (>60 ml/min/1.73 sqM); Anion Gap 11 mmol/L; Blood Urea Nitrogen 25 mg/dL (7-17); Calcium 9.0 mg/dL (8.4-10.2); Carbon Dioxide 19 mmol/L (22-30); Chloride 102 mmol/L (98-107); Glucose 298 mg/dL (74-99); Non-African American GFR(CKD) 58 (>60 ml/min/1.73 sqM); Sodium 132 mmol/L (137-145)
[2025-01-18 22:09] LABS: Potassium 4.8 mmol/L (3.5-5.1)
[2025-01-19] MEDS: ONDANSETRON 4 MG/2 ML VIAL IVP PRN (03:22)
[2025-01-19 06:41] LABS: Glucose,Whole Blood 398 mg/dL (70-110)
[2025-01-19] MEDS: LEVOTHYROXINE 112 MCG TAB PO SCH (06:47)
[2025-01-19 07:15] LABS: Basophils # (A) 0.03 10*3/uL (0.00-0.10); Basophils % (A) 0.2 %; Eosinophils # (A) 0.00 10*3/uL (0.04-0.35); Eosinophils % (A) 0.0 %; HCT 32.6 % (37.2-46.3); HGB 9.8 g/dL (12.0-15.0); Lymphocytes # (A) 1.54 10*3/uL (0.90-5.00); Lymphocytes % (A) 10.9 %; MCH 25.3 pg (27.0-32.0); MCHC 30.1 g/dL (32.0-37.0); MCV 84.2 fL (80.0-97.0); Monocytes # (A) 1.10 10*3/uL (0.20-1.00); Monocytes % (A) 7.8 %; Neutrophils # (A) 11.41 10*3/uL (1.80-7.70); Neutrophils % (A) 80.6 %; Platelet Count 241 10*3/uL (140-440); RBC 3.87 10*6/uL (4.10-5.20); RDW 19.4 % (11.5-14.5); WBC 14.15 10*3/uL (4.50-10.00)
[2025-01-19 07:35] LABS: ALT 13 U/L (4-34); AST 107 U/L (14-36); African American GFR (CKD) 73 (>60 ml/min/1.73 sqM); Albumin 3.1 g/dL (3.5-5.0); Alkaline Phosphatase 94 U/L (38-126); Anion Gap 7 mmol/L; Blood Urea Nitrogen 26 mg/dL (7-17); Calcium 8.9 mg/dL (8.4-10.2); Carbon Dioxide 20 mmol/L (22-30); Chloride 104 mmol/L (98-107); Glucose 393 mg/dL (74-99); Magnesium 1.7 mg/dL (1.6-2.3); Non-African American GFR(CKD) 64 (>60 ml/min/1.73 sqM); Potassium 4.8 mmol/L (3.5-5.1); Sodium 131 mmol/L (137-145); Total Protein 6.2 g/dL (6.3-8.2)
--- NOTE | 2025-01-19 08:15 | XR ---
EXAMINATION TYPE: XR chest 1V DATE OF EXAM: 01/19/2025 COMPARISON: 01/18/2025 CLINICAL INDICATION: Female, 69 years old with history of sob; TECHNIQUE: Single frontal view of the chest is obtained. FINDINGS: Heart mildly enlarged. Mild interstitial densities persist. Left basilar underpenetrated and not well assessed. IMPRESSION: Cardiomegaly and ongoing mild pulmonary vascular congestion. [facility], Workstation: [facility], 01/19/2025 8:12 AM
--- NOTE | 2025-01-19 08:33 | P.HPIM ---
History of Present Illness H&P Date: 01/18/25 Chief Complaint: Diabetic ketoacidosis/lactic acidosis/non-STEMI HISTORY OF PRESENT ILLNESS: This is a 69-year-old female with a previous medical history significant for hypertension and hypertensive cardiovascular disease, hyperlipidemia, hypothyroidism, chronic gastroesophageal reflux disease with esophagitis, type 1 diabetes mellitus currently on insulin pump, vitamin D deficiency, diabetic neuropathy, patient also had history of spondylosis of the lumbar spine status post lumbar laminectomy back in 07/01/2022 followed by a wound dehiscence at the [facility] of the lumbar area and she ended up going back for another surgical intervention 2022 followed by a wound care of the surgical site, patient recovered very well from that, patient apparently was recently hospitalized at [facility] for urine from August 21, 2024 till August 27, 2024 after she was admitted for what appears to be an unstable patient myocardial infarction status post left heart catheterization that showed evidence of 20 to 30% stenosis of the left main artery, 40 to 50% stenosis of the LAD where she had a previous stent, and 99% of the RCA with collaterals from left to right, no intervention was done, patient also did have acute blood loss anemia status post 1 unit of packed red blood cells procedure was seen in consultation by general surgery who is recommended not to do any intervention at this point in time, patient was last hospitalized on November 27, 2024 after she was admitted for non-ST elevation myocardial infarction and ischemic cardiomyopathy with ejection fraction of 10 to 15%, at that time she was sent back to endocrinology, patient was discharged recently, under the having an epidural injection. By the pain clinic on the 10th of this month, apparently she continues to yesterday with intractable nausea and vomiting not able to keep anything down, she was not in diabetic status at that time, she was given IV fluid resuscitation, she was given some insulin, she was sent home as outpatient, patient became a lot worse, she was started intractable nausea and vomiting and she was not keeping anything down, she became quite weak in general fatigue and she was brought to the ER again and she was found to be diabeticwith a bicarb level of 8 she was also found to have a lactic acidosis of 5, she was given IV fluid resuscitation, she was found to have a troponin level of 2 she was admitted to the hospital intensive care unit with a diagnosis of diabetic acidosis and lactic acidosis with non-ST elevation myocardial function, with cardiology consultation as well as pulmonary consultation was obtained. REVIEW OF SYSTEMS: Constitutional: No documented fever, no chills, no night sweats. significant weight gain No weakness, fatigue or lethargy. No daytime sleepiness. HEENT: No headache. No blurred vision or double vision, no loss of vision. No loss of Hearing, no ringing in the ears, no dizziness. No nasal drainage or congestion. No epistaxis. No sore throat. Lungs: positive for shortness of breath, occasional cough, no sputum production. No wheezing. Reports dyspnea with activity, positive for orthopneam and PND Cardiovascular: No chest pain, positive for mild lower extremity edema. positive for palpitations. no paroxysmal nocturnal dyspnea. no orthopnea. No lightheadedness or dizziness. No syncopal episodes. Abdominal: Reports no abdominal pain. positive for nausea, and vomiting. No diarrhea. No constipation. No bloody or tarry stools reports loss of appetite. Genitourinary: No dysuria, increased frequency, urgency. No urinary retention. Musculoskeletal: No myalgias. positive for muscle weakness, positive for gait dysfunction, no frequent falls. positive for back pain. No neck pain. Integumentary: No wounds, no lesions. No rash or pruritus. Positive for bruising to bilateral lower extremities. No change in hair or nails. Neurologic: No aphasia. No facial droop. No change in mentation. No head injury. No headache. Right lower extremity weakness, positive for paresthesia. Psychiatric: Positive depression. No anxiety. No mood swings. Endocrine: No abnormal blood sugars. No weight change. PAST MEDICAL HISTORY: Hypertension and hypertensive cardiovascular disease. Hyperlipidemia. Diabetes mellitus type 1. GERD with esophagitis Hiatal hernia. Vitamin D deficiency. Obesity with possible obstructive sleep apnea and obesity hypoventilation syndrome Chronic hypoxemic respiratory failure requiring 3 L cannula Spondylosis of the lumbar spine status post laminectomy on 07/01/2022 followed by wound dehiscence with revision on July at the lumbar area at the [facility] Kidney stones Hypothyroidism. PAST SURGICAL HISTORY: Total abdominal hysterectomy and bilateral sopping oophorectomy due to dysfunctional uterine bleeding. Cataract surgery 2. Colonoscopy 2014. Left arthroscopic knee surgery. Right 4 toes amputation due to lawnmower accident. Kidney stone surgery with J stent placement and removal. Lumbar laminectomy 07/01/2022. Wound dehiscence with revision of the lumbar area generally fourth [address] [facility] SOCIAL HISTORY: Patient is a lifelong nonsmoker, she denies any alcohol ingestion, no drug use or abuse. She lives with her uses a walker for ambulation. FAMILY HISTORY: Father at age of 70 from CHF and [place] mother is 90-year-old, patient has one sister 66-year-old alive was sister is 66 with GERD, patient had one son 48-year-old okay and second son live 24 hours, patient had one daughter who live 24 hours, and patient has one adopted child both children are healthy. PHYSICAL EXAMINATION: General: this is a 69-year-old female laying down in bed in minimal distress HEENT: Head is atraumatic, normocephalic, pupils were equal round reactive to light and recommendation, extraocular muscle movement were intact, sclera nonicteric, conjunctivae were pale, mucous membranes of the mouth are somewhat dry. Neck: Supple, no JVP, normal carotid upstroke bilaterally, no lymphadenopathy. Chest: Decreased breath sounds at the bases, few rhonchi, no expiratory wheezes, no chest wall tenderness, no intercostal retractions Heart: First heart sound is normal, second heart sound is normal there is systolic ejection murmur 2/6 located in the left sternal border Abdomen: Soft, nontender, nondistended, positive bowel sounds. Extremities: There is +1 edema no calf tenderness DP +2 bilaterally, there is 4 toes amputation on the right side Neurologic examination: Patient is awake alert and oriented X 3, cranial nerves II-12 appear grossly intact, muscle power were 5 out of 5 in upper extremities, 1/5 in the right lower extremity, and 2 out of 5 in the left lower extremity ASSESSMENT AND PLAN: 1. Acute anion gap metabolic acidosis due to diabetic ketoacidosis as well as lactic acidosis status post IV fluid resuscitation currently on insulin drip, continue with that she is currently on 10 units/h, because of the ICU, continued resuscitation generally because of ejection fraction 50%, continue to follow-up with the patient very closely, continue to monitor CMP magnesium and phosphorus, continue ICU care, continue antibiotics, Zofran 4 mg every 6 hours as needed 2. Acute non-ST elevation [place] in a patient with prior history coronary artery disease status post PCI of the LAD with recent left heart catheterization that was done July 2024 that showed evidence of left main disease 20 to 30%, LAD 4050% stenosis where the stent is and RCA 99% stenosis with collaterals from left to right. Continue patient on metoprolol 25 mg orally twice every day, aspirin 81 mg once every day, also continue patient on atorvastatin 40 mg orally once every day, keep LDL 55-70 continue heparin drip. Cardiology consultation 3. History of pulmonary embolism. Continue with heparin drip for now. 4. Paroxysmal atrial fibrillation/flutter. Continue patient on metoprolol 25 mg orally twice every day, continue heparin drip for now, 5. Hypertension and hypertensive cardiovascular disease. Continue patient on metoprolol 25 mg orally twice every day, losartan 100 mg orally once every day, monitor the patient blood pressure very closely. 6. Hyperlipidemia. continue atorvastatin 40 mg orally once every day, monitor the patient the benefit, keep LDL 55-70. 7. Hypothyroidism. Continue patient on Synthroid 112 g orally once every day monitor TSH and free T4. 8. Diabetes mellitus type 1. currently on insulin drip. 9. GERD with esophagitis and had a hernia. Continue patient on Protonix 40 mg once every day. 10. Obesity with obstructive sleep apnea and possible obesity hypoventilation syndrome patient will need to have a sleep study as an outpatient. 11. Vitamin D deficiency. Continue vitamin D3 2000 units once every day. 12. History of kidney stones. stable at this time 13. DVT prophylaxis. Continue heparin drip for now. 14. GI prophylaxis. Continue Protonix 40 mg orally once every day 15. Admitted to inpatient. Estimate a length of stay 2 midnights. 16. Full code Past Medical History Past Medical History: Atrial Flutter, Coronary Artery Disease (CAD), Diabetes Mellitus, Hypertension, Myocardial Infarction ([place]), Pulmonary Embolus (PE), Skin Disorder, Thyroid Disorder Additional Past Medical History / Comment(s): hypothyroid, kidney stone, jennifer ma, hx of PE, was in [facility] recently for rehab due to back issues, recent adm. to [facility] for N/V, states had "heart attack", had cardiac cath. but no new stents, elevated liver enzymes, current wound left heel, is wrapped-will be going to wound center soon Last Myocardial Infarction Date:: 2022 History of Any Multi-Drug Resistant Organisms: None Reported Past Surgical History: Back Surgery, Heart Catheterization, Heart Cath eterization With Stent, Hysterectomy Additional Past Surgical History / Comment(s): kidney stones removed and stent CATARACTS REMOVED AND STENT PUT IN FOR GLUCOMA. 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 Patient has difficulty waking up after anesthesia, patient will be very fatigued for about 24H post anesthesia (updated 11/28/2024) Date of Last Stent Placement:: 2021 Past Psychological History: No Psychological Hx Reported Smoking Status: Never smoker - Past Family History Mother Family Medical History: No Reported History Father Additional Family Medical History / Comment(s): Heart history Medications and Allergies Home Medications Medication Instructions Recorded Confirmed Type Levothyroxine Sodium [Synthroid] 112 mcg PO DAILY@0605/16/19 01/07/25 History Famotidine [Pepcid] 20 mg PO BID@09,209904/26/20 01/07/25 History Apixaban [Eliquis] 5 mg PO BID@0900,209908/21/24 01/05/25 History Empagliflozin [Jardiance] 25 mg PO DAILY@89908/21/24 01/07/25 History Metoprolol Tartrate [Lopressor] 25 mg PO BID@0900,209910/23/24 01/07/25 History Aspirin 81 mg PO DAILY@00 11/26/24 01/05/25 History DULoxetine HCL [Cymbalta] 30 mg PO HS@209911/26/24 01/07/25 History INSULIN LISPRO (HumaLOG) [HumaLOG] See Protocol SQ ACHS 11/26/24 01/05/25 History Insulin Glargine (Lantus) [Lantus 24 unit SQ HS@209911/26/24 01/07/25 History Vial] Omeprazole 20 mg PO DAILY@59911/26/24 01/07/25 History Ondansetron [Zofran] 4 mg PO Q6H PRN 11/26/24 01/07/25 History Potassium Chloride ER [K-Dur 20] 20 meq PO DAILY@89911/26/24 01/07/25 History Tamsulosin [Flomax] 0.4 mg PO DAILY@89911/26/24 01/07/25 History Torsemide [Soaanz] 40 mg PO DAILY@59911/26/24 01/07/25 History HYDROcodone/APAP 10-325MG [Cambria 1 tab PO Q4H PRN #18 tab 12/01/24 01/07/25 Rx 10-325] Losartan [Cozaar] 25 mg PO DAILY tab 12/01/24 01/07/25 Rx Metoclopramide HCl [Reglan] 5 mg PO TID PRN #12 tablet 01/17/25 Rx Allergies Allergy/AdvReac Type Severity Reaction Status Date / Time No Known Allergies Allergy Verified 01/17/25 18:33 Physical Exam Vitals: Vital Signs Temp Pulse Resp BP Pulse Ox 01/18/25 09:00 104 H 18 127/56 100 01/18/25 08:07 99 01/18/25 08:00 105 H 18 99 01/18/25 07:30 97.7 F 105 H 18 114/61 99 01/18/25 06:00 114 H 24 115/65 100 01/18/25 03:30 117 H 25 H 01/18/25 02:23 120 H 18 90/55 94 L 01/18/25 00:46 125 H 20 115/70 99 01/17/25 18:30 97.9 F 102 H 20 128/97 100 Intake and Output 01/17/25 01/18/25 01/18/25 22:59 06:59 14:59 Intake Total 40.012 Balance 40.012 Intake: Intake, IV Titration 40.012 Amount Insulin Regular 100 unit 40.012 In Sodium Chloride 0.9% 100 ml @ 0.1 UNITS/KG/HR 9.163 mls/hr IV .Q11H2M [facility] Rx#:[id number] Other: Voiding Method Toilet Weight 90.718 kg Results CBC & Chem 7: 01/18/25 07:07 01/18/25 07:07 Labs: Abnormal Lab Results - Last 24 Hours (Table) 01/17/25 01/17/25 01/17/25 Range/Units 23:09 23:09 23:09 WBC 15.94 H (4.50-10.00) 10*3/uL RBC (4.10-5.20) 10*6/uL Hgb 11.1 L (12.0-15.0) g/dL Hct (37.2-46.3) % MCH 25.1 L (27.0-32.0) pg MCHC 28.9 L (32.0-37.0) g/dL Immature Gran # 0.08 H (0.00-0.04) 10*3/uL Neutrophils # 14.77 H (1.80-7.70) 10*3/uL Lymphocytes # 0.47 L (0.90-5.00) 10*3/uL Monocytes # (0.20-1.00) 10*3/uL Eosinophils # 0.00 L (0.04-0.35) 10*3/uL APTT 20.0 L (22.0-30.0) sec VBG pH (7.31-7.41) VBG pCO2 (37-51) mmHg VBG HCO3 (24-28) mmol/L Sodium 136 L (137-145) mmol/L Chloride 93 L (98-107) mmol/L Carbon Dioxide 7 L* (22-30) mmol/L BUN 22 H (7-17) mg/dL Glucose 525 H* (74-99) mg/dL POC Glucose (mg/dL) (70-110) mg/dL Plasma Lactic Acid Kilo (0.7-2.0) mmol/L Phosphorus 5.6 H (2.5-4.5) mg/dL AST 37 H (14-36) U/L Troponin I (0.000-0.034) ng/mL 01/17/25 01/17/25 01/18/25 Range/Units 23:09 23:09 00:31 WBC (4.50-10.00) 10*3/uL RBC (4.10-5.20) 10*6/uL Hgb (12.0-15.0) g/dL Hct (37.2-46.3) % MCH (27.0-32.0) pg MCHC (32.0-37.0) g/dL Immature Gran # (0.00-0.04) 10*3/uL Neutrophils # (1.80-7.70) 10*3/uL Lymphocytes # (0.90-5.00) 10*3/uL Monocytes # (0.20-1.00) 10*3/uL Eosinophils # (0.04-0.35) 10*3/uL APTT (22.0-30.0) sec VBG pH (7.31-7.41) VBG pCO2 (37-51) mmHg VBG HCO3 (24-28) mmol/L Sodium (137-145) mmol/L Chloride (98-107) mmol/L Carbon Dioxide (22-30) mmol/L BUN (7-17) mg/dL Glucose (74-99) mg/dL POC Glucose (mg/dL) 457 H (70-110) mg/dL Plasma Lactic Acid Kilo 4.5 H* (0.7-2.0) mmol/L Phosphorus (2.5-4.5) mg/dL AST (14-36) U/L Troponin I 2.180 H* (0.000-0.034) ng/mL 01/18/25 01/18/25 01/18/25 Range/Units 01:35 02:41 03:56 WBC (4.50-10.00) 10*3/uL RBC (4.10-5.20) 10*6/uL Hgb (12.0-15.0) g/dL Hct (37.2-46.3) % MCH (27.0-32.0) pg MCHC (32.0-37.0) g/dL Immature Gran # (0.00-0.04) 10*3/uL Neutrophils # (1.80-7.70) 10*3/uL Lymphocytes # (0.90-5.00) 10*3/uL Monocytes # (0.20-1.00) 10*3/uL Eosinophils # (0.04-0.35) 10*3/uL APTT (22.0-30.0) sec VBG pH (7.31-7.41) VBG pCO2 (37-51) mmHg VBG HCO3 (24-28) mmol/L Sodium (137-145) mmol/L Chloride (98-107) mmol/L Carbon Dioxide 8 L* (22-30) mmol/L BUN 24 H (7-17) mg/dL Glucose 413 H (74-99) mg/dL POC Glucose (mg/dL) 512 H* 524 H* (70-110) mg/dL Plasma Lactic Acid Kilo (0.7-2.0) mmol/L Phosphorus (2.5-4.5) mg/dL AST 42 H (14-36) U/L Troponin I (0.000-0.034) ng/mL 01/18/25 01/18/25 01/18/25 Range/Units 03:56 03:56 03:59 WBC (4.50-10.00) 10*3/uL RBC (4.10-5.20) 10*6/uL Hgb (12.0-15.0) g/dL Hct (37.2-46.3) % MCH (27.0-32.0) pg MCHC (32.0-37.0) g/dL Immature Gran # (0.00-0.04) 10*3/uL Neutrophils # (1.80-7.70) 10*3/uL Lymphocytes # (0.90-5.00) 10*3/uL Monocytes # (0.20-1.00) 10*3/uL Eosinophils # (0.04-0.35) 10*3/uL APTT (22.0-30.0) sec VBG pH 7.22 L (7.31-7.41) VBG pCO2 23 L (37-51) mmHg VBG HCO3 10 L (24-28) mmol/L Sodium (137-145) mmol/L Chloride (98-107) mmol/L Carbon Dioxide (22-30) mmol/L BUN (7-17) mg/dL Glucose (74-99) mg/dL POC Glucose (mg/dL) 393 H (70-110) mg/dL Plasma Lactic Acid Kilo 5.3 H* (0.7-2.0) mmol/L Phosphorus (2.5-4.5) mg/dL AST (14-36) U/L Troponin I (0.000-0.034) ng/mL 01/18/25 01/18/25 01/18/25 Range/Units 05:08 05:52 07:07 WBC 15.97 H (4.50-10.00) 10*3/uL RBC 3.82 L (4.10-5.20) 10*6/uL Hgb 9.6 L D (12.0-15.0) g/dL Hct 32.3 L (37.2-46.3) % MCH 25.1 L (27.0-32.0) pg MCHC 29.7 L (32.0-37.0) g/dL Immature Gran # 0.09 H (0.00-0.04) 10*3/uL Neutrophils # 13.47 H (1.80-7.70) 10*3/uL Lymphocytes # (0.90-5.00) 10*3/uL Monocytes # 1.46 H (0.20-1.00) 10*3/uL Eosinophils # 0.00 L (0.04-0.35) 10*3/uL APTT (22.0-30.0) sec VBG pH (7.31-7.41) VBG pCO2 (37-51) mmHg VBG HCO3 (24-28) mmol/L Sodium (137-145) mmol/L Chloride (98-107) mmol/L Carbon Dioxide (22-30) mmol/L BUN (7-17) mg/dL Glucose (74-99) mg/dL POC Glucose (mg/dL) 304 H 268 H (70-110) mg/dL Plasma Lactic Acid Kilo (0.7-2.0) mmol/L Phosphorus (2.5-4.5) mg/dL AST (14-36) U/L Troponin I (0.000-0.034) ng/mL 01/18/25 01/18/25 01/18/25 Range/Units 07:07 07:07 07:07 WBC (4.50-10.00) 10*3/uL RBC (4.10-5.20) 10*6/uL Hgb (12.0-15.0) g/dL Hct (37.2-46.3) % MCH (27.0-32.0) pg MCHC (32.0-37.0) g/dL Immature Gran # (0.00-0.04) 10*3/uL Neutrophils # (1.80-7.70) 10*3/uL Lymphocytes # (0.90-5.00) 10*3/uL Monocytes # (0.20-1.00) 10*3/uL Eosinophils # (0.04-0.35) 10*3/uL APTT (22.0-30.0) sec VBG pH (7.31-7.41) VBG pCO2 (37-51) mmHg VBG HCO3 (24-28) mmol/L Sodium (137-145) mmol/L Chloride (98-107) mmol/L Carbon Dioxide 20 L (22-30) mmol/L BUN 24 H (7-17) mg/dL Glucose 263 H (74-99) mg/dL POC Glucose (mg/dL) (70-110) mg/dL Plasma Lactic Acid Kilo (0.7-2.0) mmol/L Phosphorus 2.3 L (2.5-4.5) mg/dL AST 62 H (14-36) U/L Troponin I 14.600 H* (0.000-0.034) ng/mL 01/18/25 01/18/25 01/18/25 Range/Units 07:07 07:23 08:20 WBC 15.49 H (4.50-10.00) 10*3/uL RBC 3.84 L (4.10-5.20) 10*6/uL Hgb 9.7 L (12.0-15.0) g/dL Hct 32.4 L (37.2-46.3) % MCH 25.3 L (27.0-32.0) pg MCHC 29.9 L (32.0-37.0) g/dL Immature Gran # 0.09 H (0.00-0.04) 10*3/uL Neutrophils # 13.10 H (1.80-7.70) 10*3/uL Lymphocytes # (0.90-5.00) 10*3/uL Monocytes # 1.37 H (0.20-1.00) 10*3/uL Eosinophils # 0.00 L (0.04-0.35) 10*3/uL APTT (22.0-30.0) sec VBG pH (7.31-7.41) VBG pCO2 (37-51) mmHg VBG HCO3 (24-28) mmol/L Sodium (137-145) mmol/L Chloride (98-107) mmol/L Carbon Dioxide (22-30) mmol/L BUN (7-17) mg/dL Glucose (74-99) mg/dL POC Glucose (mg/dL) 224 H 231 H (70-110) mg/dL Plasma Lactic Acid Kilo (0.7-2.0) mmol/L Phosphorus (2.5-4.5) mg/dL AST (14-36) U/L Troponin I (0.000-0.034) ng/mL 01/18/25 01/18/25 Range/Units 09:02 09:14 WBC (4.50-10.00) 10*3/uL RBC (4.10-5.20) 10*6/uL Hgb (12.0-15.0) g/dL Hct (37.2-46.3) % MCH (27.0-32.0) pg MCHC (32.0-37.0) g/dL Immature Gran # (0.00-0.04) 10*3/uL Neutrophils # (1.80-7.70) 10*3/uL Lymphocytes # (0.90-5.00) 10*3/uL Monocytes # (0.20-1.00) 10*3/uL Eosinophils # (0.04-0.35) 10*3/uL APTT (22.0-30.0) sec VBG pH (7.31-7.41) VBG pCO2 (37-51) mmHg VBG HCO3 (24-28) mmol/L Sodium (137-145) mmol/L Chloride (98-107) mmol/L Carbon Dioxide (22-30) mmol/L BUN (7-17) mg/dL Glucose (74-99) mg/dL POC Glucose (mg/dL) 190 H (70-110) mg/dL Plasma Lactic Acid Kilo 3.3 H* (0.7-2.0) mmol/L Phosphorus (2.5-4.5) mg/dL AST (14-36) U/L Troponin I (0.000-0.034) ng/mL
[2025-01-19] MEDS ORDERED: METOCLOPRAMIDE 5 MG TAB PO PRN (08:34)
[2025-01-19] MEDS ORDERED: ONDANSETRON ODT 4 MG TAB PO PRN (08:34)
[2025-01-19] MEDS: ONDANSETRON 4 MG/2 ML VIAL IVP STA (08:45)
[2025-01-19] MEDS ORDERED: ASPIRIN 81 MG PO SCH (09:00)
--- NOTE | 2025-01-19 09:34 | P.PN ---
Subjective Progress Note Date: 01/19/25 HISTORY OF PRESENT ILLNESS: This is a 69-year-old female with a previous medical history signif icant for hypertension and hypertensive cardiovascular disease, hyperlipidemia, hypothyroidism, chronic gastroesophageal reflux disease with esophagitis, type 1 diabetes mellitus currently on insulin pump, vitamin D deficiency, diabetic neuropathy, patient also had history of spondylosis of the lumbar spine status post lumbar laminectomy back in 07/01/2022 followed by a wound dehiscence at the [facility] of the lumbar area and she ended up going back for another surgical intervention 2022 followed by a wound care of the surgical site, patient recovered very well from that, patient apparently was recently hospitalized at [facility] for urine from August 21, 2024 till August 27, 2024 after she was admitted for what appears to be an unstable patient myocardial infarction status post left heart catheterization that showed evidence of 20 to 30% stenosis of the left main artery, 40 to 50% stenosis of the LAD where she had a previous stent, and 99% of the RCA with collaterals from left to right, no intervention was done, patient also did have acute blood loss anemia status post 1 unit of packed red blood cells procedure was seen in consultation by general surgery who is recommended not to do any intervention at this point in time, patient was last hospitalized on November 27, 2024 after she was admitted for non-ST elevation myocardial infarction and ischemic cardiomyopathy with ejection fraction of 10 to 15%, at that time she was sent back to endocrinology, patient was discharged recently, under the having an epidural injection. By the pain clinic on the of this month, apparently she continues to yesterday with intractable nausea and vomiting not able to keep anything down, she was not in diabetic status at that time, she was given IV fluid resuscitation, she was given some insulin, she was sent home as outpatient, patient became a lot worse, she was started intractable nausea and vomiting and she was not keeping anything down, she became quite weak in general fatigue and she was brought to the ER again and she was found to be diabeticwith a bicarb level of 8 she was also found to have a lactic acidosis of 5, she was given IV fluid resuscitation, she was found to have a troponin level of 2 she was admitted to the hospital intensive care unit with a diagnosis of diabetic acidosis and lactic acidosis with non-ST elevation myocardial function, with cardiology consultation as well as pulmonary consultation was obtained. 01/19: Patient is laying down in bed in no apparent distress, she denies any chest pain at this time, she has no shortness of breath, her troponin is quite elevated, she was seen in consultation by cardiology, she has been started back on her metoprolol 25 mg orally twice every day, baby aspirin 81 mg once every day, Lipitor 80 mg once every day, she has been on heparin drip, she was seen in consultation by cardiology she has ruled in non-ST elevation CO, patient's chest pain-free at this point in time, she has underlying ischemic cardiomyopathy with ejection fraction of 15 %, we will continue to follow-up with the patient he was transition to Lantus 25 units at bedtime along with a sliding scale insulin as her anion gap has closed. REVIEW OF SYSTEMS: Constitutional: No documented fever, no chills, no night sweats. significant weight gain No weakness, fatigue or lethargy. No daytime sleepiness. HEENT: No headache. No blurred vision or double vision, no loss of vision. No loss of Hearing, no ringing in the ears, no dizziness. No nasal drainage or congestion. No epistaxis. No sore throat. Lungs: positive for shortness of breath, occasional cough, no sputum production. No wheezing. Reports dyspnea with activity, positive for orthopneam and PND Cardiovascular: No chest pain, positive for mild lower extremity edema. positive for palpitations. no paroxysmal nocturnal dyspnea. no orthopnea. No lightheadedness or dizziness. No syncopal episodes. Abdominal: Reports no abdominal pain. positive for nausea, vomiting. No diarrhea. No constipation. No bloody or tarry stools reports loss of appetite. Genitourinary: No dysuria, increased frequency, urgency. No urinary retention. Musculoskeletal: No myalgias. positive for muscle weakness, positive for gait dysfunction, no frequent falls. positive for back pain. No neck pain. Integumentary: No wounds, no lesions. No rash or pruritus. Positive for bruising to bilateral lower extremities. No change in hair or nails. Neurologic: No aphasia. No facial droop. No change in mentation. No head injury. No headache. Right lower extremity weakness, positive for paresthesia. Psychiatric: Positive depression. No anxiety. No mood swings. Endocrine: No abnormal blood sugars. No weight change. PHYSICAL EXAMINATION: General: this is a 69-year-old female laying down in bed in minimal distress HEENT: Head is atraumatic, normocephalic, pupils were equal round reactive to light and recommendation, extraocular muscle movement were intact, sclera nonicteric, conjunctivae were pale, mucous membranes of the mouth are somewhat dry. Neck: Supple, no JVP, normal carotid upstroke bilaterally, no lymphadenopathy. Chest: Decreased breath sounds at the bases, few rhonchi, no expiratory wheezes, no chest wall tenderness, no intercostal retractions Heart: First heart sound is normal, second heart sound is normal there is systolic ejection murmur 2/6 located in the left sternal border Abdomen: Soft, nontender, nondistended, positive bowel sounds. 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 Skin-Prep. ASSESSMENT AND PLAN: 1. Acute anion gap metabolic acidosis due to diabetic ketoacidosis as well as lactic acidosis patient is transitioned into Lantus 24 units at bedtime along with a sliding scale insulin, advance diet as tolerated. 2. Acute non-ST elevation CO in a patient with prior history coronary artery disease status post PCI of the LAD with recent left heart catheterization that was done July 2024 that showed evidence of left main disease 20 to 30%, LAD 4050% stenosis where the stent is and RCA 99% stenosis with collaterals from left to right. Continue patient on metoprolol 25 mg orally twice every day, aspirin 81 mg once every day, also continue patient on atorvastatin 40 mg orally once every day, keep LDL 55-70 continue heparin drip. Cardiology consultation appreciated. 3. History of pulmonary embolism. Continue with heparin drip for now. 4. Paroxysmal atrial fibrillation/flutter. Continue patient on metoprolol 25 mg orally twice every day, continue heparin drip for now, 5. Hypertension and hypertensive cardiovascular disease. Continue patient on metoprolol 25 mg orally twice every day, losartan 100 mg orally once every day, monitor the patient blood pressure very closely. 6. Hyperlipidemia. continue atorvastatin 80 mg orally once every day, monitor the patient the benefit, keep LDL 55-70. 7. Hypothyroidism. Continue patient on Synthroid 112 g orally once every day monitor TSH and free T4. 8. Diabetes mellitus type 1. Patient is back to Lantus 25 units at bedtime along with a sliding scale insulin continue to monitor the patient blood glucose level before each meal and at bedtime. 9. GERD with esophagitis and had a hernia. Continue patient on omeprazole 20 mg mg once every day along with Pepcid 20 mg orally twice every day. 10. Obesity with obstructive sleep apnea and possible obesity hypoventilation syndrome patient will need to have a sleep study as an outpatient. 11. Vitamin D deficiency. Continue vitamin D3 2000 units once every day. 12. History of kidney stones. stable at this time 13. DVT prophylaxis. Continue heparin drip for now. 14. GI prophylaxis. Continue omeprazole 20 mg orally once every day 15. Chronic low back pain due to spondylosis of the lumbar spine continue with hydrocodone as needed, morphine sulfate for severe pain. Physical therapy evaluation. 16. History of gout. Continue patient on allopurinol 100 mg orally once every day. 17. Medical debility. Physical therapy evaluation. 18. Social consultation for discharge planning. Objective - Vital Signs Vital signs: Vital Signs Temp 97.6 F 01/19/25 04:00 Pulse 83 01/19/25 07:00 Resp 18 01/19/25 01:00 BP 115/56 01/19/25 07:00 Pulse Ox 96 01/19/25 07:00 FiO2 Intake & Output 01/18/25 01/19/25 01/19/25 18:59 06:59 18:59 Intake Total 659.663 833.263 50 Output Total 400 200 0 Balance 259.663 633.263 50 Weight 90.2 kg 92.7 kg Intake: IV 600 600 50 D5-0.45% NaCl with KCl 600 600 50 20Meq/l 1,000 ml @ 50 mls /hr IV .Q20H NATHAN Rx#: [id number] Intake, IV Titration 59.663 233.263 Amount Heparin Sod,Pork in 0.45% 233.263 NaCl 25,000 unit In 0.45 % NaCl 1 250ml.bag @ 11. 02 UNITS/KG/HR 9.997 mls/ hr IV .Q24H NATHAN Rx#: [id number] Insulin Regular 100 unit 59.663 In Sodium Chloride 0.9% 100 ml @ 0.1 UNITS/KG/HR 9.163 mls/hr IV .Q11H2M NATHAN Rx#:[id number] Output: Urine 400 200 0 Other: Voiding Method External Catheter External Catheter # Voids 1 - Labs CBC & Chem 7: 01/19/25 07:01 01/19/25 07:01 Labs: Abnormal Lab Results - Last 24 Hours (Table) 01/18/25 01/18/25 01/18/25 Range/Units 07:07 07:07 07:07 WBC 15.49 H (4.50-10.00) 10*3/uL RBC 3.84 L (4.10-5.20) 10*6/uL Hgb 9.7 L (12.0-15.0) g/dL Hct 32.4 L (37.2-46.3) % MCH 25.3 L (27.0-32.0) pg MCHC 29.9 L (32.0-37.0) g/dL Immature Gran # 0.09 H (0.00-0.04) 10*3/uL Neutrophils # 13.10 H (1.80-7.70) 10*3/uL Monocytes # 1.37 H (0.20-1.00) 10*3/uL Eosinophils # 0.00 L (0.04-0.35) 10*3/uL APTT (22.0-30.0) sec Sodium (137-145) mmol/L Carbon Dioxide 20 L (22-30) mmol/L BUN 24 H (7-17) mg/dL Glucose 263 H (74-99) mg/dL POC Glucose (mg/dL) (70-110) mg/dL Plasma Lactic Acid Kilo (0.7-2.0) mmol/L Phosphorus (2.5-4.5) mg/dL AST 62 H (14-36) U/L Troponin I 14.600 H* (0.000-0.034) ng/mL Total Protein (6.3-8.2) g/dL Albumin (3.5-5.0) g/dL Ur Specific [place] (1.001-1.035) Urine Glucose (UA) (Negative) Urine Ketones (Negative) Urine Bilirubin (Negative) Ur Leukocyte Esterase (Negative) Urine RBC (0-5) /hpf Ur Squamous Epith Cells (0-4) /hpf Urine Bacteria (None) /hpf Urine Yeast (Budding) (None) /hpf 01/18/25 01/18/25 01/18/25 Range/Units 09:02 09:14 09:59 WBC (4.50-10.00) 10*3/uL RBC (4.10-5.20) 10*6/uL Hgb (12.0-15.0) g/dL Hct (37.2-46.3) % MCH (27.0-32.0) pg MCHC (32.0-37.0) g/dL Immature Gran # (0.00-0.04) 10*3/uL Neutrophils # (1.80-7.70) 10*3/uL Monocytes # (0.20-1.00) 10*3/uL Eosinophils # (0.04-0.35) 10*3/uL APTT (22.0-30.0) sec Sodium (137-145) mmol/L Carbon Dioxide (22-30) mmol/L BUN (7-17) mg/dL Glucose (74-99) mg/dL POC Glucose (mg/dL) 190 H 190 H (70-110) mg/dL Plasma Lactic Acid Kilo 3.3 H* (0.7-2.0) mmol/L Phosphorus (2.5-4.5) mg/dL AST (14-36) U/L Troponin I (0.000-0.034) ng/mL Total Protein (6.3-8.2) g/dL Albumin (3.5-5.0) g/dL Ur Specific [place] (1.001-1.035) Urine Glucose (UA) (Negative) Urine Ketones (Negative) Urine Bilirubin (Negative) Ur Leukocyte Esterase (Negative) Urine RBC (0-5) /hpf Ur Squamous Epith Cells (0-4) /hpf Urine Bacteria (None) /hpf Urine Yeast (Budding) (None) /hpf 01/18/25 01/18/25 01/18/25 Range/Units 10:53 11:05 12:01 WBC (4.50-10.00) 10*3/uL RBC (4.10-5.20) 10*6/uL Hgb (12.0-15.0) g/dL Hct (37.2-46.3) % MCH (27.0-32.0) pg MCHC (32.0-37.0) g/dL Immature Gran # (0.00-0.04) 10*3/uL Neutrophils # (1.80-7.70) 10*3/uL Monocytes # (0.20-1.00) 10*3/uL Eosinophils # (0.04-0.35) 10*3/uL APTT (22.0-30.0) sec Sodium (137-145) mmol/L Carbon Dioxide (22-30) mmol/L BUN (7-17) mg/dL Glucose (74-99) mg/dL POC Glucose (mg/dL) 143 H 126 H (70-110) mg/dL Plasma Lactic Acid Kilo (0.7-2.0) mmol/L Phosphorus (2.5-4.5) mg/dL AST (14-36) U/L Troponin I 30.900 H* (0.000-0.034) ng/mL Total Protein (6.3-8.2) g/dL Albumin (3.5-5.0) g/dL Ur Specific [place] (1.001-1.035) Urine Glucose (UA) (Negative) Urine Ketones (Negative) Urine Bilirubin (Negative) Ur Leukocyte Esterase (Negative) Urine RBC (0-5) /hpf Ur Squamous Epith Cells (0-4) /hpf Urine Bacteria (None) /hpf Urine Yeast (Budding) (None) /hpf 01/18/25 01/18/25 01/18/25 Range/Units 12:25 13:19 13:19 WBC (4.50-10.00) 10*3/uL RBC (4.10-5.20) 10*6/uL Hgb (12.0-15.0) g/dL Hct (37.2-46.3) % MCH (27.0-32.0) pg MCHC (32.0-37.0) g/dL Immature Gran # (0.00-0.04) 10*3/uL Neutrophils # (1.80-7.70) 10*3/uL Monocytes # (0.20-1.00) 10*3/uL Eosinophils # (0.04-0.35) 10*3/uL APTT 44.2 H (22.0-30.0) sec Sodium (137-145) mmol/L Carbon Dioxide (22-30) mmol/L BUN (7-17) mg/dL Glucose (74-99) mg/dL POC Glucose (mg/dL) (70-110) mg/dL Plasma Lactic Acid Kilo (0.7-2.0) mmol/L Phosphorus (2.5-4.5) mg/dL AST (14-36) U/L Troponin I 38.900 H* (0.000-0.034) ng/mL Total Protein (6.3-8.2) g/dL Albumin (3.5-5.0) g/dL Ur Specific [place] 1.050 H (1.001-1.035) Urine Glucose (UA) 4+ H (Negative) Urine Ketones 1+ H (Negative) Urine Bilirubin 1+ H (Negative) Ur Leukocyte Esterase Trace H (Negative) Urine RBC 64 H (0-5) /hpf Ur Squamous Epith Cells 6 H (0-4) /hpf Urine Bacteria Rare H (None) /hpf Urine Yeast (Budding) Many H (None) /hpf 01/18/25 01/18/25 01/18/25 Range/Units 13:19 13:19 13:19 WBC (4.50-10.00) 10*3/uL RBC (4.10-5.20) 10*6/uL Hgb (12.0-15.0) g/dL Hct (37.2-46.3) % MCH (27.0-32.0) pg MCHC (32.0-37.0) g/dL Immature Gran # (0.00-0.04) 10*3/uL Neutrophils # (1.80-7.70) 10*3/uL Monocytes # (0.20-1.00) 10*3/uL Eosinophils # (0.04-0.35) 10*3/uL APTT (22.0-30.0) sec Sodium (137-145) mmol/L Carbon Dioxide 34 H (22-30) mmol/L BUN 25 H (7-17) mg/dL Glucose 176 H (74-99) mg/dL POC Glucose (mg/dL) (70-110) mg/dL Plasma Lactic Acid Kilo 3.0 H* (0.7-2.0) mmol/L Phosphorus 2.3 L (2.5-4.5) mg/dL AST (14-36) U/L Troponin I (0.000-0.034) ng/mL Total Protein (6.3-8.2) g/dL Albumin (3.5-5.0) g/dL Ur Specific [place] (1.001-1.035) Urine Glucose (UA) (Negative) Urine Ketones (Negative) Urine Bilirubin (Negative) Ur Leukocyte Esterase (Negative) Urine RBC (0-5) /hpf Ur Squamous Epith Cells (0-4) /hpf Urine Bacteria (None) /hpf Urine Yeast (Budding) (None) /hpf 01/18/25 01/18/25 01/18/25 Range/Units 14:05 14:34 15:16 WBC (4.50-10.00) 10*3/uL RBC (4.10-5.20) 10*6/uL Hgb (12.0-15.0) g/dL Hct (37.2-46.3) % MCH (27.0-32.0) pg MCHC (32.0-37.0) g/dL Immature Gran # (0.00-0.04) 10*3/uL Neutrophils # (1.80-7.70) 10*3/uL Monocytes # (0.20-1.00) 10*3/uL Eosinophils # (0.04-0.35) 10*3/uL APTT (22.0-30.0) sec Sodium (137-145) mmol/L Carbon Dioxide (22-30) mmol/L BUN (7-17) mg/dL Glucose (74-99) mg/dL POC Glucose (mg/dL) 171 H 214 H 188 H (70-110) mg/dL Plasma Lactic Acid Kilo (0.7-2.0) mmol/L Phosphorus (2.5-4.5) mg/dL AST (14-36) U/L Troponin I (0.000-0.034) ng/mL Total Protein (6.3-8.2) g/dL Albumin (3.5-5.0) g/dL Ur Specific [place] (1.001-1.035) Urine Glucose (UA) (Negative) Urine Ketones (Negative) Urine Bilirubin (Negative) Ur Leukocyte Esterase (Negative) Urine RBC (0-5) /hpf Ur Squamous Epith Cells (0-4) /hpf Urine Bacteria (None) /hpf Urine Yeast (Budding) (None) /hpf 01/18/25 01/18/25 01/18/25 Range/Units 16:05 16:28 17:03 WBC (4.50-10.00) 10*3/uL RBC (4.10-5.20) 10*6/uL Hgb (12.0-15.0) g/dL Hct (37.2-46.3) % MCH (27.0-32.0) pg MCHC (32.0-37.0) g/dL Immature Gran # (0.00-0.04) 10*3/uL Neutrophils # (1.80-7.70) 10*3/uL Monocytes # (0.20-1.00) 10*3/uL Eosinophils # (0.04-0.35) 10*3/uL APTT (22.0-30.0) sec Sodium (137-145) mmol/L Carbon Dioxide (22-30) mmol/L BUN (7-17) mg/dL Glucose (74-99) mg/dL POC Glucose (mg/dL) 221 H 242 H (70-110) mg/dL Plasma Lactic Acid Kilo 3.2 H* (0.7-2.0) mmol/L Phosphorus (2.5-4.5) mg/dL AST (14-36) U/L Troponin I (0.000-0.034) ng/mL Total Protein (6.3-8.2) g/dL Albumin (3.5-5.0) g/dL Ur Specific [place] (1.001-1.035) Urine Glucose (UA) (Negative) Urine Ketones (Negative) Urine Bilirubin (Negative) Ur Leukocyte Esterase (Negative) Urine RBC (0-5) /hpf Ur Squamous Epith Cells (0-4) /hpf Urine Bacteria (None) /hpf Urine Yeast (Budding) (None) /hpf 01/18/25 01/18/25 01/19/25 Range/Units 20:28 21:36 06:40 WBC (4.50-10.00) 10*3/uL RBC (4.10-5.20) 10*6/uL Hgb (12.0-15.0) g/dL Hct (37.2-46.3) % MCH (27.0-32.0) pg MCHC (32.0-37.0) g/dL Immature Gran # (0.00-0.04) 10*3/uL Neutrophils # (1.80-7.70) 10*3/uL Monocytes # (0.20-1.00) 10*3/uL Eosinophils # (0.04-0.35) 10*3/uL APTT (22.0-30.0) sec Sodium 132 L (137-145) mmol/L Carbon Dioxide 19 L (22-30) mmol/L BUN 25 H (7-17) mg/dL Glucose 298 H (74-99) mg/dL POC Glucose (mg/dL) 291 H 398 H (70-110) mg/dL Plasma Lactic Acid Kilo (0.7-2.0) mmol/L Phosphorus (2.5-4.5) mg/dL AST (14-36) U/L Troponin I (0.000-0.034) ng/mL Total Protein (6.3-8.2) g/dL Albumin (3.5-5.0) g/dL Ur Specific [place] (1.001-1.035) Urine Glucose (UA) (Negative) Urine Ketones (Negative) Urine Bilirubin (Negative) Ur Leukocyte Esterase (Negative) Urine RBC (0-5) /hpf Ur Squamous Epith Cells (0-4) /hpf Urine Bacteria (None) /hpf Urine Yeast (Budding) (None) /hpf 01/19/25 01/19/25 01/19/25 Range/Units 07:01 07:01 07:01 WBC 14.15 H (4.50-10.00) 10*3/uL RBC 3.87 L (4.10-5.20) 10*6/uL Hgb 9.8 L (12.0-15.0) g/dL Hct 32.6 L (37.2-46.3) % MCH 25.3 L (27.0-32.0) pg MCHC 30.1 L (32.0-37.0) g/dL Immature Gran # 0.07 H (0.00-0.04) 10*3/uL Neutrophils # 11.41 H (1.80-7.70) 10*3/uL Monocytes # 1.10 H (0.20-1.00) 10*3/uL Eosinophils # 0.00 L (0.04-0.35) 10*3/uL APTT 50.8 H (22.0-30.0) sec Sodium 131 L (137-145) mmol/L Carbon Dioxide 20 L (22-30) mmol/L BUN 26 H (7-17) mg/dL Glucose 393 H (74-99) mg/dL POC Glucose (mg/dL) (70-110) mg/dL Plasma Lactic Acid Kilo (0.7-2.0) mmol/L Phosphorus (2.5-4.5) mg/dL AST 107 H (14-36) U/L Troponin I (0.000-0.034) ng/mL Total Protein 6.2 L (6.3-8.2) g/dL Albumin 3.1 L (3.5-5.0) g/dL Ur Specific [place] (1.001-1.035) Urine Glucose (UA) (Negative) Urine Ketones (Negative) Urine Bilirubin (Negative) Ur Leukocyte Esterase (Negative) Urine RBC (0-5) /hpf Ur Squamous Epith Cells (0-4) /hpf Urine Bacteria (None) /hpf Urine Yeast (Budding) (None) /hpf
[2025-01-19] MEDS ORDERED: ONDANSETRON 4 MG/2 ML VIAL IVP PRN (09:45)
[2025-01-19] MEDS: METOCLOPRAMIDE 5 MG/ML 2 ML VIAL IVP PRN (09:51)
[2025-01-19] MEDS: FAMOTIDINE 20 MG TAB PO SCH (10:33)
[2025-01-19] MEDS: METOPROLOL TARTRATE 25 MG TAB PO SCH (10:36)
[2025-01-19] MEDS: TAMSULOSIN 0.4 MG CAP.ER.24H PO SCH (10:36)
[2025-01-19 12:41] LABS: Glucose,Whole Blood 309 mg/dL (70-110)
[2025-01-19] MEDS: MAGNESIUM SULFATE-D5W PMX 1 GM in DEXTROSE/WATER 1 100ML.BAG IVPB ONE (12:49)
--- NOTE | 2025-01-19 13:30 | P.PN ---
Subjective Progress Note Date: 01/19/25 The patient is a 69-year-old female who follows in the office with Dr. Elkins. She was admitted to the hospital with nausea and vomiting, secondary to diabetic ketoacidosis. Cardiology has been consulted as she had elevated troponin. Patient has a known history of coronary artery disease with recent c oronary angiogram in November showing intermediate to severe disease with right to left collaterals. Patient states she did well overnight. No chest pain or pressure. No difficulty breathing. Patient reports abdominal discomfort, including nausea. She also states she generally just feels unwell. GENERAL: Well-appearing, well-nourished and in no acute distress. NECK: Supple without JVD or thyromegaly. LUNGS: Breath sounds clear to auscultation bilaterally. Respiration equal and unlabored. No wheezes, rales or rhonchi. HEART: Regular rate and rhythm without murmurs, rubs or gallops. S1 and S2 heard. EXTREMITIES: Normal range of motion, no edema. No clubbing or cyanosis. Peripheral pulses intact and strong. TELEMETRY: Sinus rhythm overnight LABS: WBC 14.1, hemoglobin 9.8, hematocrit 32.6, platelet 241, sodium 131, potassium 0.8, BUN 26, creatinine 0.91, AST 13, ALT 94 IMPRESSION: Nausea and vomiting DKA Non-STEMI Coronary artery disease with previous PCI Hypertension Hyperlipidemia History of diabetes History of hypothyroidism History of atrial flutter History of congestive heart failure with reduced EF PLAN: Continue supportive treatment for DKA Continue heparin drip Coronary angiogram to assess progression of coronary artery disease once patient has improved Further recommendations to be made based upon clinical course I am dictating on behalf of Dr Dylon Boone's history/physical and assessment/plan. Objective - Vital Signs Vital signs: Vital Signs Temp 97.7 F 01/19/25 12:00 Pulse 77 01/19/25 13:00 Resp 14 01/19/25 13:00 BP 106/56 01/19/25 13:00 Pulse Ox 100 01/19/25 13:00 FiO2 Intake & Output 01/18/25 01/19/25 01/19/25 18:59 06:59 18:59 Intake Total 659.663 833.263 450 Output Total 400 200 150 Balance 259.663 633.263 300 Weight 90.2 kg 92.7 kg 92.7 kg Intake: IV 600 600 450 D5-0.45% NaCl with KCl 600 600 350 20Meq/l 1,000 ml @ 50 mls /hr IV .Q20H [facility] Rx#: [id number] Magnesium Sulfate-D5w Pmx 100 1 gm In Dextrose/Water 1 100ml.bag @ 100 mls/hr IVPB ONCE ONE Rx#: [id number] Intake, IV Titration 59.663 233.263 Amount Heparin Sod,Pork in 0.45% 233.263 NaCl 25,000 unit In 0.45 % NaCl 1 250ml.bag @ 11. 02 UNITS/KG/HR 9.997 mls/ hr IV .Q24H [facility] Rx#: [id number] Insulin Regular 100 unit 59.663 In Sodium Chloride 0.9% 100 ml @ 0.1 UNITS/KG/HR 9.163 mls/hr IV .Q11H2M [facility] Rx#:[id number] Output: Urine 400 200 150 Other: Voiding Method External Catheter External Catheter External Catheter # Voids 1 0 - Labs CBC & Chem 7: 01/19/25 07:01 01/19/25 07:01 Labs: Abnormal Lab Results - Last 24 Hours (Table) 01/18/25 01/18/25 01/18/25 Range/Units 12:25 13:19 13:19 WBC (4.50-10.00) 10*3/uL RBC (4.10-5.20) 10*6/uL Hgb (12.0-15.0) g/dL Hct (37.2-46.3) % MCH (27.0-32.0) pg MCHC (32.0-37.0) g/dL Immature Gran # (0.00-0.04) 10*3/uL Neutrophils # (1.80-7.70) 10*3/uL Monocytes # (0.20-1.00) 10*3/uL Eosinophils # (0.04-0.35) 10*3/uL APTT 44.2 H (22.0-30.0) sec Sodium (137-145) mmol/L Carbon Dioxide (22-30) mmol/L BUN (7-17) mg/dL Glucose (74-99) mg/dL POC Glucose (mg/dL) (70-110) mg/dL Hemoglobin A1c (<=6.0) % Plasma Lactic Acid Kilo (0.7-2.0) mmol/L Phosphorus (2.5-4.5) mg/dL AST (14-36) U/L Troponin I 38.900 H* (0.000-0.034) ng/mL Total Protein (6.3-8.2) g/dL Albumin (3.5-5.0) g/dL Ur Specific Enochs 1.050 H (1.001-1.035) Urine Glucose (UA) 4+ H (Negative) Urine Ketones 1+ H (Negative) Urine Bilirubin 1+ H (Negative) Ur Leukocyte Esterase Trace H (Negative) Urine RBC 64 H (0-5) /hpf Ur Squamous Epith Cells 6 H (0-4) /hpf Urine Bacteria Rare H (None) /hpf Urine Yeast (Budding) Many H (None) /hpf 01/18/25 01/18/25 01/18/25 Range/Units 13:19 13:19 13:19 WBC (4.50-10.00) 10*3/uL RBC (4.10-5.20) 10*6/uL Hgb (12.0-15.0) g/dL Hct (37.2-46.3) % MCH (27.0-32.0) pg MCHC (32.0-37.0) g/dL Immature Gran # (0.00-0.04) 10*3/uL Neutrophils # (1.80-7.70) 10*3/uL Monocytes # (0.20-1.00) 10*3/uL Eosinophils # (0.04-0.35) 10*3/uL APTT (22.0-30.0) sec Sodium (137-145) mmol/L Carbon Dioxide 34 H (22-30) mmol/L BUN 25 H (7-17) mg/dL Glucose 176 H (74-99) mg/dL POC Glucose (mg/dL) (70-110) mg/dL Hemoglobin A1c (<=6.0) % Plasma Lactic Acid Kilo 3.0 H* (0.7-2.0) mmol/L Phosphorus 2.3 L (2.5-4.5) mg/dL AST (14-36) U/L Troponin I (0.000-0.034) ng/mL Total Protein (6.3-8.2) g/dL Albumin (3.5-5.0) g/dL Ur Specific Enochs (1.001-1.035) Urine Glucose (UA) (Negative) Urine Ketones (Negative) Urine Bilirubin (Negative) Ur Leukocyte Esterase (Negative) Urine RBC (0-5) /hpf Ur Squamous Epith Cells (0-4) /hpf Urine Bacteria (None) /hpf Urine Yeast (Budding) (None) /hpf 01/18/25 01/18/25 01/18/25 Range/Units 14:05 14:34 15:16 WBC (4.50-10.00) 10*3/uL RBC (4.10-5.20) 10*6/uL Hgb (12.0-15.0) g/dL Hct (37.2-46.3) % MCH (27.0-32.0) pg MCHC (32.0-37.0) g/dL Immature Gran # (0.00-0.04) 10*3/uL Neutrophils # (1.80-7.70) 10*3/uL Monocytes # (0.20-1.00) 10*3/uL Eosinophils # (0.04-0.35) 10*3/uL APTT (22.0-30.0) sec Sodium (137-145) mmol/L Carbon Dioxide (22-30) mmol/L BUN (7-17) mg/dL Glucose (74-99) mg/dL POC Glucose (mg/dL) 171 H 214 H 188 H (70-110) mg/dL Hemoglobin A1c (<=6.0) % Plasma Lactic Acid Kilo (0.7-2.0) mmol/L Phosphorus (2.5-4.5) mg/dL AST (14-36) U/L Troponin I (0.000-0.034) ng/mL Total Protein (6.3-8.2) g/dL Albumin (3.5-5.0) g/dL Ur Specific Enochs (1.001-1.035) Urine Glucose (UA) (Negative) Urine Ketones (Negative) Urine Bilirubin (Negative) Ur Leukocyte Esterase (Negative) Urine RBC (0-5) /hpf Ur Squamous Epith Cells (0-4) /hpf Urine Bacteria (None) /hpf Urine Yeast (Budding) (None) /hpf 01/18/25 01/18/25 01/18/25 Range/Units 16:05 16:28 17:03 WBC (4.50-10.00) 10*3/uL RBC (4.10-5.20) 10*6/uL Hgb (12.0-15.0) g/dL Hct (37.2-46.3) % MCH (27.0-32.0) pg MCHC (32.0-37.0) g/dL Immature Gran # (0.00-0.04) 10*3/uL Neutrophils # (1.80-7.70) 10*3/uL Monocytes # (0.20-1.00) 10*3/uL Eosinophils # (0.04-0.35) 10*3/uL APTT (22.0-30.0) sec Sodium (137-145) mmol/L Carbon Dioxide (22-30) mmol/L BUN (7-17) mg/dL Glucose (74-99) mg/dL POC Glucose (mg/dL) 221 H 242 H (70-110) mg/dL Hemoglobin A1c (<=6.0) % Plasma Lactic Acid Kilo 3.2 H* (0.7-2.0) mmol/L Phosphorus (2.5-4.5) mg/dL AST (14-36) U/L Troponin I (0.000-0.034) ng/mL Total Protein (6.3-8.2) g/dL Albumin (3.5-5.0) g/dL Ur Specific Enochs (1.001-1.035) Urine Glucose (UA) (Negative) Urine Ketones (Negative) Urine Bilirubin (Negative) Ur Leukocyte Esterase (Negative) Urine RBC (0-5) /hpf Ur Squamous Epith Cells (0-4) /hpf Urine Bacteria (None) /hpf Urine Yeast (Budding) (None) /hpf 01/18/25 01/18/25 01/19/25 Range/Units 20:28 21:36 06:40 WBC (4.50-10.00) 10*3/uL RBC (4.10-5.20) 10*6/uL Hgb (12.0-15.0) g/dL Hct (37.2-46.3) % MCH (27.0-32.0) pg MCHC (32.0-37.0) g/dL Immature Gran # (0.00-0.04) 10*3/uL Neutrophils # (1.80-7.70) 10*3/uL Monocytes # (0.20-1.00) 10*3/uL Eosinophils # (0.04-0.35) 10*3/uL APTT (22.0-30.0) sec Sodium 132 L (137-145) mmol/L Carbon Dioxide 19 L (22-30) mmol/L BUN 25 H (7-17) mg/dL Glucose 298 H (74-99) mg/dL POC Glucose (mg/dL) 291 H 398 H (70-110) mg/dL Hemoglobin A1c (<=6.0) % Plasma Lactic Acid Kilo (0.7-2.0) mmol/L Phosphorus (2.5-4.5) mg/dL AST (14-36) U/L Troponin I (0.000-0.034) ng/mL Total Protein (6.3-8.2) g/dL Albumin (3.5-5.0) g/dL Ur Specific Enochs (1.001-1.035) Urine Glucose (UA) (Negative) Urine Ketones (Negative) Urine Bilirubin (Negative) Ur Leukocyte Esterase (Negative) Urine RBC (0-5) /hpf Ur Squamous Epith Cells (0-4) /hpf Urine Bacteria (None) /hpf Urine Yeast (Budding) (None) /hpf 01/19/25 01/19/25 01/19/25 Range/Units 07:01 07:01 07:01 WBC (4.50-10.00) 10*3/uL RBC (4.10-5.20) 10*6/uL Hgb (12.0-15.0) g/dL Hct (37.2-46.3) % MCH (27.0-32.0) pg MCHC (32.0-37.0) g/dL Immature Gran # (0.00-0.04) 10*3/uL Neutrophils # (1.80-7.70) 10*3/uL Monocytes # (0.20-1.00) 10*3/uL Eosinophils # (0.04-0.35) 10*3/uL APTT 50.8 H (22.0-30.0) sec Sodium 131 L (137-145) mmol/L Carbon Dioxide 20 L (22-30) mmol/L BUN 26 H (7-17) mg/dL Glucose 393 H (74-99) mg/dL POC Glucose (mg/dL) (70-110) mg/dL Hemoglobin A1c 10.0 H (<=6.0) % Plasma Lactic Acid Kilo (0.7-2.0) mmol/L Phosphorus (2.5-4.5) mg/dL AST 107 H (14-36) U/L Troponin I (0.000-0.034) ng/mL Total Protein 6.2 L (6.3-8.2) g/dL Albumin 3.1 L (3.5-5.0) g/dL Ur Specific Enochs (1.001-1.035) Urine Glucose (UA) (Negative) Urine Ketones (Negative) Urine Bilirubin (Negative) Ur Leukocyte Esterase (Negative) Urine RBC (0-5) /hpf Ur Squamous Epith Cells (0-4) /hpf Urine Bacteria (None) /hpf Urine Yeast (Budding) (None) /hpf 01/19/25 01/19/25 Range/Units 07:01 12:40 WBC 14.15 H (4.50-10.00) 10*3/uL RBC 3.87 L (4.10-5.20) 10*6/uL Hgb 9.8 L (12.0-15.0) g/dL Hct 32.6 L (37.2-46.3) % MCH 25.3 L (27.0-32.0) pg MCHC 30.1 L (32.0-37.0) g/dL Immature Gran # 0.07 H (0.00-0.04) 10*3/uL Neutrophils # 11.41 H (1.80-7.70) 10*3/uL Monocytes # 1.10 H (0.20-1.00) 10*3/uL Eosinophils # 0.00 L (0.04-0.35) 10*3/uL APTT (22.0-30.0) sec Sodium (137-145) mmol/L Carbon Dioxide (22-30) mmol/L BUN (7-17) mg/dL Glucose (74-99) mg/dL POC Glucose (mg/dL) 309 H (70-110) mg/dL Hemoglobin A1c (<=6.0) % Plasma Lactic Acid Kilo (0.7-2.0) mmol/L Phosphorus (2.5-4.5) mg/dL AST (14-36) U/L Troponin I (0.000-0.034) ng/mL Total Protein (6.3-8.2) g/dL Albumin (3.5-5.0) g/dL Ur Specific Enochs (1.001-1.035) Urine Glucose (UA) (Negative) Urine Ketones (Negative) Urine Bilirubin (Negative) Ur Leukocyte Esterase (Negative) Urine RBC (0-5) /hpf Ur Squamous Epith Cells (0-4) /hpf Urine Bacteria (None) /hpf Urine Yeast (Budding) (None) /hpf
[2025-01-19 16:31] LABS: Glucose,Whole Blood 332 mg/dL (70-110)
--- NOTE | 2025-01-19 16:44 | P.PN ---
Subjective Progress Note Date: 01/19/25 This is a 69-year-old female patient being seen in the emergency department and the patient is going to be transferred to the ICU. The patient is known to have coronary artery disease and the patient has undergone recent cardiac catheterization in November 2024 revealing a 20 to 30% left main, 40 to 50% mid LAD, 100% proximal RCA with [id number] collaterals. Medical management was recommended. The patient also has cardiomyopathy with impaired LV function with an ejection fraction of 20 to 25% based on echocardiogram from November 2024. The patient was having persistent nausea and emesis on outpatient basis. She was unable to tolerate any form of oral intake and she quit taking her insulin the patient is diabetic. She used to be on insulin pump in the past and the patient is currently on Lantus insulin. Denies having any significant abdominal pain. She had been having emesis and nausea for the past 4 days at least. Based on that, the patient was came into the hospital and in the emergency department, the patient was found to have anion gap metabolic acidosis consistent with DKA. The patient had a serum bicarb of 7 with a gap of 36 and a blood sugar of 525. Normal renal function. Initial lactic acid level was at 4.5, troponin peaked at 38,000 consistent with acute non-ST segment elevation myocardial infarction. EKG from emergency department showed sinus rhythm with frequent ectopies, PVCs and interventricular conduction delay and right axis deviation. Accordingly, the patient was started on IV fluids. The patient was given a total of 2.5 L of normal saline and started on DKA protocol. The patient is currently on insulin drip for blood sugar control. Subsequent electrolytes showed improvement in the serum bicarb came up to 34 with a gap of 1 and the blood sugar is currently at 176. Lactic acid level dropped down to 3.2. The patient is awake and alert and communicating. Free of any chest pain. No ongoing nausea or emesis. She is also on IV heparin and cardiology consultation has been obtained. She remains on aspirin. She remains on metoprolol 25 mg p.o. twice daily. IV fluids has been switched to D5 half-normal saline which is currently running at a rate of 50 cc an hour. In terms of respiratory status, the patient is stable on 2 L of oxygen by nasal cannula with a pulse ox of 99%. CAT scan of the abdomen and pelvis showed normal appendix, normal bowel pattern, colonic diverticulosis and moderate degree of hiatal hernia. Chest x-ray showed moderate cardiomegaly with mild pulm vascular congestion and some atelectatic changes in the left lung b ase. Comorbidities include diabetes mellitus type 2, coronary artery disease, hypertension, hyperlipidemia, hypothyroidism, history of a flutter and CHF with impaired LV function. On 01/19/2025, the patient is being seen for a follow-up. The patient continues to have episodes of nausea. She had limited oral intake earlier this morning and she had another bout of emesis. She remains on oxygen at 2 L/min nasal cannula with a pulse ox of 99%. She was treated for an acute DKA and the patient was taken off the insulin drip and the patient was transition to long- acting insulin the patient is currently on Lantus insulin 30 units daily and NovoLog 8 units with meals and sliding scale coverage. Noted the patient has been able to eat properly due to persistent nausea for which the patient is r eceiving Zofran. She remains on D5 half-normal saline at rate of 50 cc an hour. The most recent blood work shows a sodium level of 131, serum bicarbonate 20 with a gap of 7. BUN 26 with a creatinine 0.9. Blood sugars remain somewhat elevated at 309. The patient's HbA1c came back at 10. LFTs are normal. The white cell count is 14.1. Hemoglobin 9.8 and a platelet count of 241. On a separate note, the patient had an acute NSTEMI and troponin peaked at 38 and the patient remains on IV heparin. She denies having any chest pain. The cardiac rhythm remained sinus. Repeat chest x-ray was done today and the patient continues to have cardiomegaly with mild pulmonary vascular congestion. C ardiology is on the case. The patient is being treated medically and no plans for any intervention for now. Objective - Vital Signs Vital signs: Vital Signs Temp 97.7 F 01/19/25 08:00 Pulse 86 01/19/25 10:00 Resp 22 01/19/25 10:00 BP 125/47 01/19/25 10:00 Pulse Ox 100 01/19/25 10:00 FiO2 Intake & Output 01/18/25 01/19/25 01/19/25 18:59 06:59 18:59 Intake Total 659.663 833.263 200 Output Total 400 200 100 Balance 259.663 633.263 100 Weight 90.2 kg 92.7 kg Intake: IV 600 600 200 D5-0.45% NaCl with KCl 600 600 200 20Meq/l 1,000 ml @ 50 mls /hr IV .Q20H NATHAN Rx#: [id number] Intake, IV Titration 59.663 233.263 Amount Heparin Sod,Pork in 0.45% 233.263 NaCl 25,000 unit In 0.45 % NaCl 1 250ml.bag @ 11. 02 UNITS/KG/HR 9.997 mls/ hr IV .Q24H NATHAN Rx#: [id number] Insulin Regular 100 unit 59.663 In Sodium Chloride 0.9% 100 ml @ 0.1 UNITS/KG/HR 9.163 mls/hr IV .Q11H2M NATHAN Rx#:[id number] Output: Urine 400 200 100 Other: Voiding Method External Catheter External Catheter External Catheter # Voids 1 - Exam The patient appeared well nourished and normally developed. Vital signs as documented. She is comfortable on 2 Liters/min, obese with a BMI of 38 Head exam is unremarkable. No scleral icterus or corneal arcus noted. Neck is without jugular venous distension, thyromegaly, or carotid bruits. Carotid upstrokes are brisk bilaterally. Lungs are clear to auscultation and percussion. Cardiac exam reveals the PMI to be normally sized and situated. Rhythm is regular. First and second heart sounds normal. No murmurs, rubs or gallops. Abdominal exam reveals normal bowel sounds, no masses, no organomegaly and no aortic enlargement. Extremities are nonedematous and both femoral and pedal pulses are normal. Examination of the skin revealed no evidence of significant rashes, suspicious appearing nevi or other concerning lesions. Neurologically, the patient is awake and alert and the patient does not have any focal neurological deficit. Cranial nerves are essentially intact. - Labs CBC & Chem 7: 01/19/25 07:01 01/19/25 07:01 Labs: Abnormal Lab Results - Last 24 Hours (Table) 01/18/25 01/18/25 01/18/25 Range/Units 10:53 11:05 12:01 WBC (4.50-10.00) 10*3/uL RBC (4.10-5.20) 10*6/uL Hgb (12.0-15.0) g/dL Hct (37.2-46.3) % MCH (27.0-32.0) pg MCHC (32.0-37.0) g/dL Immature Gran # (0.00-0.04) 10*3/uL Neutrophils # (1.80-7.70) 10*3/uL Monocytes # (0.20-1.00) 10*3/uL Eosinophils # (0.04-0.35) 10*3/uL APTT (22.0-30.0) sec Sodium (137-145) mmol/L Carbon Dioxide (22-30) mmol/L BUN (7-17) mg/dL Glucose (74-99) mg/dL POC Glucose (mg/dL) 143 H 126 H (70-110) mg/dL Hemoglobin A1c (<=6.0) % Plasma Lactic Acid Kilo (0.7-2.0) mmol/L Phosphorus (2.5-4.5) mg/dL AST (14-36) U/L Troponin I 30.900 H* (0.000-0.034) ng/mL Total Protein (6.3-8.2) g/dL Albumin (3.5-5.0) g/dL Ur Specific [place] (1.001-1.035) Urine Glucose (UA) (Negative) Urine Ketones (Negative) Urine Bilirubin (Negative) Ur Leukocyte Esterase (Negative) Urine RBC (0-5) /hpf Ur Squamous Epith Cells (0-4) /hpf Urine Bacteria (None) /hpf Urine Yeast (Budding) (None) /hpf 01/18/25 01/18/25 01/18/25 Range/Units 12:25 13:19 13:19 WBC (4.50-10.00) 10*3/uL RBC (4.10-5.20) 10*6/uL Hgb (12.0-15.0) g/dL Hct (37.2-46.3) % MCH (27.0-32.0) pg MCHC (32.0-37.0) g/dL Immature Gran # (0.00-0.04) 10*3/uL Neutrophils # (1.80-7.70) 10*3/uL Monocytes # (0.20-1.00) 10*3/uL Eosinophils # (0.04-0.35) 10*3/uL APTT 44.2 H (22.0-30.0) sec Sodium (137-145) mmol/L Carbon Dioxide (22-30) mmol/L BUN (7-17) mg/dL Glucose (74-99) mg/dL POC Glucose (mg/dL) (70-110) mg/dL Hemoglobin A1c (<=6.0) % Plasma Lactic Acid Kilo (0.7-2.0) mmol/L Phosphorus (2.5-4.5) mg/dL AST (14-36) U/L Troponin I 38.900 H* (0.000-0.034) ng/mL Total Protein (6.3-8.2) g/dL Albumin (3.5-5.0) g/dL Ur Specific [place] 1.050 H (1.001-1.035) Urine Glucose (UA) 4+ H (Negative) Urine Ketones 1+ H (Negative) Urine Bilirubin 1+ H (Negative) Ur Leukocyte Esterase Trace H (Negative) Urine RBC 64 H (0-5) /hpf Ur Squamous Epith Cells 6 H (0-4) /hpf Urine Bacteria Rare H (None) /hpf Urine Yeast (Budding) Many H (None) /hpf 01/18/25 01/18/25 01/18/25 Range/Units 13:19 13:19 13:19 WBC (4.50-10.00) 10*3/uL RBC (4.10-5.20) 10*6/uL Hgb (12.0-15.0) g/dL Hct (37.2-46.3) % MCH (27.0-32.0) pg MCHC (32.0-37.0) g/dL Immature Gran # (0.00-0.04) 10*3/uL Neutrophils # (1.80-7.70) 10*3/uL Monocytes # (0.20-1.00) 10*3/uL Eosinophils # (0.04-0.35) 10*3/uL APTT (22.0-30.0) sec Sodium (137-145) mmol/L Carbon Dioxide 34 H (22-30) mmol/L BUN 25 H (7-17) mg/dL Glucose 176 H (74-99) mg/dL POC Glucose (mg/dL) (70-110) mg/dL Hemoglobin A1c (<=6.0) % Plasma Lactic Acid Kilo 3.0 H* (0.7-2.0) mmol/L Phosphorus 2.3 L (2.5-4.5) mg/dL AST (14-36) U/L Troponin I (0.000-0.034) ng/mL Total Protein (6.3-8.2) g/dL Albumin (3.5-5.0) g/dL Ur Specific [place] (1.001-1.035) Urine Glucose (UA) (Negative) Urine Ketones (Negative) Urine Bilirubin (Negative) Ur Leukocyte Esterase (Negative) Urine RBC (0-5) /hpf Ur Squamous Epith Cells (0-4) /hpf Urine Bacteria (None) /hpf Urine Yeast (Budding) (None) /hpf 01/18/25 01/18/25 01/18/25 Range/Units 14:05 14:34 15:16 WBC (4.50-10.00) 10*3/uL RBC (4.10-5.20) 10*6/uL Hgb (12.0-15.0) g/dL Hct (37.2-46.3) % MCH (27.0-32.0) pg MCHC (32.0-37.0) g/dL Immature Gran # (0.00-0.04) 10*3/uL Neutrophils # (1.80-7.70) 10*3/uL Monocytes # (0.20-1.00) 10*3/uL Eosinophils # (0.04-0.35) 10*3/uL APTT (22.0-30.0) sec Sodium (137-145) mmol/L Carbon Dioxide (22-30) mmol/L BUN (7-17) mg/dL Glucose (74-99) mg/dL POC Glucose (mg/dL) 171 H 214 H 188 H (70-110) mg/dL Hemoglobin A1c (<=6.0) % Plasma Lactic Acid Kilo (0.7-2.0) mmol/L Phosphorus (2.5-4.5) mg/dL AST (14-36) U/L Troponin I (0.000-0.034) ng/mL Total Protein (6.3-8.2) g/dL Albumin (3.5-5.0) g/dL Ur Specific [place] (1.001-1.035) Urine Glucose (UA) (Negative) Urine Ketones (Negative) Urine Bilirubin (Negative) Ur Leukocyte Esterase (Negative) Urine RBC (0-5) /hpf Ur Squamous Epith Cells (0-4) /hpf Urine Bacteria (None) /hpf Urine Yeast (Budding) (None) /hpf 01/18/25 01/18/25 01/18/25 Range/Units 16:05 16:28 17:03 WBC (4.50-10.00) 10*3/uL RBC (4.10-5.20) 10*6/uL Hgb (12.0-15.0) g/dL Hct (37.2-46.3) % MCH (27.0-32.0) pg MCHC (32.0-37.0) g/dL Immature Gran # (0.00-0.04) 10*3/uL Neutrophils # (1.80-7.70) 10*3/uL Monocytes # (0.20-1.00) 10*3/uL Eosinophils # (0.04-0.35) 10*3/uL APTT (22.0-30.0) sec Sodium (137-145) mmol/L Carbon Dioxide (22-30) mmol/L BUN (7-17) mg/dL Glucose (74-99) mg/dL POC Glucose (mg/dL) 221 H 242 H (70-110) mg/dL Hemoglobin A1c (<=6.0) % Plasma Lactic Acid Kilo 3.2 H* (0.7-2.0) mmol/L Phosphorus (2.5-4.5) mg/dL AST (14-36) U/L Troponin I (0.000-0.034) ng/mL Total Protein (6.3-8.2) g/dL Albumin (3.5-5.0) g/dL Ur Specific [place] (1.001-1.035) Urine Glucose (UA) (Negative) Urine Ketones (Negative) Urine Bilirubin (Negative) Ur Leukocyte Esterase (Negative) Urine RBC (0-5) /hpf Ur Squamous Epith Cells (0-4) /hpf Urine Bacteria (None) /hpf Urine Yeast (Budding) (None) /hpf 01/18/25 01/18/25 01/19/25 Range/Units 20:28 21:36 06:40 WBC (4.50-10.00) 10*3/uL RBC (4.10-5.20) 10*6/uL Hgb (12.0-15.0) g/dL Hct (37.2-46.3) % MCH (27.0-32.0) pg MCHC (32.0-37.0) g/dL Immature Gran # (0.00-0.04) 10*3/uL Neutrophils # (1.80-7.70) 10*3/uL Monocytes # (0.20-1.00) 10*3/uL Eosinophils # (0.04-0.35) 10*3/uL APTT (22.0-30.0) sec Sodium 132 L (137-145) mmol/L Carbon Dioxide 19 L (22-30) mmol/L BUN 25 H (7-17) mg/dL Glucose 298 H (74-99) mg/dL POC Glucose (mg/dL) 291 H 398 H (70-110) mg/dL Hemoglobin A1c (<=6.0) % Plasma Lactic Acid Kilo (0.7-2.0) mmol/L Phosphorus (2.5-4.5) mg/dL AST (14-36) U/L Troponin I (0.000-0.034) ng/mL Total Protein (6.3-8.2) g/dL Albumin (3.5-5.0) g/dL Ur Specific [place] (1.001-1.035) Urine Glucose (UA) (Negative) Urine Ketones (Negative) Urine Bilirubin (Negative) Ur Leukocyte Esterase (Negative) Urine RBC (0-5) /hpf Ur Squamous Epith Cells (0-4) /hpf Urine Bacteria (None) /hpf Urine Yeast (Budding) (None) /hpf 01/19/25 01/19/25 01/19/25 Range/Units 07:01 07:01 07:01 WBC (4.50-10.00) 10*3/uL RBC (4.10-5.20) 10*6/uL Hgb (12.0-15.0) g/dL Hct (37.2-46.3) % MCH (27.0-32.0) pg MCHC (32.0-37.0) g/dL Immature Gran # (0.00-0.04) 10*3/uL Neutrophils # (1.80-7.70) 10*3/uL Monocytes # (0.20-1.00) 10*3/uL Eosinophils # (0.04-0.35) 10*3/uL APTT 50.8 H (22.0-30.0) sec Sodium 131 L (137-145) mmol/L Carbon Dioxide 20 L (22-30) mmol/L BUN 26 H (7-17) mg/dL Glucose 393 H (74-99) mg/dL POC Glucose (mg/dL) (70-110) mg/dL Hemoglobin A1c 10.0 H (<=6.0) % Plasma Lactic Acid Kilo (0.7-2.0) mmol/L Phosphorus (2.5-4.5) mg/dL AST 107 H (14-36) U/L Troponin I (0.000-0.034) ng/mL Total Protein 6.2 L (6.3-8.2) g/dL Albumin 3.1 L (3.5-5.0) g/dL Ur Specific [place] (1.001-1.035) Urine Glucose (UA) (Negative) Urine Ketones (Negative) Urine Bilirubin (Negative) Ur Leukocyte Esterase (Negative) Urine RBC (0-5) /hpf Ur Squamous Epith Cells (0-4) /hpf Urine Bacteria (None) /hpf Urine Yeast (Budding) (None) /hpf 01/19/25 Range/Units 07:01 WBC 14.15 H (4.50-10.00) 10*3/uL RBC 3.87 L (4.10-5.20) 10*6/uL Hgb 9.8 L (12.0-15.0) g/dL Hct 32.6 L (37.2-46.3) % MCH 25.3 L (27.0-32.0) pg MCHC 30.1 L (32.0-37.0) g/dL Immature Gran # 0.07 H (0.00-0.04) 10*3/uL Neutrophils # 11.41 H (1.80-7.70) 10*3/uL Monocytes # 1.10 H (0.20-1.00) 10*3/uL Eosinophils # 0.00 L (0.04-0.35) 10*3/uL APTT (22.0-30.0) sec Sodium (137-145) mmol/L Carbon Dioxide (22-30) mmol/L BUN (7-17) mg/dL Glucose (74-99) mg/dL POC Glucose (mg/dL) (70-110) mg/dL Hemoglobin A1c (<=6.0) % Plasma Lactic Acid Kilo (0.7-2.0) mmol/L Phosphorus (2.5-4.5) mg/dL AST (14-36) U/L Troponin I (0.000-0.034) ng/mL Total Protein (6.3-8.2) g/dL Albumin (3.5-5.0) g/dL Ur Specific [place] (1.001-1.035) Urine Glucose (UA) (Negative) Urine Ketones (Negative) Urine Bilirubin (Negative) Ur Leukocyte Esterase (Negative) Urine RBC (0-5) /hpf Ur Squamous Epith Cells (0-4) /hpf Urine Bacteria (None) /hpf Urine Yeast (Budding) (None) /hpf Assessment and Plan Plan: Acute NSTEMI, troponin peaked at 38 and the patient remains on aspirin and IV heparin.The patient is also on metoprolol 25 mg p.o. twice daily. Cardiology on the case. Awaiting repeat echocardiogram. May possibly need another cardiac catheterization. Acute DKA with anion gap metabolic acidosis and hyperglycemia, resuscitated with IV fluids and insulin drip with subsequent closure of the anion gap. The patient has been transition to long-acting insulin and the patient is currently on Lantus 30 units daily. No significant electrolyte abnormalities at this point. Coronary artery disease with recent cardiac catheterization in November 2024, 20 to 30% left main disease, 40 to 50% mid LAD disease and 100% proximal RCA. The patient also had collaterals from left to right and the patient was offered medical management Systolic heart failure, likely ischemic with an EF of around 20 to 25%, based on echo from November 2024 and EF of around 10 to 15%. An echo in July 2024 Persistent nausea and emesis, could be related to myocardial ischemia. CAT scan of the abdomen is negative and the patient has a large hiatal hernia. Currently on Zofran and the patient continues to have ongoing episodes of nausea and emesis. Consider cardiac ischemia contributing to her ongoing nausea. Diabetes mellitus type 2 maintained on Lantus insulin 24 units daily in addition to sliding scale coverage Lactic acidosis, improving Hypertension Hypothyroidism maintained on Synthroid History of atrial flutter, current cardiac rhythm is sinus with a intraventricular conduction delay and right axis deviation. The patient is maintained on a combination of metoprolol and Eliquis on outpatient basis Chronic hypoxic respiratory failure maintained on O2 at 2 L/min nasal cannula Spondylosis of the lumbar spine Obesity with a BMI of 38.8 Hyperlipidemia Plan Keep the patient in the intensive care unit Continue aspirin and IV heparin Repeat echocardiogram is pending Reconsult cardiology the patient may benefit from another cardiac catheterization as the patient sustained another acute NSTEMI Continue metoprolol 25 mg p.o. twice a day High-dose statins 80 mg Lipitor on a daily basis Management of CHF per cardiology. Management of DKA. Anion gap is closed and the patient can be transition to l vinnie-acting insulin. The patient is currently on Lantus 30 units daily and D5 half-normal saline at rate of 50 cc an hour. Hourly monitoring of blood sugars Zofran for nausea Condition is critical and the patient will be maintained in the intensive care unit. Will continue to follow. This evaluation was done more than 35 minutes. Time with Patient: Greater than 30
[2025-01-19] MEDS: SODIUM CHLORIDE 0.9% 500 ML 500 ML IV ONE ×2 (17:24→23:57)
--- NOTE | 2025-01-19 17:27 | XR ---
EXAMINATION TYPE: XR chest 1V portable DATE OF EXAM: 01/19/2025 5:03 PM COMPARISON: 01/19/2025 CLINICAL INDICATION: Female, 69 years old with history of SOB, TECHNIQUE: XR chest 1V portable view(s) obtained. FINDINGS: The heart size is enlarged. The pulmonary vasculature is prominent. Minimal infiltrates may be present. Correlate for pulmonary edema may be greater in the left lower lo be. There is silhouetting left diaphragm. IMPRESSION: 1. Left lower lobe infiltrate with some mild scattered infiltrates. Correlate for pulmonary edema and CHF. Atelectasis and pneumonia could be considered. [facility], , 01/19/2025 5:25 PM
[2025-01-19] MEDS ORDERED: INSULIN LISPRO (HumaLOG) 100 UNIT/ML 10 mL VL SQ SCH (17:30)
--- NOTE | 2025-01-19 17:30 | CT ---
EXAMINATION TYPE: CT brain wo con DATE OF EXAM: 01/19/2025 5:16 PM COMPARISON: None. CLINICAL INDICATION: Female, 69 years old with history of AMS, AMS. TECHNIQUE: CT of the brain is performed utilizing 3 mm thick sections through the posterior fossa and 3 mm thick sections through the remaining calvarium. Study is performed within 24 hours of arrival to the hospital. Contrast used: mL of , (none if empty) CT DLP: 1125.4 mGycm, Automated exposure control for dose reduction was used. FINDINGS: No abnormal hyperdensity is present to suggest an acute intracranial hemorrhage. No mass lesion is evident. No acute infarcts are evident. Periventricular white matter hypodensity is present, likely on the bas is of chronic white matter ischemic changes. Ventricles and sulci are appropriate for the patient age. Paranasal sinuses and mastoid air cells within the [id number] are clear. IMPRESSION: 1. No acute intracranial process. Follow up MRI can be performed as clinically indicated. 2. Chronic appearing periventricular white matter ischemic type changes. [facility], , 01/19/2025 5:27 PM
[2025-01-19 17:36] LABS: Basophils # (A) 0.02 10*3/uL (0.00-0.10); Basophils % (A) 0.2 %; Eosinophils # (A) 0.00 10*3/uL (0.04-0.35); Eosinophils % (A) 0.0 %; HCT 32.1 % (37.2-46.3); HGB 9.8 g/dL (12.0-15.0); Lymphocytes # (A) 1.82 10*3/uL (0.90-5.00); Lymphocytes % (A) 17.0 %; MCH 25.7 pg (27.0-32.0); MCHC 30.5 g/dL (32.0-37.0); MCV 84.0 fL (80.0-97.0); Monocytes # (A) 0.99 10*3/uL (0.20-1.00); Monocytes % (A) 9.2 %; Neutrophils # (A) 7.84 10*3/uL (1.80-7.70); Neutrophils % (A) 73.2 %; Platelet Count 232 10*3/uL (140-440); RBC 3.82 10*6/uL (4.10-5.20); RDW 19.4 % (11.5-14.5); WBC 10.71 10*3/uL (4.50-10.00)
[2025-01-19 18:05] LABS: ALT 14 U/L (4-34); AST 97 U/L (14-36); African American GFR (CKD) 81 (>60 ml/min/1.73 sqM); Albumin 3.3 g/dL (3.5-5.0); Alkaline Phosphatase 108 U/L (38-126); Anion Gap 8 mmol/L; Blood Urea Nitrogen 23 mg/dL (7-17); Calcium 9.1 mg/dL (8.4-10.2); Carbon Dioxide 21 mmol/L (22-30); Chloride 102 mmol/L (98-107); Glucose 298 mg/dL (74-99); Non-African American GFR(CKD) 70 (>60 ml/min/1.73 sqM); Potassium 4.8 mmol/L (3.5-5.1); Sodium 131 mmol/L (137-145); Total Protein 6.7 g/dL (6.3-8.2)
[2025-01-19] MEDS ORDERED: DEXTROSE 50% SYRINGE 50 ML IVP PRN ×2 (18:12)
[2025-01-19 18:36] LABS: NT-Pro-B-Type Natriuretic Pept 29000 pg/mL
[2025-01-19 19:04] LABS: Glucose,Whole Blood 308 mg/dL (70-110)
[2025-01-19] MEDS: INSULIN REGULAR 100 UNIT in SODIUM CHLORIDE 0.9% 100 ML IV SCH (19:05)
[2025-01-19] MEDS: HYDROcodone/APAP 10-325MG 1 EACH TAB PO PRN (19:47)
[2025-01-19 20:18] LABS: Glucose,Whole Blood 277 mg/dL (70-110)
[2025-01-19] MEDS ORDERED: INSULIN GLARGINE (LANTUS) 100 UNIT/ML SYR SQ SCH (21:00)
[2025-01-19 21:05] LABS: Glucose,Whole Blood 283 mg/dL (70-110)
[2025-01-19 22:14] LABS: Glucose,Whole Blood 209 mg/dL (70-110)
[2025-01-19 23:11] LABS: Glucose,Whole Blood 127 mg/dL (70-110)
[2025-01-19 23:39] LABS: Glucose,Whole Blood 110 mg/dL (70-110)
[2025-01-19] MEDS: SODIUM CHLORIDE 0.9% 1,000 ML IV SCH (23:55)
[2025-01-19 23:58] LABS: Glucose,Whole Blood 105 mg/dL (70-110)
[2025-01-20 01:08] LABS: Glucose,Whole Blood 148 mg/dL (70-110)
[2025-01-20 02:04] LABS: Glucose,Whole Blood 144 mg/dL (70-110)
[2025-01-20 03:08] LABS: Glucose,Whole Blood 193 mg/dL (70-110)
[2025-01-20 04:04] LABS: Basophils # (A) 0.03 10*3/uL (0.00-0.10); Basophils % (A) 0.4 %; Eosinophils # (A) 0.02 10*3/uL (0.04-0.35); Eosinophils % (A) 0.3 %; HCT 31.7 % (37.2-46.3); HGB 9.1 g/dL (12.0-15.0); Lymphocytes # (A) 1.69 10*3/uL (0.90-5.00); Lymphocytes % (A) 21.9 %; MCH 25.0 pg (27.0-32.0); MCHC 28.7 g/dL (32.0-37.0); MCV 87.1 fL (80.0-97.0); Monocytes # (A) 0.60 10*3/uL (0.20-1.00); Monocytes % (A) 7.8 %; Neutrophils # (A) 5.36 10*3/uL (1.80-7.70); Neutrophils % (A) 69.3 %; Platelet Count 184 10*3/uL (140-440); RBC 3.64 10*6/uL (4.10-5.20); RDW 19.6 % (11.5-14.5); WBC 7.72 10*3/uL (4.50-10.00)
[2025-01-20 04:09] LABS: ALT 12 U/L (4-34); AST 67 U/L (14-36); African American GFR (CKD) 90 (>60 ml/min/1.73 sqM); Albumin 2.9 g/dL (3.5-5.0); Alkaline Phosphatase 99 U/L (38-126); Anion Gap 8 mmol/L; Blood Urea Nitrogen 21 mg/dL (7-17); Calcium 8.9 mg/dL (8.4-10.2); Carbon Dioxide 20 mmol/L (22-30); Chloride 103 mmol/L (98-107); Glucose 171 mg/dL (74-99); Magnesium 1.8 mg/dL (1.6-2.3); Non-African American GFR(CKD) 78 (>60 ml/min/1.73 sqM); Potassium 4.2 mmol/L (3.5-5.1); Sodium 131 mmol/L (137-145); Total Protein 6.0 g/dL (6.3-8.2)
[2025-01-20 04:20] LABS: Glucose,Whole Blood 164 mg/dL (70-110)
[2025-01-20 05:16] LABS: Glucose,Whole Blood 144 mg/dL (70-110)
[2025-01-20 06:27] LABS: Glucose,Whole Blood 94 mg/dL (70-110)
[2025-01-20] MEDS: PANTOPRAZOLE 40 MG TABLET PO SCH (06:55)
[2025-01-20 07:11] LABS: Glucose,Whole Blood 94 mg/dL (70-110)
[2025-01-20] MEDS: INSULIN LISPRO (HumaLOG) 100 UNIT/ML 10 mL VL SQ SCH (07:17)
--- NOTE | 2025-01-20 09:39 | P.PN ---
Subjective Progress Note Date: 01/20/25 The patient is a 69-year-old female who follows in the office with Dr. Elkins. She was admitted to the hospital with nausea and vomiting, secondary to diabetic ketoacidosis. Cardiology has been consulted as she had elevated troponin. Patient has a known history of coronary artery disease with recent c oronary angiogram in November showing intermediate to severe disease with right to left collaterals. Limited echocardiogram in November showed ejection fraction of 25% Patient states she did well overnight. She states she is feeling much better today, now that she is no longer acidotic and her blood sugars are better controlled. She is starting clear liquids. No chest pain or pressure. No difficulty breathing. GENERAL: Well-appearing, well-nourished and in no acute distress. NECK: Supple without JVD or thyromegaly. LUNGS: Breath sounds clear to auscultation bilaterally. Respiration equal and unlabored. No wheezes, rales or rhonchi. HEART: Regular rate and rhythm without murmurs, rubs or gallops. S1 and S2 heard. EXTREMITIES: Normal range of motion, no edema. No clubbing or cyanosis. Periphe ral pulses intact and strong. TELEMETRY: Sinus rhythm overnight LABS: WBC 7.7, hemoglobin 9.1, hematocrit 31.7, platelet 184, sodium 131, BUN 21, creatinine 0.77, magnesium 1.8, AST 67, ALT 12, hemoglobin A1c 10 IMPRESSION: Nausea and vomiting DKA Non-STEMI Coronary artery disease with previous PCI Ischemic cardiomyopathy, EF 25% Hypertension Hyperlipidemia History of diabetes History of hypothyroidism History of atrial flutter History of congestive heart failure with reduced EF PLAN: Continue supportive treatment for DKA Continue heparin drip Coronary angiogram to assess progression of coronary artery disease. Will discuss timing with interventionalist. I am dictating on behalf of Dr Dylon Boone's history/physical and assessment/plan. Objective - Vital Signs Vital signs: Vital Signs Temp 98.2 F 01/20/25 00:00 Pulse 77 01/20/25 07:00 Resp 23 01/20/25 07:00 BP 107/53 01/20/25 07:00 Pulse Ox 100 01/20/25 07:00 FiO2 Intake & Output 01/19/25 01/20/25 01/20/25 18:59 06:59 18:59 Intake Total 1150 1047.343 339.313 Output Total 250 375 0 Balance 900 672.343 339.313 Weight 92.7 kg 94.7 kg Intake: IV 1150 800 75 D5-0.45% NaCl with KCl 550 20Meq/l 1,000 ml @ 50 mls /hr IV .Q20H [facility] Rx#: [id number] Magnesium Sulfate-D5w Pmx 100 1 gm In Dextrose/Water 1 100ml.bag @ 100 mls/hr IVPB ONCE ONE Rx#: [id number] Sodium Chloride 0.9% 1, 500 500 000 ml @ 500 mls/hr IV . Q2H ONE Rx#:[id number] Sodium Chloride 0.9% 1, 300 75 000 ml @ 75 mls/hr IV . [id number] [facility] Rx#:[id number] Intake, IV Titration 247.343 264.313 Amount Heparin Sod,Pork in 0.45% 250.00 NaCl 25,000 unit In 0.45 % NaCl 1 250ml.bag @ 11. 02 UNITS/KG/HR 9.997 mls/ hr IV .Q24H [facility] Rx#: [id number] Insulin Regular 100 unit 22.343 14.313 In Sodium Chloride 0.9% 100 ml @ Titrate IV .Q0M [facility] Rx#:[id number] Sodium Chloride 0.9% 1, 225 000 ml @ 75 mls/hr IV . [id number] [facility] Rx#:[id number] Output: Urine 250 375 0 Other: Voiding Method External Catheter External Catheter # Voids 0 0 - Labs CBC & Chem 7: 01/20/25 03:26 01/20/25 03:34 Labs: Abnormal Lab Results - Last 24 Hours (Table) 01/19/25 01/19/25 01/19/25 Range/Units 07:01 12:40 16:29 WBC (4.50-10.00) 10*3/uL RBC (4.10-5.20) 10*6/uL Hgb (12.0-15.0) g/dL Hct (37.2-46.3) % MCH (27.0-32.0) pg MCHC (32.0-37.0) g/dL Neutrophils # (1.80-7.70) 10*3/uL Eosinophils # (0.04-0.35) 10*3/uL APTT (22.0-30.0) sec Sodium (137-145) mmol/L Carbon Dioxide (22-30) mmol/L BUN (7-17) mg/dL Glucose (74-99) mg/dL POC Glucose (mg/dL) 309 H 332 H (70-110) mg/dL Hemoglobin A1c 10.0 H (<=6.0) % AST (14-36) U/L Total Protein (6.3-8.2) g/dL Albumin (3.5-5.0) g/dL 01/19/25 01/19/25 01/19/25 Range/Units 17:28 17:28 19:02 WBC 10.71 H (4.50-10.00) 10*3/uL RBC 3.82 L (4.10-5.20) 10*6/uL Hgb 9.8 L (12.0-15.0) g/dL Hct 32.1 L (37.2-46.3) % MCH 25.7 L (27.0-32.0) pg MCHC 30.5 L (32.0-37.0) g/dL Neutrophils # 7.84 H (1.80-7.70) 10*3/uL Eosinophils # 0.00 L (0.04-0.35) 10*3/uL APTT (22.0-30.0) sec Sodium 131 L (137-145) mmol/L Carbon Dioxide 21 L (22-30) mmol/L BUN 23 H (7-17) mg/dL Glucose 298 H (74-99) mg/dL POC Glucose (mg/dL) 308 H (70-110) mg/dL Hemoglobin A1c (<=6.0) % AST 97 H (14-36) U/L Total Protein (6.3-8.2) g/dL Albumin 3.3 L (3.5-5.0) g/dL 01/19/25 01/19/25 01/19/25 Range/Units 20:16 21:04 22:13 WBC (4.50-10.00) 10*3/uL RBC (4.10-5.20) 10*6/uL Hgb (12.0-15.0) g/dL Hct (37.2-46.3) % MCH (27.0-32.0) pg MCHC (32.0-37.0) g/dL Neutrophils # (1.80-7.70) 10*3/uL Eosinophils # (0.04-0.35) 10*3/uL APTT (22.0-30.0) sec Sodium (137-145) mmol/L Carbon Dioxide (22-30) mmol/L BUN (7-17) mg/dL Glucose (74-99) mg/dL POC Glucose (mg/dL) 277 H 283 H 209 H (70-110) mg/dL Hemoglobin A1c (<=6.0) % AST (14-36) U/L Total Protein (6.3-8.2) g/dL Albumin (3.5-5.0) g/dL 01/19/25 01/20/25 01/20/25 Range/Units 23:10 01:07 02:02 WBC (4.50-10.00) 10*3/uL RBC (4.10-5.20) 10*6/uL Hgb (12.0-15.0) g/dL Hct (37.2-46.3) % MCH (27.0-32.0) pg MCHC (32.0-37.0) g/dL Neutrophils # (1.80-7.70) 10*3/uL Eosinophils # (0.04-0.35) 10*3/uL APTT (22.0-30.0) sec Sodium (137-145) mmol/L Carbon Dioxide (22-30) mmol/L BUN (7-17) mg/dL Glucose (74-99) mg/dL POC Glucose (mg/dL) 127 H 148 H 144 H (70-110) mg/dL Hemoglobin A1c (<=6.0) % AST (14-36) U/L Total Protein (6.3-8.2) g/dL Albumin (3.5-5.0) g/dL 01/20/25 01/20/25 01/20/25 Range/Units 03:06 03:26 03:34 WBC (4.50-10.00) 10*3/uL RBC 3.64 L (4.10-5.20) 10*6/uL Hgb 9.1 L (12.0-15.0) g/dL Hct 31.7 L (37.2-46.3) % MCH 25.0 L (27.0-32.0) pg MCHC 28.7 L (32.0-37.0) g/dL Neutrophils # (1.80-7.70) 10*3/uL Eosinophils # 0.02 L (0.04-0.35) 10*3/uL APTT (22.0-30.0) sec Sodium 131 L (137-145) mmol/L Carbon Dioxide 20 L (22-30) mmol/L BUN 21 H (7-17) mg/dL Glucose 171 H (74-99) mg/dL POC Glucose (mg/dL) 193 H (70-110) mg/dL Hemoglobin A1c (<=6.0) % AST 67 H (14-36) U/L Total Protein 6.0 L (6.3-8.2) g/dL Albumin 2.9 L (3.5-5.0) g/dL 01/20/25 01/20/25 01/20/25 Range/Units 03:34 04:18 05:15 WBC (4.50-10.00) 10*3/uL RBC (4.10-5.20) 10*6/uL Hgb (12.0-15.0) g/dL Hct (37.2-46.3) % MCH (27.0-32.0) pg MCHC (32.0-37.0) g/dL Neutrophils # (1.80-7.70) 10*3/uL Eosinophils # (0.04-0.35) 10*3/uL APTT 80.2 H (22.0-30.0) sec Sodium (137-145) mmol/L Carbon Dioxide (22-30) mmol/L BUN (7-17) mg/dL Glucose (74-99) mg/dL POC Glucose (mg/dL) 164 H 144 H (70-110) mg/dL Hemoglobin A1c (<=6.0) % AST (14-36) U/L Total Protein (6.3-8.2) g/dL Albumin (3.5-5.0) g/dL
--- NOTE | 2025-01-20 09:51 | P.PN ---
Subjective Progress Note Date: 01/20/25 HISTORY OF PRESENT ILLNESS: This is a 69-year-old female with a previous medical history signif icant for hypertension and hypertensive cardiovascular disease, hyperlipidemia, hypothyroidism, chronic gastroesophageal reflux disease with esophagitis, type 1 diabetes mellitus currently on insulin pump, vitamin D deficiency, diabetic neuropathy, patient also had history of spondylosis of the lumbar spine status post lumbar laminectomy back in 07/01/2022 followed by a wound dehiscence at the [facility] of the lumbar area and she ended up going back for another surgical intervention 2022 followed by a wound care of the surgical site, patient recovered very well from that, patient apparently was recently hospitalized at [facility] for urine from August 21, 2024 till August 27, 2024 after she was admitted for what appears to be an unstable patient myocardial infarction status post left heart catheterization that showed evidence of 20 to 30% stenosis of the left main artery, 40 to 50% stenosis of the LAD where she had a previous stent, and 99% of the RCA with collaterals from left to right, no intervention was done, patient also did have acute blood loss anemia status post 1 unit of packed red blood cells procedure was seen in consultation by general surgery who is recommended not to do any intervention at this point in time, patient was last hospitalized on November 27, 2024 after she was admitted for non-ST elevation myocardial infarction and ischemic cardiomyopathy with ejection fraction of 10 to 15%, at that time she was sent back to endocrinology, patient was discharged recently, under the having an epidural injection. By the pain clinic on the of this month, apparently she continues to yesterday with intractable nausea and vomiting not able to keep anything down, she was not in diabetic status at that time, she was given IV fluid resuscitation, she was given some insulin, she was sent home as outpatient, patient became a lot worse, she was started intractable nausea and vomiting and she was not keeping anything down, she became quite weak in general fatigue and she was brought to the ER again and she was found to be diabeticwith a bicarb level of 8 she was also found to have a lactic acidosis of 5, she was given IV fluid resuscitation, she was found to have a troponin level of 2 she was admitted to the hospital intensive care unit with a diagnosis of diabetic acidosis and lactic acidosis with non-ST elevation myocardial function, with cardiology consultation as well as pulmonary consultation was obtained. 01/19: Patient is laying down in bed in no apparent distress, she denies any chest pain at this time, she has no shortness of breath, her troponin is quite elevated, she was seen in consultation by cardiology, she has been started back on her metoprolol 25 mg orally twice every day, baby aspirin 81 mg once every day, Lipitor 80 mg once every day, she has been on heparin drip, she was seen in consultation by cardiology she has ruled in non-ST elevation WI, patient's chest pain-free at this point in time, she has underlying ischemic cardiomyopathy with ejection fraction of 15 %, we will continue to follow-up with the patient he was transition to Lantus 25 units at bedtime along with a sliding scale insulin as her anion gap has closed. 01/20: Patient is laying in her bed in no apparent distress, she is feeling better today than yesterday, yesterday she became quite confused, ended up going for a CT scan of the brain that was negative for acute infarct or bleed, chest x-ray showed pulmonary vascular congestion and cardiomegaly, patient need to be started back on her diuretics in the form of torsemide as well as potassium supplement, she was started yesterday on insulin drip as well she was kept on heparin drip, continue current treatment plan, keep the patient in ICU for now REVIEW OF SYSTEMS: Constitutional: No documented fever, no chills, no night sweats. significant weight gain No weakness, fatigue or lethargy. No daytime sleepiness. HEENT: No headache. No blurred vision or double vision, no loss of vision. No loss of Hearing, no ringing in the ears, no dizziness. No nasal drainage or congestion. No epistaxis. No sore throat. Lungs: positive for shortness of breath, occasional cough, no sputum production. No wheezing. Reports dyspnea with activity, positive for orthopneam and PND Cardiovascular: No chest pain, positive for mild lower extremity edema. positive for palpitations. no paroxysmal nocturnal dyspnea. no orthopnea. No lightheadedness or dizziness. No syncopal episodes. Abdominal: Reports no abdominal pain. positive for nausea, vomiting. No diarrhea. No constipation. No bloody or tarry stools reports loss of appetite. Genitourinary: No dysuria, increased frequency, urgency. No urinary retention. Musculoskeletal: No myalgias. positive for muscle weakness, positive for gait dysfunction, no frequent falls. positive for back pain. No neck pain. Integumentary: No wounds, no lesions. No rash or pruritus. Positive for bruising to bilateral lower extremities. No change in hair or nails. Neurologic: No aphasia. No facial droop. No change in mentation. No head injury. No headache. Right lower extremity weakness, positive for paresthesia. Psychiatric: Positive depression. No anxiety. No mood swings. Endocrine: No abnormal blood sugars. No weight change. PHYSICAL EXAMINATION: General: this is a 69-year-old female laying down in bed in minimal distress HEENT: Head is atraumatic, normocephalic, pupils were equal round reactive to light and recommendation, extraocular muscle movement were intact, sclera nonicteric, conjunctivae were pale, mucous membranes of the mouth are somewhat dry. Neck: Supple, no JVP, normal carotid upstroke bilaterally, no lymphadenopathy. Chest: Decreased breath sounds at the bases, few rhonchi, no expiratory wheezes, no chest wall tenderness, no intercostal retractions Heart: First heart sound is normal, second heart sound is normal there is systolic ejection murmur 2/6 located in the left sternal border Abdomen: Soft, nontender, nondistended, positive bowel sounds. 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 Skin-Prep. ASSESSMENT AND PLAN: 1. Acute anion gap metabolic acidosis due to diabetic ketoacidosis as well as lactic acidosis patient was placed back on insulin drip at this point in time, we will try to transition back into insulin Lantus along with a sliding scale insulin. Patient is not eating much at this point in time 2. Acute non-ST elevation WI in a patient with prior history coronary artery disease status post PCI of the LAD with recent left heart catheterization that was done July 2024 that showed evidence of left main disease 20 to 30%, LAD 4050% stenosis where the stent is and RCA 99% stenosis with collaterals from left to right. Continue patient on metoprolol 25 mg orally twice every day, aspirin 81 mg once every day, also continue patient on atorvastatin 40 mg orally once every day, keep LDL 55-70 continue heparin drip. Cardiology consultation appreciated. 3. History of pulmonary embolism. Continue with heparin drip for now. 4. Paroxysmal atrial fibrillation/flutter. Continue patient on metoprolol 25 mg orally twice every day, continue heparin drip for now, 5. Hypertension and hypertensive cardiovascular disease. Continue patient on metoprolol 25 mg orally twice every day, losartan 100 mg orally once every day, monitor the patient blood pressure very closely. 6. Hyperlipidemia. continue atorvastatin 80 mg orally once every day, monitor the patient the benefit, keep LDL 55-70. 7. Hypothyroidism. Continue patient on Synthroid 112 g orally once every day monitor TSH and free T4. 8. Diabetes mellitus type 1. Mild. We will try to transition back to Lantus and sliding scale insulin 9. GERD with esophagitis and had a hernia. Continue patient on omeprazole 20 mg mg once every day along with Pepcid 20 mg orally twice every day. 10. Obesity with obstructive sleep apnea and possible obesity hypoventilation syndrome patient will need to have a sleep study as an outpatient. 11. Vitamin D deficiency. Continue vitamin D3 2000 units once every day. 12. History of kidney stones. stable at this time 13. DVT prophylaxis. Continue heparin drip for now. 14. GI prophylaxis. Continue omeprazole 20 mg orally once every day 15. Chronic low back pain due to spondylosis of the lumbar spine continue with hydrocodone as needed, Physical therapy evaluation. 16. History of gout. Continue patient on allopurinol 100 mg orally once every day. 17. Medical debility. Physical therapy evaluation. 18. Social consultation for discharge planning. Objective - Vital Signs Vital signs: Vital Signs Temp 98.2 F 01/20/25 00:00 Pulse 77 01/20/25 07:00 Resp 23 01/20/25 07:00 BP 107/53 01/20/25 07:00 Pulse Ox 100 01/20/25 07:00 FiO2 Intake & Output 01/19/25 01/20/25 01/20/25 18:59 06:59 18:59 Intake Total 1150 1047.343 339.313 Output Total 250 375 0 Balance 900 672.343 339.313 Weight 92.7 kg 94.7 kg Intake: IV 1150 800 75 D5-0.45% NaCl with KCl 550 20Meq/l 1,000 ml @ 50 mls /hr IV .Q20H [facility] Rx#: [id number] Magnesium Sulfate-D5w Pmx 100 1 gm In Dextrose/Water 1 100ml.bag @ 100 mls/hr IVPB ONCE ONE Rx#: [id number] Sodium Chloride 0.9% 1, 500 500 000 ml @ 500 mls/hr IV . Q2H ONE Rx#:[id number] Sodium Chloride 0.9% 1, 300 75 000 ml @ 75 mls/hr IV . [id number] [facility] Rx#:[id number] Intake, IV Titration 247.343 264.313 Amount Heparin Sod,Pork in 0.45% 250.00 NaCl 25,000 unit In 0.45 % NaCl 1 250ml.bag @ 11. 02 UNITS/KG/HR 9.997 mls/ hr IV .Q24H [facility] Rx#: [id number] Insulin Regular 100 unit 22.343 14.313 In Sodium Chloride 0.9% 100 ml @ Titrate IV .Q0M [facility] Rx#:[id number] Sodium Chloride 0.9% 1, 225 000 ml @ 75 mls/hr IV . [id number] [facility] Rx#:[id number] Output: Urine 250 375 0 Other: Voiding Method External Catheter External Catheter # Voids 0 0 - Labs CBC & Chem 7: 01/20/25 03:26 01/20/25 03:34 Labs: Abnormal Lab Results - Last 24 Hours (Table) 01/19/25 01/19/25 01/19/25 Range/Units 07:01 12:40 16:29 WBC (4.50-10.00) 10*3/uL RBC (4.10-5.20) 10*6/uL Hgb (12.0-15.0) g/dL Hct (37.2-46.3) % MCH (27.0-32.0) pg MCHC (32.0-37.0) g/dL Neutrophils # (1.80-7.70) 10*3/uL Eosinophils # (0.04-0.35) 10*3/uL APTT (22.0-30.0) sec Sodium (137-145) mmol/L Carbon Dioxide (22-30) mmol/L BUN (7-17) mg/dL Glucose (74-99) mg/dL POC Glucose (mg/dL) 309 H 332 H (70-110) mg/dL Hemoglobin A1c 10.0 H (<=6.0) % AST (14-36) U/L Total Protein (6.3-8.2) g/dL Albumin (3.5-5.0) g/dL 01/19/25 01/19/25 01/19/25 Range/Units 17:28 17:28 19:02 WBC 10.71 H (4.50-10.00) 10*3/uL RBC 3.82 L (4.10-5.20) 10*6/uL Hgb 9.8 L (12.0-15.0) g/dL Hct 32.1 L (37.2-46.3) % MCH 25.7 L (27.0-32.0) pg MCHC 30.5 L (32.0-37.0) g/dL Neutrophils # 7.84 H (1.80-7.70) 10*3/uL Eosinophils # 0.00 L (0.04-0.35) 10*3/uL APTT (22.0-30.0) sec Sodium 131 L (137-145) mmol/L Carbon Dioxide 21 L (22-30) mmol/L BUN 23 H (7-17) mg/dL Glucose 298 H (74-99) mg/dL POC Glucose (mg/dL) 308 H (70-110) mg/dL Hemoglobin A1c (<=6.0) % AST 97 H (14-36) U/L Total Protein (6.3-8.2) g/dL Albumin 3.3 L (3.5-5.0) g/dL 01/19/25 01/19/25 01/19/25 Range/Units 20:16 21:04 22:13 WBC (4.50-10.00) 10*3/uL RBC (4.10-5.20) 10*6/uL Hgb (12.0-15.0) g/dL Hct (37.2-46.3) % MCH (27.0-32.0) pg MCHC (32.0-37.0) g/dL Neutrophils # (1.80-7.70) 10*3/uL Eosinophils # (0.04-0.35) 10*3/uL APTT (22.0-30.0) sec Sodium (137-145) mmol/L Carbon Dioxide (22-30) mmol/L BUN (7-17) mg/dL Glucose (74-99) mg/dL POC Glucose (mg/dL) 277 H 283 H 209 H (70-110) mg/dL Hemoglobin A1c (<=6.0) % AST (14-36) U/L Total Protein (6.3-8.2) g/dL Albumin (3.5-5.0) g/dL 01/19/25 01/20/25 01/20/25 Range/Units 23:10 01:07 02:02 WBC (4.50-10.00) 10*3/uL RBC (4.10-5.20) 10*6/uL Hgb (12.0-15.0) g/dL Hct (37.2-46.3) % MCH (27.0-32.0) pg MCHC (32.0-37.0) g/dL Neutrophils # (1.80-7.70) 10*3/uL Eosinophils # (0.04-0.35) 10*3/uL APTT (22.0-30.0) sec Sodium (137-145) mmol/L Carbon Dioxide (22-30) mmol/L BUN (7-17) mg/dL Glucose (74-99) mg/dL POC Glucose (mg/dL) 127 H 148 H 144 H (70-110) mg/dL Hemoglobin A1c (<=6.0) % AST (14-36) U/L Total Protein (6.3-8.2) g/dL Albumin (3.5-5.0) g/dL 01/20/25 01/20/25 01/20/25 Range/Units 03:06 03:26 03:34 WBC (4.50-10.00) 10*3/uL RBC 3.64 L (4.10-5.20) 10*6/uL Hgb 9.1 L (12.0-15.0) g/dL Hct 31.7 L (37.2-46.3) % MCH 25.0 L (27.0-32.0) pg MCHC 28.7 L (32.0-37.0) g/dL Neutrophils # (1.80-7.70) 10*3/uL Eosinophils # 0.02 L (0.04-0.35) 10*3/uL APTT (22.0-30.0) sec Sodium 131 L (137-145) mmol/L Carbon Dioxide 20 L (22-30) mmol/L BUN 21 H (7-17) mg/dL Glucose 171 H (74-99) mg/dL POC Glucose (mg/dL) 193 H (70-110) mg/dL Hemoglobin A1c (<=6.0) % AST 67 H (14-36) U/L Total Protein 6.0 L (6.3-8.2) g/dL Albumin 2.9 L (3.5-5.0) g/dL 01/20/25 01/20/25 01/20/25 Range/Units 03:34 04:18 05:15 WBC (4.50-10.00) 10*3/uL RBC (4.10-5.20) 10*6/uL Hgb (12.0-15.0) g/dL Hct (37.2-46.3) % MCH (27.0-32.0) pg MCHC (32.0-37.0) g/dL Neutrophils # (1.80-7.70) 10*3/uL Eosinophils # (0.04-0.35) 10*3/uL APTT 80.2 H (22.0-30.0) sec Sodium (137-145) mmol/L Carbon Dioxide (22-30) mmol/L BUN (7-17) mg/dL Glucose (74-99) mg/dL POC Glucose (mg/dL) 164 H 144 H (70-110) mg/dL Hemoglobin A1c (<=6.0) % AST (14-36) U/L Total Protein (6.3-8.2) g/dL Albumin (3.5-5.0) g/dL
[2025-01-20 11:13] LABS: Glucose,Whole Blood 172 mg/dL (70-110)
[2025-01-20] MEDS: LACTATED RINGERS 500 ML IV ONE (14:35)
[2025-01-20] MEDS: HEPARIN SODIUM 1,000 UN/ML (10ML VL) IV PRN (14:36)
[2025-01-20 16:16] LABS: Glucose,Whole Blood 212 mg/dL (70-110)
[2025-01-20] MEDS: SODIUM CHLORIDE 0.9% 1,000 ML IV SCH (16:39)
--- NOTE | 2025-01-20 16:56 | P.PN ---
Subjective Progress Note Date: 01/20/25 This is a 69-year-old female patient being seen in the emergency department and the patient is going to be transferred to the ICU. The patient is known to have coronary artery disease and the patient has undergone recent cardiac catheterization in November 2024 revealing a 20 to 30% left main, 40 to 50% mid LAD, 100% proximal RCA with [id number] collaterals. Medical management was recommended. The patient also has cardiomyopathy with impaired LV function with an ejection fraction of 20 to 25% based on echocardiogram from November 2024. The patient was having persistent nausea and emesis on outpatient basis. She was unable to tolerate any form of oral intake and she quit taking her insulin the patient is diabetic. She used to be on insulin pump in the past and the patient is currently on Lantus insulin. Denies having any significant abdominal pain. She had been having emesis and nausea for the past 4 days at least. Based on that, the patient was came into the hospital and in the emergency department, the patient was found to have anion gap metabolic acidosis consistent with DKA. The patient had a serum bicarb of 7 with a gap of 36 and a blood sugar of 525. Normal renal function. Initial lactic acid level was at 4.5, troponin peaked at 38,000 consistent with acute non-ST segment elevation myocardial infarction. EKG from emergency department showed sinus rhythm with frequent ectopies, PVCs and interventricular conduction delay and right axis deviation. Accordingly, the patient was started on IV fluids. The patient was given a total of 2.5 L of normal saline and started on DKA protocol. The patient is currently on insulin drip for blood sugar control. Subsequent electrolytes showed improvement in the serum bicarb came up to 34 with a gap of 1 and the blood sugar is currently at 176. Lactic acid level dropped down to 3.2. The patient is awake and alert and communicating. Free of any chest pain. No ongoing nausea or emesis. She is also on IV heparin and cardiology consultation has been obtained. She remains on aspirin. She remains on metoprolol 25 mg p.o. twice daily. IV fluids has been switched to D5 half-normal saline which is currently running at a rate of 50 cc an hour. In terms of respiratory status, the patient is stable on 2 L of oxygen by nasal cannula with a pulse ox of 99%. CAT scan of the abdomen and pelvis showed normal appendix, normal bowel pattern, colonic diverticulosis and moderate degree of hiatal hernia. Chest x-ray showed moderate cardiomegaly with mild pulm vascular congestion and some atelectatic changes in the left lung b ase. Comorbidities include diabetes mellitus type 2, coronary artery disease, hypertension, hyperlipidemia, hypothyroidism, history of a flutter and CHF with impaired LV function. On 01/19/2025, the patient is being seen for a follow-up. The patient continues to have episodes of nausea. She had limited oral intake earlier this morning and she had another bout of emesis. She remains on oxygen at 2 L/min nasal cannula with a pulse ox of 99%. She was treated for an acute DKA and the patient was taken off the insulin drip and the patient was transition to long- acting insulin the patient is currently on Lantus insulin 30 units daily and NovoLog 8 units with meals and sliding scale coverage. Noted the patient has been able to eat properly due to persistent nausea for which the patient is r eceiving Zofran. She remains on D5 half-normal saline at rate of 50 cc an hour. The most recent blood work shows a sodium level of 131, serum bicarbonate 20 with a gap of 7. BUN 26 with a creatinine 0.9. Blood sugars remain somewhat elevated at 309. The patient's HbA1c came back at 10. LFTs are normal. The white cell count is 14.1. Hemoglobin 9.8 and a platelet count of 241. On a separate note, the patient had an acute NSTEMI and troponin peaked at 38 and the patient remains on IV heparin. She denies having any chest pain. The cardiac rhythm remained sinus. Repeat chest x-ray was done today and the patient continues to have cardiomegaly with mild pulmonary vascular congestion. C ardiology is on the case. The patient is being treated medically and no plans for any intervention for now. On 01/20/2025, the patient is being seen for a follow-up. Noted, the patient continues to have episodes of low urine output. The patient was given bolus of IV fluids yesterday for low urine output and low blood pressure. The patient received 500 cc of lactated Ringer bolus x 2. This afternoon, the patient developed again low urine output and the patient receiving another fluid bolus. Meanwhile, she is free of any chest pain. She is awake and alert. Denies having any significant shortness of breath. She remains on IV heparin. She is feeling less nauseated compared to yesterday. Noted the patient was having significant fluctuation in blood sugars. After being maintained on Lantus, the patient was taken off Lantus because of hyperglycemia and started on insulin drip and currently she is off the insulin drip and receiving only sliding scale insulin coverage. Electrolytes are stable. Sodium levels at 131, serum bicarb is 20 with a BUN of 21 and a creatinine of 0.7. WBC count is 7.7 with a hemoglobin 9.1 and a platelet count of 184. LFTs are normal. The patient rem ains on aspirin. The patient remains on IV heparin. The patient is also on metoprolol 25 mg p.o. twice a day. She is on Lipitor 80 mg p.o. daily. She is currently off diuretics. Cardiology is on the case regarding the acute NSTEMI. The chest x-ray from yesterday was consistent with cardiomegaly with mild pulm vessel congestion. Nevertheless, the patient's overall respiratory status is stable and the patient denies having any significant shortness of breath remains on 2 L of oxygen by nasal cannula with a pulse ox of 99%. Objective - Vital Signs Vital signs: Vital Signs Temp 98.2 F 01/20/25 00:00 Pulse 77 01/20/25 07:00 Resp 23 01/20/25 07:00 BP 107/53 01/20/25 07:00 Pulse Ox 100 01/20/25 07:00 FiO2 Intake & Output 01/19/25 01/20/25 01/20/25 18:59 06:59 18:59 Intake Total 1150 1047.343 339.313 Output Total 250 375 0 Balance 900 672.343 339.313 Weight 92.7 kg 94.7 kg Intake: IV 1150 800 75 D5-0.45% NaCl with KCl 550 20Meq/l 1,000 ml @ 50 mls /hr IV .Q20H [facility] Rx#: [id number] Magnesium Sulfate-D5w Pmx 100 1 gm In Dextrose/Water 1 100ml.bag @ 100 mls/hr IVPB ONCE [facility] Rx#: [id number] Sodium Chloride 0.9% 1, 500 500 000 ml @ 500 mls/hr IV . Q2H [facility] Rx#:[id number] Sodium Chloride 0.9% 1, 300 75 000 ml @ 75 mls/hr IV . [id number] [facility] Rx#:[id number] Intake, IV Titration 247.343 264.313 Amount Heparin Sod,Pork in 0.45% 250.00 NaCl 25,000 unit In 0.45 % NaCl 1 250ml.bag @ 11. 02 UNITS/KG/HR 9.997 mls/ hr IV .Q24H [facility] Rx#: [id number] Insulin Regular 100 unit 22.343 14.313 In Sodium Chloride 0.9% 100 ml @ Titrate IV .Q0M [facility] Rx#:[id number] Sodium Chloride 0.9% 1, 225 000 ml @ 75 mls/hr IV . [id number] [facility] Rx#:[id number] Output: Urine 250 375 0 Other: Voiding Method External Catheter External Catheter # Voids 0 0 - Exam The patient appeared well nourished and normally developed. Vital signs as documented. She is comfortable on 2 Liters/min, obese with a BMI of 38 Head exam is unremarkable. No scleral icterus or corneal arcus noted. Neck is without jugular venous distension, thyromegaly, or carotid bruits. Carotid upstrokes are brisk bilaterally. Lungs are clear to auscultation and percussion. Cardiac exam reveals the PMI to be normally sized and situated. Rhythm is regular. First and second heart sounds normal. No murmurs, rubs or gallops. Abdominal exam reveals normal bowel sounds, no masses, no organomegaly and no aortic enlargement. Extremities are nonedematous and both femoral and pedal pulses are normal. Examination of the skin revealed no evidence of significant rashes, suspicious appearing nevi or other concerning lesions. Neurologically, the patient is awake and alert and the patient does not have any focal neurological deficit. Cranial nerves are essentially intact. - Labs CBC & Chem 7: 01/20/25 03:26 01/20/25 03:34 Labs: Abnormal Lab Results - Last 24 Hours (Table) 01/19/25 01/19/25 01/19/25 Range/Units 07:01 12:40 16:29 WBC (4.50-10.00) 10*3/uL RBC (4.10-5.20) 10*6/uL Hgb (12.0-15.0) g/dL Hct (37.2-46.3) % MCH (27.0-32.0) pg MCHC (32.0-37.0) g/dL Neutrophils # (1.80-7.70) 10*3/uL Eosinophils # (0.04-0.35) 10*3/uL APTT (22.0-30.0) sec Sodium (137-145) mmol/L Carbon Dioxide (22-30) mmol/L BUN (7-17) mg/dL Glucose (74-99) mg/dL POC Glucose (mg/dL) 309 H 332 H (70-110) mg/dL Hemoglobin A1c 10.0 H (<=6.0) % AST (14-36) U/L Total Protein (6.3-8.2) g/dL Albumin (3.5-5.0) g/dL 01/19/25 01/19/25 01/19/25 Range/Units 17:28 17:28 19:02 WBC 10.71 H (4.50-10.00) 10*3/uL RBC 3.82 L (4.10-5.20) 10*6/uL Hgb 9.8 L (12.0-15.0) g/dL Hct 32.1 L (37.2-46.3) % MCH 25.7 L (27.0-32.0) pg MCHC 30.5 L (32.0-37.0) g/dL Neutrophils # 7.84 H (1.80-7.70) 10*3/uL Eosinophils # 0.00 L (0.04-0.35) 10*3/uL APTT (22.0-30.0) sec Sodium 131 L (137-145) mmol/L Carbon Dioxide 21 L (22-30) mmol/L BUN 23 H (7-17) mg/dL Glucose 298 H (74-99) mg/dL POC Glucose (mg/dL) 308 H (70-110) mg/dL Hemoglobin A1c (<=6.0) % AST 97 H (14-36) U/L Total Protein (6.3-8.2) g/dL Albumin 3.3 L (3.5-5.0) g/dL 01/19/25 01/19/25 01/19/25 Range/Units 20:16 21:04 22:13 WBC (4.50-10.00) 10*3/uL RBC (4.10-5.20) 10*6/uL Hgb (12.0-15.0) g/dL Hct (37.2-46.3) % MCH (27.0-32.0) pg MCHC (32.0-37.0) g/dL Neutrophils # (1.80-7.70) 10*3/uL Eosinophils # (0.04-0.35) 10*3/uL APTT (22.0-30.0) sec Sodium (137-145) mmol/L Carbon Dioxide (22-30) mmol/L BUN (7-17) mg/dL Glucose (74-99) mg/dL POC Glucose (mg/dL) 277 H 283 H 209 H (70-110) mg/dL Hemoglobin A1c (<=6.0) % AST (14-36) U/L Total Protein (6.3-8.2) g/dL Albumin (3.5-5.0) g/dL 01/19/25 01/20/25 01/20/25 Range/Units 23:10 01:07 02:02 WBC (4.50-10.00) 10*3/uL RBC (4.10-5.20) 10*6/uL Hgb (12.0-15.0) g/dL Hct (37.2-46.3) % MCH (27.0-32.0) pg MCHC (32.0-37.0) g/dL Neutrophils # (1.80-7.70) 10*3/uL Eosinophils # (0.04-0.35) 10*3/uL APTT (22.0-30.0) sec Sodium (137-145) mmol/L Carbon Dioxide (22-30) mmol/L BUN (7-17) mg/dL Glucose (74-99) mg/dL POC Glucose (mg/dL) 127 H 148 H 144 H (70-110) mg/dL Hemoglobin A1c (<=6.0) % AST (14-36) U/L Total Protein (6.3-8.2) g/dL Albumin (3.5-5.0) g/dL 01/20/25 01/20/25 01/20/25 Range/Units 03:06 03:26 03:34 WBC (4.50-10.00) 10*3/uL RBC 3.64 L (4.10-5.20) 10*6/uL Hgb 9.1 L (12.0-15.0) g/dL Hct 31.7 L (37.2-46.3) % MCH 25.0 L (27.0-32.0) pg MCHC 28.7 L (32.0-37.0) g/dL Neutrophils # (1.80-7.70) 10*3/uL Eosinophils # 0.02 L (0.04-0.35) 10*3/uL APTT (22.0-30.0) sec Sodium 131 L (137-145) mmol/L Carbon Dioxide 20 L (22-30) mmol/L BUN 21 H (7-17) mg/dL Glucose 171 H (74-99) mg/dL POC Glucose (mg/dL) 193 H (70-110) mg/dL Hemoglobin A1c (<=6.0) % AST 67 H (14-36) U/L Total Protein 6.0 L (6.3-8.2) g/dL Albumin 2.9 L (3.5-5.0) g/dL 01/20/25 01/20/25 01/20/25 Range/Units 03:34 04:18 05:15 WBC (4.50-10.00) 10*3/uL RBC (4.10-5.20) 10*6/uL Hgb (12.0-15.0) g/dL Hct (37.2-46.3) % MCH (27.0-32.0) pg MCHC (32.0-37.0) g/dL Neutrophils # (1.80-7.70) 10*3/uL Eosinophils # (0.04-0.35) 10*3/uL APTT 80.2 H (22.0-30.0) sec Sodium (137-145) mmol/L Carbon Dioxide (22-30) mmol/L BUN (7-17) mg/dL Glucose (74-99) mg/dL POC Glucose (mg/dL) 164 H 144 H (70-110) mg/dL Hemoglobin A1c (<=6.0) % AST (14-36) U/L Total Protein (6.3-8.2) g/dL Albumin (3.5-5.0) g/dL Assessment and Plan Plan: Acute NSTEMI, troponin peaked at 38 and the patient remains on aspirin and IV heparin.The patient is also on metoprolol 25 mg p.o. twice daily. Cardiology on the case. Awaiting repeat echocardiogram. May possibly need another cardiac catheterization. The patient continues to have low urine output. The patient was given IV fluid boluses, total of 1 L yesterday and another bolus is in progress. Free of any chest pain. Acute DKA with anion gap metabolic acidosis and hyperglycemia, resuscitated with IV fluids and insulin drip with subsequent closure of the anion gap. The p atient has been transition to long-acting insulin and subsequently Lantus was placed on hold and the patient is receiving only sliding scale insulin coverage. Her oral intake is limited due to her underlying nausea. Based on that, we will put the patient only on sliding scale insulin coverage and monitor blood sugars closely. Coronary artery disease with recent cardiac catheterization in November 2024, 20 to 30% left main disease, 40 to 50% mid LAD disease and 100% proximal RCA. The patient also had collaterals from left to right and the patient was offered medical management Systolic heart failure, likely ischemic with an EF of around 20 to 25%, based on echo from November 2024 and EF of around 10 to 15%. An echo in July 2024 Persistent nausea and emesis, could be related to myocardial ischemia. CAT scan of the abdomen is negative and the patient has a large hiatal hernia. Currently on Zofran and the patient continues to have ongoing episodes of nausea and emesis. Consider cardiac ischemia contributing to her ongoing nausea. On today's evaluation, her nausea has subsided. Diabetes mellitus type 2 maintained on Lantus insulin 24 units daily in addition to sliding scale coverage on outpatient basis Lactic acidosis, improving Hypertension Hypothyroidism maintained on Synthroid History of atrial flutter, current cardiac rhythm is sinus with a intraventricular conduction delay and right axis deviation. The patient is maintained on a combination of metoprolol and Eliquis on outpatient basis Chronic hypoxic respiratory failure maintained on O2 at 2 L/min nasal cannula Spondylosis of the lumbar spine Obesity with a BMI of 38.8 Hyperlipidemia Plan Continue aspirin and IV heparin Repeat echocardiogram is pending Give another 1000 cc of bolus of lactated Ringer. Monitor urine output. Reconsult cardiology the patient may benefit from another cardiac catheteriza tion as the patient sustained another acute NSTEMI Continue metoprolol 25 mg p.o. twice a day High-dose statins 80 mg Lipitor on a daily basis Management of CHF per cardiology. Management of DKA. Anion gap is closed and the patient is currently on sliding scale insulin coverage. Hourly monitoring of blood sugars Zofran for nausea Condition is critical and the patient will be maintained in the intensive care unit. Will continue to follow. This evaluation was done more than 35 minutes.
[2025-01-20 20:13] LABS: Glucose,Whole Blood 250 mg/dL (70-110)
[2025-01-21] MEDS: SODIUM CHLORIDE 0.9% 500 ML 500 ML IV ONE (00:45)
[2025-01-21 06:34] LABS: Glucose,Whole Blood 149 mg/dL (70-110)
[2025-01-21 07:40] LABS: Basophils # (A) 0.04 10*3/uL (0.00-0.10); Basophils % (A) 0.5 %; Eosinophils # (A) 0.10 10*3/uL (0.04-0.35); Eosinophils % (A) 1.2 %; HCT 35.3 % (37.2-46.3); HGB 10.3 g/dL (12.0-15.0); Lymphocytes # (A) 1.36 10*3/uL (0.90-5.00); Lymphocytes % (A) 16.1 %; MCH 25.2 pg (27.0-32.0); MCHC 29.2 g/dL (32.0-37.0); MCV 86.3 fL (80.0-97.0); Monocytes # (A) 0.69 10*3/uL (0.20-1.00); Monocytes % (A) 8.2 %; Neutrophils # (A) 6.22 10*3/uL (1.80-7.70); Neutrophils % (A) 73.4 %; Platelet Count 190 10*3/uL (140-440); RBC 4.09 10*6/uL (4.10-5.20); RDW 19.2 % (11.5-14.5); WBC 8.46 10*3/uL (4.50-10.00)
[2025-01-21 08:02] LABS: ALT 14 U/L (4-34); African American GFR (CKD) >90 (>60 ml/min/1.73 sqM); Albumin 3.3 g/dL (3.5-5.0); Anion Gap 11 mmol/L; Blood Urea Nitrogen 13 mg/dL (7-17); Calcium 8.7 mg/dL (8.4-10.2); Carbon Dioxide 15 mmol/L (22-30); Chloride 109 mmol/L (98-107); Glucose 168 mg/dL (74-99); Non-African American GFR(CKD) >90 (>60 ml/min/1.73 sqM); Sodium 135 mmol/L (137-145); Total Protein 6.8 g/dL (6.3-8.2)
[2025-01-21 08:07] LABS: AST 55 U/L (14-36); Alkaline Phosphatase 121 U/L (38-126); Potassium 4.2 mmol/L (3.5-5.1)
[2025-01-21] MEDS: FAMOTIDINE 20 MG TAB PO SCH (09:31)
--- NOTE | 2025-01-21 09:50 | CA ---
Transthoracic Echo Report Name: Cara Martinez Age: 69 Gender: F : 1955 Exam Date: 01/20/2025 13:14 Exam Location: [facility] Ht (in): 60 Wt (lb): 200 Ordering Physician: Meenu Cano Attending/Referring Phys: [id number], [employer] Colt Crowe RDCS Procedure CPT: Indications: Elevated troponins, DKA Cardiac Hx: Limited for LVF Technical Quality: Technically difficult study Contrast 1: Definity Total Dose (mL): 2 Contrast 2: Total Dose (mL): MEASUREMENTS (Male / Female) Normal Values 2D ECHO LV Diastolic Diameter PLAX 5.6 cm 4.2 - 5.9 / 3.9 - 5.3 cm LV Systolic Diameter PLAX 4.8 cm IVS Diastolic Thickness 1.1 cm 0.6 - 1.0 / 0.6 - 0.9 cm LVPW Diastolic Thickness 1.0 cm 0.6 - 1.0 / 0.6 - 0.9 cm LV Relative Wall Thickness 0.4 RV Internal Dim ED PLAX 4.2 cm LVOT Diameter 1.4 cm LA Systolic Diameter LX 4.4 cm 3.0 - 4.0 / 2.7 - 3.8 cm LV Diastolic Volume MOD BP 203.3 cm??? 67 - 155 / 56 - 104 cm??? LV Systolic Volume MOD BP 164.4 cm??? 22 - 58 / 19 - 49 cm??? LV Ejection Fraction MOD BP 19.2 % >= 55 % LV Cardiac Index MOD BP 1782.4 cm???/min???m??? LV Diastolic Volume MOD 4C 231.6 cm??? LV Systolic Volume MOD 4C 178.5 cm??? LV Ejection Fraction MOD 4C 22.9 % LV Cardiac Index MOD 4C 2430.8 cm???/min???m??? LV Diastolic Length 4C 8.5 cm LV Systolic Length 4C 8.5 cm LV Diastolic Volume MOD 2C 174.8 cm??? LV Systolic Volume MOD 2C 148.0 cm??? LV Ejection Fraction MOD 2C 15.3 % LV Cardiac Index MOD 2C 1223.2 cm???/min???m??? LV Diastolic Length 2C 8.3 cm LV Systolic Length 2C 8.2 cm DOPPLER Right Atrial Pressure 10.0 mmHg FINDINGS Left Ventricle Left ventricular ejection fraction is estimated at 15-20%. Mildly increased septal wall thickness. Mildly increased posterior wall thickness. Mildly increased left ventricular diastolic diameter. Severely increased left ventricular diastolic volume. Severely increased left ventricular systolic volume. Severely decreased left ventricular ejection fraction. Akinetic septum. Right Ventricle Right ventricular dilatation. Reduced right ventricular global systolic function. Unable to estimate the right ventricular systolic pressure. Right Atrium Normal right atrial size. Left Atrium Moderately increased left atrial diameter. Mitral Valve Mitral annular calcification. No mitral stenosis. Trace mitral regurgitation. Aortic Valve Trileaflet aortic valve. Thickened aortic valve without stenosis.no aortic regurgitation. Tricuspid Valve Structurally normal tricuspid valve. No tricuspid stenosis. Trace tricuspid regurgitation. Pulmonic Valve Structurally normal pulmonic valve. Mild pulmonic regurgitation. Pericardium No pericardial effusion. Aorta Aortic annulus normal. CONCLUSIONS LVEF 15 to 20% Dilated LV cavity with severely reduced global systolic function. Distal inferolateral lateral and anterolateral wall hypokinesia No evidence of LV thrombus appreciated Dilated RV with reduced systolic function Moderate left atrial dilatation No obvious valvular dysfunction appreciated Previewed by: Dr Mars Barth (Electronically Signed) Final Date: 21 January 2025 09:50
--- NOTE | 2025-01-21 10:01 | P.PN ---
Subjective Progress Note Date: 01/21/25 The patient is a 69-year-old female who follows in the office with Dr. Elkins. She was admitted to the hospital with nausea and vomiting, secondary to diabetic ketoacidosis. Cardiology had been consulted as she had elevated troponin. Patient has a known history of coronary artery disease with recent c oronary angiogram in November showing intermediate to severe disease with right to left collaterals. Limited echocardiogram in November showed ejection fraction of 25%. Patient has now improved from her DKA, therefore she will be undergoing coronary angiogram for NSTEMI. Procedure has been discussed in detail with the patient. Patient states she did well overnight. No chest pain or pressure. No difficulty breathing. GENERAL: Well-appearing, well-nourished and in no acute distress. NECK: Supple without JVD or thyromegaly. LUNGS: Breath sounds clear to auscultation bilaterally. Respiration equal and unlabored. No wheezes, rales or rhonchi. HEART: Regular rate and rhythm without murmurs, rubs or gallops. S1 and S2 heard. EXTREMITIES: Normal range of motion, no edema. No clubbing or cyanosis. Pe ripheral pulses intact and strong. TELEMETRY: Sinus rhythm overnight LABS: WBC 8.4, hemoglobin 10.3, hematocrit 35.3, platelet 190, sodium 135, potassium 4.2, BUN 13, creatinine 0.63, AST 55, ALT 14 IMPRESSION: Nausea and vomiting DKA Non-STEMI Coronary artery disease with previous PCI Ischemic cardiomyopathy, EF 25% Hypertension Hyperlipidemia History of diabetes History of hypothyroidism History of atrial flutter History of congestive heart failure with reduced EF PLAN: Patient to undergo coronary angiogram at noon I am dictating on behalf of Dr Dylon Boone's history/physical and ass essment/plan. Objective - Vital Signs Vital signs: Vital Signs Temp 98 F 01/21/25 00:00 Pulse 91 01/21/25 07:00 Resp 12 01/21/25 07:00 BP 101/55 01/21/25 07:00 Pulse Ox 100 01/21/25 07:00 FiO2 Intake & Output 01/20/25 01/21/25 01/21/25 18:59 06:59 18:59 Intake Total 2113.820 831.053 75 Output Total 250 500 0 Balance 1863.820 331.053 75 Weight 98.5 kg Intake: IV 1400 750 75 Lactated Ringers 500 ml @ 500 999 mls/hr IV .Q31M [facility] Rx#:[id number] Sodium Chloride 0.9% 1, 900 750 75 000 ml @ 75 mls/hr IV . [id number] [facility] Rx#:[id number] Intake, IV Titration 313.820 81.053 Amount Heparin Sod,Pork in 0.45% 299.507 81.053 NaCl 25,000 unit In 0.45 % NaCl 1 250ml.bag @ 11. 02 UNITS/KG/HR 9.997 mls/ hr IV .Q24H [facility] Rx#: [id number] Insulin Regular 100 unit 14.313 In Sodium Chloride 0.9% 100 ml @ Titrate IV .Q0M [facility] Rx#:[id number] Oral 400 Output: Urine 250 500 0 Other: Voiding Method External Catheter External Catheter # Voids 1 1 - Labs CBC & Chem 7: 01/21/25 07:23 01/21/25 07:23 Labs: Abnormal Lab Results - Last 24 Hours (Table) 01/20/25 01/20/25 01/20/25 Range/Units 11:10 13:13 16:13 RBC (4.10-5.20) 10*6/uL Hgb (12.0-15.0) g/dL Hct (37.2-46.3) % MCH (27.0-32.0) pg MCHC (32.0-37.0) g/dL Immature Gran # (0.00-0.04) 10*3/uL APTT 30.8 H (22.0-30.0) sec Sodium (137-145) mmol/L Chloride (98-107) mmol/L Carbon Dioxide (22-30) mmol/L Glucose (74-99) mg/dL POC Glucose (mg/dL) 172 H 212 H (70-110) mg/dL AST (14-36) U/L Albumin (3.5-5.0) g/dL 01/20/25 01/20/25 01/21/25 Range/Units 20:11 20:44 06:33 RBC (4.10-5.20) 10*6/uL Hgb (12.0-15.0) g/dL Hct (37.2-46.3) % MCH (27.0-32.0) pg MCHC (32.0-37.0) g/dL Immature Gran # (0.00-0.04) 10*3/uL APTT 90.8 H (22.0-30.0) sec Sodium (137-145) mmol/L Chloride (98-107) mmol/L Carbon Dioxide (22-30) mmol/L Glucose (74-99) mg/dL POC Glucose (mg/dL) 250 H 149 H (70-110) mg/dL AST (14-36) U/L Albumin (3.5-5.0) g/dL 01/21/25 01/21/25 01/21/25 Range/Units 07:23 07:23 07:23 RBC 4.09 L (4.10-5.20) 10*6/uL Hgb 10.3 L (12.0-15.0) g/dL Hct 35.3 L (37.2-46.3) % MCH 25.2 L (27.0-32.0) pg MCHC 29.2 L (32.0-37.0) g/dL Immature Gran # 0.05 H (0.00-0.04) 10*3/uL APTT 33.4 H (22.0-30.0) sec Sodium 135 L (137-145) mmol/L Chloride 109 H (98-107) mmol/L Carbon Dioxide 15 L (22-30) mmol/L Glucose 168 H (74-99) mg/dL POC Glucose (mg/dL) (70-110) mg/dL AST 55 H (14-36) U/L Albumin 3.3 L (3.5-5.0) g/dL
[2025-01-21] MEDS: LOSARTAN 25 MG TAB PO SCH (10:08)
[2025-01-21] MEDS: TORSEMIDE 20 MG TAB PO SCH (10:08)
[2025-01-21] MEDS: POTASSIUM CHLORIDE ER 20 MEQ TAB.ER PO SCH (10:09)
[2025-01-21] MEDS: SODIUM BICARB 8.4% 50 ML SYR (1 MEQ/ML) IV SCH (10:42)
[2025-01-21 11:43] LABS: Glucose,Whole Blood 266 mg/dL (70-110)
--- NOTE | 2025-01-21 14:25 | P.PN ---
Subjective Progress Note Date: 01/21/25 This is a 69-year-old female with a previous medical history significant for hypertension and hypertensive cardiovascular disease, hyperlipidemia, hypothyroidism, chronic gastroesophageal reflux disease with esophagitis, type 1 diabetes mellitus currently on insulin pump, vitamin D deficiency, diabetic neuropathy, patient also had history of spondylosis of the lumbar spine status post lumbar laminectomy back in 07/01/2022 followed by a wound dehiscence at the [facility] of the lumbar area and she ended up going back for another surgical intervention 2022 followed by a wound care of the surgical site, patient recovered very well from that, patient apparently was recently hospitalized at [facility] for urine from August 21, 2024 till August 27, 2024 after she was admitted for what appears to be an unstable patient myocardial infarction status post left heart catheterization that showed evidence of 20 to 30% stenosis of the left main artery, 40 to 50% stenosis of the LAD where she had a previous stent, and 99% of the RCA with collaterals from left to right, no intervention was done, patient also did have acute blood loss anemia status post 1 unit of packed red blood cells procedure was seen in consultation by general surgery who is recommended not to do any intervention at this point in time, patient was last hospitalized on November 27, 2024 after she was admitted for non-ST elevation myocardial infarction and ischemic cardiomyopathy with ejection fraction of 10 to 15%, at that time she was sent back to endocrinology, patient was discharged recently, under the having an epidural injection. By the pain clinic on the 10th of this month, apparently she continues to yesterday with intractable nausea and vomiting not able to keep anything down, she was not in diabetic status at that time, she was given IV fluid resuscitation, she was given some insulin, she was sent home as outpatient, patient became a lot worse, she was started intractable nausea and vomiting and she was not keeping anything down, she became quite weak in general fatigue and she was brought to the ER again and she was found to be diabeticwith a bicarb level of 8 she was also found to have a lactic acidosis of 5, she was given IV fluid resuscitation, she was found to have a troponin level of 2 she was admitted to the hospital intensive care unit with a diagnosis of diabetic acidosis and lactic acidosis with non-ST elevation myocardial function, with cardiology consultation as well as pulmonary consultation was obtained. 01/19: Patient is laying down in bed in no apparent distress, she denies any chest pain at this time, she has no shortness of breath, her troponin is quite elevated, she was seen in consultation by cardiology, she has been started back on her metoprolol 25 mg orally twice every day, baby aspirin 81 mg once every day, Lipitor 80 mg once every day, she has been on heparin drip, she was seen in consultation by cardiology she has ruled in non-ST elevation RI, patient's chest pain-free at this point in time, she has underlying ischemic cardiomyopathy with ejection fraction of 15 %, we will continue to follow-up with the patient he was transition to Lantus 25 units at bedtime along with a sliding scale insulin as her anion gap has closed. 01/20: Patient is laying in her bed in no apparent distress, she is feeling better today than yesterday, yesterday she became quite confused, ended up going for a CT scan of the brain that was negative for acute infarct or bleed, chest x-ray showed pulmonary vascular congestion and cardiomegaly, patient need to be started back on her diuretics in the form of torsemide as well as potassium supplement, she was started yesterday on insulin drip as well she was kept on heparin drip, continue current treatment plan, keep the patient in ICU for now 01/21. Patient seen examined. States nausea and vomiting has resolved. Denies any chest pain or shortness of breath. REVIEW OF SYSTEMS: CONSTITUTIONAL: No fever, no malaise,. CARDIOVASCULAR: No chest pain, no palpitations, no syncope. PULMONARY: No shortness of breath, no cough, GASTROINTESTINAL: No diarrhea, no nausea, no vomiting, no abdominal pain. NEUROLOGICAL: No headaches, no weakness, PHYSICAL EXAMINATION: GENERAL: The patient is alert and oriented x3, not in any acute distress. Well developed, well nourished. HEENT: Pupils are round and equally reacting to light. EOMI. No scleral icterus. No conjunctival pallor. Normocephalic, atraumatic. No pharyngeal erythema. No thyromegaly. CARDIOVASCULAR: S1 and S2 present. No murmurs, rubs, or gallops. PULMONARY: Chest is clear to auscultation, no wheezing or crackles. ABDOMEN: Soft, nontender, nondistended, normoactive bowel sounds. No palpable organomegaly. MUSCULOSKELETAL: No joint swelling or deformity. EXTREMITIES: No cyanosis, clubbing, or pedal edema. NEUROLOGICAL: Gross neurological examination did not reveal any focal deficits. SKIN: No rashes. Assessment and plan 1. Acute anion gap metabolic acidosis due to diabetic ketoacidosis as well as lactic acidosis Monitor blood sugar levels, continue current insulin regimen 2. Acute non-ST elevation RI in a patient with prior history coronary artery disease status post PCI of the LAD with recent left heart catheterization that was done July 2024 that showed evidence of left main disease 20 to 30%, LAD 4050% stenosis where the stent is and RCA 99% stenosis with collaterals from left to right. Continue patient on metoprolol 25 mg orally twice every day, aspirin 81 mg once every day, also continue patient on atorvastatin 40 mg orally once every day, keep LDL 55-70 continue heparin drip. Cardiology following 3. History of pulmonary embolism. Continue with heparin drip for now. 4. Paroxysmal atrial fibrillation/flutter. Continue patient on metoprolol 25 mg orally twice every day, continue heparin drip for now, 5. Hypertension and hypertensive cardiovascular disease. Continue patient on metoprolol 25 mg orally twice every day, 6. Hyperlipidemia. continue atorvastatin 80 mg orally once every day, monitor the patient the benefit, keep LDL 55-70. 7. Hypothyroidism. Continue patient on Synthroid 112 g orally once every day monitor TSH and free T4. 8. Diabetes mellitus type 1. Mild. We will try to transition back to Lantus and sliding scale insulin 9. GERD with esophagitis and had a hernia. Continue patient on omeprazole 20 mg mg once every day along with Pepcid 20 mg orally twice every day. 10. Obesity with obstructive sleep apnea and possible obesity hypoventilation syndrome patient will need to have a sleep study as an outpatient. 11. Vitamin D deficiency. Continue vitamin D3 2000 units once every day. 12. History of kidney stones. stable at this time Labs and medication were reviewed.. Continue same treatment. Continue with symptomatic treatment. Resume home medication. Monitor labs and vitals. DVT and GI prophylaxis. Further recommendations as per clinical course of the patient Dictation was produced using [employer] dictation software. please excuse any grammatical, word or spelling errors. Objective - Vital Signs Vital signs: Vital Signs Temp 98.3 F 01/21/25 08:00 Pulse 89 01/21/25 11:00 Resp 16 01/21/25 11:00 BP 121/55 01/21/25 11:00 Pulse Ox 100 01/21/25 11:00 FiO2 Intake & Output 01/20/25 01/21/25 01/21/25 18:59 06:59 18:59 Intake Total 2113.820 831.053 75 Output Total 250 500 200 Balance 1863.820 331.053 -125 Weight 98.5 kg Intake: IV 1400 750 75 Lactated Ringers 500 ml @ 500 999 mls/hr IV .Q31M [facility] Rx#:[id number] Sodium Chloride 0.9% 1, 900 750 75 000 ml @ 75 mls/hr IV . [id number] [facility] Rx#:[id number] Intake, IV Titration 313.820 81.053 Amount Heparin Sod,Pork in 0.45% 299.507 81.053 NaCl 25,000 unit In 0.45 % NaCl 1 250ml.bag @ 11. 02 UNITS/KG/HR 9.997 mls/ hr IV .Q24H [facility] Rx#: [id number] Insulin Regular 100 unit 14.313 In Sodium Chloride 0.9% 100 ml @ Titrate IV .Q0M [facility] Rx#:[id number] Oral 400 Output: Urine 250 500 200 Other: Voiding Method External Catheter External Catheter # Voids 1 1 - Labs CBC & Chem 7: 01/21/25 07:23 01/21/25 07:23 Labs: Abnormal Lab Results - Last 24 Hours (Table) 01/20/25 01/20/25 01/20/25 Range/Units 16:13 20:11 20:44 RBC (4.10-5.20) 10*6/uL Hgb (12.0-15.0) g/dL Hct (37.2-46.3) % MCH (27.0-32.0) pg MCHC (32.0-37.0) g/dL Immature Gran # (0.00-0.04) 10*3/uL APTT 90.8 H (22.0-30.0) sec Sodium (137-145) mmol/L Chloride (98-107) mmol/L Carbon Dioxide (22-30) mmol/L Glucose (74-99) mg/dL POC Glucose (mg/dL) 212 H 250 H (70-110) mg/dL AST (14-36) U/L Albumin (3.5-5.0) g/dL 01/21/25 01/21/25 01/21/25 Range/Units 06:33 07:23 07:23 RBC 4.09 L (4.10-5.20) 10*6/uL Hgb 10.3 L (12.0-15.0) g/dL Hct 35.3 L (37.2-46.3) % MCH 25.2 L (27.0-32.0) pg MCHC 29.2 L (32.0-37.0) g/dL Immature Gran # 0.05 H (0.00-0.04) 10*3/uL APTT (22.0-30.0) sec Sodium 135 L (137-145) mmol/L Chloride 109 H (98-107) mmol/L Carbon Dioxide 15 L (22-30) mmol/L Glucose 168 H (74-99) mg/dL POC Glucose (mg/dL) 149 H (70-110) mg/dL AST 55 H (14-36) U/L Albumin 3.3 L (3.5-5.0) g/dL 01/21/25 01/21/25 Range/Units 07:23 11:41 RBC (4.10-5.20) 10*6/uL Hgb (12.0-15.0) g/dL Hct (37.2-46.3) % MCH (27.0-32.0) pg MCHC (32.0-37.0) g/dL Immature Gran # (0.00-0.04) 10*3/uL APTT 33.4 H (22.0-30.0) sec Sodium (137-145) mmol/L Chloride (98-107) mmol/L Carbon Dioxide (22-30) mmol/L Glucose (74-99) mg/dL POC Glucose (mg/dL) 266 H (70-110) mg/dL AST (14-36) U/L Albumin (3.5-5.0) g/dL
[2025-01-21] MEDS: HEPARIN SODIUM,PORCINE 10,000 UNIT in SODIUM CHLORIDE 0.9% 1,000 ML IRRIGATION PRN (14:33)
[2025-01-21] MEDS: HEPARIN SODIUM,PORCINE (1 ML) 2,500 UNIT in SODIUM CHLORIDE 0.9% 250 ML IRRIGATION PRN (14:33)
[2025-01-21] MEDS: SODIUM CHLORIDE 0.9% 1,000 ML IV ONE (14:34)
[2025-01-21] MEDS: MIDAZOLAM 2 MG/2 ML VIAL IVP ONE (14:57)
[2025-01-21] MEDS: LIDOCAINE 1% INJ 10MG/ML (20 ML MDV) SQ ONE (15:02)
[2025-01-21] MEDS: fentaNYL (PF) 50 MCG/ML 2 ML AMP IVP ONE (15:03)
[2025-01-21] MEDS: IOPAMIDOL-370 100ML BTL INJ ONE (15:11)
[2025-01-21] MEDS ORDERED: RX INFO: IV CONTRAST WAS GIVEN 1 EACH MISC MISCELLANE PRN (15:14)
--- NOTE | 2025-01-21 15:18 | P.PCN ---
Date of Procedure: 01/21/25 Operative Findings: CARDIAC CATHETERIZATION PERFORMING PHYSICIAN: Frantz Sims MD, RPVI PROCEDURE PERFORMED: 1. Selective right and left coronary angiogram 2. Left heart catheterization 3. Ultrasound-guided access of the right common femoral artery and selective right common femoral artery angiogram INDICATION: Acute coronary syndrome COMPLICATION: None APPROACH: Right common femoral artery LEVEL OF SEDATION: Moderate with sedation in length of 12 minutes PROCEDURE DESCRIPTION: After obtaining an informed consent, the patient was brought to cardiac supervisor cytogenetic laboratory. Local anesthesia was performed using lidocaine subcutaneously. The right common femoral artery was cannulated using Seldinger technique, the guidewire passed easily, following that we advanced a 6 [place] sheath dilator assembly, the wire and dilator were removed and sheath was flushed. Selective right and left coronary angiogram using a 6-[place] JR4 and JL catheters. Following that we did left heart catheterization using 6-[place] pigtail catheter. The procedure was completed there was no complication. SELECTIVE CORONARY ANGIOGRAM: The right coronary artery: Large caliber vessel and a dominant vessel and the RCA is chronically occluded and fills by contralateral collateral Left main: Has mild disease all The left circumflex: Large caliber vessel nondominant vessel with no evidence of high-grade stenosis noted The left anterior descending artery: Large caliber vessel with patent stent in the proximal LAD and mild to moderate diffuse disease involving the LAD with no evidence of high-grade stenosis HEMODYNAMICS: The LVEDP was about 20 mmHg with no significant gradient across aortic valve CONCLUSION: 1. Patent stent in the proximal LAD with mild to moderate diffuse disease involving the LAD with no evidence of high-grade stenosis 2. Chronic total occlusion of small obtuse marginal branch of the left circumflex appeared to be the same as before 3. Chronic total occlusion of the RCA which is also the same as before 4. Elevated left-sided filling pressure POSTPROCEDURE MANAGEMENT: Medical treatment
--- NOTE | 2025-01-21 15:56 | P.PN ---
Subjective Progress Note Date: 01/21/25 This is a 69-year-old female patient being seen in the emergency department and the patient is going to be transferred to the ICU. The patient is known to have coronary artery disease and the patient has undergone recent cardiac catheterization in November 2024 revealing a 20 to 30% left main, 40 to 50% mid LAD, 100% proximal RCA with [id number] collaterals. Medical management was recommended. The patient also has cardiomyopathy with impaired LV function with an ejection fraction of 20 to 25% based on echocardiogram from November 2024. The patient was having persistent nausea and emesis on outpatient basis. She was unable to tolerate any form of oral intake and she quit taking her insulin the patient is diabetic. She used to be on insulin pump in the past and the patient is currently on Lantus insulin. Denies having any significant abdominal pain. She had been having emesis and nausea for the past 4 days at least. Based on that, the patient was came into the hospital and in the emergency department, the patient was found to have anion gap metabolic acidosis consistent with DKA. The patient had a serum bicarb of 7 with a gap of 36 and a blood sugar of 525. Normal renal function. Initial lactic acid level was at 4.5, troponin peaked at 38,000 consistent with acute non-ST segment elevation myocardial infarction. EKG from emergency department showed sinus rhythm with frequent ectopies, PVCs and interventricular conduction delay and right axis deviation. Accordingly, the patient was started on IV fluids. The patient was given a total of 2.5 L of normal saline and started on DKA protocol. The patient is currently on insulin drip for blood sugar control. Subsequent electrolytes showed improvement in the serum bicarb came up to 34 with a gap of 1 and the blood sugar is currently at 176. Lactic acid level dropped down to 3.2. The patient is awake and alert and communicating. Free of any chest pain. No ongoing nausea or emesis. She is also on IV heparin and cardiology consultation has been obtained. She remains on aspirin. She remains on metoprolol 25 mg p.o. twice daily. IV fluids has been switched to D5 half-normal saline which is currently running at a rate of 50 cc an hour. In terms of respiratory status, the patient is stable on 2 L of oxygen by nasal cannula with a pulse ox of 99%. CAT scan of the abdomen and pelvis showed normal appendix, normal bowel pattern, colonic diverticulosis and moderate degree of hiatal hernia. Chest x-ray showed moderate cardiomegaly with mild pulm vascular congestion and some atelectatic changes in the left lung b ase. Comorbidities include diabetes mellitus type 2, coronary artery disease, hypertension, hyperlipidemia, hypothyroidism, history of a flutter and CHF with impaired LV function. On 01/19/2025, the patient is being seen for a follow-up. The patient continues to have episodes of nausea. She had limited oral intake earlier this morning and she had another bout of emesis. She remains on oxygen at 2 L/min nasal cannula with a pulse ox of 99%. She was treated for an acute DKA and the patient was taken off the insulin drip and the patient was transition to long- acting insulin the patient is currently on Lantus insulin 30 units daily and NovoLog 8 units with meals and sliding scale coverage. Noted the patient has been able to eat properly due to persistent nausea for which the patient is r eceiving Zofran. She remains on D5 half-normal saline at rate of 50 cc an hour. The most recent blood work shows a sodium level of 131, serum bicarbonate 20 with a gap of 7. BUN 26 with a creatinine 0.9. Blood sugars remain somewhat elevated at 309. The patient's HbA1c came back at 10. LFTs are normal. The white cell count is 14.1. Hemoglobin 9.8 and a platelet count of 241. On a separate note, the patient had an acute NSTEMI and troponin peaked at 38 and the patient remains on IV heparin. She denies having any chest pain. The cardiac rhythm remained sinus. Repeat chest x-ray was done today and the patient continues to have cardiomegaly with mild pulmonary vascular congestion. C ardiology is on the case. The patient is being treated medically and no plans for any intervention for now. On 01/20/2025, the patient is being seen for a follow-up. Noted, the patient continues to have episodes of low urine output. The patient was given bolus of IV fluids yesterday for low urine output and low blood pressure. The patient received 500 cc of lactated Ringer bolus x 2. This afternoon, the patient developed again low urine output and the patient receiving another fluid bolus. Meanwhile, she is free of any chest pain. She is awake and alert. Denies having any significant shortness of breath. She remains on IV heparin. She is feeling less nauseated compared to yesterday. Noted the patient was having significant fluctuation in blood sugars. After being maintained on Lantus, the patient was taken off Lantus because of hyperglycemia and started on insulin drip and currently she is off the insulin drip and receiving only sliding scale insulin coverage. Electrolytes are stable. Sodium levels at 131, serum bicarb is 20 with a BUN of 21 and a creatinine of 0.7. WBC count is 7.7 with a hemoglobin 9.1 and a platelet count of 184. LFTs are normal. The patient rem ains on aspirin. The patient remains on IV heparin. The patient is also on metoprolol 25 mg p.o. twice a day. She is on Lipitor 80 mg p.o. daily. She is currently off diuretics. Cardiology is on the case regarding the acute NSTEMI. The chest x-ray from yesterday was consistent with cardiomegaly with mild pulm vessel congestion. Nevertheless, the patient's overall respiratory status is stable and the patient denies having any significant shortness of breath remains on 2 L of oxygen by nasal cannula with a pulse ox of 99%. On 01/21/2025, the patient is being seen for a follow-up. The patient is currently comfortable on 2 L of oxygen by nasal cannula and the patient is free of any chest pain. Nevertheless, the patient was having issues with low urine output and the patient was given several bolus of IV fluid a total of 1 L of IV fluid bolus was given yesterday and the patient currently is on normal saline at rate of 75 cc an hour. Urine output is improved. Overall fluid balance is +2.1 L over the past 24 hours and the patient is doing well. No hypotension. No pressors for now. The patient is scheduled to undergo a cardiac catheterization today. No significant nausea. No significant chest pain. No significant cardiac arrhythmias. The white cell count at 8.4 with a hemoglobin 10.3 and a platelet count of 190. Sodium is at 135, bicarb is at 15 with a gap of 11 and a BUN of 13 and a creatinine 0.6. The patient remains on aspirin. The patient remains on metoprolol 25 mg p.o. twice a day. The patient remains on IV heparin. The patient will be started back on Lantus insulin 12 units. In regards to the metabolic acidosis, this is a 9 anion gap metabolic acidosis and the bicarb deficit will be replaced accordingly. Cardiology on the case. Objective - Vital Signs Vital signs: Vital Signs Temp 98 F 01/21/25 00:00 Pulse 91 01/21/25 07:00 Resp 12 01/21/25 07:00 BP 101/55 01/21/25 07:00 Pulse Ox 100 01/21/25 07:00 FiO2 Intake & Output 01/20/25 01/21/25 01/21/25 18:59 06:59 18:59 Intake Total 2113.820 831.053 75 Output Total 250 500 0 Balance 1863.820 331.053 75 Weight 98.5 kg Intake: IV 1400 750 75 Lactated Ringers 500 ml @ 500 999 mls/hr IV .Q31M [facility] Rx#:[id number] Sodium Chloride 0.9% 1, 900 750 75 000 ml @ 75 mls/hr IV . [id number] [facility] Rx#:[id number] Intake, IV Titration 313.820 81.053 Amount Heparin Sod,Pork in 0.45% 299.507 81.053 NaCl 25,000 unit In 0.45 % NaCl 1 250ml.bag @ 11. 02 UNITS/KG/HR 9.997 mls/ hr IV .Q24H [facility] Rx#: [id number] Insulin Regular 100 unit 14.313 In Sodium Chloride 0.9% 100 ml @ Titrate IV .Q0M [facility] Rx#:[id number] Oral 400 Output: Urine 250 500 0 Other: Voiding Method External Catheter External Catheter # Voids 1 1 - Exam The patient appeared well nourished and normally developed. Vital signs as documented. She is comfortable on 2 Liters/min, obese with a BMI of 38 Head exam is unremarkable. No scleral icterus or corneal arcus noted. Neck is without jugular venous distension, thyromegaly, or carotid bruits. Carotid upstrokes are brisk bilaterally. Lungs are clear to auscultation and percussion. Cardiac exam reveals the PMI to be normally sized and situated. Rhythm is regular. First and second heart sounds normal. No murmurs, rubs or gallops. Abdominal exam reveals normal bowel sounds, no masses, no organomegaly and no aortic enlargement. Extremities are nonedematous and both femoral and pedal pulses are normal. Examination of the skin revealed no evidence of significant rashes, suspicious appearing nevi or other concerning lesions. Neurologically, the patient is awake and alert and the patient does not have any focal neurological deficit. Cranial nerves are essentially intact. - Labs CBC & Chem 7: 01/21/25 07:23 01/21/25 07:23 Labs: Abnormal Lab Results - Last 24 Hours (Table) 01/20/25 01/20/25 01/20/25 Range/Units 11:10 13:13 16:13 RBC (4.10-5.20) 10*6/uL Hgb (12.0-15.0) g/dL Hct (37.2-46.3) % MCH (27.0-32.0) pg MCHC (32.0-37.0) g/dL Immature Gran # (0.00-0.04) 10*3/uL APTT 30.8 H (22.0-30.0) sec Sodium (137-145) mmol/L Chloride (98-107) mmol/L Carbon Dioxide (22-30) mmol/L Glucose (74-99) mg/dL POC Glucose (mg/dL) 172 H 212 H (70-110) mg/dL AST (14-36) U/L Albumin (3.5-5.0) g/dL 01/20/25 01/20/25 01/21/25 Range/Units 20:11 20:44 06:33 RBC (4.10-5.20) 10*6/uL Hgb (12.0-15.0) g/dL Hct (37.2-46.3) % MCH (27.0-32.0) pg MCHC (32.0-37.0) g/dL Immature Gran # (0.00-0.04) 10*3/uL APTT 90.8 H (22.0-30.0) sec Sodium (137-145) mmol/L Chloride (98-107) mmol/L Carbon Dioxide (22-30) mmol/L Glucose (74-99) mg/dL POC Glucose (mg/dL) 250 H 149 H (70-110) mg/dL AST (14-36) U/L Albumin (3.5-5.0) g/dL 01/21/25 01/21/25 01/21/25 Range/Units 07:23 07:23 07:23 RBC 4.09 L (4.10-5.20) 10*6/uL Hgb 10.3 L (12.0-15.0) g/dL Hct 35.3 L (37.2-46.3) % MCH 25.2 L (27.0-32.0) pg MCHC 29.2 L (32.0-37.0) g/dL Immature Gran # 0.05 H (0.00-0.04) 10*3/uL APTT 33.4 H (22.0-30.0) sec Sodium 135 L (137-145) mmol/L Chloride 109 H (98-107) mmol/L Carbon Dioxide 15 L (22-30) mmol/L Glucose 168 H (74-99) mg/dL POC Glucose (mg/dL) (70-110) mg/dL AST 55 H (14-36) U/L Albumin 3.3 L (3.5-5.0) g/dL Assessment and Plan Plan: Acute NSTEMI, troponin peaked at 38 and the patient remains on aspirin and IV heparin.The patient is also on metoprolol 25 mg p.o. twice daily. Cardiology on the case. Awaiting repeat echocardiogram. May possibly need another cardiac catheterization. Acute DKA with anion gap metabolic acidosis and hyperglycemia, resuscitated with IV fluids and insulin drip with subsequent closure of the anion gap. The patient has been transition to long-acting insulin and subsequently Lantus was placed on hold and the patient is receiving only sliding scale insulin coverage. Her oral intake is limited due to her underlying nausea. Based on that, we will put the patient only on sliding scale insulin coverage and monitor blood sugars closely. Coronary artery disease with recent cardiac catheterization in November 2024, 20 to 30% left main disease, 40 to 50% mid LAD disease and 100% proximal RCA. The patient also had collaterals from left to right and the patient was offered medical management Systolic heart failure, likely ischemic with an EF of around 20 to 25%, based on echo from November 2024 and EF of around 10 to 15%. An echo in July 2024 Persistent nausea and emesis, could be related to myocardial ischemia. CAT scan of the abdomen is negative and the patient has a large hiatal hernia. Currently on Zofran and the patient continues to have ongoing episodes of nausea and emesis. Consider cardiac ischemia contributing to her ongoing nausea. On today's evaluation, her nausea has subsided. Diabetes mellitus type 2 maintained on Lantus insulin 24 units daily in addition to sliding scale coverage on outpatient basis Lactic acidosis, improving Hypertension Hypothyroidism maintained on Synthroid History of atrial flutter, current cardiac rhythm is sinus with a intraventricular conduction delay and right axis deviation. The patient is maintained on a combination of metoprolol and Eliquis on outpatient basis Chronic hypoxic respiratory failure maintained on O2 at 2 L/min nasal cannula Spondylosis of the lumbar spine Obesity with a BMI of 38.8 Hyperlipidemia Plan Continue aspirin and IV heparin Repeat echocardiogram is pending Monitor urine output. cardiac catheterization to be performed today by Dr. Campbell Continue metoprolol 25 mg p.o. twice a day High-dose statins 80 mg Lipitor on a daily basis Management of CHF per cardiology. We replaced the bicarb deficit. The patient will be given 2 dose of sodium bicarb IV push and will be started on bicarb orally 650 mg p.o. daily. Monitor electrolytes Will restart Lantus insulin as of evening and monitor the blood sugar control. Nausea subsided. Zofran for nausea Condition is critical and the patient will be maintained in the intensive care unit. Will continue to follow. This evaluation was done more than 35 minutes. Time with Patient: Greater than 30
[2025-01-21 16:14] LABS: Glucose,Whole Blood 229 mg/dL (70-110)
[2025-01-21] MEDS: SODIUM CHLORIDE 0.9% 1,000 ML IV SCH (18:40)
[2025-01-21 20:31] LABS: Glucose,Whole Blood 273 mg/dL (70-110)
[2025-01-21] MEDS: SODIUM BICARBONATE TAB 650 MG TAB PO SCH (20:59)
[2025-01-21] MEDS ORDERED: INSULIN GLARGINE (LANTUS) 100 UNIT/ML SYR SQ SCH (21:00)
[2025-01-21] MEDS: APIXABAN 5 MG TAB PO SCH (21:00)
[2025-01-21] MEDS: INSULIN GLARGINE (LANTUS) 100 UNIT/ML SYR SQ SCH (21:07)
[2025-01-22] MEDS: CISATRACURIUM 2 MG/ML 5 ML VIAL IV ONE (04:09)
[2025-01-22] MEDS: FUROSEMIDE 10 MG/ML 4 ML VIAL IV SCH (04:09)
[2025-01-22] MEDS ORDERED: CISATRACURIUM 200 MG in SODIUM CHLORIDE 0.9% 180 ML IV SCH (04:15)
[2025-01-22 06:04] LABS: Glucose,Whole Blood 176 mg/dL (70-110)
[2025-01-22 06:19] LABS: ALT 11 U/L (4-34); AST 25 U/L (14-36); African American GFR (CKD) >90 (>60 ml/min/1.73 sqM); Albumin 2.7 g/dL (3.5-5.0); Alkaline Phosphatase 96 U/L (38-126); Anion Gap 2 mmol/L; Blood Urea Nitrogen 9 mg/dL (7-17); Calcium 8.7 mg/dL (8.4-10.2); Carbon Dioxide 28 mmol/L (22-30); Chloride 107 mmol/L (98-107); Glucose 181 mg/dL (74-99); Non-African American GFR(CKD) >90 (>60 ml/min/1.73 sqM); Potassium 3.8 mmol/L (3.5-5.1); Sodium 137 mmol/L (137-145); Total Protein 5.7 g/dL (6.3-8.2)
[2025-01-22 06:55] LABS: Basophils # (A) 0.03 10*3/uL (0.00-0.10); Basophils % (A) 0.4 %; Eosinophils # (A) 0.18 10*3/uL (0.04-0.35); Eosinophils % (A) 2.5 %; HCT 29.2 % (37.2-46.3); Lymphocytes # (A) 1.22 10*3/uL (0.90-5.00); Lymphocytes % (A) 16.8 %; MCH 24.9 pg (27.0-32.0); MCHC 29.5 g/dL (32.0-37.0); MCV 84.4 fL (80.0-97.0); Monocytes # (A) 0.70 10*3/uL (0.20-1.00); Monocytes % (A) 9.6 %; Neutrophils # (A) 5.10 10*3/uL (1.80-7.70); Neutrophils % (A) 70.0 %; Platelet Count 223 10*3/uL (140-440); RBC 3.46 10*6/uL (4.10-5.20); RDW 19.9 % (11.5-14.5); WBC 7.28 10*3/uL (4.50-10.00)
[2025-01-22 07:00] LABS: HGB 8.6 g/dL (12.0-15.0)
[2025-01-22] MEDS ORDERED: ARTIFICIAL TEARS-HYPROMELLOSE DROPS 15 ML BTL BOTH EYES SCH (08:00)
--- NOTE | 2025-01-22 09:37 | P.PN ---
Subjective Progress Note Date: 01/22/25 This is Chalo iRcardo NP, I'm dictating on behalf of Dr. Boone's H&P and A&P. Patient was interviewed and examined. Patient is a pleasant 69-year-old female, patient of Dr. Elkins who was ad mitted to the hospital with nausea vomiting secondary to diabetic ketoacidosis. Patient had elevated troponin, with a history of known coronary artery disease with recent angiogram in November showing intermediate to severe disease with right to left collaterals. Patient underwent a selective right and left coronary angiogram with left heart catheterization, which found a patent stent in the proximal LAD with mild to moderate diffuse disease involving the LAD with no evidence of high-grade stenosis, chronic total occlusion of small obtuse marginal branch of the left circumflex appearing to be the same as before, with chronic total occlusion of the RCA which is also the same as before, and eleva rylan left-sided filling pressures. Recommendations were medical treatment. This morning patient reports that she is feeling okay, states that she felt a little better yesterday. She is still recovering from the effects of the anesthesia and cardiac cath. She has had no chest pain or shortness of breath since yesterday. Cath site is intact with no bleeding. GENERAL: Well-appearing, well-nourished and in no acute distress. NECK: Supple without JVD or thyromegaly. LUNGS: Breath sounds clear to auscultation bilaterally. Respiration equal and unlabored. No wheezes, rales or rhonchi. HEART: Regular rate and rhythm without murmurs, rubs or gallops. S1 and S2 heard. EXTREMITIES: Normal range of motion, no edema. No clubbing or cyanosis. Peripheral pulses intact and strong. VITALS: Temp 97.7, pulse 79, respirations 16, blood pressure 112/65, O2 saturation 100% on 2 L TELEMETRY: Sinus mechanism LABS: White count 7.2, hemoglobin 8.6, platelets 223, sodium 137, potassium 3.8, chloride 107, BUN 9, creatinine 0.57, calcium 8.7 IMPRESSION: 1. Nausea and vomiting 2. DKA 3. Non-STEMI 4. Coronary artery disease with previous PCI 5. Ischemic cardiomyopathy, EF 25% 6. Hypertension 7. Hyperlipidemia 8. History of diabetes 9. History of hypothyroidism 10. History of atrial flutter 11. History of congestive heart failure with reduced EF PLAN: Continue medications as currently ordered. Patient may be discharged from a cardiology standpoint. Thank you for allowing us to participate in the care of this patient. Objective - Vital Signs Vital signs: Vital Signs Temp 97.7 F 01/22/25 08:22 Pulse 79 01/22/25 08:22 Resp 16 01/22/25 08:22 BP 112/65 01/22/25 08:22 Pulse Ox 100 01/22/25 08:22 FiO2 Intake & Output 01/21/25 01/22/25 01/22/25 18:59 06:59 18:59 Intake Total 725 450 23 Output Total 400 400 Balance 325 50 23 Weight 98.5 kg 100.2 kg Intake: IV 725 450 23 Invasive Line 3 8 Invasive Line 4 15 Sodium Chloride 0.9% 1, 75 000 ml @ 75 mls/hr IV . [id number] [facility] Rx#:[id number] Sodium Chloride 0.9% 1, 600 450 000 ml @ 75 mls/hr IV . [id number] [facility] Rx#:[id number] Output: Urine 400 400 Other: Voiding Method External Catheter External Catheter - Labs CBC & Chem 7: 01/22/25 05:44 01/22/25 05:44 Labs: Abnormal Lab Results - Last 24 Hours (Table) 01/21/25 01/21/25 01/21/25 Range/Units 11:41 16:13 20:30 RBC (4.10-5.20) 10*6/uL Hgb (12.0-15.0) g/dL Hct (37.2-46.3) % MCH (27.0-32.0) pg MCHC (32.0-37.0) g/dL Immature Gran # (0.00-0.04) 10*3/uL Glucose (74-99) mg/dL POC Glucose (mg/dL) 266 H 229 H 273 H (70-110) mg/dL Total Protein (6.3-8.2) g/dL Albumin (3.5-5.0) g/dL 01/22/25 01/22/25 01/22/25 Range/Units 05:44 05:44 06:02 RBC 3.46 L (4.10-5.20) 10*6/uL Hgb 8.6 L D (12.0-15.0) g/dL Hct 29.2 L (37.2-46.3) % MCH 24.9 L (27.0-32.0) pg MCHC 29.5 L (32.0-37.0) g/dL Immature Gran # 0.05 H (0.00-0.04) 10*3/uL Glucose 181 H (74-99) mg/dL POC Glucose (mg/dL) 176 H (70-110) mg/dL Total Protein 5.7 L (6.3-8.2) g/dL Albumin 2.7 L (3.5-5.0) g/dL
[2025-01-22 11:25] LABS: Glucose,Whole Blood 188 mg/dL (70-110)
--- NOTE | 2025-01-22 14:09 | P.PN ---
Subjective Progress Note Date: 01/22/25 This is a 69-year-old female with a previous medical history significant for hypertension and hypertensive cardiovascular disease, hyperlipidemia, hypothyroidism, chronic gastroesophageal reflux disease with esophagitis, type 1 diabetes mellitus currently on insulin pump, vitamin D deficiency, diabetic neuropathy, patient also had history of spondylosis of the lumbar spine status post lumbar laminectomy back in 07/01/2022 followed by a wound dehiscence at the [facility] of the lumbar area and she ended up going back for another surgical intervention 2022 followed by a wound care of the surgical site, patient recovered very well from that, patient apparently was recently hospitalized at [facility] for urine from August 21, 2024 till August 27, 2024 after she was admitted for what appears to be an unstable patient myocardial infarction status post left heart catheterization that showed evidence of 20 to 30% stenosis of the left main artery, 40 to 50% stenosis of the LAD where she had a previous stent, and 99% of the RCA with collaterals from left to right, no intervention was done, patient also did have acute blood loss anemia status post 1 unit of packed red blood cells procedure was seen in consultation by general surgery who is recommended not to do any intervention at this point in time, patient was last hospitalized on November 27, 2024 after she was admitted for non-ST elevation myocardial infarction and ischemic cardiomyopathy with ejection fraction of 10 to 15%, at that time she was sent back to endocrinology, patient was discharged recently, under the having an epidural injection. By the pain clinic on the 10th of this month, apparently she continues to yesterday with intractable nausea and vomiting not able to keep anything down, she was not in diabetic status at that time, she was given IV fluid resuscitation, she was given some insulin, she was sent home as outpatient, patient became a lot worse, she was started intractable nausea and vomiting and she was not keeping anything down, she became quite weak in general fatigue and she was brought to the ER again and she was found to be diabeticwith a bicarb level of 8 she was also found to have a lactic acidosis of 5, she was given IV fluid resuscitation, she was found to have a troponin level of 2 she was admitted to the hospital intensive care unit with a diagnosis of diabetic acidosis and lactic acidosis with non-ST elevation myocardial function, with cardiology consultation as well as pulmonary consultation was obtained. 01/19: Patient is laying down in bed in no apparent distress, she denies any chest pain at this time, she has no shortness of breath, her troponin is quite elevated, she was seen in consultation by cardiology, she has been started back on her metoprolol 25 mg orally twice every day, baby aspirin 81 mg once every day, Lipitor 80 mg once every day, she has been on heparin drip, she was seen in consultation by cardiology she has ruled in non-ST elevation OK, patient's chest pain-free at this point in time, she has underlying ischemic cardiomyopathy with ejection fraction of 15 %, we will continue to follow-up with the patient he was transition to Lantus 25 units at bedtime along with a sliding scale insulin as her anion gap has closed. 01/20: Patient is laying in her bed in no apparent distress, she is feeling better today than yesterday, yesterday she became quite confused, ended up going for a CT scan of the brain that was negative for acute infarct or bleed, chest x-ray showed pulmonary vascular congestion and cardiomegaly, patient need to be started back on her diuretics in the form of torsemide as well as potassium supplement, she was started yesterday on insulin drip as well she was kept on heparin drip, continue current treatment plan, keep the patient in ICU for now 01/21. Patient seen examined. States nausea and vomiting has resolved. Denies any chest pain or shortness of breath. 01/22. Patient seen and examined. Patient underwent right and left heart cath Patent stent in the proximal LAD with mild to moderate diffuse disease involving the LAD with no evidence of high-grade stenosis, Chronic total occlusion of small obtuse marginal branch of the left circumflex appeared to be the same as before, Chronic total occlusion of the RCA which is also the same as before, Elevated left-sided filling pressure. Labs reviewed showing WBC 9.28, hemoglobin 8.6, sodium 137, potassium 3.8, BUN 9, creatinine 0.5 REVIEW OF SYSTEMS: CONSTITUTIONAL: No fever, no malaise,. CARDIOVASCULAR: No chest pain, no palpitations, no syncope. PULMONARY: No shortness of breath, no cough, GASTROINTESTINAL: No diarrhea, no nausea, no vomiting, no abdominal pain. NEUROLOGICAL: No headaches, no weakness, PHYSICAL EXAMINATION: GENERAL: The patient is alert and oriented x3, not in any acute distress. Well developed, well nourished. HEENT: Pupils are round and equally reacting to light. EOMI. No scleral icterus. No conjunctival pallor. Normocephalic, atraumatic. No pharyngeal erythema. No thyromegaly. CARDIOVASCULAR: S1 and S2 present. No murmurs, rubs, or gallops. PULMONARY: Chest is clear to auscultation, no wheezing or crackles. ABDOMEN: Soft, nontender, nondistended, normoactive bowel sounds. No palpable organomegaly. MUSCULOSKELETAL: No joint swelling or deformity. EXTREMITIES: No cyanosis, clubbing, or pedal edema. NEUROLOGICAL: Gross neurological examination did not reveal any focal deficits. SKIN: No rashes. Assessment and plan 1. Acute anion gap metabolic acidosis due to diabetic ketoacidosis as well as lactic acidosis Monitor blood sugar levels, continue current insulin regimen Acute non-ST elevation OK Acute systolic CHF right and left heart cath Patent stent in the proximal LAD with mild to moderate diffuse disease involving the LAD with no evidence of high-grade stenosis, Chronic total occlusion of small obtuse marginal branch of the left circumflex appeared to be the same as before, Chronic total occlusion of the RCA which is also the same as before, Elevated left-sided filling pressure Send as noted, daily weights, currently on IV Lasix 40 mg every 12 Cardiology following 3. History of pulmonary embolism. Continue Eliquis 4. Paroxysmal atrial fibrillation/flutter. Continue patient on metoprolol 25 mg orally twice every day, continue heparin drip for now, 5. Hypertension and hypertensive cardiovascular disease. Continue patient on metoprolol 25 mg orally twice every day, 6. Hyperlipidemia. continue atorvastatin 80 mg orally once every day, monitor the patient the benefit, keep LDL 55-70. 7. Hypothyroidism. Continue patient on Synthroid 112 g orally once every day monitor TSH and free T4. 8. Diabetes mellitus type 1. Mild. We will try to transition back to Lantus and sliding scale insulin 9. GERD with esophagitis and had a hernia. Continue patient on omeprazole 20 mg mg once every day along with Pepcid 20 mg orally twice every day. 10. Obesity with obstructive sleep apnea and possible obesity hypoventilation syndrome patient will need to have a sleep study as an outpatient. 11. Vitamin D deficiency. Continue vitamin D3 2000 units once every day. 12. History of kidney stones. stable at this time Labs and medication were reviewed.. Continue same treatment. Continue with symptomatic treatment. Resume home medication. Monitor labs and vitals. DVT and GI prophylaxis. Further recommendations as per clinical course of the patient Dictation was produced using [employer] dictation software. please excuse any grammatical, word or spelling errors. Objective - Vital Signs Vital signs: Vital Signs Temp 98.1 F 01/22/25 11:31 Pulse 80 01/22/25 11:31 Resp 16 01/22/25 11:31 BP 110/67 01/22/25 11:31 Pulse Ox 100 01/22/25 11:31 FiO2 Intake & Output 01/21/25 01/22/25 01/22/25 18:59 06:59 18:59 Intake Total 725 450 93 Output Total 400 400 Balance 325 50 93 Weight 98.5 kg 100.2 kg Intake: IV 725 450 23 Invasive Line 3 8 Invasive Line 4 15 Sodium Chloride 0.9% 1, 75 000 ml @ 75 mls/hr IV . [id number] [facility] Rx#:[id number] Sodium Chloride 0.9% 1, 600 450 000 ml @ 75 mls/hr IV . [id number] [facility] Rx#:[id number] Oral 70 Output: Urine 400 400 Other: Voiding Method External Catheter External Catheter External Catheter - Labs CBC & Chem 7: 01/22/25 05:44 01/22/25 05:44 Labs: Abnormal Lab Results - Last 24 Hours (Table) 01/21/25 01/21/25 01/22/25 Range/Units 16:13 20:30 05:44 RBC 3.46 L (4.10-5.20) 10*6/uL Hgb 8.6 L D (12.0-15.0) g/dL Hct 29.2 L (37.2-46.3) % MCH 24.9 L (27.0-32.0) pg MCHC 29.5 L (32.0-37.0) g/dL Immature Gran # 0.05 H (0.00-0.04) 10*3/uL Glucose (74-99) mg/dL POC Glucose (mg/dL) 229 H 273 H (70-110) mg/dL Total Protein (6.3-8.2) g/dL Albumin (3.5-5.0) g/dL 01/22/25 01/22/25 01/22/25 Range/Units 05:44 06:02 11:24 RBC (4.10-5.20) 10*6/uL Hgb (12.0-15.0) g/dL Hct (37.2-46.3) % MCH (27.0-32.0) pg MCHC (32.0-37.0) g/dL Immature Gran # (0.00-0.04) 10*3/uL Glucose 181 H (74-99) mg/dL POC Glucose (mg/dL) 176 H 188 H (70-110) mg/dL Total Protein 5.7 L (6.3-8.2) g/dL Albumin 2.7 L (3.5-5.0) g/dL
--- NOTE | 2025-01-22 15:49 | P.PN ---
Subjective Progress Note Date: 01/22/25 This is a 69-year-old female patient being seen in the emergency department and the patient is going to be transferred to the ICU. The patient is known to have coronary artery disease and the patient has undergone recent cardiac catheterization in November 2024 revealing a 20 to 30% left main, 40 to 50% mid LAD, 100% proximal RCA with [id number] collaterals. Medical management was recommended. The patient also has cardiomyopathy with impaired LV function with an ejection fraction of 20 to 25% based on echocardiogram from November 2024. The patient was having persistent nausea and emesis on outpatient basis. She was unable to tolerate any form of oral intake and she quit taking her insulin the patient is diabetic. She used to be on insulin pump in the past and the patient is currently on Lantus insulin. Denies having any significant abdominal pain. She had been having emesis and nausea for the past 4 days at least. Based on that, the patient was came into the hospital and in the emergency department, the patient was found to have anion gap metabolic acidosis consistent with DKA. The patient had a serum bicarb of 7 with a gap of 36 and a blood sugar of 525. Normal renal function. Initial lactic acid level was at 4.5, troponin peaked at 38,000 consistent with acute non-ST segment elevation myocardial infarction. EKG from emergency department showed sinus rhythm with frequent ectopies, PVCs and interventricular conduction delay and right axis deviation. Accordingly, the patient was started on IV fluids. The patient was given a total of 2.5 L of normal saline and started on DKA protocol. The patient is currently on insulin drip for blood sugar control. Subsequent electrolytes showed improvement in the serum bicarb came up to 34 with a gap of 1 and the blood sugar is currently at 176. Lactic acid level dropped down to 3.2. The patient is awake and alert and communicating. Free of any chest pain. No ongoing nausea or emesis. She is also on IV heparin and cardiology consultation has been obtained. She remains on aspirin. She remains on metoprolol 25 mg p.o. twice daily. IV fluids has been switched to D5 half-normal saline which is currently running at a rate of 50 cc an hour. In terms of respiratory status, the patient is stable on 2 L of oxygen by nasal cannula with a pulse ox of 99%. CAT scan of the abdomen and pelvis showed normal appendix, normal bowel pattern, colonic diverticulosis and moderate degree of hiatal hernia. Chest x-ray showed moderate cardiomegaly with mild pulm vascular congestion and some atelectatic changes in the left lung b ase. Comorbidities include diabetes mellitus type 2, coronary artery disease, hypertension, hyperlipidemia, hypothyroidism, history of a flutter and CHF with impaired LV function. On 01/19/2025, the patient is being seen for a follow-up. The patient continues to have episodes of nausea. She had limited oral intake earlier this morning and she had another bout of emesis. She remains on oxygen at 2 L/min nasal cannula with a pulse ox of 99%. She was treated for an acute DKA and the patient was taken off the insulin drip and the patient was transition to long- acting insulin the patient is currently on Lantus insulin 30 units daily and NovoLog 8 units with meals and sliding scale coverage. Noted the patient has been able to eat properly due to persistent nausea for which the patient is r eceiving Zofran. She remains on D5 half-normal saline at rate of 50 cc an hour. The most recent blood work shows a sodium level of 131, serum bicarbonate 20 with a gap of 7. BUN 26 with a creatinine 0.9. Blood sugars remain somewhat elevated at 309. The patient's HbA1c came back at 10. LFTs are normal. The white cell count is 14.1. Hemoglobin 9.8 and a platelet count of 241. On a separate note, the patient had an acute NSTEMI and troponin peaked at 38 and the patient remains on IV heparin. She denies having any chest pain. The cardiac rhythm remained sinus. Repeat chest x-ray was done today and the patient continues to have cardiomegaly with mild pulmonary vascular congestion. C ardiology is on the case. The patient is being treated medically and no plans for any intervention for now. On 01/20/2025, the patient is being seen for a follow-up. Noted, the patient continues to have episodes of low urine output. The patient was given bolus of IV fluids yesterday for low urine output and low blood pressure. The patient received 500 cc of lactated Ringer bolus x 2. This afternoon, the patient developed again low urine output and the patient receiving another fluid bolus. Meanwhile, she is free of any chest pain. She is awake and alert. Denies having any significant shortness of breath. She remains on IV heparin. She is feeling less nauseated compared to yesterday. Noted the patient was having significant fluctuation in blood sugars. After being maintained on Lantus, the patient was taken off Lantus because of hyperglycemia and started on insulin drip and currently she is off the insulin drip and receiving only sliding scale insulin coverage. Electrolytes are stable. Sodium levels at 131, serum bicarb is 20 with a BUN of 21 and a creatinine of 0.7. WBC count is 7.7 with a hemoglobin 9.1 and a platelet count of 184. LFTs are normal. The patient rem ains on aspirin. The patient remains on IV heparin. The patient is also on metoprolol 25 mg p.o. twice a day. She is on Lipitor 80 mg p.o. daily. She is currently off diuretics. Cardiology is on the case regarding the acute NSTEMI. The chest x-ray from yesterday was consistent with cardiomegaly with mild pulm vessel congestion. Nevertheless, the patient's overall respiratory status is stable and the patient denies having any significant shortness of breath remains on 2 L of oxygen by nasal cannula with a pulse ox of 99%. On 01/21/2025, the patient is being seen for a follow-up. The patient is currently comfortable on 2 L of oxygen by nasal cannula and the patient is free of any chest pain. Nevertheless, the patient was having issues with low urine output and the patient was given several bolus of IV fluid a total of 1 L of IV fluid bolus was given yesterday and the patient currently is on normal saline at rate of 75 cc an hour. Urine output is improved. Overall fluid balance is +2.1 L over the past 24 hours and the patient is doing well. No hypotension. No pressors for now. The patient is scheduled to undergo a cardiac catheterization today. No significant nausea. No significant chest pain. No significant cardiac arrhythmias. The white cell count at 8.4 with a hemoglobin 10.3 and a platelet count of 190. Sodium is at 135, bicarb is at 15 with a gap of 11 and a BUN of 13 and a creatinine 0.6. The patient remains on aspirin. The patient remains on metoprolol 25 mg p.o. twice a day. The patient remains on IV heparin. The patient will be started back on Lantus insulin 12 units. In regards to the metabolic acidosis, this is a 9 anion gap metabolic acidosis and the bicarb deficit will be replaced accordingly. Cardiology on the case. On 01/14/2025, the patient is currently out of the intensive care unit. Still having episodes of nausea. The patient underwent a cardiac catheterization yesterday and the patient was found to have patent stent to the proximal LAD and mild to moderate diffuse disease involving the LAD without evidence of any high grade stenosis. There is chronic total occlusion of the small OM margin branch of the left circumflex and total occlusion of the RCA. The filling pressures were elevated. The patient had no intervention the patient will undergo medical treatment. She is currently calm and comfortable and she is currently on 2 L of oxygen by nasal cannula with a pulse ox of 99%. Blood sugars are being monitored and the patient is currently on Lantus insulin at 12 units nightly and sliding scale coverage. Rest of the medications are essentially unchanged. The patient remains on Lasix 40 mg IV every 12 hours. The patient remains on anticoagulation with Eliquis 5 mg p.o. twice daily. The patient is still on metoprolol 25 mg p.o. twice a day, and cardiology remains on the case. No other complaints otherwise for now. The white cell count at 7.2, hemoglobin 8.6 and a platelet count of 223. BUN is 9 with a creatinine of 0.57. Sodium levels at 137. Objective - Vital Signs Vital signs: Vital Signs Temp 97.7 F 01/22/25 08:22 Pulse 79 01/22/25 08:22 Resp 16 01/22/25 08:22 BP 112/65 01/22/25 08:22 Pulse Ox 100 01/22/25 08:22 FiO2 Intake & Output 01/21/25 01/22/25 01/22/25 18:59 06:59 18:59 Intake Total 725 450 93 Output Total 400 400 Balance 325 50 93 Weight 98.5 kg 100.2 kg Intake: IV 725 450 23 Invasive Line 3 8 Invasive Line 4 15 Sodium Chloride 0.9% 1, 75 000 ml @ 75 mls/hr IV . [id number] [facility] Rx#:[id number] Sodium Chloride 0.9% 1, 600 450 000 ml @ 75 mls/hr IV . [id number] [facility] Rx#:[id number] Oral 70 Output: Urine 400 400 Other: Voiding Method External Catheter External Catheter External Catheter - Exam The patient appeared well nourished and normally developed. Vital signs as documented. She is comfortable on 2 Liters/min, obese with a BMI of 38 Head exam is unremarkable. No scleral icterus or corneal arcus noted. Neck is without jugular venous distension, thyromegaly, or carotid bruits. Carotid upstrokes are brisk bilaterally. Lungs are clear to auscultation and percussion. Cardiac exam reveals the PMI to be normally sized and situated. Rhythm is regular. First and second heart sounds normal. No murmurs, rubs or gallops. Abdominal exam reveals normal bowel sounds, no masses, no organomegaly and no aortic enlargement. Extremities are nonedematous and both femoral and pedal pulses are normal. Examination of the skin revealed no evidence of significant rashes, suspicious appearing nevi or other concerning lesions. Neurologically, the patient is awake and alert and the patient does not have any focal neurological deficit. Cranial nerves are essentially intact. - Labs CBC & Chem 7: 01/22/25 05:44 01/22/25 05:44 Labs: Abnormal Lab Results - Last 24 Hours (Table) 01/21/25 01/21/25 01/21/25 Range/Units 11:41 16:13 20:30 RBC (4.10-5.20) 10*6/uL Hgb (12.0-15.0) g/dL Hct (37.2-46.3) % MCH (27.0-32.0) pg MCHC (32.0-37.0) g/dL Immature Gran # (0.00-0.04) 10*3/uL Glucose (74-99) mg/dL POC Glucose (mg/dL) 266 H 229 H 273 H (70-110) mg/dL Total Protein (6.3-8.2) g/dL Albumin (3.5-5.0) g/dL 01/22/25 01/22/25 01/22/25 Range/Units 05:44 05:44 06:02 RBC 3.46 L (4.10-5.20) 10*6/uL Hgb 8.6 L D (12.0-15.0) g/dL Hct 29.2 L (37.2-46.3) % MCH 24.9 L (27.0-32.0) pg MCHC 29.5 L (32.0-37.0) g/dL Immature Gran # 0.05 H (0.00-0.04) 10*3/uL Glucose 181 H (74-99) mg/dL POC Glucose (mg/dL) 176 H (70-110) mg/dL Total Protein 5.7 L (6.3-8.2) g/dL Albumin 2.7 L (3.5-5.0) g/dL Assessment and Plan Plan: Acute NSTEMI, troponin peaked at 38 and the patient remains on aspirin and IV heparin.The patient is also on metoprolol 25 mg p.o. twice daily. Cardiology on the case. Cardiac catheterization was repeated, no intervention was done. Please refer to the official cardiac catheterization report. The patient is free of any chest pain at this point in time and the patient is hemodynamically stable. Acute DKA with anion gap metabolic acidosis and hyperglycemia, resuscitated with IV fluids and insulin drip with subsequent closure of the anion gap. The patie nt has been transition to long-acting insulin and subsequently Lantus 12 units daily and a sliding scale coverage. Coronary artery disease with recent cardiac catheterization in November 2024, 20 to 30% left main disease, 40 to 50% mid LAD disease and 100% proximal RCA. The patient also had collaterals from left to right and the patient was offered medical management, repeat echocardiogram showed similar findings and no interventions to be done Systolic heart failure, likely ischemic with an EF of around 20 to 25%, based on echo from November 2024 and EF of around 10 to 15%. An echo in July 2024 Persistent nausea and emesis, could be related to myocardial ischemia. CAT scan of the abdomen is negative and the patient has a large hiatal hernia. Currently on Zofran and the patient continues to have ongoing episodes of nausea and emesis. Consider cardiac ischemia contributing to her ongoing nausea. On today's evaluation, her nausea has subsided. Diabetes mellitus type 2 maintained on Lantus insulin 24 units daily in addition to sliding scale coverage on outpatient basis Lactic acidosis, improving Hypertension Hypothyroidism maintained on Synthroid History of atrial flutter, current cardiac rhythm is sinus with a intraventricular conduction delay and right axis deviation. The patient is maintained on a combination of metoprolol and Eliquis on outpatient basis Chronic hypoxic respiratory failure maintained on O2 at 2 L/min nasal cannula Spondylosis of the lumbar spine Obesity with a BMI of 38.8 Hyperlipidemia Plan Continue supportive care. Post PA medical management. Continue aspirin. Suggest stopping the aspirin and putting the patient on a combination of Plavix and anticoagulation with Eliquis. Continue metoprolol 25 mg p.o. twice a day. Continue diuresis for another 24 hours with IV Lasix Continue Lantus insulin Patient is currently on 2 L of oxygen by nasal cannula Patient is currently on a cardiac telemetry unit. Will continue to follow.
[2025-01-22 16:39] LABS: Glucose,Whole Blood 250 mg/dL (70-110)
[2025-01-22] MEDS: METOCLOPRAMIDE 5 MG/ML 2 ML VIAL IVP SCH (17:26)
[2025-01-22 20:12] LABS: Glucose,Whole Blood 304 mg/dL (70-110)
[2025-01-23 06:11] LABS: Glucose,Whole Blood 68 mg/dL (70-110)
[2025-01-23 06:29] LABS: Glucose,Whole Blood 83 mg/dL (70-110)
[2025-01-23 11:25] LABS: Glucose,Whole Blood 167 mg/dL (70-110)
[2025-01-23 16:38] LABS: Glucose,Whole Blood 250 mg/dL (70-110)
--- NOTE | 2025-01-23 16:48 | P.PN ---
Subjective Progress Note Date: 01/23/25 This is a 69-year-old female with a previous medical history significant for hypertension and hypertensive cardiovascular disease, hyperlipidemia, hypothyroidism, chronic gastroesophageal reflux disease with esophagitis, type 1 diabetes mellitus currently on insulin pump, vitamin D deficiency, diabetic neuropathy, patient also had history of spondylosis of the lumbar spine status post lumbar laminectomy back in 07/01/2022 followed by a wound dehiscence at the [facility] of the lumbar area and she ended up going back for another surgical intervention 2022 followed by a wound care of the surgical site, patient recovered very well from that, patient apparently was recently hospitalized at [facility] for urine from August 21, 2024 till August 27, 2024 after she was admitted for what appears to be an unstable patient myocardial infarction status post left heart catheterization that showed evidence of 20 to 30% stenosis of the left main artery, 40 to 50% stenosis of the LAD where she had a previous stent, and 99% of the RCA with collaterals from left to right, no intervention was done, patient also did have acute blood loss anemia status post 1 unit of packed red blood cells procedure was seen in consultation by general surgery who is recommended not to do any intervention at this point in time, patient was last hospitalized on November 27, 2024 after she was admitted for non-ST elevation myocardial infarction and ischemic cardiomyopathy with ejection fraction of 10 to 15%, at that time she was sent back to endocrinology, patient was discharged recently, under the having an epidural injection. By the pain clinic on the 10th of this month, apparently she continues to yesterday with intractable nausea and vomiting not able to keep anything down, she was not in diabetic status at that time, she was given IV fluid resuscitation, she was given some insulin, she was sent home as outpatient, patient became a lot worse, she was started intractable nausea and vomiting and she was not keeping anything down, she became quite weak in general fatigue and she was brought to the ER again and she was found to be diabeticwith a bicarb level of 8 she was also found to have a lactic acidosis of 5, she was given IV fluid resuscitation, she was found to have a troponin level of 2 she was admitted to the hospital intensive care unit with a diagnosis of diabetic acidosis and lactic acidosis with non-ST elevation myocardial function, with cardiology consultation as well as pulmonary consultation was obtained. 01/19: Patient is laying down in bed in no apparent distress, she denies any chest pain at this time, she has no shortness of breath, her troponin is quite elevated, she was seen in consultation by cardiology, she has been started back on her metoprolol 25 mg orally twice every day, baby aspirin 81 mg once every day, Lipitor 80 mg once every day, she has been on heparin drip, she was seen in consultation by cardiology she has ruled in non-ST elevation AR, patient's chest pain-free at this point in time, she has underlying ischemic cardiomyopathy with ejection fraction of 15 %, we will continue to follow-up with the patient he was transition to Lantus 25 units at bedtime along with a sliding scale insulin as her anion gap has closed. 01/20: Patient is laying in her bed in no apparent distress, she is feeling better today than yesterday, yesterday she became quite confused, ended up going for a CT scan of the brain that was negative for acute infarct or bleed, chest x-ray showed pulmonary vascular congestion and cardiomegaly, patient need to be started back on her diuretics in the form of torsemide as well as potassium supplement, she was started yesterday on insulin drip as well she was kept on heparin drip, continue current treatment plan, keep the patient in ICU for now 01/21. Patient seen examined. States nausea and vomiting has resolved. Denies any chest pain or shortness of breath. 01/22. Patient seen and examined. Patient underwent right and left heart cath Patent stent in the proximal LAD with mild to moderate diffuse disease involving the LAD with no evidence of high-grade stenosis, Chronic total occlusion of small obtuse marginal branch of the left circumflex appeared to be the same as before, Chronic total occlusion of the RCA which is also the same as before, Elevated left-sided filling pressure. Labs reviewed showing WBC 9.28, hemoglobin 8.6, sodium 137, potassium 3.8, BUN 9, creatinine 0.5 01/23. Patient seen and examined. States she feels better. Breathing is improving. Continues to be on IV diuretics. REVIEW OF SYSTEMS: CONSTITUTIONAL: No fever, no malaise,. CARDIOVASCULAR: No chest pain, no palpitations, no syncope. PULMONARY: No shortness of breath, no cough, GASTROINTESTINAL: No diarrhea, no nausea, no vomiting, no abdominal pain. NEUROLOGICAL: No headaches, no weakness, PHYSICAL EXAMINATION: GENERAL: The patient is alert and oriented x3, not in any acute distress. Well developed, well nourished. HEENT: Pupils are round and equally reacting to light. EOMI. No scleral icterus. No conjunctival pallor. Normocephalic, atraumatic. No pharyngeal erythema. No thyromegaly. CARDIOVASCULAR: S1 and S2 present. No murmurs, rubs, or gallops. PULMONARY: Chest is clear to auscultation, no wheezing or crackles. ABDOMEN: Soft, nontender, nondistended, normoactive bowel sounds. No palpable organomegaly. MUSCULOSKELETAL: No joint swelling or deformity. EXTREMITIES: No cyanosis, clubbing, or pedal edema. NEUROLOGICAL: Gross neurological examination did not reveal any focal deficits. SKIN: No rashes. Assessment and plan 1. Acute anion gap metabolic acidosis due to diabetic ketoacidosis as well as lactic acidosis Monitor blood sugar levels, continue current insulin regimen, currently on sliding scale insulin and Lantu 10 units twice daily Acute non-ST elevation AR Acute systolic CHF right and left heart cath Patent stent in the proximal LAD with mild to moderate diffuse disease involving the LAD with no evidence of high-grade stenosis, Chronic total occlusion of small obtuse marginal branch of the left circumflex a ppeared to be the same as before, Chronic total occlusion of the RCA which is also the same as before, Elevated left-sided filling pressure Strict I's and O's, daily weights, currently on IV Lasix 40 mg every 12 Cardiology following 3. History of pulmonary embolism. Continue Eliquis 4. Paroxysmal atrial fibrillation/flutter. Continue patient on metoprolol 25 mg orally twice every day, continue heparin drip for now, 5. Hypertension and hypertensive cardiovascular disease. Continue patient on metoprolol 25 mg orally twice every day, 6. Hyperlipidemia. continue atorvastatin 80 mg orally once every day, monitor the patient the benefit, keep LDL 55-70. 7. Hypothyroidism. Continue patient on Synthroid 112 g orally once every day monitor TSH and free T4. 8. Diabetes mellitus type 1. continue current insulin regimen, currently on sliding scale insulin and Lantu 10 units twice daily 9. GERD with esophagitis and had a hernia. Continue patient on omeprazole 20 mg mg once every day along with Pepcid 20 mg orally twice every day. 10. Obesity with obstructive sleep apnea and possible obesity hypoventilation syndrome patient will need to have a sleep study as an outpatient. 11. Vitamin D deficiency. Continue vitamin D3 2000 units once every day. 12. History of kidney stones. stable at this time Labs and medication were reviewed.. Continue same treatment. Continue with symptomatic treatment. Resume home medication. Monitor labs and vitals. DVT and GI prophylaxis. Further recommendations as per clinical course of the patient Dictation was produced using [employer] dictation software. please excuse any grammatical, word or spelling errors. Objective - Vital Signs Vital signs: Vital Signs Temp 98.2 F 01/23/25 15:00 Pulse 80 01/23/25 15:00 Resp 18 01/23/25 15:00 BP 114/65 01/23/25 15:00 Pulse Ox 100 01/23/25 15:00 FiO2 Intake & Output 01/22/25 01/23/25 01/23/25 18:59 06:59 18:59 Intake Total 93 20 Output Total 1100 400 700 Balance -8305 -078 -700 Weight 93.9 kg Intake: IV 23 20 Invasive Line 3 8 Invasive Line 4 15 20 Oral 70 Output: Urine 1100 400 700 Other: Voiding Method External Catheter External Catheter External Catheter # Voids 3 - Labs CBC & Chem 7: 01/22/25 05:44 01/22/25 05:44 Labs: Abnormal Lab Results - Last 24 Hours (Table) 01/22/25 01/23/25 01/23/25 Range/Units 20:10 06:10 11:24 POC Glucose (mg/dL) 304 H 68 L 167 H (70-110) mg/dL 01/23/25 Range/Units 16:35 POC Glucose (mg/dL) 250 H (70-110) mg/dL
--- NOTE | 2025-01-23 18:34 | P.PN ---
Subjective Progress Note Date: 01/23/25 This is a 69-year-old female patient being seen in the emergency department and the patient is going to be transferred to the ICU. The patient is known to have coronary artery disease and the patient has undergone recent cardiac catheterization in November 2024 revealing a 20 to 30% left main, 40 to 50% mid LAD, 100% proximal RCA with [id number] collaterals. Medical management was recommended. The patient also has cardiomyopathy with impaired LV function with an ejection fraction of 20 to 25% based on echocardiogram from November 2024. The patient was having persistent nausea and emesis on outpatient basis. She was unable to tolerate any form of oral intake and she quit taking her insulin the patient is diabetic. She used to be on insulin pump in the past and the patient is currently on Lantus insulin. Denies having any significant abdominal pain. She had been having emesis and nausea for the past 4 days at least. Based on that, the patient was came into the hospital and in the emergency department, the patient was found to have anion gap metabolic acidosis consistent with DKA. The patient had a serum bicarb of 7 with a gap of 36 and a blood sugar of 525. Normal renal function. Initial lactic acid level was at 4.5, troponin peaked at 38,000 consistent with acute non-ST segment elevation myocardial infarction. EKG from emergency department showed sinus rhythm with frequent ectopies, PVCs and interventricular conduction delay and right axis deviation. Accordingly, the patient was started on IV fluids. The patient was given a total of 2.5 L of normal saline and started on DKA protocol. The patient is currently on insulin drip for blood sugar control. Subsequent electrolytes showed improvement in the serum bicarb came up to 34 with a gap of 1 and the blood sugar is currently at 176. Lactic acid level dropped down to 3.2. The patient is awake and alert and communicating. Free of any chest pain. No ongoing nausea or emesis. She is also on IV heparin and cardiology consultation has been obtained. She remains on aspirin. She remains on metoprolol 25 mg p.o. twice daily. IV fluids has been switched to D5 half-normal saline which is currently running at a rate of 50 cc an hour. In terms of respiratory status, the patient is stable on 2 L of oxygen by nasal cannula with a pulse ox of 99%. CAT scan of the abdomen and pelvis showed normal appendix, normal bowel pattern, colonic diverticulosis and moderate degree of hiatal hernia. Chest x-ray showed moderate cardiomegaly with mild pulm vascular congestion and some atelectatic changes in the left lung b ase. Comorbidities include diabetes mellitus type 2, coronary artery disease, hypertension, hyperlipidemia, hypothyroidism, history of a flutter and CHF with impaired LV function. On 01/19/2025, the patient is being seen for a follow-up. The patient continues to have episodes of nausea. She had limited oral intake earlier this morning and she had another bout of emesis. She remains on oxygen at 2 L/min nasal cannula with a pulse ox of 99%. She was treated for an acute DKA and the patient was taken off the insulin drip and the patient was transition to long- acting insulin the patient is currently on Lantus insulin 30 units daily and NovoLog 8 units with meals and sliding scale coverage. Noted the patient has been able to eat properly due to persistent nausea for which the patient is r eceiving Zofran. She remains on D5 half-normal saline at rate of 50 cc an hour. The most recent blood work shows a sodium level of 131, serum bicarbonate 20 with a gap of 7. BUN 26 with a creatinine 0.9. Blood sugars remain somewhat elevated at 309. The patient's HbA1c came back at 10. LFTs are normal. The white cell count is 14.1. Hemoglobin 9.8 and a platelet count of 241. On a separate note, the patient had an acute NSTEMI and troponin peaked at 38 and the patient remains on IV heparin. She denies having any chest pain. The cardiac rhythm remained sinus. Repeat chest x-ray was done today and the patient continues to have cardiomegaly with mild pulmonary vascular congestion. C ardiology is on the case. The patient is being treated medically and no plans for any intervention for now. On 01/20/2025, the patient is being seen for a follow-up. Noted, the patient continues to have episodes of low urine output. The patient was given bolus of IV fluids yesterday for low urine output and low blood pressure. The patient received 500 cc of lactated Ringer bolus x 2. This afternoon, the patient developed again low urine output and the patient receiving another fluid bolus. Meanwhile, she is free of any chest pain. She is awake and alert. Denies having any significant shortness of breath. She remains on IV heparin. She is feeling less nauseated compared to yesterday. Noted the patient was having significant fluctuation in blood sugars. After being maintained on Lantus, the patient was taken off Lantus because of hyperglycemia and started on insulin drip and currently she is off the insulin drip and receiving only sliding scale insulin coverage. Electrolytes are stable. Sodium levels at 131, serum bicarb is 20 with a BUN of 21 and a creatinine of 0.7. WBC count is 7.7 with a hemoglobin 9.1 and a platelet count of 184. LFTs are normal. The patient rem ains on aspirin. The patient remains on IV heparin. The patient is also on metoprolol 25 mg p.o. twice a day. She is on Lipitor 80 mg p.o. daily. She is currently off diuretics. Cardiology is on the case regarding the acute NSTEMI. The chest x-ray from yesterday was consistent with cardiomegaly with mild pulm vessel congestion. Nevertheless, the patient's overall respiratory status is stable and the patient denies having any significant shortness of breath remains on 2 L of oxygen by nasal cannula with a pulse ox of 99%. On 01/21/2025, the patient is being seen for a follow-up. The patient is currently comfortable on 2 L of oxygen by nasal cannula and the patient is free of any chest pain. Nevertheless, the patient was having issues with low urine output and the patient was given several bolus of IV fluid a total of 1 L of IV fluid bolus was given yesterday and the patient currently is on normal saline at rate of 75 cc an hour. Urine output is improved. Overall fluid balance is +2.1 L over the past 24 hours and the patient is doing well. No hypotension. No pressors for now. The patient is scheduled to undergo a cardiac catheterization today. No significant nausea. No significant chest pain. No significant cardiac arrhythmias. The white cell count at 8.4 with a hemoglobin 10.3 and a platelet count of 190. Sodium is at 135, bicarb is at 15 with a gap of 11 and a BUN of 13 and a creatinine 0.6. The patient remains on aspirin. The patient remains on metoprolol 25 mg p.o. twice a day. The patient remains on IV heparin. The patient will be started back on Lantus insulin 12 units. In regards to the metabolic acidosis, this is a 9 anion gap metabolic acidosis and the bicarb deficit will be replaced accordingly. Cardiology on the case. On 01/14/2025, the patient is currently out of the intensive care unit. Still having episodes of nausea. The patient underwent a cardiac catheterization yesterday and the patient was found to have patent stent to the proximal LAD and mild to moderate diffuse disease involving the LAD without evidence of any high grade stenosis. There is chronic total occlusion of the small OM margin branch of the left circumflex and total occlusion of the RCA. The filling pressures were elevated. The patient had no intervention the patient will undergo medical treatment. She is currently calm and comfortable and she is currently on 2 L of oxygen by nasal cannula with a pulse ox of 99%. Blood sugars are being monitored and the patient is currently on Lantus insulin at 12 units nightly and sliding scale coverage. Rest of the medications are essentially unchanged. The patient remains on Lasix 40 mg IV every 12 hours. The patient remains on anticoagulation with Eliquis 5 mg p.o. twice daily. The patient is still on metoprolol 25 mg p.o. twice a day, and cardiology remains on the case. No other complaints otherwise for now. The white cell count at 7.2, hemoglobin 8.6 and a platelet count of 223. BUN is 9 with a creatinine of 0.57. Sodium levels at 137. On 01/23/2025, the patient having no significant complaints. No nausea. No emesis. No chest pain. No shortness of breath. Hemodynamically stable and the patient is 2 L of Oxygen by Nasal Cannula with a Pulse Ox of 99%. Medications Remain Unchanged. She Remains on Anticoagulation with Eliquis 5 Mg P.O. Twice a Day. She Remains on Aspirin. She Is Also on Lasix 40 Mg IV Every 12 Hours. She Has Been Negative Fluid Balance of 1.3 L over the past 24 Hours. No New Labs Are Available from Today. Renal Function from Yesterday Was Stable. Rest of Electrolytes Are Also within Normal Limits. She Has Cardiomyopathy. She Is Postcardiac Catheterization. Metoprolol Is at a Dose of 25 Mg Twice a Day. The Patient Is Also on Lantus Insulin, and Lipitor. Objective - Vital Signs Vital signs: Vital Signs Temp 97.9 F 01/23/25 07:39 Pulse 78 01/23/25 07:39 Resp 20 01/23/25 07:39 BP 97/63 01/23/25 07:39 Pulse Ox 98 01/23/25 07:39 FiO2 Intake & Output 01/22/25 01/23/25 01/23/25 18:59 06:59 18:59 Intake Total 93 20 Output Total 1100 400 700 Balance -1007 -380 -700 Weight 93.9 kg Intake: IV 23 20 Invasive Line 3 8 Invasive Line 4 15 20 Oral 70 Output: Urine 1100 400 700 Other: Voiding Method External Catheter External Catheter External Catheter # Voids 3 - Exam The patient appeared well nourished and normally developed. Vital signs as documented. She is comfortable on 2 Liters/min, obese with a BMI of 38 Head exam is unremarkable. No scleral icterus or corneal arcus noted. Neck is without jugular venous distension, thyromegaly, or carotid bruits. Carotid upstrokes are brisk bilaterally. Lungs are clear to auscultation and percussion. Cardiac exam reveals the PMI to be normally sized and situated. Rhythm is regular. First and second heart sounds normal. No murmurs, rubs or gallops. Abdominal exam reveals normal bowel sounds, no masses, no organomegaly and no aortic enlargement. Extremities are nonedematous and both femoral and pedal pulses are normal. Examination of the skin revealed no evidence of significant rashes, suspicious appearing nevi or other concerning lesions. Neurologically, the patient is awake and alert and the patient does not have any focal neurological deficit. Cranial nerves are essentially intact. - Labs CBC & Chem 7: 01/22/25 05:44 01/22/25 05:44 Labs: Abnormal Lab Results - Last 24 Hours (Table) 01/22/25 01/22/25 01/22/25 Range/Units 11:24 16:37 20:10 POC Glucose (mg/dL) 188 H 250 H 304 H (70-110) mg/dL 01/23/25 Range/Units 06:10 POC Glucose (mg/dL) 68 L (70-110) mg/dL Assessment and Plan Plan: Acute NSTEMI, troponin peaked at 38 and the patient remains on aspirin and IV heparin.The patient is also on metoprolol 25 mg p.o. twice daily. Cardiology on the case. Cardiac catheterization was repeated, no intervention was done. Plea se refer to the official cardiac catheterization report. The patient is free of any chest pain at this point in time and the patient is hemodynamically stable. Acute DKA with anion gap metabolic acidosis and hyperglycemia, resuscitated with IV fluids and insulin drip with subsequent closure of the anion gap. The patient has been transition to long-acting insulin and subsequently Lantus 12 units daily and a sliding scale coverage. Coronary artery disease with recent cardiac catheterization in November 2024, 20 to 30% left main disease, 40 to 50% mid LAD disease and 100% proximal RCA. The patient also had collaterals from left to right and the patient was offered medical management, repeat echocardiogram showed similar findings and no interventions to be done Systolic heart failure, likely ischemic with an EF of around 20 to 25%, based on echo from November 2024 and EF of around 10 to 15%. An echo in July 2024 Persistent nausea and emesis, could be related to myocardial ischemia. CAT scan of the abdomen is negative and the patient has a large hiatal hernia. Currently on Zofran and the patient continues to have ongoing episodes of nausea and emesis. Consider cardiac ischemia contributing to her ongoing nausea. On today's evaluation, her nausea has subsided. Diabetes mellitus type 2 maintained on Lantus insulin 24 units daily in addition to sliding scale coverage on outpatient basis Lactic acidosis, improving Hypertension Hypothyroidism maintained on Synthroid History of atrial flutter, current cardiac rhythm is sinus with a intraventricular conduction delay and right axis deviation. The patient is maintained on a combination of metoprolol and Eliquis on outpatient basis Chronic hypoxic respiratory failure maintained on O2 at 2 L/min nasal cannula Spondylosis of the lumbar spine Obesity with a BMI of 38.8 Hyperlipidemia Plan Continue supportive care. Post [place] medical management. Continue aspirin. Suggest stopping the aspirin and putting the patient on a combination of Plavix and anticoagulation with Eliquis. Continue metoprolol 25 mg p.o. twice a day. Change Lasix to 40 mg p.o. twice a day Continue Lantus insulin Patient is currently on 2 L of oxygen by nasal cannula Patient is currently on a cardiac telemetry unit.
[2025-01-23 19:48] LABS: Glucose,Whole Blood 243 mg/dL (70-110)
[2025-01-23] MEDS: INSULIN GLARGINE (LANTUS) 100 UNIT/ML SYR SQ SCH (20:03)
[2025-01-24 05:42] LABS: Glucose,Whole Blood 134 mg/dL (70-110)
[2025-01-24 06:39] LABS: Basophils # (A) 0.04 10*3/uL (0.00-0.10); Basophils % (A) 0.4 %; Eosinophils # (A) 0.27 10*3/uL (0.04-0.35); Eosinophils % (A) 2.9 %; HCT 29.5 % (37.2-46.3); HGB 8.9 g/dL (12.0-15.0); Lymphocytes # (A) 1.75 10*3/uL (0.90-5.00); Lymphocytes % (A) 19.0 %; MCH 25.3 pg (27.0-32.0); MCHC 30.2 g/dL (32.0-37.0); MCV 83.8 fL (80.0-97.0); Monocytes # (A) 1.01 10*3/uL (0.20-1.00); Monocytes % (A) 11.0 %; Neutrophils # (A) 6.10 10*3/uL (1.80-7.70); Neutrophils % (A) 66.3 %; Platelet Count 263 10*3/uL (140-440); RBC 3.52 10*6/uL (4.10-5.20); RDW 19.9 % (11.5-14.5); WBC 9.21 10*3/uL (4.50-10.00)
[2025-01-24 06:58] LABS: ALT 10 U/L (4-34); AST 24 U/L (14-36); African American GFR (CKD) >90 (>60 ml/min/1.73 sqM); Albumin 2.8 g/dL (3.5-5.0); Alkaline Phosphatase 93 U/L (38-126); Anion Gap 5 mmol/L; Blood Urea Nitrogen 8 mg/dL (7-17); Calcium 8.5 mg/dL (8.4-10.2); Carbon Dioxide 31 mmol/L (22-30); Chloride 101 mmol/L (98-107); Glucose 127 mg/dL (74-99); Non-African American GFR(CKD) 88 (>60 ml/min/1.73 sqM); Potassium 3.7 mmol/L (3.5-5.1); Sodium 137 mmol/L (137-145); Total Protein 5.7 g/dL (6.3-8.2)
[2025-01-24] MEDS: FUROSEMIDE 40 MG TAB PO SCH (07:32)
[2025-01-24 10:12] LABS: Glucose,Whole Blood 146 mg/dL (70-110)
[2025-01-24] MEDS: HYDROcodone/APAP 10-325MG 1 EACH TAB PO PRN (10:45)
[2025-01-24 11:17] LABS: Glucose,Whole Blood 213 mg/dL (70-110)
[2025-01-24 16:32] LABS: Glucose,Whole Blood 235 mg/dL (70-110)
--- NOTE | 2025-01-24 19:28 | P.PN ---
Subjective Progress Note Date: 01/24/25 HISTORY OF PRESENT ILLNESS: This is a 69-year-old female with a previous medical history signif icant for hypertension and hypertensive cardiovascular disease, hyperlipidemia, hypothyroidism, chronic gastroesophageal reflux disease with esophagitis, type 1 diabetes mellitus currently on insulin pump, vitamin D deficiency, diabetic neuropathy, patient also had history of spondylosis of the lumbar spine status post lumbar laminectomy back in 07/01/2022 followed by a wound dehiscence at the [facility] of the lumbar area and she ended up going back for another surgical intervention 2022 followed by a wound care of the surgical site, patient recovered very well from that, patient apparently was recently hospitalized at [facility] for urine from August 21, 2024 till August 27, 2024 after she was admitted for what appears to be an unstable patient myocardial infarction status post left heart catheterization that showed evidence of 20 to 30% stenosis of the left main artery, 40 to 50% stenosis of the LAD where she had a previous stent, and 99% of the RCA with collaterals from left to right, no intervention was done, patient also did have acute blood loss anemia status post 1 unit of packed red blood cells procedure was seen in consultation by general surgery who is recommended not to do any intervention at this point in time, patient was last hospitalized on November 27, 2024 after she was admitted for non-ST elevation myocardial infarction and ischemic cardiomyopathy with ejection fraction of 10 to 15%, at that time she was sent back to endocrinology, patient was discharged recently, under the having an epidural injection. By the pain clinic on the of this month, apparently she continues to yesterday with intractable nausea and vomiting not able to keep anything down, she was not in diabetic status at that time, she was given IV fluid resuscitation, she was given some insulin, she was sent home as outpatient, patient became a lot worse, she was started intractable nausea and vomiting and she was not keeping anything down, she became quite weak in general fatigue and she was brought to the ER again and she was found to be diabeticwith a bicarb level of 8 she was also found to have a lactic acidosis of 5, she was given IV fluid resuscitation, she was found to have a troponin level of 2 she was admitted to the hospital intensive care unit with a diagnosis of diabetic acidosis and lactic acidosis with non-ST elevation myocardial function, with cardiology consultation as well as pulmonary consultation was obtained. 01/19: Patient is laying down in bed in no apparent distress, she denies any chest pain at this time, she has no shortness of breath, her troponin is quite elevated, she was seen in consultation by cardiology, she has been started back on her metoprolol 25 mg orally twice every day, baby aspirin 81 mg once every day, Lipitor 80 mg once every day, she has been on heparin drip, she was seen in consultation by cardiology she has ruled in non-ST elevation [place], patient's chest pain-free at this point in time, she has underlying ischemic cardiomyopathy with ejection fraction of 15 %, we will continue to follow-up with the patient he was transition to Lantus 25 units at bedtime along with a sliding scale insulin as her anion gap has closed. 01/20: Patient is laying in her bed in no apparent distress, she is feeling better today than yesterday, yesterday she became quite confused, ended up going for a CT scan of the brain that was negative for acute infarct or bleed, chest x-ray showed pulmonary vascular congestion and cardiomegaly, patient need to be started back on her diuretics in the form of torsemide as well as potassium supplement, she was started yesterday on insulin drip as well she was kept on heparin drip, continue current treatment plan, keep the patient in ICU for now. 01/24: Patient is resting in bed in no apparent distress. She has been transferred out of the intensive care unit over the weekend. On 01/21, patient underwent cardiac catheterization with Dr. Campbell which revealed patent stent in the proximal LAD with mild to moderate diffuse disease involving the LAD with no evidence of high-grade stenosis. Chronic total occlusion of the small obtuse marginal branch of the left circumflex appears to be the same as before. Chronic total occlusion of the RCA which is also the same as before. Elevated left-sided filling pressures. REVIEW OF SYSTEMS: Constitutional: No documented fever, no chills, no night sweats. significant weight gain No weakness, fatigue or lethargy. No daytime sleepiness. HEENT: No headache. No blurred vision or double vision, no loss of vision. No loss of Hearing, no ringing in the ears, no dizziness. No nasal drainage or congestion. No epistaxis. No sore throat. Lungs: positive for shortness of breath, occasional cough, no sputum production. No wheezing. Reports dyspnea with activity, positive for orthopneam and PND Cardiovascular: No chest pain, positive for mild lower extremity edema. positive for palpitations. no paroxysmal nocturnal dyspnea. no orthopnea. No lightheadedness or dizziness. No syncopal episodes. Abdominal: Reports no abdominal pain. positive for nausea, vomiting. No diarrhea. No constipation. No bloody or tarry stools reports loss of appetite. Genitourinary: No dysuria, increased frequency, urgency. No urinary retention. Musculoskeletal: No myalgias. positive for muscle weakness, positive for gait dysfunction, no frequent falls. positive for back pain. No neck pain. Integumentary: No wounds, no lesions. No rash or pruritus. Positive for bruising to bilateral lower extremities. No change in hair or nails. Neurologic: No aphasia. No facial droop. No change in mentation. No head injury. No headache. Right lower extremity weakness, positive for paresthesia. Psychiatric: Positive depression. No anxiety. No mood swings. Endocrine: No abnormal blood sugars. No weight change. PHYSICAL EXAMINATION: General: this is a 69-year-old female laying down in bed in minimal distress HEENT: Head is atraumatic, normocephalic, pupils were equal round reactive to light and recommendation, extraocular muscle movement were intact, sclera nonicteric, conjunctivae were pale, mucous membranes of the mouth are somewhat dry. Neck: Supple, no JVP, normal carotid upstroke bilaterally, no lymphadenopathy. Chest: Decreased breath sounds at the bases, few rhonchi, no expiratory wheezes, no chest wall tenderness, no intercostal retractions Heart: First heart sound is normal, second heart sound is normal there is systolic ejection murmur 2/6 located in the left sternal border Abdomen: Soft, nontender, nondistended, positive bowel sounds. 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 Skin-Prep. ASSESSMENT AND PLAN: 1. Acute anion gap metabolic acidosis due to diabetic ketoacidosis as well as lactic acidosis patient was placed back on insulin drip at this point in time, we will try to transition back into insulin Lantus along with a sliding scale insulin. Patient is not eating much at this point in time 2. Acute non-ST elevation [place] in a patient with prior history coronary artery disease status post PCI of the LAD with recent left heart catheterization that was done July 2024 that showed evidence of left main disease 20 to 30%, LAD 4050% stenosis where the stent is and RCA 99% stenosis with collaterals from left to right. Patient is status post cardiac catheterization on 01/21 which revealed patent stent in the proximal LAD with no progression of disease. Continue patient on metoprolol 25 mg orally twice every day, aspirin 81 mg once every day, also continue patient on atorvastatin 40 mg orally once every day, keep LDL 55-70 continue heparin drip. Cardiology consultation appreciated. 3. History of pulmonary embolism. Continue patient on Eliquis 5 mg orally twice every day for life. 4. Paroxysmal atrial fibrillation/flutter. Continue patient on metoprolol 25 mg orally twice every day, continue Eliquis 5 mg orally twice every day for life. 5. Hypertension and hypertensive cardiovascular disease. Continue patient on metoprolol 25 mg orally twice every day, her blood pressure appears to be soft at this time, continue to monitor the patient very closely. 6. Hyperlipidemia. continue atorvastatin 80 mg orally once every day, monitor the patient the benefit, keep LDL 55-70. 7. Hypothyroidism. Continue patient on Synthroid 112 g orally once every day monitor TSH and free T4. 8. Diabetes mellitus type 1. Continue Lantus 10 units subcutaneously twice every day along with a sliding scale insulin for now. 9. GERD with esophagitis and hiatal hernia. Continue Protonix 40 mg orally once every day. 10. Obesity with obstructive sleep apnea and possible obesity hypoventilation syndrome patient will need to have a sleep study as an outpatient. 11. Vitamin D deficiency. Continue vitamin D3 2000 units once every day. 12. History of kidney stones. stable at this time 13. DVT prophylaxis. Continue Eliquis 5 mg orally twice every day. 14. GI prophylaxis. Continue Protonix 40 mg orally once every day. 15. Chronic low back pain due to spondylosis of the lumbar spine continue with hydrocodone and increase to every 6 hours as needed, Physical therapy evaluation. 16. History of gout. Continue patient on allopurinol 100 mg orally once every day. 17. Medical debility. Physical therapy evaluation. 18. Social consultation for discharge planning. 19. Likely home tomorrow morning Objective - Vital Signs Vital signs: Vital Signs Temp 98.0 F 01/24/25 07:28 Pulse 96 01/24/25 07:28 Resp 18 01/24/25 07:28 BP 127/69 01/24/25 07:28 Pulse Ox 100 01/24/25 07:28 FiO2 Intake & Output 01/23/25 01/24/25 01/24/25 18:59 06:59 18:59 Intake Total 20 Output Total 1200 300 Balance -1200 -280 Weight 94 kg Intake: IV 20 Invasive Line 4 20 Output: Urine 1200 300 Other: Voiding Method External Catheter External Catheter External Catheter - Labs CBC & Chem 7: 01/24/25 05:22 01/24/25 05:22 Labs: Abnormal Lab Results - Last 24 Hours (Table) 01/18/25 01/23/25 01/23/25 Range/Units 13:03 11:24 16:35 RBC (4.10-5.20) 10*6/uL Hgb (12.0-15.0) g/dL Hct (37.2-46.3) % MCH (27.0-32.0) pg MCHC (32.0-37.0) g/dL Monocytes # (0.20-1.00) 10*3/uL Carbon Dioxide (22-30) mmol/L Glucose (74-99) mg/dL POC Glucose (mg/dL) 146 H 167 H 250 H (70-110) mg/dL Total Protein (6.3-8.2) g/dL Albumin (3.5-5.0) g/dL 01/23/25 01/24/25 01/24/25 Range/Units 19:47 05:22 05:22 RBC 3.52 L (4.10-5.20) 10*6/uL Hgb 8.9 L (12.0-15.0) g/dL Hct 29.5 L (37.2-46.3) % MCH 25.3 L (27.0-32.0) pg MCHC 30.2 L (32.0-37.0) g/dL Monocytes # 1.01 H (0.20-1.00) 10*3/uL Carbon Dioxide 31 H (22-30) mmol/L Glucose 127 H (74-99) mg/dL POC Glucose (mg/dL) 243 H (70-110) mg/dL Total Protein 5.7 L (6.3-8.2) g/dL Albumin 2.8 L (3.5-5.0) g/dL 01/24/ Range/Units 05:40 RBC (4.10-5.20) 10*6/uL Hgb (12.0-15.0) g/dL Hct (37.2-46.3) % MCH (27.0-32.0) pg MCHC (32.0-37.0) g/dL Monocytes # (0.20-1.00) 10*3/uL Carbon Dioxide (22-30) mmol/L Glucose (74-99) mg/dL POC Glucose (mg/dL) 134 H (70-110) mg/dL Total Protein (6.3-8.2) g/dL Albumin (3.5-5.0) g/dL
[2025-01-24 20:04] LABS: Glucose,Whole Blood 250 mg/dL (70-110)
[2025-01-25 05:48] LABS: Glucose,Whole Blood 134 mg/dL (70-110)
[2025-01-25 06:54] LABS: Basophils # (A) 0.04 10*3/uL (0.00-0.10); Basophils % (A) 0.5 %; Eosinophils # (A) 0.30 10*3/uL (0.04-0.35); Eosinophils % (A) 4.1 %; HCT 30.0 % (37.2-46.3); HGB 8.9 g/dL (12.0-15.0); Lymphocytes # (A) 1.80 10*3/uL (0.90-5.00); Lymphocytes % (A) 24.4 %; MCH 24.5 pg (27.0-32.0); MCHC 29.7 g/dL (32.0-37.0); MCV 82.6 fL (80.0-97.0); Monocytes # (A) 1.03 10*3/uL (0.20-1.00); Monocytes % (A) 14.0 %; Neutrophils # (A) 4.17 10*3/uL (1.80-7.70); Neutrophils % (A) 56.6 %; Platelet Count 267 10*3/uL (140-440); RBC 3.63 10*6/uL (4.10-5.20); RDW 19.9 % (11.5-14.5); WBC 7.37 10*3/uL (4.50-10.00)
[2025-01-25 07:22] LABS: ALT 10 U/L (4-34); AST 23 U/L (14-36); African American GFR (CKD) >90 (>60 ml/min/1.73 sqM); Albumin 2.8 g/dL (3.5-5.0); Alkaline Phosphatase 91 U/L (38-126); Anion Gap 3 mmol/L; Blood Urea Nitrogen 8 mg/dL (7-17); Calcium 8.4 mg/dL (8.4-10.2); Carbon Dioxide 38 mmol/L (22-30); Chloride 98 mmol/L (98-107); Glucose 131 mg/dL (74-99); Non-African American GFR(CKD) 85 (>60 ml/min/1.73 sqM); Potassium 3.4 mmol/L (3.5-5.1); Sodium 139 mmol/L (137-145); Total Protein 5.8 g/dL (6.3-8.2)
[2025-01-25 07:25] LABS: Magnesium 0.9 mg/dL (1.6-2.3)
[2025-01-25] MEDS ORDERED: Magnesium Replacement Protocol 1 EACH MISC MISCELLANE PRN (08:00)
[2025-01-25] MEDS ORDERED: Potassium Replacement Protocol 1 EACH MISC MISCELLANE PRN (08:00)
[2025-01-25] MEDS: POTASSIUM CHLORIDE ER 20 MEQ TAB.ER PO SCH (09:42)
[2025-01-25] MEDS: MAGNESIUM SULFATE-D5W PMX 1 GM in DEXTROSE/WATER 1 100ML.BAG IVPB SCH (09:43)
[2025-01-25] MEDS: LACTULOSE 20 GM/30 ML CUP PO SCH (11:07)
[2025-01-25] MEDS: SENNOSIDES 8.6 MG TAB PO SCH (11:08)
[2025-01-25 11:39] LABS: Glucose,Whole Blood 269 mg/dL (70-110)
[2025-01-25 13:52] VITALS: BMI 40.8
[2025-01-25 15:40] LABS: African American GFR (CKD) >90 (>60 ml/min/1.73 sqM); Anion Gap 6 mmol/L; Blood Urea Nitrogen 9 mg/dL (7-17); Calcium 7.9 mg/dL (8.4-10.2); Carbon Dioxide 32 mmol/L (22-30); Chloride 98 mmol/L (98-107); Glucose 327 mg/dL (74-99); Magnesium 1.8 mg/dL (1.6-2.3); Non-African American GFR(CKD) 85 (>60 ml/min/1.73 sqM); Potassium 3.8 mmol/L (3.5-5.1); Sodium 136 mmol/L (137-145)
[2025-01-25 16:44] LABS: Glucose,Whole Blood 259 mg/dL (70-110)
--- NOTE | 2025-01-25 18:06 | P.PN ---
Subjective Progress Note Date: 01/25/25 HISTORY OF PRESENT ILLNESS: This is a 69-year-old female with a previous medical history signif icant for hypertension and hypertensive cardiovascular disease, hyperlipidemia, hypothyroidism, chronic gastroesophageal reflux disease with esophagitis, type 1 diabetes mellitus currently on insulin pump, vitamin D deficiency, diabetic neuropathy, patient also had history of spondylosis of the lumbar spine status post lumbar laminectomy back in 07/01/2022 followed by a wound dehiscence at the [facility] of the lumbar area and she ended up going back for another surgical intervention 2022 followed by a wound care of the surgical site, patient recovered very well from that, patient apparently was recently hospitalized at [facility] for urine from August 21, 2024 till August 27, 2024 after she was admitted for what appears to be an unstable patient myocardial infarction status post left heart catheterization that showed evidence of 20 to 30% stenosis of the left main artery, 40 to 50% stenosis of the LAD where she had a previous stent, and 99% of the RCA with collaterals from left to right, no intervention was done, patient also did have acute blood loss anemia status post 1 unit of packed red blood cells procedure was seen in consultation by general surgery who is recommended not to do any intervention at this point in time, patient was last hospitalized on November 27, 2024 after she was admitted for non-ST elevation myocardial infarction and ischemic cardiomyopathy with ejection fraction of 10 to 15%, at that time she was sent back to endocrinology, patient was discharged recently, under the having an epidural injection. By the pain clinic on the of this month, apparently she continues to yesterday with intractable nausea and vomiting not able to keep anything down, she was not in diabetic status at that time, she was given IV fluid resuscitation, she was given some insulin, she was sent home as outpatient, patient became a lot worse, she was started intractable nausea and vomiting and she was not keeping anything down, she became quite weak in general fatigue and she was brought to the ER again and she was found to be diabeticwith a bicarb level of 8 she was also found to have a lactic acidosis of 5, she was given IV fluid resuscitation, she was found to have a troponin level of 2 she was admitted to the hospital intensive care unit with a diagnosis of diabetic acidosis and lactic acidosis with non-ST elevation myocardial function, with cardiology consultation as well as pulmonary consultation was obtained. 01/19: Patient is laying down in bed in no apparent distress, she denies any chest pain at this time, she has no shortness of breath, her troponin is quite elevated, she was seen in consultation by cardiology, she has been started back on her metoprolol 25 mg orally twice every day, baby aspirin 81 mg once every day, Lipitor 80 mg once every day, she has been on heparin drip, she was seen in consultation by cardiology she has ruled in non-ST elevation [place], patient's chest pain-free at this point in time, she has underlying ischemic cardiomyopathy with ejection fraction of 15 %, we will continue to follow-up with the patient he was transition to Lantus 25 units at bedtime along with a sliding scale insulin as her anion gap has closed. 01/20: Patient is laying in her bed in no apparent distress, she is feeling better today than yesterday, yesterday she became quite confused, ended up going for a CT scan of the brain that was negative for acute infarct or bleed, chest x-ray showed pulmonary vascular congestion and cardiomegaly, patient need to be started back on her diuretics in the form of torsemide as well as potassium supplement, she was started yesterday on insulin drip as well she was kept on heparin drip, continue current treatment plan, keep the patient in ICU for now. 01/24: Patient is resting in bed in no apparent distress. She has been transferred out of the intensive care unit over the weekend. On 01/21, patient underwent cardiac catheterization with Dr. Campbell which revealed patent stent in the proximal LAD with mild to moderate diffuse disease involving the LAD with no evidence of high-grade stenosis. Chronic total occlusion of the small obtuse marginal branch of the left circumflex appears to be the same as before. Chronic total occlusion of the RCA which is also the same as before. Elevated left-sided filling pressures. 01/25: Patient is sitting up in bed in no apparent distress, she is feeling a lot better today, she complains of generalized fatigue and tiredness, she has not had a bowel movement since she come to the hospital, she was started back on Senokot 2 tablet once every day, MiraLAX 17 g in 8 ounce of water once every day and lactulose 20 g orally twice every day, beside that her magnesium level is low at 0.9, her potassium is low, we will replace her electrolyte today, I will keep the patient in the hospital for another 24 hours she can be discharged home tomorrow morning. REVIEW OF SYSTEMS: Constitutional: No documented fever, no chills, no night sweats. significant weight gain No weakness, fatigue or lethargy. No daytime sleepiness. HEENT: No headache. No blurred vision or double vision, no loss of vision. No loss of Hearing, no ringing in the ears, no dizziness. No nasal drainage or congestion. No epistaxis. No sore throat. Lungs: positive for shortness of breath, occasional cough, no sputum production. No wheezing. Reports dyspnea with activity, positive for orthopneam and PND Cardiovascular: No chest pain, positive for mild lower extremity edema. positive for palpitations. no paroxysmal nocturnal dyspnea. no orthopnea. No lightheadedness or dizziness. No syncopal episodes. Abdominal: Reports no abdominal pain. positive for nausea, vomiting. No diarrhea. No constipation. No bloody or tarry stools reports loss of appetite. Genitourinary: No dysuria, increased frequency, urgency. No urinary retention. Musculoskeletal: No myalgias. positive for muscle weakness, positive for gait dysfunction, no frequent falls. positive for back pain. No neck pain. Integumentary: No wounds, no lesions. No rash or pruritus. Positive for bruising to bilateral lower extremities. No change in hair or nails. Neurologic: No aphasia. No facial droop. No change in mentation. No head injury. No headache. Right lower extremity weakness, positive for paresthesia. Psychiatric: Positive depression. No anxiety. No mood swings. Endocrine: No abnormal blood sugars. No weight change. PHYSICAL EXAMINATION: General: this is a 69-year-old female laying down in bed in minimal distress HEENT: Head is atraumatic, normocephalic, pupils were equal round reactive to light and recommendation, extraocular muscle movement were intact, sclera nonicteric, conjunctivae were pale, mucous membranes of the mouth are somewhat dry. Neck: Supple, no JVP, normal carotid upstroke bilaterally, no lymphadenopathy. Chest: Decreased breath sounds at the bases, few rhonchi, no expiratory wheezes, no chest wall tenderness, no intercostal retractions Heart: First heart sound is normal, second heart sound is normal there is sy stolic ejection murmur 2/6 located in the left sternal border Abdomen: Soft, nontender, nondistended, positive bowel sounds. 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 Skin-Prep. ASSESSMENT AND PLAN: 1. Acute anion gap metabolic acidosis due to diabetic ketoacidosis as well as lactic acidosis patient patient is currently on Lantus 10 units twice every day along with a sliding scale insulin. 2. Acute non-ST elevation [place] in a patient with prior history coronary artery disease status post PCI of the LAD with recent left heart catheterization that was done July 2024 that showed evidence of left main disease 20 to 30%, LAD 4050% stenosis where the stent is and RCA 99% stenosis with collaterals from le ft to right. Patient is status post cardiac catheterization on 01/21 which revealed patent stent in the proximal LAD with no progression of disease. Continue patient on metoprolol 25 mg orally twice every day, aspirin 81 mg once every day, also continue patient on atorvastatin 40 mg orally once every day, keep LDL 55-70 continue heparin drip. Cardiology consultation appreciated. 3. History of pulmonary embolism. Continue patient on Eliquis 5 mg orally twice every day for life. 4. Paroxysmal atrial fibrillation/flutter. Continue patient on metoprolol 25 mg orally twice every day, continue Eliquis 5 mg orally twice every day for life. 5. Hypertension and hypertensive cardiovascular disease. Continue patient on metoprolol 25 mg orally twice every day, her blood pressure appears to be soft at this time, continue to monitor the patient very closely. 6. Hyperlipidemia. continue atorvastatin 80 mg orally once every day, monitor the patient the benefit, keep LDL 55-70. 7. Hypothyroidism. Continue patient on Synthroid 112 g orally once every day monitor TSH and free T4. 8. Diabetes mellitus type 1. Continue Lantus 10 units subcutaneously twice every day along with a sliding scale insulin for now. 9. GERD with esophagitis and hiatal hernia. Continue Protonix 40 mg orally once every day. 10. Obesity with obstructive sleep apnea and possible obesity hypoventilation syndrome patient will need to have a sleep study as an outpatient. 11. Vitamin D deficiency. Continue vitamin D3 2000 units once every day. 12. History of kidney stones. stable at this time 13. DVT prophylaxis. Continue Eliquis 5 mg orally twice every day. 14. GI prophylaxis. Continue Protonix 40 mg orally once every day. 15. Chronic low back pain due to spondylosis of the lumbar spine continue with hydrocodone and increase to every 6 hours as needed, Physical therapy evaluatio n. 16. History of gout. Continue patient on allopurinol 100 mg orally once every day. 17. Medical debility. Physical therapy evaluation. 18. Social consultation for discharge planning. 19. Hypomagnesemia and hypokalemia status post replacement. 20. Constipation. Start the patient on Senokot 2 tablet once every day, MiraLAX 17 g in 8 ounce of water once every day and lactulose 20 g orally twice every day. 21. Home tomorrow morning. Objective - Vital Signs Vital signs: Vital Signs Temp 98.1 F 01/25/25 03:56 Pulse 76 01/25/25 03:56 Resp 16 01/25/25 03:56 BP 113/74 01/25/25 03:56 Pulse Ox 99 01/25/25 08:38 FiO2 Intake & Output 01/24/25 01/25/25 01/25/25 18:59 06:59 18:59 Intake Total 222 20 50 Output Total 1000 650 Balance -778 -630 50 Weight 94.9 kg Intake: IV 20 Invasive Line 4 20 Oral 222 50 Output: Urine 1000 650 Other: Voiding Method Toilet External Catheter External Catheter - Labs CBC & Chem 7: 01/25/25 05:57 01/25/25 15:08 Labs: Abnormal Lab Results - Last 24 Hours (Table) 01/24/25 01/24/25 01/24/25 Range/Units 11:16 16:30 20:03 RBC (4.10-5.20) 10*6/uL Hgb (12.0-15.0) g/dL Hct (37.2-46.3) % MCH (27.0-32.0) pg MCHC (32.0-37.0) g/dL Monocytes # (0.20-1.00) 10*3/uL Potassium (3.5-5.1) mmol/L Carbon Dioxide (22-30) mmol/L Glucose (74-99) mg/dL POC Glucose (mg/dL) 213 H 235 H 250 H (70-110) mg/dL Magnesium (1.6-2.3) mg/dL Total Protein (6.3-8.2) g/dL Albumin (3.5-5.0) g/dL 01/25/25 01/25/25 01/25/25 Range/Units 05:46 05:57 05:57 RBC 3.63 L (4.10-5.20) 10*6/uL Hgb 8.9 L (12.0-15.0) g/dL Hct 30.0 L (37.2-46.3) % MCH 24.5 L (27.0-32.0) pg MCHC 29.7 L (32.0-37.0) g/dL Monocytes # 1.03 H (0.20-1.00) 10*3/uL Potassium 3.4 L (3.5-5.1) mmol/L Carbon Dioxide 38 H (22-30) mmol/L Glucose 131 H (74-99) mg/dL POC Glucose (mg/dL) 134 H (70-110) mg/dL Magnesium 0.9 L* (1.6-2.3) mg/dL Total Protein 5.8 L (6.3-8.2) g/dL Albumin 2.8 L (3.5-5.0) g/dL
[2025-01-25 20:16] LABS: Glucose,Whole Blood 179 mg/dL (70-110)
[2025-01-26 06:16] LABS: Glucose,Whole Blood 129 mg/dL (70-110)
[2025-01-26 09:33] VITALS: TEMP 97.9
[2025-01-26] MEDS: MAGNESIUM SULFATE-D5W PMX 1 GM in DEXTROSE/WATER 1 100ML.BAG IVPB SCH (10:13)
[2025-01-26 11:32] LABS: Glucose,Whole Blood 322 mg/dL (70-110)
[2025-01-26 12:09] VITALS: BP 129/80; PULSE 69; RESP 14
--- NOTE | 2025-01-26 14:45 | P.PN ---
Subjective Progress Note Date: 01/26/25 HISTORY OF PRESENT ILLNESS: This is a 69-year-old female with a previous medical history signif icant for hypertension and hypertensive cardiovascular disease, hyperlipidemia, hypothyroidism, chronic gastroesophageal reflux disease with esophagitis, type 1 diabetes mellitus currently on insulin pump, vitamin D deficiency, diabetic neuropathy, patient also had history of spondylosis of the lumbar spine status post lumbar laminectomy back in 07/01/2022 followed by a wound dehiscence at the [facility] of the lumbar area and she ended up going back for another surgical intervention 2022 followed by a wound care of the surgical site, patient recovered very well from that, patient apparently was recently hospitalized at [facility] for urine from August 21, 2024 till August 27, 2024 after she was admitted for what appears to be an unstable patient myocardial infarction status post left heart catheterization that showed evidence of 20 to 30% stenosis of the left main artery, 40 to 50% stenosis of the LAD where she had a previous stent, and 99% of the RCA with collaterals from left to right, no intervention was done, patient also did have acute blood loss anemia status post 1 unit of packed red blood cells procedure was seen in consultation by general surgery who is recommended not to do any intervention at this point in time, patient was last hospitalized on November 27, 2024 after she was admitted for non-ST elevation myocardial infarction and ischemic cardiomyopathy with ejection fraction of 10 to 15%, at that time she was sent back to endocrinology, patient was discharged recently, under the having an epidural injection. By the pain clinic on the of this month, apparently she continues to yesterday with intractable nausea and vomiting not able to keep anything down, she was not in diabetic status at that time, she was given IV fluid resuscitation, she was given some insulin, she was sent home as outpatient, patient became a lot worse, she was started intractable nausea and vomiting and she was not keeping anything down, she became quite weak in general fatigue and she was brought to the ER again and she was found to be diabeticwith a bicarb level of 8 she was also found to have a lactic acidosis of 5, she was given IV fluid resuscitation, she was found to have a troponin level of 2 she was admitted to the hospital intensive care unit with a diagnosis of diabetic acidosis and lactic acidosis with non-ST elevation myocardial function, with cardiology consultation as well as pulmonary consultation was obtained. 01/19: Patient is laying down in bed in no apparent distress, she denies any chest pain at this time, she has no shortness of breath, her troponin is quite elevated, she was seen in consultation by cardiology, she has been started back on her metoprolol 25 mg orally twice every day, baby aspirin 81 mg once every day, Lipitor 80 mg once every day, she has been on heparin drip, she was seen in consultation by cardiology she has ruled in non-ST elevation PR, patient's chest pain-free at this point in time, she has underlying ischemic cardiomyopathy with ejection fraction of 15 %, we will continue to follow-up with the patient he was transition to Lantus 25 units at bedtime along with a sliding scale insulin as her anion gap has closed. 01/20: Patient is laying in her bed in no apparent distress, she is feeling better today than yesterday, yesterday she became quite confused, ended up going for a CT scan of the brain that was negative for acute infarct or bleed, chest x-ray showed pulmonary vascular congestion and cardiomegaly, patient need to be started back on her diuretics in the form of torsemide as well as potassium supplement, she was started yesterday on insulin drip as well she was kept on heparin drip, continue current treatment plan, keep the patient in ICU for now. 01/24: Patient is resting in bed in no apparent distress. She has been transferred out of the intensive care unit over the weekend. On 01/21, patient underwent cardiac catheterization with Dr. Campbell which revealed patent stent in the proximal LAD with mild to moderate diffuse disease involving the LAD with no evidence of high-grade stenosis. Chronic total occlusion of the small obtuse marginal branch of the left circumflex appears to be the same as before. Chronic total occlusion of the RCA which is also the same as before. Elevated left-sided filling pressures. 01/25: Patient is sitting up in bed in no apparent distress, she is feeling a lot better today, she complains of generalized fatigue and tiredness, she has not had a bowel movement since she come to the hospital, she was started back on Senokot 2 tablet once every day, MiraLAX 17 g in 8 ounce of water once every day and lactulose 20 g orally twice every day, beside that her magnesium level is low at 0.9, her potassium is low, we will replace her electrolyte today, I will keep the patient in the hospital for another 24 hours she can be discharged home tomorrow morning. 01/26: Patient is sitting up in the chair in no apparent distress, her magnesium was a bit on the lower side at 1.5 patient will be given magnesium sulfate 2 g IV piggyback x 1, I will discharge the patient home today, she will follow-up with me as an outpatient next week, she is ambulating very well using her walker, her will be taking her home today, and she has an appointment in the office on Friday. REVIEW OF SYSTEMS: Constitutional: No documented fever, no chills, no night sweats. significant weight gain No weakness, fatigue or lethargy. No daytime sleepiness. HEENT: No headache. No blurred vision or double vision, no loss of vision. No loss of Hearing, no ringing in the ears, no dizziness. No nasal drainage or congestion. No epistaxis. No sore throat. Lungs: positive for shortness of breath, occasional cough, no sputum production. No wheezing. Reports dyspnea with activity, positive for orthopneam and PND Cardiovascular: No chest pain, positive for mild lower extremity edema. positive for palpitations. no paroxysmal nocturnal dyspnea. no orthopnea. No lightheadedness or dizziness. No syncopal episodes. Abdominal: Reports no abdominal pain. positive for nausea, vomiting. No diarrhea. No constipation. No bloody or tarry stools reports loss of appetite. Genitourinary: No dysuria, increased frequency, urgency. No urinary retention. Musculoskeletal: No myalgias. positive for muscle weakness, positive for gait dysfunction, no frequent falls. positive for back pain. No neck pain. Integumentary: No wounds, no lesions. No rash or pruritus. Positive for bruising to bilateral lower extremities. No change in hair or nails. Neurologic: No aphasia. No facial droop. No change in mentation. No head injury. No headache. Right lower extremity weakness, positive for paresthesia. Psychiatric: Positive depression. No anxiety. No mood swings. Endocrine: No abnormal blood sugars. No weight change. PHYSICAL EXAMINATION: General: this is a 69-year-old female laying down in bed in minimal distress HEENT: Head is atraumatic, normocephalic, pupils were equal round reactive to light and recommendation, extraocular muscle movement were intact, sclera nonicteric, conjunctivae were pale, mucous membranes of the mouth are somewhat dry. Neck: Supple, no JVP, normal carotid upstroke bilaterally, no lymphadenopathy. Chest: Decreased breath sounds at the bases, few rhonchi, no expiratory wheezes, no chest wall tenderness, no intercostal retractions Heart: First heart sound is normal, second heart sound is normal there is systolic ejection murmur 2/6 located in the left sternal border Abdomen: Soft, nontender, nondistended, positive bowel sounds. 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 Skin-Prep. ASSESSMENT AND PLAN: 1. Acute anion gap metabolic acidosis due to diabetic ketoacidosis as well as lactic acidosis patient patient is currently on Lantus 10 units twice every day along with a sliding scale insulin. 2. Acute non-ST elevation PR in a patient with prior history coronary artery disease status post PCI of the LAD with recent left heart catheterization that was done July 2024 that showed evidence of left main disease 20 to 30%, LAD 4050% stenosis where the stent is and RCA 99% stenosis with collaterals from left to right. Patient is status post cardiac catheterization on 01/21 which revealed patent stent in the proximal LAD with no progression of disease. Continue patient on metoprolol 25 mg orally twice every day, aspirin 81 mg once every day, also continue patient on atorvastatin 40 mg orally once every day, keep LDL 55-70 continue heparin drip. Cardiology consultation appreciated. 3. History of pulmonary embolism. Continue patient on Eliquis 5 mg orally twice every day for life. 4. Paroxysmal atrial fibrillation/flutter. Continue patient on metoprolol 25 mg orally twice every day, continue Eliquis 5 mg orally twice every day for life. 5. Hypertension and hypertensive cardiovascular disease. Continue patient on metoprolol 25 mg orally twice every day, her blood pressure appears to be soft at this time, continue to monitor the patient very closely. 6. Hyperlipidemia. continue atorvastatin 80 mg orally once every day, monitor the patient the benefit, keep LDL 55-70. 7. Hypothyroidism. Continue patient on Synthroid 112 g orally once every day monitor TSH and free T4. 8. Diabetes mellitus type 1. Continue Lantus 10 units subcutaneously twice every day along with a sliding scale insulin for now. 9. GERD with esophagitis and hiatal hernia. Continue Protonix 40 mg orally once every day. 10. Obesity with obstructive sleep apnea and possible obesity hypoventilation syndrome patient will need to have a sleep study as an outpatient. 11. Vitamin D deficiency. Continue vitamin D3 2000 units once every day. 12. History of kidney stones. stable at this time 13. DVT prophylaxis. Continue Eliquis 5 mg orally twice every day. 14. GI prophylaxis. Continue Protonix 40 mg orally once every day. 15. Chronic low back pain due to spondylosis of the lumbar spine continue with hydrocodone and increase to every 6 hours as needed, Physical therapy evaluation. 16. History of gout. Continue patient on allopurinol 100 mg orally once every day. 17. Medical debility. Physical therapy evaluation. 18. Social consultation for discharge planning. 19. Hypomagnesemia and hypokalemia status post replacement. 20. Constipation. Start the patient on Senokot 2 tablet once every day, MiraLAX 17 g in 8 ounce of water once every day and lactulose 20 g orally twice every day. 21. Home today Objective - Vital Signs Vital signs: Vital Signs Temp 97.9 F 01/26/25 12:00 Pulse 69 01/26/25 12:00 Resp 14 01/26/25 12:00 BP 129/80 01/26/25 12:00 Pulse Ox 100 01/26/25 12:00 FiO2 Intake & Output 01/25/25 01/26/25 01/26/25 18:59 06:59 18:59 Intake Total 272 10 247 Output Total 500 900 Balance -228 -890 247 Weight 94.9 kg 91.1 kg Intake: IV 10 10 Invasive Line 4 10 10 Oral 272 237 Output: Urine 500 900 Other: Voiding Method External Catheter Bedside Commode Bedside Commode # Voids 1 2 # Bowel Movements 1 - Labs CBC & Chem 7: 01/25/25 05:57 01/25/25 15:08 Labs: Abnormal Lab Results - Last 24 Hours (Table) 01/25/25 01/25/25 01/25/25 Range/Units 15:08 16:43 20:15 Sodium 136 L (137-145) mmol/L Carbon Dioxide 32 H (22-30) mmol/L Glucose 327 H (74-99) mg/dL POC Glucose (mg/dL) 259 H 179 H (70-110) mg/dL Calcium 7.9 L (8.4-10.2) mg/dL Magnesium (1.6-2.3) mg/dL 01/26/25 01/26/25 01/26/25 Range/Units 06:14 06:57 11:30 Sodium (137-145) mmol/L Carbon Dioxide (22-30) mmol/L Glucose (74-99) mg/dL POC Glucose (mg/dL) 129 H 322 H (70-110) mg/dL Calcium (8.4-10.2) mg/dL Magnesium 1.5 L (1.6-2.3) mg/dL
--- NOTE | 2025-01-26 14:48 | P.DS ---
Providers Date of admission: 01/17/25 23:37 Expected date of discharge: 01/26/25 Attending physician: Teresa Fields Consults: 01/18/25 00:23 Consult Physician Routine Consulting Provider: Thiago Go Consult Reason/Comments: elevTrop Do you want consulting provider notified?: Yes 01/18/25 06:43 Consult Physician Routine Consulting Provider: Cheryle Foreman Consult Reason/Comments: icu? Do you want consulting provider notified?: Yes Primary care physician: Teresa Fields Hospital Course: HISTORY OF PRESENT ILLNESS: This is a 69-year-old female with a previous medical history significant for hypertension and hypertensive cardiovascular disease, hyperlipidemia, hypothyroidism, chronic gastroesophageal reflux disease with esophagitis, type 1 diabetes mellitus currently on insulin pump, vitamin D deficiency, diabetic neuropathy, patient also had history of spondylosis of the lumbar spine status post lumbar laminectomy back in 07/01/2022 followed by a wound dehiscence at the [facility] of the lumbar area and she ended up going back for another surgical intervention 2022 followed by a wound care of the surgical site, patient recovered very well from that, patient apparently was recently hospitalized at [facility] for urine from August 21, 2024 till August 27, 2024 after she was admitted for what appears to be an unstable patient myocardial infarction status post left heart catheterization that showed evidence of 20 to 30% stenosis of the left main artery, 40 to 50% stenosis of the LAD where she had a previous stent, and 99% of the RCA with collaterals from left to right, no intervention was done, patient also did have acute blood loss anemia status post 1 unit of packed red blood cells procedure was seen in consultation by general surgery who is recommended not to do any intervention at this point in time, patient was last hospitalized on November 27, 2024 after she was admitted for non-ST elevation myocardial infarction and ischemic cardiomyopathy with ejection fraction of 10 to 15%, at that time she was sent back to endocrinology, patient was discharged recently, under the having an epidural injection. By the pain clinic on the of this month, apparently she continues to yesterday with intractable nausea and vomiting not able to keep anything down, she was not in diabetic status at that time, she was given IV fluid resuscitation, she was given some insulin, she was sent home as outpatient, patient became a lot worse, she was started intractable nausea and vomiting and she was not keeping anything down, she became quite weak in general fatigue and she was brought to the ER again and she was found to be diabeticwith a bicarb level of 8 she was also found to have a lactic acidosis of 5, she was given IV fluid resuscitation, she was found to have a troponin level of 2 she was admitted to the hospital intensive care unit with a diagnosis of diabetic acidosis and lactic acidosis with non-ST elevation myocardial function, with cardiology consultation as well as pulmonary consultation was obtained. 01/19: Patient is laying down in bed in no apparent distress, she denies any chest pain at this time, she has no shortness of breath, her troponin is quite elevated, she was seen in consultation by cardiology, she has been started back on her metoprolol 25 mg orally twice every day, baby aspirin 81 mg once every day, Lipitor 80 mg once every day, she has been on heparin drip, she was seen in consultation by cardiology she has ruled in non-ST elevation DE, patient's chest pain-free at this point in time, she has underlying ischemic cardiomyopathy with ejection fraction of 15 %, we will continue to follow-up with the patient he was transition to Lantus 25 units at bedtime along with a sliding scale insulin as her anion gap has closed. 01/20: Patient is laying in her bed in no apparent distress, she is feeling better today than yesterday, yesterday she became quite confused, ended up going for a CT scan of the brain that was negative for acute infarct or bleed, chest x-ray showed pulmonary vascular congestion and cardiomegaly, patient need to be started back on her diuretics in the form of torsemide as well as potassium supplement, she was started yesterday on insulin drip as well she was kept on heparin drip, continue current treatment plan, keep the patient in ICU for now. 01/24: Patient is resting in bed in no apparent distress. She has been transferred out of the intensive care unit over the weekend. On 01/21, patient underwent cardiac catheterization with Dr. Campbell which revealed patent stent in the proximal LAD with mild to moderate diffuse disease involving the LAD with no evidence of high-grade stenosis. Chronic total occlusion of the small obtuse marginal branch of the left circumflex appears to be the same as before. Chronic total occlusion of the RCA which is also the same as before. Elevated left-sided filling pressures. 01/25: Patient is sitting up in bed in no apparent distress, she is feeling a lot better today, she complains of generalized fatigue and tiredness, she has not had a bowel movement since she come to the hospital, she was started back on Senokot 2 tablet once every day, MiraLAX 17 g in 8 ounce of water once every day and lactulose 20 g orally twice every day, beside that her magnesium level is low at 0.9, her potassium is low, we will replace her electrolyte today, I will keep the patient in the hospital for another 24 hours she can be discharged home tomorrow morning. 01/26: Patient is sitting up in the chair in no apparent distress, her magnesium was a bit on the lower side at 1.5 patient will be given magnesium sulfate 2 g IV piggyback x 1, I will discharge the patient home today, she will follow-up with me as an outpatient next week, she is ambulating very well using her walker, her will be taking her home today, and she has an appointment in the office on Friday. Discharge diagnoses: 1. Acute anion gap metabolic acidosis due to diabetic ketoacidosis as well as lactic acidosis 2. Acute non-ST elevation DE in a patient with prior history coronary artery disease status post PCI of the LAD with recent left heart catheterization that was done July 2024 that showed evidence of left main disease 20 to 30%, LAD 4050% stenosis where the stent is and RCA 99% stenosis with collaterals from left to right. 3. History of pulmonary embolism. 4. Paroxysmal atrial fibrillation/flutter. 5. Hypertension and hypertensive cardiovascular disease. 6. Hyperlipidemia. 7. Hypothyroidism. 8. Diabetes mellitus type 1. 9. GERD with esophagitis and hiatal hernia. 10. Obesity with obstructive sleep apnea and possible obesity hypoventilation syndrome 11. Vitamin D deficiency. 12. History of kidney stones. 13. Chronic low back pain due to spondylosis of the lumbar spine continue 14. History of gout. 15. Hypomagnesemia and hypokalemia status post replacement. Patient Condition at Discharge: Stable Plan - Discharge Summary Discharge Rx Participant: No New Discharge Prescriptions: New Lactulose [Cephulac] 20 gm PO BID #16 oz polyethylene glycoL 3350 [Miralax] 17 gm PO DAILY packet Sennosides [Senokot] 8.6 mg PO DAILY tab Atorvastatin [Lipitor] 40 mg PO HS #30 tablet Continue Levothyroxine Sodium [Synthroid] 112 mcg PO DAILY@0600 Famotidine [Pepcid] 20 mg PO BID@09,2099 Tamsulosin [Flomax] 0.4 mg PO DAILY@0900 DULoxetine HCL [Cymbalta] 30 mg PO HS@2100 Aspirin 81 mg PO DAILY@0900 Losartan [Cozaar] 25 mg PO DAILY tab allopurinoL 100 mg PO HS@2099 Insulin Glargine,Hum.rec.anlog [Lantus Solostar Pen] 24 units SQ HS@2099 Apixaban [Eliquis] 5 mg PO BID@899,2099 Empagliflozin [Jardiance] 25 mg PO DAILY@09 Metoprolol Tartrate [Lopressor] 25 mg PO BID@899,2099 Ondansetron [Zofran] 4 mg PO Q6H PRN PRN Reason: Nausea INSULIN LISPRO (HumaLOG) [HumaLOG] See Protocol SQ ACHS Torsemide [Soaanz] 40 mg PO DAILY@0600 Potassium Chloride ER [K-Dur 20] 20 meq PO DAILY@0900 Omeprazole 20 mg PO DAILY@0600 Metoclopramide HCl [Reglan] 5 mg PO TID PRN #12 tablet PRN Reason: Nausea HYDROcodone/APAP 10-325MG [Denio 10-325] 1 tab PO Q12H PRN PRN Reason: Pain Discharge Medication List Levothyroxine Sodium [Synthroid] 112 mcg PO DAILY@0600 05/16/19 [History] Famotidine [Pepcid] 20 mg PO BID@0900,209904/26/20 [History] Apixaban [Eliquis] 5 mg PO BID@0900,209908/21/24 [History] Empagliflozin [Jardiance] 25 mg PO DAILY@89908/21/24 [History] Metoprolol Tartrate [Lopressor] 25 mg PO BID@0900,209910/23/24 [History] Aspirin 81 mg PO DAILY@0900 11/26/24 [History] DULoxetine HCL [Cymbalta] 30 mg PO HS@209911/26/24 [History] INSULIN LISPRO (HumaLOG) [HumaLOG] See Protocol SQ ACHS 11/26/24 [History] Omeprazole 20 mg PO DAILY@59911/26/24 [History] Ondansetron [Zofran] 4 mg PO Q6H PRN 11/26/24 [History] Potassium Chloride ER [K-Dur 20] 20 meq PO DAILY@89911/26/24 [History] Tamsulosin [Flomax] 0.4 mg PO DAILY@89911/26/24 [History] Torsemide [Soaanz] 40 mg PO DAILY@59911/26/24 [History] Losartan [Cozaar] 25 mg PO DAILY tab 12/01/24 [Rx] Metoclopramide HCl [Reglan] 5 mg PO TID PRN #12 tablet 01/17/25 [Rx] HYDROcodone/APAP 10-325MG [Denio 10-325] 1 tab PO Q12H PRN 01/18/25 [History] Insulin Glargine,Hum.rec.anlog [Lantus Solostar Pen] 24 units SQ HS@209901/18/25 [History] allopurinoL 100 mg PO HS@209901/18/25 [History] Atorvastatin [Lipitor] 40 mg PO HS #30 tablet 01/26/25 [Rx] Lactulose [Cephulac] 20 gm PO BID #16 oz 01/26/25 [Rx] Sennosides [Senokot] 8.6 mg PO DAILY tab 01/26/25 [Rx] polyethylene glycoL 3350 [Miralax] 17 gm PO DAILY packet 01/26/25 [Rx] Follow up Appointment(s)/Referral(s): Teresa Fields MD [Primary Care Provider] - 1 Week (office did not answer please call and make appointment) Juan Pablo Elkins DO [STAFF PHYSICIAN] - 02/04/25 10:30 am Patient Instructions/Handouts: *Surgery [facility] - After Heart Catheterization - Stitching Machine Operator Instructions, Diabetic Ketoacidosis (DC), Acute Nausea and Vomiting (DC) Discharge Disposition: HOME WITH HOME HEALTH SERVICES
== END 2025-01-26 14:31 | disposition home health service (06) | DRG 280 ==
LOC: EC 18:22 → 5NMEDONC 23:36 → OBSVTOIN 23:37 → 3SCARD 01-18 00:24 → 2SICU 01-18 07:21 → 3SCARD 01-18 07:23 → 2SICU 01-18 07:27 → 3SCARD 01-22 06:21
PROVIDERS: ADMIT Internal Medicine; ATTEND Internal Medicine
PROC: B41F1ZZ Fluoroscopy of Right Lower Extremity Arteries using Low Osmolar Contrast (ICD-10-PCS; principal; 2025-01-21 14:30)
PROC: 4A023N7 Measurement of Cardiac Sampling and Pressure, Left Heart, Percutaneous Approach (ICD-10-PCS; principal; 2025-01-21 14:30)
PROC: B2111ZZ Fluoroscopy of Multiple Coronary Arteries using Low Osmolar Contrast (ICD-10-PCS; principal; 2025-01-21 14:30)
DX: I21.4 Non-ST elevation (NSTEMI) myocardial infarction (principal); E10.10 Type 1 diabetes mellitus with ketoacidosis without coma; I50.23 Acute on chronic systolic (congestive) heart failure; E66.2 Morbid (severe) obesity with alveolar hypoventilation; I48.92 Unspecified atrial flutter; I11.0 Hypertensive heart disease with heart failure; J96.11 Chronic respiratory failure with hypoxia; E86.0 Dehydration; I48.0 Paroxysmal atrial fibrillation; E10.40 Type 1 diabetes mellitus with diabetic neuropathy, unspecified; E03.9 Hypothyroidism, unspecified; I50.22 Chronic systolic (congestive) heart failure; E10.622 Type 1 diabetes mellitus with other skin ulcer; Z79.4 Long term (current) use of insulin; I25.5 Ischemic cardiomyopathy; E78.5 Hyperlipidemia, unspecified; I25.10 Atherosclerotic heart disease of native coronary artery without angina pectoris; Z79.890 Hormone replacement therapy; Z68.39 Body mass index [BMI] 39.0-39.9, adult; Z79.01 Long term (current) use of anticoagulants; E55.9 Vitamin D deficiency, unspecified; E83.42 Hypomagnesemia; E87.6 Hypokalemia; G89.29 Other chronic pain; I25.2 Old myocardial infarction; I45.9 Conduction disorder, unspecified; I49.3 Ventricular premature depolarization; K21.00 Gastro-esophageal reflux disease with esophagitis, without bleeding; K44.9 Diaphragmatic hernia without obstruction or gangrene; K52.9 Noninfective gastroenteritis and colitis, unspecified; K57.30 Diverticulosis of large intestine without perforation or abscess without bleeding; K59.00 Constipation, unspecified; K80.20 Calculus of gallbladder without cholecystitis without obstruction; M47.816 Spondylosis without myelopathy or radiculopathy, lumbar region; Z79.82 Long term (current) use of aspirin; Z79.84 Long term (current) use of oral hypoglycemic drugs; Z79.899 Other long term (current) drug therapy; Z82.49 Family history of ischemic heart disease and other diseases of the circulatory system; Z90.710 Acquired absence of both cervix and uterus; Z95.5 Presence of coronary angioplasty implant and graft; Z96.41 Presence of insulin pump (external) (internal); Z87.442 Personal history of urinary calculi; Z86.711 Personal history of pulmonary embolism; M10.9 Gout, unspecified
CPT/HCPCS: 36415; 70450; 71045; 74177; 80048; 80053; 81001; 82009; 82803; 83036; 83605; 83690; 83735; 83880; 84100; 84443; 84484; 85025; 85610; 85730; 93005; 93308; 93458; 94760; 96361; 96365; 96366; 96367; 96368; 96375; 99291